=== PATIENT | male | born 1960 | race Caucasian/White ===

== ENCOUNTER 2017-08-30 14:30 | Outpatient (RCR) | payer MEDICARE, SELFPAY ==
[2017-08-10 10:41] VITALS: BP 138/70; PULSE 88; RESP 18; TEMP 37.1; BMI 31.0
--- NOTE | 2017-08-10 11:52 | HP.PCM_ITS ---
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 Code(s): L97.219 - Non-pressure chronic ulcer of right calf with unspecified severity (2) Ulcer of left lower leg Status: Chronic Current Visit: Yes Qualifiers: Non-pressure ulcer stage: with fat layer exposed Qualified Code(s): L97.922 - Non-pressure chronic ulcer of unspecified part of left lower leg with fat layer exposed Code(s): L97.929 - Non-pressure chronic ulcer of unspecified part of left lower leg with unspecified severity (3) Mental deficiency Status: Chronic Current Visit: Yes Code(s): F79 - Unspecified intellectual disabilities (4) Left leg cellulitis Status: Acute Current Visit: Yes Code(s): L03.116 - Cellulitis of left lower limb (5) HTN (hypertension) Status: Chronic Current Visit: No Qualifiers: Hypertension type: essential hypertension Code(s): I10 - Essential (primary) hypertension (6) Noncompliance Status: Chronic Current Visit: Yes Code(s): Z91.19 - Patient's noncompliance with other medical treatment and regimen (7) Leg swelling Status: Chronic Current Visit: Yes Code(s): M79.89 - Other specified soft tissue disorders (8) Edema of both legs Status: Chronic Current Visit: Yes Code(s): R60.0 - Localized edema History of Present Illness Date of Service: 08/10/17 Chief Complaint: Large ulceration of the right lateral calf and 3 ulcerations of the left distal lower extremity; bilateral lower extremity swelling and edema ; left lower extremity cellulitis History of Wound: This is a developmentally disabled 57-year-old male who presents with ulcerations of both lower extremities. These are relatively recent. The patient is a former patient at the [facility], treated for similar problems in the past. The patient sleeps in a recliner, and spends long hours each day and a sitting position. He has been advised to elevate his lower extremities to heart level, or higher. However, he is noncompliant, and resolutely refuses to do so. He lives with his father, who confirms his son's noncompliance, and indicates his inability to convince his son into applying with recommended measures. Patient has failed to elevate his lower extremities, spends long hours each day and a sitting position, and is not wearing his compression stockings, as formerly recommended. He presents now with bilateral lower extremity swelling and edema , which is worse in the right lower extremity, bilateral lower extremity ulcerations, and cellulitis of the left calf. The patient spends most of his day sitting around, watching TV. The patient is communicative, but is obviously developmentally disabled and with a diminished IQ. The patient has undergone a venous duplex examination which is completely normal. There is no evidence of superficial venous incompetence. The patient's noninvasive lower extremity arterial study is also normal, with triphasic waveforms at ankle level bilaterally, and normal ankle?brachial indices bilaterally. Past Medical History Past Medical History: Chronic Problems Ulcer of right calf (Chronic) Noncompliance (Chronic) Leg swelling (Chronic) Edema of both legs (Chronic) Ulcer of left lower leg (Chronic) Mental deficiency (Chronic) HTN (hypertension) (Chronic) Surgical History: tonsillectomy Allergies/Adverse Reactions: Allergies No Known Allergies Allergy (Verified 06/20/17 13:34) Home Medications: Ambulatory Orders Medication Instructions Recorded Lisinopril [Zestril] 10 mg PO DAILY 12/15/16 - Family History Paternal - - No heart disease. Patient's father is alive, aged 89, and healthy. Maternal Diabetes, - - History of cardiac disease Lives: With Family Smoking Status: Never smoker Tobacco Use: Non-smoker Alcohol: None Drugs: None Review of Systems Constitutional: Reports: - - Patient suffers from mental deficiency. Denies: Chills, Fever, Weight Change Eyes: Denies: Pain, Vision Change HEENT: Denies: Difficulty Hearing, Difficulty Swallowing, Sinus Congestion Cardiovascular: Denies: Chest Pain, Palpitations Respiratory: Denies: Cough, Shortness of Breath Gastrointestinal: Denies: Diarrhea, Nausea, Vomiting Genitourinary: Denies: Dysuria, Hematuria Endocrine: Denies: Heat/ Cold Intolerance, Polydipsia, Polyuria Hematologic/ Lymphatic: Denies: Easy Bruising, Easy Bleeding - Physical Exam Vital Signs Temp Pulse Resp BP 98.7 F 88 18 138/70 H 08/10/17 10:41 08/10/17 10:41 08/10/17 10:41 08/10/17 10:41 General: Alert, Cooperative, No apparent distress, Well developed, Well nourished, - - Suffers from mental deficiency HEENT: Atraumatic, PERRLA, EOMI, Normocephalic Oral: Moist Mucosa Neck: No JVD, Negative Carotid Bruits, No Nodes, No Nuchal Rigidity, Trachea Midline Lungs: Clear to auscultation, Normal air movement, No rhonchi, No wheeze, No rales Cardiovascular: Regular Rhythm, Normal S1, Normal S2, No murmurs Abdomen: Soft, Non Tender, Non-Distended Extremities: No clubbing, No cyanosis, No Calf Tenderness, - - An ulceration is noted on the right lateral calf. 3 ulcerations are noted on the left calf. Dimensions are documented elsewhere. Bilateral lower extremity swelling and edema is noted, which is worse in the right lower extremity. Cellulitis is noted of the left calf. Wound Measurements and Assessment WC - Nurse 1 - General Ulcer Measurement Start: 08/10/17 10:41 Freq: Status: Active Protocol: Activity Type Activity Date Activity User E-Sign Co-Sign Detail Recorded Client Recorded Date Recorded By Document 08/10/17 10:41 [id number] 08/10/17 11:01 08/10/17 10:41 Wound Center Nurse 1 [Ulcer Assessment] 6-left lateral leg -Combined with other wound No -Current Size (cm) - Length 1.6 -Current Size (cm) - Width 2.5 -Current Size (cm) - Depth 0.1 -Total Square Cm 4.00 -Photo Taken Yes -Epithelialization None Present -Tunneling No -Undermining/Tunneling No -Circular Undermining No -Classification - Thickness Unclassifiable (Eschar Covered ) -Exudate Amt Small (1-33%) -Exudate Type Serosanguineous -Wound Margin Flat & Intact -Granulation Amt None Present (0 %) -Slough/Fibrin Yes -Necrosis Amt Large (67-100%) -Necrotic Tissue Type Adherent Slough -Structure Exposed N/A -Texture (Kathleen-wound Skin Appearance) Assessed Localized Edema -Moisture (Kathleen-wound Skin Appearance Assessed ) Dry/Scaly -Color (Kathleen-wound Skin Appearance) Assessed Erythema Hemosiderin Staining -Temperature (Kathleen-wound Skin No Abnormality Appearance) (Pt Warm) -Tenderness on Palpation (Kathleen-wound No Skin Appearance) -Ulcer Cleansing Rinsed/ Irrigated with Saline -Foul Odor after Cleansing No -Anesthetic Used 4% Lidocaine Solution 5-Left araujo -Combined with other wound No -Current Size (cm) - Length 3 -Current Size (cm) - Width 2.8 -Current Size (cm) - Depth 0.1 -Total Square Cm 8.4 -Photo Taken Yes -Epithelialization None Present -Tunneling No -Undermining/Tunneling No -Circular Undermining No -Classification - Thickness Unclassifiable (Eschar Covered ) -Exudate Amt Small (1-33%) -Exudate Type Serosanguineous -Wound Margin Flat & Intact -Granulation Amt None Present (0 %) -Slough/Fibrin Yes -Necrosis Amt Large (67-100%) -Necrotic Tissue Type Adherent Slough -Structure Exposed N/A -Texture (Kathleen-wound Skin Appearance) Assessed Localized Edema -Moisture (Kathleen-wound Skin Appearance Assessed ) Dry/Scaly -Color (Kathleen-wound Skin Appearance) Assessed Erythema Hemosiderin Staining -Temperature (Kathleen-wound Skin No Abnormality Appearance) (Pt Warm) -Tenderness on Palpation (Kathleen-wound No Skin Appearance) -Ulcer Cleansing Rinsed/ Irrigated with Saline -Foul Odor after Cleansing No -Anesthetic Used 4% Lidocaine Solution 4-left medial leg -Combined with other wound No -Current Size (cm) - Length 0.8 -Current Size (cm) - Width 1.3 -Current Size (cm) - Depth 0.1 -Total Square Cm 1.04 -Photo Taken Yes -Epithelialization None Present -Tunneling No -Undermining/Tunneling No -Circular Undermining No -Classification - Thickness Unclassifiable (Eschar Covered ) -Exudate Amt Small (1-33%) -Exudate Type Serosanguineous -Wound Margin Flat & Intact -Granulation Amt None Present (0 %) -Slough/Fibrin Yes -Necrosis Amt Large (67-100%) -Necrotic Tissue Type Adherent Slough -Structure Exposed N/A -Texture (Kathleen-wound Skin Appearance) Assessed Localized Edema -Moisture (Kathleen-wound Skin Appearance Assessed ) Dry/Scaly -Color (Kathleen-wound Skin Appearance) Assessed Erythema Rubor -Temperature (Kathleen-wound Skin No Abnormality Appearance) (Pt Warm) -Tenderness on Palpation (Kathleen-wound No Skin Appearance) -Ulcer Cleansing Rinsed/ Irrigated with Saline -Foul Odor after Cleansing No -Anesthetic Used 4% Lidocaine Solution 3-right lateral leg -Combined with other wound No -Current Size (cm) - Length 3 -Current Size (cm) - Width 2 -Current Size (cm) - Depth 0.1 -Total Square Cm 6 -Photo Taken Yes -Epithelialization None Present -Tunneling No -Undermining/Tunneling No -Circular Undermining No -Classification - Thickness Unclassifiable (Eschar Covered ) -Exudate Amt Small (1-33%) -Exudate Type Serosanguineous -Wound Margin Flat & Intact -Granulation Amt None Present (0 %) -Slough/Fibrin Yes -Necrosis Amt Large (67-100%) -Necrotic Tissue Type Adherent Slough -Structure Exposed N/A -Texture (Kathleen-wound Skin Appearance) Assessed Localized Edema -Moisture (Kathleen-wound Skin Appearance Assessed ) Dry/Scaly -Color (Kathleen-wound Skin Appearance) Assessed -Temperature (Kathleen-wound Skin No Abnormality Appearance) (Pt Warm) -Tenderness on Palpation (Kathleen-wound No Skin Appearance) -Ulcer Cleansing Rinsed/ Irrigated with Saline -Foul Odor after Cleansing No -Anesthetic Used 4% Lidocaine Solution [Edema Assessment] -Lower Limb Edema Present Yes -Right Calf (cm) 44 -Right Ankle (cm) 26.5 -Left Calf (cm) 41.8 -Left Ankle (cm) 24.3 Musculoskeletal: No Muscle Wasting Neurological: Cranial nerves II-XII grossly intact, Neuro grossly intact Psych/Mental Status: Agitated, - - Patient suffers from mental deficiency and is somewhat agitated Debridement Note Laterality: Right - Lateral calf Type of Debridement: Excisional debridement Anesthesia Used: 4% Lidocaine Solution Depth: in the subcutaneous layer Percentage of wound debrided: 100 Instrument Used: 5mm curette Severity: Fat Layer Exposed Amount of bleeding with debridement: Mild Bleeding Controlled with: Compression and gauze Patient tolerated procedure well - Additional Wound Laterality: Left - Medial calf Type of Debridement: Excisional debridement Anesthesia Used: 4% Lidocaine Solution Depth: Down to and including healthy tissue, in the subcutaneous layer Percentage of wound debrided: 100 Instrument Used: 5mm curette Severity: Fat Layer Exposed Amount of bleeding with debridement: Mild Bleeding Controlled with: Compression and gauze Patient tolerated procedure: Patient tolerated procedure well - Additional Wound Laterality: Left - Lateral calf Type of Debridement: Excisional debridement Anesthesia Used: 4% Lidocaine Solution Depth: Down to and including healthy tissue, in the subcutaneous layer Percentage of wound debrided: 100 Instrument Used: 5mm curette Severity: Fat Layer Exposed Amount of bleeding with debridement: Mild Bleeding Controlled with: Compression and gauze Patient tolerated procedure: Patient tolerated procedure well - Additional Wound Laterality: Left - Anterior calf Type of Debridement: Excisional debridement Anesthesia Used: 4% Lidocaine Solution Depth: Down to and including healthy tissue, in the subcutaneous layer Percentage of wound debrided: 100 Instrument Used: 5mm curette Severity: Fat Layer Exposed Amount of bleeding with debridement: Mild Bleeding Controlled with: Compression and gauze Patient tolerated procedure: Patient tolerated procedure well Assessment/Plan Active Problems Ulcer of right calf (Chronic) Noncompliance (Chronic) Leg swelling (Chronic) Edema of both legs (Chronic) Ulcer of left lower leg (Chronic) Mental deficiency (Chronic) Left leg cellulitis (Acute) Assessment: This is a 57-year-old developmentally/intellectually disabled male who presents with an ulceration on the right lateral calf and 3 ulcerations on the left calf. This is associated with severe swelling in the lower extremities , particularly on the right. There is also cellulitis involving the left calf. The patient has been noncompliant with recommended measures, and returns with symptoms similar to those before which he has been previously treated. He has failed to elevate his lower extremities as recommended, sleeping in a recliner and sitting ideally throughout much of each day. He has also failed to wear his graduated compression stockings. As a result of his noncompliance, he now presents with the aforementioned symptoms and manifestations. A venous duplex examination and a noninvasive lower extremity arterial study are normal. There is no evidence of superficial venous incompetence or arterial insufficiency. Chronic dependency and patient noncompliance appears to be baker factors in the recurrence of the patient's symptoms. Plan: A culture has been obtained of the ulceration on the left anterior tibial surface. Results will be awaited. Interim, the patient is to be treated empirically with Levaquin 500 mg p.o. daily, for 10 days. We are to use Silver Gisel topically on each of the lower extremity ulcerations. A 3M 2 layer compression wrap will be applied bilaterally. The patient will return twice weekly for a change of his Silver Gisel compression wraps. We have once again reinforced the importance of leg elevation, though the patient's poor insight and lack of compliance just a poor prognostic outcome for the long-term. Activity has been encouraged. Patient has been advised to elevate his lower extremities to heart level as much as possible. He has been advised to refrain from prolonged idle sitting. Despite these recommendations, the patient is poorly compliant, and his mental disability appears to be an impediment to his compliance with recommended measures. Patient will return in 1 week. The patient is not a smoker. Influenza vaccine was not administered today. The patient stands 5 feet 9 inches tall and weighs 218 pounds. His BMI is 32.2, which places him in the obese class I category. Weight loss has been recommended. Patient has been advised to collaborate with his primary care physician as to weight loss options.
[2017-08-13 15:28] VITALS: BP 138/76; PULSE 94; RESP 18; TEMP 36.3; BMI 31.0
--- NOTE | 2017-08-13 15:52 | WC ---
Seen today for Nurse Visit. Notified that the patient has not started on the prescribed antibiotic. Rx for Levaquin that was written 08/10/[address] De Leon has not been filled. [facility] (Pharmacist) called. Verbal Rx given. Notified pharmacist that patient's father has the written order. Next Wound Center visit w/Dr. De Leon 08/17/17
[2017-08-17 11:06] VITALS: BP 131/78; PULSE 68; RESP 16; TEMP 37; BMI 31.0
--- NOTE | 2017-08-17 11:57 | HP.PCM_ITS ---
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 Code(s): L97.219 - Non-pressure chronic ulcer of right calf with unspecified severity (2) Ulcer of left lower leg Status: Chronic Current Visit: Yes Qualifiers: Non-pressure ulcer stage: with fat layer exposed Qualified Code(s): L97.922 - Non-pressure chronic ulcer of unspecified part of left lower leg with fat layer exposed Code(s): L97.929 - Non-pressure chronic ulcer of unspecified part of left lower leg with unspecified severity (3) Mental deficiency Status: Chronic Current Visit: Yes Code(s): F79 - Unspecified intellectual disabilities (4) Left leg cellulitis Status: Acute Current Visit: Yes Code(s): L03.116 - Cellulitis of left lower limb (5) HTN (hypertension) Status: Chronic Current Visit: No Qualifiers: Hypertension type: essential hypertension Code(s): I10 - Essential (primary) hypertension (6) Noncompliance Status: Chronic Current Visit: Yes Code(s): Z91.19 - Patient's noncompliance with other medical treatment and regimen (7) Leg swelling Status: Chronic Current Visit: Yes Code(s): M79.89 - Other specified soft tissue disorders (8) Edema of both legs Status: Chronic Current Visit: Yes Code(s): R60.0 - Localized edema History of Present Illness Date of Service: 08/17/17 Chief Complaint: Large ulceration of the right lateral calf and 3 ulcerations of the left distal lower extremity; bilateral lower extremity swelling and edema ; left lower extremity cellulitis History of Wound: This is a developmentally disabled 57-year-old male who presents with ulcerations of both lower extremities. These are relatively recent. The patient is a former patient at the [facility], treated for similar problems in the past. The patient sleeps in a recliner, and spends long hours each day and a sitting position. He has been advised to elevate his lower extremities to heart level, or higher. However, he is noncompliant, and resolutely refuses to do so. He lives with his father, who confirms his son's noncompliance, and indicates his inability to convince his son into applying with recommended measures. Patient has failed to elevate his lower extremities, spends long hours each day in a sitting position, and has not been wearing his compression stockings, as formerly recommended. He presented with bilateral lower extremity swelling and edema, which was worse in the right lower extremity, bilateral lower extremity ulcerations, and cellulitis of the left calf. The patient spends most of his day sitting around, watching TV. The patient is communicative, but is obviously developmentally disabled and with a diminished IQ. The patient has undergone a venous duplex examination which is completely normal. There is no evidence of superficial venous incompetence. The patient's noninvasive lower extremity arterial study is also normal, with triphasic waveforms at ankle level bilaterally, and normal ankle?brachial indices bilaterally. Since his last visit, we have implemented 3M 2 layer compression wraps to each lower extremity, changed twice weekly. Silver omayra has been used topically on the lower extremity ulcerations. Several of these ulcerations are now healed. Past Medical History Past Medical History: Chronic Problems Ulcer of right calf (Chronic) Noncompliance (Chronic) Leg swelling (Chronic) Edema of both legs (Chronic) Ulcer of left lower leg (Chronic) Mental deficiency (Chronic) HTN (hypertension) (Chronic) Surgical History: tonsillectomy Allergies/Adverse Reactions: Allergies No Known Allergies Allergy (Verified 06/20/17 13:34) Home Medications: Ambulatory Orders Medication Instructions Recorded Lisinopril [Zestril] 10 mg PO DAILY 12/15/16 - Family History Paternal - - No heart disease. Patient's father is alive, aged 89, and healthy. Maternal Diabetes, - - History of cardiac disease Lives: With Family Smoking Status: Never smoker Tobacco Use: Non-smoker Alcohol: None Drugs: None Review of Systems Constitutional: Denies: Chills, Fever, Weight Change Eyes: Denies: Pain, Vision Change HEENT: Denies: Difficulty Hearing, Difficulty Swallowing, Sinus Congestion Cardiovascular: Denies: Chest Pain, Palpitations Respiratory: Denies: Cough, Shortness of Breath Gastrointestinal: Denies: Diarrhea, Nausea, Vomiting Genitourinary: Denies: Dysuria, Hematuria Endocrine: Denies: Heat/ Cold Intolerance, Polydipsia, Polyuria Hematologic/ Lymphatic: Denies: Easy Bruising, Easy Bleeding - Physical Exam Vital Signs Temp Pulse Resp BP 98.6 F 68 16 131/78 H 08/17/17 11:06 08/17/17 11:06 08/17/17 11:06 08/17/17 11:06 General: Alert, Cooperative, No apparent distress, Well developed, Well nourished, - - Patient suffers from cognitive disability HEENT: Atraumatic, PERRLA, EOMI, Normocephalic Oral: Moist Mucosa Neck: No JVD Lungs: Normal air movement Abdomen: Non-Distended Extremities: No clubbing, No cyanosis, No edema, No Calf Tenderness, - - Swelling and edema in the lower extremities appears to be minimal, and well- controlled at this time. The ulceration on the right lateral calf and on the left medial calf are now both completely healed and epithelialized. There remain superficial ulcerations on the left anterior tibial surface and on the left lateral calf. These are very superficial, and dimensions are documented elsewhere. Base of these ulcerations is generally pink and healthy in appearance. Only a small amount of bioburden is noted. Wound Measurements and Assessment WC - Nurse 1 - General Ulcer Measurement Start: 08/10/17 10:41 Freq: Status: Active Protocol: Activity Type Activity Date Activity User E-Sign Co-Sign Detail Recorded Client Recorded Date Recorded By Document 08/17/17 11:06 DV [id number] 08/17/17 11:22 DV 08/17/17 11:06 Wound Center Nurse 1 [Ulcer Assessment] 6-left lateral leg -Current Size (cm) - Length 0.3 -Current Size (cm) - Width 1 -Current Size (cm) - Depth 0.1 -Total Square Cm 0.3 -Photo Taken No -Exudate Amt None Present (0 %) -Exudate Type Serosanguineous -Wound Margin Distinct, Outline Attached -Granulation Amt Small (1-33%) -Granulation Quality [place] -Necrosis Amt None Present (0 %) -Structure Exposed N/A -Texture (Kathleen-wound Skin Appearance) Scarring -Moisture (Kathleen-wound Skin Appearance Dry/Scaly ) -Color (Kathleen-wound Skin Appearance) Hemosiderin Staining -Temperature (Kathleen-wound Skin No Abnormality Appearance) (Pt Warm) -Ulcer Cleansing Wound Cleanser -Foul Odor after Cleansing No -Anesthetic Used 4% Lidocaine Solution 5-Left araujo -Current Size (cm) - Length 1 -Current Size (cm) - Width 0.5 -Current Size (cm) - Depth 0.1 -Total Square Cm 0.5 -Photo Taken No -Exudate Amt None Present (0 %) -Wound Margin Flat & Intact -Granulation Amt Large (67-100%) -Granulation Quality [place] -Necrosis Amt None Present (0 %) -Structure Exposed N/A -Texture (Kathleen-wound Skin Appearance) Scarring -Moisture (Kathleen-wound Skin Appearance Dry/Scaly ) -Color (Kathleen-wound Skin Appearance) Rubor -Temperature (Kathleen-wound Skin No Abnormality Appearance) (Pt Warm) -Ulcer Cleansing Wound Cleanser -Foul Odor after Cleansing No -Anesthetic Used 4% Lidocaine Solution 4-left medial leg -Current Size (cm) - Length 0 -Current Size (cm) - Width 0 -Current Size (cm) - Depth 0 -Total Square Cm 0 -Photo Taken Yes -Exudate Amt None Present (0 %) -Wound Margin Flat & Intact -Granulation Amt Large (67-100%) -Granulation Quality [place] -Necrosis Amt None Present (0 %) -Structure Exposed N/A -Texture (Kathleen-wound Skin Appearance) Scarring -Moisture (Kathleen-wound Skin Appearance Dry/Scaly ) -Color (Kathleen-wound Skin Appearance) Hemosiderin Staining -Ulcer Cleansing Rinsed/ Irrigated with Saline -Foul Odor after Cleansing No 3-right lateral leg -Current Size (cm) - Length 0 -Current Size (cm) - Width 0 -Current Size (cm) - Depth 0 -Total Square Cm 0 -Photo Taken Yes -Exudate Amt None Present (0 %) -Wound Margin Flat & Intact -Granulation Amt Large (67-100%) -Granulation Quality [place] -Necrosis Amt None Present (0 %) -Structure Exposed N/A -Texture (Kathleen-wound Skin Appearance) Scarring -Moisture (Kathleen-wound Skin Appearance Dry/Scaly ) -Color (Kathleen-wound Skin Appearance) No Abnormality -Temperature (Kathleen-wound Skin No Abnormality Appearance) (Pt Warm) -Ulcer Cleansing Wound Cleanser -Foul Odor after Cleansing No [Edema Assessment] -Lower Limb Edema Present Yes -Right Calf (cm) 39 -Right Ankle (cm) 23.5 -Left Calf (cm) 39 -Left Ankle (cm) 22.2 Neurological: Cranial nerves II-XII grossly intact, Neuro grossly intact Psych/Mental Status: - - The patient suffers from cognitive disability. He is generally calm and pleasant today. Debridement Note Post-Debridement Measurements/Treatment WC - Nurse 2 - General Ulcer CM Notes Start: 08/10/17 10:41 Freq: Status: Active Protocol: Activity Type Activity Date Activity User E-Sign Co-Sign Detail Recorded Client Recorded Date Recorded By Document 08/10/17 11:43 TYREL [id number] 08/10/17 11:52 TYREL 08/10/17 11:43 Wound Center Nurse 2 6-left lateral leg -Time 11:44 -Correct Patient Yes -Correct Side, Site, Position Yes -Correct Procedure Yes -Procedure Performed Yes -Type of Procedure Debridement -Clinical Debridement Subcutaneous -Post Debridement Size (cm) - Length 2.0 -Post Debridement Size (cm) - Width 2.0 -Post Debridement Size (cm) - Depth 0.1 -Total Square Cm 4.00 -Wound/Ulcer Outcome Not Healed 5-Left araujo -Time 11:44 -Correct Patient Yes -Correct Side, Site, Position Yes -Correct Procedure Yes -Procedure Performed Yes -Type of Procedure Debridement -Clinical Debridement Subcutaneous -Post Debridement Size (cm) - Length 2.5 -Post Debridement Size (cm) - Width 3.0 -Post Debridement Size (cm) - Depth 0.1 -Total Square Cm 7.50 -Wound/Ulcer Outcome Not Healed -Ulcer Cleansing Rinsed/ Irrigated with Saline -Foul Odor after Cleansing No -Bioengineered Tissue No -Topical Lidocaine (%) 4 -Lidocaine (ml) 5 -Bleeding Controlled with NA -Treatment Response Procedure Tolerated Well 4-left medial leg -Time 11:45 -Correct Patient Yes -Correct Side, Site, Position Yes -Correct Procedure Yes -Procedure Performed Yes -Type of Procedure Debridement -Clinical Debridement Subcutaneous -Post Debridement Size (cm) - Length 0.6 -Post Debridement Size (cm) - Width 0.3 -Post Debridement Size (cm) - Depth 0.1 -Total Square Cm 0.18 -Wound/Ulcer Outcome Not Healed -Ulcer Cleansing Rinsed/ Irrigated with Saline -Foul Odor after Cleansing No -Bioengineered Tissue No -Topical Lidocaine (%) 4 -Lidocaine (ml) 5 -Bleeding Controlled with NA -Treatment Response Procedure Tolerated Well 3-right lateral leg -Time 11:46 -Correct Patient Yes -Correct Side, Site, Position Yes -Correct Procedure Yes -Procedure Performed Yes -Type of Procedure Debridement -Clinical Debridement Subcutaneous -Post Debridement Size (cm) - Length 2.3 -Post Debridement Size (cm) - Width 1.0 -Post Debridement Size (cm) - Depth 0.1 -Total Square Cm 2.30 -Wound/Ulcer Outcome Not Healed -Ulcer Cleansing Rinsed/ Irrigated with Saline -Foul Odor after Cleansing No -Bioengineered Tissue No -Topical Lidocaine (%) 4 -Lidocaine (ml) 5 -Bleeding Controlled with NA -Treatment Response Procedure Tolerated Well Pain Scale: 0-10 Numeric Is Patient Pain Free? Yes Laterality: Left - Anterior tibial surface and left lateral calf Type of Debridement: Selective debridement Anesthesia Used: 4% Lidocaine Solution Percentage of wound debrided: 100 Instrument Used: 5mm curette Severity: Limited To Skin Breakdown Amount of bleeding with debridement: Mild Bleeding Controlled with: Compression and gauze Patient tolerated procedure well Assessment/Plan Active Problems Ulcer of right calf (Chronic) Noncompliance (Chronic) Leg swelling (Chronic) Edema of both legs (Chronic) Ulcer of left lower leg (Chronic) Mental deficiency (Chronic) Left leg cellulitis (Acute) Assessment: This is a 57-year-old developmentally/intellectually disabled male who presented with an ulceration on the right lateral calf and 3 ulcerations on the left calf. The ulceration on the right lateral calf and on the left medial calf are now completely healed and epithelialized. Patient's ulcerations were initially associated with severe swelling in the lower extremities, particularly on the right. There was also cellulitis involving the left calf. The swelling and edema is now essentially resolved. Cellulitic changes in the left lower extremity are also nearly resolved, as the patient was placed on Levaquin 500 mg daily for 10 days at his last appointment a week ago. The patient has been generally noncompliant with recommended measures in the past, and returned with symptoms similar to those for which he has been previously treated. He had failed to elevate his lower extremities as recommended, sleeping in a recliner and sitting ideally throughout much of each day. He has also failed to wear his graduated compression stockings. As a result of his noncompliance, he presented with the aforementioned symptoms and manifestations. A venous duplex examination and a noninvasive lower extremity arterial study are normal. There is no evidence of superficial venous incompetence or arterial insufficiency. Chronic dependency and patient noncompliance appears to be baker factors in the recurrence of the patient's symptoms. Plan: A culture has been obtained of the ulceration on the left anterior tibial surface. Results were positive for staph aureus, sensitive to the Levaquin, which the patient was placed on last week. We are to continue Silver Omayra topically on each of the lower extremity ulcerations. A 3M 2 layer compression wrap will be applied bilaterally. The patient will return twice weekly for a change of his Silver Omayra and compression wraps. We have once again reinforced the importance of leg elevation, though the patient's poor insight and lack of compliance suggest a poor prognostic outcome for the long-term. Activity has been encouraged. Patient has been advised to elevate his lower extremities to heart level as much as possible. He has been advised to refrain from prolonged idle sitting. Despite these recommendations, the patient is poorly compliant, and his mental disability appears to be an impediment to his compliance with recommended measures. Patient will return in 1 week. The patient is not a smoker. Influenza vaccine was not administered today. The patient stands 5 feet 9 inches tall and weighs 218 pounds. His BMI is 32.2, which places him in the obese class I category. Weight loss has been recommended. Patient has been advised to collaborate with his primary care physician as to weight loss options.
[2017-08-20 13:02] VITALS: BP 148/80; PULSE 81; RESP 18; TEMP 36.7; BMI 31.0
[2017-08-23 14:46] VITALS: BP 138/77; PULSE 76; RESP 18; TEMP 37.3; BMI 31.0
--- NOTE | 2017-08-23 15:41 | PCM.WC.HP ---
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 Code(s): L97.219 - Non-pressure chronic ulcer of right calf with unspecified severity (2) Ulcer of left lower leg Status: Chronic Current Visit: Yes Qualifiers: Non-pressure ulcer stage: with fat layer exposed Qualified Code(s): L97.922 - Non-pressure chronic ulcer of unspecified part of left lower leg with fat layer exposed Code(s): L97.929 - Non-pressure chronic ulcer of unspecified part of left lower leg with unspecified severity (3) Mental deficiency Status: Chronic Current Visit: Yes Code(s): F79 - Unspecified intellectual disabilities (4) Left leg cellulitis Status: Acute Current Visit: Yes Code(s): L03.116 - Cellulitis of left lower limb (5) HTN (hypertension) Status: Chronic Current Visit: No Qualifiers: Hypertension type: essential hypertension Code(s): I10 - Essential (primary) hypertension (6) Noncompliance Status: Chronic Current Visit: Yes Code(s): Z91.19 - Patient's noncompliance with other medical treatment and regimen (7) Leg swelling Status: Chronic Current Visit: Yes Code(s): M79.89 - Other specified soft tissue disorders (8) Edema of both legs Status: Chronic Current Visit: Yes Code(s): R60.0 - Localized edema History of Present Illness Date of Service: 08/23/17 Chief Complaint: Large ulceration of the right lateral calf and 3 ulcerations of the left distal lower extremity; bilateral lower extremity swelling and edema; left lower extremity cellulitis History of Wound: This is a developmentally disabled 57-year-old male who presents with ulcerations of both lower extremities. These are relatively recent. The patient is a former patient at the [facility], treated for similar problems in the past. The patient sleeps in a recliner, and spends long hours each day and a sitting position. He has been advised to elevate his lower extremities to heart level, or higher. However, he is noncompliant, and resolutely refuses to do so. He lives with his father, who confirms his son's noncompliance, and indicates his inability to convince his son into applying with recommended measures. Patient has failed to elevate his lower extremities, spends long hours each day in a sitting position, and has not been wearing his compression stockings, as formerly recommended. He presented with bilateral lower extremity swelling and edema, which was worse in the right lower extremity, bilateral lower extremity ulcerations, and cellulitis of the left calf. The patient spends most of his day sitting around, watching TV. The patient is communicative, but is obviously developmentally disabled and with a diminished IQ. The patient has undergone a venous duplex examination which is completely normal. There is no evidence of superficial venous incompetence. The patient's noninvasive lower extremity arterial study is also normal, with triphasic waveforms at ankle level bilaterally, and normal anklebrachial indices bilaterally. We have recently implemented 3M 2 layer compression wraps to each lower extremity, changed twice weekly. Silver omayra has been used topically on the lower extremity ulcerations. Several of these ulcerations are now healed. The ulcerations on the right lower extremity are completely healed, and those in the left lower extremity are nearly healed. Past Medical History Past Medical History: Chronic Problems Ulcer of right calf (Chronic) Noncompliance (Chronic) Leg swelling (Chronic) Edema of both legs (Chronic) Ulcer of left lower leg (Chronic) Mental deficiency (Chronic) HTN (hypertension) (Chronic) Surgical History: tonsillectomy Allergies/Adverse Reactions: Allergies No Known Allergies Allergy (Verified 06/20/17 13:34) Home Medications: Ambulatory Orders Medication Instructions Recorded Lisinopril [Zestril] 10 mg PO DAILY 12/15/16 - Family History Paternal - - No heart disease. Patient's father is alive, aged 89, and healthy. Maternal Diabetes, - - History of cardiac disease Lives: With Family Smoking Status: Never smoker Tobacco Use: Non-smoker Alcohol: None Drugs: None Review of Systems Constitutional: Denies: Chills, Fever, Weight Change Eyes: Denies: Pain, Vision Change HEENT: Denies: Difficulty Hearing, Difficulty Swallowing, Sinus Congestion Cardiovascular: Denies: Chest Pain, Palpitations Respiratory: Denies: Cough, Shortness of Breath Gastrointestinal: Denies: Diarrhea, Nausea, Vomiting Genitourinary: Denies: Dysuria, Hematuria Endocrine: Denies: Heat/ Cold Intolerance, Polydipsia, Polyuria Hematologic/ Lymphatic: Denies: Easy Bruising, Easy Bleeding - Physical Exam Vital Signs Temp Pulse Resp BP 99.1 F 76 18 138/77 H 08/23/17 14:46 08/23/17 14:46 08/23/17 14:46 08/23/17 14:46 General: Alert, Oriented x3, Cooperative, No apparent distress, Well developed, Well nourished HEENT: Atraumatic, PERRLA, EOMI, Normocephalic Oral: Moist Mucosa Neck: No JVD Lungs: Normal air movement Abdomen: Non-Distended Extremities: No clubbing, No cyanosis, No Calf Tenderness, - - No significant swelling or edema in the left lower extremity. Mild right pedal edema is noted. Slight erythema is noted in the left ureter area, though not appearing to be isela cellulitis. There are no open ulcerations in the right lower extremity. The ulcerations in the left lower extremity are essentially healed, but for only a small, superficial ulceration of the left anterior tibial surface. Dimensions are documented elsewhere. Circumference measurements are also documented elsewhere. Wound Measurements and Assessment WC - Nurse 1 - General Ulcer Measurement Start: 08/10/17 10:41 Freq: Status: Active Protocol: Activity Type Activity Date Activity User E-Sign Co-Sign Detail Recorded Client Recorded Date Recorded By Document 08/23/17 14:46 [id number] 08/23/17 15:00 08/23/17 14:46 Wound Center Nurse 1 [Ulcer Assessment] 6-left lateral leg -Combined with other wound No -Current Size (cm) - Length 0 -Current Size (cm) - Width 0 -Current Size (cm) - Depth 0 -Total Square Cm 0 -Date of Last Picture (Recall this 08/23/17 field) -Photo Taken Yes -Epithelialization Large 67-100% -Tunneling No -Undermining/Tunneling No -Circular Undermining No -Classification - Thickness Full Thickness without Exposed Support Structure -Exudate Amt None Present (0 %) -Granulation Amt Large (67-100%) -Granulation Quality Red -Slough/Fibrin No -Necrosis Amt None Present (0 %) -Structure Exposed None/Limited to Skin Breakdown -Texture (Kathleen-wound Skin Appearance) Localized Edema Scarring -Moisture (Kathleen-wound Skin Appearance Dry/Scaly ) -Color (Kathleen-wound Skin Appearance) Erythema Hemosiderin Staining -Temperature (Kathleen-wound Skin No Abnormality Appearance) (Pt Warm) -Tenderness on Palpation (Kathleen-wound No Skin Appearance) -Ulcer Cleansing hibiclens -Foul Odor after Cleansing No 5-Left araujo -Combined with other wound No -Current Size (cm) - Length 0.1 -Current Size (cm) - Width 0.1 -Current Size (cm) - Depth 0.1 -Total Square Cm 0.01 -Date of Last Picture (Recall this 08/23/17 field) -Photo Taken Yes -Epithelialization Large 67-100% -Tunneling No -Undermining/Tunneling No -Circular Undermining No -Classification - Thickness Full Thickness without Exposed Support Structure -Exudate Amt None Present (0 %) -Granulation Amt Large (67-100%) -Granulation Quality [place] -Slough/Fibrin No -Necrosis Amt None Present (0 %) -Structure Exposed None/Limited to Skin Breakdown -Texture (Kathleen-wound Skin Appearance) Localized Edema Scarring -Moisture (Kathleen-wound Skin Appearance Dry/Scaly ) -Color (Kathleen-wound Skin Appearance) Erythema Hemosiderin Staining -Temperature (Kathleen-wound Skin No Abnormality Appearance) (Pt Warm) -Tenderness on Palpation (Kathleen-wound No Skin Appearance) -Ulcer Cleansing hibiclens -Foul Odor after Cleansing No 4-left medial leg -Combined with other wound No -Current Size (cm) - Length 0 -Current Size (cm) - Width 0 -Current Size (cm) - Depth 0 -Total Square Cm 0 -Date of Last Picture (Recall this 08/23/17 field) -Photo Taken Yes -Epithelialization Large 67-100% -Tunneling No -Undermining/Tunneling No -Circular Undermining No -Classification - Thickness Full Thickness without Exposed Support Structure -Exudate Amt None Present (0 %) -Granulation Amt Large (67-100%) -Granulation Quality [place] -Slough/Fibrin No -Necrosis Amt None Present (0 %) -Structure Exposed None/Limited to Skin Breakdown -Texture (Kathleen-wound Skin Appearance) Localized Edema Scarring -Moisture (Kathleen-wound Skin Appearance Dry/Scaly ) -Color (Kathleen-wound Skin Appearance) Erythema Hemosiderin Staining -Temperature (Kathleen-wound Skin No Abnormality Appearance) (Pt Warm) -Tenderness on Palpation (Kathleen-wound No Skin Appearance) -Ulcer Cleansing hibiclens -Foul Odor after Cleansing No [Edema Assessment] -Lower Limb Edema Present Yes -Right Calf (cm) 42.7 -Right Ankle (cm) 25.2 -Left Calf (cm) 37.5 -Left Ankle (cm) 23.0 WC - Nurse 2 - General Ulcer CM Notes Start: 08/10/17 10:41 Freq: Status: Active Protocol: Activity Type Activity Date Activity User E-Sign Co-Sign Detail Recorded Client Recorded Date Recorded By Document 08/23/17 15:17 [id number] 08/23/17 15:23 JS 08/23/17 15:17 Wound Center Nurse 2 [Procedure/Treatment] 5-Left araujo -Time 15:17 -Correct Patient Yes -Correct Side, Site, Position Yes -Correct Procedure No -Post Debridement Size (cm) - Length 0.1 -Post Debridement Size (cm) - Width 0.1 -Post Debridement Size (cm) - Depth 0.1 -Total Square Cm 0.01 -Wound/Ulcer Outcome Not Healed -Ulcer Cleansing Not Cleansed -Foul Odor after Cleansing No -Bioengineered Tissue No -Bleeding Controlled with NA [See Physician Procedure note for Specifics] Pain Scale: 0-10 Numeric [Pain] -Is Patient Pain Free? Yes Neurological: Cranial nerves II-XII grossly intact, Neuro grossly intact Psych/Mental Status: Normal Affect, - - Patient suffers from cognitive impairment. Debridement Note Post-Debridement Measurements/Treatment WC - Nurse 2 - General Ulcer CM Notes Start: 08/10/17 10:41 Freq: Status: Active Protocol: Activity Type Activity Date Activity User E-Sign Co-Sign Detail Recorded Client Recorded Date Recorded By Document 08/10/17 11:43 [id number] 08/10/17 11:52 JS Document 08/17/17 11:43 JS [id number] 08/17/17 11:47 JS Document 08/23/17 15:17 [id number] 08/23/17 15:23 JS 08/10/17 08/17/17 08/23/17 11:43 11:43 15:17 Wound Center Nurse 2 6-left lateral leg -Time 11:44 11:46 -Correct Patient Yes Yes -Correct Side, Site, Position Yes Yes -Correct Procedure Yes Yes -Procedure Performed Yes Yes -Type of Procedure Debridement -Clinical Debridement Subcutaneous Subcutaneous Selective -Post Debridement Size (cm) - Length 2.0 0.3 -Post Debridement Size (cm) - Width 2.0 1.0 -Post Debridement Size (cm) - Depth 0.1 0.1 -Total Square Cm 4.00 0.30 -Wound/Ulcer Outcome Not Healed Not Healed -Ulcer Cleansing Rinsed/ Irrigated with Saline -Foul Odor after Cleansing No -Bioengineered Tissue No -Topical Lidocaine (%) 4 -Lidocaine (ml) 5 -Treatment Response Procedure Tolerated Well 5-Left araujo -Time 11:44 11:45 15:17 -Correct Patient Yes Yes Yes -Correct Side, Site, Position Yes Yes Yes -Correct Procedure Yes Yes No -Procedure Performed Yes Yes -Type of Procedure Debridement Debridement -Clinical Debridement Subcutaneous Selective -Post Debridement Size (cm) - Length 2.5 1.7 0.1 -Post Debridement Size (cm) - Width 3.0 1.5 0.1 -Post Debridement Size (cm) - Depth 0.1 0.1 0.1 -Total Square Cm 7.50 2.55 0.01 -Wound/Ulcer Outcome Not Healed Not Healed Not Healed -Ulcer Cleansing Rinsed/ Not Cleansed Not Cleansed Irrigated with Saline -Foul Odor after Cleansing No No No -Bioengineered Tissue No No No -Topical Lidocaine (%) 4 4 -Lidocaine (ml) 5 5 -Bleeding Controlled with NA NA NA -Treatment Response Procedure Procedure Tolerated Well Tolerated Well 4-left medial leg -Time 11:45 11:44 -Correct Patient Yes Yes -Correct Side, Site, Position Yes Yes -Correct Procedure Yes Yes -Procedure Performed Yes No -Type of Procedure Debridement -Clinical Debridement Subcutaneous -Post Debridement Size (cm) - Length 0.6 0 -Post Debridement Size (cm) - Width 0.3 0 -Post Debridement Size (cm) - Depth 0.1 0 -Total Square Cm 0.18 0 -Wound/Ulcer Outcome Not Healed Healed- Epithelialized -Ulcer Cleansing Rinsed/ Not Cleansed Irrigated with Saline -Foul Odor after Cleansing No -Bioengineered Tissue No -Topical Lidocaine (%) 4 -Lidocaine (ml) 5 -Bleeding Controlled with NA NA -Treatment Response Procedure Tolerated Well 3-right lateral leg -Time 11:46 11:43 -Correct Patient Yes Yes -Correct Side, Site, Position Yes Yes -Correct Procedure Yes Yes -Procedure Performed Yes No -Type of Procedure Debridement -Clinical Debridement Subcutaneous -Post Debridement Size (cm) - Length 2.3 0 -Post Debridement Size (cm) - Width 1.0 0 -Post Debridement Size (cm) - Depth 0.1 0 -Total Square Cm 2.30 0 -Wound/Ulcer Outcome Not Healed Healed- Epithelialized -Ulcer Cleansing Rinsed/ Irrigated with Saline -Foul Odor after Cleansing No No -Bioengineered Tissue No No -Topical Lidocaine (%) 4 -Lidocaine (ml) 5 -Bleeding Controlled with NA NA -Treatment Response Procedure Tolerated Well Pain Scale: 0-10 Numeric Is Patient Pain Free? Yes Yes Yes No debridement was completed today Assessment/Plan Active Problems Ulcer of right calf (Chronic) Noncompliance (Chronic) Leg swelling (Chronic) Edema of both legs (Chronic) Ulcer of left lower leg (Chronic) Mental deficiency (Chronic) Left leg cellulitis (Acute) Assessment: This is a 57-year-old developmentally/intellectually disabled male who presented with an ulceration on the right lateral calf and 3 ulcerations on the left calf. The ulceration on the right lateral calf and on the left medial calf are now completely healed and epithelialized. Patient's ulcerations were initially associated with severe swelling in the lower extremities, particularly on the right. There was also cellulitis involving the left calf. The swelling and edema is now essentially resolved, but for slight right pedal edema. Cellulitic changes in the left lower extremity are also nearly resolved, as the patient was placed on Levaquin 500 mg daily for 10 days recently. The patient has been generally noncompliant with recommended measures in the past, and returned with symptoms similar to those for which he has been previously treated. He had failed to elevate his lower extremities as recommended, sleeping in a recliner and sitting ideally throughout much of each day. He has also failed to wear his graduated compression stockings. As a result of his noncompliance, he presented with the aforementioned symptoms and manifestations. A venous duplex examination and a noninvasive lower extremity arterial study are normal. There is no evidence of superficial venous incompetence or arterial insufficiency. Chronic dependency and patient noncompliance appears to be baker factors in the recurrence of the patient's symptoms. Plan: We are to continue Silver Omayra topically on the small, remaining left lower extremity ulceration. A 3M 2 layer compression wrap will be applied bilaterally. The patient will return twice weekly for a change of his Silver Omayra and compression wraps. We have once again reinforced the importance of leg elevation, though the patient's poor insight and lack of compliance suggest a poor prognostic outcome for the long-term. Activity has been encouraged. Patient has been advised to elevate his lower extremities to heart level as much as possible. He has been advised to refrain from prolonged idle sitting. Despite these recommendations, the patient is poorly compliant, and his cognitive disability appears to be an impediment to his compliance with recommended measures. Patient will return in 1 week. The patient is not a smoker. Influenza vaccine was not administered today. The patient stands 5 feet 9 inches tall and weighs 218 pounds. His BMI is 32.2, which places him in the obese class I category. Weight loss has been recommended. Patient has been advised to collaborate with his primary care physician as to weight loss options.
[2017-08-26 13:21] VITALS: BP 114/72; PULSE 77; RESP 16; TEMP 36.6; BMI 31.0
[2017-08-30 14:46] VITALS: BP 160/75; PULSE 81; RESP 18; TEMP 36.7; BMI 31.0
--- NOTE | 2017-08-30 16:04 | HP.PCM_ITS ---
(1) Ulcer of right calf Status: Resolved Current Visit: Yes Qualifiers: Non-pressure ulcer stage: with fat layer exposed Qualified Code(s): L97.212 - Non-pressure chronic ulcer of right calf with fat layer exposed Code(s): L97.219 - Non-pressure chronic ulcer of right calf with unspecified severity (2) Ulcer of left lower leg Status: Resolved Current Visit: Yes Qualifiers: Non-pressure ulcer stage: with fat layer exposed Qualified Code(s): L97.922 - Non-pressure chronic ulcer of unspecified part of left lower leg with fat layer exposed Code(s): L97.929 - Non-pressure chronic ulcer of unspecified part of left lower leg with unspecified severity (3) Mental deficiency Status: Chronic Current Visit: Yes Code(s): F79 - Unspecified intellectual disabilities (4) Left leg cellulitis Status: Resolved Current Visit: Yes Code(s): L03.116 - Cellulitis of left lower limb (5) HTN (hypertension) Status: Chronic Current Visit: No Qualifiers: Hypertension type: essential hypertension Code(s): I10 - Essential (primary) hypertension (6) Noncompliance Status: Chronic Current Visit: Yes Code(s): Z91.19 - Patient's noncompliance with other medical treatment and regimen (7) Leg swelling Status: Chronic Current Visit: Yes Code(s): M79.89 - Other specified soft tissue disorders (8) Edema of both legs Status: Chronic Current Visit: Yes Code(s): R60.0 - Localized edema History of Present Illness Date of Service: 08/30/17 Chief Complaint: Large ulceration of the right lateral calf and 3 ulcerations of the left distal lower extremity; bilateral lower extremity swelling and edema ; left lower extremity cellulitis History of Wound: This is a developmentally disabled 57-year-old male who presented with ulcerations of both lower extremities. These were relatively recent. The patient is a former patient at the [facility], treated for similar problems in the past. The patient sleeps in a recliner, and spends long hours each day and a sitting position. He has been advised to elevate his lower extremities to heart level, or higher. However, he is noncompliant, and resolutely refuses to do so. He lives with his father, who confirms his son's noncompliance, and indicates his inability to convince his son into applying with recommended measures. Patient has failed to elevate his lower extremities, spends long hours each day in a sitting position, and has not been wearing his compression stockings, as formerly recommended. He presented with bilateral lower extremity swelling and edema, which was worse in the right lower extremity, bilateral lower extremity ulcerations, and cellulitis of the left calf. The patient spends most of his day sitting around, watching TV. The patient is communicative, but is obviously developmentally disabled and with a diminished IQ. The patient has undergone a venous duplex examination which is completely normal. There is no evidence of superficial venous incompetence. The patient's noninvasive lower extremity arterial study is also normal, with triphasic waveforms at ankle level bilaterally, and normal ankle?brachial indices bilaterally. We implemented 3M 2 layer compression wraps to each lower extremity, changed twice weekly. Silver omayra was used topically on the lower extremity ulcerations. These ulcerations are now healed. The ulcerations on both lower extremities are completely healed. Past Medical History Past Medical History: Chronic Problems Noncompliance (Chronic) Leg swelling (Chronic) Edema of both legs (Chronic) Mental deficiency (Chronic) HTN (hypertension) (Chronic) Surgical History: tonsillectomy Allergies/Adverse Reactions: Allergies No Known Allergies Allergy (Verified 06/20/17 13:34) Home Medications: Ambulatory Orders Medication Instructions Recorded Lisinopril [Zestril] 10 mg PO DAILY 12/15/16 - Family History Paternal - - No heart disease. Patient's father is alive, aged 89, and healthy. Maternal Diabetes, - - History of cardiac disease Lives: With Family Smoking Status: Never smoker Tobacco Use: Non-smoker Alcohol: None Drugs: None Review of Systems Constitutional: Denies: Chills, Fever, Weight Change Eyes: Denies: Pain, Vision Change HEENT: Denies: Difficulty Hearing, Difficulty Swallowing, Sinus Congestion Cardiovascular: Denies: Chest Pain, Palpitations Respiratory: Denies: Cough, Shortness of Breath Gastrointestinal: Denies: Diarrhea, Nausea, Vomiting Genitourinary: Denies: Dysuria, Hematuria Endocrine: Denies: Heat/ Cold Intolerance, Polydipsia, Polyuria Hematologic/ Lymphatic: Denies: Easy Bruising, Easy Bleeding - Physical Exam Vital Signs Temp Pulse Resp BP 98.0 F 81 18 160/75 H 08/30/17 14:46 08/30/17 14:46 08/30/17 14:46 08/30/17 14:46 General: Alert, Oriented x3, Cooperative, No apparent distress, Well developed, Well nourished HEENT: PERRLA, EOMI, Normocephalic Oral: Moist Mucosa Neck: No JVD Lungs: Normal air movement Abdomen: Non-Distended Extremities: No clubbing, No cyanosis, No edema, No Calf Tenderness, - - The swelling and edema in the patient's lower extremities appears to be resolved. There is no significant swelling or edema on either side. There are no open wounds or ulcerations on either side. Patient is now completely healed. Skin: No rashes, No breakdown Wound Measurements and Assessment WC - Nurse 1 - General Ulcer Measurement Start: 08/10/17 10:41 Freq: Status: Active Protocol: Activity Type Activity Date Activity User E-Sign Co-Sign Detail Recorded Client Recorded Date Recorded By Document 08/30/17 14:46 [id number] 08/30/17 14:57 08/30/17 14:46 Wound Center Nurse 1 [Ulcer Assessment] 5-Left araujo -Combined with other wound No -Current Size (cm) - Length 0.1 -Current Size (cm) - Width 0.1 -Current Size (cm) - Depth 0.1 -Total Square Cm 0.01 -Photo Taken No -Epithelialization Large 67-100% -Tunneling No -Undermining/Tunneling No -Circular Undermining No -Classification - Thickness Full Thickness without Exposed Support Structure -Exudate Amt None Present (0 %) -Wound Margin Distinct, Outline Attached -Granulation Amt Large (67-100%) -Granulation Quality [place] -Slough/Fibrin Yes -Necrosis Amt Small (1-33%) -Necrotic Tissue Type Adherent Slough -Structure Exposed None/Limited to Skin Breakdown -Texture (Kathleen-wound Skin Appearance) Localized Edema Scarring -Moisture (Kathleen-wound Skin Appearance Dry/Scaly ) -Color (Kathleen-wound Skin Appearance) Erythema -Temperature (Kathleen-wound Skin No Abnormality Appearance) (Pt Warm) -Tenderness on Palpation (Kathleen-wound No Skin Appearance) -Ulcer Cleansing Rinsed/ Irrigated with Saline -Foul Odor after Cleansing No -Anesthetic Used 4% Lidocaine Solution [Edema Assessment] -Lower Limb Edema Present Yes -Right Calf (cm) 38.8 -Right Ankle (cm) 23.5 -Left Calf (cm) 37.0 -Left Ankle (cm) 22.5 WC - Nurse 2 - General Ulcer CM Notes Start: 08/10/17 10:41 Freq: Status: Active Protocol: Activity Type Activity Date Activity User E-Sign Co-Sign Detail Recorded Client Recorded Date Recorded By Document 08/30/17 15:35 [email or web address] 08/30/17 15:36 08/30/17 15:35 Wound Center Nurse 2 [Procedure/Treatment] 5-Left araujo -Time 15:36 -Correct Patient Yes -Correct Side, Site, Position Yes -Correct Procedure Yes -Procedure Performed No -Post Debridement Size (cm) - Length 0 -Post Debridement Size (cm) - Width 0 -Post Debridement Size (cm) - Depth 0 -Total Square Cm 0 -Wound/Ulcer Outcome Healed- Epithelialized [See Physician Procedure note for Specifics] Pain Scale: 0-10 Numeric [Pain] -Is Patient Pain Free? Yes Musculoskeletal: No Muscle Wasting Neurological: Cranial nerves II-XII grossly intact, Neuro grossly intact Psych/Mental Status: Appropriate, - - The patient is communicative, but developmentally disabled. Debridement Note Post-Debridement Measurements/Treatment WC - Nurse 2 - General Ulcer CM Notes Start: 08/10/17 10:41 Freq: Status: Active Protocol: Activity Type Activity Date Activity User E-Sign Co-Sign Detail Recorded Client Recorded Date Recorded By Document 08/10/17 11:43 [id number] 08/10/17 11:52 JS Document 08/17/17 11:43 JS [id number] 08/17/17 11:47 JS Document 08/23/17 15:17 JS [id number] 08/23/17 15:23 JS Document 08/30/17 15:35 JS [id number] 08/30/17 15:36 JS 08/10/17 08/17/17 08/23/17 11:43 11:43 15:17 Wound Center Nurse 2 6-left lateral leg -Time 11:44 11:46 -Correct Patient Yes Yes -Correct Side, Site, Position Yes Yes -Correct Procedure Yes Yes -Procedure Performed Yes Yes -Type of Procedure Debridement -Clinical Debridement Subcutaneous Subcutaneous Selective -Post Debridement Size (cm) - Length 2.0 0.3 -Post Debridement Size (cm) - Width 2.0 1.0 -Post Debridement Size (cm) - Depth 0.1 0.1 -Total Square Cm 4.00 0.30 -Wound/Ulcer Outcome Not Healed Not Healed -Ulcer Cleansing Rinsed/ Irrigated with Saline -Foul Odor after Cleansing No -Bioengineered Tissue No -Topical Lidocaine (%) 4 -Lidocaine (ml) 5 -Treatment Response Procedure Tolerated Well 5-Left araujo -Time 11:44 11:45 15:17 -Correct Patient Yes Yes Yes -Correct Side, Site, Position Yes Yes Yes -Correct Procedure Yes Yes No -Procedure Performed Yes Yes -Type of Procedure Debridement Debridement -Clinical Debridement Subcutaneous Selective -Post Debridement Size (cm) - Length 2.5 1.7 0.1 -Post Debridement Size (cm) - Width 3.0 1.5 0.1 -Post Debridement Size (cm) - Depth 0.1 0.1 0.1 -Total Square Cm 7.50 2.55 0.01 -Wound/Ulcer Outcome Not Healed Not Healed Not Healed -Ulcer Cleansing Rinsed/ Not Cleansed Not Cleansed Irrigated with Saline -Foul Odor after Cleansing No No No -Bioengineered Tissue No No No -Topical Lidocaine (%) 4 4 -Lidocaine (ml) 5 5 -Bleeding Controlled with NA NA NA -Treatment Response Procedure Procedure Tolerated Well Tolerated Well 4-left medial leg -Time 11:45 11:44 -Correct Patient Yes Yes -Correct Side, Site, Position Yes Yes -Correct Procedure Yes Yes -Procedure Performed Yes No -Type of Procedure Debridement -Clinical Debridement Subcutaneous -Post Debridement Size (cm) - Length 0.6 0 -Post Debridement Size (cm) - Width 0.3 0 -Post Debridement Size (cm) - Depth 0.1 0 -Total Square Cm 0.18 0 -Wound/Ulcer Outcome Not Healed Healed- Epithelialized -Ulcer Cleansing Rinsed/ Not Cleansed Irrigated with Saline -Foul Odor after Cleansing No -Bioengineered Tissue No -Topical Lidocaine (%) 4 -Lidocaine (ml) 5 -Bleeding Controlled with NA NA -Treatment Response Procedure Tolerated Well 3-right lateral leg -Time 11:46 11:43 -Correct Patient Yes Yes -Correct Side, Site, Position Yes Yes -Correct Procedure Yes Yes -Procedure Performed Yes No -Type of Procedure Debridement -Clinical Debridement Subcutaneous -Post Debridement Size (cm) - Length 2.3 0 -Post Debridement Size (cm) - Width 1.0 0 -Post Debridement Size (cm) - Depth 0.1 0 -Total Square Cm 2.30 0 -Wound/Ulcer Outcome Not Healed Healed- Epithelialized -Ulcer Cleansing Rinsed/ Irrigated with Saline -Foul Odor after Cleansing No No -Bioengineered Tissue No No -Topical Lidocaine (%) 4 -Lidocaine (ml) 5 -Bleeding Controlled with NA NA -Treatment Response Procedure Tolerated Well Pain Scale: 0-10 Numeric Is Patient Pain Free? Yes Yes Yes 08/30/17 15:35 Wound Center Nurse 2 6-left lateral leg -Time -Correct Patient -Correct Side, Site, Position -Correct Procedure -Procedure Performed -Type of Procedure -Clinical Debridement -Post Debridement Size (cm) - Length -Post Debridement Size (cm) - Width -Post Debridement Size (cm) - Depth -Total Square Cm -Wound/Ulcer Outcome -Ulcer Cleansing -Foul Odor after Cleansing -Bioengineered Tissue -Topical Lidocaine (%) -Lidocaine (ml) -Treatment Response 5-Left araujo -Time 15:36 -Correct Patient Yes -Correct Side, Site, Position Yes -Correct Procedure Yes -Procedure Performed No -Type of Procedure -Clinical Debridement -Post Debridement Size (cm) - Length 0 -Post Debridement Size (cm) - Width 0 -Post Debridement Size (cm) - Depth 0 -Total Square Cm 0 -Wound/Ulcer Outcome Healed- Epithelialized -Ulcer Cleansing -Foul Odor after Cleansing -Bioengineered Tissue -Topical Lidocaine (%) -Lidocaine (ml) -Bleeding Controlled with -Treatment Response 4-left medial leg -Time -Correct Patient -Correct Side, Site, Position -Correct Procedure -Procedure Performed -Type of Procedure -Clinical Debridement -Post Debridement Size (cm) - Length -Post Debridement Size (cm) - Width -Post Debridement Size (cm) - Depth -Total Square Cm -Wound/Ulcer Outcome -Ulcer Cleansing -Foul Odor after Cleansing -Bioengineered Tissue -Topical Lidocaine (%) -Lidocaine (ml) -Bleeding Controlled with -Treatment Response 3-right lateral leg -Time -Correct Patient -Correct Side, Site, Position -Correct Procedure -Procedure Performed -Type of Procedure -Clinical Debridement -Post Debridement Size (cm) - Length -Post Debridement Size (cm) - Width -Post Debridement Size (cm) - Depth -Total Square Cm -Wound/Ulcer Outcome -Ulcer Cleansing -Foul Odor after Cleansing -Bioengineered Tissue -Topical Lidocaine (%) -Lidocaine (ml) -Bleeding Controlled with -Treatment Response Pain Scale: 0-10 Numeric Is Patient Pain Free? Yes No debridement was completed today Assessment/Plan Active Problems Noncompliance (Chronic) Leg swelling (Chronic) Edema of both legs (Chronic) Mental deficiency (Chronic) Assessment: This is a 57-year-old developmentally/intellectually disabled male who presented with an ulceration on the right lateral calf and 3 ulcerations on the left calf. The ulcerations are now completely healed and epithelialized bilaterally. The swelling and edema is now resolved. There is no evidence of cellulitis or infection. A venous duplex examination and a noninvasive lower extremity arterial study are normal. There is no evidence of superficial venous incompetence or arterial insufficiency. Chronic dependency and patient noncompliance appear to be baker factors in the patient's presenting symptoms. Plan: Patient has done well. He is now completely healed and epithelialized. The swelling and edema has resolved. The patient is to be discharged. He will follow-up henceforth on an as-needed basis. We are to attempt to secure home health for the patient's needs at home. He has been instructed to elevate his lower extremities as much as possible, even during daytime hours. Prescription has been provided for graduated compression stockings of 10-15 mmHg compression. It is unlikely that he would be compliant with a higher degree of compression. A lack of compliance suggests a poor prognostic outcome for the long-term. Activity has been encouraged. Patient has been advised to elevate his lower extremities to heart level as much as possible. He has been advised to refrain from prolonged idle sitting. Despite these recommendations, the patient is poorly compliant, and his cognitive disability appears to be an impediment to his compliance with recommended measures. The patient is to be discharged. The patient is not a smoker. Influenza vaccine was not administered today. The patient stands 5 feet 9 inches tall and weighs 218 pounds. His BMI is 32.2, which places him in the obese class I category. Weight loss has been recommended. Patient has been advised to collaborate with his primary care physician as to weight loss options.
== END 2017-09-04 23:59 ==
LOC: WC 14:30
PROVIDERS: Family Provider Family Medicine; PCP Family Medicine; Visit Provider Surgery
DX: L97.212 Non-pressure chronic ulcer of right calf with fat layer exposed (principal); Z91.19 Patient's noncompliance with other medical treatment and regimen; R60.0 Localized edema; M79.89 Other specified soft tissue disorders; I10 Essential (primary) hypertension; L03.116 Cellulitis of left lower limb; F79 Unspecified intellectual disabilities; L97.222 Non-pressure chronic ulcer of left calf with fat layer exposed
CPT/HCPCS: 11042; 29581; 87070; 87075; 87077; 87186; 87205; 97597; 99211; 99212; 99213; 99214; G0463

== ENCOUNTER 2017-12-27 15:42 | Inpatient (IN) | payer MEDICARE, SELFPAY ==
[2017-12-27 15:43] VITALS: BP 148/82; PULSE 84; RESP 16; TEMP 36.6; O2SAT 99; BMI 34.7
[2017-12-27 17:56] VITALS: BP 139/74; PULSE 80; RESP 16; O2SAT 96
[2017-12-27 18:28] LABS: Absolute Lymphocyte Count 6.89 X10^3/ul (0.83-4.51); Absolute Neutrophil Count 6.2 X10^3/uL (2.0-7.7); Basophil# 0.03 X10^3/uL; Basophil% 0.2 % (0-1); Eosinophil# 0.17 X10^3/uL; Eosinophils% 1.2 % (0-5); Hematocrit 41.6 % (40-54); Lymphocyte # 6.89 X10^3/ul (4.0); Lymphocyte % 48.7 % (19-41); Mean Corp Hgb Conc 33.7 g/gl (32-36); Mean Corpuscular Hgb 30.8 pg (27.0-32.0); Mean Corpuscular Volume 91.6 fL (80-94); Mean Platelet Vol. 12.2 fl (6.2-12.0); Monocyte# 0.87 X10^3/uL; Monocyte% 6.1 % (0-10); Neutrophil # 6.17 X10^3/uL (2.7-7.7); Neutrophil % 43.7 % (47-70); Platelet Count 270 K/mm3 (150-450); RBC Distribution Width CV 14.1 % (11.6-14.6); RBC Distribution Width SD 46.2 fl (35.1-43.9); Red Blood Count 4.54 M/mm3 (4.6-6.2); White Blood Count 14.2 K/mm3 (4.4-11.0)
[2017-12-27 18:31] LABS: Differential Indicated SCAN CRITERIA MET; POSITIVE COUNT NO; POSITIVE DIFFERENTIAL YES; POSITIVE MORPHOLOGY NO
[2017-12-27 19:07] VITALS: BP 134/83; PULSE 83; RESP 16; O2SAT 98
--- NOTE | 2017-12-27 19:07 | ED.DCSUM_ITS ---
- ER Visit Summary Date of Service: 12/27/17 Chief Complaint: [Redness and swelling to both lower extremities] History of Present Illness: The patient is a 57 M [presents the emergency department with complaint of redness and swelling to his lower extremities for the last 3 weeks. Patient apparently picks at his lower extremities frequently per family member. Patient was seen at an urgent care 5 days ago and started on Keflex and doxycycline however that they have not seen much improvement in the patient's legs. Patient has not been running a fever. Patient scheduled to see the wound center in 4 days.] Physical Examination: [HEENT-PERRLA, EOMI. Cranial nerves II through XII grossly intact. TMs clear. Mucous membranes moist. No adenopathy. Cardiovascular-regular rate and rhythm without murmur or ectopy Lungs-clear to auscultation, chest wall stable without crepitus or subcu emphysema Abdomen-normoactive bowel sounds, soft, nontender, no rebound or rigidity, no peritoneal signs. Extremities-intact ?4, normal range of motion, normal pulses. Patient has diffuse erythema to both lower extremities from inferior to the knee to the feet. Patient has multiple excoriated lesions noted that are weeping. Test Results: [CBC with differential obtained showed a white count of 14,000, hemoglobin 14, hematocrit 42, platelets 270. Chemistries and lactate pending] Emergency Department Course and Treatment: [Patient was started on vancomycin and Unasyn Treatment Plan: [Admit] Disposition: Admit [] Impression: [Bilateral lower extremity cellulitis-failed outpatient therapy] This note was generated with [employer] dictation software. It may contain incorrect words, spelling, and punctuation that were not noted in review of the chart prior to signing ED Disposition - Plan for ED Patient: Chief Complaint: Cellulitis Referrals: Wilfredo Knutson MD [Primary Care Provider] -
[2017-12-27 19:11] LABS: Anion Gap 4 (5-15); BUN 11 mg/dL (7-18); BUN/Creat Ratio 12.2 RATIO (10-20); Calcium,Total 8.9 mg/dL (8.5-10.1); Chloride 107 mmol/L (98-107); EST Glomerular Filtration Rate 92 mL/min (>60); Est Glom Filt Rate - Afr Amer 111 mL/min (>60); Estimated Creatinine Clearance 89.47 ml/min; Glucose 77 mg/dL (74-106); Potassium 4.6 mmol/L (3.5-5.1); Sodium Level 141 mmol/L (136-145)
[2017-12-27 19:15] LABS: Lactic Acid 1.3 mmol/L (0.4-2.0)
--- NOTE | 2017-12-27 19:18 | PCM.HP.STD ---
Problem List (1) Cellulitis of both lower extremities Status: Acute History of Present Illness Date of Admission: 12/27/17 Chief Complaint: redness and swelling of both lower extremities The patient is a 57 year old M with a history of hypertension and MRDD. He was admitted via the ED on 12/27/2017 with a complaint of redness and swelling of both lower extremities. Patient was accompanied by his [id number] will give the history as patient could not really give much of history. Symptoms started about 2 weeks ago and the attributed to patient's incessant picking of his lower extremities. The redness and swelling progressively worsened as well as pain, with associated pus discharge from areas of ulceration. He was taken to an urgent care center last week and sent home on p.o. doxycycline and Keflex. Symptoms however worsened and so they decided to bring him to the ED today. He had no associated fever or chills, no cough or chest pain, no shortness of breath, no abdominal pain, no diarrhea vomiting. Patient does have a history of recurrent cellulitis due to this incessant picking. Review of systems otherwise negative. In the ED, vitals were significant for temperature of 98 Fahrenheit, blood pressure 139/74, pulse rate of 18 respiratory rate of 16. White cell count was elevated at 14.2. Given a dose of IV vancomycin and Unasyn in the ED and is been admitted to be managed for cellulitis of both lower extremities. [] Past Medical History Past Medical History (Chronic Problems): Chronic Problems Noncompliance (Chronic) Leg swelling (Chronic) Edema of both legs (Chronic) Mental deficiency (Chronic) HTN (hypertension) (Chronic) Allergies No Known Allergies Allergy (Verified 06/20/17 13:34) Home Medications: Ambulatory Orders Medication Instructions Recorded Lisinopril [Zestril] 10 mg PO DAILY 12/15/16 Cephalexin [Cephalexin] 500 mg PO TID 12/27/17 Doxycycline Monohydrate 100 mg PO BID 12/27/17 Mupirocin [Bactroban] 1 applic TOPICAL TID 12/27/17 Surgical History: tonsillectomy Psychiatric History: - - MRDD Lives: With Family - with father Smoking Status: Never smoker Alcohol: None Drugs: None - *Family History Paternal History Items: - - No heart disease. Patient's father is alive, aged 90, and healthy. Maternal History Items: Diabetes, - - History of cardiac disease Review of Systems Constitutional: Denies: Chills, Fever, Weight Change Eyes: Denies: Blurred vision HEENT: Denies: Head Aches, Sinus Congestion, Sinus Drainage Cardiovascular: Denies: Chest Pain, Palpitations Respiratory: Denies: Cough, Shortness of breath at rest, Sputum production Gastrointestinal: Denies: Abdominal Pain, Nausea, Vomiting Genitourinary: Denies: Dysuria Musculoskeletal: Denies: Joint Pain, Joint Tenderness Skin: Reports: - - bilateral lower extremity pain, redness and swelling Neurological: Denies: Numbness, Tingling, Focal weakness Psychiatric: Denies: Anxiety, Depression, Homicidal Ideations, Suicidal Ideations Hematologic/ Lymphatic: Denies: Easy Bruising, Easy Bleeding VTE Information - Inpt Only VTE Present on Admission: No VTE Mechan Device Prophylaxis: SCD's, None VTE Pharm Prophylaxis ordered?: Yes Patient Problems: Active and Suspected Problems Cellulitis of both lower extremities (Acute) - Physical Exam General: Alert, Cooperative, No apparent distress HEENT: Atraumatic, PERRLA, EOMI, Normocephalic Oral: Moist Mucosa Neck: Supple, No JVD, Negative Carotid Bruits Lungs: Clear to auscultation, Normal air movement, No rhonchi, No wheeze Cardiovascular: Regular rate, Regular Rhythm, Normal S1, Normal S2, No murmurs Abdomen: Bowel Sounds Present, Soft, Non Tender, Non-Distended, No Hepato-splenomegaly Extremities: No edema, Capillary Refill Less than 3 Seconds Skin: - - bilateral LE redness, extending from ankle to midshin. Right lower extremity is more swollen than the left. healing superficial ulcerations and abrasions on both lower extremities. Both LEs are warm to touch. dry pus-like discharge on LEs Musculoskeletal: No Tenderness to Palpation of Joints or Extremities Lymphatic: No Cervical, Supraclavicular, or Inguinal Adenopathy Neurological: Cranial nerves II-XII grossly intact Psych/Mental Status: Normal Affect, Appropriate, Alert and oriented to time, place, person, mood and affect Vital Signs Temp Pulse Resp BP Pulse Ox 98 F 83 16 134/83 H 98 12/27/17 15:43 12/27/17 19:07 12/27/17 19:07 12/27/17 19:07 12/27/17 19:07 Oxygen Delivery Method Room Air Weight: 235 lb Body Mass Index (BMI) 34.7 Laboratory Tests Past 24 Hrs 12/27/17 12/27/17 12/27/17 17:29 17:29 17:29 WBC 14.2 H RBC 4.54 L Hgb 14.0 Hct 41.6 MCV 91.6 MCH 30.8 MCHC 33.7 RDW 14.1 RDW Differential 46.2 H Plt Count 270 MPV 12.2 H Immature Gran % (Auto) 0.100 Neut % (Auto) 43.7 L Lymph % (Auto) 48.7 H [place] % (Auto) 6.1 Eos % (Auto) 1.2 Baso % (Auto) 0.2 Absolute Neuts (auto) 6.2 Absolute Lymphs (auto) 6.89 H Total Counted Not Reportable Differential Comment Sodium Cancelled Potassium Cancelled Chloride Cancelled Carbon Dioxide Cancelled Anion Gap Cancelled BUN Cancelled Creatinine Cancelled Estim Creat Clear Calc Cancelled Est GFR (MDRD) Af Amer Cancelled Est GFR (MDRD) Non-Af Cancelled BUN/Creatinine Ratio Cancelled Glucose Cancelled Lactic Acid Cancelled Calcium Cancelled 12/27/17 12/27/17 18:26 18:26 WBC RBC Hgb Hct MCV MCH MCHC RDW RDW Differential Plt Count MPV Immature Gran % (Auto) Neut % (Auto) Lymph % (Auto) [place] % (Auto) Eos % (Auto) Baso % (Auto) Absolute Neuts (auto) Absolute Lymphs (auto) Total Counted Differential Comment Sodium 141 Potassium 4.6 Chloride 107 Carbon Dioxide 30.0 Anion Gap 4 L BUN 11 Creatinine 0.90 Estim Creat Clear Calc 89.47 Est GFR (MDRD) Af Amer 111 Est GFR (MDRD) Non-Af 92 BUN/Creatinine Ratio 12.2 Glucose 77 Lactic Acid 1.3 Calcium 8.9 Assessment/Plan All Active Problems Ulcer of right calf (Resolved) Cellulitis of both lower extremities (Acute) Ulcer of left lower leg (Resolved) Constipation (Acute) Abdominal pain (Acute) Left leg cellulitis (Resolved) Sepsis (Acute) 79-year-old male presenting with lower extremity redness, swelling and pain of 2 weeks duration. 1. Cellulitis of both lower extremities Likely due to trauma as patient is always picking at his legs No assisted fever or chills. White cell count elevated at 14.2. Will admit to MedSurg unit. Area of redness demarcated to monitor for resolution. Received 1 dose of IV vancomycin and Unasyn in the ED. Has a history of MRSA according to family will get blood cultures Will continue IV vancomycin, pharmacy to dose. To keep lower extremities elevated. Counseled to stop picking at his lower extremities. Will get duplex of lower extremities to rule out any DVT as right lower extremities is simply most swollen than left lower extremity. Will check A1c 2. hypertension fairly controlled. On lisinopril; will continue. 3.MRDD: stable 4. Code status: Patient's [id number] counseled extensively about CODE STATUS, the different types and definitions. Patient currently lives with his 90-year-old father. [id number] states that he wishes that patient remains full code. This note was generated with [employer] dictation software. It may contain incorrect words, spelling, and punctuation that were not noted in checking the note before signing. Code Visit Inpatient E&M: 45595 Init Hosp L3
[2017-12-27 19:22] VITALS: BMI 34.7
[2017-12-27 19:24] VITALS: BP 134/83; PULSE 88; RESP 16; O2SAT 98
--- NOTE | 2017-12-27 19:30 | HP.PCM_ITS ---
Problem List (1) Cellulitis of both lower extremities Status: Acute History of Present Illness Date of Admission: 12/27/17 Chief Complaint: redness and swelling of both lower extremities The patient is a 57 year old M with a history of hypertension and MRDD. He was admitted via the ED on 12/27/2017 with a complaint of redness and swelling of both lower extremities. Patient was accompanied by his [id number] will give the history as patient could not really give much of history. Symptoms started about 2 weeks ago and the attributed to patient's incessant picking of his lower extremities. The redness and swelling progressively worsened as well as pain, with associated pus discharge from areas of ulceration. He was taken to an urgent care center last week and sent home on p.o. doxycycline and Keflex. Symptoms however worsened and so they decided to bring him to the ED today. He had no associated fever or chills, no cough or chest pain, no shortness of breath, no abdominal pain, no diarrhea vomiting. Patient does have a history of recurrent cellulitis due to this incessant picking. Review of systems otherwise negative. In the ED, vitals were significant for temperature of 98 Fahrenheit, blood pressure 139/74, pulse rate of 18 respiratory rate of 16. White cell count was elevated at 14.2. Given a dose of IV vancomycin and Unasyn in the ED and is been admitted to be managed for cellulitis of both lower extremities. [] Past Medical History Past Medical History (Chronic Problems): Chronic Problems Noncompliance (Chronic) Leg swelling (Chronic) Edema of both legs (Chronic) Mental deficiency (Chronic) HTN (hypertension) (Chronic) Allergies No Known Allergies Allergy (Verified 06/20/17 13:34) Home Medications: Ambulatory Orders Medication Instructions Recorded Lisinopril [Zestril] 10 mg PO DAILY 12/15/16 Cephalexin [Cephalexin] 500 mg PO TID 12/27/17 Doxycycline Monohydrate 100 mg PO BID 12/27/17 Mupirocin [Bactroban] 1 applic TOPICAL TID 12/27/17 Surgical History: tonsillectomy Psychiatric History: - - MRDD Lives: With Family - with father Smoking Status: Never smoker Alcohol: None Drugs: None - *Family History Paternal History Items: - - No heart disease. Patient's father is alive, aged 90, and healthy. Maternal History Items: Diabetes, - - History of cardiac disease Review of Systems Constitutional: Denies: Chills, Fever, Weight Change Eyes: Denies: Blurred vision HEENT: Denies: Head Aches, Sinus Congestion, Sinus Drainage Cardiovascular: Denies: Chest Pain, Palpitations Respiratory: Denies: Cough, Shortness of breath at rest, Sputum production Gastrointestinal: Denies: Abdominal Pain, Nausea, Vomiting Genitourinary: Denies: Dysuria Musculoskeletal: Denies: Joint Pain, Joint Tenderness Skin: Reports: - - bilateral lower extremity pain, redness and swelling Neurological: Denies: Numbness, Tingling, Focal weakness Psychiatric: Denies: Anxiety, Depression, Homicidal Ideations, Suicidal Ideations Hematologic/ Lymphatic: Denies: Easy Bruising, Easy Bleeding VTE Information - Inpt Only VTE Present on Admission: No VTE Mechan Device Prophylaxis: SCD's, None VTE Pharm Prophylaxis ordered?: Yes Patient Problems: Active and Suspected Problems Cellulitis of both lower extremities (Acute) - Physical Exam General: Alert, Cooperative, No apparent distress HEENT: Atraumatic, PERRLA, EOMI, Normocephalic Oral: Moist Mucosa Neck: Supple, No JVD, Negative Carotid Bruits Lungs: Clear to auscultation, Normal air movement, No rhonchi, No wheeze Cardiovascular: Regular rate, Regular Rhythm, Normal S1, Normal S2, No murmurs Abdomen: Bowel Sounds Present, Soft, Non Tender, Non-Distended, No Hepato- splenomegaly Extremities: No edema, Capillary Refill Less than 3 Seconds Skin: - - bilateral LE redness, extending from ankle to midshin. Right lower extremity is more swollen than the left. healing superficial ulcerations and abrasions on both lower extremities. Both LEs are warm to touch. dry pus-like discharge on LEs Musculoskeletal: No Tenderness to Palpation of Joints or Extremities Lymphatic: No Cervical, Supraclavicular, or Inguinal Adenopathy Neurological: Cranial nerves II-XII grossly intact Psych/Mental Status: Normal Affect, Appropriate, Alert and oriented to time, place, person, mood and affect Vital Signs Temp Pulse Resp BP Pulse Ox 98 F 83 16 134/83 H 98 12/27/17 15:43 12/27/17 19:07 12/27/17 19:07 12/27/17 19:07 12/27/17 19:07 Oxygen Delivery Method Room Air Weight: 235 lb Body Mass Index (BMI) 34.7 Laboratory Tests Past 24 Hrs 12/27/17 12/27/17 12/27/17 17:29 17:29 17:29 WBC 14.2 H RBC 4.54 L Hgb 14.0 Hct 41.6 MCV 91.6 MCH 30.8 MCHC 33.7 RDW 14.1 RDW Differential 46.2 H Plt Count 270 MPV 12.2 H Immature Gran % (Auto) 0.100 Neut % (Auto) 43.7 L Lymph % (Auto) 48.7 H [place] % (Auto) 6.1 Eos % (Auto) 1.2 Baso % (Auto) 0.2 Absolute Neuts (auto) 6.2 Absolute Lymphs (auto) 6.89 H Total Counted Not Reportable Differential Comment Sodium Cancelled Potassium Cancelled Chloride Cancelled Carbon Dioxide Cancelled Anion Gap Cancelled BUN Cancelled Creatinine Cancelled Estim Creat Clear Calc Cancelled Est GFR (MDRD) Af Amer Cancelled Est GFR (MDRD) Non-Af Cancelled BUN/Creatinine Ratio Cancelled Glucose Cancelled Lactic Acid Cancelled Calcium Cancelled 12/27/17 12/27/17 18:26 18:26 WBC RBC Hgb Hct MCV MCH MCHC RDW RDW Differential Plt Count MPV Immature Gran % (Auto) Neut % (Auto) Lymph % (Auto) [place] % (Auto) Eos % (Auto) Baso % (Auto) Absolute Neuts (auto) Absolute Lymphs (auto) Total Counted Differential Comment Sodium 141 Potassium 4.6 Chloride 107 Carbon Dioxide 30.0 Anion Gap 4 L BUN 11 Creatinine 0.90 Estim Creat Clear Calc 89.47 Est GFR (MDRD) Af Amer 111 Est GFR (MDRD) Non-Af 92 BUN/Creatinine Ratio 12.2 Glucose 77 Lactic Acid 1.3 Calcium 8.9 Assessment/Plan All Active Problems Ulcer of right calf (Resolved) Cellulitis of both lower extremities (Acute) Ulcer of left lower leg (Resolved) Constipation (Acute) Abdominal pain (Acute) Left leg cellulitis (Resolved) Sepsis (Acute) 79-year-old male presenting with lower extremity redness, swelling and pain of 2 weeks duration. 1. Cellulitis of both lower extremities * Likely due to trauma as patient is always picking at his legs * No assisted fever or chills. White cell count elevated at 14.2. * Will admit to MedSurg unit. Area of redness demarcated to monitor for resolution. * Received 1 dose of IV vancomycin and Unasyn in the ED. Has a history of MRSA according to family * will get blood cultures * Will continue IV vancomycin, pharmacy to dose. * To keep lower extremities elevated. * Counseled to stop picking at his lower extremities. * Will get duplex of lower extremities to rule out any DVT as right lower extremities is simply most swollen than left lower extremity. * Will check A1c * 2. hypertension * fairly controlled. On lisinopril; will continue. * * 3.MRDD: stable 4. Code status: Patient's [id number] counseled extensively about CODE STATUS , the different types and definitions. Patient currently lives with his 90-year -old father. [id number] states that he wishes that patient remains full code. This note was generated with [employer] dictation software. It may contain incorrect words, spelling, and punctuation that were not noted in checking the note before signing. Code Visit Inpatient E&M: 45890 Init Hosp L3
--- NOTE | 2017-12-27 19:34 | VDLE_ITS ---
Reason For Study: LEG SWELLING RIGHT LEFT GSV is normal. GSV is normal. CFV is compressible, spontaneous, phasic, CFV is compressible, spontaneous, phasic, competent and demonstrates normal competent, and demonstrates normal augmentation. augmentation. FV is compressible, spontaneous, phasic, FV is compressible, spontaneous, phasic, competent and demonstrates normal competent and demonstrates normal augmentation. augmentation. POP V is compressible, spontaneous, phasic, POP V is compressible, spontaneous, phasic, competent and demonstrates normal competent and demonstrates normal augmentation. augmentation. T/P Trunk is compressible. T/P Trunk is compressible. PTV is compressible. PTV is compressible. RT PerV is compressible. LT PerV is compressible. Procedure Exam performed portable in patient room. A preliminary report was called and/or faxed to [facility]. Interpretation Summary Deep veins of the lower extremities are bilaterally patent and compressible segmentally. There is no evidence of deep vein thrombosis on either side. Valvular competence appears intact within the proximal deep venous systems bilaterally. The greater saphenous veins appear bilaterally patent and compressible segmentally. Ordering Physician: Shreya Jacob Referring Physician: MD [facility] Performed By: Coco Heck RVT
[2017-12-27 19:47] VITALS: BMI 35.1
[2017-12-27 19:48] VITALS: BP 151/79; PULSE 78; RESP 16; TEMP 36.7; O2SAT 100
[2017-12-27 22:09] LABS: Hemoglobin A1c 6.4 % (4.2-6.3)
[2017-12-28 02:00] VITALS: BP 133/80; PULSE 65; RESP 18; TEMP 36.4; O2SAT 100
--- NOTE | 2017-12-28 05:50 | PCM.RX.CS ---
Consult Pharmacy has been consulted to manage selected antiobiotic: Vancomycin Type of Consult: New start Suspected Infection: Skin/Soft tissue Labs: Sodium 141 mmol/L (136-145) 12/27/17 18:26 Potassium 4.6 mmol/L (3.5-5.1) 12/27/17 18:26 Chloride 107 mmol/L (98-107) 12/27/17 18:26 Carbon Dioxide 30.0 mmol/L (21.0-32.0) 12/27/17 18:26 Anion Gap 4 (5-15) L 12/27/17 18:26 BUN 11 mg/dL (7-18) 12/27/17 18: Creatinine 0.90 mg/dL (0.70-1.30) 12/27/17 18:26 Est GFR (MDRD) Af Amer 111 mL/min (>60) 12/27/17 18:26 Est GFR (MDRD) Non-Af 92 mL/min (>60) 12/27/17 18:26 BUN/Creatinine Ratio 12.2 RATIO (10-20) 12/27/17 18:26 Glucose 77 mg/dL (74-106) 12/27/17 18:26 Estimated Creatinine Clearance: 89.5 Goal Trough: 15-20 mcg/mL Pharmacy Plan for Drug Dosing: Pharmacy Service will continue to monitor and adjust dosing as required. Medications Vancomycin HCl 1,750 mg/ (Sodium Chloride) 535 mls @ 260 mls/hr IV Q12H [place] Follow-Up Labs: Trough Vancomycin Labs to be done on [date and time ordered]: 12/29 @0700
[2017-12-28 09:00] VITALS: BP 137/89; PULSE 74; RESP 18; TEMP 36.6; O2SAT 100
[2017-12-28] MEDS: Lisinopril 10 MG Tablet PO (09:02)
[2017-12-28] MEDS: Ondansetron 4 MG/2 ML Vial IV (10:36)
[2017-12-28 11:05] LABS: M R Staph aureus DNA By PCR Negative (Negative); Probe Check PASS; Specimen Processing Control PASS; Staph aureus DNA By PCR POSITIVE (Negative)
--- NOTE | 2017-12-28 13:12 | NURSING ---
wound photo: right lateral lower leg
--- NOTE | 2017-12-28 13:13 | NURSING ---
wound photo: right medial lower leg
--- NOTE | 2017-12-28 13:13 | NURSING ---
wound photo: left lower leg
[2017-12-28 14:12] VITALS: BP 123/72; PULSE 68; RESP 20; TEMP 36.7; O2SAT 100
[2017-12-28] MEDS: Cefazolin 2 GM in 0.9% Normal Saline 100 ML IV ×2 (14:12→23:25)
--- NOTE | 2017-12-28 14:41 | PN_ITS ---
<Romy Ortiz - Last Filed: 12/28/17 14:41> Patient Problems: Active and Suspected Problems Cellulitis of both lower extremities (Acute) Subjective: Patient seen and examined. Denies fever, chills. Denies pain. Denies other current complaints. - Physical Exam General: Alert, Oriented x3, Cooperative HEENT: Atraumatic, PERRLA, EOMI, Normocephalic Neck: Supple, No JVD, Negative Carotid Bruits Lungs: Clear to auscultation, Normal air movement Cardiovascular: Regular rate, Regular Rhythm, Normal S1, Normal S2, No murmurs Abdomen: Bowel Sounds Present, Soft, Non Tender, Non-Distended Extremities: No clubbing, No cyanosis, No edema, Capillary Refill Less than 3 Seconds Skin: - - Bilateral lower extremity dressings clean dry and intact. Musculoskeletal: No Tenderness to Palpation of Joints or Extremities Neurological: Cranial nerves II-XII grossly intact Psych/Mental Status: Normal Affect, Appropriate Vital Signs Temp Pulse Resp BP Pulse Ox 98.1 F 68 20 H 123/72 H 100 12/28/17 14:12 12/28/17 14:12 12/28/17 14:12 12/28/17 14:12 12/28/17 14:12 Oxygen Delivery Method Room Air Weight: 238 lb Body Mass Index (BMI) 35.1 Intake and Output for Last 24 Hours 12/26/17 12/27/17 12/28/17 23:59 23:59 23:59 Intake Total 2361 / 2361 Output Total 775 / 775 Balance 1586 / 1586 Microbiology Past 72 Hours 12/28/17 07:45 Gram Stain - Final Wound - Leg, Right Laboratory Tests Past 24 Hrs 12/27/17 12/28/17 21:15 07:45 Hemoglobin A1c 6.4 H S.aureus Protein A PCR POSITIVE H MRSA (PCR) Negative Medical Necessity - Tobacco Use Smoking Status: Never smoker Assessment/Plan All Active Problems Ulcer of right calf (Resolved) Cellulitis of both lower extremities (Acute) Ulcer of left lower leg (Resolved) Constipation (Acute) Abdominal pain (Acute) Left leg cellulitis (Resolved) Sepsis (Acute) 1. Bilateral lower extremity cellulitis-failed outpatient antibiotic therapy with cephalexin and doxycycline. Previous lower extremity wound culture is positive for staph aureus. Bilateral lower extremity duplex ultrasound pending. Continue IV cefazolin. MRSA PCR negative. IV vancomycin discontinued. S. aureus protein positive. Blood cultures pending. Wound culture shows no growth. Wound RN consult. Keep bilateral lower extremities wrapped with Bao wraps. Dressing changes per order. 2. Hypertension-stable, continue home lisinopril regimen. 3. MRDD DVT prophylaxis-Lovenox subcu. Discharge planning: Anticipate discharge home tomorrow. This patient was seen by WILVER Weeks under the supervision of Dr. Grant. <Mari Grant E - Last Filed: 12/28/17 15:04> - Physical Exam Vital Signs Temp Pulse Resp BP Pulse Ox 98.1 F 68 20 H 123/72 H 100 12/28/17 14:12 12/28/17 14:12 12/28/17 14:12 12/28/17 14:12 12/28/17 14:12 Oxygen Delivery Method Room Air Weight: 238 lb Body Mass Index (BMI) 35.1 Intake and Output for Last 24 Hours 12/26/17 12/27/17 12/28/17 23:59 23:59 23:59 Intake Total 2361 / 2361 Output Total 775 / 775 Balance 1586 / 1586 Microbiology Past 72 Hours 12/28/17 07:45 Gram Stain - Final Wound - Leg, Right Laboratory Tests Past 24 Hrs 12/27/17 12/28/17 21:15 07:45 Hemoglobin A1c 6.4 H S.aureus Protein A PCR POSITIVE H MRSA (PCR) Negative Assessment/Plan Hospitalist note: I am seeing this patient in conjunction with Romy Ortiz. I independently seen and examined the patient. Progress note above, laboratory data and imaging studies reviewed and I agree uncomfortable with treatment plan. Patient seen and examined. He denies any significant complaints. His both legs are wrapped. He denies fever or chills. Patient has been on Keflex and doxycycline around 5 days before admission without improvement. His vital signs are stable. - Physical Exam General: Alert, Oriented x3, Cooperative, No apparent distress. HEENT: Atraumatic, PERRLA, EOMI. Neck: Supple, No JVD, Negative Carotid Bruits, Trachea Midline, Thyroid Normal. Lungs: Clear to auscultation, Normal air movement, No rhonchi, No wheeze, No rales. Cardiovascular: Regular rate, Regular Rhythm, Normal S1, Normal S2, PMI Normal. Abdomen: Bowel Sounds Present, Soft, Non Tender, Non-Distended, No Hepato- splenomegaly. Extremities: No clubbing, No cyanosis, No edema Skin: No rashes, No breakdown Neurological: Neuro grossly intact Vital Signs are stable. Assessment and plan: #1 acute bilateral lower extremity cellulitis: With failure of outpatient therapy with Keflex and doxycycline. Staph aureus screen was positive for MRSA screen was negative. He is on IV cefazolin. Vital signs are stable, afebrile. He does have leukocytosis, otherwise routine blood work was unremarkable. Blood wound cultures are pending. Wound care nurse consult. Plan to continue same treatment, repeat CBC tomorrow morning. #2 other chronic medical problems: Stable, continue current medications as above. This note was generated with [employer] software. It may contain incorrect words, spelling, and punctuation that were not noted in checking the note before signing. Code Visit Inpatient E&M: 88457 Subs Hosp L2
--- NOTE | 2017-12-28 15:57 | CASEMGMT ---
GLADIS WILLSON Face to Face with patient for initial transition planning/care coordination assessment. GLADIS WILLSON introduced self and role at [facility]. Patient sitting in chair, alert and oriented, history of MRDD. Patient willing to participate in assessment and is able to answer some questions appropriately. Care providers, pharmacy, and demographics verified. See link attached. Patient wishes to discharge home where he lives with his father. Patient states he has no further needs or concerns at this time. CM to follow for discharge planning needs that may arise. Disposition Plan: Patient to discharge home with father and follow-up plans in place. Will monitor and discuss with father need for HHC.
--- NOTE | 2017-12-28 15:59 | CHAPLAIN ---
Type of Pastoral Visit _x__ Initial Visit ___ Follow-up Visit ___ On-call Visit ___ General Patient Visit ___ Spiritual Assessment ___ Family Conference ___ Bereavement ___ Rapid Response ___ Code Blue ___ Other (describe below) Pastoral Care Referral From _x__ Patient ___ Family ___ Nurse ___ Physician ___ Certified Tumor Registrar ___ Retort Forker ___ Other (describe below) Sacrament/Intervention _x__ Active listening ___ Anointing ___ Confucianist ___ Bereavement ___ Communion _x__ Breana exploration ___ ___ Life review ___ Prayer ___ Reconciliation ___ Sacrament of Sick ___ Supportive presence ___ Wedding ___ Other (describe below) Pastoral Comments patient would like to have Father Dhruv come to give him communion; notified registration that pt should be listed as [employer] so he will receive communion while he is here
[2017-12-28 20:15] VITALS: BP 124/80; PULSE 64; RESP 18; TEMP 36.5; O2SAT 98
[2017-12-28] MEDS: 0.9% NaCl Peripheral Flush Adult/Peds IV (23:32)
[2017-12-29 02:15] VITALS: BP 126/72; PULSE 75; RESP 16; TEMP 36.6; O2SAT 95
[2017-12-29] MEDS: Cefazolin 2 GM in 0.9% Normal Saline 100 ML IV (06:45)
[2017-12-29 08:15] VITALS: BP 119/68; PULSE 81; RESP 16; TEMP 36.5; O2SAT 98
[2017-12-29] MEDS: Lisinopril 10 MG Tablet PO (09:55)
--- NOTE | 2017-12-29 10:29 | PCM.DC ---
- Discharge Diagnoses Current Active Problems: Current Active and Chronic Problems Cellulitis of both lower extremities (Acute) You will use the following diet at home:: Calorie/Carbohydrate Controlled (specify 1200, 1400, etc) Discharge Activity: Return to Normal Activity Call your doctor if you observe: Fever of 101 or Higher, Shortness of breath, Dizziness, Fainting spells, Chest pain, Calf discomfort Additional Instructions: You will need to clean both lower extremities daily and apply dry dressings and Bao wraps. Follow up with wound clinic. Your hemoglobin A1c which is used to test for diabetes was mildly elevated. Recommend carb control diet and follow-up with primary care physician to further evaluate this. Allergies/Adverse Reactions: Allergies No Known Allergies Allergy (Verified 06/20/17 13:34) Medications to take at Discharge Lisinopril [Zestril] 10 mg PO DAILY 12/15/16 Mupirocin [Bactroban] 1 applic TOPICAL TID 12/27/17 Amox/Clavulanate Tablet [Augmentin Tablet] 875 mg PO Q12H #20 tab 12/29/17 The following prescriptions were given: Amox/Clavulanate Tablet [Augmentin Tablet] 875 mg PO Q12H #20 tab Primary Care Physician: Wilfredo Knutson MD [Primary Care Provider] - Please follow up with your Primary Care Physician in: 1 Week Test Results: Test results from this visit will be discussed in further detail at your follow-up appointment, if applicable. Please Follow Up With: Wound Center When: As scheduled, 12/31/2017 Proposed Discharge Date: 12/29/17
--- NOTE | 2017-12-29 10:33 | DCINST_ITS ---
- Discharge Diagnoses Current Active Problems: Current Active and Chronic Problems Cellulitis of both lower extremities (Acute) You will use the following diet at home:: Calorie/Carbohydrate Controlled ( specify 1200, 1400, etc) Discharge Activity: Return to Normal Activity Call your doctor if you observe: Fever of 101 or Higher, Shortness of breath, Dizziness, Fainting spells, Chest pain, Calf discomfort Additional Instructions: You will need to clean both lower extremities daily and apply dry dressings and Bao wraps. Follow up with wound clinic. Your hemoglobin A1c which is used to test for diabetes was mildly elevated. Recommend carb control diet and follow-up with primary care physician to further evaluate this. Allergies/Adverse Reactions: Allergies No Known Allergies Allergy (Verified 06/20/17 13:34) Medications to take at Discharge Lisinopril [Zestril] 10 mg PO DAILY 12/15/16 Mupirocin [Bactroban] 1 applic TOPICAL TID 12/27/17 Amox/Clavulanate Tablet [Augmentin Tablet] 875 mg PO Q12H #20 tab 12/29/17 The following prescriptions were given: Amox/Clavulanate Tablet [Augmentin Tablet] 875 mg PO Q12H #20 tab Primary Care Physician: Wilfredo Knutson MD [Primary Care Provider] - Please follow up with your Primary Care Physician in: 1 Week Test Results: Test results from this visit will be discussed in further detail at your follow- up appointment, if applicable. Please Follow Up With: Wound Center When: As scheduled, 12/31/2017 Proposed Discharge Date: 12/29/17
--- NOTE | 2017-12-29 10:34 | PCM.DC.SUM ---
<Romy Ortiz - Last Filed: 12/29/17 10:48> Discharge Date and Diagnosis Date of Admission: 12/27/17 Date of Discharge: 12/29/17 - Primary Discharge Diagnosis Active and Suspected Problems 1. Acute bilateral lower extremity cellulitis with associated ulcerations due to trauma from patient picking, failed outpatient antibiotic therapy-limited to breakdown of skin. 2. Elevated hemoglobin A1c - Secondary Discharge Diagnosis Chronic Problems Noncompliance (Chronic) Leg swelling (Chronic) Edema of both legs (Chronic) Mental deficiency (Chronic) HTN (hypertension) (Chronic) Hospital Course and Treatment Consultations 12/27/17 20:12 Consult: Onc/Wound/industrial sociologist Routine Comment: Operations: None Procedures: None Summary of Care Provided: 1. Acute bilateral lower extremity cellulitis with associated ulcerations due to trauma from patient picking, failed outpatient antibiotic therapy with cephalexin and doxycycline-limited to breakdown of skin. Previous lower extremity wound culture is positive for staph aureus. Bilateral lower extremity duplex ultrasound negative for DVT. MRSA PCR negative. S. aureus protein positive. Blood cultures pending. Wound culture shows no growth. Patient will continue daily dressing changes at discharge. Follow-up with wound center on 12/31/2017. Patient will be discharged on Augmentin 875 mg twice daily for 10 days. Instructed patient on the importance of keeping legs wrapped and not picking ulcerations. Patient will be discharged with home health services. 2. Hypertension-stable, continue home lisinopril regimen. 3. MRDD, appears highly functioning, unknown severity. 4. Elevated hemoglobin [id number] A1c 6.4%. Recommend carb control diet and repeat hemoglobin A1c by primary care physician. Patient may require oral agent to further reduce A1c. Continue follow-up with primary care physician. General: Alert, Oriented x3, Cooperative HEENT: Atraumatic, PERRLA, EOMI, Normocephalic Neck: Supple, No JVD, Negative Carotid Bruits Lungs: Clear to auscultation, Normal air movement Cardiovascular: Regular rate, Regular Rhythm, Normal S1, Normal S2, No murmurs Abdomen: Bowel Sounds Present, Soft, Non Tender, Non-Distended Extremities: No clubbing, No cyanosis, No edema, Capillary Refill Less than 3 Seconds Skin: - - Bilateral lower extremity dressings clean dry and intact. Musculoskeletal: No Tenderness to Palpation of Joints or Extremities Neurological: Cranial nerves II-XII grossly intact Psych/Mental Status: Normal Affect, Appropriate Patient seen exam prior to discharge. Physical assessment as noted above. Patient stable for discharge home with further oral antibiotic therapy and follow-up with wound care and primary care physician. This patient was seen by WILVER Weeks under the supervision of Dr. Grant. Discharge Diet: Carb Control Diet Discharge Activity: Return to Normal Activity Call your doctor if you observe: Fever of 101 or Higher, Shortness of breath, Dizziness, Fainting spells, Chest pain, Calf discomfort Home Medications: Medications to take at Discharge Lisinopril [Zestril] 10 mg PO DAILY 12/15/16 Mupirocin [Bactroban] 1 applic TOPICAL TID 12/27/17 Amox/Clavulanate Tablet [Augmentin Tablet] 875 mg PO Q12H #20 tab 12/29/17 Following Prescrptions Were Given to Patient: Amox/Clavulanate Tablet [Augmentin Tablet] 875 mg PO Q12H #20 tab Primary Care Physician: Wilfredo Knutson MD [Primary Care Provider] - Please follow up with your Primary Care Physician in: 1 Week Please Follow Up With: Wound Center When: As scheduled, 12/31/2017 Disposition: Home with Home Health Minutes spent on discharge:: 35 Patient Condition:: Stable Medical Necessity - Tobacco Use Smoking Status: Never smoker Meaningful Use Info Meaningful Use Diagnoses (Choose all that apply): None applicable <Mari Grant E - Last Filed: 12/29/17 13:31> Discharge Date and Diagnosis - Secondary Discharge Diagnosis Chronic Problems Noncompliance (Chronic) Leg swelling (Chronic) Edema of both legs (Chronic) Mental deficiency (Chronic) HTN (hypertension) (Chronic) Hospital Course and Treatment Consultations 12/27/17 20:12 Consult: Onc/Wound/industrial sociologist Routine Comment: Summary of Care Provided: Hospitalist note: Discharge summary above reviewed as well as physical examination and I agree with above discharge and treatment plan. He was admitted because of redness and swelling of both lower extremities and patient has been picking his skin and he failed outpatient therapy with Keflex and doxycycline. He was found to have acute bilateral lower extremity cellulitis. He was treated with IV cefazolin. His vital signs are stable throughout admission and there was no evidence of sepsis or sepsis. Blood cultures with no growth up to the time of discharge. Wound culture revealed no organism. With IV antibiotic therapy, erythema and swelling of both legs improved. Wound care nurse consulted and appropriate dressing for the both legs was performed. Today, the wound care nurse mentioned that the wounds of both legs are significantly improved. Patient discharged home home health in stable condition, discharged on Augmentin twice daily for 10 days of treatment, recommended follow-up with PCP in 1 week and follow-up with wound care center regarding his leg wounds. - Physical Exam General: Alert, Oriented x3, Cooperative, No apparent distress. HEENT: Atraumatic, PERRLA, EOMI. Neck: Supple, No JVD, Negative Carotid Bruits, Trachea Midline, Thyroid Normal. Lungs: Clear to auscultation, Normal air movement, No rhonchi, No wheeze, No rales. Cardiovascular: Regular rate, Regular Rhythm, Normal S1, Normal S2, PMI Normal. Abdomen: Bowel Sounds Present, Soft, Non Tender, Non-Distended, No Hepato-splenomegaly. Extremities: No clubbing, No cyanosis, No edema Skin: No rashes, superficial small ulcerations on both legs. Neurological: Neuro grossly intact Vital Signs are stable. This note was generated with [employer] dictation software. It may contain incorrect words, spelling, and punctuation that were not noted in checking the note before signing. Minutes spent on discharge:: 25 Patient Condition:: Stable Meaningful Use Info Meaningful Use Diagnoses (Choose all that apply): None applicable Code Visit Inpatient E&M: 89278 Disch Hosp
--- NOTE | 2017-12-29 10:36 | CASEMGMT ---
GLADIS WILLSON updated by Massimo Ortiz NP that patient will need HHC at discharge and follow-up in wound center. GLADIS WILLSON called patient's father to discuss discharge needs. Father agreeable to [facility] and would like [facility]. Referral made to [facility]. GLADIS WILLSON call wound center and patient already has appt scheduled with wound center for Sunday 12/31 at 10am. CM will continue to follow this patient and plan for a safe discharge.
[2017-12-29 14:15] VITALS: BP 121/77; PULSE 76; RESP 18; TEMP 36.5; O2SAT 99
== END 2017-12-29 14:30 | disposition home or self-care (01) | DRG 603 ==
LOC: ED 18:02 → MS3 19:23
PROVIDERS: Admitting Provider Student in an Organized Health Care Education/Training Program; Emergency Provider Emergency Medicine; Family Provider Family Medicine; PCP Family Medicine; Visit Provider Hospitalist
DX: L03.116 Cellulitis of left lower limb (principal); L97.821 Non-pressure chronic ulcer of other part of left lower leg limited to breakdown of skin; L97.811 Non-pressure chronic ulcer of other part of right lower leg limited to breakdown of skin; L03.115 Cellulitis of right lower limb; B95.61 Methicillin susceptible Staphylococcus aureus infection as the cause of diseases classified elsewhere; D72.829 Elevated white blood cell count, unspecified; R79.9 Abnormal finding of blood chemistry, unspecified; I10 Essential (primary) hypertension; F79 Unspecified intellectual disabilities; Z86.14 Personal history of Methicillin resistant Staphylococcus aureus infection; Z79.899 Other long term (current) drug therapy
CPT/HCPCS: 36415; 80048; 83036; 83605; 85025; 87040; 87070; 87205; 87640; 93970; 97802; 99284; J7030; J7040; A4216; J0295; J2405

== ENCOUNTER 2017-12-31 14:41 | Outpatient (RCR) | payer MEDICARE, SELFPAY ==
[2017-12-31 14:49] VITALS: BP 108/41; PULSE 93; RESP 20; TEMP 36.2
--- NOTE | 2017-12-31 17:23 | PCM.WC.HP ---
(1) Ulcer of right lower extremity with fat layer exposed Status: Chronic Current Visit: Yes Code(s): L97.912 - Non-pressure chronic ulcer of unspecified part of right lower leg with fat layer exposed (2) Edema of both legs Status: Chronic Current Visit: Yes Code(s): R60.0 - Localized edema (3) Cellulitis of both lower extremities Status: Chronic Current Visit: Yes Code(s): L03.115 - Cellulitis of right lower limb; L03.116 - Cellulitis of left lower limb (4) Ulcer of left lower leg Status: Resolved Current Visit: Yes Qualifiers: Non-pressure ulcer stage: with fat layer exposed Code(s): L97.929 - Non-pressure chronic ulcer of unspecified part of left lower leg with unspecified severity (5) Mental deficiency Status: Chronic Current Visit: Yes Code(s): F79 - Unspecified intellectual disabilities (6) Venous insufficiency of both lower extremities Status: Chronic Current Visit: Yes Code(s): I87.2 - Venous insufficiency (chronic) (peripheral) History of Present Illness Date of Service: 12/31/17 Chief Complaint: Ulceration of the right lateral LE and medial LE and cluster of ulcerations of the left distal lower extremity; bilateral lower extremity swelling and edema; resolving cellulitis of b/l LE History of Wound: This is a developmentally disabled 57-year-old male who presented with ulcerations of both lower extremities. These have been present for several weeks but have gotten worse in the las week. He was recently in the hospital and given IV antibiotics for treatment of his cellulitis. The patient is a former patient at the [facility], treated for similar problems in the past. The patient sleeps in a recliner, and spends long hours each day and a sitting position. He has been advised to elevate his lower extremities to heart level, or higher. However, he is noncompliant, and resolutely refuses to do so. He lives with his father, who confirms his son's noncompliance, and indicates his inability to convince his son into applying with recommended measures. He is seen here with his sister today. Patient has failed to elevate his lower extremities, spends long hours each day in a sitting position, and has not been wearing his compression stockings, as formerly recommended. He presented with bilateral lower extremity swelling and edema, bilateral lower extremity ulcerations, and cellulitis of both LE. The patient spends most of his day sitting around, watching TV. The patient is communicative, but is obviously developmentally disabled and with a diminished IQ. The patient has undergone a venous duplex examination 12/29/17 which is completely normal. There is no evidence of superficial venous incompetence or DVT. The patient's noninvasive lower extremity arterial study completed in March 2017 is also normal, with triphasic waveforms at ankle level bilaterally, and normal anklebrachial indices bilaterally. His sister reports that he has not been showering and wears his clothes for weeks without changing them. He has been using silvadene to his wounds. Home Health has been consulted to assist in dressing changes. Past Medical History Past Medical History: Chronic Problems Ulcer of right lower extremity with fat layer exposed (Chronic) Venous insufficiency of both lower extremities (Chronic) Noncompliance (Chronic) Leg swelling (Chronic) Edema of both legs (Chronic) Cellulitis of both lower extremities (Chronic) Mental deficiency (Chronic) HTN (hypertension) (Chronic) Surgical History: tonsillectomy Allergies/Adverse Reactions: Allergies No Known Allergies Allergy (Verified 12/31/17 15:21) Home Medications: Ambulatory Orders Medication Instructions Recorded Lisinopril [Zestril] 10 mg PO DAILY 12/15/16 Mupirocin [Bactroban] 1 applic TOPICAL TID 12/27/17 Amox/Clavulanate Tablet [Augmentin 875 mg PO Q12H #20 tab 12/29/17 Tablet] - Family History Paternal - - No heart disease. Patient's father is alive, aged 90, and healthy. Maternal Diabetes, - - History of cardiac disease Lives: With Family Smoking Status: Never smoker Tobacco Use: Non-smoker Alcohol: None Drugs: None Review of Systems Constitutional: Denies: Chills, Fever, Weight Change Eyes: Denies: Pain, Vision Change HEENT: Denies: Difficulty Hearing, Difficulty Swallowing, Sinus Congestion Cardiovascular: Denies: Chest Pain, Palpitations Respiratory: Denies: Cough, Shortness of Breath Gastrointestinal: Denies: Diarrhea, Nausea, Vomiting Genitourinary: Denies: Dysuria, Hematuria Musculoskeletal: Reports: Leg Pain Skin: Reports: Wounds Hematologic/ Lymphatic: Denies: Easy Bruising, Easy Bleeding - Physical Exam Vital Signs Temp Pulse Resp BP 97.1 F L 93 20 H 108/41 L 12/31/17 14:49 12/31/17 14:49 12/31/17 14:49 12/31/17 14:49 General: Alert, Oriented x3, Cooperative, No apparent distress HEENT: Atraumatic, Normocephalic Neck: Supple Lungs: Clear to auscultation Cardiovascular: Regular rate, Regular Rhythm Abdomen: Soft, Non Tender, Obese Extremities: Edema Skin: Ulcer/ Wound Wound Measurements and Assessment WC - Nurse 1 - General Ulcer Measurement Start: 12/31/17 14:49 Freq: Status: Active Protocol: Activity Type Activity Date Activity User E-Sign Co-Sign Detail Recorded Client Recorded Date Recorded By Document 12/31/17 14:49 DL [id number] 12/31/17 15:17 DL 12/31/17 14:49 Wound Center Nurse 1 [Ulcer Assessment] #9 LLE araujo cluster -Current Size (cm) - Length 10 -Current Size (cm) - Width 2 -Current Size (cm) - Depth 0.1 -Total Square Cm 20 -Photo Taken Yes -Classification - Thickness Partial Thickness -Exudate Amt None Present (0 %) -Wound Margin Flat & Intact -Granulation Amt Small (1-33%) -Granulation Quality [place] -Necrosis Amt Small (1-33%) -Necrotic Tissue Type Adherent Slough -Structure Exposed N/A -Texture (Kathleen-wound Skin Appearance) Localized Edema Scarring -Moisture (Kathleen-wound Skin Appearance Dry/Scaly ) -Color (Kathleen-wound Skin Appearance) Erythema Rubor -Tenderness on Palpation (Kathleen-wound Yes Skin Appearance) -Ulcer Cleansing Wound Cleanser -Foul Odor after Cleansing No -Anesthetic Used 4% Lidocaine Solution #8 RLE Lat Cluster -Current Size (cm) - Length 6 -Current Size (cm) - Width 3.6 -Current Size (cm) - Depth 0.1 -Total Square Cm 21.6 -Photo Taken Yes -Classification - Thickness Partial Thickness -Wound Margin Flat & Intact -Granulation Amt Large (67-100%) -Granulation Quality [place] -Necrosis Amt None Present (0 %) -Structure Exposed N/A -Texture (Kathleen-wound Skin Appearance) Localized Edema Scarring -Moisture (Kathleen-wound Skin Appearance No Abnormality ) -Color (Kathleen-wound Skin Appearance) Erythema Rubor #7 R Med LE -Current Size (cm) - Length 1.1 -Current Size (cm) - Width 0.7 -Current Size (cm) - Depth 0.1 -Total Square Cm 0.77 -Photo Taken Yes -Classification - Thickness Partial Thickness -Exudate Amt None Present (0 %) -Wound Margin Flat & Intact -Granulation Amt Large (67-100%) -Granulation Quality [place] -Necrosis Amt None Present (0 %) -Structure Exposed N/A -Texture (Kathleen-wound Skin Appearance) No Abnormality Localized Edema -Moisture (Kathleen-wound Skin Appearance Dry/Scaly ) -Color (Kathleen-wound Skin Appearance) Erythema Rubor -Temperature (Kathleen-wound Skin No Abnormality Appearance) (Pt Warm) -Tenderness on Palpation (Kathleen-wound No Skin Appearance) -Ulcer Cleansing Wound Cleanser [Edema Assessment] -Right Calf (cm) 43 -Right Ankle (cm) 23.5 -Left Calf (cm) 40.5 -Left Ankle (cm) 22.2 WC - Nurse 2 - General Ulcer CM Notes Start: 12/31/17 14:49 Freq: Status: Active Protocol: Activity Type Activity Date Activity User E-Sign Co-Sign Detail Recorded Client Recorded Date Recorded By Document 12/31/17 16:24 [id number] 12/31/17 16:31 12/31/17 16:24 Wound Center Nurse 2 [Procedure/Treatment] #9 LLE araujo cluster -Time 16:27 -Correct Patient Yes -Correct Side, Site, Position Yes -Correct Procedure Yes -Procedure Performed Yes -Type of Procedure Debridement -Clinical Debridement Subcutaneous -Post Debridement Size (cm) - Length 10.1 -Post Debridement Size (cm) - Width 2.1 -Post Debridement Size (cm) - Depth 0.1 -Total Square Cm 21.21 -Wound/Ulcer Outcome Not Healed -Ulcer Cleansing Rinsed/ Irrigated with Saline -Foul Odor after Cleansing No -Bioengineered Tissue No -Topical Lidocaine (%) 4 -Bleeding Controlled with Pressure -Treatment Response Procedure Tolerated Well #8 RLE Lat Cluster -Time 16:27 -Correct Patient Yes -Correct Side, Site, Position Yes -Correct Procedure Yes -Procedure Performed Yes -Type of Procedure Debridement -Clinical Debridement Subcutaneous -Post Debridement Size (cm) - Length 6.9 -Post Debridement Size (cm) - Width 3.8 -Post Debridement Size (cm) - Depth 0.1 -Total Square Cm 26.22 -Wound/Ulcer Outcome Not Healed -Ulcer Cleansing Rinsed/ Irrigated with Saline -Foul Odor after Cleansing No -Bioengineered Tissue No -Topical Lidocaine (%) 4 -Bleeding Controlled with Pressure -Treatment Response Procedure Tolerated Well #7 R Med LE -Time 16:28 -Correct Patient Yes -Correct Side, Site, Position Yes -Correct Procedure Yes -Procedure Performed Yes -Type of Procedure Debridement -Clinical Debridement Subcutaneous -Post Debridement Size (cm) - Length 3.0 -Post Debridement Size (cm) - Width 1.0 -Post Debridement Size (cm) - Depth 0.1 -Total Square Cm 3.00 -Wound/Ulcer Outcome Not Healed -Ulcer Cleansing Rinsed/ Irrigated with Saline -Foul Odor after Cleansing No -Bioengineered Tissue No -Topical Lidocaine (%) 4 -Bleeding Controlled with Pressure -Treatment Response Procedure Tolerated Well [See Physician Procedure note for Specifics] Pain Scale: 0-10 Numeric [Pain] -Is Patient Pain Free? Yes Psych/Mental Status: Normal Affect, Appropriate Debridement Note Post-Debridement Measurements/Treatment WC - Nurse 2 - General Ulcer CM Notes Start: 12/31/17 14:49 Freq: Status: Active Protocol: Activity Type Activity Date Activity User E-Sign Co-Sign Detail Recorded Client Recorded Date Recorded By Document 12/31/17 16:24 [id number] 12/31/17 16:31 12/31/17 16:24 Wound Center Nurse 2 #9 ZACH araujo cluster -Time 16:27 -Correct Patient Yes -Correct Side, Site, Position Yes -Correct Procedure Yes -Procedure Performed Yes -Type of Procedure Debridement -Clinical Debridement Subcutaneous -Post Debridement Size (cm) - Length 10.1 -Post Debridement Size (cm) - Width 2.1 -Post Debridement Size (cm) - Depth 0.1 -Total Square Cm 21.21 -Wound/Ulcer Outcome Not Healed -Ulcer Cleansing Rinsed/ Irrigated with Saline -Foul Odor after Cleansing No -Bioengineered Tissue No -Topical Lidocaine (%) 4 -Bleeding Controlled with Pressure -Treatment Response Procedure Tolerated Well #8 RLE Lat Cluster -Time 16:27 -Correct Patient Yes -Correct Side, Site, Position Yes -Correct Procedure Yes -Procedure Performed Yes -Type of Procedure Debridement -Clinical Debridement Subcutaneous -Post Debridement Size (cm) - Length 6.9 -Post Debridement Size (cm) - Width 3.8 -Post Debridement Size (cm) - Depth 0.1 -Total Square Cm 26.22 -Wound/Ulcer Outcome Not Healed -Ulcer Cleansing Rinsed/ Irrigated with Saline -Foul Odor after Cleansing No -Bioengineered Tissue No -Topical Lidocaine (%) 4 -Bleeding Controlled with Pressure -Treatment Response Procedure Tolerated Well #7 R Med LE -Time 16:28 -Correct Patient Yes -Correct Side, Site, Position Yes -Correct Procedure Yes -Procedure Performed Yes -Type of Procedure Debridement -Clinical Debridement Subcutaneous -Post Debridement Size (cm) - Length 3.0 -Post Debridement Size (cm) - Width 1.0 -Post Debridement Size (cm) - Depth 0.1 -Total Square Cm 3.00 -Wound/Ulcer Outcome Not Healed -Ulcer Cleansing Rinsed/ Irrigated with Saline -Foul Odor after Cleansing No -Bioengineered Tissue No -Topical Lidocaine (%) 4 -Bleeding Controlled with Pressure -Treatment Response Procedure Tolerated Well Pain Scale: 0-10 Numeric Is Patient Pain Free? Yes Wound debrided: LLE araujo cluster Laterality: Left Type of Debridement: Excisional debridement Anesthesia Used: 4% Lidocaine Solution Depth: Down to and including healthy tissue, in the subcutaneous layer Percentage of wound debrided: 100 Instrument Used: 5mm curette Tissue Removed: yellow slough, devitalized tissue Severity: Fat Layer Exposed Amount of bleeding with debridement: Mild Bleeding Controlled with: Compression and gauze Patient tolerated procedure well - Additional Wound Wound debrided: RLE lateral cluster Laterality: Right Type of Debridement: Excisional debridement Anesthesia Used: 5% Lidocaine Gel Depth: Down to and including healthy tissue, in the subcutaneous layer Percentage of wound debrided: 100 Instrument Used: 5mm curette Tissue Removed: yellow slough, devitalized tissue Severity: Fat Layer Exposed Amount of bleeding with debridement: Mild Bleeding Controlled with: Compression and gauze Patient tolerated procedure: Patient tolerated procedure well - Additional Wound Wound debrided: right medial LE cluster Laterality: Right Type of Debridement: Excisional debridement Anesthesia Used: 5% Lidocaine Gel Depth: Down to and including healthy tissue, in the subcutaneous layer Percentage of wound debrided: 100 Instrument Used: 5mm curette Tissue Removed: yellow slough, devitalized tissue Severity: Fat Layer Exposed Amount of bleeding with debridement: Mild Bleeding Controlled with: Compression and gauze Patient tolerated procedure: Patient tolerated procedure well Assessment/Plan Active Problems Ulcer of right lower extremity with fat layer exposed (Chronic) Venous insufficiency of both lower extremities (Chronic) Edema of both legs (Chronic) Cellulitis of both lower extremities (Chronic) Mental deficiency (Chronic) Assessment: This is a 57-year-old developmentally/intellectually disabled male who presents with venous ulcers of his b/l LE. Plan: Josias's wounds have been evaluated and debrided. Will dress his wounds with Aquacel Extra and have him wear double layer tubigrips. He has been instructed to elevate his lower extremities as much as possible, even during daytime hours. Advised him to shower and change his clothing on a more frequent basis. Activity has been encouraged. Patient has been advised to elevate his lower extremities to heart level as much as possible. He has been advised to refrain from prolonged idle sitting. Despite these recommendations, the patient is poorly compliant, and his cognitive disability appears to be an impediment to his compliance with recommended measures. F/U in 1 week.
--- NOTE | 2017-12-31 17:30 | HP.PCM_ITS ---
(1) Ulcer of right lower extremity with fat layer exposed Status: Chronic Current Visit: Yes Code(s): L97.912 - Non-pressure chronic ulcer of unspecified part of right lower leg with fat layer exposed (2) Edema of both legs Status: Chronic Current Visit: Yes Code(s): R60.0 - Localized edema (3) Cellulitis of both lower extremities Status: Chronic Current Visit: Yes Code(s): L03.115 - Cellulitis of right lower limb; L03.116 - Cellulitis of left lower limb (4) Ulcer of left lower leg Status: Resolved Current Visit: Yes Qualifiers: Non-pressure ulcer stage: with fat layer exposed Code(s): L97.929 - Non-pressure chronic ulcer of unspecified part of left lower leg with unspecified severity (5) Mental deficiency Status: Chronic Current Visit: Yes Code(s): F79 - Unspecified intellectual disabilities (6) Venous insufficiency of both lower extremities Status: Chronic Current Visit: Yes Code(s): I87.2 - Venous insufficiency ( chronic) (peripheral) History of Present Illness Date of Service: 12/31/17 Chief Complaint: Ulceration of the right lateral LE and medial LE and cluster of ulcerations of the left distal lower extremity; bilateral lower extremity swelling and edema; resolving cellulitis of b/l LE History of Wound: This is a developmentally disabled 57-year-old male who presented with ulcerations of both lower extremities. These have been present for several weeks but have gotten worse in the las week. He was recently in the hospital and given IV antibiotics for treatment of his cellulitis. The patient is a former patient at the [facility], treated for similar problems in the past. The patient sleeps in a recliner, and spends long hours each day and a sitting position. He has been advised to elevate his lower extremities to heart level, or higher. However, he is noncompliant, and resolutely refuses to do so. He lives with his father, who confirms his son's noncompliance, and indicates his inability to convince his son into applying with recommended measures. He is seen here with his sister today. Patient has failed to elevate his lower extremities, spends long hours each day in a sitting position, and has not been wearing his compression stockings, as formerly recommended. He presented with bilateral lower extremity swelling and edema, bilateral lower extremity ulcerations, and cellulitis of both LE. The patient spends most of his day sitting around, watching TV. The patient is communicative, but is obviously developmentally disabled and with a diminished IQ. The patient has undergone a venous duplex examination 12/29/17 which is completely normal. There is no evidence of superficial venous incompetence or DVT. The patient's noninvasive lower extremity arterial study completed in March 2017 is also normal, with triphasic waveforms at ankle level bilaterally, and normal ankle?brachial indices bilaterally. His sister reports that he has not been showering and wears his clothes for weeks without changing them. He has been using silvadene to his wounds. Home Health has been consulted to assist in dressing changes. Past Medical History Past Medical History: Chronic Problems Ulcer of right lower extremity with fat layer exposed (Chronic) Venous insufficiency of both lower extremities (Chronic) Noncompliance (Chronic) Leg swelling (Chronic) Edema of both legs (Chronic) Cellulitis of both lower extremities (Chronic) Mental deficiency (Chronic) HTN (hypertension) (Chronic) Surgical History: tonsillectomy Allergies/Adverse Reactions: Allergies No Known Allergies Allergy (Verified 12/31/17 15:21) Home Medications: Ambulatory Orders Medication Instructions Recorded Lisinopril [Zestril] 10 mg PO DAILY 12/15/16 Mupirocin [Bactroban] 1 applic TOPICAL TID 12/27/17 Amox/Clavulanate Tablet [Augmentin 875 mg PO Q12H #20 tab 12/29/17 Tablet] - Family History Paternal - - No heart disease. Patient's father is alive, aged 90, and healthy. Maternal Diabetes, - - History of cardiac disease Lives: With Family Smoking Status: Never smoker Tobacco Use: Non-smoker Alcohol: None Drugs: None Review of Systems Constitutional: Denies: Chills, Fever, Weight Change Eyes: Denies: Pain, Vision Change HEENT: Denies: Difficulty Hearing, Difficulty Swallowing, Sinus Congestion Cardiovascular: Denies: Chest Pain, Palpitations Respiratory: Denies: Cough, Shortness of Breath Gastrointestinal: Denies: Diarrhea, Nausea, Vomiting Genitourinary: Denies: Dysuria, Hematuria Musculoskeletal: Reports: Leg Pain Skin: Reports: Wounds Hematologic/ Lymphatic: Denies: Easy Bruising, Easy Bleeding - Physical Exam Vital Signs Temp Pulse Resp BP 97.1 F L 93 20 H 108/41 L 12/31/17 14:49 12/31/17 14:49 12/31/17 14:49 12/31/17 14:49 General: Alert, Oriented x3, Cooperative, No apparent distress HEENT: Atraumatic, Normocephalic Neck: Supple Lungs: Clear to auscultation Cardiovascular: Regular rate, Regular Rhythm Abdomen: Soft, Non Tender, Obese Extremities: Edema Skin: Ulcer/ Wound Wound Measurements and Assessment WC - Nurse 1 - General Ulcer Measurement Start: 12/31/17 14:49 Freq: Status: Active Protocol: Activity Type Activity Date Activity User E-Sign Co-Sign Detail Recorded Client Recorded Date Recorded By Document 12/31/17 14:49 DL [id number] 12/31/17 15:17 DL 12/31/17 14:49 Wound Center Nurse 1 [Ulcer Assessment] #9 LLE araujo cluster -Current Size (cm) - Length 10 -Current Size (cm) - Width 2 -Current Size (cm) - Depth 0.1 -Total Square Cm 20 -Photo Taken Yes -Classification - Thickness Partial Thickness -Exudate Amt None Present (0 %) -Wound Margin Flat & Intact -Granulation Amt Small (1-33%) -Granulation Quality [place] -Necrosis Amt Small (1-33%) -Necrotic Tissue Type Adherent Slough -Structure Exposed N/A -Texture (Kathleen-wound Skin Appearance) Localized Edema Scarring -Moisture (Kathleen-wound Skin Appearance Dry/Scaly ) -Color (Kathleen-wound Skin Appearance) Erythema Rubor -Tenderness on Palpation (Kathleen-wound Yes Skin Appearance) -Ulcer Cleansing Wound Cleanser -Foul Odor after Cleansing No -Anesthetic Used 4% Lidocaine Solution #8 RLE Lat Cluster -Current Size (cm) - Length 6 -Current Size (cm) - Width 3.6 -Current Size (cm) - Depth 0.1 -Total Square Cm 21.6 -Photo Taken Yes -Classification - Thickness Partial Thickness -Wound Margin Flat & Intact -Granulation Amt Large (67-100%) -Granulation Quality [place] -Necrosis Amt None Present (0 %) -Structure Exposed N/A -Texture (Kathleen-wound Skin Appearance) Localized Edema Scarring -Moisture (Kathleen-wound Skin Appearance No Abnormality ) -Color (Kathleen-wound Skin Appearance) Erythema Rubor #7 R Med LE -Current Size (cm) - Length 1.1 -Current Size (cm) - Width 0.7 -Current Size (cm) - Depth 0.1 -Total Square Cm 0.77 -Photo Taken Yes -Classification - Thickness Partial Thickness -Exudate Amt None Present (0 %) -Wound Margin Flat & Intact -Granulation Amt Large (67-100%) -Granulation Quality [place] -Necrosis Amt None Present (0 %) -Structure Exposed N/A -Texture (Kathleen-wound Skin Appearance) No Abnormality Localized Edema -Moisture (Kathleen-wound Skin Appearance Dry/Scaly ) -Color (Kathleen-wound Skin Appearance) Erythema Rubor -Temperature (Kathleen-wound Skin No Abnormality Appearance) (Pt Warm) -Tenderness on Palpation (Kathleen-wound No Skin Appearance) -Ulcer Cleansing Wound Cleanser [Edema Assessment] -Right Calf (cm) 43 -Right Ankle (cm) 23.5 -Left Calf (cm) 40.5 -Left Ankle (cm) 22.2 WC - Nurse 2 - General Ulcer CM Notes Start: 12/31/17 14:49 Freq: Status: Active Protocol: Activity Type Activity Date Activity User E-Sign Co-Sign Detail Recorded Client Recorded Date Recorded By Document 12/31/17 16:24 [id number] 12/31/17 16:31 12/31/17 16:24 Wound Center Nurse 2 [Procedure/Treatment] #9 LLE araujo cluster -Time 16:27 -Correct Patient Yes -Correct Side, Site, Position Yes -Correct Procedure Yes -Procedure Performed Yes -Type of Procedure Debridement -Clinical Debridement Subcutaneous -Post Debridement Size (cm) - Length 10.1 -Post Debridement Size (cm) - Width 2.1 -Post Debridement Size (cm) - Depth 0.1 -Total Square Cm 21.21 -Wound/Ulcer Outcome Not Healed -Ulcer Cleansing Rinsed/ Irrigated with Saline -Foul Odor after Cleansing No -Bioengineered Tissue No -Topical Lidocaine (%) 4 -Bleeding Controlled with Pressure -Treatment Response Procedure Tolerated Well #8 RLE Lat Cluster -Time 16:27 -Correct Patient Yes -Correct Side, Site, Position Yes -Correct Procedure Yes -Procedure Performed Yes -Type of Procedure Debridement -Clinical Debridement Subcutaneous -Post Debridement Size (cm) - Length 6.9 -Post Debridement Size (cm) - Width 3.8 -Post Debridement Size (cm) - Depth 0.1 -Total Square Cm 26.22 -Wound/Ulcer Outcome Not Healed -Ulcer Cleansing Rinsed/ Irrigated with Saline -Foul Odor after Cleansing No -Bioengineered Tissue No -Topical Lidocaine (%) 4 -Bleeding Controlled with Pressure -Treatment Response Procedure Tolerated Well #7 R Med LE -Time 16:28 -Correct Patient Yes -Correct Side, Site, Position Yes -Correct Procedure Yes -Procedure Performed Yes -Type of Procedure Debridement -Clinical Debridement Subcutaneous -Post Debridement Size (cm) - Length 3.0 -Post Debridement Size (cm) - Width 1.0 -Post Debridement Size (cm) - Depth 0.1 -Total Square Cm 3.00 -Wound/Ulcer Outcome Not Healed -Ulcer Cleansing Rinsed/ Irrigated with Saline -Foul Odor after Cleansing No -Bioengineered Tissue No -Topical Lidocaine (%) 4 -Bleeding Controlled with Pressure -Treatment Response Procedure Tolerated Well [See Physician Procedure note for Specifics] Pain Scale: 0-10 Numeric [Pain] -Is Patient Pain Free? Yes Psych/Mental Status: Normal Affect, Appropriate Debridement Note Post-Debridement Measurements/Treatment WC - Nurse 2 - General Ulcer CM Notes Start: 12/31/17 14:49 Freq: Status: Active Protocol: Activity Type Activity Date Activity User E-Sign Co-Sign Detail Recorded Client Recorded Date Recorded By Document 12/31/17 16:24 [id number] 12/31/17 16:31 12/31/17 16:24 Wound Center Nurse 2 #9 LLCarlos araujo cluster -Time 16:27 -Correct Patient Yes -Correct Side, Site, Position Yes -Correct Procedure Yes -Procedure Performed Yes -Type of Procedure Debridement -Clinical Debridement Subcutaneous -Post Debridement Size (cm) - Length 10.1 -Post Debridement Size (cm) - Width 2.1 -Post Debridement Size (cm) - Depth 0.1 -Total Square Cm 21.21 -Wound/Ulcer Outcome Not Healed -Ulcer Cleansing Rinsed/ Irrigated with Saline -Foul Odor after Cleansing No -Bioengineered Tissue No -Topical Lidocaine (%) 4 -Bleeding Controlled with Pressure -Treatment Response Procedure Tolerated Well #8 RLE Lat Cluster -Time 16:27 -Correct Patient Yes -Correct Side, Site, Position Yes -Correct Procedure Yes -Procedure Performed Yes -Type of Procedure Debridement -Clinical Debridement Subcutaneous -Post Debridement Size (cm) - Length 6.9 -Post Debridement Size (cm) - Width 3.8 -Post Debridement Size (cm) - Depth 0.1 -Total Square Cm 26.22 -Wound/Ulcer Outcome Not Healed -Ulcer Cleansing Rinsed/ Irrigated with Saline -Foul Odor after Cleansing No -Bioengineered Tissue No -Topical Lidocaine (%) 4 -Bleeding Controlled with Pressure -Treatment Response Procedure Tolerated Well #7 R Med LE -Time 16:28 -Correct Patient Yes -Correct Side, Site, Position Yes -Correct Procedure Yes -Procedure Performed Yes -Type of Procedure Debridement -Clinical Debridement Subcutaneous -Post Debridement Size (cm) - Length 3.0 -Post Debridement Size (cm) - Width 1.0 -Post Debridement Size (cm) - Depth 0.1 -Total Square Cm 3.00 -Wound/Ulcer Outcome Not Healed -Ulcer Cleansing Rinsed/ Irrigated with Saline -Foul Odor after Cleansing No -Bioengineered Tissue No -Topical Lidocaine (%) 4 -Bleeding Controlled with Pressure -Treatment Response Procedure Tolerated Well Pain Scale: 0-10 Numeric Is Patient Pain Free? Yes Wound debrided: LLE araujo cluster Laterality: Left Type of Debridement: Excisional debridement Anesthesia Used: 4% Lidocaine Solution Depth: Down to and including healthy tissue, in the subcutaneous layer Percentage of wound debrided: 100 Instrument Used: 5mm curette Tissue Removed: yellow slough, devitalized tissue Severity: Fat Layer Exposed Amount of bleeding with debridement: Mild Bleeding Controlled with: Compression and gauze Patient tolerated procedure well - Additional Wound Wound debrided: RLE lateral cluster Laterality: Right Type of Debridement: Excisional debridement Anesthesia Used: 5% Lidocaine Gel Depth: Down to and including healthy tissue, in the subcutaneous layer Percentage of wound debrided: 100 Instrument Used: 5mm curette Tissue Removed: yellow slough, devitalized tissue Severity: Fat Layer Exposed Amount of bleeding with debridement: Mild Bleeding Controlled with: Compression and gauze Patient tolerated procedure: Patient tolerated procedure well - Additional Wound Wound debrided: right medial LE cluster Laterality: Right Type of Debridement: Excisional debridement Anesthesia Used: 5% Lidocaine Gel Depth: Down to and including healthy tissue, in the subcutaneous layer Percentage of wound debrided: 100 Instrument Used: 5mm curette Tissue Removed: yellow slough, devitalized tissue Severity: Fat Layer Exposed Amount of bleeding with debridement: Mild Bleeding Controlled with: Compression and gauze Patient tolerated procedure: Patient tolerated procedure well Assessment/Plan Active Problems Ulcer of right lower extremity with fat layer exposed (Chronic) Venous insufficiency of both lower extremities (Chronic) Edema of both legs (Chronic) Cellulitis of both lower extremities (Chronic) Mental deficiency (Chronic) Assessment: This is a 57-year-old developmentally/intellectually disabled male who presents with venous ulcers of his b/l LE. Plan: Josias's wounds have been evaluated and debrided. Will dress his wounds with Aquacel Extra and have him wear double layer tubigrips. He has been instructed to elevate his lower extremities as much as possible, even during daytime hours. Advised him to shower and change his clothing on a more frequent basis. Activity has been encouraged. Patient has been advised to elevate his lower extremities to heart level as much as possible. He has been advised to refrain from prolonged idle sitting. Despite these recommendations, the patient is poorly compliant, and his cognitive disability appears to be an impediment to his compliance with recommended measures. F/U in 1 week.
== END 2018-01-04 23:59 ==
LOC: WC 14:41
PROVIDERS: Family Provider Family Medicine; PCP Family Medicine; Visit Provider Family Medicine
DX: I87.2 Venous insufficiency (chronic) (peripheral) (principal); R60.0 Localized edema; Z91.19 Patient's noncompliance with other medical treatment and regimen; M79.89 Other specified soft tissue disorders; L97.822 Non-pressure chronic ulcer of other part of left lower leg with fat layer exposed; L97.812 Non-pressure chronic ulcer of other part of right lower leg with fat layer exposed; F79 Unspecified intellectual disabilities
CPT/HCPCS: 11042; 11045; 99213; G0463

== ENCOUNTER 2018-02-04 15:30 | Outpatient (RCR) | payer MEDICARE, SELFPAY ==
[2018-01-05 01:30] VITALS: BP 108/41; PULSE 93; RESP 20; TEMP 36.2
[2018-01-07 16:03] VITALS: BP 134/74; PULSE 74; RESP 18; TEMP 36.3
[2018-01-14 15:06] VITALS: BP 136/80; PULSE 57; RESP 18; TEMP 36
--- NOTE | 2018-01-14 18:05 | PN.PCM_ITS ---
(1) Ulcer of right lower extremity with fat layer exposed Status: Chronic Current Visit: Yes Code(s): L97.912 - Non-pressure chronic ulcer of unspecified part of right lower leg with fat layer exposed (2) Venous insufficiency of both lower extremities Status: Chronic Current Visit: Yes Code(s): I87.2 - Venous insufficiency ( chronic) (peripheral) (3) Cellulitis of both lower extremities Status: Chronic Current Visit: Yes Code(s): L03.115 - Cellulitis of right lower limb; L03.116 - Cellulitis of left lower limb (4) Ulcer of left lower leg Status: Resolved Current Visit: No Qualifiers: Code(s): L97.929 - Non-pressure chronic ulcer of unspecified part of left lower leg with unspecified severity Type of Wound Date of Service: 01/14/18 Chief Complaint: Ulceration of the right lateral LE and medial LE and cluster of ulcerations of the left distal lower extremity; bilateral lower extremity swelling and edema; resolving cellulitis of b/l LE History of Wound: This is a developmentally disabled 57-year-old male who presented with ulcerations of both lower extremities. These have been present for several weeks but have gotten worse in the las week. He was recently in the hospital and given IV antibiotics for treatment of his cellulitis. The patient is a former patient at the [facility], treated for similar problems in the past. The patient sleeps in a recliner, and spends long hours each day and a sitting position. He has been advised to elevate his lower extremities to heart level, or higher. However, he is noncompliant, and resolutely refuses to do so. He lives with his father, who confirms his son's noncompliance, and indicates his inability to convince his son into applying with recommended measures. He is seen here with his sister today. Patient has failed to elevate his lower extremities, spends long hours each day in a sitting position, and has not been wearing his compression stockings, as formerly recommended. He presented with bilateral lower extremity swelling and edema, bilateral lower extremity ulcerations, and cellulitis of both LE. The patient spends most of his day sitting around, watching TV. The patient is communicative, but is obviously developmentally disabled and with a diminished IQ. The patient has undergone a venous duplex examination 7/25/18 which is completely normal. There is no evidence of superficial venous incompetence or DVT. The patient's noninvasive lower extremity arterial study completed in March 2017 is also normal, with triphasic waveforms at ankle level bilaterally, and normal ankle?brachial indices bilaterally. His sister reports that he has not been showering and wears his clothes for weeks without changing them. He has been using silvadene to his wounds. Home Health has been consulted to assist in dressing changes. Progress of Wound: His left leg has done well and is nearly healed but his right leg still appears edematous and has not had improvement in erythema or the size of the wound. He denies fever or chills. - Physical Exam Vital Signs Temp Pulse Resp BP 96.8 F L 57 L 18 136/80 H 01/14/18 15:06 01/14/18 15:06 01/14/18 15:06 01/14/18 15:06 General: Alert, Oriented x3, Cooperative, No apparent distress HEENT: Atraumatic, Normocephalic Oral: Moist Mucosa Abdomen: Obese Extremities: Edema Skin: Ulcer/ Wound Wound Measurements and Assessment WC - Nurse 1 - General Ulcer Measurement Start: 01/07/18 16:03 Freq: Status: Active Protocol: Activity Type Activity Date Activity User E-Sign Co-Sign Detail Recorded Client Recorded Date Recorded By Document 01/14/18 15:06 DL [id number] 01/14/18 15:17 DL 01/14/18 15:06 Wound Center Nurse 1 [Ulcer Assessment] #9 LLE araujo cluster -Current Size (cm) - Length 4.5 -Current Size (cm) - Width 3 -Current Size (cm) - Depth 0.1 -Total Square Cm 13.5 -Photo Taken No -Exudate Amt None Present (0 %) -Wound Margin Indistinct, Non -Visible -Granulation Amt Large (67-100%) -Granulation Quality [place] -Necrosis Amt Small (1-33%) -Necrotic Tissue Type Adherent Slough -Structure Exposed N/A -Texture (Kathleen-wound Skin Appearance) Scarring -Moisture (Kathleen-wound Skin Appearance Dry/Scaly ) -Color (Kathleen-wound Skin Appearance) Erythema Hemosiderin Staining -Temperature (Kathleen-wound Skin No Abnormality Appearance) (Pt Warm) -Tenderness on Palpation (Kathleen-wound No Skin Appearance) -Ulcer Cleansing Wound Cleanser -Foul Odor after Cleansing No -Anesthetic Used 4% Lidocaine Solution #8 RLE Lat Cluster -Current Size (cm) - Length 2 -Current Size (cm) - Width 2.4 -Current Size (cm) - Depth 0.1 -Total Square Cm 4.8 -Photo Taken No -Exudate Amt Small (1-33%) -Exudate Type Serosanguineous -Wound Margin Distinct, Outline Attached -Granulation Amt Large (67-100%) -Granulation Quality Red -Necrosis Amt Small (1-33%) -Necrotic Tissue Type Adherent Slough -Structure Exposed N/A -Texture (Kathleen-wound Skin Appearance) Scarring -Moisture (Kathleen-wound Skin Appearance Dry/Scaly ) -Color (Kathleen-wound Skin Appearance) Erythema Hemosiderin Staining -Tenderness on Palpation (Kathleen-wound No Skin Appearance) -Ulcer Cleansing Wound Cleanser -Foul Odor after Cleansing No -Anesthetic Used 4% Lidocaine Solution #7 R Med LE -Current Size (cm) - Length 0 -Current Size (cm) - Width 0 -Current Size (cm) - Depth 0 -Total Square Cm 0 -Photo Taken Yes -Exudate Amt None Present (0 %) -Wound Margin Indistinct, Non -Visible -Granulation Amt Large (67-100%) -Granulation Quality [place] -Necrosis Amt None Present (0 %) -Structure Exposed N/A -Texture (Kathleen-wound Skin Appearance) Localized Edema -Moisture (Kathleen-wound Skin Appearance Dry/Scaly ) -Color (Kathleen-wound Skin Appearance) Erythema Hemosiderin Staining -Temperature (Kathleen-wound Skin No Abnormality Appearance) (Pt Warm) -Ulcer Cleansing Wound Cleanser -Foul Odor after Cleansing No 5-Left araujo -Current Size (cm) - Length 0 -Current Size (cm) - Width 0 -Current Size (cm) - Depth 0 -Total Square Cm 0 -Photo Taken Yes -Exudate Amt None Present (0 %) -Wound Margin Flat & Intact -Granulation Amt Large (67-100%) -Granulation Quality [place] -Necrosis Amt None Present (0 %) -Structure Exposed N/A -Texture (Kathleen-wound Skin Appearance) Localized Edema -Moisture (Kathleen-wound Skin Appearance Dry/Scaly ) -Color (Kathleen-wound Skin Appearance) Erythema Hemosiderin Staining -Temperature (Kathleen-wound Skin No Abnormality Appearance) (Pt Warm) -Ulcer Cleansing Wound Cleanser -Foul Odor after Cleansing No [Edema Assessment] -Right Calf (cm) 42 -Right Ankle (cm) 25.5 -Left Calf (cm) 41 -Left Ankle (cm) 23 WC - Nurse 2 - General Ulcer CM Notes Start: 01/07/18 16:03 Freq: Status: Active Protocol: Activity Type Activity Date Activity User E-Sign Co-Sign Detail Recorded Client Recorded Date Recorded By Document 01/14/18 15:25 [id number] 01/14/18 15:33 01/14/18 15:25 Wound Center Nurse 2 [Procedure/Treatment] #9 LLE araujo cluster -Time 15:32 -Correct Patient Yes -Correct Side, Site, Position Yes -Correct Procedure Yes -Procedure Performed Yes -Type of Procedure Debridement -Clinical Debridement Subcutaneous -Post Debridement Size (cm) - Length 0.4 -Post Debridement Size (cm) - Width 0.2 -Post Debridement Size (cm) - Depth 0.1 -Total Square Cm 0.08 -Wound/Ulcer Outcome Not Healed -Ulcer Cleansing Rinsed/ Irrigated with Saline -Foul Odor after Cleansing No -Bioengineered Tissue No -Topical Lidocaine (%) 4 -Bleeding Controlled with Pressure -Treatment Response Procedure Tolerated Well #8 RLE Lat Cluster -Time 15:32 -Correct Patient Yes -Correct Side, Site, Position Yes -Correct Procedure Yes -Procedure Performed Yes -Type of Procedure Debridement -Clinical Debridement Subcutaneous -Post Debridement Size (cm) - Length 4.0 -Post Debridement Size (cm) - Width 2.7 -Post Debridement Size (cm) - Depth 0.1 -Total Square Cm 10.80 -Wound/Ulcer Outcome Not Healed -Ulcer Cleansing Rinsed/ Irrigated with Saline -Foul Odor after Cleansing No -Bioengineered Tissue No -Topical Lidocaine (%) 4 -Bleeding Controlled with Pressure -Treatment Response Procedure Tolerated Well #7 R Med LE -Time 15:32 -Correct Patient Yes -Correct Side, Site, Position Yes -Correct Procedure Yes -Procedure Performed Yes -Post Debridement Size (cm) - Length 0 -Post Debridement Size (cm) - Width 0 -Post Debridement Size (cm) - Depth 0 -Total Square Cm 0 -Wound/Ulcer Outcome Healed- Epithelialized -Ulcer Cleansing Rinsed/ Irrigated with Saline -Foul Odor after Cleansing No -Bioengineered Tissue No -Bleeding Controlled with NA -Treatment Response Procedure Tolerated Well 5-Left araujo -Time 15:33 -Correct Patient Yes -Correct Side, Site, Position Yes -Correct Procedure Yes -Procedure Performed Yes -Post Debridement Size (cm) - Length 0 -Post Debridement Size (cm) - Width 0 -Post Debridement Size (cm) - Depth 0 -Total Square Cm 0 -Wound/Ulcer Outcome Healed- Epithelialized -Ulcer Cleansing Rinsed/ Irrigated with Saline -Foul Odor after Cleansing No -Bioengineered Tissue No -Bleeding Controlled with NA -Treatment Response Procedure Tolerated Well [See Physician Procedure note for Specifics] Pain Scale: 0-10 Numeric [Pain] -Is Patient Pain Free? Yes Psych/Mental Status: Normal Affect, Appropriate Debridement Note Post-Debridement Measurements/Treatment WC - Nurse 2 - General Ulcer CM Notes Start: 01/07/18 16:03 Freq: Status: Active Protocol: Activity Type Activity Date Activity User E-Sign Co-Sign Detail Recorded Client Recorded Date Recorded By Document 01/14/18 15:25 [id number] 01/14/18 15:33 01/14/18 15:25 Wound Center Nurse 2 #9 LLE araujo cluster -Time 15:32 -Correct Patient Yes -Correct Side, Site, Position Yes -Correct Procedure Yes -Procedure Performed Yes -Type of Procedure Debridement -Clinical Debridement Subcutaneous -Post Debridement Size (cm) - Length 0.4 -Post Debridement Size (cm) - Width 0.2 -Post Debridement Size (cm) - Depth 0.1 -Total Square Cm 0.08 -Wound/Ulcer Outcome Not Healed -Ulcer Cleansing Rinsed/ Irrigated with Saline -Foul Odor after Cleansing No -Bioengineered Tissue No -Topical Lidocaine (%) 4 -Bleeding Controlled with Pressure -Treatment Response Procedure Tolerated Well #8 RLE Lat Cluster -Time 15:32 -Correct Patient Yes -Correct Side, Site, Position Yes -Correct Procedure Yes -Procedure Performed Yes -Type of Procedure Debridement -Clinical Debridement Subcutaneous -Post Debridement Size (cm) - Length 4.0 -Post Debridement Size (cm) - Width 2.7 -Post Debridement Size (cm) - Depth 0.1 -Total Square Cm 10.80 -Wound/Ulcer Outcome Not Healed -Ulcer Cleansing Rinsed/ Irrigated with Saline -Foul Odor after Cleansing No -Bioengineered Tissue No -Topical Lidocaine (%) 4 -Bleeding Controlled with Pressure -Treatment Response Procedure Tolerated Well #7 R Med LE -Time 15:32 -Correct Patient Yes -Correct Side, Site, Position Yes -Correct Procedure Yes -Procedure Performed Yes -Post Debridement Size (cm) - Length 0 -Post Debridement Size (cm) - Width 0 -Post Debridement Size (cm) - Depth 0 -Total Square Cm 0 -Wound/Ulcer Outcome Healed- Epithelialized -Ulcer Cleansing Rinsed/ Irrigated with Saline -Foul Odor after Cleansing No -Bioengineered Tissue No -Bleeding Controlled with NA -Treatment Response Procedure Tolerated Well 5-Left araujo -Time 15:33 -Correct Patient Yes -Correct Side, Site, Position Yes -Correct Procedure Yes -Procedure Performed Yes -Post Debridement Size (cm) - Length 0 -Post Debridement Size (cm) - Width 0 -Post Debridement Size (cm) - Depth 0 -Total Square Cm 0 -Wound/Ulcer Outcome Healed- Epithelialized -Ulcer Cleansing Rinsed/ Irrigated with Saline -Foul Odor after Cleansing No -Bioengineered Tissue No -Bleeding Controlled with NA -Treatment Response Procedure Tolerated Well Pain Scale: 0-10 Numeric Is Patient Pain Free? Yes Wound debrided: left lower extremity araujo cluster Laterality: Left Type of Debridement: Excisional debridement Anesthesia Used: 4% Lidocaine Solution Depth: Down to and including healthy tissue, in the subcutaneous layer Percentage of wound debrided: 100 Instrument Used: 5mm curette Tissue Removed: yellow slough, devitalized tissue Severity: Fat Layer Exposed Amount of bleeding with debridement: Mild Bleeding Controlled with: Compression and gauze Patient tolerated procedure well - Additional Wound Wound debrided: Right lower extremity lateral cluster Laterality: Right Type of Debridement: Excisional debridement Anesthesia Used: 4% Lidocaine Solution Depth: Down to and including healthy tissue, in the subcutaneous layer Percentage of wound debrided: 100 Instrument Used: 5mm curette Tissue Removed: yellow slough, devitalized tissue Severity: Fat Layer Exposed Amount of bleeding with debridement: Mild Bleeding Controlled with: Compression and gauze Patient tolerated procedure: Patient tolerated procedure well - Additional Wound Wound debrided: right medial LE Laterality: Right Operative Diagnosis: No debridement completed done as the wound is healed. Assessment/Plan Active Problems Ulcer of right lower extremity with fat layer exposed (Chronic) Venous insufficiency of both lower extremities (Chronic) Cellulitis of both lower extremities (Chronic) Assessment: This is a 57-year-old developmentally/intellectually disabled male who presents with venous ulcers of his b/l LE. Plan: Josias's wounds have been evaluated and debrided. Will dress his wounds with Aquacel Extra and have him wear double layer tubigrips. He has been instructed to elevate his lower extremities as much as possible, even during daytime hours. Advised him to shower and change his clothing on a more frequent basis. Activity has been encouraged. Patient has been advised to elevate his lower extremities to heart level as much as possible. He has been advised to refrain from prolonged idle sitting. Despite these recommendations, the patient is poorly compliant, and his cognitive disability appears to be an impediment to his compliance with recommended measures. A wound culture was done on his right leg as there has been lack of improvement to this wound. Will treat based on results. F/U in 1 week
[2018-01-21 16:22] VITALS: BP 132/74; PULSE 64; RESP 20; TEMP 36.8
--- NOTE | 2018-01-21 17:52 | PCM.WC.PN ---
(1) Ulcer of right lower extremity with fat layer exposed Status: Chronic Current Visit: Yes Code(s): L97.912 - Non-pressure chronic ulcer of unspecified part of right lower leg with fat layer exposed (2) Venous insufficiency of both lower extremities Status: Chronic Current Visit: Yes Code(s): I87.2 - Venous insufficiency (chronic) (peripheral) (3) Cellulitis of both lower extremities Status: Chronic Current Visit: Yes Code(s): L03.115 - Cellulitis of right lower limb; L03.116 - Cellulitis of left lower limb (4) Ulcer of left lower leg Status: Resolved Current Visit: Yes Qualifiers: Code(s): L97.929 - Non-pressure chronic ulcer of unspecified part of left lower leg with unspecified severity Type of Wound Date of Service: 01/21/18 Chief Complaint: Ulceration of the right lateral LE and medial LE and cluster of ulcerations of the left distal lower extremity; bilateral lower extremity swelling and edema; resolving cellulitis of b/l LE History of Wound: This is a developmentally disabled 57-year-old male who presented with ulcerations of both lower extremities. These have been present for several weeks but have gotten worse in the las week. He was recently in the hospital and given IV antibiotics for treatment of his cellulitis. The patient is a former patient at the [facility], treated for similar problems in the past. The patient sleeps in a recliner, and spends long hours each day and a sitting position. He has been advised to elevate his lower extremities to heart level, or higher. However, he is noncompliant, and resolutely refuses to do so. He lives with his father, who confirms his son's noncompliance, and indicates his inability to convince his son into applying with recommended measures. He is seen here with his sister today. Patient has failed to elevate his lower extremities, spends long hours each day in a sitting position, and has not been wearing his compression stockings, as formerly recommended. He presented with bilateral lower extremity swelling and edema, bilateral lower extremity ulcerations, and cellulitis of both LE. The patient spends most of his day sitting around, watching TV. The patient is communicative, but is obviously developmentally disabled and with a diminished IQ. The patient has undergone a venous duplex examination 7/25/18 which is completely normal. There is no evidence of superficial venous incompetence or DVT. The patient's noninvasive lower extremity arterial study completed in March 2017 is also normal, with triphasic waveforms at ankle level bilaterally, and normal anklebrachial indices bilaterally. His sister reports that he has not been showering and wears his clothes for weeks without changing them. He has been using silvadene to his wounds. Home Health has been consulted to assist in dressing changes. Progress of Wound: His left leg has done well and is healed but his right leg still appears edematous and has not had much improvement in erythema or the size of the wound. He is noncompliant with compression. He denies fever or chills. - Physical Exam Vital Signs Temp Pulse Resp BP 98.3 F 64 20 H 132/74 H 01/21/18 16:22 01/21/18 16:22 01/21/18 16:22 01/21/18 16:22 General: Alert, Oriented x3, Cooperative, No apparent distress HEENT: Atraumatic, Normocephalic Oral: Moist Mucosa Abdomen: Obese Skin: Ulcer/ Wound Wound Measurements and Assessment WC - Nurse 1 - General Ulcer Measurement Start: 01/07/18 16:03 Freq: Status: Active Protocol: Activity Type Activity Date Activity User E-Sign Co-Sign Detail Recorded Client Recorded Date Recorded By Document 01/21/18 16:22 [email or web address] [id number] 01/21/18 16:31 TYREL 01/21/18 16:22 Wound Center Nurse 1 [Ulcer Assessment] #9 LLE araujo cluster -Combined with other wound No -Current Size (cm) - Length 0 -Current Size (cm) - Width 0 -Current Size (cm) - Depth 0 -Total Square Cm 0 #8 RLE Lat Cluster -Combined with other wound No -Current Size (cm) - Length 3.6 -Current Size (cm) - Width 2 -Current Size (cm) - Depth 0.1 -Total Square Cm 7.2 -Photo Taken No -Epithelialization Small 1-33% -Tunneling No -Undermining/Tunneling No -Circular Undermining No -Classification - Thickness Partial Thickness -Exudate Amt None Present (0 %) -Exudate Type Serosanguineous -Wound Margin Distinct, Outline Attached -Granulation Amt Small (1-33%) -Granulation Quality Pale Red -Slough/Fibrin Yes -Necrosis Amt None Present (0 %) -Necrotic Tissue Type Adherent Slough -Structure Exposed N/A -Texture (Kathleen-wound Skin Appearance) No Abnormality -Moisture (Kathleen-wound Skin Appearance No Abnormality ) -Color (Kathleen-wound Skin Appearance) No Abnormality -Temperature (Kathleen-wound Skin No Abnormality Appearance) (Pt Warm) -Tenderness on Palpation (Kathleen-wound No Skin Appearance) -Ulcer Cleansing Rinsed/ Irrigated with Saline -Foul Odor after Cleansing No -Anesthetic Used 5% Lidocaine Gel [Edema Assessment] -Lower Limb Edema Present Yes -Right Calf (cm) 39.5 -Right Ankle (cm) 27.0 -Left Calf (cm) 39.5 -Left Ankle (cm) 23.0 WC - Nurse 2 - General Ulcer CM Notes Start: 01/07/18 16:03 Freq: Status: Active Protocol: Activity Type Activity Date Activity User E-Sign Co-Sign Detail Recorded Client Recorded Date Recorded By Document 01/21/18 17:05 [id number] 01/21/18 17:07 01/21/18 17:05 Wound Center Nurse 2 [Procedure/Treatment] #8 RLE Lat Cluster -Time 17:05 -Correct Patient Yes -Correct Side, Site, Position Yes -Correct Procedure Yes -Procedure Performed Yes -Type of Procedure Debridement -Clinical Debridement Subcutaneous -Post Debridement Size (cm) - Length 3.7 -Post Debridement Size (cm) - Width 1.2 -Post Debridement Size (cm) - Depth 0.1 -Total Square Cm 4.44 -Wound/Ulcer Outcome Not Healed -Ulcer Cleansing Rinsed/ Irrigated with Saline -Foul Odor after Cleansing No -Bioengineered Tissue No -Topical Lidocaine (%) 5 -Bleeding Controlled with Pressure -Treatment Response Procedure Tolerated Well [See Physician Procedure note for Specifics] Pain Scale: 0-10 Numeric [Pain] -Is Patient Pain Free? Yes Psych/Mental Status: Normal Affect, Appropriate Debridement Note Post-Debridement Measurements/Treatment - Nurse 2 - General Ulcer CM Notes Start: 01/07/18 16:03 Freq: Status: Active Protocol: Activity Type Activity Date Activity User E-Sign Co-Sign Detail Recorded Client Recorded Date Recorded By Document 01/14/18 15:25 TM [id number] 01/14/18 15:33 TM Document 01/21/18 17:05 [id number] 01/21/18 17:07 01/14/18 01/21/18 15:25 17:05 Wound Center Nurse 2 #9 LLE araujo cluster -Time 15:32 -Correct Patient Yes -Correct Side, Site, Position Yes -Correct Procedure Yes -Procedure Performed Yes -Type of Procedure Debridement -Clinical Debridement Subcutaneous -Post Debridement Size (cm) - Length 0.4 -Post Debridement Size (cm) - Width 0.2 -Post Debridement Size (cm) - Depth 0.1 -Total Square Cm 0.08 -Wound/Ulcer Outcome Not Healed -Ulcer Cleansing Rinsed/ Irrigated with Saline -Foul Odor after Cleansing No -Bioengineered Tissue No -Topical Lidocaine (%) 4 -Bleeding Controlled with Pressure -Treatment Response Procedure Tolerated Well #8 RLE Lat Cluster -Time 15:32 17:05 -Correct Patient Yes Yes -Correct Side, Site, Position Yes Yes -Correct Procedure Yes Yes -Procedure Performed Yes Yes -Type of Procedure Debridement Debridement -Clinical Debridement Subcutaneous Subcutaneous -Post Debridement Size (cm) - Length 4.0 3.7 -Post Debridement Size (cm) - Width 2.7 1.2 -Post Debridement Size (cm) - Depth 0.1 0.1 -Total Square Cm 10.80 4.44 -Wound/Ulcer Outcome Not Healed Not Healed -Ulcer Cleansing Rinsed/ Rinsed/ Irrigated with Irrigated with Saline Saline -Foul Odor after Cleansing No No -Bioengineered Tissue No No -Topical Lidocaine (%) 4 5 -Bleeding Controlled with Pressure Pressure -Treatment Response Procedure Procedure Tolerated Well Tolerated Well #7 R Med LE -Time 15:32 -Correct Patient Yes -Correct Side, Site, Position Yes -Correct Procedure Yes -Procedure Performed Yes -Post Debridement Size (cm) - Length 0 -Post Debridement Size (cm) - Width 0 -Post Debridement Size (cm) - Depth 0 -Total Square Cm 0 -Wound/Ulcer Outcome Healed- Epithelialized -Ulcer Cleansing Rinsed/ Irrigated with Saline -Foul Odor after Cleansing No -Bioengineered Tissue No -Bleeding Controlled with NA -Treatment Response Procedure Tolerated Well 5-Left araujo -Time 15:33 -Correct Patient Yes -Correct Side, Site, Position Yes -Correct Procedure Yes -Procedure Performed Yes -Post Debridement Size (cm) - Length 0 -Post Debridement Size (cm) - Width 0 -Post Debridement Size (cm) - Depth 0 -Total Square Cm 0 -Wound/Ulcer Outcome Healed- Epithelialized -Ulcer Cleansing Rinsed/ Irrigated with Saline -Foul Odor after Cleansing No -Bioengineered Tissue No -Bleeding Controlled with NA -Treatment Response Procedure Tolerated Well Pain Scale: 0-10 Numeric Is Patient Pain Free? Yes Yes Wound debrided: right lateral LE cluster Laterality: Right Type of Debridement: Excisional debridement Anesthesia Used: 4% Lidocaine Solution Depth: Down to and including healthy tissue, in the subcutaneous layer Percentage of wound debrided: 100 Instrument Used: 5mm curette Tissue Removed: yellow slough, devitalized tissue Severity: Fat Layer Exposed Amount of bleeding with debridement: Mild Bleeding Controlled with: Compression and gauze Patient tolerated procedure well Assessment/Plan Active Problems Ulcer of right lower extremity with fat layer exposed (Chronic) Venous insufficiency of both lower extremities (Chronic) Cellulitis of both lower extremities (Chronic) Assessment: This is a 57-year-old developmentally/intellectually disabled male who presents with venous ulcers of his b/l LE. Plan: Josias's wounds have been evaluated and debrided. Will dress his wound with Aquacel Extra and have him wear double layer tubigrips. He has been instructed to elevate his lower extremities as much as possible, even during daytime hours. Wound culture was positive for staph epidermidis. Will treat with daily topical gentamicin based on sensitivities. Advised him to shower and change his clothing on a more frequent basis. Activity has been encouraged. Patient has been advised to elevate his lower extremities to heart level as much as possible. He has been advised to refrain from prolonged idle sitting. Despite these recommendations, the patient is poorly compliant, and his cognitive disability appears to be an impediment to his compliance with recommended measures. F/U in 1 week
[2018-01-28 14:38] VITALS: BP 142/74; PULSE 73; RESP 20; TEMP 37.1
--- NOTE | 2018-01-28 20:37 | PCM.WC.PN ---
(1) Ulcer of right lower extremity with fat layer exposed Status: Chronic Current Visit: Yes Code(s): L97.912 - Non-pressure chronic ulcer of unspecified part of right lower leg with fat layer exposed (2) Venous insufficiency of both lower extremities Status: Chronic Current Visit: Yes Code(s): I87.2 - Venous insufficiency (chronic) (peripheral) (3) Cellulitis of both lower extremities Status: Chronic Current Visit: Yes Code(s): L03.115 - Cellulitis of right lower limb; L03.116 - Cellulitis of left lower limb (4) Ulcer of left lower leg Status: Acute Current Visit: Yes Qualifiers: Non-pressure ulcer stage: with fat layer exposed Code(s): L97.929 - Non-pressure chronic ulcer of unspecified part of left lower leg with unspecified severity Type of Wound Date of Service: 01/28/18 Chief Complaint: Ulceration of the right lateral LE and medial LE and cluster of ulcerations of the left distal lower extremity; bilateral lower extremity swelling and edema; resolving cellulitis of b/l LE History of Wound: This is a developmentally disabled 57-year-old male who presented with ulcerations of both lower extremities. These have been present for several weeks but have gotten worse in the las week. He was recently in the hospital and given IV antibiotics for treatment of his cellulitis. The patient is a former patient at the [facility], treated for similar problems in the past. The patient sleeps in a recliner, and spends long hours each day and a sitting position. He has been advised to elevate his lower extremities to heart level, or higher. However, he is noncompliant, and resolutely refuses to do so. He lives with his father, who confirms his son's noncompliance, and indicates his inability to convince his son into applying with recommended measures. He is seen here with his sister today. Patient has failed to elevate his lower extremities, spends long hours each day in a sitting position, and has not been wearing his compression stockings, as formerly recommended. He presented with bilateral lower extremity swelling and edema, bilateral lower extremity ulcerations, and cellulitis of both LE. The patient spends most of his day sitting around, watching TV. The patient is communicative, but is obviously developmentally disabled and with a diminished IQ. The patient has undergone a venous duplex examination 12/29/17 which is completely normal. There is no evidence of superficial venous incompetence or DVT. The patient's noninvasive lower extremity arterial study completed in March 2017 is also normal, with triphasic waveforms at ankle level bilaterally, and normal anklebrachial indices bilaterally. His sister reports that he has not been showering and wears his clothes for weeks without changing them. He has been using silvadene to his wounds. Home Health has been consulted to assist in dressing changes. Progress of Wound: His left leg developed a blister and now has an open wound on this leg again. There is no improvement in his right leg. He is noncompliant with compression. He denies fever or chills. - Physical Exam Vital Signs Temp Pulse Resp BP 98.7 F 73 20 H 142/74 H 01/28/18 14:38 01/28/18 14:38 01/28/18 14:38 01/28/18 14:38 General: Alert, Oriented x3, Cooperative, No apparent distress HEENT: Atraumatic, Normocephalic Oral: Moist Mucosa Abdomen: Obese Extremities: Edema Skin: Ulcer/ Wound Wound Measurements and Assessment WC - Nurse 1 - General Ulcer Measurement Start: 01/07/18 16:03 Freq: Status: Active Protocol: Activity Type Activity Date Activity User E-Sign Co-Sign Detail Recorded Client Recorded Date Recorded By Document 01/28/18 14:38 DL [id number] 01/28/18 14:45 DL 01/28/18 14:38 Wound Center Nurse 1 [Ulcer Assessment] #8 RLE Lat Cluster -Current Size (cm) - Length 3 -Current Size (cm) - Width 1.1 -Current Size (cm) - Depth 0.1 -Total Square Cm 3.3 -Photo Taken No -Exudate Amt Small (1-33%) -Exudate Type Serosanguineous -Wound Margin Distinct, Outline Attached -Granulation Amt Large (67-100%) -Granulation Quality Red -Necrosis Amt Small (1-33%) -Necrotic Tissue Type Adherent Slough -Structure Exposed N/A -Texture (Kathleen-wound Skin Appearance) Scarring -Moisture (Kathleen-wound Skin Appearance Dry/Scaly ) -Color (Kathleen-wound Skin Appearance) Erythema Hemosiderin Staining -Temperature (Kathleen-wound Skin No Abnormality Appearance) (Pt Warm) -Ulcer Cleansing Wound Cleanser -Foul Odor after Cleansing No -Anesthetic Used 4% Lidocaine Solution [Edema Assessment] -Right Calf (cm) 42.6 -Right Ankle (cm) 25.5 -Left Calf (cm) 41 -Left Ankle (cm) 22.8 WC - Nurse 2 - General Ulcer CM Notes Start: 01/07/18 16:03 Freq: Status: Active Protocol: Activity Type Activity Date Activity User E-Sign Co-Sign Detail Recorded Client Recorded Date Recorded By Document 01/28/18 14:55 [id number] 01/28/18 15:08 01/28/18 14:55 Wound Center Nurse 2 [Procedure/Treatment] #10 left lower araujo -Time 14:57 -Correct Patient Yes -Correct Side, Site, Position Yes -Correct Procedure Yes -Procedure Performed Yes -Post Debridement Size (cm) - Length 3.0 -Post Debridement Size (cm) - Width 12.0 -Post Debridement Size (cm) - Depth 0.1 -Total Square Cm 36.00 -Wound/Ulcer Outcome Not Healed -Ulcer Cleansing Rinsed/ Irrigated with Saline -Foul Odor after Cleansing No -Bioengineered Tissue No -Bleeding Controlled with NA -Treatment Response Procedure Tolerated Well #8 RLE Lat Cluster -Time 14:58 -Correct Patient Yes -Correct Side, Site, Position Yes -Correct Procedure Yes -Procedure Performed Yes -Type of Procedure Debridement -Clinical Debridement Subcutaneous -Post Debridement Size (cm) - Length 3.0 -Post Debridement Size (cm) - Width 1.4 -Post Debridement Size (cm) - Depth 0.1 -Total Square Cm 4.20 -Wound/Ulcer Outcome Not Healed -Ulcer Cleansing Rinsed/ Irrigated with Saline -Foul Odor after Cleansing No -Bioengineered Tissue No -Topical Lidocaine (%) 5 -Bleeding Controlled with Pressure -Treatment Response Procedure Tolerated Well [See Physician Procedure note for Specifics] Pain Scale: 0-10 Numeric [Pain] -Is Patient Pain Free? Yes Psych/Mental Status: Normal Affect, Appropriate Debridement Note Post-Debridement Measurements/Treatment WC - Nurse 2 - General Ulcer CM Notes Start: 01/07/18 16:03 Freq: Status: Active Protocol: Activity Type Activity Date Activity User E-Sign Co-Sign Detail Recorded Client Recorded Date Recorded By Document 01/14/18 15:25 [id number] 01/14/18 15:33 Document 01/21/18 17:05 [id number] 01/21/18 17:07 Document 01/28/18 14:55 [id number] 01/28/18 15:08 01/14/18 01/21/18 01/28/18 15:25 17:05 14:55 Wound Center Nurse 2 #10 left lower araujo -Time 14:57 -Correct Patient Yes -Correct Side, Site, Position Yes -Correct Procedure Yes -Procedure Performed Yes -Post Debridement Size (cm) - Length 3.0 -Post Debridement Size (cm) - Width 12.0 -Post Debridement Size (cm) - Depth 0.1 -Total Square Cm 36.00 -Wound/Ulcer Outcome Not Healed -Ulcer Cleansing Rinsed/ Irrigated with Saline -Foul Odor after Cleansing No -Bioengineered Tissue No -Bleeding Controlled with NA -Treatment Response Procedure Tolerated Well #9 LLE araujo cluster -Time 15:32 -Correct Patient Yes -Correct Side, Site, Position Yes -Correct Procedure Yes -Procedure Performed Yes -Type of Procedure Debridement -Clinical Debridement Subcutaneous -Post Debridement Size (cm) - Length 0.4 -Post Debridement Size (cm) - Width 0.2 -Post Debridement Size (cm) - Depth 0.1 -Total Square Cm 0.08 -Wound/Ulcer Outcome Not Healed -Ulcer Cleansing Rinsed/ Irrigated with Saline -Foul Odor after Cleansing No -Bioengineered Tissue No -Topical Lidocaine (%) 4 -Bleeding Controlled with Pressure -Treatment Response Procedure Tolerated Well #8 RLE Lat Cluster -Time 15:32 17:05 14:58 -Correct Patient Yes Yes Yes -Correct Side, Site, Position Yes Yes Yes -Correct Procedure Yes Yes Yes -Procedure Performed Yes Yes Yes -Type of Procedure Debridement Debridement Debridement -Clinical Debridement Subcutaneous Subcutaneous Subcutaneous -Post Debridement Size (cm) - Length 4.0 3.7 3.0 -Post Debridement Size (cm) - Width 2.7 1.2 1.4 -Post Debridement Size (cm) - Depth 0.1 0.1 0.1 -Total Square Cm 10.80 4.44 4.20 -Wound/Ulcer Outcome Not Healed Not Healed Not Healed -Ulcer Cleansing Rinsed/ Rinsed/ Rinsed/ Irrigated with Irrigated with Irrigated with Saline Saline Saline -Foul Odor after Cleansing No No No -Bioengineered Tissue No No No -Topical Lidocaine (%) 4 5 5 -Bleeding Controlled with Pressure Pressure Pressure -Treatment Response Procedure Procedure Procedure Tolerated Well Tolerated Well Tolerated Well #7 R Med LE -Time 15:32 -Correct Patient Yes -Correct Side, Site, Position Yes -Correct Procedure Yes -Procedure Performed Yes -Post Debridement Size (cm) - Length 0 -Post Debridement Size (cm) - Width 0 -Post Debridement Size (cm) - Depth 0 -Total Square Cm 0 -Wound/Ulcer Outcome Healed- Epithelialized -Ulcer Cleansing Rinsed/ Irrigated with Saline -Foul Odor after Cleansing No -Bioengineered Tissue No -Bleeding Controlled with NA -Treatment Response Procedure Tolerated Well 5-Left araujo -Time 15:33 -Correct Patient Yes -Correct Side, Site, Position Yes -Correct Procedure Yes -Procedure Performed Yes -Post Debridement Size (cm) - Length 0 -Post Debridement Size (cm) - Width 0 -Post Debridement Size (cm) - Depth 0 -Total Square Cm 0 -Wound/Ulcer Outcome Healed- Epithelialized -Ulcer Cleansing Rinsed/ Irrigated with Saline -Foul Odor after Cleansing No -Bioengineered Tissue No -Bleeding Controlled with NA -Treatment Response Procedure Tolerated Well Pain Scale: 0-10 Numeric Is Patient Pain Free? Yes Yes Yes Wound debrided: left lower araujo Laterality: Left No debridement was completed today - no slough present - blistered area with exposed subcutaneous tissue - Additional Wound Wound debrided: right lateral LE cluster Laterality: Right Type of Debridement: Excisional debridement Anesthesia Used: 5% Lidocaine Gel Depth: Down to and including healthy tissue, in the subcutaneous layer Percentage of wound debrided: 100 Instrument Used: 5mm curette Tissue Removed: devitalized tissue, slough Severity: Fat Layer Exposed Amount of bleeding with debridement: Mild Bleeding Controlled with: Compression and gauze Patient tolerated procedure: Patient tolerated procedure well Assessment/Plan Active Problems Ulcer of right lower extremity with fat layer exposed (Chronic) Venous insufficiency of both lower extremities (Chronic) Cellulitis of both lower extremities (Chronic) Ulcer of left lower leg (Acute) Assessment: This is a 57-year-old developmentally/intellectually disabled male who presents with venous ulcers of his b/l LE. Plan: Josias's wounds have been evaluated and debrided. Will dress his wounds with Aquacel Extra. Due to his noncompliance with tubigrips will treat him with 3M wraps to treat his wounds and the edema causing his wounds. He has been instructed to elevate his lower extremities as much as possible, even during daytime hours. Wound culture was positive for staph epidermidis and he was instructed to use daily topical gentamicin based on sensitivities but he did not pick this up from the pharmacy. Advised him to shower and change his clothing on a more frequent basis. Activity has been encouraged. Patient has been advised to elevate his lower extremities to heart level as much as possible. He has been advised to refrain from prolonged idle sitting. Despite these recommendations, the patient is poorly compliant, and his cognitive disability appears to be an impediment to his compliance with recommended measures. He will continue to develop wounds unless he is more compliant with compression therapy. F/U in 1 week
[2018-02-04 15:50] VITALS: BP 130/73; PULSE 75; RESP 18; TEMP 36.9
--- NOTE | 2018-02-04 18:57 | PCM.WC.PN ---
(1) Ulcer of right lower extremity with fat layer exposed Status: Chronic Current Visit: Yes Code(s): L97.912 - Non-pressure chronic ulcer of unspecified part of right lower leg with fat layer exposed (2) Venous insufficiency of both lower extremities Status: Chronic Current Visit: Yes Code(s): I87.2 - Venous insufficiency (chronic) (peripheral) (3) Cellulitis of both lower extremities Status: Chronic Current Visit: Yes Code(s): L03.115 - Cellulitis of right lower limb; L03.116 - Cellulitis of left lower limb (4) Ulcer of left lower leg Status: Acute Current Visit: Yes Qualifiers: Non-pressure ulcer stage: with fat layer exposed Code(s): L97.929 - Non-pressure chronic ulcer of unspecified part of left lower leg with unspecified severity Type of Wound Date of Service: 02/04/18 Chief Complaint: Ulceration of the right lateral LE and medial LE and cluster of ulcerations of the left distal lower extremity; bilateral lower extremity swelling and edema; resolving cellulitis of b/l LE History of Wound: This is a developmentally disabled 57-year-old male who presented with ulcerations of both lower extremities. These have been present for several weeks but have gotten worse in the las week. He was recently in the hospital and given IV antibiotics for treatment of his cellulitis. The patient is a former patient at the [facility], treated for similar problems in the past. The patient sleeps in a recliner, and spends long hours each day and a sitting position. He has been advised to elevate his lower extremities to heart level, or higher. However, he is noncompliant, and resolutely refuses to do so. He lives with his father, who confirms his son's noncompliance, and indicates his inability to convince his son into applying with recommended measures. He is seen here with his sister today. Patient has failed to elevate his lower extremities, spends long hours each day in a sitting position, and has not been wearing his compression stockings, as formerly recommended. He presented with bilateral lower extremity swelling and edema, bilateral lower extremity ulcerations, and cellulitis of both LE. The patient spends most of his day sitting around, watching TV. The patient is communicative, but is obviously developmentally disabled and with a diminished IQ. The patient has undergone a venous duplex examination 12/29/17 which is completely normal. There is no evidence of superficial venous incompetence or DVT. The patient's noninvasive lower extremity arterial study completed in March 2017 is also normal, with triphasic waveforms at ankle level bilaterally, and normal anklebrachial indices bilaterally. His sister reports that he has not been showering and wears his clothes for weeks without changing them. He has been using silvadene to his wounds. Home Health has been consulted to assist in dressing changes. Progress of Wound: He tolerated compression with 3M wraps but did not like them. His wounds did improve. He denies fever or chills. - Physical Exam Vital Signs Temp Pulse Resp BP 98.4 F 75 18 130/73 H 02/04/18 15:50 02/04/18 15:50 02/04/18 15:50 02/04/18 15:50 General: Alert, Oriented x3, Cooperative, No apparent distress HEENT: Atraumatic, Normocephalic Abdomen: Obese Extremities: Edema Skin: Ulcer/ Wound Wound Measurements and Assessment WC - Nurse 1 - General Ulcer Measurement Start: 01/07/18 16:03 Freq: Status: Active Protocol: Activity Type Activity Date Activity User E-Sign Co-Sign Detail Recorded Client Recorded Date Recorded By Document 02/04/18 15:43 [id number] 02/04/18 15:50 02/04/18 15:43 Wound Center Nurse 1 [Ulcer Assessment] #10 left lower araujo -Combined with other wound No -Current Size (cm) - Length 2.3 -Current Size (cm) - Width 12.8 -Current Size (cm) - Depth 0.1 -Total Square Cm 29.44 -Photo Taken No -Epithelialization None Present -Tunneling No -Undermining/Tunneling No -Circular Undermining No -Exudate Amt Medium (34-66%) -Exudate Type Serosanguineous -Wound Margin Distinct, Outline Attached -Granulation Amt Large (67-100%) -Granulation Quality Red -Necrosis Amt None Present (0 %) -Necrotic Tissue Type Adherent Slough -Texture (Kathleen-wound Skin Appearance) Friable Localized Edema -Moisture (Kathleen-wound Skin Appearance No Abnormality ) Assessed -Color (Kathleen-wound Skin Appearance) No Abnormality Assessed -Temperature (Kathleen-wound Skin No Abnormality Appearance) (Pt Warm) -Tenderness on Palpation (Kathleen-wound Yes Skin Appearance) -Ulcer Cleansing Rinsed/ Irrigated with Saline -Foul Odor after Cleansing No -Anesthetic Used 4% Lidocaine Solution #8 RLE Lat Cluster -Combined with other wound No -Current Size (cm) - Length 1.6 -Current Size (cm) - Width 0.8 -Current Size (cm) - Depth 0.1 -Total Square Cm 1.28 -Photo Taken No -Tunneling No -Undermining/Tunneling No -Circular Undermining No -Exudate Amt None Present (0 %) -Wound Margin Distinct, Outline Attached -Granulation Amt None Present (0 %) -Granulation Quality N/A -Texture (Kathleen-wound Skin Appearance) Scarring -Moisture (Kathleen-wound Skin Appearance No Abnormality ) Assessed -Color (Kathleen-wound Skin Appearance) No Abnormality Assessed -Temperature (Kathleen-wound Skin No Abnormality Appearance) (Pt Warm) -Tenderness on Palpation (Kathleen-wound No Skin Appearance) -Ulcer Cleansing Rinsed/ Irrigated with Saline -Foul Odor after Cleansing No -Anesthetic Used 4% Lidocaine Solution [Edema Assessment] -Lower Limb Edema Present Yes -Right Calf (cm) 42 -Right Ankle (cm) 24 -Left Calf (cm) 42 -Left Ankle (cm) 24.5 WC - Nurse 2 - General Ulcer CM Notes Start: 01/07/18 16:03 Freq: Status: Active Protocol: Activity Type Activity Date Activity User E-Sign Co-Sign Detail Recorded Client Recorded Date Recorded By Document 02/04/18 16:46 [id number] 02/04/18 16:48 02/04/18 16:46 Wound Center Nurse 2 [Procedure/Treatment] #10 left lower araujo -Time 16:47 -Correct Patient Yes -Correct Side, Site, Position Yes -Correct Procedure Yes -Procedure Performed Yes -Type of Procedure Debridement -Clinical Debridement Subcutaneous -Post Debridement Size (cm) - Length 2.5 -Post Debridement Size (cm) - Width 12.0 -Post Debridement Size (cm) - Depth 0.1 -Total Square Cm 30.00 -Wound/Ulcer Outcome Not Healed -Ulcer Cleansing Rinsed/ Irrigated with Saline -Foul Odor after Cleansing No -Bioengineered Tissue No -Topical Lidocaine (%) 4 -Bleeding Controlled with Pressure -Treatment Response Procedure Tolerated Well #8 RLE Lat Cluster -Time 16:47 -Correct Patient Yes -Correct Side, Site, Position Yes -Correct Procedure Yes -Procedure Performed Yes -Type of Procedure Debridement -Clinical Debridement Subcutaneous -Post Debridement Size (cm) - Length 1.5 -Post Debridement Size (cm) - Width 1.0 -Post Debridement Size (cm) - Depth 0.1 -Total Square Cm 1.50 -Wound/Ulcer Outcome Not Healed -Ulcer Cleansing Rinsed/ Irrigated with Saline -Foul Odor after Cleansing No -Bioengineered Tissue No -Topical Lidocaine (%) 4 -Bleeding Controlled with Pressure -Treatment Response Procedure Tolerated Well [See Physician Procedure note for Specifics] Pain Scale: 0-10 Numeric [Pain] -Is Patient Pain Free? Yes Psych/Mental Status: Normal Affect Debridement Note Post-Debridement Measurements/Treatment WC - Nurse 2 - General Ulcer CM Notes Start: 01/07/18 16:03 Freq: Status: Active Protocol: Activity Type Activity Date Activity User E-Sign Co-Sign Detail Recorded Client Recorded Date Recorded By Document 01/14/18 15:25 TM [id number] 01/14/18 15:33 TM Document 01/21/18 17:05 [email or web address] [id number] 01/21/18 17:07 TM Document 01/28/18 14:55 TM [id number] 01/28/18 15:08 TM Document 02/04/18 16:46 TM [id number] 02/04/18 16:48 TM 01/14/18 01/21/18 01/28/18 15:25 17:05 14:55 Wound Center Nurse 2 #10 left lower araujo -Time 14:57 -Correct Patient Yes -Correct Side, Site, Position Yes -Correct Procedure Yes -Procedure Performed Yes -Type of Procedure -Clinical Debridement -Post Debridement Size (cm) - Length 3.0 -Post Debridement Size (cm) - Width 12.0 -Post Debridement Size (cm) - Depth 0.1 -Total Square Cm 36.00 -Wound/Ulcer Outcome Not Healed -Ulcer Cleansing Rinsed/ Irrigated with Saline -Foul Odor after Cleansing No -Bioengineered Tissue No -Topical Lidocaine (%) -Bleeding Controlled with NA -Treatment Response Procedure Tolerated Well #9 LLE araujo cluster -Time 15:32 -Correct Patient Yes -Correct Side, Site, Position Yes -Correct Procedure Yes -Procedure Performed Yes -Type of Procedure Debridement -Clinical Debridement Subcutaneous -Post Debridement Size (cm) - Length 0.4 -Post Debridement Size (cm) - Width 0.2 -Post Debridement Size (cm) - Depth 0.1 -Total Square Cm 0.08 -Wound/Ulcer Outcome Not Healed -Ulcer Cleansing Rinsed/ Irrigated with Saline -Foul Odor after Cleansing No -Bioengineered Tissue No -Topical Lidocaine (%) 4 -Bleeding Controlled with Pressure -Treatment Response Procedure Tolerated Well #8 RLE Lat Cluster -Time 15:32 17:05 14:58 -Correct Patient Yes Yes Yes -Correct Side, Site, Position Yes Yes Yes -Correct Procedure Yes Yes Yes -Procedure Performed Yes Yes Yes -Type of Procedure Debridement Debridement Debridement -Clinical Debridement Subcutaneous Subcutaneous Subcutaneous -Post Debridement Size (cm) - Length 4.0 3.7 3.0 -Post Debridement Size (cm) - Width 2.7 1.2 1.4 -Post Debridement Size (cm) - Depth 0.1 0.1 0.1 -Total Square Cm 10.80 4.44 4.20 -Wound/Ulcer Outcome Not Healed Not Healed Not Healed -Ulcer Cleansing Rinsed/ Rinsed/ Rinsed/ Irrigated with Irrigated with Irrigated with Saline Saline Saline -Foul Odor after Cleansing No No No -Bioengineered Tissue No No No -Topical Lidocaine (%) 4 5 5 -Bleeding Controlled with Pressure Pressure Pressure -Treatment Response Procedure Procedure Procedure Tolerated Well Tolerated Well Tolerated Well #7 R Med LE -Time 15:32 -Correct Patient Yes -Correct Side, Site, Position Yes -Correct Procedure Yes -Procedure Performed Yes -Post Debridement Size (cm) - Length 0 -Post Debridement Size (cm) - Width 0 -Post Debridement Size (cm) - Depth 0 -Total Square Cm 0 -Wound/Ulcer Outcome Healed- Epithelialized -Ulcer Cleansing Rinsed/ Irrigated with Saline -Foul Odor after Cleansing No -Bioengineered Tissue No -Bleeding Controlled with NA -Treatment Response Procedure Tolerated Well 5-Left araujo -Time 15:33 -Correct Patient Yes -Correct Side, Site, Position Yes -Correct Procedure Yes -Procedure Performed Yes -Post Debridement Size (cm) - Length 0 -Post Debridement Size (cm) - Width 0 -Post Debridement Size (cm) - Depth 0 -Total Square Cm 0 -Wound/Ulcer Outcome Healed- Epithelialized -Ulcer Cleansing Rinsed/ Irrigated with Saline -Foul Odor after Cleansing No -Bioengineered Tissue No -Bleeding Controlled with NA -Treatment Response Procedure Tolerated Well Pain Scale: 0-10 Numeric Is Patient Pain Free? Yes Yes Yes 02/04/18 16:46 Wound Center Nurse 2 #10 left lower araujo -Time 16:47 -Correct Patient Yes -Correct Side, Site, Position Yes -Correct Procedure Yes -Procedure Performed Yes -Type of Procedure Debridement -Clinical Debridement Subcutaneous -Post Debridement Size (cm) - Length 2.5 -Post Debridement Size (cm) - Width 12.0 -Post Debridement Size (cm) - Depth 0.1 -Total Square Cm 30.00 -Wound/Ulcer Outcome Not Healed -Ulcer Cleansing Rinsed/ Irrigated with Saline -Foul Odor after Cleansing No -Bioengineered Tissue No -Topical Lidocaine (%) 4 -Bleeding Controlled with Pressure -Treatment Response Procedure Tolerated Well #9 LLE araujo cluster -Time -Correct Patient -Correct Side, Site, Position -Correct Procedure -Procedure Performed -Type of Procedure -Clinical Debridement -Post Debridement Size (cm) - Length -Post Debridement Size (cm) - Width -Post Debridement Size (cm) - Depth -Total Square Cm -Wound/Ulcer Outcome -Ulcer Cleansing -Foul Odor after Cleansing -Bioengineered Tissue -Topical Lidocaine (%) -Bleeding Controlled with -Treatment Response #8 RLE Lat Cluster -Time 16:47 -Correct Patient Yes -Correct Side, Site, Position Yes -Correct Procedure Yes -Procedure Performed Yes -Type of Procedure Debridement -Clinical Debridement Subcutaneous -Post Debridement Size (cm) - Length 1.5 -Post Debridement Size (cm) - Width 1.0 -Post Debridement Size (cm) - Depth 0.1 -Total Square Cm 1.50 -Wound/Ulcer Outcome Not Healed -Ulcer Cleansing Rinsed/ Irrigated with Saline -Foul Odor after Cleansing No -Bioengineered Tissue No -Topical Lidocaine (%) 4 -Bleeding Controlled with Pressure -Treatment Response Procedure Tolerated Well #7 R Med LE -Time -Correct Patient -Correct Side, Site, Position -Correct Procedure -Procedure Performed -Post Debridement Size (cm) - Length -Post Debridement Size (cm) - Width -Post Debridement Size (cm) - Depth -Total Square Cm -Wound/Ulcer Outcome -Ulcer Cleansing -Foul Odor after Cleansing -Bioengineered Tissue -Bleeding Controlled with -Treatment Response 5-Left araujo -Time -Correct Patient -Correct Side, Site, Position -Correct Procedure -Procedure Performed -Post Debridement Size (cm) - Length -Post Debridement Size (cm) - Width -Post Debridement Size (cm) - Depth -Total Square Cm -Wound/Ulcer Outcome -Ulcer Cleansing -Foul Odor after Cleansing -Bioengineered Tissue -Bleeding Controlled with -Treatment Response Pain Scale: 0-10 Numeric Is Patient Pain Free? Yes Wound debrided: left lower araujo Laterality: Left Type of Debridement: Excisional debridement Anesthesia Used: 4% Lidocaine Solution Depth: Down to and including healthy tissue, in the subcutaneous layer Percentage of wound debrided: 100 Instrument Used: 5mm curette Tissue Removed: yellow slough, devitalized tissue Severity: Fat Layer Exposed Amount of bleeding with debridement: Mild Bleeding Controlled with: Compression and gauze Patient tolerated procedure well - Additional Wound Wound debrided: right lateral LE cluster Laterality: Right Type of Debridement: Excisional debridement Anesthesia Used: 4% Lidocaine Solution Depth: Down to and including healthy tissue, in the subcutaneous layer Percentage of wound debrided: 100 Instrument Used: 5mm curette Tissue Removed: yellow slough, devitalized tissue Severity: Fat Layer Exposed Amount of bleeding with debridement: Mild Bleeding Controlled with: Compression and gauze Patient tolerated procedure: Patient tolerated procedure well Assessment/Plan Active Problems Ulcer of right lower extremity with fat layer exposed (Chronic) Venous insufficiency of both lower extremities (Chronic) Cellulitis of both lower extremities (Chronic) Ulcer of left lower leg (Acute) Assessment: This is a 57-year-old developmentally/intellectually disabled male who presents with venous ulcers of his b/l LE. Plan: Josias's wounds have been evaluated and debrided. Will dress his wounds with Aquacel Extra. Due to his noncompliance with tubigrips will continue to treat him with 3M wraps to treat his wounds and the edema causing his wounds. He has been instructed to elevate his lower extremities as much as possible, even during daytime hours. Activity has been encouraged. Patient has been advised to elevate his lower extremities to heart level as much as possible. He has been advised to refrain from prolonged idle sitting. Despite these recommendations, the patient is poorly compliant, and his cognitive disability appears to be an impediment to his compliance with recommended measures. He will continue to develop wounds unless he is more compliant with compression therapy. F/U in 1 week
== END 2018-02-04 23:59 ==
LOC: WC 15:30
PROVIDERS: Family Provider Family Medicine; PCP Family Medicine; Visit Provider Family Medicine
DX: I87.2 Venous insufficiency (chronic) (peripheral) (principal); L03.115 Cellulitis of right lower limb; L97.812 Non-pressure chronic ulcer of other part of right lower leg with fat layer exposed; R60.0 Localized edema; M79.89 Other specified soft tissue disorders; L97.822 Non-pressure chronic ulcer of other part of left lower leg with fat layer exposed; Z91.19 Patient's noncompliance with other medical treatment and regimen; F79 Unspecified intellectual disabilities
CPT/HCPCS: 11042; 11045; 29581; 87070; 87075; 87077; 87186; 87205; 99213; G0463

== ENCOUNTER 2018-02-13 05:14 | Emergency (ER) | payer MEDICARE, SELFPAY ==
[2018-02-13 05:15] VITALS: BP 137/78; PULSE 78; RESP 18; TEMP 36.9; O2SAT 98; BMI 36.9
[2018-02-13 07:45] VITALS: BP 132/87; PULSE 78; RESP 18; O2SAT 98
--- NOTE | 2018-02-13 08:04 | ED.DCSUM_ITS ---
- ER Visit Summary Date of Service: 02/13/18 Chief Complaint: Abdominal pain History of Present Illness: The patient is a 58 M presenting with left lower quadrant abdominal pain. This started this morning. He states his symptoms are now starting to improve. He has nausea with no vomiting. He denies diarrhea or constipation. Denies urinary complaints. Denies fever. He has had similar symptoms in the past. Physical Examination: Vitals are stable. Patient is afebrile. Alert no acute distress. HEENT exam is unremarkable. Neck is supple. Lungs are clear and equal bilaterally. Heart is regular rate and rhythm. Abdomen is soft nontender nondistended. No guarding or rebound Extremities are unremarkable. Skin is warm and dry. Remainder of exam is unremarkable. Emergency Department Course and Treatment: Patient refuses blood work. CT abdomen pelvis without contrast shows again noted nonobstructing tiny/punctate left renal calculi. Diffuse mild wall thickening of the stomach/gastric antrum. Fluid-filled borderline distended duodenum, jejunum and portion of the distal small intestine is seen with clumping of the small bowel, suggestive of acute gastroenteritis. Chronic mesenteric adenitis. Moderately increased colonic stool volume. Patient is feeling improved in the emergency department. He is able to tolerate p.o. He continues to decline further testing. He is given a prescription for Bentyl and Zofran. He is advised to follow-up with Dr. Vang his primary care physician. He is advised to return to the ED if he has any worsening complaints. Disposition: Discharge home Impression: Abdominal pain This note was generated with [employer] dictation software. It may contain incorrect words, spelling, and punctuation that were not noted in review of the chart prior to signing ED Disposition - Plan for ED Patient: Chief Complaint: Abd Pain Referrals: Anthony Vang MD [Primary Care Provider] -
--- NOTE | 2018-02-13 08:04 | ED.DEP ---
ED Disposition - Plan for ED Patient: Chief Complaint: Abd Pain Instructions: ED Abdominal Pain Unkn Cause Prescriptions: Ondansetron [Zofran Odt] 4 mg PO Q8H PRN PRN #10 tablet PRN Reason: Nausea Dicyclomine HCl [Bentyl] 20 mg PO TIDAC #20 capsule Referrals: Anthony Vang MD [Primary Care Provider] -
[2018-02-13 08:09] VITALS: BP 125/66; PULSE 72; RESP 15; O2SAT 98
[2018-02-13 08:16] VITALS: PULSE 84; RESP 15; O2SAT 97
== END 2018-02-13 08:16 | disposition home or self-care (01) ==
PROVIDERS: Emergency Provider Emergency Medicine; Family Provider Family Medicine; PCP Family Medicine
DX: R10.32 Left lower quadrant pain (principal); I10 Essential (primary) hypertension; Z79.899 Other long term (current) drug therapy
CPT/HCPCS: 74176; 99284

== ENCOUNTER 2018-02-18 14:30 | Outpatient (RCR) | payer MEDICARE, SELFPAY ==
[2018-02-05 01:31] VITALS: BP 130/73; PULSE 75; RESP 18; TEMP 36.9
[2018-02-18 15:05] VITALS: BP 118/7; PULSE 67; RESP 20; TEMP 36.7
--- NOTE | 2018-02-18 19:10 | PN.PCM_ITS ---
(1) Ulcer of right lower extremity with fat layer exposed Status: Chronic Current Visit: Yes Code(s): L97.912 - Non-pressure chronic ulcer of unspecified part of right lower leg with fat layer exposed (2) Venous insufficiency of both lower extremities Status: Chronic Current Visit: Yes Code(s): I87.2 - Venous insufficiency ( chronic) (peripheral) (3) Noncompliance Status: Chronic Current Visit: Yes Code(s): Z91.19 - Patient's noncompliance with other medical treatment and regimen (4) Edema of both legs Status: Chronic Current Visit: No Code(s): R60.0 - Localized edema (5) Ulcer of left lower leg Status: Acute Current Visit: Yes Qualifiers: Non-pressure ulcer stage: limited to breakdown of skin Qualified Code(s): L97.921 - Non-pressure chronic ulcer of unspecified part of left lower leg limited to breakdown of skin Code(s): L97.929 - Non-pressure chronic ulcer of unspecified part of left lower leg with unspecified severity (6) Mental deficiency Status: Chronic Current Visit: Yes Code(s): F79 - Unspecified intellectual disabilities Type of Wound Date of Service: 02/18/18 Chief Complaint: Ulceration of the right lateral LE and medial LE and cluster of ulcerations of the left distal lower extremity; bilateral lower extremity swelling and edema; resolving cellulitis of b/l LE History of Wound: This is a developmentally disabled 57-year-old male who presented with ulcerations of both lower extremities. These have been present for several weeks but have gotten worse in the las week. He was recently in the hospital and given IV antibiotics for treatment of his cellulitis. The patient is a former patient at the [facility], treated for similar problems in the past. The patient sleeps in a recliner, and spends long hours each day and a sitting position. He has been advised to elevate his lower extremities to heart level, or higher. However, he is noncompliant, and resolutely refuses to do so. He lives with his father, who confirms his son's noncompliance, and indicates his inability to convince his son into applying with recommended measures. He is seen here with his sister today. Patient has failed to elevate his lower extremities, spends long hours each day in a sitting position, and has not been wearing his compression stockings, as formerly recommended. He presented with bilateral lower extremity swelling and edema, bilateral lower extremity ulcerations, and cellulitis of both LE. The patient spends most of his day sitting around, watching TV. The patient is communicative, but is obviously developmentally disabled and with a diminished IQ. The patient has undergone a venous duplex examination 12/29/17 which is completely normal. There is no evidence of superficial venous incompetence or DVT. The patient's noninvasive lower extremity arterial study completed in March 2017 is also normal, with triphasic waveforms at ankle level bilaterally, and normal ankle?brachial indices bilaterally. His sister reports that he has not been showering and wears his clothes for weeks without changing them. He has been using silvadene to his wounds. Home Health has been consulted to assist in dressing changes. Progress of Wound: He tolerated compression with 3M wraps but did not like them. His wounds are healed but he arrived not wearing any compression today. He denies fever or chills. - Physical Exam Vital Signs Temp Pulse Resp BP 98.1 F 67 20 H 118/7 L 02/18/18 15:05 02/18/18 15:05 02/18/18 15:05 02/18/18 15:05 General: Alert, Oriented x3, Cooperative, No apparent distress HEENT: Atraumatic, Normocephalic Oral: Moist Mucosa Abdomen: Obese Extremities: Edema Skin: Ulcer/ Wound Wound Measurements and Assessment WC - Nurse 1 - General Ulcer Measurement Start: 02/18/18 15:05 Freq: Status: Active Protocol: Activity Type Activity Date Activity User E-Sign Co-Sign Detail Recorded Client Recorded Date Recorded By Document 02/18/18 15:05 [email or web address] [id number] 02/18/18 15:23 TYREL 02/18/18 15:05 Wound Center Nurse 1 [Ulcer Assessment] #10 left lower araujo -Combined with other wound No -Current Size (cm) - Length 0.1 -Current Size (cm) - Width 0.1 -Current Size (cm) - Depth 0.1 -Total Square Cm 0.01 -Date of Last Picture (Recall this 02/18/18 field) -Photo Taken Yes -Epithelialization Large 67-100% -Tunneling No -Undermining/Tunneling No -Circular Undermining No -Classification - Thickness Partial Thickness -Exudate Amt Small (1-33%) -Wound Margin Indistinct, Non -Visible -Granulation Amt None Present (0 %) -Granulation Quality N/A -Slough/Fibrin No -Necrosis Amt None Present (0 %) -Structure Exposed N/A -Texture (Kathleen-wound Skin Appearance) Assessed Friable -Moisture (Kathleen-wound Skin Appearance No Abnormality ) -Color (Kathleen-wound Skin Appearance) Assessed Erythema -Temperature (Kathleen-wound Skin No Abnormality Appearance) (Pt Warm) -Tenderness on Palpation (Kathleen-wound No Skin Appearance) -Ulcer Cleansing DYNAHEX SOAP -Foul Odor after Cleansing No #8 RLE Lat Cluster -Combined with other wound No -Current Size (cm) - Length 0.1 -Current Size (cm) - Width 0.1 -Current Size (cm) - Depth 0.1 -Total Square Cm 0.01 -Date of Last Picture (Recall this 02/18/18 field) -Photo Taken Yes -Epithelialization Large 67-100% -Tunneling No -Undermining/Tunneling No -Circular Undermining No -Classification - Thickness Partial Thickness -Exudate Amt None Present (0 %) -Wound Margin Indistinct, Non -Visible -Granulation Amt None Present (0 %) -Granulation Quality N/A -Slough/Fibrin No -Necrosis Amt None Present (0 %) -Necrotic Tissue Type Eschar -Structure Exposed None/Limited to Skin Breakdown -Texture (Kathleen-wound Skin Appearance) Assessed Friable -Moisture (Kathleen-wound Skin Appearance No Abnormality ) -Color (Kathleen-wound Skin Appearance) Assessed Erythema -Temperature (Kathleen-wound Skin No Abnormality Appearance) (Pt Warm) -Tenderness on Palpation (Kathleen-wound No Skin Appearance) -Ulcer Cleansing DYNAHEX SOAP -Foul Odor after Cleansing No [Edema Assessment] -Lower Limb Edema Present Yes -Right Calf (cm) 42.0 -Right Ankle (cm) 25.0 -Left Calf (cm) 42.5 -Left Ankle (cm) 23.8 WC - Nurse 2 - General Ulcer CM Notes Start: 02/18/18 15:05 Freq: Status: Active Protocol: Activity Type Activity Date Activity User E-Sign Co-Sign Detail Recorded Client Recorded Date Recorded By Document 02/18/18 16:03 TM [id number] 02/18/18 16:09 02/18/18 16:03 Wound Center Nurse 2 [Procedure/Treatment] #10 left lower araujo -Time 16:07 -Correct Patient Yes -Correct Side, Site, Position Yes -Correct Procedure Yes -Procedure Performed Yes -Post Debridement Size (cm) - Length 0 -Post Debridement Size (cm) - Width 0 -Post Debridement Size (cm) - Depth 0 -Total Square Cm 0 -Wound/Ulcer Outcome Healed- Epithelialized -Ulcer Cleansing Rinsed/ Irrigated with Saline -Foul Odor after Cleansing No -Bleeding Controlled with Pressure -Treatment Response Procedure Tolerated Well #8 RLE Lat Cluster -Time 16:07 -Correct Patient Yes -Correct Side, Site, Position Yes -Correct Procedure Yes -Procedure Performed Yes -Post Debridement Size (cm) - Length 0 -Post Debridement Size (cm) - Width 0 -Post Debridement Size (cm) - Depth 0 -Total Square Cm 0 -Wound/Ulcer Outcome Healed- Epithelialized -Ulcer Cleansing Rinsed/ Irrigated with Saline -Foul Odor after Cleansing No -Bioengineered Tissue No -Bleeding Controlled with NA -Treatment Response Procedure Tolerated Well [See Physician Procedure note for Specifics] Pain Scale: 0-10 Numeric [Pain] -Is Patient Pain Free? Yes Psych/Mental Status: Normal Affect, Appropriate Debridement Note Post-Debridement Measurements/Treatment WC - Nurse 2 - General Ulcer CM Notes Start: 02/18/18 15:05 Freq: Status: Active Protocol: Activity Type Activity Date Activity User E-Sign Co-Sign Detail Recorded Client Recorded Date Recorded By Document 02/18/18 16:03 [id number] 02/18/18 16:09 02/18/18 16:03 Wound Center Nurse 2 #10 left lower araujo -Time 16:07 -Correct Patient Yes -Correct Side, Site, Position Yes -Correct Procedure Yes -Procedure Performed Yes -Post Debridement Size (cm) - Length 0 -Post Debridement Size (cm) - Width 0 -Post Debridement Size (cm) - Depth 0 -Total Square Cm 0 -Wound/Ulcer Outcome Healed- Epithelialized -Ulcer Cleansing Rinsed/ Irrigated with Saline -Foul Odor after Cleansing No -Bleeding Controlled with Pressure -Treatment Response Procedure Tolerated Well #8 RLE Lat Cluster -Time 16:07 -Correct Patient Yes -Correct Side, Site, Position Yes -Correct Procedure Yes -Procedure Performed Yes -Post Debridement Size (cm) - Length 0 -Post Debridement Size (cm) - Width 0 -Post Debridement Size (cm) - Depth 0 -Total Square Cm 0 -Wound/Ulcer Outcome Healed- Epithelialized -Ulcer Cleansing Rinsed/ Irrigated with Saline -Foul Odor after Cleansing No -Bioengineered Tissue No -Bleeding Controlled with NA -Treatment Response Procedure Tolerated Well Pain Scale: 0-10 Numeric Is Patient Pain Free? Yes Wound debrided: left lower araujo Laterality: Left No debridement was completed today - wound is healed - Additional Wound Wound debrided: right LE lateral cluster Laterality: Right Operative Diagnosis: no debridement completed as it is healed Assessment/Plan Active Problems Ulcer of right lower extremity with fat layer exposed (Chronic) Venous insufficiency of both lower extremities (Chronic) Noncompliance (Chronic) Ulcer of left lower leg (Acute) Mental deficiency (Chronic) Assessment: This is a 57-year-old developmentally/intellectually disabled male who presents with venous ulcers of his b/l LE. Plan: Josias's wounds are healed. He is noncompliant with compression. Urged him to wear tubigrips for compression and elevated his legs as much as possible. Also, encouraged him to avoid scratching and picking his legs. He has been instructed to elevate his lower extremities as much as possible, even during daytime hours. Activity has been encouraged. Patient has been advised to elevate his lower extremities to heart level as much as possible. He has been advised to refrain from prolonged idle sitting. Despite these recommendations, the patient is poorly compliant, and his cognitive disability appears to be an impediment to his compliance with recommended measures. He will continue to develop wounds unless he is more compliant with compression therapy. He is discharged with follow up as needed.
== END 2018-03-06 23:59 ==
LOC: WC 14:30
PROVIDERS: Family Provider Family Medicine; PCP Family Medicine; Visit Provider Family Medicine
DX: Z09 Encounter for follow-up examination after completed treatment for conditions other than malignant neoplasm (principal); I87.2 Venous insufficiency (chronic) (peripheral); Z91.19 Patient's noncompliance with other medical treatment and regimen; R60.0 Localized edema; F79 Unspecified intellectual disabilities
CPT/HCPCS: 99213; G0463

== ENCOUNTER 2018-04-27 08:55 | Emergency (ER) | payer MEDICARE, SELFPAY ==
[2018-04-27 08:56] VITALS: BP 146/79; PULSE 89; RESP 18; TEMP 36.6; O2SAT 98; BMI 36.5
--- NOTE | 2018-04-27 09:48 | ED.DCSUM_ITS ---
- ER Visit Summary Date of Service: 04/27/18 Chief Complaint: [] Bilateral lower extremity cellulitis History of Present Illness: The patient is a 58 M [] developmental delay chronic lower extremity cellulitis leave him picking at his skin scabs, per the family for weeks he has been picking at lower extremity skin scabs he now has what appears to be cellulitis with redness of the extremities he has been seen in the past at the wound care center. His health is otherwise been good he has had no fever no cough no vomiting the family is able to manage and care for him he has no diabetes or history of MRSA he is usually treated with Bactrim Physical Examination: [] His vital signs are within normal range 146/79, General, no distress resting comfortably HEENT is generally unremarkable The neck is supple no adenopathy Cardiovascular, regular rate and rhythm Lungs, clear bilateral Abdomen, soft nontender Extremities, he has scattered scales across the anterior shins bilaterally he has surrounding redness over the anterior shins, with some clear drainage from the extremities., He has no lymphangitic streaking, there is no subcu air crepitance, he has intact pulses and sensation to his toes he has full range of motion of his ankles and his feet, he has scattered skin tears and scabs scattered skin cares and tabs to the forehead and the hand Neurologic, awake alert answering questions appropriately moving all 4 extremities Test Results: [] Emergency Department Course and Treatment: [] Discussed with the patient and his [id number] 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 At this time then at the request we will defer ED workup and labs we will provide wound care, Bactrim DS and [id number] knows how to manage the wounds and will have him follow-up with the wound care center and return for change in symptoms Treatment Plan: [] Disposition: [] Home stable declined ED workup Impression: [] Bilateral lower extremity cellulitis This note was generated with [email or web address] dictation software. It may contain incorrect words, spelling, and punctuation that were not noted in review of the chart prior to signing ED Disposition - Plan for ED Patient: Chief Complaint: Cellulitis Referrals: Anthony Vang MD [Primary Care Provider] -
--- NOTE | 2018-04-27 09:59 | ED.DEP ---
ED Disposition - Plan for ED Patient: Chief Complaint: Cellulitis Instructions: Discharge Instructions for Cellulitis Prescriptions: Smz/Tmp Ds [Bactrim Ds] 1 tab PO BID #14 tab Referrals: Anthony Vang MD [Primary Care Provider] -
[2018-04-27] MEDS: Smz/Tmp Ds Tablet 1 TABLET PO (10:47)
== END 2018-04-27 11:03 | disposition home or self-care (01) ==
LOC: ED 10:15
PROVIDERS: Emergency Provider Emergency Medicine; Family Provider Family Medicine; PCP Family Medicine
DX: L03.115 Cellulitis of right lower limb (principal); L03.116 Cellulitis of left lower limb; Z79.899 Other long term (current) drug therapy
CPT/HCPCS: 99283

== ENCOUNTER 2018-05-05 09:15 | Outpatient (RCR) | payer MEDICARE, SELFPAY ==
[2018-05-05 11:13] VITALS: BP 140/70; PULSE 81; RESP 20; TEMP 36.5; BMI 36.5
--- NOTE | 2018-05-05 13:02 | HP.PCM_ITS ---
(1) Ulcer of left lower extremity with fat layer exposed Status: Acute Current Visit: Yes Code(s): L97.922 - Non-pressure chronic ulcer of unspecified part of left lower leg with fat layer exposed (2) Ulcer of right lower extremity with fat layer exposed Status: Chronic Current Visit: Yes Code(s): L97.912 - Non-pressure chronic ulcer of unspecified part of right lower leg with fat layer exposed (3) Venous insufficiency of both lower extremities Status: Chronic Current Visit: Yes Code(s): I87.2 - Venous insufficiency (chronic) (peripheral) (4) Stasis dermatitis of both legs Status: Acute Current Visit: Yes Code(s): I87.2 - Venous insufficiency (chronic) (peripheral) History of Present Illness Date of Service: 05/05/18 Chief Complaint: Recurrent bilateral lower extremity ulcers. History of Wound: Mr. Alonso is a 58-year-old well-known to the wound center with a history of bilateral lower extremity edema and recurrent lower extremity ulcers. Patient also has some intellectual disability. He was last seen in and now returns with bilateral but predominantly left lower extremity wounds/ulcers. Patient admits to picking a lot at his legs. He was seen in the emergency room and started on antibiotics for suspected cellulitis. He was subsequently seen by his primary care physician who referred him here. He denies significant pain in his lower extremities. He also denies any significant discharge, chills, fever or otherwise feeling of unwell. Past Medical History Past Medical History: Chronic Problems Ulcer of right lower extremity with fat layer exposed (Chronic) Venous insufficiency of both lower extremities (Chronic) Noncompliance (Chronic) Leg swelling (Chronic) Edema of both legs (Chronic) Cellulitis of both lower extremities (Chronic) Mental deficiency (Chronic) HTN (hypertension) (Chronic) Surgical History: tonsillectomy Allergies/Adverse Reactions: Allergies No Known Allergies Allergy (Verified 05/05/18 11:38) Home Medications: Ambulatory Orders Medication Instructions Recorded RX: Lisinopril [Zestril] 10 mg PO DAILY 12/15/16 Smz/Tmp Ds [Bactrim Ds] 1 tab PO BID #14 tab 04/27/18 RX: Cephalexin [Keflex] TID 05/05/18 - Family History Maternal Diabetes, - - History of cardiac disease Paternal - - No heart disease. Patient's father is alive, aged 90, and healthy. Smoking Status: Never smoker Review of Systems Constitutional: Denies: Anorexia, Chills, Fever Eyes: Denies: Blurred vision, Pain, Redness HEENT: Denies: Difficulty Swallowing Cardiovascular: Denies: Chest Pain, Chest Pressure Respiratory: Denies: Cough, Hemoptysis Gastrointestinal: Denies: Abdominal Pain, Hematemesis, Vomiting Skin: Denies: Jaundice - Physical Exam Vital Signs Temp Pulse Resp BP 97.7 F L 81 20 H 140/70 H 05/05/18 11:13 05/05/18 11:13 05/05/18 11:13 05/05/18 11:13 General: Alert, Cooperative, No apparent distress HEENT: Atraumatic, Normocephalic Oral: Moist Mucosa Neck: Supple Lungs: Normal air movement Cardiovascular: Regular rate, Regular Rhythm, Normal S1, Normal S2 Abdomen: Non Tender, Obese Extremities: No cyanosis, Edema Skin: Ulcer/ Wound Wound Measurements and Assessment WC - Nurse 1 - General Ulcer Measurement Start: 05/05/18 11:12 Freq: Status: Active Protocol: Activity Type Activity Date Activity User E-Sign Co-Sign Detail Recorded Client Recorded Date Recorded By Document 05/05/18 11:13 DL [id number] 05/05/18 11:35 DL 05/05/18 11:13 Wound Center Nurse 1 [Ulcer Assessment] #12 L Med Cluster -Current Size (cm) - Length 8.8 -Current Size (cm) - Width 4 -Current Size (cm) - Depth 0.1 -Total Square Cm 35.2 -Photo Taken Yes -Exudate Amt Medium (34-66%) -Exudate Type Serosanguineous -Wound Margin Indistinct, Non -Visible -Granulation Amt Medium (34-66%) -Granulation Quality [place] Red -Necrosis Amt Medium (34-66%) -Necrotic Tissue Type Adherent Slough -Structure Exposed N/A -Texture (Kathleen-wound Skin Appearance) Excoriation Localized Edema Scarring -Moisture (Kathleen-wound Skin Appearance Dry/Scaly ) -Color (Kathleen-wound Skin Appearance) Erythema Hemosiderin Staining -Temperature (Kathleen-wound Skin No Abnormality Appearance) (Pt Warm) -Tenderness on Palpation (Kathleen-wound No Skin Appearance) -Ulcer Cleansing Wound Cleanser -Foul Odor after Cleansing No -Anesthetic Used 4% Lidocaine Solution #11 L Lat Cluster -Current Size (cm) - Length 11 -Current Size (cm) - Width 4.3 -Current Size (cm) - Depth 0.1 -Total Square Cm 47.3 -Photo Taken Yes -Exudate Amt Medium (34-66%) -Exudate Type Serosanguineous -Wound Margin Indistinct, Non -Visible -Granulation Amt Medium (34-66%) -Granulation Quality [place] Red -Necrosis Amt Medium (34-66%) -Necrotic Tissue Type Adherent Slough -Structure Exposed N/A -Texture (Kathleen-wound Skin Appearance) Excoriation Localized Edema -Moisture (Kathleen-wound Skin Appearance Dry/Scaly ) -Color (Kathleen-wound Skin Appearance) Erythema Hemosiderin Staining -Temperature (Kathleen-wound Skin No Abnormality Appearance) (Pt Warm) -Ulcer Cleansing Wound Cleanser -Foul Odor after Cleansing No -Anesthetic Used 4% Lidocaine Solution [Edema Assessment] -Right Calf (cm) 44 -Right Ankle (cm) 23.5 -Left Calf (cm) 43.2 -Left Ankle (cm) 23.5 WC - Nurse 2 - General Ulcer CM Notes Start: 05/05/18 11:12 Freq: Status: Active Protocol: Activity Type Activity Date Activity User E-Sign Co-Sign Detail Recorded Client Recorded Date Recorded By Document 05/05/18 12:03 MW [email or web address] 05/05/18 12:08 MW 05/05/18 12:03 Wound Center Nurse 2 [Procedure/Treatment] #12 L Med Cluster -Time 12:03 -Correct Patient Yes -Correct Side, Site, Position Yes -Correct Procedure Yes -Procedure Performed No -Post Debridement Size (cm) - Length 8.8 -Post Debridement Size (cm) - Width 4.0 -Post Debridement Size (cm) - Depth 0.1 -Total Square Cm 35.20 -Wound/Ulcer Outcome Not Healed -Ulcer Cleansing Not Cleansed -Foul Odor after Cleansing No -Bleeding Controlled with NA -Offloading No -Treatment Response Procedure Not Tolerated Well #11 L Lat Cluster -Time 12:04 -Correct Patient Yes -Correct Side, Site, Position Yes -Correct Procedure Yes -Procedure Performed No -Post Debridement Size (cm) - Length 11.0 -Post Debridement Size (cm) - Width 4.3 -Post Debridement Size (cm) - Depth 0.1 -Total Square Cm 47.30 -Wound/Ulcer Outcome Not Healed -Ulcer Cleansing Rinsed/ Irrigated with Saline -Foul Odor after Cleansing No -Bioengineered Tissue No -Bleeding Controlled with NA -Offloading No -Treatment Response Procedure Not Tolerated Well [See Physician Procedure note for Specifics] Pain Scale: 0-10 Numeric [Pain] -Is Patient Pain Free? Yes Musculoskeletal: No Muscle Wasting Neurological: Cranial nerves II-XII grossly intact Psych/Mental Status: Normal Affect Debridement Note Post-Debridement Measurements/Treatment WC - Nurse 2 - General Ulcer CM Notes Start: 05/05/18 11:12 Freq: Status: Active Protocol: Activity Type Activity Date Activity User E-Sign Co-Sign Detail Recorded Client Recorded Date Recorded By Document 05/05/18 12:03 MW [id number] 05/05/18 12:08 MW 05/05/18 12:03 Wound Center Nurse 2 #12 L Med Cluster -Time 12:03 -Correct Patient Yes -Correct Side, Site, Position Yes -Correct Procedure Yes -Procedure Performed No -Post Debridement Size (cm) - Length 8.8 -Post Debridement Size (cm) - Width 4.0 -Post Debridement Size (cm) - Depth 0.1 -Total Square Cm 35.20 -Wound/Ulcer Outcome Not Healed -Ulcer Cleansing Not Cleansed -Foul Odor after Cleansing No -Bleeding Controlled with NA -Offloading No -Treatment Response Procedure Not Tolerated Well #11 L Lat Cluster -Time 12:04 -Correct Patient Yes -Correct Side, Site, Position Yes -Correct Procedure Yes -Procedure Performed No -Post Debridement Size (cm) - Length 11.0 -Post Debridement Size (cm) - Width 4.3 -Post Debridement Size (cm) - Depth 0.1 -Total Square Cm 47.30 -Wound/Ulcer Outcome Not Healed -Ulcer Cleansing Rinsed/ Irrigated with Saline -Foul Odor after Cleansing No -Bioengineered Tissue No -Bleeding Controlled with NA -Offloading No -Treatment Response Procedure Not Tolerated Well Pain Scale: 0-10 Numeric Is Patient Pain Free? Yes No debridement was completed today Assessment/Plan Active Problems Ulcer of right lower extremity with fat layer exposed (Chronic) Venous insufficiency of both lower extremities (Chronic) Ulcer of left lower extremity with fat layer exposed (Acute) Stasis dermatitis of both legs (Acute) Assessment: Recurrent bilateral lower extremity ulcers/wound. Intellectual disability. Bilateral lower extremity edema. Stasis dermatitis. Plan: Patient presents again with bilateral lower extremity ulcers/wounds however predominantly of his left lower extremity. Some said to be worsened by picking and some as a result of his poorly controlled lower extremity swelling. No debridement was done today because patient declined. Fibracol with Adaptic over top to all open surfaces. Leave in place for a week. Loose 3M wraps. Patient is poorly compliant with other forms of compression. Follow-up on Wednesday or Wednesday with Dr. De Leon. Advised to elevate lower extremities when seated and in bed. Increased protein intake also recommended. Compliance was strongly encouraged. All his questions were answered and he was advised to call with any further questions or concerns. This note was generated with [email or web address] dictation software. It may contain incorrect words, spelling, and punctuation that were not noted in checking the note before signing.
--- OUTSIDE RECORDS SUMMARY | 2018-06-30 09:27 | XMS RPT_ITS ---
:1960 Author Organization OHIP Support Name Relationship Address Phone D Unavailable Unavailable Unavailable FORTE, LIU Unavailable [address] + [place] [address] D Unavailable Unavailable Unavailable FORTE, LIU Unavailable [address] + [place] [address] D Unavailable Unavailable Unavailable FORTE, LIU Unavailable [address] + [place] [address] D Unavailable Unavailable Unavailable FORTE, LIU Unavailable [address] + [place] [address] D Unavailable Unavailable Unavailable FORTE, LIU Unavailable [address] + [place] [address] D Unavailable Unavailable Unavailable FORTE, LIU Unavailable [address] + [place] [address] D Unavailable Unavailable Unavailable FORTE, LIU Unavailable [address] + [place] [address] D Unavailable Unavailable Unavailable FORTE, LIU Unavailable [address] + [place] [address] D Unavailable Unavailable Unavailable FORTE, LIU Unavailable [address] + [place] [address] D Unavailable Unavailable Unavailable FORTE, LIU Unavailable [address] + [place] [address] D Unavailable Unavailable Unavailable FORTE, LIU Unavailable [address] + [place] [address] D Unavailable Unavailable Unavailable FORTE, LIU Unavailable [address] + [place] [address] D Unavailable Unavailable Unavailable FORTE, LIU Unavailable [address] + [place] [address] D Unavailable Unavailable Unavailable FORTE, LIU Unavailable [address] + [place] [address] D Unavailable Unavailable Unavailable FORET, LIU Unavailable [address] + [place] [address] D Unavailable Unavailable Unavailable FORTE, LIU Unavailable [address] + [place] [address] D Unavailable Unavailable Unavailable FORTE, LIU Unavailable [address] + [place] [address] Care Team Providers Name Role Phone KB VANG) Attending Unavailable LINA WU (ETCHER APPRENTICE) Attending Unavailable KB VANG) Attending Unavailable LINA WU (ETCHER APPRENTICE) Referring Unavailable Fiorella Keating Attending Unavailable Allyson Keatingbe Referring Unavailable Denzel Espinosa Attending Unavailable [facility], [place]fredo Primary Care Unavailable [facility], Wilfredo Primary Care Unavailable Mario Thomas Attending Unavailable Rolando De Leon Attending Unavailable [place], Wilfredo Primary Care Unavailable Rolando De Leon Attending Unavailable [facility], Wilfredo Primary Care Unavailable [facility], Wilfredo Primary Care Unavailable Koram, Shreya Annie Admitting Unavailable [place]helfah, Ghasem Attending Unavailable Koram, Shreya Annie Admitting Unavailable Koram, Shreya Annie Attending Unavailable [facility], Wilfredo Primary Care Unavailable Koram, Shreya Annie Consulting Unavailable Koram, Shreya Annie Admitting Unavailable [place], Wilfredo Primary Care Unavailable [place], Ghasem Consulting Unavailable [place], Ghasem Attending Unavailable Koram, Shreya Annie Admitting Unavailable [place], Wilfredo Primary Care Unavailable [place]ah, Ghasem Consulting Unavailable [place], Ghasem Attending Unavailable Nydia Sr Attending Unavailable Bursley, Anthony Primary Care Unavailable Man, Yvette AV SPECIALIST-C Consulting Unavailable Nydia Sr Attending Unavailable Bursley, Anthony Primary Care Unavailable Man, Yvette AV SPECIALIST-C Consulting Unavailable Nydia Sr Attending Unavailable Bursley, Anthony Primary Care Unavailable Man, Yvette AV SPECIALIST-C Consulting Unavailable Bursley, Anthony Primary Care Unavailable Melanie Vaughn Attending Unavailable Nydia Sr Attending [facility] Unavailable Yvette Man AV SPECIALIST-C Consulting Unavailable Ciera, Anthony Primary Care Unavailable Mario Thomas Attending Unavailable Ciera, Anthony Primary Care Unavailable Rolando De Leon Attending Unavailable Rolando De Leon Attending Unavailable Anthony Vang Primary Care Unavailable PROBLEMS PROBLEMS DATE TYPE CONDITION / CODE ATTENDING STATUS SOURCE 05/17/2018 Unknown L97.922 - Fiorella Keating Active [place] [facility] chronic ulcer of Hospital unspecified part of Repository left lower leg with fat layer exposed / L97.922(ICD-10) 05/17/2018 Unknown [facility] [place] [facility] chronic ulcer of Hospital unspecified part of Repository right lower leg with fat layer exposed / L97.912(ICD-10) 05/17/2018 Unknown I87.2 - Venous [facility] [place] insufficiency Community (chronic) Hospital (peripheral) / Repository I87.2(ICD-10) 05/03/2018 Active Cellulitis of Richie VANG [place] unspecified part of [facility] Main limb / (MD) [place] L03.119(ICD-10) Repository PROCEDURES PROCEDURES No Procedure Records FoundRESULTS RESULTS WOUND CTR HISTORY Observed: 05/10/2018 Status: F Source: [place] [facility] 10:56 AM [facility] REPOSITORY [facility] W[facility]aling Center [address] [place] [id number] Wound Ctr History AND Physical 05/10/18 1039 MR#: [id number] Acct: [id number] Name: ALLEY FORTE Rep #: [id number] : 1960 58 From: Rolando De Leon MD PCP: Anthony Vang MD Status: REG RCR Y Location: WC (1) Ulcer of right lower extremity with fat layer exposed Status: Chronic Current Visit: Yes Code(s): L97.912 - Non-pressure chronic ulcer of unspecified part of right lower leg with fat layer exposed (2) Venous insufficiency of both lower extremities Status: Chronic Current Visit: Yes Code(s): I87.2 - Venous insufficiency (chronic) (peripheral) (3) Ulcer of left lower extremity with fat layer exposed Status: Acute Current Visit: Yes Code(s): L97.922 - Non- pressure chronic ulcer of unspecified part of left lower leg with fat layer exposed (4) Stasis dermatitis of both legs Status: Acute Current Visit: Yes Code(s): I87.2 - Venous insufficiency (chronic) (peripheral) (5) Ulcer of right calf Status: Resolved Current Visit: Yes Qualifiers: Non-pressure ulcer stage: with fat layer exposed Code(s): L97.219 - Non-pressure chronic ulcer of right calf with unspecified severity (6) Noncompliance Status: Chronic Current Visit: Yes Code(s): Z91.19 - Patient's noncompliance with other medical treatment and regimen (7) Leg swelling Status: Chronic Current Visit: Yes Code(s): M79.89 - Other specified soft tissue disorders (8) Edema of both legs Status: Chronic Current Visit: Yes Code(s): R60.0 - Localized edema (9) Ulcer of left lower leg Status: Acute Current Visit: Yes Qualifiers: Non-pressure ulcer stage: with fat layer exposed Qualified Code(s): L97.922 - Non-pressure chronic ulcer of unspecified part of left lower leg with fat layer exposed Code(s): L97.929 - Non-pressure chronic ulcer of unspecified part of left lower leg with unspecified severity (10) Mental deficiency Status: Chronic Current Visit: Yes Code(s): F79 - Unspecified intellectual disabilities (11) HTN (hypertension) Status: Chronic Current Visit: No Qualifiers: Code(s): I10 - Essential (primary) hypertension History of Present Illness Chief Complaint: Recurrent bilateral lower extremity ulcers. History of Wound: Mr. Forte is a 58-year-old well-known to the Wound Center with a history of bilateral lower extremity edema and recurrent lower extremity ulcers, thought to be venous in origin. The patient is also known to pick at his wounds/serrations. The patient also has some intellectual disability. He was last seen in January/February and now returns with bilateral but predominantly left lower extremity wounds/ulcers. Patient admits to picking a lot at his legs. He was seen in the Emergency Room and started on antibiotics for suspected cellulitis. He was subsequently seen by his primary care physician who referred him here. He denies significant pain in his lower extremities. He also denies any significant discharge, chills, fever or otherwise feeling of unwell. The patient has a history of noncompliance. A noninvasive lower extremity arterial study performed approximately 1 year ago revealed no evidence of arterial occlusive disease. Past Medical History Past Medical History: Chronic Problems Ulcer of right lower extremity with fat layer exposed (Chronic) Venous insufficiency of both lower extremities (Chronic) Noncompliance (Chronic) Leg swelling (Chronic) Edema of both legs (Chronic) Cellulitis of both lower extremities (Chronic) Mental deficiency (Chronic) HTN (hypertension) (Chronic) Surgical History: tonsillectomy Allergies/Adverse Reactions: Allergies No Known Allergies Allergy (Verified 05/05/18 11:38) Home Medications: Ambulatory Orders Medication Instructions Recorded Lisinopril [Zestril] 10 mg PO DAILY 12/15/16 Smz/Tmp Ds [Bactrim Ds] 1 tab PO BID #14 tab 04/27/18 Cephalexin [Keflex] TID 05/05/18 - Family History Paternal - - No heart disease. Patient's father is alive, aged 90, and healthy. Maternal Diabetes, - - History of cardiac disease Lives: With Family Smoking Status: Never smoker Tobacco Use: Non-smoker Alcohol: None Drugs: None Review of Systems Constitutional: Denies: Chills, Fever, Weight Change Eyes: Denies: Pain, Vision Change HEENT: Denies: Difficulty Hearing, Difficulty Swallowing, Sinus Congestion Cardiovascular: Denies: Chest Pain, Palpitations Respiratory: Denies: Cough, Shortness of Breath Gastrointestinal: Denies: Diarrhea, Nausea, Vomiting Genitourinary: Denies: Dysuria, Hematuria Endocrine: Denies: Heat/ Cold Intolerance, Polydipsia, Polyuria Hematologic/ Lymphatic: Denies: Easy Bruising, Easy Bleeding - Physical Exam Vital Signs Temp Pulse Resp BP 97.5 F L 83 18 133/65 H 05/10/18 10:00 05/10/18 10:00 05/10/18 10:00 05/10/18 10:00 General: Alert, Oriented x3, Cooperative, No apparent distress, Well developed, Well nourished, - - This patient suffers from moderate cognitive impairment. He is communicative, and appropriate. He is cooperative. HEENT: Atraumatic, PERRLA, EOMI, Normocephalic Oral: Moist Mucosa Neck: No JVD, Negative Carotid Bruits, No Nodes, No Nuchal Rigidity, Trachea Midline Lungs: Clear to auscultation, Normal air movement, No rhonchi, No wheeze, No rales Cardiovascular: Regular rate, Regular Rhythm, Normal S1, Normal S2, No murmurs Abdomen: Soft, Non Tender, Non-Distended Extremities: No clubbing, No cyanosis, No Calf Tenderness, - - Mild bilateral lower extremity swelling and edema is noted. Diffuse erythema is noted bilaterally, thought to be inflammatory rather than cellulitic. Multiple small, superficial ulcerations are noted bilaterally in the calves, more prominent in the left lower extremity. There is a moderate amount of bioburden, particularly involving the ulcerations on the left. Dimensions are documented elsewhere. Wound Measurements and Assessment WC - Nurse 1 - General Ulcer Measurement Start: 05/10/18 09:59 Freq: Status: Active Protocol: Activity Type Activity Date Activity User E-Sign Co-Sign Detail Recorded Client Recorded Date Recorded By Document 05/10/18 10:00 [id number] 05/10/18 10:10 Wound Center Nurse 1 [Ulcer Assessment] Neurological: Cranial nerves II-XII grossly intact, - - Cognitive impairment is apparent. Psych/Mental Status: Appropriate, Impulsive, - - The patient demonstrates a moderate cognitive impairment, but is communicative and cooperative. Debridement Note Laterality: Left - Calf Type of Debridement: Excisional debridement Anesthesia Used: 5% Lidocaine Gel Depth: Down to and including healthy tissue, in the subcutaneous layer Percentage of wound debrided: 50 Instrument Used: 3mm curette Severity: Fat Layer Exposed Amount of bleeding with debridement: Mild Bleeding Controlled with: Compression and gauze Patient tolerated procedure well - The patient tolerated the debridement, but was not cooperative with the debridement. He seemed to resist, perhaps in part due to mild discomfort, but seemingly for other reasons as well. Assessment/Plan Active Problems Ulcer of right lower extremity with fat layer exposed (Chronic) Venous insufficiency of both lower extremities (Chronic) Ulcer of left lower extremity with fat layer exposed (Acute) Stasis dermatitis of both legs (Acute) Noncompliance (Chronic) Leg swelling (Chronic) Edema of both legs (Chronic) Ulcer of left lower leg (Acute) Mental deficiency (Chronic) Assessment: Recurrent bilateral lower extremity ulcers/wound. Intellectual disability. Bilateral lower extremity edema. Stasis dermatitis. Chronic venous insufficiency. Plan: We are to implement the use of compression by means of Unna boots, which will be applied to the lower extremities bilaterally. These will be changed twice weekly. The boots appear appropriate relative to the patient's presenting manifestations, there will also serve as a barrier to picking and manual interference on the patient's part. He has been advised to elevate his lower extremities as much as possible, and to avoid prolonged idle sitting. However, given his diminished cognitive state, compliance with recommended measures is doubtful. Patient is return in 1-2 weeks for reevaluation. Increased protein intake also recommended. Compliance was strongly encouraged. All his questions were answered and he was advised to call with any further questions or concerns. Influenza vaccine was not administered today. The patient is not a smoker. He is 32.2, which places the patient in a an obese class I category. Weight loss has been recommended, and collaboration with the patient's primary care physician has been advised. This note was generated with [employer] dictation software. It may contain incorrect words, spelling, and punctuation that were not noted in checking the note before signing. 05/10/18 1056 <Electronically signed by Rolando De Leon MD> Date Rolando De Leon MD CC: Signed WOUND CTR HISTORY Observed: 05/06/2018 Status: F Source: [place] [facility] 1:32 PM [facility] REPOSITORY [facility] Wound Healing Center [address] [place] [id number] Wound Ctr History AND Physical 05/05/18 1258 MR#: [id number] Acct: [id number] Name: ALLEY FORTE Rep #: [id number] : 1960 58 From: Fiorella Keating MD PCP: Anthony Vang MD Status: REG RCR Y Location: WC (1) Ulcer of left lower extremity with fat layer exposed Status: Acute Current Visit: Yes Code(s): L97.922 - Non- pressure chronic ulcer of unspecified part of left lower leg with fat layer exposed (2) Ulcer of right lower extremity with fat layer exposed Status: Chronic Current Visit: Yes Code(s): L97.912 - Non-pressure chronic ulcer of unspecified part of right lower leg with fat layer exposed (3) Venous insufficiency of both lower extremities Status: Chronic Current Visit: Yes Code(s): I87.2 - Venous insufficiency (chronic) (peripheral) (4) Stasis dermatitis of both legs Status: Acute Current Visit: Yes Code(s): I87.2 - Venous insufficiency (chronic) (peripheral) History of Present Illness Date of Service: 05/05/18 Chief Complaint: Recurrent bilateral lower extremity ulcers. History of Wound: Mr. Forte is a 58-year-old well-known to the wound center with a history of bilateral lower extremity edema and recurrent lower extremity ulcers. Patient also has some intellectual disability. He was last seen in January/February and now returns with bilateral but predominantly left lower extremity wounds/ulcers. Patient admits to picking a lot at his legs. He was seen in the emergency room and started on antibiotics for suspected cellulitis. He was subsequently seen by his primary care physician who referred him here. He denies significant pain in his lower extremities. He also denies any significant discharge, chills, fever or otherwise feeling of unwell. Past Medical History Past Medical History: Chronic Problems Ulcer of right lower extremity with fat layer exposed (Chronic) Venous insufficiency of both lower extremities (Chronic) Noncompliance (Chronic) Leg swelling (Chronic) Edema of both legs (Chronic) Cellulitis of both lower extremities (Chronic) Mental deficiency (Chronic) HTN (hypertension) (Chronic) Surgical History: tonsillectomy Allergies/Adverse Reactions: Allergies No Known Allergies Allergy (Verified 05/05/18 11:38) Home Medications: Ambulatory Orders Medication Instructions Recorded RX: Lisinopril [Zestril] 10 mg PO DAILY 12/15/16 Smz/Tmp Ds [Bactrim Ds] 1 tab PO BID #14 tab 04/27/18 RX: Cephalexin [Keflex] TID 05/05/18 - Family History Maternal Diabetes, - - History of cardiac disease Paternal - - No heart disease. Patient's father is alive, aged 90, and healthy. Smoking Status: Never smoker Review of Systems Constitutional: Denies: Anorexia, Chills, Fever Eyes: Denies: Blurred vision, Pain, Redness HEENT: Denies: Difficulty Swallowing Cardiovascular: Denies: Chest Pain, Chest Pressure Respiratory: Denies: Cough, Hemoptysis Gastrointestinal: Denies: Abdominal Pain, Hematemesis, Vomiting Skin: Denies: Jaundice - Physical Exam Vital Signs Temp Pulse Resp BP 97.7 F L 81 20 H 140/70 H 05/05/18 11:13 05/05/18 11:13 05/05/18 11:13 05/05/18 11:13 General: Alert, Cooperative, No apparent distress HEENT: Atraumatic, Normocephalic Oral: Moist Mucosa Neck: Supple Lungs: Normal air movement Cardiovascular: Regular rate, Regular Rhythm, Normal S1, Normal S2 Abdomen: Non Tender, Obese Extremities: No cyanosis, Edema Skin: Ulcer/ Wound Wound Measurements and Assessment WC - Nurse 1 - General Ulcer Measurement Start: 05/05/18 11:12 Freq: Status: Active Protocol: Activity Type Activity Date Activity User E-Sign Co-Sign Detail Recorded Client Recorded Date Recorded By Document 05/05/18 11:13 DL [id number] 05/05/18 11:35 DL Wound Center Nurse 1 [Ulcer Assessment] #12 L Med Cluster -Current Size (cm) - Length 8.8 -Current Size (cm) - Width 4 -Current Size (cm) - Depth 0.1 WC - Nurse 2 - General Ulcer CM Notes Start: 05/05/18 11:12 Freq: Status: Active Protocol: Activity Type Activity Date Activity User E-Sign Co-Sign Detail Recorded Client Recorded Date Recorded By Document 05/05/18 12:03 MW [id number] 05/05/18 12:08 MW Wound Center Nurse 2 [Procedure/Treatment] #12 L Med Cluster -Time 12:03 Musculoskeletal: No Muscle Wasting Neurological: Cranial nerves II-XII grossly intact Psych/Mental Status: Normal Affect Debridement Note Post-Debridement Measurements/Treatment WC - Nurse 2 - General Ulcer CM Notes Start: 05/05/18 11:12 Freq: Status: Active Protocol: Activity Type Activity Date Activity User E-Sign Co-Sign Detail Recorded Client Recorded Date Recorded By Document 05/05/18 12:03 MW [id number] 05/05/18 12:08 MW Wound Center Nurse 2 #12 L Med Cluster -Time 12:03 -Correct Patient Yes -Correct Side, Site, Position Yes -Correct Procedure Yes -Procedure Performed No No debridement was completed today Assessment/Plan Active Problems Ulcer of right lower extremity with fat layer exposed (Chronic) Venous insufficiency of both lower extremities (Chronic) Ulcer of left lower extremity with fat layer exposed (Acute) Stasis dermatitis of both legs (Acute) Assessment: Recurrent bilateral lower extremity ulcers/wound. Intellectual disability. Bilateral lower extremity edema. Stasis dermatitis. Plan: Patient presents again with bilateral lower extremity ulcers/wounds however predominantly of his left lower extremity. Some said to be worsened by picking and some as a result of his poorly controlled lower extremity swelling. No debridement was done today because patient declined. Fibracol with Adaptic over top to all open surfaces. Leave in place for a week. Loose 3M wraps. Patient is poorly compliant with other forms of compression. Follow-up on Wednesday or Wednesday with Dr. De Leon. Advised to elevate lower extremities when seated and in bed. Increased protein intake also recommended. Compliance was strongly encouraged. All his questions were answered and he was advised to call with any further questions or concerns. This note was generated with [employer] dictation software. It may contain incorrect words, spelling, and punctuation that were not noted in checking the note before signing. 05/06/18 1332 <Electronically signed by Fiorella Keating MD> Date Fiorella Keating MD CC: Signed CNOV Observed: 05/03/2018 Status: COMPLETED Source: [place] 7:40 PM [facility] REPOSITORY Office Visit (FAMPWS) ALLEY FORTE ([id number]) 1960 M Date Time Provider Department 05/03/18 7:40 PM [facility], we recorded the following information about you: Temperature Pulse Respiration Blood pressure 98 degrees 76/minute 12/minute 118/78 Weight 108.4 kg Kb Vang MD 05/03/2018 7:48 PM Signed Chief Complaint Patient presents with: ED Follow-up HPI Alley Forte is a 58 year old male who presents here today for ER Follow Up. Accompanied today by brother Pb, patient's DPOA. Patient was seen at [facility] ED on 04/27 for bilateral lower extremity cellulitis caused by skin picking for weeks. Denied fever, chills, nausea, vomiting at the time. History of MRSA treated Successfully with Bactrim in the past. Exam showed surrounding erythema over anterior shins with some clear drainage. No lymphangitic streaking, no creptius, normal pulses. Started on Bactrim DS for 7 days and advised follow up with wound care where patient had been treated previously. Discussed case with sister in law who is cap sewer and she felt comfortable caring for him at home without IV fluids or further labs while in ED. Since discharge, erythema and lesions have not improved on bactrim. Taking BID as recommended without side effects. Sister in law wrapping patient's legs, but he is occasionally taking them off and picking at his legs as well as his face and fingers. Denies fever, chills, nausea, vomiting, increased pain. Has not yet followed up with wound care. Past medical history, appointments, medications, allergies reviewed. Previous Medical History PAST MEDICAL HISTORY Diagnosis Date - Developmental delay - Hypertension - Moderate anoxic ischemic brain damage in - Obesity (BMI 30-39.9) - Prediabetes Previous Surgical History PAST SURGICAL HISTORY Procedure Laterality Date - REMOVAL OF TONSILS,<11 Y/O Tonsillectomy-Dr. Vinson Family History FAMILY HISTORY Problem Relation Age of Onset - Cancer Father Skin-non melanoma - Heart Mother cardiomyopathy Patient Allergies ALLERGIES No Known Allergies Current Medications Current Outpatient Prescriptions on File Prior to Visit: lisinopril (ZESTRIL, PRINIVIL) 10 mg tablet Take 1 tablet by mouth once daily. mupirocin (BACTROBAN) 2 % ointment Apply 1 application to affected area three times daily. Location: legs (Patient not taking: Reported on 04/27/2018 ) Non-Adherent Bandage (TELFA) 2 X 3 bndg Apply over the silvadine cream. Change daily silver sulfADIAZINE (SILVADENE,THERMAZENE) 1 % cream Apply 1 application to affected area once daily. Apply to open area on the leg. Cover with a Telfa pad. (Patient not taking: Reported on 04/27/2018 ) COMPOUNDED PRESCRIPTION 4x4 gauze, 4 inch roll gauze, Bacitracin ointment large tubeChange dressing to leg ulcers (sepulveda) twice a dayEnough supplies for a month. No current facility-administered medications on file prior to visit. Social History Social History Marital status: Single Spouse name: Years of education: Number of children: Occupational History Occupation Employer Comment [employer] Social History Main Topics Smoking status: Never Smoker Smokeless tobacco: Never Used Alcohol use: No Drug use: No Sexual activity: No Social History Narrative Lives with father, mother . Watches TV mostly. Walks. Brother Huy has DPOA. Review of Symptoms REVIEW OF SYSTEMS See HPI EXAM: BP 118/78 Pulse 76 Temp 36.7 ?C (98 ?F) (Tympanic) Resp 12 Wt 108.4 kg (239 lb) BMI 37.43 kg/m? General Appearance: Well appearing, alert, in no acute distress, well-hydrated, well nourished.. Skin: circumferential erythema from knee to ankle with scattered crusting/scabbing, clear drainage, and several eraser sized open wounds from picking. Warm to touch, mild TTP, no streaking. . Lungs: lungs clear to auscultation. No wheezing, rhonchi, rales. Heart: RRR without murmur, gallop, or rubs. No ectopy. Health Maintenance List BP CONTROLLED (<130/80) due on 1977 HEPATITIS C SCREENING due on 2003 COLORECTAL CANCER SCREENING,SEE MODIFIER due on 09/17/2017 INFLUENZA(1) due on 02/05/2018 ANNUAL PCP TEAM CHRONIC DISEASE VISIT due on 02/03/2019 DIABETES SCREEN due on 09/11/2019 LIPID SCREEN due on 04/09/2020 DTAP,TDAP,TD(8 - Td) due on 02/04/2028 PROSTATE CANCER SCREENING DISCUSSION Completed ASSESSMENT/PLAN: 1. Cellulitis of lower extremity, unspecified laterality - ICD9: 682.6, ICD10: L03.119 NO improvement. Refill bactrim, add keflex, and will send wound culture from left leg. Needs to follow up with wound care this week. Advised to keep legs wrapped, apply abx ointment, change dressing at least daily. Discussed with brother that if patient is unable to stop picking he will continue to get these infections. If he is not able to be cared for at his father's house, may need to transition to a location where they can monitor him 24 hours per day. - WOUND CULTURE AND GRAM STAIN - SULFAMETHOXAZOLE 800 MG-TRIMETHOPRIM 160 MG TABLET - CEPHALEXIN 500 MG CAPSULE - CONSULT TO SKIN CARE TEAM - MUPIROCIN 2 % TOPICAL CREAM Kb Vang MD Referring Provider: SELF [200] Allergies As of Date: 05/03/2018 (No Known Allergies) Date Reviewed: 05/03/2018 Reviewed by: Calixto Garcia Ma - Fully Assessed Reason for Visit: ED Follow-up [821] Primary Visit Diagnosis:Cellulitis of lower extremity, unspecified laterality [L03.119] Order(s):WOUND CULTURE AND GRAM STAIN [SQWCUL] Order #: [id number] sulfamethoxazole-trimethoprim (BACTRIM DS) 800-160 mg per tabletTake 1 tablet by mouth twice daily for 10 days.Disp: 20 tabletRfl: 0 cephALEXin (KEFLEX) 500 mg capsuleTake 1 capsule by mouth three times daily.Disp: 30 capsuleRfl: 0 CONSULT TO SKIN CARE TEAM [[id number]] Order #: [id number]: 1 mupirocin (BACTROBAN) 2 % creamApply 1 application to affected area twice daily. Location: lower extremitiesDisp: 30 gRfl: 2 Prescriptions as of 05/03/2018 Sig: LISINOPRIL 10 MG TABLET Take 1 tablet by mouth once d* SULFAMETHOXAZOLE 800 MG-TRIME* Take 1 tablet by mouth twice * CEPHALEXIN 500 MG CAPSULE Take 1 capsule by mouth three* MUPIROCIN 2 % TOPICAL CREAM Apply 1 application to affect* MUPIROCIN 2 % TOPICAL OINTMENT Apply 1 application to affect* Patient not taking: Reported on 04/27/2018 NON-ADHERENT BANDAGE 2 X 3 Apply over the silvadine crea* SILVER SULFADIAZINE 1 % TOPIC* Apply 1 application to affect* Patient not taking: Reported on 04/27/2018 COMPOUNDED PRESCRIPTION 4x4 gauze, 4 inch roll gauze,* Problem List As Of Date 05/03/2018 Noted Resolved Developmental delay, mild [R62.50] INVALID FOR* Essential hypertension [I10] INVALID FOR* Prescriptions ordered this encounter Disp Refills Start End SULFAMETHOXAZOLE 800 MG-TRIMETHOPRIM* 20 t* 0 05/03/2018 05/13/2018 Cmt: Ok to give generic equivalent Route: ORAL Sig: Take 1 tablet by mouth twice daily for 10 days. CEPHALEXIN 500 MG CAPSULE 30 c* 0 05/03/2018 Route: ORAL Sig: Take 1 capsule by mouth three times daily. MUPIROCIN 2 % TOPICAL CREAM 30 g 2 05/03/2018 Route: TOPICAL Sig: Apply 1 application to affected area twice daily. Location: lower extremities Medications Discontinued During This Encounter sulfamethoxazole-trimethoprim (BACTR* 0 04/27/2018 05/03/2018 Class: Historical Med Route: ORAL Sig: Take 1 tablet by mouth twice daily. Disc: Reason for discontinue is not on file. Encounter Status:Closed by KB VANG MD on 05/03/18 PROGRESS Observed: 05/03/2018 Status: COMPLETED Source: [place] 7:24 PM [facility] REPOSITORY HNO ID: [id number] Author: Kb Bhagat () Ciera Service: (none) Author Type: Physician Type: Progress Notes Filed: 05/03/2018 7:48 PM Note Text: Chief Complaint Patient presents with: ED Follow-up HPI Alley Forte is a 58 year old male who presents here today for ER Follow Up. Accompanied today by brother Pb, patient's DPOA. Patient was seen at [facility] ED on 04/27 for bilateral lower extremity cellulitis caused by skin picking for weeks. Denied fever, chills, nausea, vomiting at the time. History of MRSA treated Successfully with Bactrim in the past. Exam showed surrounding erythema over anterior shins with some clear drainage. No lymphangitic streaking, no creptius, normal pulses. Started on Bactrim DS for 7 days and advised follow up with wound care where patient had been treated previously. Discussed case with sister in law who is cap sewer and she felt comfortable caring for him at home without IV fluids or further labs while in ED. Since discharge, erythema and lesions have not improved on bactrim. Taking BID as recommended without side effects. Sister in law wrapping patient's legs, but he is occasionally taking them off and picking at his legs as well as his face and fingers. Denies fever, chills, nausea, vomiting, increased pain. Has not yet followed up with wound care. Past medical history, appointments, medications, allergies reviewed. Previous Medical History PAST MEDICAL HISTORY Diagnosis Date - Developmental delay - Hypertension - Moderate anoxic ischemic brain damage in - Obesity (BMI 30-39.9) - Prediabetes Previous Surgical History PAST SURGICAL HISTORY Procedure Laterality Date - REMOVAL OF TONSILS,<12 Y/O Tonsillectomy-Dr. Vinson Family History FAMILY HISTORY Problem Relation Age of Onset - Cancer Father Skin-non melanoma - Heart Mother cardiomyopathy Patient Allergies ALLERGIES No Known Allergies Current Medications Current Outpatient Prescriptions on File Prior to Visit: lisinopril (ZESTRIL, PRINIVIL) 10 mg tablet Take 1 tablet by mouth once daily. mupirocin (BACTROBAN) 2 % ointment Apply 1 application to affected area three times daily. Location: legs (Patient not taking: Reported on 04/27/2018 ) Non-Adherent Bandage (TELFA) 2 X 3 bndg Apply over the silvadine cream. Change daily silver sulfADIAZINE (SILVADENE,THERMAZENE) 1 % cream Apply 1 application to affected area once daily. Apply to open area on the leg. Cover with a Telfa pad. (Patient not taking: Reported on 04/27/2018 ) COMPOUNDED PRESCRIPTION 4x4 gauze, 4 inch roll gauze, Bacitracin ointment large tubeChange dressing to leg ulcers (sepulveda) twice a dayEnough supplies for a month. No current facility-administered medications on file prior to visit. Social History Social History Marital status: Single Spouse name: Years of education: Number of children: Occupational History Occupation Employer Comment [employer]SI Social History Main Topics Smoking status: Never Smoker Smokeless tobacco: Never Used Alcohol use: No Drug use: No Sexual activity: No Social History Narrative Lives with father, mother . Watches TV mostly. Walks. Brother Huy has DPOA. Review of Symptoms REVIEW OF SYSTEMS See HPI EXAM: BP 118/78 Pulse 76 Temp 36.7 ?C (98 ?F) (Tympanic) Resp 12 Wt 108.4 kg (239 lb) BMI 37.43 kg/m? General Appearance: Well appearing, alert, in no acute distress, well-hydrated, well nourished.. Skin: circumferential erythema from knee to ankle with scattered crusting/scabbing, clear drainage, and several eraser sized open wounds from picking. Warm to touch, mild TTP, no streaking. . Lungs: lungs clear to auscultation. No wheezing, rhonchi, rales. Heart: RRR without murmur, gallop, or rubs. No ectopy. Health Maintenance List BP CONTROLLED (<130/80) due on 1977 HEPATITIS C SCREENING due on 2003 COLORECTAL CANCER SCREENING,SEE MODIFIER due on 09/17/2017 INFLUENZA(1) due on 02/05/2018 ANNUAL PCP TEAM CHRONIC DISEASE VISIT due on 02/03/2019 DIABETES SCREEN due on 09/11/2019 LIPID SCREEN due on 04/09/2020 DTAP,TDAP,TD(8 - Td) due on 02/04/2028 PROSTATE CANCER SCREENING DISCUSSION Completed ASSESSMENT/PLAN: 1. Cellulitis of lower extremity, unspecified laterality - ICD9: 682.6, ICD10: L03.119 NO improvement. Refill bactrim, add keflex, and will send wound culture from left leg. Needs to follow up with wound care this week. Advised to keep legs wrapped, apply abx ointment, change dressing at least daily. Discussed with brother that if patient is unable to stop picking he will continue to get these infections. If he is not able to be cared for at his father's house, may need to transition to a location where they can monitor him 24 hours per day. - WOUND CULTURE AND GRAM STAIN - SULFAMETHOXAZOLE 800 MG-TRIMETHOPRIM 160 MG TABLET - CEPHALEXIN 500 MG CAPSULE - CONSULT TO SKIN CARE TEAM - MUPIROCIN 2 % TOPICAL CREAM Kb Vang MD WOUND Observed: 05/03/2018 Status: F Source: [place] CULTURE/STAIN 5:44 PM [facility] REPOSITORY Sp. Request/Comment: - Swab Smear Result - No organisms seen No Polymorphonuclear Leukocytes Culture Result - One colony. Growth on blood agar only. --> ABNORMAL ALERT Staphylococcus aureus --> ABNORMAL ALERT Rare skin gonzalo ORGANISM: Staphylococcus aureus METHOD: Minimum inhibitory concentration(Vitek) Antibiotic Interp JUAN Status Erythromycin RESISTANT F Clindamycin RESISTANT F Inducible clindamycin resistance detected. Tetracycline SUSCEPTIBLE <=1 F Vancomycin SUSCEPTIBLE 1 F Oxacillin SUSCEPTIBLE 0.5 F Oxacillin susceptible staphylococci are susceptible to other penicillinase stable penicillins, beta lactam/beta lactamase inhibitor combinations, anti staphyloccal cephems, and carbapenems. Trimeth sulfameth SUSCEPTIBLE <=10 F Gentamicin SUSCEPTIBLE <=0.5 F Rifampin SUSCEPTIBLE <=0.5 F Rifampin should not be used alone for antimicrobial therapy. Doxycycline SUSCEPTIBLE <=0.5 F Performed By: #### WCUL #### [facility] [address] [place], [place] [address] EMERGENCY DEPARTMENT Observed: 04/27/2018 Status: F Source: [place] 3:50 PM [facility] REPOSITORY [facility] Medical Records Department [address] [place] [address] Emergency Department Summary 04/27/18 0946 MR#: [id number] Acct: [id number] Name: ALLEY FORTE Rep #: [id number] : 1960 58 From: Mario Thomas MD PCP: Anthony Vang MD Status: DEP ER - ER Visit Summary Date of Service: 04/27/18 Chief Complaint: [] Bilateral lower extremity cellulitis History of Present Illness: The patient is a 58 M [] developmental delay chronic lower extremity cellulitis leave him picking at his skin scabs, per the family for weeks he has been picking at lower extremity skin scabs he now has what appears to be cellulitis with redness of the extremities he has been seen in the past at the wound care center. His health is otherwise been good he has had no fever no cough no vomiting the family is able to manage and care for him he has no diabetes or history of MRSA he is usually treated with Bactrim Physical Examination: [] His vital signs are within normal range 146/79, General, no distress resting comfortably HEENT is generally unremarkable The neck is supple no adenopathy Cardiovascular, regular rate and rhythm Lungs, clear bilateral Abdomen, soft nontender Extremities, he has scattered scales across the anterior shins bilaterally he has surrounding redness over the anterior shins, with some clear drainage from the extremities., He has no lymphangitic streaking, there is no subcu air crepitance, he has intact pulses and sensation to his toes he has full range of motion of his ankles and his feet, he has scattered skin tears and scabs scattered skin cares and tabs to the forehead and the hand Neurologic, awake alert answering questions appropriately moving all 4 extremities Test Results: [] Emergency Department Course and Treatment: [] Discussed with the patient and his [id number] who is his cap sewer, we discussed obtaining IV fluids lab tests antibiotics etc., they declined that stating that the think he needs local wound care dressing and antibiotics usually treated with Bactrim the sister was very comfortable taking him home and managing him as an outpatient as this is a chronic relapsing condition is had and is usually managed by the wound care center. At this time then at the request we will defer ED workup and labs we will provide wound care, Bactrim DS and [id number] knows how to manage the wounds and will have him follow-up with the wound care center and return for change in symptoms Treatment Plan: [] Disposition: [] Home stable declined ED workup Impression: [] Bilateral lower extremity cellulitis This note was generated with [employer] dictation software. It may contain incorrect words, spelling, and punctuation that were not noted in review of the chart prior to signing ED Disposition - Plan for ED Patient: Chief Complaint: Cellulitis Referrals: Anthony Vang MD [Primary Care Provider] - What to do if you have Problems For any increased pain, shortness of breath, bleeding, nausea or vomiting, chest pain, or any unexpected problems, contact your Primary Care Provider. Call [facility] ([phone]) or report to the closest Emergency Room. Call 911 if necessary. 04/27/18 1550 <Electronically signed by Mario Thomas MD> Date Mario Thomas MD Cosigner Signature (If Indicated): Date CC: Anthony Vang MD DISCHARGE INSTRUCTION Observed: 04/27/2018 Status: F Source: [place] 10:00 AM [facility] REPOSITORY [facility] Medical Records Department [address] [place] [address] Discharge Instruction 04/27/18 0959 MR#: [id number] Acct: [id number] Name: REANNAALLEY Griffiths Rep #: [id number] : 1960 58 From: Mario Thomas MD PCP: Anthony Vang MD Status: PRE ER ED Disposition - Plan for ED Patient: Chief Complaint: Cellulitis Instructions: Discharge Instructions for Cellulitis Prescriptions: Smz/Tmp Ds [Bactrim Ds] 1 tab PO BID #14 tab Referrals: Anthony Vang MD [Primary Care Provider] - What to do if you have Problems For any increased pain, shortness of breath, bleeding, nausea or vomiting, chest pain, or any unexpected problems, contact your Primary Care Provider. Call [employer] [facility] ([phone]) or report to the closest Emergency Room. Call 911 if necessary. 04/27/18 1000 <Electronically signed by Mario Thomas MD> Date Mario Thomas MD Cosigner Signature (If Indicated): Date CC: Anthony Vang MD CNOV Observed: 04/27/2018 Status: COMPLETED Source: [place] 8:30 AM [facility] REPOSITORY Office Visit ([facility]) ALLEY FORTE ([id number]) 1960 M Date Time Provider Department 04/27/18 8:[address] [facility] During your visit today, we recorded the following information about you: Referring Provider: SELF [200] Allergies As of Date: 04/27/2018 (No Known Allergies) Date Reviewed: 04/27/2018 Reviewed by: Riya Good Ma - Fully Assessed Reason for Visit: Sent to ED [Other] Reason For Visit History Recorded Primary Visit Diagnosis:APPOINTMENT CANCELLED Prescriptions as of 04/27/2018 Sig: LISINOPRIL 10 MG TABLET Take 1 tablet by mouth once d* COMPOUNDED PRESCRIPTION 4x4 gauze, 4 inch roll gauze,* MUPIROCIN 2 % TOPICAL OINTMENT Apply 1 application to affect* Patient not taking: Reported on 04/27/2018 NON-ADHERENT BANDAGE 2 X 3 Apply over the silvadine crea* SILVER SULFADIAZINE 1 % TOPIC* Apply 1 application to affect* Patient not taking: Reported on 04/27/2018 Problem List As Of Date 04/27/2018 Noted Resolved Developmental delay, mild [R62.50] INVALID FOR* Essential hypertension [I10] INVALID FOR* Encounter Status:Closed by TONEY CHERY CMA on 05/04/18 EMERGENCY DEPARTMENT Observed: 02/13/2018 Status: F Source: [place] 9:42 AM [facility] REPOSITORY [facility] Medical Records Department [address] [place] [address] Emergency Department Summary 02/13/18 0800 MR#: [id number] Acct: [id number] Name: ALLEY FORTE Rep #: [id number] : 1960 58 From: Melanie Vaughn MD PCP: Anthony Vang MD Status: DEP ER - ER Visit Summary Date of Service: 02/13/18 Chief Complaint: Abdominal pain History of Present Illness: The patient is a 58 M presenting with left lower quadrant abdominal pain. This started this morning. He states his symptoms are now starting to improve. He has nausea with no vomiting. He denies diarrhea or constipation. Denies urinary complaints. Denies fever. He has had similar symptoms in the past. Physical Examination: Vitals are stable. Patient is afebrile. Alert no acute distress. HEENT exam is unremarkable. Neck is supple. Lungs are clear and equal bilaterally. Heart is regular rate and rhythm. Abdomen is soft nontender nondistended. No guarding or rebound Extremities are unremarkable. Skin is warm and dry. Remainder of exam is unremarkable. Emergency Department Course and Treatment: Patient refuses blood work. CT abdomen pelvis without contrast shows again noted nonobstructing tiny/punctate left renal calculi. Diffuse mild wall thickening of the stomach/gastric antrum. Fluid- filled borderline distended duodenum, jejunum and portion of the distal small intestine is seen with clumping of the small bowel, suggestive of acute gastroenteritis. Chronic mesenteric adenitis. Moderately increased colonic stool volume. Patient is feeling improved in the emergency department. He is able to tolerate p.o. He continues to decline further testing. He is given a prescription for Bentyl and Zofran. He is advised to follow-up with Dr. Vang his primary care physician. He is advised to return to the ED if he has any worsening complaints. Disposition: Discharge home Impression: Abdominal pain This note was generated with [employer] dictation software. It may contain incorrect words, spelling, and punctuation that were not noted in review of the chart prior to signing ED Disposition - Plan for ED Patient: Chief Complaint: Abd Pain Referrals: Anthony Vang MD [Primary Care Provider] - What to do if you have Problems For any increased pain, shortness of breath, bleeding, nausea or vomiting, chest pain, or any unexpected problems, contact your Primary Care Provider. Call [facility] ([phone]) or report to the closest Emergency Room. Call 911 if necessary. 02/13/1842 <Electronically signed by Melanie Vaughn MD> Date Melanie Vaughn MD Cosigner Signature (If Indicated): Date CC: Anthony Vang MD DISCHARGE INSTRUCTION Observed: 02/13/2018 Status: F Source: [place] 8:05 AM [facility] REPOSITORY [facility] Medical Records Department [address] [place] [address] Discharge Instruction 02/13/18 08 MR#: [id number] Acct: [id number] Name: ALLEY FORTE R Rep #: [id number] : 1960 58 From: Melanie Vaughn MD PCP: Anthony Vang MD Status: REG ER ED Disposition - Plan for ED Patient: Chief Complaint: Abd Pain Instructions: ED Abdominal Pain Unkn Cause Prescriptions: Ondansetron [Zofran Odt] 4 mg PO Q8H PRN PRN #10 tablet PRN Reason: Nausea Dicyclomine HCl [Bentyl] 20 mg PO TIDAC #20 capsule Referrals: Anthony Vang MD [Primary Care Provider] - What to do if you have Problems For any increased pain, shortness of breath, bleeding, nausea or vomiting, chest pain, or any unexpected problems, contact your Primary Care Provider. Call [facility] ([phone]) or report to the closest Emergency Room. Call 911 if necessary. 02/13/18 08 <Electronically signed by Melanie Vaughn MD> Date Melanie Vaughn MD Cosigner Signature (If Indicated): Date CC: Anthony Vang MD ABDOMEN/PELVIS WITHOUT Observed: 02/13/2018 Status: F Source: [place] 6:26 AM [facility] REPOSITORY [facility] Imaging Services [address] [place] [id number] Abdomen/Pelvis without Cont MR#: [id number] Acct: [id number] Name: ALLEY FORTE R Rep #: [id number] : 1960 M 58 From: Shira Gaytan PCP: Anthony Vang MD Status: REG ER Study: Abdomen/Pelvis without Cont Date of Exam: 02/13/18 Exam# [id number] Ordering Dr: Melanie Vaughn MD STUDY: CT ABDOMEN AND PELVIS WITHOUT CONTRAST REASON FOR EXAM: Male, 58 years old. Left-sided abdominal pain with nausea. RADIATION DOSAGE (If Supplied By Facility): CTDIvol = ( 17.42 ) mGy, DLP = ( 913.97 ) mGycm TECHNIQUE: Transaxial images were obtained from the dome of the diaphragm to the symphysis pubis without oral contrast, and without intravenous contrast. Sagittal and coronal images were reconstructed. Individualized dose optimization techniques were used for this CT. COMPARISON: CT abdomen/pelvis: 12/15/2016. FINDINGS: Image quality is hampered by motion artifact. The visualized lung bases shows posteriorly linear atelectasis with mild pleural thickening on the left side. The visualized portions of the heart are within normal limits. There is decreased attenuation of the liver consistent with mild steatosis. The gallbladder is partially contracted. Normal unenhanced spleen. There is diffuse mild atrophy of the pancreas. Normal bilateral adrenal glands. There is bilateral renal mild cortical atrophy. Again demonstrated tiny/punctate calculi in the upper pole calyx of the left kidney. Left partial duplicate renal system. Again demonstrated bilateral perinephric stranding of the fat. Evaluation of the bowel is limited in absence of oral contrast. Again noted diffuse mild wall thickening of the stomach, including the gastric antrum. There is diffuse abnormal wall thickening of the fluid-filled borderline distended duodenum, jejunum and portion of the distal small intestine noted, suggestive of acute gastroenteritis. Multiple small centimeter/subcentimeter lymph nodes are again demonstrated in the root of the small bowel mesentery and in right lower quadrant with associated mild mesenteric edema. There is moderate volume retained stool in the colon, including the rectosigmoid. There is non-visualization of the appendix. Normal abdominal aorta. Normal inferior vena cava. There is borderline retroperitoneal lymphadenopathy with enlarged nodes no greater than 10mm in the short axis diameter. Normal urinary bladder. Normal visualized prostate gland. There is a small umbilical hernia containing fat. Small bilateral inguinal lymphadenopathy. There is diffuse bony demineralization. Multilevel thoracolumbar Schmorl's nodes with superior endplate defects demonstrated. CT/Abdomen/Pelvis without Cont IMPRESSION: 1. Again noted nonobstructing tiny/punctate left renal calculi. 2. Diffuse mild wall thickening of the stomach/gastric antrum. Fluid-filled borderline distended duodenum, jejunum and portion of the distal small intestine is seen with clumping of the small bowel, suggestive of acute gastroenteritis in the appropriate clinical context. 3. Chronic mesenteric adenitis. Mild mesenteric edema. 4. Moderately increased colonic stool volume. 5. Umbilical hernia containing fat. 6. Bilateral inguinal lymphadenopathy. Electronically Signed: Jesus Gaytan MD at 7:42 EDT Tel , Service support , CC: Melanie Vaughn MD; Anthony Vang MD Pulley Mortiser Operator: Signed PROGRESS Observed: 02/03/2018 Status: COMPLETED Source: [place] 10:12 AM [facility] [place] REPOSITORY HNO ID: [id number] Author: Kb Bhagat () Ciera Service: (none) Author Type: Physician Type: Progress Notes Filed: 02/03/2018 11:27 AM Note Text: Chief Complaint Patient presents with: Establish Care HPI Alley Forte is a 58 year old male who presents here today for transfer of care visit. Previously seeing Dr. Bowen. Last OV was 08/2016. Accompanied today by sister in law Arthur who has guardianship paperwork for patient to be filled out today. Brother Huy has DPOA. History today mostly given by family. Patient recently hospitalized for bilateral lower extremity cellulitis 2/2 self picking leading to ulcers. Has been following up with wound center once a week and has home health out twice weekly for dressing changes. Using bactroban and sulvadene as recommended. Healing slowly. Not seeing counseling or on medications for this in the past. Records not available today. Complaining of pain in his LE when he lies flat at night. Has to get up and walk or sit in chair to sleep. Has tried elevating legs. Patient had colonoscopy in the last couple years by Dr. Handy. Records not in system. Reportedly normal. Due for repeat blood work and follow up of prediabetes. Past medical history, appointments, medications, allergies reviewed and updated. Previous Medical History PAST MEDICAL HISTORY Diagnosis Date - Hypertension - Moderate anoxic ischemic brain damage in - Prediabetes Previous Surgical History PAST SURGICAL HISTORY Procedure Laterality Date - REMOVAL OF TONSILS,<11 Y/O Tonsillectomy-Dr. Vinson Family History FAMILY HISTORY Problem Relation Age of Onset - Cancer Father Skin - Heart Mother cardiomyopathy Patient Allergies ALLERGIES No Known Allergies Current Medications Current Outpatient Prescriptions on File Prior to Visit: mupirocin (BACTROBAN) 2 % ointment Apply 1 application to affected area three times daily. Location: legs Non-Adherent Bandage (TELFA) 2 X 3 bndg Apply over the silvadine cream. Change daily lisinopril (ZESTRIL, PRINIVIL) 10 mg tablet Take 1 tablet by mouth once daily. silver sulfADIAZINE (SILVADENE,THERMAZENE) 1 % cream Apply 1 application to affected area once daily. Apply to open area on the leg. Cover with a Telfa pad. COMPOUNDED PRESCRIPTION 4x4 gauze, 4 inch roll gauze, Bacitracin ointment large tubeChange dressing to leg ulcers (sepulveda) twice a dayEnough supplies for a month. No current facility-administered medications on file prior to visit. Social History Social History Marital status: Single Spouse name: Years of education: Number of children: Social History Main Topics Smoking status: Never Smoker Smokeless tobacco: Never Used Alcohol use: No Drug use: No Sexual activity: No Social History Narrative Lives with father, mother . Watches TV mostly. Walks. Review of Symptoms REVIEW OF SYSTEMS GENERAL: No weight loss, malaise or fevers NECK: Negative for lumps, goiter, pain and significant neck swelling RESPIRATORY: Negative for cough, hemoptysis, wheezing, COPD, dyspnea or shortness of breath CARDIOVASCULAR: Negative for chest pain, leg swelling, hypertension, CHF or palpitations GI: No nausea, vomiting, or diarrhea SKIN: See HPI EXAM: BP 124/84 Pulse 76 Resp 12 Ht 170.2 cm (5' 7) Wt 106.1 kg (234 lb) BMI 36.65 kg/m? General Appearance: Well appearing, alert, in no acute distress, well-hydrated, well nourished.. Skin: LE wrapped from mid araujo to ankle with gauze. No erythema outside of dressing. No purulent fluid on wraps. Lungs: Lungs clear to auscultation. No wheezing, rhonchi, rales. Heart: RRR without murmur, gallop, or rubs. No ectopy. Abdomen: Normal abdominal exam, Abdomen soft, non-tender. Bowel sounds normal. No masses, organomegaly. Extremities: No deformities, edema, skin discoloration, clubbing or cyanosis. Good capillary refill. . Neurologic: AOx3, slowed gait but stead without limp. Able to recall apple table cody after 5 minutes, limited ability to make decisions. Health Maintenance List ANNUAL PCP TEAM CHRONIC DISEASE VISIT due on 1977 BLOOD PRESSURE CONTROLLED due on 1977 DTAP,TDAP,TD(7 - Tdap) due on 11/07/1987 HEPATITIS C SCREENING due on 2003 COLORECTAL CANCER SCREENING,SEE MODIFIER due on 08/21/2015 INFLUENZA(1) due on 02/05/2018 DIABETES SCREEN due on 09/11/2019 LIPID SCREEN due on 04/09/2020 PROSTATE CANCER SCREENING DISCUSSION Completed Data reviewed Component Latest Ref Rng AND Units 09/10/2016 WBC 3.70 - 11.00 k/uL 13.17 (H) RBC 4.20 - 6.00 m/uL 4.48 Hemoglobin 13.0 - 17.0 g/dL 13.9 Hematocrit 39.0 - 51.0 % 42.4 MCV 80.0 - 100.0 fL 94.6 MCH 26.0 - 34.0 pG 31.0 MCHC 30.5 - 36.0 g/dL 32.8 RDW-CV 11.5 - 15.0 % 14.6 Platelet Count 150 - 400 k/uL 193 MPV 9.0 - 12.7 fL 13.8 (H) Neut% % 41.0 Abs Neut (ANC) 1.45 - 7.50 k/uL 5.40 Lymph% % 54.0 Abs Lymph 1.00 - 4.00 k/uL 7.11 (H) [place]% % 5.0 Abs [place] 0.00 - 0.86 k/uL 0.66 Eosin% % 0.0 Abs Eosin 0.00 - 0.45 k/uL 0.00 Baso% % 0.0 Abs Baso 0.00 - 0.10 k/uL 0.00 ANC(includeSEG+BAND) k/uL 5.40 Red Cell Morph SEE COMMENT Diff Type Manual Diff Hemoglobin A1C 4.3 - 5.6 % 5.9 (H) Estimated Average Glucose mg/dL 123 Potassium 3.7 - 5.1 mmol/L 4.6 ASSESSMENT/PLAN: 1. Essential hypertension - ICD9: 401.9, ICD10: I10 (primary diagnosis) - good control - Continue current medication(s) - Encouraged dietary sodium restriction/DASH diet - Recommended regular aerobic exercise. - Reviewed risks of HTN and principles of treatment - Goal of BP <140/90 - COMP METABOLIC PANEL - CBC + DIFF 2. Developmental delay, mild - ICD9: 783.40, ICD10: R62.50 Mild to moderate. Filled out guardianship paperwork today as requested, will require prison guardian. Advised patient he is unable to drive with his condition. Discussed cessation of picking behavior. Offered counseling, but was refused. 3. Prediabetes - ICD9: 790.29, ICD10: R73.03 Repeat A1C. Work on healthy diet, exercise, and weight loss. - HGB A1C 4. Obesity, Class II, BMI 35-39.9 - ICD9: 278.00, ICD10: E66.9 Work on healthy diet, exercise, and weight loss. - LIPID PANEL BASIC 5. Picking own skin - ICD9: 312.39, ICD10: L98.1 See above. 6. Cellulitis of skin - ICD9: 682.9, ICD10: L03.90 Continue current regimen. Follow up with wound care, will obtain records. 7. Pain in both lower extremities - ICD9: 729.5, ICD10: M79.604, M79.605 Possible RLS. Will check iron studies and call with results. - IRON + TIBC - FERRITIN BLD I spent 40 minutes in the visit, with more than 50% of the total bfcq-fm-sggo time of the visit in counseling / coordination of care. Kb Vang MD CNOV Observed: 02/03/2018 Status: COMPLETED Source: [place] 10:00 AM [facility] REPOSITORY [facility] ALLEY [facility] ([id number]) 1960 M Date Time Provider Department 02/03/18 10:00 AM KB VANG) LARA During your visit today, we recorded the following information about you: Pulse Respiration Blood pressure Weight 76/minute 12/minute 124/84 106.1 kg Height 1.702 m Kb Vang MD 02/03/2018 11:27 AM Signed Chief Complaint Patient presents with: Establish Care HPI Alley Forte is a 58 year old male who presents here today for transfer of care visit. Previously seeing Dr. Bowen. Last OV was 08/2016. Accompanied today by sister in law Arthur who has guardianship paperwork for patient to be filled out today. Brother Huy has DPOA. History today mostly given by family. Patient recently hospitalized for bilateral lower extremity cellulitis 2/2 self picking leading to ulcers. Has been following up with wound center once a week and has home health out twice weekly for dressing changes. Using bactroban and sulvadene as recommended. Healing slowly. Not seeing counseling or on medications for this in the past. Records not available today. Complaining of pain in his LE when he lies flat at night. Has to get up and walk or sit in chair to sleep. Has tried elevating legs. Patient had colonoscopy in the last couple years by Dr. Handy. Records not in system. Reportedly normal. Due for repeat blood work and follow up of prediabetes. Past medical history, appointments, medications, allergies reviewed and updated. Previous Medical History PAST MEDICAL HISTORY Diagnosis Date - Hypertension - Moderate anoxic ischemic brain damage in - Prediabetes Previous Surgical History PAST SURGICAL HISTORY Procedure Laterality Date - REMOVAL OF TONSILS,<11 Y/O Tonsillectomy-Dr. Vinson Family History FAMILY HISTORY Problem Relation Age of Onset - Cancer Father Skin - Heart Mother cardiomyopathy Patient Allergies ALLERGIES No Known Allergies Current Medications Current Outpatient Prescriptions on File Prior to Visit: mupirocin (BACTROBAN) 2 % ointment Apply 1 application to affected area three times daily. Location: legs Non-Adherent Bandage (TELFA) 2 X 3 bndg Apply over the silvadine cream. Change daily lisinopril (ZESTRIL, PRINIVIL) 10 mg tablet Take 1 tablet by mouth once daily. silver sulfADIAZINE (SILVADENE,THERMAZENE) 1 % cream Apply 1 application to affected area once daily. Apply to open area on the leg. Cover with a Telfa pad. COMPOUNDED PRESCRIPTION 4x4 gauze, 4 inch roll gauze, Bacitracin ointment large tubeChange dressing to leg ulcers (sepulveda) twice a dayEnough supplies for a month. No current facility-administered medications on file prior to visit. Social History Social History Marital status: Single Spouse name: Years of education: Number of children: Social History Main Topics Smoking status: Never Smoker Smokeless tobacco: Never Used Alcohol use: No Drug use: No Sexual activity: No Social History Narrative Lives with father, mother . Watches TV mostly. Walks. Review of Symptoms REVIEW OF SYSTEMS GENERAL: No weight loss, malaise or fevers NECK: Negative for lumps, goiter, pain and significant neck swelling RESPIRATORY: Negative for cough, hemoptysis, wheezing, COPD, dyspnea or shortness of breath CARDIOVASCULAR: Negative for chest pain, leg swelling, hypertension, CHF or palpitations GI: No nausea, vomiting, or diarrhea SKIN: See HPI EXAM: BP 124/84 Pulse 76 Resp 12 Ht 170.2 cm (5' 7) Wt 106.1 kg (234 lb) BMI 36.65 kg/m? General Appearance: Well appearing, alert, in no acute distress, well-hydrated, well nourished.. Skin: LE wrapped from mid araujo to ankle with gauze. No erythema outside of dressing. No purulent fluid on wraps. Lungs: Lungs clear to auscultation. No wheezing, rhonchi, rales. Heart: RRR without murmur, gallop, or rubs. No ectopy. Abdomen: Normal abdominal exam, Abdomen soft, non-tender. Bowel sounds normal. No masses, organomegaly. Extremities: No deformities, edema, skin discoloration, clubbing or cyanosis. Good capillary refill. . Neurologic: AOx3, slowed gait but stead without limp. Able to recall apple table cody after 5 minutes, limited ability to make decisions. Health Maintenance List ANNUAL PCP TEAM CHRONIC DISEASE VISIT due on 1977 BLOOD PRESSURE CONTROLLED due on 1977 DTAP,TDAP,TD(7 - Tdap) due on 11/07/1987 HEPATITIS C SCREENING due on 2003 COLORECTAL CANCER SCREENING,SEE MODIFIER due on 08/21/2015 INFLUENZA(1) due on 02/05/2018 DIABETES SCREEN due on 09/11/2019 LIPID SCREEN due on 04/09/2020 PROSTATE CANCER SCREENING DISCUSSION Completed Data reviewed Component Latest Ref Rng AND Units 09/10/2016 WBC 3.70 - 11.00 k/uL 13.17 (H) RBC 4.20 - 6.00 m/uL 4.48 Hemoglobin 13.0 - 17.0 g/dL 13.9 Hematocrit 39.0 - 51.0 % 42.4 MCV 80.0 - 100.0 fL 94.6 MCH 26.0 - 34.0 pG 31.0 MCHC 30.5 - 36.0 g/dL 32.8 RDW-CV 11.5 - 15.0 % 14.6 Platelet Count 150 - 400 k/uL 193 MPV 9.0 - 12.7 fL 13.8 (H) Neut% % 41.0 Abs Neut (ANC) 1.45 - 7.50 k/uL 5.40 Lymph% % 54.0 Abs Lymph 1.00 - 4.00 k/uL 7.11 (H) [place]% % 5.0 Abs [place] 0.00 - 0.86 k/uL 0.66 Eosin% % 0.0 Abs Eosin 0.00 - 0.45 k/uL 0.00 Baso% % 0.0 Abs Baso 0.00 - 0.10 k/uL 0.00 ANC(includeSEG+BAND) k/uL 5.40 Red Cell Morph SEE COMMENT Diff Type Manual Diff Hemoglobin A1C 4.3 - 5.6 % 5.9 (H) Estimated Average Glucose mg/dL 123 Potassium 3.7 - 5.1 mmol/L 4.6 ASSESSMENT/PLAN: 1. Essential hypertension - ICD9: 401.9, ICD10: I10 (primary diagnosis) - good control - Continue current medication(s) - Encouraged dietary sodium restriction/DASH diet - Recommended regular aerobic exercise. - Reviewed risks of HTN and principles of treatment - Goal of BP <140/90 - COMP METABOLIC PANEL - CBC + DIFF 2. Developmental delay, mild - ICD9: 783.40, ICD10: R62.50 Mild to moderate. Filled out guardianship paperwork today as requested, will require termite helper guardian. Advised patient he is unable to drive with his condition. Discussed cessation of picking behavior. Offered counseling, but was refused. 3. Prediabetes - ICD9: 790.29, ICD10: R73.03 Repeat A1C. Work on healthy diet, exercise, and weight loss. - HGB A1C 4. Obesity, Class II, BMI 35-39.9 - ICD9: 278.00, ICD10: E66.9 Work on healthy diet, exercise, and weight loss. - LIPID PANEL BASIC 5. Picking own skin - ICD9: 312.39, ICD10: L98.1 See above. 6. Cellulitis of skin - ICD9: 682.9, ICD10: L03.90 Continue current regimen. Follow up with wound care, will obtain records. 7. Pain in both lower extremities - ICD9: 729.5, ICD10: M79.604, M79.605 Possible RLS. Will check iron studies and call with results. - IRON + TIBC - FERRITIN BLD I spent 40 minutes in the visit, with more than 50% of the total wccb-gn-injb time of the visit in counseling / coordination of care. Kb Vang MD Referring Provider: LINA WU ([facility]) [[id number]] Allergies As of Date: 02/03/2018 (No Known Allergies) Date Reviewed: 02/03/2018 Reviewed by: Kb Mahmood) Ciera - Fully Assessed Reason for Visit: Establish Care [42] Primary Visit Diagnosis:Essential hypertension [I10] Other Visit Diagnoses:Developmental delay, mild [R62.50] Prediabetes [R73.03] Obesity, Class II, BMI 35-39.9 [E66.9] Picking own skin [L98.1] Cellulitis of skin [L03.90] Pain in both lower extremities [M79.604, M79.605] Order(s):COMP METABOLIC PANEL [SQCMP] Order #: [id number] FUTURE LIPID PANEL BASIC [SQLIPB] Order #: [id number] FUTURE CBC + DIFF [SQCBCDIF] Order #: [id number] FUTURE IRON + TIBC [SQIRON] Order #: [id number] FUTURE FERRITIN BLD [SQFERR] Order #: [id number] FUTURE HGB A1C [DGIQZ4Q] Order #: [id number] FUTURE Prescriptions as of 02/03/2018 Sig: MUPIROCIN 2 % TOPICAL OINTMENT Apply 1 application to affect* NON-ADHERENT BANDAGE 2 X 3 Apply over the silvadine crea* LISINOPRIL 10 MG TABLET Take 1 tablet by mouth once d* SILVER SULFADIAZINE 1 % TOPIC* Apply 1 application to affect* COMPOUNDED PRESCRIPTION 4x4 gauze, 4 inch roll gauze,* Problem List As Of Date 02/03/2018 Noted Resolved Developmental delay, mild [R62.50] INVALID FOR* Essential hypertension [I10] INVALID FOR* Disposition: Return in about 6 months (around 08/04/2018). Follow-up and Disposition History Recorded Encounter Status:Closed by KB VANG MD on 02/03/18 SAMUEL Observed: 01/18/2018 Status: COMPLETED Source: [place] 12:00 AM [facility] REPOSITORY Patient Outreach ([facility]) ALLEY FORTE ([id number]) 1960 M Date Time Provider Department 01/18/18 SAUL BOWEN [facility] During your visit today, we recorded the following information about you: Allergies As of Date: 01/18/2018 (No Known Allergies) Date Reviewed: 12/21/2017 Reviewed by: Alix GarzonWinchendon HospitalTay Baltazar - Fully Assessed Visit Diagnosis:Medication management [Z79.899] Order(s):BASIC METABOLIC PNL [SQBMP] Order #: [id number] FUTURE HGB A1C [ENTII6B] Order #: [id number] FUTURE Prescriptions as of 01/18/2018 Sig: MUPIROCIN 2 % TOPICAL OINTMENT Apply 1 application to affect* NON-ADHERENT BANDAGE 2 X 3 Apply over the silvadine crea* LISINOPRIL 10 MG TABLET Take 1 tablet by mouth once d* SILVER SULFADIAZINE 1 % TOPIC* Apply 1 application to affect* COMPOUNDED PRESCRIPTION 4x4 gauze, 4 inch roll gauze,* Problem List As Of Date 01/18/2018 Noted Resolved Developmental delay, mild [R62.50] INVALID FOR* Essential hypertension [I10] INVALID FOR* Encounter Status:Closed by EPIC, PRODUSER on 03/18/18 Observed: 01/14/2018 Status: F Source: HOA CULTURE, DEEP WOUND 3:30 PM [facility] REPOSITORY Comments: R LATERAL LE ULCER. Gram Stain Gram Stain No White Blood Cells No organisms seen Wound Culture Clinical correlation necessary, Possible skin contamination. ORGANISM 1: Staphylococcus epidermidis Amount Growth 1+ Staphylococcus epidermidis: REACTION Benzylpenicillin NF >=0.5 R Cefoxitin *NF + Clindamycin $$ >=8 R Inducable Clindamycin [place] - Erythromycin $ >=8 R Gentamicin $ <=0.5 S Levofloxacin $ >=8 R Linezolid $$$$ 1 S Oxacillin NF >=4 R Tigecycline $$$$ 0.5 S Rifampin $$ <=0.5 S Tetracycline NF >=16 R Vancomycin $ 2 S (NF) indicates non-formulary drug at [facility]. Approval by Infectious Disease Specialist required before non-formulary drugs may be ordered and/or dispensed. * CLSI guidelines does not recommend testing of cephalosporins. This interpretation is deduced from Beta-lactam/penicillin results. Cult, Anaerobic No anaerobic bacteria isolated. Performed By: #### M100.1500 #### [facility] [address] [place], [address] WOUND CTR HISTORY Observed: 12/31/2017 Status: F Source: HAO AND PHYSICAL 5:54 PM [facility] REPOSITORY [facility] [address] [place] [address] Wound Ctr History AND Physical 12/31/17 1723 MR#: [id number] Acct: [id number] Name: ALLEY FORTE Rep #: [id number] : 1960 57 From: Nydia Sr DO PCP: Anthony Vang MD Status: REG RCR Y Location: WC (1) Ulcer of right lower extremity with fat layer exposed Status: Chronic Current Visit: Yes Code(s): L97.912 - Non-pressure chronic ulcer of unspecified part of right lower leg with fat layer exposed (2) Edema of both legs Status: Chronic Current Visit: Yes Code(s): R60.0 - Localized edema (3) Cellulitis of both lower extremities Status: Chronic Current Visit: Yes Code(s): L03.115 - Cellulitis of right lower limb; L03.116 - Cellulitis of left lower limb (4) Ulcer of left lower leg Status: Resolved Current Visit: Yes Qualifiers: Non-pressure ulcer stage: with fat layer exposed Code(s): L97.929 - Non-pressure chronic ulcer of unspecified part of left lower leg with unspecified severity (5) Mental deficiency Status: Chronic Current Visit: Yes Code(s): F79 - Unspecified intellectual disabilities (6) Venous insufficiency of both lower extremities Status: Chronic Current Visit: Yes Code(s): I87.2 - Venous insufficiency (chronic) (peripheral) History of Present Illness Date of Service: 12/31/17 Chief Complaint: Ulceration of the right lateral LE and medial LE and cluster of ulcerations of the left distal lower extremity; bilateral lower extremity swelling and edema; resolving cellulitis of b/l LE History of Wound: This is a developmentally disabled 57-year-old male who presented with ulcerations of both lower extremities. These have been present for several weeks but have gotten worse in the las week. He was recently in the hospital and given IV antibiotics for treatment of his cellulitis. The patient is a former patient at the [facility], treated for similar problems in the past. The patient sleeps in a recliner, and spends long hours each day and a sitting position. He has been advised to elevate his lower extremities to heart level, or higher. However, he is noncompliant, and resolutely refuses to do so. He lives with his father, who confirms his son's noncompliance, and indicates his inability to convince his son into applying with recommended measures. He is seen here with his sister today. Patient has failed to elevate his lower extremities, spends long hours each day in a sitting position, and has not been wearing his compression stockings, as formerly recommended. He presented with bilateral lower extremity swelling and edema, bilateral lower extremity ulcerations, and cellulitis of both LE. The patient spends most of his day sitting around, watching TV. The patient is communicative, but is obviously developmentally disabled and with a diminished IQ. The patient has undergone a venous duplex examination 12/29/17 which is completely normal. There is no evidence of superficial venous incompetence or DVT. The patient's noninvasive lower extremity arterial study completed in March 2017 is also normal, with triphasic waveforms at ankle level bilaterally, and normal ankle brachial indices bilaterally. His sister reports that he has not been showering and wears his clothes for weeks without changing them. He has been using silvadene to his wounds. Home Health has been consulted to assist in dressing changes. Past Medical History Past Medical History: Chronic Problems Ulcer of right lower extremity with fat layer exposed (Chronic) Venous insufficiency of both lower extremities (Chronic) Noncompliance (Chronic) Leg swelling (Chronic) Edema of both legs (Chronic) Cellulitis of both lower extremities (Chronic) Mental deficiency (Chronic) HTN (hypertension) (Chronic) Surgical History: tonsillectomy Allergies/Adverse Reactions: Allergies No Known Allergies Allergy (Verified 12/31/17 15:21) Home Medications: Ambulatory Orders Medication Instructions Recorded - Family History Paternal - - No heart disease. Patient's father is alive, aged 90, and healthy. Maternal Diabetes, - - History of cardiac disease Lives: With Family Smoking Status: Never smoker Tobacco Use: Non-smoker Alcohol: None Drugs: None Review of Systems Constitutional: Denies: Chills, Fever, Weight Change Eyes: Denies: Pain, Vision Change HEENT: Denies: Difficulty Hearing, Difficulty Swallowing, Sinus Congestion Cardiovascular: Denies: Chest Pain, Palpitations Respiratory: Denies: Cough, Shortness of Breath Gastrointestinal: Denies: Diarrhea, Nausea, Vomiting Genitourinary: Denies: Dysuria, Hematuria Musculoskeletal: Reports: Leg Pain Skin: Reports: Wounds Hematologic/ Lymphatic: Denies: Easy Bruising, Easy Bleeding - Physical Exam Vital Signs Temp Pulse Resp BP 97.1 F L 93 20 H 108/41 L 12/31/17 14:49 12/31/17 14:49 12/31/17 14:49 12/31/17 14:49 General: Alert, Oriented x3, Cooperative, No apparent distress HEENT: Atraumatic, Normocephalic Neck: Supple Lungs: Clear to auscultation Cardiovascular: Regular rate, Regular Rhythm Abdomen: Soft, Non Tender, Obese Extremities: Edema Skin: Ulcer/ Wound Wound Measurements and Assessment WC - Nurse 1 - General Ulcer Measurement Start: 12/31/17 14:49 Freq: Status: Active Protocol: Activity Type Activity Date Activity User E-Sign Co-Sign Detail Recorded Client Recorded Date Recorded By Document 12/31/17 14:49 DL [id number] 12/31/17 15:17 DL Wound Center Nurse 1 [Ulcer Assessment] #9 LLE araujo cluster -Current Size (cm) - Length 10 -Current Size (cm) - Width 2 -Current Size (cm) - Depth 0.1 WC - Nurse 2 - General Ulcer CM Notes Start: 12/31/17 14:49 Freq: Status: Active Protocol: Activity Type Activity Date Activity User E-Sign Co-Sign Detail Recorded Client Recorded Date Recorded By Document 12/31/17 16:24 TM [id number] 12/31/17 16:31 Wound Center Nurse 2 [Procedure/Treatment] #9 LLE araujo cluster -Time 16:27 -Correct Patient Yes -Correct Side, Site, Position Yes -Correct Procedure Yes Psych/Mental Status: Normal Affect, Appropriate Debridement Note Post-Debridement Measurements/Treatment WC - Nurse 2 - General Ulcer CM Notes Start: 12/31/17 14:49 Freq: Status: Active Protocol: Activity Type Activity Date Activity User E-Sign Co-Sign Detail Recorded Client Recorded Date Recorded By Document 12/31/17 16:24 TM [id number] 12/31/17 16:31 TM Wound Center Nurse 2 Wound debrided: LLE araujo cluster Laterality: Left Type of Debridement: Excisional debridement Anesthesia Used: 4% Lidocaine Solution Depth: Down to and including healthy tissue, in the subcutaneous layer Percentage of wound debrided: 100 Instrument Used: 5mm curette Tissue Removed: yellow slough, devitalized tissue Severity: Fat Layer Exposed Amount of bleeding with debridement: Mild Bleeding Controlled with: Compression and gauze Patient tolerated procedure well - Additional Wound Wound debrided: RLE lateral cluster Laterality: Right Type of Debridement: Excisional debridement Anesthesia Used: 5% Lidocaine Gel Depth: Down to and including healthy tissue, in the subcutaneous layer Percentage of wound debrided: 100 Instrument Used: 5mm curette Tissue Removed: yellow slough, devitalized tissue Severity: Fat Layer Exposed Amount of bleeding with debridement: Mild Bleeding Controlled with: Compression and gauze Patient tolerated procedure: Patient tolerated procedure well - Additional Wound Wound debrided: right medial LE cluster Laterality: Right Type of Debridement: Excisional debridement Anesthesia Used: 5% Lidocaine Gel Depth: Down to and including healthy tissue, in the subcutaneous layer Percentage of wound debrided: 100 Instrument Used: 5mm curette Tissue Removed: yellow slough, devitalized tissue Severity: Fat Layer Exposed Amount of bleeding with debridement: Mild Bleeding Controlled with: Compression and gauze Patient tolerated procedure: Patient tolerated procedure well Assessment/Plan Active Problems Ulcer of right lower extremity with fat layer exposed (Chronic) Venous insufficiency of both lower extremities (Chronic) Edema of both legs (Chronic) Cellulitis of both lower extremities (Chronic) Mental deficiency (Chronic) Assessment: This is a 57-year-old developmentally/intellectually disabled male who presents with venous ulcers of his b/l LE. Plan: Alley's wounds have been evaluated and debrided. Will dress his wounds with Aquacel Extra and have him wear double layer tubigrips. He has been instructed to elevate his lower extremities as much as possible, even during daytime hours. Advised him to shower and change his clothing on a more frequent basis. Activity has been encouraged. Patient has been advised to elevate his lower extremities to heart level as much as possible. He has been advised to refrain from prolonged idle sitting. Despite these recommendations, the patient is poorly compliant, and his cognitive disability appears to be an impediment to his compliance with recommended measures. F/U in 1 week. 12/31/17 1754 <Electronically signed by Nydia Sr DO> Date Nydia Sr DO CC: Signed VENOUS DUPLEX LOWER Observed: 12/29/2017 Status: F Source: [place] EXTREMITY 5:52 PM [facility] REPOSITORY [facility] [place] [address] Venous Duplex - Leonardo Extrem 12/28/17 1025 MR#: [id number] Acct: [id number] Name: ALLEY FORTE Rep #: [id number] : 1960 57 From: Rolando De Leon MD Attending Dr: Ashelfah,Ghasem Status: DIS IN Ordering Dr: Shreya Jacob MD Date: 12/27/17 Location: [facility] Sex: M C Admitted: 12/27/17 Reason For Study: LEG SWELLING RIGHT LEFT GSV is normal. GSV is normal. CFV is compressible, spontaneous, phasic, CFV is compressible, spontaneous, phasic, competent and demonstrates normal competent, and demonstrates normal augmentation. augmentation. FV is compressible, spontaneous, phasic, FV is compressible, spontaneous, phasic, competent and demonstrates normal competent and demonstrates normal augmentation. augmentation. POP V is compressible, spontaneous, phasic, POP V is compressible, spontaneous, phasic, competent and demonstrates normal competent and demonstrates normal augmentation. augmentation. T/P Trunk is compressible. T/P Trunk is compressible. PTV is compressible. PTV is compressible. RT PerV is compressible. LT PerV is compressible. Procedure Exam performed portable in patient room. A preliminary report was called and/or faxed to [facility]. Interpretation Summary Deep veins of the lower extremities are bilaterally patent and compressible segmentally. There is no evidence of deep vein thrombosis on either side. Valvular competence appears intact within the proximal deep venous systems bilaterally. The greater saphenous veins appear bilaterally patent and compressible segmentally. Ordering Physician: Shreya Jacob Referring Physician: MD Saul Bowen Performed By: Coco Heck RVT 12/29/17 7544 Date Rolando De Leon MD CC: Mari Grant; Wilfredo Bowen MD; Shreya Jacob MD Date Dictated: 12/28/17 1025 Date Transcribed: 12/29/17 1751 Pulley Mortiser Operator: Signed DISCHARGE SUMMARY Observed: 12/29/2017 Status: F Source: [facility]O 1:31 PM [facility] REPOSITORY [facility] Medical Records Department [address] [place] [address] Discharge Summary 12/29/17 1034 MR#: [id number] Acct: [id number] Name: ALLEY FORTE Rep #: [id number] : 1960 57 From: Romy Ortiz AV SPECIALIST-C PCP: Wilfredo Bowen MD Status: ADM IN Y Location: WI3 [id number] <Roym Ortiz - Last Filed: 12/29/17 10:48> Discharge Date and Diagnosis Date of Admission: 12/27/17 Date of Discharge: 12/29/17 - Primary Discharge Diagnosis Active and Suspected Problems 1. Acute bilateral lower extremity cellulitis with associated ulcerations due to trauma from patient picking, failed outpatient antibiotic therapy-limited to breakdown of skin. 2. Elevated hemoglobin A1c - Secondary Discharge Diagnosis Chronic Problems Noncompliance (Chronic) Leg swelling (Chronic) Edema of both legs (Chronic) Mental deficiency (Chronic) HTN (hypertension) (Chronic) Hospital Course and Treatment Consultations 12/27/17 20:12 Consult: Onc/Wound/setter [employer] Routine Comment: Operations: None Procedures: None Summary of Care Provided: 1. Acute bilateral lower extremity cellulitis with associated ulcerations due to trauma from patient picking, failed outpatient antibiotic therapy with cephalexin and doxycycline-limited to breakdown of skin. Previous lower extremity wound culture is positive for staph aureus. Bilateral lower extremity duplex ultrasound negative for DVT. MRSA PCR negative. S. aureus protein positive. Blood cultures pending. Wound culture shows no growth. Patient will continue daily dressing changes at discharge. Follow-up with wound center on 12/31/2017. Patient will be discharged on Augmentin 875 mg twice daily for 10 days. Instructed patient on the importance of keeping legs wrapped and not picking ulcerations. Patient will be discharged with home health services. 2. Hypertension-stable, continue home lisinopril regimen. 3. MRDD, appears highly functioning, unknown severity. 4. Elevated hemoglobin [id number] A1c 6.4%. Recommend carb control diet and repeat hemoglobin A1c by primary care physician. Patient may require oral agent to further reduce A1c. Continue follow-up with primary care physician. General: Alert, Oriented x3, Cooperative HEENT: Atraumatic, PERRLA, EOMI, Normocephalic Neck: Supple, No JVD, Negative Carotid Bruits Lungs: Clear to auscultation, Normal air movement Cardiovascular: Regular rate, Regular Rhythm, Normal S1, Normal S2, No murmurs Abdomen: Bowel Sounds Present, Soft, Non Tender, Non-Distended Extremities: No clubbing, No cyanosis, No edema, Capillary Refill Less than 3 Seconds Skin: - - Bilateral lower extremity dressings clean dry and intact. Musculoskeletal: No Tenderness to Palpation of Joints or Extremities Neurological: Cranial nerves II-XII grossly intact Psych/Mental Status: Normal Affect, Appropriate Patient seen exam prior to discharge. Physical assessment as noted above. Patient stable for discharge home with further oral antibiotic therapy and follow- up with wound care and primary care physician. This patient was seen by WILVER Weeks under the supervision of Dr. Grant. Discharge Diet: Carb Control Diet Discharge Activity: Return to Normal Activity Call your doctor if you observe: Fever of 101 or Higher, Shortness of breath, Dizziness, Fainting spells, Chest pain, Calf discomfort Home Medications: Medications to take at Discharge Lisinopril [Zestril] 10 mg PO DAILY 12/15/16 Mupirocin [Bactroban] 1 applic TOPICAL TID 12/27/17 Amox/Clavulanate Tablet [Augmentin Tablet] 875 mg PO Q12H #20 tab 12/29/17 Following Prescrptions Were Given to Patient: Amox/Clavulanate Tablet [Augmentin Tablet] 875 mg PO Q12H #20 tab Primary Care Physician: Wilfredo Bowen MD [Primary Care Provider] - Please follow up with your Primary Care Physician in: 1 Week Please Follow Up With: Wound Center When: As scheduled, 12/31/2017 Disposition: Home with Home Health Minutes spent on discharge:: 35 Patient Condition:: Stable Medical Necessity - Tobacco Use Smoking Status: Never smoker Meaningful Use Info Meaningful Use Diagnoses (Choose all that apply): None applicable <Mari Grant E - Last Filed: 12/29/17 13:31> Discharge Date and Diagnosis - Secondary Discharge Diagnosis Chronic Problems Noncompliance (Chronic) Leg swelling (Chronic) Edema of both legs (Chronic) Mental deficiency (Chronic) HTN (hypertension) (Chronic) Hospital Course and Treatment Consultations 12/27/17 20:12 Consult: Onc/Wound/setter [employer] Routine Comment: Summary of Care Provided: Hospitalist note: Discharge summary above reviewed as well as physical examination and I agree with above discharge and treatment plan. He was admitted because of redness and swelling of both lower extremities and patient has been picking his skin and he failed outpatient therapy with Keflex and doxycycline. He was found to have acute bilateral lower extremity cellulitis. He was treated with IV cefazolin. His vital signs are stable throughout admission and there was no evidence of sepsis or sepsis. Blood cultures with no growth up to the time of discharge. Wound culture revealed no organism. With IV antibiotic therapy, erythema and swelling of both legs improved. Wound care nurse consulted and appropriate dressing for the both legs was performed. Today, the wound care nurse mentioned that the wounds of both legs are significantly improved. Patient discharged home home health in stable condition, discharged on Augmentin twice daily for 10 days of treatment, recommended follow-up with PCP in 1 week and follow-up with wound care center regarding his leg wounds. - Physical Exam General: Alert, Oriented x3, Cooperative, No apparent distress. HEENT: Atraumatic, PERRLA, EOMI. Neck: Supple, No JVD, Negative Carotid Bruits, Trachea Midline, Thyroid Normal. Lungs: Clear to auscultation, Normal air movement, No rhonchi, No wheeze, No rales. Cardiovascular: Regular rate, Regular Rhythm, Normal S1, Normal S2, PMI Normal. Abdomen: Bowel Sounds Present, Soft, Non Tender, Non-Distended, No Hepato-splenomegaly. Extremities: No clubbing, No cyanosis, No edema Skin: No rashes, superficial small ulcerations on both legs. Neurological: Neuro grossly intact Vital Signs are stable. This note was generated with [employer] dictation software. It may contain incorrect words, spelling, and punctuation that were not noted in checking the note before signing. Minutes spent on discharge:: 25 Patient Condition:: Stable Meaningful Use Info Meaningful Use Diagnoses (Choose all that apply): None applicable Code Visit Inpatient E AND M: 85716 Disch Hosp 12/29/17 1049 <Electronically signed by Romy PETTIT> Date Romy WADDELLC 12/29/17 1331<Electronically signed by Mari Grant MD> Cosigner Signature (if applicable): Date Mari Grant MD CC: WILVER Ortiz; Mari Grant; Wilfredo Bowen MD Signed DISCHARGE INSTRUCTION Observed: 12/29/2017 Status: F Source: DELRAY 10:33 AM [facility] REPOSITORY [facility] Medical Records Department [address] [place] [id number] Instructions for Home/Discharge Instructions 12/29/17 1029 MR#: [id number] Acct: [id number] Name: ALLEY FORTE Rep #: [id number] : 1960 57 From: Romy PETTIT PCP: Wilfredo Bowen MD Status: ADM IN - Discharge Diagnoses Current Active Problems: Current Active and Chronic Problems Cellulitis of both lower extremities (Acute) You will use the following diet at home:: Calorie/Carbohydrate Controlled (specify 1200, 1400, etc) Discharge Activity: Return to Normal Activity Call your doctor if you observe: Fever of 101 or Higher, Shortness of breath, Dizziness, Fainting spells, Chest pain, Calf discomfort Additional Instructions: You will need to clean both lower extremities daily and apply dry dressings and Bao wraps. Follow up with wound clinic. Your hemoglobin A1c which is used to test for diabetes was mildly elevated. Recommend carb control diet and follow-up with primary care physician to further evaluate this. Allergies/Adverse Reactions: Allergies No Known Allergies Allergy (Verified 06/20/17 13:34) Medications to take at Discharge Lisinopril [Zestril] 10 mg PO DAILY 12/15/16 Mupirocin [Bactroban] 1 applic TOPICAL TID 12/27/17 Amox/Clavulanate Tablet [Augmentin Tablet] 875 mg PO Q12H #20 tab 12/29/17 The following prescriptions were given: Amox/Clavulanate Tablet [Augmentin Tablet] 875 mg PO Q12H #20 tab Primary Care Physician: Wilfredo Bowen MD [Primary Care Provider] - Please follow up with your Primary Care Physician in: 1 Week Test Results: Test results from this visit will be discussed in further detail at your follow-up appointment, if applicable. Please Follow Up With: Wound Center When: As scheduled, 12/31/2017 Proposed Discharge Date: 12/29/17 12/29/17 1033 <Electronically signed by Romy PETTIT> Date Romy PETTIT CC: Wilfredo Bowen MD MRSA WOUND DNA BY Collected: 12/28/2017 Status: F Source: [facility] PCR 7:45 AM [facility] REPOSITORY TYPE CODE TESTS RESULT OUT OF RANGE REFERENCE UNITS LAB L8200.1100 Negative Normal MRSA Negative RESULT LAB L8200.1150 Negative High SA RESULT POSITIVE Performed By: #### L8200.1075, M100.1400 #### [facility] Laboratory [address] [place], [address] Observed: 12/28/2017 Status: F Source: [facility] CULTURE, WOUND 7:45 AM [facility] REPOSITORY Comments: right leg Gram Stain Gram Stain No organisms seen Wound Culture No growth aerobically. Performed By: #### L8200.1075, M100.1400 #### [facility] Laboratory [address] [place], [address] HEMOGLOBIN A1C Collected: 12/27/2017 Status: F Source: HAO 9:15 PM [facility] REPOSITORY TYPE CODE TESTS RESULT OUT OF RANGE REFERENCE UNITS LAB L501.9985 4.2-6.3 % High HGB A1C 6.4 Performed By: #### L501.9985 #### [facility] [address] [place], [address] Observed: 12/27/2017 Status: F Source: [place]O CULTURE, BLOOD (WB) 9:15 PM [facility] REPOSITORY Has pt arrived? Y BC No growth in 5 days. Performed By: #### M200.1000 #### [facility] [address] [place], [address] HISTORY AND PHYSICAL Observed: 12/27/2017 Status: F Source: [facility] EXAM 9:08 PM [facility] REPOSITORY [facility] Medical Records Department [address] [place] [address] History and Physical 12/27/17 191 MR#: [id number] Acct: [id number] Name: ALLEY FORTE Rep #: [id number] : 1960 57 From: Shreya Jacob MD PCP: Wilfredo Bowen MD Status: ADM IN Y Location: [place] [id number] Problem List (1) Cellulitis of both lower extremities Status: Acute History of Present Illness Date of Admission: 12/27/17 Chief Complaint: redness and swelling of both lower extremities The patient is a 57 year old M with a history of hypertension and MRDD. He was admitted via the ED on 12/27/2017 with a complaint of redness and swelling of both lower extremities. Patient was accompanied by his fgkwhm-wo-ein will give the history as patient could not really give much of history. Symptoms started about 2 weeks ago and the attributed to patient's incessant picking of his lower extremities. The redness and swelling progressively worsened as well as pain, with associated pus discharge from areas of ulceration. He was taken to an urgent care center last week and sent home on p.o. doxycycline and Keflex. Symptoms however worsened and so they decided to bring him to the ED today. He had no associated fever or chills, no cough or chest pain, no shortness of breath, no abdominal pain, no diarrhea vomiting. Patient does have a history of recurrent cellulitis due to this incessant picking. Review of systems otherwise negative. In the ED, vitals were significant for temperature of 98 Fahrenheit, blood pressure 139/74, pulse rate of 18 respiratory rate of 16. White cell count was elevated at 14.2. Given a dose of IV vancomycin and Unasyn in the ED and is been admitted to be managed for cellulitis of both lower extremities. [] Past Medical History Past Medical History (Chronic Problems): Chronic Problems Noncompliance (Chronic) Leg swelling (Chronic) Edema of both legs (Chronic) Mental deficiency (Chronic) HTN (hypertension) (Chronic) Allergies No Known Allergies Allergy (Verified 06/20/17 13:34) Home Medications: Ambulatory Orders Medication Instructions Recorded Surgical History: tonsillectomy Psychiatric History: - - MRDD Lives: With Family - with father Smoking Status: Never smoker Alcohol: None Drugs: None - *Family History Paternal History Items: - - No heart disease. Patient's father is alive, aged 90, and healthy. Maternal History Items: Diabetes, - - History of cardiac disease Review of Systems Constitutional: Denies: Chills, Fever, Weight Change Eyes: Denies: Blurred vision HEENT: Denies: Head Aches, Sinus Congestion, Sinus Drainage Cardiovascular: Denies: Chest Pain, Palpitations Respiratory: Denies: Cough, Shortness of breath at rest, Sputum production Gastrointestinal: Denies: Abdominal Pain, Nausea, Vomiting Genitourinary: Denies: Dysuria Musculoskeletal: Denies: Joint Pain, Joint Tenderness Skin: Reports: - - bilateral lower extremity pain, redness and swelling Neurological: Denies: Numbness, Tingling, Focal weakness Psychiatric: Denies: Anxiety, Depression, Homicidal Ideations, Suicidal Ideations Hematologic/ Lymphatic: Denies: Easy Bruising, Easy Bleeding VTE Information - Inpt Only VTE Present on Admission: No VTE Mechan Device Prophylaxis: SCD's, None VTE Pharm Prophylaxis ordered?: Yes Patient Problems: Active and Suspected Problems Cellulitis of both lower extremities (Acute) - Physical Exam General: Alert, Cooperative, No apparent distress HEENT: Atraumatic, PERRLA, EOMI, Normocephalic Oral: Moist Mucosa Neck: Supple, No JVD, Negative Carotid Bruits Lungs: Clear to auscultation, Normal air movement, No rhonchi, No wheeze Cardiovascular: Regular rate, Regular Rhythm, Normal S1, Normal S2, No murmurs Abdomen: Bowel Sounds Present, Soft, Non Tender, Non-Distended, No Hepato-splenomegaly Extremities: No edema, Capillary Refill Less than 3 Seconds Skin: - - bilateral LE redness, extending from ankle to midshin. Right lower extremity is more swollen than the left. healing superficial ulcerations and abrasions on both lower extremities. Both LEs are warm to touch. dry pus-like discharge on LEs Musculoskeletal: No Tenderness to Palpation of Joints or Extremities Lymphatic: No Cervical, Supraclavicular, or Inguinal Adenopathy Neurological: Cranial nerves II-XII grossly intact Psych/Mental Status: Normal Affect, Appropriate, Alert and oriented to time, place, person, mood and affect Vital Signs Temp Pulse Resp BP Pulse Ox 98 F 83 16 134/83 H 98 12/27/17 15:43 12/27/17 19:07 12/27/17 19:07 12/27/17 19:07 12/27/17 19:07 Oxygen Delivery Method Room Air Weight: 235 lb Body Mass Index (BMI) 34.7 Laboratory Tests Past 24 Hrs WBC 14.2 H RBC 4.54 L Hgb 14.0 Hct 41.6 WBC RBC Hgb Assessment/Plan All Active Problems Ulcer of right calf (Resolved) Cellulitis of both lower extremities (Acute) Ulcer of left lower leg (Resolved) Constipation (Acute) Abdominal pain (Acute) Left leg cellulitis (Resolved) Sepsis (Acute) 79-year-old male presenting with lower extremity redness, swelling and pain of 2 weeks duration. 1. Cellulitis of both lower extremities * Likely due to trauma as patient is always picking at his legs * No assisted fever or chills. White cell count elevated at 14.2. * Will admit to MedSurg unit. Area of redness demarcated to monitor for resolution. * Received 1 dose of IV vancomycin and Unasyn in the ED. Has a history of MRSA according to family * will get blood cultures * Will continue IV vancomycin, pharmacy to dose. * To keep lower extremities elevated. * Counseled to stop picking at his lower extremities. * Will get duplex of lower extremities to rule out any DVT as right lower extremities is simply most swollen than left lower extremity. * Will check A1c * 2. hypertension * fairly controlled. On lisinopril; will continue. * * 3.MRDD: stable 4. Code status: Patient's jizlih-vt-kow counseled extensively about CODE STATUS, the different types and definitions. Patient currently lives with his 90-year-old father. [id number]-[id number]-dyh states that he wishes that patient remains full code. This note was generated with [employer] dictation software. It may contain incorrect words, spelling, and punctuation that were not noted in checking the note before signing. Code Visit Inpatient E AND M: 54787 Init Hosp L3 12/27/178 <Electronically signed by Shreya Jacob MD> Date Shreya Jacob MD Cosigner Signature: Date (if applicable) CC: Wilfredo Bowen MD; Shreya Jacob MD Signed EMERGENCY DEPARTMENT Observed: 12/27/2017 Status: F Source: DELRAY SUMMARY 7:07 PM [facility] REPOSITORY [facility] Medical Records Department [address] [place] [address] Emergency Department Summary 12/27/17 1903 MR#: [id number] Acct: [id number] Name: ALLEY FORTE Rep #: [id number] : 1960 57 From: Paige Persaud DO PCP: Wilfredo Bowen MD Status: REG ER - ER Visit Summary Date of Service: 12/27/17 Chief Complaint: [Redness and swelling to both lower extremities] History of Present Illness: The patient is a 57 M [presents the emergency department with complaint of redness and swelling to his lower extremities for the last 3 weeks. Patient apparently picks at his lower extremities frequently per family member. Patient was seen at an urgent care 5 days ago and started on Keflex and doxycycline however that they have not seen much improvement in the patient's legs. Patient has not been running a fever. Patient scheduled to see the wound center in 4 days.] Physical Examination: [HEENT-PERRLA, EOMI. Cranial nerves II through XII grossly intact. TMs clear. Mucous membranes moist. No adenopathy. Cardiovascular-regular rate and rhythm without murmur or ectopy Lungs-clear to auscultation, chest wall stable without crepitus or subcu emphysema Abdomen-normoactive bowel sounds, soft, nontender, no rebound or rigidity, no peritoneal signs. Extremities-intact 4, normal range of motion, normal pulses. Patient has diffuse erythema to both lower extremities from inferior to the knee to the feet. Patient has multiple excoriated lesions noted that are weeping. Test Results: [CBC with differential obtained showed a white count of 14,000, hemoglobin 14, hematocrit 42, platelets 270. Chemistries and lactate pending] Emergency Department Course and Treatment: [Patient was started on vancomycin and Unasyn Treatment Plan: [Admit] Disposition: Admit [] Impression: [Bilateral lower extremity cellulitis-failed outpatient therapy] This note was generated with [employer] dictation software. It may contain incorrect words, spelling, and punctuation that were not noted in review of the chart prior to signing ED Disposition - Plan for ED Patient: Chief Complaint: Cellulitis Referrals: Wilfredo Bowen MD [Primary Care Provider] - What to do if you have Problems For any increased pain, shortness of breath, bleeding, nausea or vomiting, chest pain, or any unexpected problems, contact your Primary Care Provider. Call [facility] ([phone]) or report to the closest Emergency Room. Call 911 if necessary. 12/27/171906 <Electronically signed by Paige Persaud DO> Date Paige Persaud DO Cosigner Signature (If Indicated): Date CC: Wilfredo Bowen MD BASIC METABOLIC Collected: 12/27/2017 Status: F Source: [facility] PROFILE (BMP) 6:26 PM [facility] REPOSITORY Order Comment: REDRAW. PREVIOUS SPECIMEN REJECTED DUE TO HEMOLYSIS. 12/27/17 8768 TYPE CODE TESTS RESULT OUT OF RANGE REFERENCE UNITS LAB L501.0100 74-106 mg/dL Normal GLU 77 Result Comment: Please note revised GLUCOSE reference range effective 2017. LAB L501.1000 7-18 mg/dL Normal BUN 11 LAB L501.1100 0.70-1.30 mg/dL Normal CREAT,SERUM 0.90 Result Comment: The validity of the calculated GFR AND GFRAA in patients over 70 years has not been determined. Clinical correlation is essential. LAB L501.1110 >60 mL/min Normal EST GFR 92 Result Comment: Non- GFR Calc LAB L501.1115 >60 mL/min Normal EST GFR - AA 111 Result Comment: GFR Calc LAB L501.1255 ml/min Normal Estimated CRCL 89.47 LAB L501.1300 10-20 RATIO Normal BUN/CRE 12.2 LAB L501.2200 8.5-10 mg/dL Normal .1 CA 8.9 LAB L501.5300 136-14 mmol/L Normal 5 NA 141 LAB L501.5600 3.5-5. mmol/L Normal 1 K 4.6 Result Comment: Moderate Hemolysis, Result may be falsely increased. LAB L501.5900 98-107 mmol/L Normal CL 107 LAB L501.6100 21.0-32.0 mmol/L Normal CO2 30.0 LAB L501.6200 5-15 Low 4 GAP Performed By: #### L500.2500 #### [facility] Laboratory [address] [place], [place], [address] LACTIC ACID Collected: 12/27/2017 Status: F Source: DELRAY 6:26 PM [facility] REPOSITORY Order Comment: Yes/No query for Sepsis Lactate Rule Y TYPE CODE TESTS RESULT OUT OF RANGE REFERENCE UNITS LAB L503.6005 0.4-2.0 mmol/L Normal LACTIC ACID 1.3 Performed By: #### L503.6005 #### [facility] [address] [place], [place], [id number] CBC W/DIFF, AUTOMATED Collected: 12/27/2017 Status: F Source: [place] 5:29 PM [facility] REPOSITORY TYPE CODE TESTS RESULT OUT OF RANGE REFERENCE UNITS LAB L100.1000 4.4-11.0 K/mm3 High WBC 14.2 LAB L100.1200 4.6-6.2 M/mm3 Low RBC 4.54 LAB L100.1300 13.0-16.5 g/dl Normal HGB 14.0 LAB L100.1400 40-54 % Normal HCT 41.6 LAB L100.1500 80-94 fL Normal MCV 91.6 LAB L100.1600 27.0-32.0 pg Normal MCH 30.8 LAB L100.1700 32-36 g/gl Normal MCHC 33.7 LAB L100.1810 11.6-14.6 % Normal RDW CV 14.1 LAB L100.1820 35.1-43.9 fl High RDW SD 46.2 LAB L100.1900 150-450 K/mm3 Normal PLT 270 LAB L100.2000 6.2-12.0 fl High MPV 12.2 LAB L100.2100 47-70 % Low NEUT% 43.7 LAB L100.2200 19-41 % High LY% 48.7 LAB L100.2300 0-10 % Normal MONO% 6.1 LAB L100.2400 0-5 % Normal EO% 1.2 LAB L100.2500 0-1 % Normal BASO% 0.2 LAB L100.2550 0.0-0.9 % Normal IM GRAN % 0.100 Result Comment: IG% - Immature Granulocytes (promyelocytes, myelocytes and metamyelocytes) > 1% indicates that a LEFT SHIFT is Present. LAB L100.2620 2.0-7.7 X10 3/uL Normal Absolute Neut 6.2 LAB L100.2720 0.83-4.51 X10 3/ul High Absolute Lymph 6.89 LAB L100.4500 SMEAR Normal COMMENT Result Comment: LYMPHOCYTOSIS NOTED Performed By: #### L100.0100 #### [facility] [address] [place], [address] PROGRESS Observed: 12/21/2017 Status: COMPLETED Source: [place] 5:12 PM [facility] REPOSITORY HNO ID: [id number] Author: Alix Baltazar Service: (none) Author Type: Nurse Practitioner Type: Progress Notes Filed: 12/21/2017 5:30 PM Note Text: Subjective HPI HPI Alley Forte is a 57 year old male who presents today for CC of leg sores. This started months ago, he has been working with the wound center at [facility] over the past year for lower leg wound sores, were getting betting in November, and released. However patient quit changing dressings, and taking medications, and sores have worsened, with increasing redness. He is also having redness, and serosanguinous drainage from wounds. Symptoms are worsened by nothing He has tried no treatment or medications Risk factors patient picks at sores. PMH not significant. BP 142/96 Pulse 68 Temp 36.9 ?C (98.4 ?F) Resp 8 Wt 106.6 kg (235 lb) BMI 34.70 kg/m? ALLERGIES No Known Allergies ACTIVE PROBLEM LIST Developmental Delay, Mild Essential Hypertension Family History Problem Relation Age of Onset - Cancer Father Skin - Heart Mother cardiomyopathy Social History Marital status: Single Spouse name: Years of education: Number of children: Social History Main Topics Smoking status: Never Smoker Smokeless tobacco: Never Used Alcohol use: No Drug use: No Sexual activity: No Social History Narrative Lives with father, mother . Watches TV mostly. Walks. Review of Systems Constitutional: Negative for chills, fever and malaise/fatigue. Genitourinary: Negative for dysuria. Musculoskeletal: Negative for joint pain and myalgias. Skin: Negative for rash. Sores and redness on lower legs Neurological: Negative for headaches. Objective Physical Exam Constitutional: He is oriented to person, place, and time and well-developed, well-nourished, and in no distress. No distress. HENT: Head: Normocephalic and atraumatic. Eyes: Conjunctivae and EOM are normal. Pupils are equal, round, and reactive to light. Neck: Normal range of motion. Neck supple. Pulmonary/Chest: Effort normal. Neurological: He is alert and oriented to person, place, and time. Skin: Skin is warm and dry. There is erythema. Psychiatric: Affect normal. Nursing note and vitals reviewed. ASSESSMENT/PLAN: 1. Sore on leg - ICD9: 709.9, ICD10: L98.9 Take antibiotics as directed Wound Care - Keep the area clean and dry -Clean with soap and water . Apply mupirocin ointment 2 - 3 times a day. -Tylenol or Ibuprofen for discomfort - DOXYCYCLINE MONOHYDRATE 100 MG CAPSULE - CEPHALEXIN 500 MG CAPSULE 2. Cellulitis of skin - ICD9: 682.9, ICD10: L03.90 - Begin treatment with keflex and doxycycline - No lymphangetic streaking, this was defined for patient to watch for and to seek medical care immediately if appears - Any worsening symptoms to ER - Area of cellulitis defined with pen, if this area continues to enlarges go to ER - DOXYCYCLINE MONOHYDRATE 100 MG CAPSULE - CEPHALEXIN 500 MG CAPSULE - MUPIROCIN 2 % TOPICAL OINTMENT Needs to be seen at wound center in next 24 - 48 hours - called and left message to have appointment soon. If not able to be seen needs recheck here at clinic scheduled for 12/23 Diagnosis and treatment plan were discussed and questions were answered to the patient's satisfaction. Pt acknowledged understanding of concepts and follow up plan. Specific signs and symptoms that would indicate the need for higher level of care were discussed in detail warranting prompt ER evaluation. Alix Baltazar APRN.CNP CNOV Observed: 12/21/2017 Status: COMPLETED Source: [place] 4:15 PM [facility] REPOSITORY Office Visit (WSTR) ALLEY FORTE ([id number]) 1960 M Date Time Provider Department 12/21/17 4:15 PM ALIX BALTAZAR (JENNYFER) WSTR During your visit today, we recorded the following information about you: Temperature Pulse Respiration Blood pressure 98.4 degrees 68/minute 8/minute 142/96 Weight 106.6 kg Alix Baltazar APRN.CNP 12/21/2017 4:49 PM Signed ASSESSMENT/PLAN: 1. Sore on leg - ICD9: 709.9, ICD10: L98.9 Take antibiotics as directed Wound Care - Keep the area clean and dry -Clean with soap and water . Apply mupirocin ointment 2 - 3 times a day. -Tylenol or Ibuprofen for discomfort - DOXYCYCLINE MONOHYDRATE 100 MG CAPSULE - CEPHALEXIN 500 MG CAPSULE 2. Cellulitis of skin - ICD9: 682.9, ICD10: L03.90 - Begin treatment with keflex and doxycycline - No lymphangetic streaking, this was defined for patient to watch for and to seek medical care immediately if appears - Any worsening symptoms to ER - Area of cellulitis defined with pen, seek further attention if this area continues to enlarge - DOXYCYCLINE MONOHYDRATE 100 MG CAPSULE - CEPHALEXIN 500 MG CAPSULE - MUPIROCIN 2 % TOPICAL OINTMENT Needs to be seen at wound center in next 24 - 48 hours If not able to be seen needs recheck here at clinic Alix Baltazar APRN.CNP 12/21/2017 5:30 PM Signed Subjective HPI HPI Alley Forte is a 57 year old male who presents today for CC of leg sores. This started months ago, he has been working with the wound center at [facility] over the past year for lower leg wound sores, were getting betting in November, and released. However patient quit changing dressings, and taking medications, and sores have worsened, with increasing redness. He is also having redness, and serosanguinous drainage from wounds. Symptoms are worsened by nothing He has tried no treatment or medications Risk factors patient picks at sores. PMH not significant. BP 142/96 Pulse 68 Temp 36.9 ?C (98.4 ?F) Resp 8 Wt 106.6 kg (235 lb) BMI 34.70 kg/m? ALLERGIES No Known Allergies ACTIVE PROBLEM LIST Developmental Delay, Mild Essential Hypertension Family History Problem Relation Age of Onset - Cancer Father Skin - Heart Mother cardiomyopathy Social History Marital status: Single Spouse name: Years of education: Number of children: Social History Main Topics Smoking status: Never Smoker Smokeless tobacco: Never Used Alcohol use: No Drug use: No Sexual activity: No Social History Narrative Lives with father, mother . Watches TV mostly. Walks. Review of Systems Constitutional: Negative for chills, fever and malaise/fatigue. Genitourinary: Negative for dysuria. Musculoskeletal: Negative for joint pain and myalgias. Skin: Negative for rash. Sores and redness on lower legs Neurological: Negative for headaches. Objective Physical Exam Constitutional: He is oriented to person, place, and time and well-developed, well-nourished, and in no distress. No distress. HENT: Head: Normocephalic and atraumatic. Eyes: Conjunctivae and EOM are normal. Pupils are equal, round, and reactive to light. Neck: Normal range of motion. Neck supple. Pulmonary/Chest: Effort normal. Neurological: He is alert and oriented to person, place, and time. Skin: Skin is warm and dry. There is erythema. Psychiatric: Affect normal. Nursing note and vitals reviewed. ASSESSMENT/PLAN: 1. Sore on leg - ICD9: 709.9, ICD10: L98.9 Take antibiotics as directed Wound Care - Keep the area clean and dry -Clean with soap and water . Apply mupirocin ointment 2 - 3 times a day. -Tylenol or Ibuprofen for discomfort - DOXYCYCLINE MONOHYDRATE 100 MG CAPSULE - CEPHALEXIN 500 MG CAPSULE 2. Cellulitis of skin - ICD9: 682.9, ICD10: L03.90 - Begin treatment with keflex and doxycycline - No lymphangetic streaking, this was defined for patient to watch for and to seek medical care immediately if appears - Any worsening symptoms to ER - Area of cellulitis defined with pen, if this area continues to enlarges go to ER - DOXYCYCLINE MONOHYDRATE 100 MG CAPSULE - CEPHALEXIN 500 MG CAPSULE - MUPIROCIN 2 % TOPICAL OINTMENT Needs to be seen at wound center in next 24 - 48 hours - called and left message to have appointment soon. If not able to be seen needs recheck here at clinic scheduled for 12/23 Diagnosis and treatment plan were discussed and questions were answered to the patient's satisfaction. Pt acknowledged understanding of concepts and follow up plan. Specific signs and symptoms that would indicate the need for higher level of care were discussed in detail warranting prompt ER evaluation. Alix Baltazar, LYLE.ETCHER APPRENTICE Referring Provider: SELF [[id number]] Allergies As of Date: 12/21/2017 (No Known Allergies) Date Reviewed: 12/21/2017 Reviewed by: Alix (Dual Rate Dealer) Delaney - Fully Assessed Reason for Visit: Wound Check [133] Cmt: bilateral leg sores Primary Visit Diagnosis:Sore on leg [L98.9] Other Visit Diagnosis:Cellulitis of skin [L03.90] Order(s):doxycycline monohydrate (MONODOX) 100 mg capsuleTake 1 capsule by mouth twice daily for 10 days.Disp: 20 capsuleRfl: 0 cephALEXin (KEFLEX) 500 mg capsuleTake 1 capsule by mouth three times daily for 10 days.Disp: 30 capsuleRfl: 0 mupirocin (BACTROBAN) 2 % ointmentApply 1 application to affected area three times daily. Location: legsDisp: 30 gRfl: 0 Prescriptions as of 12/21/2017 Sig: LISINOPRIL 10 MG TABLET Take 1 tablet by mouth once d* DOXYCYCLINE MONOHYDRATE 100 M* Take 1 capsule by mouth twice* CEPHALEXIN 500 MG CAPSULE Take 1 capsule by mouth three* MUPIROCIN 2 % TOPICAL OINTMENT Apply 1 application to affect* NON-ADHERENT BANDAGE 2 X 3 Apply over the silvadine crea* SILVER SULFADIAZINE 1 % TOPIC* Apply 1 application to affect* COMPOUNDED PRESCRIPTION 4x4 gauze, 4 inch roll gauze,* Problem List As Of Date 12/21/2017 Noted Resolved Developmental delay, mild [R62.50] INVALID FOR* Essential hypertension [I10] INVALID FOR* Other instructions from your clinician: ASSESSMENT/PLAN: 1. Sore on leg - ICD9: 709.9, ICD10: L98.9 Take antibiotics as directed Wound Care - Keep the area clean and dry -Clean with soap and water . Apply mupirocin ointment 2 - 3 times a day. -Tylenol or Ibuprofen for discomfort - DOXYCYCLINE MONOHYDRATE 100 MG CAPSULE - CEPHALEXIN 500 MG CAPSULE 2. Cellulitis of skin - ICD9: 682.9, ICD10: L03.90 - Begin treatment with keflex and doxycycline - No lymphangetic streaking, this was defined for patient to watch for and to seek medical care immediately if appears - Any worsening symptoms to ER - Area of cellulitis defined with pen, seek further attention if this area continues to enlarge - DOXYCYCLINE MONOHYDRATE 100 MG CAPSULE - CEPHALEXIN 500 MG CAPSULE - MUPIROCIN 2 % TOPICAL OINTMENT Needs to be seen at wound center in next 24 - 48 hours If not able to be seen needs recheck here at clinic Prescriptions ordered this encounter Disp Refills Start End DOXYCYCLINE MONOHYDRATE 100 MG CAPSU* 20 c* 0 12/21/2017 12/31/2017 Route: ORAL Sig: Take 1 capsule by mouth twice daily for 10 days. CEPHALEXIN 500 MG CAPSULE 30 c* 0 12/21/2017 12/31/2017 Route: ORAL Sig: Take 1 capsule by mouth three times daily for 10 days. MUPIROCIN 2 % TOPICAL OINTMENT 30 g 0 12/21/2017 Route: TOPICAL Sig: Apply 1 application to affected area three times daily. Location: legs Encounter Status:Closed by ALIX BALTAZAR CNP on 12/21/17 CNPN Observed: 11/15/2017 Status: COMPLETED Source: [place] 12:00 AM [facility] REPOSITORY Telephone ([employer]) ALLEY FORTE ([id number]) 1960 M Date Time Provider Department 11/15/17 SAUL BOWEN [employer] During your visit today, we recorded the following information about you: Justino Dunn 11/15/2017 10:51 AM Signed Received forms to be completed for court guardianship from pt. Placed in provider's inbox for signature. Route to ME to notify Huy or Arthur of completion. #[phone] Saul Bowen MD 11/15/2017 12:54 PM Signed PT has known developmental delay MD Justino Dean 11/15/2017 4:29 PM Addendum Forms completed by Dr Bowen. Placed at front desk coordinator for pick and shovel man. No fax or request to mail was received. Called pt and left VM. Copy sent to scanning and copy kept in desk for records. Adrienne Debra Accountant Manager Psr 11/17/2017 7:19 PM Signed Received waitlst request stating the following: DUNG THE PATIENTS SISTER IN LAW WAS TRYING TO RETURN THE CALL HOWEVER THERE IS NO WAY TO GET IN TOUCH WITH THE [place] OFFICE , SHE WAS ON HOLD FOR 20 MINUTES. DUNG STATED ITS OK TO MAIL THE COURT FORMS TO THE PATIENT [address] [place] [id number] Called patient and he said he wants a copy mailed to him and then saw to call Huy Gibson so called them to notify that I will be sending the original to their address. Allergies As of Date: 11/15/2017 (No Known Allergies) Date Reviewed: 10/27/2017 Reviewed by: Dimitry Barrow Ma - Fully Assessed Reason for Visit: Forms [913] Cmt: Vanessa Cristina Prescriptions as of 11/15/2017 Sig: COMPOUNDED PRESCRIPTION Apply 1 application to affect* NON-ADHERENT BANDAGE 2 X 3 Apply over the silvadine crea* LISINOPRIL 10 MG TABLET Take 1 tablet by mouth once d* SILVER SULFADIAZINE 1 % TOPIC* Apply 1 application to affect* COMPOUNDED PRESCRIPTION 4x4 gauze, 4 inch roll gauze,* Problem List As Of Date 11/15/2017 Noted Resolved Developmental delay, mild [R62.50] INVALID FOR* Essential hypertension [I10] INVALID FOR* Encounter Status:Closed by PROGRAM MANUFACTURING LEADER ADRIENNE MOON on 11/17/17 PROGRESS Observed: 10/27/2017 Status: COMPLETED Source: [place] 1:43 PM [facility] REPOSIT[facility] O ID: [id number] Author: Lina Thompson (Dual Rate Dealer) Jazmin Service: (none) Author Type: Nurse Practitioner Type: Progress Notes Filed: 10/27/2017 1:49 PM Note Text: HPI/CC: Alley Forte is a 57 year old male who presents for Refill Request and LEONARDO leg cellulitis evaluation. bilateral LE edema, erythema and open wounds. This is a chronic issue for patient. Previously cared for by wound care- was discharged. Currently not treating. ROS as above, otherwise non-contributory. Reviewed PMHx, PSHx, social Hx, medications and allergies. PHYSICAL EXAMINATION: BP 138/82 (BP Site: Left Arm, BP Position: Sitting, BP Cuff Size: Large Adult) Pulse 76 Temp 36.6 ?C (97.9 ?F) (Temporal Artery) Resp 12 Wt 106.1 kg (233 lb 12.8 oz) SpO2 96% BMI 34.53 kg/m? General appearance: Well appearing, alert, in no acute distress, well-hydrated, well nourished. Skin: bilateral LE with +2 pitting edema, erythema and multiple wounds. Right LE with draining wounds. ASSESSMENT/PLAN: 1. Essential hypertension - ICD9: 401.9, ICD10: I10 (primary diagnosis) - good control - Continue current medication(s) - Recheck in 6 months, sooner should new symptoms or problems arise. - Goal of BP <140/90 - LISINOPRIL 10 MG TABLET 2. Cellulitis of skin - ICD9: 682.9, ICD10: L03.90 - Begin treatment with Trimethoprim-sulfamethozazole (Bactrim) 2 DS PO BID - Wound center - SILVER SULFADIAZINE 1 % TOPICAL CREAM - COMPOUNDED PRESCRIPTION - SULFAMETHOXAZOLE 800 MG-TRIMETHOPRIM 160 MG TABLET - patient bringing in guardianship forms for signature. I am not able to complete guardianship paperwork. Must be completed by PCP. - recommend f/u with PCP, est care with [facility] PCP as desired. Lina Wu APRN.CNP CNOV Observed: 10/27/2017 Status: COMPLETED Source: [place] 1:20 PM [facility] RE[facility] Office Visit (FAMPWS) FORTEALLEY R ([id number]) 1960 M Date Time Provider Department 10/27/17 1:20 PM [facility] your visit today, we recorded the following information about you: Temperature Pulse Respiration Blood pressure 97.9 degrees 76/minute 12/minute 138/82 Weight 106.1 kg Lina Wu APRN.CNP 10/27/2017 1:49 PM Signed HPI/CC: Alley Fotre is a 57 year old male who presents for Refill Request and LEONARDO leg cellulitis evaluation. bilateral LE edema, erythema and open wounds. This is a chronic issue for patient. Previously cared for by wound care- was discharged. Currently not treating. ROS as above, otherwise non-contributory. Reviewed PMHx, PSHx, social Hx, medications and allergies. PHYSICAL EXAMINATION: BP 138/82 (BP Site: Left Arm, BP Position: Sitting, BP Cuff Size: Large Adult) Pulse 76 Temp 36.6 ?C (97.9 ?F) (Temporal Artery) Resp 12 Wt 106.1 kg (233 lb 12.8 oz) SpO2 96% BMI 34.53 kg/m? General appearance: Well appearing, alert, in no acute distress, well-hydrated, well nourished. Skin: bilateral LE with +2 pitting edema, erythema and multiple wounds. Right LE with draining wounds. ASSESSMENT/PLAN: 1. Essential hypertension - ICD9: 401.9, ICD10: I10 (primary diagnosis) - good control - Continue current medication(s) - Recheck in 6 months, sooner should new symptoms or problems arise. - Goal of BP <140/90 - LISINOPRIL 10 MG TABLET 2. Cellulitis of skin - ICD9: 682.9, ICD10: L03.90 - Begin treatment with Trimethoprim-sulfamethozazole (Bactrim) 2 DS PO BID - Wound center - SILVER SULFADIAZINE 1 % TOPICAL CREAM - COMPOUNDED PRESCRIPTION - SULFAMETHOXAZOLE 800 MG-TRIMETHOPRIM 160 MG TABLET - patient bringing in guardianship forms for signature. I am not able to complete guardianship paperwork. Must be completed by PCP. - recommend f/u with PCP, est care with [facility] PCP as desired. Lina Wu APRN.ETCHER APPRENTICE Referring Provider: SELF [200] Allergies As of Date: 10/27/2017 (No Known Allergies) Date Reviewed: 10/27/2017 Reviewed by: Dimitry Barrow Ma - Fully Assessed Reason for Visit: Refill Request [94] LEONARDO leg cellulitis evaluation [Other] Primary Visit Diagnosis:Essential hypertension [I10] Other Visit Diagnosis:Cellulitis of skin [L03.90] Order(s):lisinopril (ZESTRIL, PRINIVIL) 10 mg tabletTake 1 tablet by mouth once daily.Disp: 90 tabletRfl: 1 silver sulfADIAZINE (SILVADENE,THERMAZENE) 1 % creamApply 1 application to affected area once daily. Apply to open area on the leg. Cover with a Telfa pad.Disp: 60 gRfl: 1 COMPOUNDED PRESCRIPTIONApply 1 application to affected area once daily. Wound center at [facility] for evaluation and treatmentDisp: 30 EachRfl: 1 sulfamethoxazole-trimethoprim (BACTRIM DS) 800-160 mg per tabletTake 1 tablet by mouth twice daily for 10 days.Disp: 20 tabletRfl: 0 Prescriptions as of 10/27/2017 Sig: LISINOPRIL 10 MG TABLET Take 1 tablet by mouth once d* COMPOUNDED PRESCRIPTION 4x4 gauze, 4 inch roll gauze,* NON-ADHERENT BANDAGE 2 X 3 Apply over the silvadine crea* SILVER SULFADIAZINE 1 % TOPIC* Apply 1 application to affect* COMPOUNDED PRESCRIPTION Apply 1 application to affect* SULFAMETHOXAZOLE 800 MG-TRIME* Take 1 tablet by mouth twice * Medication notes this encounter MUPIROCIN 2 % TOPICAL OINTMENT >> Dimitry Haumesser Kusum 10/27/2017 1:29 PM >> HAUMESSER AJAY NOEY WedOctober 27, 2017 1:29 PM No longer using. POTASSIUM CHLORIDE ER 20 MEQ TABLET,EXTENDED RELEASE(PART/CRYST) >> Dimitry Haumesser Kusum 10/27/2017 1:30 PM >> HAUMESSER KUSUM DIMITRY WedOctober 27, 2017 1:30 PM No longer taking. AMMONIUM LACTATE 12 % LOTION >> Dimirty Haumesser Kusum 10/27/2017 1:29 PM >> HAUMESSER KUSUM DIMITRY WedOctober 27, 2017 1:29 PM No longer using. DICLOFENAC 1 % TOPICAL GEL >> Dimitry Haumesser Kusum 10/27/2017 1:29 PM >> HAUMESSER KUSUM DIMITRY WedOctober 27, 2017 1:29 PM No longer using. SILVER SULFADIAZINE 1 % TOPICAL CREAM >> Dimitry Haumesser Wa 10/27/2017 1:30 PM >> HAUMESSER KUSUM DIMITRY WedOctober 27, 2017 1:30 PM No longer using. Problem List As Of Date 10/27/2017 Noted Resolved Developmental delay, mild [R62.50] INVALID FOR* Essential hypertension [I10] INVALID FOR* Prescriptions ordered this encounter Disp Refills Start End LISINOPRIL 10 MG TABLET 90 t* 1 10/27/2017 Route: ORAL Sig: Take 1 tablet by mouth once daily. SILVER SULFADIAZINE 1 % TOPICAL CREAM 60 g 1 10/27/2017 Route: TOPICAL Sig: Apply 1 application to affected area once daily. Apply to open area on the leg. Cover with a Telfa pad. COMPOUNDED PRESCRIPTION 30 E* 1 10/27/2017 11/26/2017 Route: TOPICAL Sig: Apply 1 application to affected area once daily. Wound center at [facility] for evaluation and treatment SULFAMETHOXAZOLE 800 MG-TRIMETHOPRIM* 20 t* 0 10/27/2017 11/06/2017 Route: ORAL Sig: Take 1 tablet by mouth twice daily for 10 days. Medications Discontinued During This Encounter mupirocin (BACTROBAN) 2 % ointment 30 g 0 02/23/2017 10/27/2017 Route: TOPICAL Sig: Apply 1 application to affected area three times daily. Location: leg Disc: Course of therapy completed potassium chloride ER (K-DUR, KLOR-C* 60 t* 2 09/10/2016 10/27/2017 Route: ORAL Sig: Take 1 tablet by mouth twice daily. Disc: Course of therapy completed ammonium lactate (LAC-HYDRIN) 12 % l* 120 g 2 08/28/2016 10/27/2017 Route: TOPICAL Sig: Apply 1 application to affected area as needed (to legs.). Disc: Course of therapy completed pantoprazole DR (PROTONIX) 20 mg tab* 10/27/2017 Class: Historical Med Route: ORAL Sig: Take 20 mg by mouth once daily. Disc: Course of therapy completed diclofenac sodium (VOLTAREN) 1 % top* 10/27/2017 Class: Historical Med Route: TOPICAL Sig: Apply 2 g to affected area four times daily. Disc: Course of therapy completed silver sulfADIAZINE (SILVADENE,THERM* 60 g 1 12/24/2015 10/27/2017 Route: TOPICAL Sig: Apply 1 application to affected area once daily. Apply to open area on the leg. Cover with a Telfa pad. Disc: Course of therapy completed lisinopril (ZESTRIL, PRINIVIL) 10 mg* 90 t* 1 09/10/2017 10/27/2017 Sig: TAKE ONE TABLET BY MOUTH ONCE DAILY Disc: Reason for discontinue is not on file. sulfamethoxazole-trimethoprim (BACTR* 20 t* 0 02/23/2017 10/27/2017 Cmt: Ok to give generic equivalent Route: ORAL Sig: Take 1 tablet by mouth twice daily for 10 days. Disc: Reason for discontinue is not on file. Encounter Status:Closed by LINA WU CNP on 10/27/17 WOUND CTR HISTORY Observed: 08/30/2017 Status: F Source: [facility] 4:04 PM [facility]IT[facility] [address] [place] [address] Wound Ctr History AND Physical 08/30/17 1555 MR#: [id number] Acct: [id number] Name: ALLEY FORTE Rep #: [id number] : 1960 57 From: Rolando De Leon MD PCP: Wilfredo Bowen MD Status: REG RCR Y Location: WC (1) Ulcer of right calf Status: Resolved Current Visit: Yes Qualifiers: Non-pressure ulcer stage: with fat layer exposed Qualified Code(s): L97.212 - Non-pressure chronic ulcer of right calf with fat layer exposed Code(s): L97.219 - Non-pressure chronic ulcer of right calf with unspecified severity (2) Ulcer of left lower leg Status: Resolved Current Visit: Yes Qualifiers: Non-pressure ulcer stage: with fat layer exposed Qualified Code(s): L97.922 - Non-pressure chronic ulcer of unspecified part of left lower leg with fat layer exposed Code(s): L97.929 - Non-pressure chronic ulcer of unspecified part of left lower leg with unspecified severity (3) Mental deficiency Status: Chronic Current Visit: Yes Code(s): F79 - Unspecified intellectual disabilities (4) Left leg cellulitis Status: Resolved Current Visit: Yes Code(s): L03.116 - Cellulitis of left lower limb (5) HTN (hypertension) Status: Chronic Current Visit: No Qualifiers: Hypertension type: essential hypertension Code(s): I10 - Essential (primary) hypertension (6) Noncompliance Status: Chronic Current Visit: Yes Code(s): Z91.19 - Patient's noncompliance with other medical treatment and regimen (7) Leg swelling Status: Chronic Current Visit: Yes Code(s): M79.89 - Other specified soft tissue disorders (8) Edema of both legs Status: Chronic Current Visit: Yes Code(s): R60.0 - Localized edema History of Present Illness Date of Service: 08/30/17 Chief Complaint: Large ulceration of the right lateral calf and 3 ulcerations of the left distal lower extremity; bilateral lower extremity swelling and edema; left lower extremity cellulitis History of Wound: This is a developmentally disabled 57-year-old male who presented with ulcerations of both lower extremities. These were relatively recent. The patient is a former patient at the [facility], treated for similar problems in the past. The patient sleeps in a recliner, and spends long hours each day and a sitting position. He has been advised to elevate his lower extremities to heart level, or higher. However, he is noncompliant, and resolutely refuses to do so. He lives with his father, who confirms his son's noncompliance, and indicates his inability to convince his son into applying with recommended measures. Patient has failed to elevate his lower extremities, spends long hours each day in a sitting position, and has not been wearing his compression stockings, as formerly recommended. He presented with bilateral lower extremity swelling and edema, which was worse in the right lower extremity, bilateral lower extremity ulcerations, and cellulitis of the left calf. The patient spends most of his day sitting around, watching TV. The patient is communicative, but is obviously developmentally disabled and with a diminished IQ. The patient has undergone a venous duplex examination which is completely normal. There is no evidence of superficial venous incompetence. The patient's noninvasive lower extremity arterial study is also normal, with triphasic waveforms at ankle level bilaterally, and normal ankle brachial indices bilaterally. We implemented 3M 2 layer compression wraps to each lower extremity, changed twice weekly. Silver gisel was used topically on the lower extremity ulcerations. These ulcerations are now healed. The ulcerations on both lower extremities are completely healed. Past Medical History Past Medical History: Chronic Problems Noncompliance (Chronic) Leg swelling (Chronic) Edema of both legs (Chronic) Mental deficiency (Chronic) HTN (hypertension) (Chronic) Surgical History: tonsillectomy Allergies/Adverse Reactions: Allergies No Known Allergies Allergy (Verified 06/20/17 13:34) Home Medications: Ambulatory Orders Medication Instructions Recorded Lisinopril [Zestril] 10 mg PO DAILY 12/15/16 - Family History Paternal - - No heart disease. Patient's father is alive, aged 89, and healthy. Maternal Diabetes, - - History of cardiac disease Lives: With Family Smoking Status: Never smoker Tobacco Use: Non-smoker Alcohol: None Drugs: None Review of Systems Constitutional: Denies: Chills, Fever, Weight Change Eyes: Denies: Pain, Vision Change HEENT: Denies: Difficulty Hearing, Difficulty Swallowing, Sinus Congestion Cardiovascular: Denies: Chest Pain, Palpitations Respiratory: Denies: Cough, Shortness of Breath Gastrointestinal: Denies: Diarrhea, Nausea, Vomiting Genitourinary: Denies: Dysuria, Hematuria Endocrine: Denies: Heat/ Cold Intolerance, Polydipsia, Polyuria Hematologic/ Lymphatic: Denies: Easy Bruising, Easy Bleeding - Physical Exam Vital Signs Temp Pulse Resp BP 98.0 F 81 18 160/75 H 08/30/17 14:46 08/30/17 14:46 08/30/17 14:46 08/30/17 14:46 General: Alert, Oriented x3, Cooperative, No apparent distress, Well developed, Well nourished HEENT: PERRLA, EOMI, Normocephalic Oral: Moist Mucosa Neck: No JVD Lungs: Normal air movement Abdomen: Non-Distended Extremities: No clubbing, No cyanosis, No edema, No Calf Tenderness, - - The swelling and edema in the patient's lower extremities appears to be resolved. There is no significant swelling or edema on either side. There are no open wounds or ulcerations on either side. Patient is now completely healed. Skin: No rashes, No breakdown Wound Measurements and Assessment WC - Nurse 1 - General Ulcer Measurement Start: 08/10/17 10:41 Freq: Status: Active Protocol: Activity Type Activity Date Activity User E-Sign Co-Sign Detail Recorded Client Recorded Date Recorded By Document 08/30/17 14:46 [id number] 08/30/17 14:57 Wound Center Nurse 1 [Ulcer Assessment] 5-Left araujo -Combined with other wound No -Current Size (cm) - Length 0.1 -Current Size (cm) - Width 0.1 - Nurse 2 - General Ulcer CM Notes Start: 08/10/17 10:41 Freq: Status: Active Protocol: Activity Type Activity Date Activity User E-Sign Co-Sign Detail Recorded Client Recorded Date Recorded By Document 08/30/17 15:35 [id number] 08/30/17 15:36 Wound Center Nurse 2 [Procedure/Treatment] 5-Left araujo -Time 15:36 -Correct Patient Yes -Correct Side, Site, Position Yes Musculoskeletal: No Muscle Wasting Neurological: Cranial nerves II-XII grossly intact, Neuro grossly intact Psych/Mental Status: Appropriate, - - The patient is communicative, but developmentally disabled. Debridement Note Post-Debridement Measurements/Treatment WC - Nurse 2 - General Ulcer CM Notes Start: 08/10/17 10:41 Freq: Status: Active Protocol: Activity Type Activity Date Activity User E-Sign Co-Sign Detail Recorded Client Recorded Date Recorded By Document 08/10/17 11:43 TYREL [id number] 08/10/17 11:52 TYREL Wound Center Nurse 2 Wound Center Nurse 2 No debridement was completed today Assessment/Plan Active Problems Noncompliance (Chronic) Leg swelling (Chronic) Edema of both legs (Chronic) Mental deficiency (Chronic) Assessment: This is a 57-year-old developmentally/intellectually disabled male who presented with an ulceration on the right lateral calf and 3 ulcerations on the left calf. The ulcerations are now completely healed and epithelialized bilaterally. The swelling and edema is now resolved. There is no evidence of cellulitis or infection. A venous duplex examination and a noninvasive lower extremity arterial study are normal. There is no evidence of superficial venous incompetence or arterial insufficiency. Chronic dependency and patient noncompliance appear to be baker factors in the patient's presenting symptoms. Plan: Patient has done well. He is now completely healed and epithelialized. The swelling and edema has resolved. The patient is to be discharged. He will follow-up henceforth on an as-needed basis. We are to attempt to secure home health for the patient's needs at home. He has been instructed to elevate his lower extremities as much as possible, even during daytime hours. Prescription has been provided for graduated compression stockings of 10-15 mmHg compression. It is unlikely that he would be compliant with a higher degree of compression. A lack of compliance suggests a poor prognostic outcome for the long-term. Activity has been encouraged. Patient has been advised to elevate his lower extremities to heart level as much as possible. He has been advised to refrain from prolonged idle sitting. Despite these recommendations, the patient is poorly compliant, and his cognitive disability appears to be an impediment to his compliance with recommended measures. The patient is to be discharged. The patient is not a smoker. Influenza vaccine was not administered today. The patient stands 5 feet 9 inches tall and weighs 218 pounds. His BMI is 32.2, which places him in the obese class I category. Weight loss has been recommended. Patient has been advised to collaborate with his primary care physician as to weight loss options. 08/30/17 1604 <Electronically signed by Rolando De Leon MD> Date Rolando De Leon MD CC: Signed WOUND CTR HISTORY Observed: 08/23/2017 Status: F Source: [facility] 3:48 PM [facility] REPOSITORY [facility] [address] [place] [address] Wound Ctr History AND Physical 08/23/17 1541 MR#: [id number] Acct: [id number] Name: ALLEY FORTE Rep #: [id number] : 1960 57 From: Rolando De Leon MD PCP: Wilfredo Bowen MD Status: REG RCR Y Location: WC 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 Code(s): L97.219 - Non-pressure chronic ulcer of right calf with unspecified severity (2) Ulcer of left lower leg Status: Chronic Current Visit: Yes Qualifiers: Non-pressure ulcer stage: with fat layer exposed Qualified Code(s): L97.922 - Non-pressure chronic ulcer of unspecified part of left lower leg with fat layer exposed Code(s): L97.929 - Non-pressure chronic ulcer of unspecified part of left lower leg with unspecified severity (3) Mental deficiency Status: Chronic Current Visit: Yes Code(s): F79 - Unspecified intellectual disabilities (4) Left leg cellulitis Status: Acute Current Visit: Yes Code(s): L03.116 - Cellulitis of left lower limb (5) HTN (hypertension) Status: Chronic Current Visit: No Qualifiers: Hypertension type: essential hypertension Code(s): I10 - Essential (primary) hypertension (6) Noncompliance Status: Chronic Current Visit: Yes Code(s): Z91.19 - Patient's noncompliance with other medical treatment and regimen (7) Leg swelling Status: Chronic Current Visit: Yes Code(s): M79.89 - Other specified soft tissue disorders (8) Edema of both legs Status: Chronic Current Visit: Yes Code(s): R60.0 - Localized edema History of Present Illness Date of Service: 08/23/17 Chief Complaint: Large ulceration of the right lateral calf and 3 ulcerations of the left distal lower extremity; bilateral lower extremity swelling and edema; left lower extremity cellulitis History of Wound: This is a developmentally disabled 57-year-old male who presents with ulcerations of both lower extremities. These are relatively recent. The patient is a former patient at the [facility], treated for similar problems in the past. The patient sleeps in a recliner, and spends long hours each day and a sitting position. He has been advised to elevate his lower extremities to heart level, or higher. However, he is noncompliant, and resolutely refuses to do so. He lives with his father, who confirms his son's noncompliance, and indicates his inability to convince his son into applying with recommended measures. Patient has failed to elevate his lower extremities, spends long hours each day in a sitting position, and has not been wearing his compression stockings, as formerly recommended. He presented with bilateral lower extremity swelling and edema, which was worse in the right lower extremity, bilateral lower extremity ulcerations, and cellulitis of the left calf. The patient spends most of his day sitting around, watching TV. The patient is communicative, but is obviously developmentally disabled and with a diminished IQ. The patient has undergone a venous duplex examination which is completely normal. There is no evidence of superficial venous incompetence. The patient's noninvasive lower extremity arterial study is also normal, with triphasic waveforms at ankle level bilaterally, and normal ankle brachial indices bilaterally. We have recently implemented 3M 2 layer compression wraps to each lower extremity, changed twice weekly. Silver gisel has been used topically on the lower extremity ulcerations. Several of these ulcerations are now healed. The ulcerations on the right lower extremity are completely healed, and those in the left lower extremity are nearly healed. Past Medical History Past Medical History: Chronic Problems Ulcer of right calf (Chronic) Noncompliance (Chronic) Leg swelling (Chronic) Edema of both legs (Chronic) Ulcer of left lower leg (Chronic) Mental deficiency (Chronic) HTN (hypertension) (Chronic) Surgical History: tonsillectomy Allergies/Adverse Reactions: Allergies No Known Allergies Allergy (Verified 06/20/17 13:34) Home Medications: Ambulatory Orders Medication Instructions Recorded Lisinopril [Zestril] 10 mg PO DAILY 12/15/16 - Family History Paternal - - No heart disease. Patient's father is alive, aged 89, and healthy. Maternal Diabetes, - - History of cardiac disease Lives: With Family Smoking Status: Never smoker Tobacco Use: Non-smoker Alcohol: None Drugs: None Review of Systems Constitutional: Denies: Chills, Fever, Weight Change Eyes: Denies: Pain, Vision Change HEENT: Denies: Difficulty Hearing, Difficulty Swallowing, Sinus Congestion Cardiovascular: Denies: Chest Pain, Palpitations Respiratory: Denies: Cough, Shortness of Breath Gastrointestinal: Denies: Diarrhea, Nausea, Vomiting Genitourinary: Denies: Dysuria, Hematuria Endocrine: Denies: Heat/ Cold Intolerance, Polydipsia, Polyuria Hematologic/ Lymphatic: Denies: Easy Bruising, Easy Bleeding - Physical Exam Vital Signs Temp Pulse Resp BP 99.1 F 76 18 138/77 H 08/23/17 14:46 08/23/17 14:46 08/23/17 14:46 08/23/17 14:46 General: Alert, Oriented x3, Cooperative, No apparent distress, Well developed, Well nourished HEENT: Atraumatic, PERRLA, EOMI, Normocephalic Oral: Moist Mucosa Neck: No JVD Lungs: Normal air movement Abdomen: Non-Distended Extremities: No clubbing, No cyanosis, No Calf Tenderness, - - No significant swelling or edema in the left lower extremity. Mild right pedal edema is noted. Slight erythema is noted in the left ureter area, though not appearing to be isela cellulitis. There are no open ulcerations in the right lower extremity. The ulcerations in the left lower extremity are essentially healed, but for only a small, superficial ulceration of the left anterior tibial surface. Dimensions are documented elsewhere. Circumference measurements are also documented elsewhere. Wound Measurements and Assessment WC - Nurse 1 - General Ulcer Measurement Start: 08/10/17 10:41 Freq: Status: Active Protocol: Activity Type Activity Date Activity User E-Sign Co-Sign Detail Recorded Client Recorded Date Recorded By Document 08/23/17 14:46 TM [id number] 08/23/17 15:00 Wound Center Nurse 1 [Ulcer Assessment] WC - Nurse 2 - General Ulcer CM Notes Start: 08/10/17 10:41 Freq: Status: Active Protocol: Activity Type Activity Date Activity User E-Sign Co-Sign Detail Recorded Client Recorded Date Recorded By Document 08/23/17 15:17 JS [id number] 08/23/17 15:23 JS Wound Center Nurse 2 Neurological: Cranial nerves II-XII grossly intact, Neuro grossly intact Psych/Mental Status: Normal Affect, - - Patient suffers from cognitive impairment. Debridement Note Post-Debridement Measurements/Treatment WC - Nurse 2 - General Ulcer CM Notes Start: 08/10/17 10:41 Freq: Status: Active Protocol: Activity Type Activity Date Activity User E-Sign Co-Sign Detail Recorded Client Recorded Date Recorded By Wound Center Nurse 2 No debridement was completed today Assessment/Plan Active Problems Ulcer of right calf (Chronic) Noncompliance (Chronic) Leg swelling (Chronic) Edema of both legs (Chronic) Ulcer of left lower leg (Chronic) Mental deficiency (Chronic) Left leg cellulitis (Acute) Assessment: This is a 57-year-old developmentally/intellectually disabled male who presented with an ulceration on the right lateral calf and 3 ulcerations on the left calf. The ulceration on the right lateral calf and on the left medial calf are now completely healed and epithelialized. Patient's ulcerations were initially associated with severe swelling in the lower extremities, particularly on the right. There was also cellulitis involving the left calf. The swelling and edema is now essentially resolved, but for slight right pedal edema. Cellulitic changes in the left lower extremity are also nearly resolved, as the patient was placed on Levaquin 500 mg daily for 10 days recently. The patient has been generally noncompliant with recommended measures in the past, and returned with symptoms similar to those for which he has been previously treated. He had failed to elevate his lower extremities as recommended, sleeping in a recliner and sitting ideally throughout much of each day. He has also failed to wear his graduated compression stockings. As a result of his noncompliance, he presented with the aforementioned symptoms and manifestations. A venous duplex examination and a noninvasive lower extremity arterial study are normal. There is no evidence of superficial venous incompetence or arterial insufficiency. Chronic dependency and patient noncompliance appears to be baker factors in the recurrence of the patient's symptoms. Plan: We are to continue Silver Gisel topically on the small, remaining left lower extremity ulceration. A 3M 2 layer compression wrap will be applied bilaterally. The patient will return twice weekly for a change of his Silver Gisel and compression wraps. We have once again reinforced the importance of leg elevation, though the patient's poor insight and lack of compliance suggest a poor prognostic outcome for the long- term. Activity has been encouraged. Patient has been advised to elevate his lower extremities to heart level as much as possible. He has been advised to refrain from prolonged idle sitting. Despite these recommendations, the patient is poorly compliant, and his cognitive disability appears to be an impediment to his compliance with recommended measures. Patient will return in 1 week. The patient is not a smoker. Influenza vaccine was not administered today. The patient stands 5 feet 9 inches tall and weighs 218 pounds. His BMI is 32.2, which places him in the obese class I category. Weight loss has been recommended. Patient has been advised to collaborate with his primary care physician as to weight loss options. 08/23/17 1548 <Electronically signed by Rolando De Leon MD> Date Rolando De Leon MD CC: Signed WOUND CTR HISTORY Observed: 08/17/2017 Status: F Source: [facility] 11:57 AM [facility] REPOSITORY [facility] [address] [place] [id number] Wound Ctr History AND Physical 08/17/17 1146 MR#: [id number] Acct: [id number] Name: ALLEY FORTE Rep #: [id number] : 1960 57 From: Rolando De Leon MD PCP: Wilfredo Bowen MD Status: REG RCR Y Location: WC 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 Code(s): L97.219 - Non-pressure chronic ulcer of right calf with unspecified severity (2) Ulcer of left lower leg Status: Chronic Current Visit: Yes Qualifiers: Non-pressure ulcer stage: with fat layer exposed Qualified Code(s): L97.922 - Non-pressure chronic ulcer of unspecified part of left lower leg with fat layer exposed Code(s): L97.929 - Non-pressure chronic ulcer of unspecified part of left lower leg with unspecified severity (3) Mental deficiency Status: Chronic Current Visit: Yes Code(s): F79 - Unspecified intellectual disabilities (4) Left leg cellulitis Status: Acute Current Visit: Yes Code(s): L03.116 - Cellulitis of left lower limb (5) HTN (hypertension) Status: Chronic Current Visit: No Qualifiers: Hypertension type: essential hypertension Code(s): I10 - Essential (primary) hypertension (6) Noncompliance Status: Chronic Current Visit: Yes Code(s): Z91.19 - Patient's noncompliance with other medical treatment and regimen (7) Leg swelling Status: Chronic Current Visit: Yes Code(s): M79.89 - Other specified soft tissue disorders (8) Edema of both legs Status: Chronic Current Visit: Yes Code(s): R60.0 - Localized edema History of Present Illness Date of Service: 08/17/17 Chief Complaint: Large ulceration of the right lateral calf and 3 ulcerations of the left distal lower extremity; bilateral lower extremity swelling and edema; left lower extremity cellulitis History of Wound: This is a developmentally disabled 57-year-old male who presents with ulcerations of both lower extremities. These are relatively recent. The patient is a former patient at the [facility], treated for similar problems in the past. The patient sleeps in a recliner, and spends long hours each day and a sitting position. He has been advised to elevate his lower extremities to heart level, or higher. However, he is noncompliant, and resolutely refuses to do so. He lives with his father, who confirms his son's noncompliance, and indicates his inability to convince his son into applying with recommended measures. Patient has failed to elevate his lower extremities, spends long hours each day in a sitting position, and has not been wearing his compression stockings, as formerly recommended. He presented with bilateral lower extremity swelling and edema, which was worse in the right lower extremity, bilateral lower extremity ulcerations, and cellulitis of the left calf. The patient spends most of his day sitting around, watching TV. The patient is communicative, but is obviously developmentally disabled and with a diminished IQ. The patient has undergone a venous duplex examination which is completely normal. There is no evidence of superficial venous incompetence. The patient's noninvasive lower extremity arterial study is also normal, with triphasic waveforms at ankle level bilaterally, and normal ankle brachial indices bilaterally. Since his last visit, we have implemented 3M 2 layer compression wraps to each lower extremity, changed twice weekly. Silver gisel has been used topically on the lower extremity ulcerations. Several of these ulcerations are now healed. Past Medical History Past Medical History: Chronic Problems Ulcer of right calf (Chronic) Noncompliance (Chronic) Leg swelling (Chronic) Edema of both legs (Chronic) Ulcer of left lower leg (Chronic) Mental deficiency (Chronic) HTN (hypertension) (Chronic) Surgical History: tonsillectomy Allergies/Adverse Reactions: Allergies No Known Allergies Allergy (Verified 06/20/17 13:34) Home Medications: Ambulatory Orders Medication Instructions Recorded Lisinopril [Zestril] 10 mg PO DAILY 12/15/16 - Family History Paternal - - No heart disease. Patient's father is alive, aged 89, and healthy. Maternal Diabetes, - - History of cardiac disease Lives: With Family Smoking Status: Never smoker Tobacco Use: Non-smoker Alcohol: None Drugs: None Review of Systems Constitutional: Denies: Chills, Fever, Weight Change Eyes: Denies: Pain, Vision Change HEENT: Denies: Difficulty Hearing, Difficulty Swallowing, Sinus Congestion Cardiovascular: Denies: Chest Pain, Palpitations Respiratory: Denies: Cough, Shortness of Breath Gastrointestinal: Denies: Diarrhea, Nausea, Vomiting Genitourinary: Denies: Dysuria, Hematuria Endocrine: Denies: Heat/ Cold Intolerance, Polydipsia, Polyuria Hematologic/ Lymphatic: Denies: Easy Bruising, Easy Bleeding - Physical Exam Vital Signs Temp Pulse Resp BP 98.6 F 68 16 131/78 H 08/17/17 11:06 08/17/17 11:06 08/17/17 11:06 08/17/17 11:06 General: Alert, Cooperative, No apparent distress, Well developed, Well nourished, - - Patient suffers from cognitive disability HEENT: Atraumatic, PERRLA, EOMI, Normocephalic Oral: Moist Mucosa Neck: No JVD Lungs: Normal air movement Abdomen: Non-Distended Extremities: No clubbing, No cyanosis, No edema, No Calf Tenderness, - - Swelling and edema in the lower extremities appears to be minimal, and well-controlled at this time. The ulceration on the right lateral calf and on the left medial calf are now both completely healed and epithelialized. There remain superficial ulcerations on the left anterior tibial surface and on the left lateral calf. These are very superficial, and dimensions are documented elsewhere. Base of these ulcerations is generally pink and healthy in appearance. Only a small amount of bioburden is noted. Wound Measurements and Assessment WC - Nurse 1 - General Ulcer Measurement Start: 08/10/17 10:41 Freq: Status: Active Protocol: Activity Type Activity Date Activity User E-Sign Co-Sign Detail Recorded Client Recorded Date Recorded By Document 08/17/17 11:06 DV [id number] 08/17/17 11:22 DV Neurological: Cranial nerves II-XII grossly intact, Neuro grossly intact Psych/Mental Status: - - The patient suffers from cognitive disability. He is generally calm and pleasant today. Debridement Note Post-Debridement Measurements/Treatment WC - Nurse 2 - General Ulcer CM Notes Start: 08/10/17 10:41 Freq: Status: Active Protocol: Activity Type Activity Date Activity User E-Sign Co-Sign Detail Recorded Client Recorded Date Recorded By Document 08/10/17 11:43 [id number] 08/10/17 11:52 Wound Center Nurse 2 6-left lateral leg -Time 11:44 -Correct Patient Yes Laterality: Left - Anterior tibial surface and left lateral calf Type of Debridement: Selective debridement Anesthesia Used: 4% Lidocaine Solution Percentage of wound debrided: 100 Instrument Used: 5mm curette Severity: Limited To Skin Breakdown Amount of bleeding with debridement: Mild Bleeding Controlled with: Compression and gauze Patient tolerated procedure well Assessment/Plan Active Problems Ulcer of right calf (Chronic) Noncompliance (Chronic) Leg swelling (Chronic) Edema of both legs (Chronic) Ulcer of left lower leg (Chronic) Mental deficiency (Chronic) Left leg cellulitis (Acute) Assessment: This is a 57-year-old developmentally/intellectually disabled male who presented with an ulceration on the right lateral calf and 3 ulcerations on the left calf. The ulceration on the right lateral calf and on the left medial calf are now completely healed and epithelialized. Patient's ulcerations were initially associated with severe swelling in the lower extremities, particularly on the right. There was also cellulitis involving the left calf. The swelling and edema is now essentially resolved. Cellulitic changes in the left lower extremity are also nearly resolved, as the patient was placed on Levaquin 500 mg daily for 10 days at his last appointment a week ago. The patient has been generally noncompliant with recommended measures in the past, and returned with symptoms similar to those for which he has been previously treated. He had failed to elevate his lower extremities as recommended, sleeping in a recliner and sitting ideally throughout much of each day. He has also failed to wear his graduated compression stockings. As a result of his noncompliance, he presented with the aforementioned symptoms and manifestations. A venous duplex examination and a noninvasive lower extremity arterial study are normal. There is no evidence of superficial venous incompetence or arterial insufficiency. Chronic dependency and patient noncompliance appears to be baekr factors in the recurrence of the patient's symptoms. Plan: A culture has been obtained of the ulceration on the left anterior tibial surface. Results were positive for staph aureus, sensitive to the Levaquin, which the patient was placed on last week. We are to continue Silver Igsel topically on each of the lower extremity ulcerations. A 3M 2 layer compression wrap will be applied bilaterally. The patient will return twice weekly for a change of his Silver Gisel and compression wraps. We have once again reinforced the importance of leg elevation, though the patient's poor insight and lack of compliance suggest a poor prognostic outcome for the long- term. Activity has been encouraged. Patient has been advised to elevate his lower extremities to heart level as much as possible. He has been advised to refrain from prolonged idle sitting. Despite these recommendations, the patient is poorly compliant, and his mental disability appears to be an impediment to his compliance with recommended measures. Patient will return in 1 week. The patient is not a smoker. Influenza vaccine was not administered today. The patient stands 5 feet 9 inches tall and weighs 218 pounds. His BMI is 32.2, which places him in the obese class I category. Weight loss has been recommended. Patient has been advised to collaborate with his primary care physician as to weight loss options. 08/17/17 1157 <Electronically signed by Rolando De Leon MD> Date Rolando De Leon MD CC: Signed WOUND CTR HISTORY Observed: 08/10/2017 Status: F Source: [place] [facility] 12:05 PM [facility] REPOSITORY [facility] [address] [place] [address] Wound Ctr History AND Physical 08/10/17 1141 MR#: [id number] Acct: [id number] Name: ALLEY FORTE Rep #: [id number] : 1960 57 From: Rolando De Leon MD PCP: Wilfredo Bowen MD Status: REG RCR Y Location: WC 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 Code(s): L97.219 - Non-pressure chronic ulcer of right calf with unspecified severity (2) Ulcer of left lower leg Status: Chronic Current Visit: Yes Qualifiers: Non-pressure ulcer stage: with fat layer exposed Qualified Code(s): L97.922 - Non-pressure chronic ulcer of unspecified part of left lower leg with fat layer exposed Code(s): L97.929 - Non-pressure chronic ulcer of unspecified part of left lower leg with unspecified severity (3) Mental deficiency Status: Chronic Current Visit: Yes Code(s): F79 - Unspecified intellectual disabilities (4) Left leg cellulitis Status: Acute Current Visit: Yes Code(s): L03.116 - Cellulitis of left lower limb (5) HTN (hypertension) Status: Chronic Current Visit: No Qualifiers: Hypertension type: essential hypertension Code(s): I10 - Essential (primary) hypertension (6) Noncompliance Status: Chronic Current Visit: Yes Code(s): Z91.19 - Patient's noncompliance with other medical treatment and regimen (7) Leg swelling Status: Chronic Current Visit: Yes Code(s): M79.89 - Other specified soft tissue disorders (8) Edema of both legs Status: Chronic Current Visit: Yes Code(s): R60.0 - Localized edema History of Present Illness Date of Service: 08/10/17 Chief Complaint: Large ulceration of the right lateral calf and 3 ulcerations of the left distal lower extremity; bilateral lower extremity swelling and edema; left lower extremity cellulitis History of Wound: This is a developmentally disabled 57-year-old male who presents with ulcerations of both lower extremities. These are relatively recent. The patient is a former patient at the [facility], treated for similar problems in the past. The patient sleeps in a recliner, and spends long hours each day and a sitting position. He has been advised to elevate his lower extremities to heart level, or higher. However, he is noncompliant, and resolutely refuses to do so. He lives with his father, who confirms his son's noncompliance, and indicates his inability to convince his son into applying with recommended measures. Patient has failed to elevate his lower extremities, spends long hours each day and a sitting position, and is not wearing his compression stockings, as formerly recommended. He presents now with bilateral lower extremity swelling and edema, which is worse in the right lower extremity, bilateral lower extremity ulcerations, and cellulitis of the left calf. The patient spends most of his day sitting around, watching TV. The patient is communicative, but is obviously developmentally disabled and with a diminished IQ. The patient has undergone a venous duplex examination which is completely normal. There is no evidence of superficial venous incompetence. The patient's noninvasive lower extremity arterial study is also normal, with triphasic waveforms at ankle level bilaterally, and normal ankle brachial indices bilaterally. Past Medical History Past Medical History: Chronic Problems Ulcer of right calf (Chronic) Noncompliance (Chronic) Leg swelling (Chronic) Edema of both legs (Chronic) Ulcer of left lower leg (Chronic) Mental deficiency (Chronic) HTN (hypertension) (Chronic) Surgical History: tonsillectomy Allergies/Adverse Reactions: Allergies No Known Allergies Allergy (Verified 06/20/17 13:34) Home Medications: Ambulatory Orders Medication Instructions Recorded Lisinopril [Zestril] 10 mg PO DAILY 12/15/16 - Family History Paternal - - No heart disease. Patient's father is alive, aged 89, and healthy. Maternal Diabetes, - - History of cardiac disease Lives: With Family Smoking Status: Never smoker Tobacco Use: Non-smoker Alcohol: None Drugs: None Review of Systems Constitutional: Reports: - - Patient suffers from mental deficiency. Denies: Chills, Fever, Weight Change Eyes: Denies: Pain, Vision Change HEENT: Denies: Difficulty Hearing, Difficulty Swallowing, Sinus Congestion Cardiovascular: Denies: Chest Pain, Palpitations Respiratory: Denies: Cough, Shortness of Breath Gastrointestinal: Denies: Diarrhea, Nausea, Vomiting Genitourinary: Denies: Dysuria, Hematuria Endocrine: Denies: Heat/ Cold Intolerance, Polydipsia, Polyuria Hematologic/ Lymphatic: Denies: Easy Bruising, Easy Bleeding - Physical Exam Vital Signs Temp Pulse Resp BP 98.7 F 88 18 138/70 H 08/10/17 10:41 08/10/17 10:41 08/10/17 10:41 08/10/17 10:41 General: Alert, Cooperative, No apparent distress, Well developed, Well nourished, - - Suffers from mental deficiency HEENT: Atraumatic, PERRLA, EOMI, Normocephalic Oral: Moist Mucosa Neck: No JVD, Negative Carotid Bruits, No Nodes, No Nuchal Rigidity, Trachea Midline Lungs: Clear to auscultation, Normal air movement, No rhonchi, No wheeze, No rales Cardiovascular: Regular Rhythm, Normal S1, Normal S2, No murmurs Abdomen: Soft, Non Tender, Non-Distended Extremities: No clubbing, No cyanosis, No Calf Tenderness, - - An ulceration is noted on the right lateral calf. 3 ulcerations are noted on the left calf. Dimensions are documented elsewhere. Bilateral lower extremity swelling and edema is noted, which is worse in the right lower extremity. Cellulitis is noted of the left calf. Wound Measurements and Assessment WC - Nurse 1 - General Ulcer Measurement Start: 08/10/17 10:41 Freq: Status: Active Protocol: Activity Type Activity Date Activity User E-Sign Co-Sign Detail Recorded Client Recorded Date Recorded By Document 08/10/17 10:41 JOANN [id number] 08/10/17 11:01 JOANN Wound Center Nurse 1 [Ulcer Assessment] 6-left lateral leg -Combined with other wound No -Current Size (cm) - Length 1.6 Musculoskeletal: No Muscle Wasting Neurological: Cranial nerves II-XII grossly intact, Neuro grossly intact Psych/Mental Status: Agitated, - - Patient suffers from mental deficiency and is somewhat agitated Debridement Note Laterality: Right - Lateral calf Type of Debridement: Excisional debridement Anesthesia Used: 4% Lidocaine Solution Depth: in the subcutaneous layer Percentage of wound debrided: 100 Instrument Used: 5mm curette Severity: Fat Layer Exposed Amount of bleeding with debridement: Mild Bleeding Controlled with: Compression and gauze Patient tolerated procedure well - Additional Wound Laterality: Left - Medial calf Type of Debridement: Excisional debridement Anesthesia Used: 4% Lidocaine Solution Depth: Down to and including healthy tissue, in the subcutaneous layer Percentage of wound debrided: 100 Instrument Used: 5mm curette Severity: Fat Layer Exposed Amount of bleeding with debridement: Mild Bleeding Controlled with: Compression and gauze Patient tolerated procedure: Patient tolerated procedure well - Additional Wound Laterality: Left - Lateral calf Type of Debridement: Excisional debridement Anesthesia Used: 4% Lidocaine Solution Depth: Down to and including healthy tissue, in the subcutaneous layer Percentage of wound debrided: 100 Instrument Used: 5mm curette Severity: Fat Layer Exposed Amount of bleeding with debridement: Mild Bleeding Controlled with: Compression and gauze Patient tolerated procedure: Patient tolerated procedure well - Additional Wound Laterality: Left - Anterior calf Type of Debridement: Excisional debridement Anesthesia Used: 4% Lidocaine Solution Depth: Down to and including healthy tissue, in the subcutaneous layer Percentage of wound debrided: 100 Instrument Used: 5mm curette Severity: Fat Layer Exposed Amount of bleeding with debridement: Mild Bleeding Controlled with: Compression and gauze Patient tolerated procedure: Patient tolerated procedure well Assessment/Plan Active Problems Ulcer of right calf (Chronic) Noncompliance (Chronic) Leg swelling (Chronic) Edema of both legs (Chronic) Ulcer of left lower leg (Chronic) Mental deficiency (Chronic) Left leg cellulitis (Acute) Assessment: This is a 57-year-old developmentally/intellectually disabled male who presents with an ulceration on the right lateral calf and 3 ulcerations on the left calf. This is associated with severe swelling in the lower extremities, particularly on the right. There is also cellulitis involving the left calf. The patient has been noncompliant with recommended measures, and returns with symptoms similar to those before which he has been previously treated. He has failed to elevate his lower extremities as recommended, sleeping in a recliner and sitting ideally throughout much of each day. He has also failed to wear his graduated compression stockings. As a result of his noncompliance, he now presents with the aforementioned symptoms and manifestations. A venous duplex examination and a noninvasive lower extremity arterial study are normal. There is no evidence of superficial venous incompetence or arterial insufficiency. Chronic dependency and patient noncompliance appears to be baker factors in the recurrence of the patient's symptoms. Plan: A culture has been obtained of the ulceration on the left anterior tibial surface. Results will be awaited. Interim, the patient is to be treated empirically with Levaquin 500 mg p.o. daily, for 10 days. We are to use Silver Gisel topically on each of the lower extremity ulcerations. A 3M 2 layer compression wrap will be applied bilaterally. The patient will return twice weekly for a change of his Silver Gisel compression wraps. We have once again reinforced the importance of leg elevation, though the patient's poor insight and lack of compliance just a poor prognostic outcome for the long-term. Activity has been encouraged. Patient has been advised to elevate his lower extremities to heart level as much as possible. He has been advised to refrain from prolonged idle sitting. Despite these recommendations, the patient is poorly compliant, and his mental disability appears to be an impediment to his compliance with recommended measures. Patient will return in 1 week. The patient is not a smoker. Influenza vaccine was not administered today. The patient stands 5 feet 9 inches tall and weighs 218 pounds. His BMI is 32.2, which places him in the obese class I category. Weight loss has been recommended. Patient has been advised to collaborate with his primary care physician as to weight loss options. 08/10/17 1205 <Electronically signed by Rolando De Leon MD> Date Rolando De Leon MD CC: Signed Observed: 08/10/2017 Status: F Source: [place] CULTURE, DEEP WOUND 11:30 AM [facility] REPOSITORY Gram Stain Gram Stain 2+ Red Blood Cells Rare White Blood Cells 1+ Gram positive cocci in clusters Wound Culture ORGANISM 1: Staphylococcus aureus Amount Growth 2+ Staphylococcus aureus: REACTION Benzylpenicillin NF >=0.5 R Cefoxitin *NF - Clindamycin $$ <=0.25 R Inducable Clindamycin Res[place] + Erythromycin $ 1 R Gentamicin $ <=0.5 S Levofloxacin $ <=0.12 S Linezolid $$$$ 2 S Moxifloxicin *NF <=0.25 S Oxacillin NF <=0.25 S Tigecycline $$$$ <=0.12 S Rifampin $$ <=0.5 S Tetracycline NF <=1 S Trimethoprim/Sulfametho $ <=10 S Vancomycin $ <=0.5 S (NF) indicates non-formulary drug at [facility]. Approval by Infectious Disease Specialist required before non-formulary drugs may be ordered and/or dispensed. * CLSI guidelines does not recommend testing of cephalosporins. This interpretation is deduced from Beta-lactam/penicillin results. Cult, Anaerobic No anaerobic bacteria isolated. Performed By: #### M100.1500 #### [facility] [address] [place], [address] [facility] Observed: 06/23/2017 Status: COMPLETED Source: [place] 12:00 AM [facility] REPOSITORY Telephone ([employer]) ALLEY FORTE ([id number]) 1960 M Date Time Provider Department 06/23/17 [facility] During your visit today, we recorded the following information about you: Justino Dunn 06/23/2017 12:36 PM Signed Received reports from [facility]. Placed in pcps inbox for review. 06/20/17 ER Summary for SOB, Chest XR Route to ME for scanning. Justino Dunn 06/29/2017 10:37 AM Signed Sent to scanning. Allergies As of Date: 06/23/2017 (No Known Allergies) Date Reviewed: 09/10/2016 Reviewed by: Claire Westfall LPN - Fully Assessed Reason for Visit: ER and Radiology Report [Other] Cmt: [facility] 06/20/17 Prescriptions as of 06/23/2017 Sig: MUPIROCIN 2 % TOPICAL OINTMENT Apply 1 application to affect* LISINOPRIL 10 MG TABLET Take 1 tablet by mouth once d* POTASSIUM CHLORIDE ER 20 MEQ * Take 1 tablet by mouth twice * AMMONIUM LACTATE 12 % LOTION Apply 1 application to affect* PANTOPRAZOLE 20 MG TABLET,DEL* Take 20 mg by mouth once hans* COMPOUNDED PRESCRIPTION 4x4 gauze, 4 inch roll gauze,* DICLOFENAC 1 % TOPICAL GEL Apply 2 g to affected area fo* SILVER SULFADIAZINE 1 % TOPIC* Apply 1 application to affect* NON-ADHERENT BANDAGE 2 X 3 Apply over the silvadine crea* Problem List As Of Date 06/23/2017 Noted Resolved Developmental delay, mild [R62.50] INVALID FOR* Essential hypertension [I10] INVALID FOR* Encounter Status:Closed by JUSTINO DUNN on 06/25/17 12 LEAD ELECTROCARDIOGRAM Observed: 06/21/2017 Status: F Source: [place] 1:07 PM [facility] REPOSITORY [facility] Cardiovascular Services [address] [place] [id number] Lead EKG 06/20/17 1440 MR#: [id number] Acct: [id number] Name: ALLEY FORTE Rep #: [id number] : 1960 57 From: Mayank To MD Attending Dr: Status: DEP ER Ordering Dr: Mario Thomas MD Date: 06/20/17 Location: ED Sex: M C Admitted: Test Reason : SOB Blood Pressure : / mmHG Vent. Rate : 071 BPM Atrial Rate : 071 BPM P-R Int : 182 ms QRS Dur : 100 ms QT Int : 396 ms P-R-T Axes : 034 003 030 degrees QTc Int : 430 ms Normal sinus rhythm Normal ECG Confirmed by MAYANK TO MD ([id number]), editor map MAGNO SCHROEDER ([id number]) on 06/21/2017 1:07:06 PM Referred By: ELISABETH/SILVER Confirmed By:MAYANK TO MD 06/21/17 1307 Date Mayank To MD CC: Wilfredo Bowen MD Signed EMERGENCY DEPARTMENT Observed: 06/20/2017 Status: F Source: [place] SUMMARY 5:08 PM [facility] REPOSITORY [facility] Medical Records Department [address] [place] [address] Emergency Department Summary 06/20/17 1409 MR#: [id number] Acct: [id number] Name: ALLEY FORTE Rep #: [id number] : 1960 57 From: Mario Thomas MD PCP: Wilfredo Bowen MD Status: DEP ER - ER Visit Summary Date of Service: 06/20/17 Chief Complaint: [] Shortness of breath for weeks History of Present Illness: The patient is a 57 M [] patient reports hypertension chronic leg edema mild mental health issues, brought in by father he reports the patient's been complaining of shortness of breath for 2 weeks or more he was seen just after [place] treated with Zofran and Levaquin for the shortness of breath he seemed to improve the father states at home the patient's been acting normally no obvious shortness of breath or signs of illness but today he indicated he wanted to be brought to the hospital because he was still short of breath. The patient points to his nose which is congested he has 2+ edema to his lower legs that that report is not new or different. He has no history of CT PE DVT per the patient the father he has been going about his normal daily activities without difficulty there may be some orthopnea Physical Examination: [] On exam he has rhinorrhea his throat is clear his neck is supple his lungs are diminished heart tones are distant abdomen is obese but soft nontender he has 2-3+ edema in his lower extremities that is not new has some slight redness to the araujo that is not new neurologically he is awake alert has normal but he seems to chronically have slow mental processing and the father reports that his not different or new Test Results: [] Emergency Department Course and Treatment: [] Given his complaints comprehensive evaluations pursued His lab studies EKG generally negative the x-ray shows mild pulmonary prominence no CHF. I discussed all of this the patient his father his chief complaint physical finding here is the rhinorrhea, I explained is no signs of pneumonia or overt CHF, he will be started on Flonase Proventil inhaler to follow-up with his doctors tomorrow for further management return for change in symptoms Treatment Plan: [] Disposition: [] Home stable Impression: [] URI, rhinorrhea This note was generated with [employer] dictation software. It may contain incorrect words, spelling, and punctuation that were not noted in review of the chart prior to signing ED Disposition - Plan for ED Patient: Chief Complaint: Shortness of Breath Referrals: Wilfredo Bowen MD [Primary Care Provider] - What to do if you have Problems For any increased pain, shortness of breath, bleeding, nausea or vomiting, chest pain, or any unexpected problems, contact your Primary Care Provider. Call [facility] ([phone]) or report to the closest Emergency Room. Call 911 if necessary. 06/20/17 1708 <Electronically signed by Mario Thomas MD> Date Mario Thomas MD Cosigner Signature (If Indicated): Date CC: Wilfredo Bowen MD DISCHARGE INSTRUCTION Observed: 06/20/2017 Status: F Source: [place] 4:02 PM [facility] REPOSITORY [facility] Medical Records Department [address] [place] [address] Discharge Instruction 06/20/17 1601 MR#: [id number] Acct: [id number] Name: ALLEY FORTE Rep #: [id number] : 1960 57 From: Mario Thomas MD PCP: Wilfredo Bowen MD Status: REG ER ED Disposition - Plan for ED Patient: Chief Complaint: Shortness of Breath Instructions: ED Upper Resp Infec No Abx Tx Prescriptions: Albuterol Inhaler [Ventolin Hfa] 1 - 2 puff INHALATION Q4H PRN PRN #1 inhaler PRN Reason: Wheezing Fluticasone Propionate [Flonase Allergy Relief] 9.9 ml NS BID #1 spray.susp Referrals: Wilfredo Bowen MD [Primary Care Provider] - What to do if you have Problems For any increased pain, shortness of breath, bleeding, nausea or vomiting, chest pain, or any unexpected problems, contact your Primary Care Provider. Call [facility] ([phone]) or report to the closest Emergency Room. Call 911 if necessary. 06/20/17 1602 <Electronically signed by Mario Thomas MD> Date Mario Thomas MD Cosigner Signature (If Indicated): Date CC: Wilfredo Bowen MD CBC W/DIFF, AUTOMATED Collected: 06/20/2017 Status: F Source: [place] 2:10 PM [facility] REPOSITORY TYPE CODE TESTS RESULT OUT OF RANGE REFERENCE UNITS LAB L100.1000 4.4-11.0 K/mm3 High WBC 13.0 LAB L100.1200 4.6-6.2 M/mm3 Low RBC 4.49 LAB L100.1300 13.0-16.5 g/dl Normal HGB 14.3 LAB L100.1400 40-54 % Normal HCT 41.5 LAB L100.1500 80-94 fL Normal MCV 92.4 LAB L100.1600 27.0-32.0 pg Normal MCH 31.8 LAB L100.1700 32-36 g/gl Normal MCHC 34.5 LAB L100.1810 11.6-14.6 % Normal RDW CV 13.3 LAB L100.1820 35.1-43.9 fl High RDW SD 44.1 LAB L100.1900 150-450 K/mm3 Normal PLT 222 LAB L100.2000 6.2-12.0 fl Normal MPV 11.8 LAB L100.2100 47-70 % Normal NEUT% 54.2 LAB L100.2200 19-41 % Normal LY% 39.1 LAB L100.2300 0-10 % Normal MONO% 6.1 LAB L100.2400 0-5 % Normal EO% 0.2 LAB L100.2500 0-1 % Normal BASO% 0.2 LAB L100.2550 0.0-0.9 % Normal IM GRAN % 0.200 Result Comment: IG% - Immature Granulocytes (promyelocytes, myelocytes and metamyelocytes) > 1% indicates that a LEFT SHIFT is Present. LAB L100.2620 2.0-7.7 X10 3/uL Normal Absolute Neut 7.1 LAB L100.2720 0.83-4.51 X10 3/ul High Absolute Lymph 5.10 Performed By: #### L100.0100 #### [facility] [address] [place], [address] BASIC METABOLIC Collected: 06/20/2017 Status: F Source: DELRAY PROFILE (BMP) 2:10 PM [facility] REPOSITORY Order Comment: 'TROP' Serial specimen #1, #2, #3, or #4: 1 TYPE CODE TESTS RESULT OUT OF RANGE REFERENCE UNITS LAB L501.0100 70-110 mg/dL Normal GLU 94 LAB L501.1000 7-18 mg/dL Normal BUN 14 LAB L501.1100 0.70-1.30 mg/dL Normal 0.87 CREAT,SERUM Result Comment: The validity of the calculated GFR AND GFRAA in patients over 70 years has not been determined. Clinical correlation is essential. LAB L501.1110 >60 mL/min Normal EST GFR 95 Result Comment: Non- GFR Calc LAB L501.1115 >60 mL/min Normal EST GFR - AA 115 Result Comment: GFR Calc LAB L501.1255 ml/min Normal Estimated CRCL 92.55 LAB L501.1300 10-20 RATIO Normal BUN/CRE 16.0 LAB L501.2200 8.5-10 mg/dL Normal .1 CA 9.0 LAB L501.5300 136-14 mmol/L Normal 5 NA 138 LAB L501.5600 3.5-5. mmol/L Normal 1 K 4.6 LAB L501.5900 98-107 mmol/L Normal CL 104 LAB L501.6100 21.0-3 mmol/L Normal 2.0 CO2 27.0 LAB L501.6200 5-15 Normal GAP 7 Performed By: #### L500.2500, L501.4010 #### [facility] [address] [place], [address] TROPONIN-I Collected: 06/20/2017 Status: F Source: HAO 2:10 PM [facility] REPOSITORY Order Comment: 'TROP' Serial specimen #1, #2, #3, or #4: 1 TYPE CODE TESTS RESULT OUT OF RANGE REFERENCE UNITS LAB L501.4010 <0.06 ng/mL Normal < 0.02 TROPONIN-I Result Comment: TROPONIN-I EXPECTED VALUES <0.05 NEGATIVE 0.06 - 0.[address] > OR = 0.[address] Performed By: #### L500.2500, L501.4010 #### [facility] [address] [place], [address] BNP,B-TYPE NATRIURETIC Collected: 06/20/2017 Status: F Source: DELRAY PEPTIDE 2:10 PM [facility] REPOSITORY TYPE CODE TESTS RESULT OUT OF RANGE REFERENCE UNITS LAB L503.6620 0-100 pg/mL Normal B-TYPE 35.8 STEVE PEP Performed By: #### L503.6620 #### [facility] [address] [place], [address] CHEST 1 VIEW Observed: 06/20/2017 Status: F Source: HAO (PORTABLE) 2:02 PM [facility] REPOSITORY [facility] Imaging Services [address] [place] [address] Chest 1 View (Portable) MR#: [id number] Acct: [id number] Name: ALLEY FORTE Rep #: [id number] : 1960 M 57 From: Joshua Oconnor MD PCP: Wilfredo Bowen MD Status: REG ER Study: Chest 1 View (Portable) Date of Exam: 06/20/17 Exam# [id number] Ordering Dr: Mario Thomas MD STUDY: X-RAY CHEST REASON FOR EXAM: Male, 57 years old. Shortness of breath TECHNIQUE: Single AP portable view of the chest. COMPARISON: Chest x-ray on June 02, 2017 FINDINGS: The lungs are clear and expanded. There is no demonstrated pleural abnormality. There is mild cardiac enlargement. Normal mediastinum and shellie. Normal visualized pulmonary arteries. Normal visualized aortic arch and descending thoracic aorta. Normal visualized thoracic spine. Normal visualized ribs, clavicles, and shoulders. There is no demonstrated abnormality of the visualized soft tissue structures of the upper abdomen. RAD/Chest 1 View (Portable) IMPRESSION: Mild cardiomegaly. No signs of acute disease Electronically Signed: Joshua Oconnor MD, FACR at 14:30 EST , Service support , CC: MD Solange Thomas; Wilfredo Bowen MD Pulley Mortiser Operator: Signed EMERGENCY DEPARTMENT Observed: 06/03/2017 Status: F Source: DELRAY SUMMARY 1:27 AM [facility] Medical Records Department [address] [place] [address] Emergency Department Summary 06/02/17 2212 MR#: [id number] Acct: [id number] Name: ALLEY FORTE Rep #: [id number] : 1960 57 From: Denzel Espinosa MD PCP: Wilfredo Bowen MD Status: DEP ER - ER Visit Summary Date of Service: 06/02/17 Chief Complaint: Fever History of Present Illness: The patient is a [address] Bowen. He is a poor informant. He reports that he has a fever that began today. He also complains of left-sided abdominal pain. He describes as a cramping, sharp pain is 8 out of 10 at worst and 410 currently. Is worsened by nothing and relieved by water. She has been nauseated and vomited twice. No blood in his emesis. No diarrhea. His last bowel was today. Said no melena hematochezia. No dysuria or frequency. Physical Examination: Vitals: 101.2, 123/86, 100, 22, 96% room air which is not hypoxic.. General: Well-nourished and well-developed. Head: Normocephalic atraumatic. Neck: Supple, no lymphadenopathy. No JVD. Nontender. Cardiovascular: Regular rate and rhythm. No murmurs. Respiratory: No respiratory distress. Clear to auscultation bilaterally. Abdominal: Soft, mild tenderness palpation left upper quadrant, nondistended, normal bowel sounds. No guarding, rebound, or peritoneal signs. Back: Nontender. Extremities: Nontender, no edema. Skin: Normal color, no rash. Neurologic: Alert and oriented 3. Cranial nerves II through XII are intact. Normal strength and sensation. Psych: Normal affect. Test Results: Influenza was negative. Chest x-ray was read by radiologist as negative. In my opinion there is a right lower lobe infiltrate. CBC is marked for white count of 17.8. Chem-7 is marked for glucose 117 and calcium of 8.2. LFTs marked for an albumin 3.2. UA was negative. Emergency Department Course and Treatment: Patient refused an IV. We were unable to get a lactic acid only able to get one blood culture. He was treated with Tylenol and Zofran p.o. He has had no vomiting while here. I gave him a dose of Levaquin p.o. as well. Treatment Plan: At this time patient does not meet admission criteria. He will be discharged on Levaquin and instructed to follow-up with Dr. Bowen in 3-5 days if not improving. Return to the emergency department for any worsening symptoms. Disposition: To home in improved and stable condition. Impression: 1. Pneumonia, community-acquired. This note was generated with Meographation software. It may contain incorrect words, spelling, and punctuation that were not noted in review of the chart prior to signing ED Disposition - Plan for ED Patient: Disposition: Home or Assisted Living Chief Complaint: Nausea/Vomiting Instructions: ED Pneumonia Adult Prescriptions: Ondansetron [Zofran Odt] 4 mg PO Q8H PRN PRN #10 tablet PRN Reason: Nausea Levofloxacin [Levaquin] 750 mg PO DAILY #7 tablet Referrals: Wilfredo Bowen MD [Primary Care Provider] - 3-5 Days What to do if you have Problems For any increased pain, shortness of breath, bleeding, nausea or vomiting, chest pain, or any unexpected problems, contact your Primary Care Provider. Call [facility] ([phone]) or report to the closest Emergency Room. Call 911 if necessary. 06/03/17 0127 <Electronically signed by Denzel Espinosa MD> Date Denzel Espinosa MD Cosigner Signature (If Indicated): Date CC: Wilfredo Bowen MD URINALYSIS, COMPLETE Collected: 06/02/2017 Status: F Source: HAO 9:00 PM [facility] REPOSITORY Order Comment: Order Date: 06/02/17 Has pt arrived? Y How was Urine Obtained? CLEAN CATCH TYPE CODE TESTS RESULT OUT OF RANGE REFERENCE UNITS LAB L400.3000 Yellow COLOR Normal Yellow LAB L400.3050 Clear Normal CLARITY Clear LAB L400.3200 Normal mg/dl Normal GLUCOSE, UR Normal LAB L400.3300 Negative mg/dL Normal BILIRUBIN URINE Negative LAB L400.3400 Negative mg/dl Normal KETONE UR Negative LAB L400.3465 1.002-1.030 Normal SP.GR. DIPSTX 1.025 LAB L400.3550 5.0 - 8.0 pH UR Normal 6.0 LAB L400.3600 Negative mg/dl High PROT 30 DIPSTX LAB L400.3700 Normal mg/dl Normal UROBILI Normal LAB L400.3750 Negative Normal NITRITE UR Negative LAB L400.3780 Negative /ul High 10 OCCULT BLOOD-UR LAB L400.3800 Negative /ul LEUK Normal ESTERASE Negative LAB L400.4050 0-5 /hpf WBC Normal 0-5 SEEN LAB L400.4100 0-5 /hpf 0 Normal RBC-UA SEEN LAB L400.4150 0-5 /hpf SQUAM 0 Normal EPI SEEN LAB L400.4300 None Seen /hpf 0 Normal BACTERIA SEEN LAB L400.4350 <or=2+ /hpf 1+ Normal MUCUS, URINE Performed By: #### L400.0001 #### [facility] [address] [place], [address] Observed: 06/02/2017 Status: F Source: DELRAY INFLUENZA A+B (RAPID 9:00 PM [facility]OS) REPOSITORY FLU A/B Rapid Negative test results should be confirmed by culture. Order Rapid Viral Culture for Influenzae A+B ([id number]) if clinically indicated. Influenza Ag, Direct Presumptive NEGATIVE for Influenza A/B Antigen (See Note) Performed By: #### M101.0101 #### [facility] [address] [place] [address]. [place], [address] Observed: 06/02/2017 Status: F Source: DELRAY CULTURE, URINE 9:00 PM [facility] REPOSITORY Order Date: 06/02/17 Has pt arrived? Y Urine Culture ORGANISM 1: Mixed Gram Positive Organisms [place] Count 1000-10,000 MIX CULTURE Mixed contaminants. Submit a new specimen if indicated. Performed By: #### M100.0650 #### [facility] [address] [place] [address]. [place], [place], [address] CBC W/DIFF, AUTOMATED Collected: 06/02/2017 Status: F Source: DELRAY 8:30 PM [facility] REPOSITORY TYPE CODE TESTS RESULT OUT OF RANGE REFERENCE UNITS LAB L100.1000 4.4-11.0 K/mm3 High WBC 17.8 LAB L100.1200 4.6-6.2 M/mm3 Low RBC 4.32 LAB L100.1300 13.0-16.5 g/dl Normal HGB 13.5 LAB L100.1400 40-54 % Normal HCT 40.4 LAB L100.1500 80-94 fL Normal MCV 93.5 LAB L100.1600 27.0-32.0 pg Normal MCH 31.3 LAB L100.1700 32-36 g/gl Normal MCHC 33.4 LAB L100.1810 11.6-14.6 % Normal RDW CV 13.8 LAB L100.1820 35.1-43.9 fl High RDW SD 47.3 LAB L100.1900 150-450 K/mm3 Normal PLT 225 LAB L100.2000 6.2-12.0 fl Normal MPV 11.8 LAB L100.2100 47-70 % Normal NEUT% 70.0 LAB L100.2200 19-41 % Normal LY% 27.1 LAB L100.2300 0-10 % Normal MONO% 2.5 LAB L100.2400 0-5 % Normal EO% 0.1 LAB L100.2500 0-1 % Normal BASO% 0.1 LAB L100.2550 0.0-0.9 % Normal IM GRAN % 0.200 Result Comment: IG% - Immature Granulocytes (promyelocytes, myelocytes and metamyelocytes) > 1% indicates that a LEFT SHIFT is Present. LAB L100.2620 2.0-7.7 X10 3/uL High Absolute Neut 12.5 LAB L100.2720 0.83-4.51 X10 3/ul High Absolute Lymph 4.82 Performed By: #### L100.0100 #### [facility] [address] [place], [place], [address] COMPREHENSIVE METABOLIC Collected: 06/02/2017 Status: F Source: [facility] 8:30 PM [facility] REPOSITORY TYPE CODE TESTS RESULT OUT OF RANGE REFERENCE UNITS LAB L501.0100 70-110 mg/dL High GLU 117 Result Comment: Fasting Glucose result from 110 to <126 mg/dL suggests IMPAIRED HOMEOSTASIS per A.D.A. criteria. LAB L501.1000 7-18 mg/dL Normal BUN 15 LAB L501.1100 0.70-1.30 mg/dL Normal CREAT,SERUM 0.98 Result Comment: The validity of the calculated GFR AND GFRAA in patients over 70 years has not been determined. Clinical correlation is essential. LAB L501.1110 >60 mL/min Normal EST GFR 84 Result Comment: Non- GFR Calc LAB L501.1115 >60 mL/min Normal EST GFR - AA 101 Result Comment: GFR Calc LAB L501.1255 ml/min Normal Estimated CRCL 82.16 LAB L501.1300 10-20 RATIO Normal BUN/CRE 15.3 LAB L501.1500 6.4-8. g/dL Normal 2 T PROT 6.7 LAB L501.1800 3.4-5. g/dL Low 0 ALB 3.2 Result Comment: Please note revised Albumin AND Globulin reference range effective 2017. LAB L501.1950 2.2-4.2 g/dL Normal GLOB 3.5 LAB L501.2000 0.9-2.4 RATIO Normal A/G 0.9 LAB L501.2200 8.5-10.1 mg/dL Low CA 8.2 LAB L501.4100 15-37 U/L Normal AST 33 LAB L501.4305 45-117 U/L Normal ALK P 76 LAB L501.4405 12-78 U/L Normal ALT 31 LAB L501.4600 0.20-1.00 mg/dL Normal T BILI 0.50 LAB L501.5300 136-145 mmol/L Normal NA 137 LAB L501.5600 3.5-5.1 mmol/L Normal K 4.2 LAB L501.5900 98-107 mmol/L Normal CL 102 LAB L501.6100 21.0-32.0 mmol/L Normal CO2 29.0 LAB L501.6200 5-15 Normal GAP 6 Performed By: #### L500.4050 #### [facility] [address] [place], [address] Observed: 06/02/2017 Status: F Source: HAO CULTURE, BLOOD (WB) 8:30 PM [facility] REPOSITORY BC No growth in 5 days. Performed By: #### M200.1000 #### [facility] [address] [place], [place], [address] CHEST PA AND LATERAL Observed: 06/02/2017 Status: F Source: HAO 8:07 PM [facility] REPOSITORY [facility] Imaging Services [address] [place] [address] Chest PA and Lateral MR#: [id number] Acct: [id number] Name: REANNAALLEY Rep #: [id number] : 1960 M 57 From: Mesfin Hicks DO PCP: Wilfredo Bowen MD Status: REG ER Study: Chest PA and Lateral Date of Exam: 06/02/17 Exam# [id number] Ordering Dr: Denzel Espinosa MD STUDY: X-RAY CHEST REASON FOR EXAM: Male, 57 years old. Fever TECHNIQUE: Frontal and lateral views COMPARISON: August 01, 2016 FINDINGS: The lungs are not fully expanded. There is no demonstrated pleural abnormality. Normal size heart. Normal mediastinum and shellie. Normal visualized pulmonary arteries. Normal visualized aortic arch and descending thoracic aorta. Normal visualized thoracic spine. Normal visualized ribs, clavicles, and shoulders. There is no demonstrated abnormality of the visualized soft tissue structures of the upper abdomen. RAD/Chest PA and Lateral IMPRESSION: Normal x-ray examination of the chest. Electronically Signed: Mesfin Hicks DO at 21:20 EST Tel [phone], Service support , CC: Wilfredo Bowen MD; Denzel Espinosa MD Pulley Mortiser Operator: Signed ALLERGIES ALLERGIES DATE TYPE / CODE NAME / CODE REACTION SEVERITY SOURCE 05/05/2018 Drug No Known Unknown [facility] Allergy/416 Allergies/Q86403 Hospital 990573(SNOM 0388(RXNORM) Repository ED CT) Drug NO KNOWN [facility] Class/75081 ALLERGIES [facility] 1003(SNOMED Repository CT) ENCOUNTERS ENCOUNTERS ADMIT/DISCHARGE ACCOUNT ADMITTING ENCOUNTER LOCATION SOURCE NUMBER CLASS 05/20/2018 [id number] [facility] ing: Repository 05/05/2018 [id number] Ambulatory BMSBuilding:W [facility] Repository 05/05/2018/05/06/20 [id number] Ambulatory [address] ing: Repository 05/03/2018/05/03/20 [id number] Ambulatory [address] Repository 04/27/2018/04/27/20 [id number] Emergency [place] [facility] ing:ED Repository 04/27/2018/04/27/20 [id number] Ambulatory [address] Repository 03/17/2018 [id number] Ambulatory [facility] Hospital ing:WC Repository 02/18/2018/03/06/20 [id number] Ambulatory [place] [facility] ing:[place] Repository 02/13/2018/02/14/20 [id number] Emergency [place] [facility] ing:ED Repository 02/04/2018/02/05/20 [id number] Ambulatory [place] [facility] ing:WC Repository 02/03/2018/02/05/20 [id number] Ambulatory [address] Repository 12/31/2017/01/05/20 [id number] Ambulatory [place] [facility] ing:WC Repository 12/27/2017/12/30/19 [id number] [facility] ing:AO4Aubq: Repository NG761Sfs: 1 12/27/2017 [id number] Shreya Jacob Ambulatory BMSBuilding:B [place] [facility] Repository 12/27/2017 [id number] Shreya Jacob Ambulatory BMSBuilding:B [place] [facility] Repository 12/27/2017 [id number] Shreya Jacob Ambulatory BMSBuilding:B [place] [facility] Repository 12/21/2017/12/23/19 [id number] Ambulatory [address] Repository 10/27/2017/10/29/19 [id number] Ambulatory [address] Repository 09/15/2017 [id number] Ambulatory [facility] Hospital ing:WC Repository 08/30/2017/09/05/19 [id number] Ambulatory [place] [facility] ing:WC Repository 06/20/2017/06/20/19 [id number] [place] [facility] ing:ED Repository 06/02/2017/06/02/20 [id number] Emergency [place] [facility] ing:ED Repository PAYERS PAYERS ENCOUNTER GUARANTOR PAYER SUBSCRIBER SOURCE 05/20/2018 ALLEY R Primary NOT GIVENUNK [place] [id number] S Insurance:SELF PAY [place], [place] Number: Effective Repository [id number]: (330) Date:2018-05-07 [phone] (HP) 05/05/2018 ALLEY R Primary ALLEY R [place] [id number] S Insurance:HUMANA FINLEYDOB: [place] MED[place]olicy [id number] Number: Repository [phone]: (330 [id number] [phone] (HP) Date:9934-09-19RN [place] [id number]: 05/05/2018 Secondary NOT GIVENUNK [place] Insurance:SELF PAY [facility] Number: Effective Repository Date:2018-05-05 05/05/2018 ALLEY R Primary ALLEY R [place] [id number] S Insurance:HUMANA FINLEYDOB: [place] MEDICARE PPOPolicy [id number] Number: Repository [phone]: (330 [id number] [phone] (HP) Date:2402-75-34EJ [address] [address]GZ: 05/05/2018 Secondary NOT GIVENUNK [place] Insurance:SELF PAY [facility] Number: Effective Repository Date:2018-05-04 04/27/2018 ALLEY R Primary ALLEY R [place] [id number] S Insurance:HUMANA FINLEYDOB: [place] MEDICARE PPOPolicy [id number] [place] [place] Number: Repository [phone]: (330 [id number] [phone] (HP) Date:1066-70-51VA [address] [address]YH: 04/27/2018 Secondary NOT GIVENUNK [place] Insurance:SELF PAY [facility] Number: Effective Repository Date:2018-04-27 03/17/2018 ALLEY R Primary ALLEY R [place] [id number] S Insurance:HUMANA FINLEYDOB: [place] MEDICARE PPOPolicy [id number] Number: Repository [phone]: (330 [id number] [phone] (HP) Date:5258-55-61AK [address] [address]QP: 03/17/2018 Secondary NOT GIVENUNK [place] Insurance:SELF PAY [facility] Number: Effective Repository Date:2018-03-07 02/18/2018 ALLEY R Primary ALLEY R [place] [id number] S Insurance:HUMANA FINLEYDOB: [place] MEDICARE PPOPolicy [id number] [place] [place] Number: Repository [address]Fex: 330 [id number] [phone] (HP) Date:4968-16-25SE [address] [address]ZV: 02/18/2018 Secondary NOT GIVENUNK [place] Insurance:SELF PAY [facility] Number: Effective Repository Date:2018-02-05 02/13/2018 ALLEY R Primary ALLEY R [place] [id number] S Insurance:HUMANA FINLEYDOB: [place] MEDICARE PPOPolicy [id number] [facility] [place] [place] Number: Repository [address]Iya: 330 [id number] [phone] (HP) Date:1020-44-71YQ [address] [address]GR: 02/13/2018 Secondary NOT GIVENUNK [place] Insurance:SELF PAY [facility] Number: Effective Repository Date:2018-02-13 02/04/2018 ALLEY R Primary ALLEY R [place] [id number] S Insurance:HUMANA FINLEYDOB: [place] MEDICARE PPOPolicy [id number] Center of the [place] Number: Repository [phone]: (330 [id number] [phone] (HP) Date:0262-48-52JP [address] [place] [address]PJ: 02/04/2018 Secondary NOT GIVENUNK [place] Insurance:SELF PAY [facility] Number: Effective Repository Date:2018-01-05 12/31/2017 ALLEY R Primary ALLEY R [place] [id number] S Insurance:HUMANA FINLEYDOB: [place] MEDICARE PPOPolicy [id number] Center [facility] [place] Number: Repository [phone]: (330) [id number] [phone] (HP) Date:0100-26-65WR [address] [place] [address]AP: 12/31/2017 Secondary NOT GIVENUNK [place] Insurance:SELF PAY [facility] Number: Effective Repository Date:2017-12-24 12/27/2017 ALLEY R Primary ALLEY R [place] [id number] S Insurance:HUMANA FINLEYDOB: [place] MEDICARE PPOPolicy [id number] Center of the [place] [place] Number: Repository [address]Zst: (330 [id number] [phone] (HP) Date:6712-17-41IU [address] [address]NJ: 12/27/2017 Secondary NOT GIVENUNK [place] Insurance:SELF PAY [facility] Number: Effective Repository Date:2017-12-27 12/27/2017 ALLEY R Primary ALLEY R [place] [id number] S Insurance:HUMANA FINLEYDOB: [place] MEDICARE PPOPolicy [id number] Center of the [place] Number: Repository [phone]: (330 [id number] [phone] (HP) Date:8634-93-95VZ [address] [place] [address]ZZ: 12/27/2017 Secondary NOT GIVENUNK [place] Insurance:SELF PAY [facility] Number: Effective Repository Date:2017-12-27 12/27/2017 ALLEY R Primary ALLEY R [place] [id number] S Insurance:HUMANA FINLEYDOB: [place] MEDICARE PPOPolicy [id number] Number: Repository [address]Wgn: 330 [id number] [phone] () Date:1118-68-70XT [place] [id number]: 12/27/2017 Secondary NOT GIVENUNK [place] Insurance:SELF PAY [facility] Number: Effective Repository Date:2017-12-27 12/27/2017 ALLEY R Primary ALLEY R [place] [id number] S Insurance:HUMANA FINLEYDOB: [place] MEDICARE PPOPolicy [id number] Number: Repository [address]Ndv: 330 [id number] [phone] () Date:7121-71-24CA [address] [address]OV: 12/27/2017 Secondary NOT GIVENUNK [place] Insurance:SELF PAY [facility] Number: Effective Repository Date:2017-12-27 09/15/2017 Alley [id number] Primary Alley ForteDOB: [place] S Moi Insurance:HUMANA [id number] [place] PPOP[facility] [facility] [address]Tlb: (330) Number: Repository [phone] () [id number] Date:4800-02-17EL [address] [address]IM: 09/15/2017 Secondary NOT GIVENUNK [place] Insurance:SELF PAY [facility] Number: Effective Repository Date:2017-09-05 08/30/2017 Alley [id number] Primary Alley ReannaDOB: [place] S [place] Insurance:HUMANA [id number] [place] PPOP[facility] [address]Oed: (330) Number: Repository [phone] () [id number] Date:6976-48-27UN [address] [place] [address]ZB: 08/30/2017 Secondary NOT GIVENUNK [place] Insurance:SELF PAY [facility] Number: Effective Repository Date:2017-08-10 06/20/2017 Alley Khanna6 Primary Alley ForteDOB: [place] Insurance:HUMANA [id number] [place] PPOP[facility] [address]Tel: (330) Number: Repository [phone] () [id number] Date:1451-32-45CQ [address] [address]EM: 06/20/2017 Secondary NOT GIVENUNK [place] Insurance:SELF PAY [facility] Number: Effective Repository Date:2017-06-20 06/02/2017 Alley Khanna6 Primary Alley ForteDOB: [place] Insurance:HUMANA [id number] [place] PPOP[facility] [address]Yla: (330) Number: Repository [phone] () [id number] Date:4927-48-68JU [address] [address]JO: 06/02/2017 Secondary NOT GIVENUNK [place] Insurance:SELF PAY [facility] Number: Effective Repository Date:2017-06-02
== END 2018-05-06 23:59 ==
LOC: WC 09:15
PROVIDERS: Family Provider Family Medicine; PCP Family Medicine; Visit Provider Surgery
DX: I87.2 Venous insufficiency (chronic) (peripheral) (principal); L97.822 Non-pressure chronic ulcer of other part of left lower leg with fat layer exposed; L97.812 Non-pressure chronic ulcer of other part of right lower leg with fat layer exposed; F79 Unspecified intellectual disabilities; I10 Essential (primary) hypertension; Z91.19 Patient's noncompliance with other medical treatment and regimen; M79.89 Other specified soft tissue disorders; R60.0 Localized edema
CPT/HCPCS: 29581; 99213; G0463

== ENCOUNTER 2018-05-25 10:00 | Outpatient (RCR) | payer MEDICARE, SELFPAY ==
[2018-05-07 02:13] VITALS: BP 140/70; PULSE 81; RESP 20; TEMP 36.5
[2018-05-10 10:00] VITALS: BP 133/65; PULSE 83; RESP 18; TEMP 36.4; BMI 36.5
--- NOTE | 2018-05-10 10:43 | HP.PCM_ITS ---
(1) Ulcer of right lower extremity with fat layer exposed Status: Chronic Current Visit: Yes Code(s): L97.912 - Non-pressure chronic ulcer of unspecified part of right lower leg with fat layer exposed (2) Venous insufficiency of both lower extremities Status: Chronic Current Visit: Yes Code(s): I87.2 - Venous insufficiency (chronic) (peripheral) (3) Ulcer of left lower extremity with fat layer exposed Status: Acute Current Visit: Yes Code(s): L97.922 - Non-pressure chronic ulcer of unspecified part of left lower leg with fat layer exposed (4) Stasis dermatitis of both legs Status: Acute Current Visit: Yes Code(s): I87.2 - Venous insufficiency (chronic) (peripheral) (5) Ulcer of right calf Status: Resolved Current Visit: Yes Qualifiers: Non-pressure ulcer stage: with fat layer exposed Code(s): L97.219 - Non-pressure chronic ulcer of right calf with unspecified severity (6) Noncompliance Status: Chronic Current Visit: Yes Code(s): Z91.19 - Patient's noncompliance with other medical treatment and regimen (7) Leg swelling Status: Chronic Current Visit: Yes Code(s): M79.89 - Other specified soft tissue disorders (8) Edema of both legs Status: Chronic Current Visit: Yes Code(s): R60.0 - Localized edema (9) Ulcer of left lower leg Status: Acute Current Visit: Yes Qualifiers: Non-pressure ulcer stage: with fat layer exposed Qualified Code(s): L97.922 - Non-pressure chronic ulcer of unspecified part of left lower leg with fat layer exposed Code(s): L97.929 - Non-pressure chronic ulcer of unspecified part of left lower leg with unspecified severity (10) Mental deficiency Status: Chronic Current Visit: Yes Code(s): F79 - Unspecified intellectual disabilities (11) HTN (hypertension) Status: Chronic Current Visit: No Qualifiers: Code(s): I10 - Essential (primary) hypertension History of Present Illness Chief Complaint: Recurrent bilateral lower extremity ulcers. History of Wound: Mr. Alonso is a 58-year-old well-known to the [facility] with a history of bilateral lower extremity edema and recurrent lower extremity ulcers, thought to be venous in origin. The patient is also known to pick at his wounds/serrations. The patient also has some intellectual disability. He was last seen in and now returns with bilateral but predominantly left lower extremity wounds/ulcers. Patient admits to picking a lot at his legs. He was seen in the Emergency Room and started on antibiotics for suspected cellulitis. He was subsequently seen by his primary care physician who referred him here. He denies significant pain in his lower ext remities. He also denies any significant discharge, chills, fever or otherwise feeling of unwell. The patient has a history of noncompliance. A noninvasive lower extremity arterial study performed approximately 1 year ago revealed no evidence of arterial occlusive disease. Past Medical History Past Medical History: Chronic Problems Ulcer of right lower extremity with fat layer exposed (Chronic) Venous insufficiency of both lower extremities (Chronic) Noncompliance (Chronic) Leg swelling (Chronic) Edema of both legs (Chronic) Cellulitis of both lower extremities (Chronic) Mental deficiency (Chronic) HTN (hypertension) (Chronic) Surgical History: tonsillectomy Allergies/Adverse Reactions: Allergies No Known Allergies Allergy (Verified 05/05/18 11:38) Home Medications: Ambulatory Orders Medication Instructions Recorded Lisinopril [Zestril] 10 mg PO DAILY 12/15/16 Smz/Tmp Ds [Bactrim Ds] 1 tab PO BID #14 tab 04/27/18 Cephalexin [Keflex] TID 05/05/18 - Family History Paternal - - No heart disease. Patient's father is alive, aged 90, and healthy. Maternal Diabetes, - - History of cardiac disease Lives: With Family Smoking Status: Never smoker Tobacco Use: Non-smoker Alcohol: None Drugs: None Review of Systems Constitutional: Denies: Chills, Fever, Weight Change Eyes: Denies: Pain, Vision Change HEENT: Denies: Difficulty Hearing, Difficulty Swallowing, Sinus Congestion Cardiovascular: Denies: Chest Pain, Palpitations Respiratory: Denies: Cough, Shortness of Breath Gastrointestinal: Denies: Diarrhea, Nausea, Vomiting Genitourinary: Denies: Dysuria, Hematuria Endocrine: Denies: Heat/ Cold Intolerance, Polydipsia, Polyuria Hematologic/ Lymphatic: Denies: Easy Bruising, Easy Bleeding - Physical Exam Vital Signs Temp Pulse Resp BP 97.5 F L 83 18 133/65 H 05/10/18 10:00 05/10/18 10:00 05/10/18 10:00 05/10/18 10:00 General: Alert, Oriented x3, Cooperative, No apparent distress, Well developed, Well nourished, - - This patient suffers from moderate cognitive impairment. He is communicative, and appropriate. He is cooperative. HEENT: Atraumatic, PERRLA, EOMI, Normocephalic Oral: Moist Mucosa Neck: No JVD, Negative Carotid Bruits, No Nodes, No Nuchal Rigidity, Trachea Midline Lungs: Clear to auscultation, Normal air movement, No rhonchi, No wheeze, No rales Cardiovascular: Regular rate, Regular Rhythm, Normal S1, Normal S2, No murmurs Abdomen: Soft, Non Tender, Non-Distended Extremities: No clubbing, No cyanosis, No Calf Tenderness, - - Mild bilateral lower extremity swelling and edema is noted. Diffuse erythema is noted bilaterally, thought to be inflammatory rather than cellulitic. Multiple small, superficial ulcerations are noted bilaterally in the calves, more prominent in the left lower extremity. There is a moderate amount of bioburden, particularly involving the ulcerations on the left. Dimensions are documented elsewhere. Wound Measurements and Assessment WC - Nurse 1 - General Ulcer Measurement Start: 05/10/18 09:59 Freq: Status: Active Protocol: Activity Type Activity Date Activity User E-Sign Co-Sign Detail Recorded Client Recorded Date Recorded By Document 05/10/18 10:00 [id number] 05/10/18 10:10 05/10/18 10:00 Wound Center Nurse 1 [Ulcer Assessment] #12 L Med Cluster -Combined with other wound No -Current Size (cm) - Length 3.1 -Current Size (cm) - Width 4.5 -Current Size (cm) - Depth 0.1 -Total Square Cm 13.95 -Photo Taken No -Epithelialization None Present -Tunneling No -Undermining/Tunneling No -Circular Undermining No -Exudate Amt Large (67-100%) -Exudate Type Serosanguineous -Wound Margin Distinct, Outline Attached -Granulation Amt Medium (34-66%) -Granulation Quality Red -Slough/Fibrin Yes -Necrosis Amt None Present (0 %) -Necrotic Tissue Type Adherent Slough -Structure Exposed None/Limited to Skin Breakdown -Texture (Kathleen-wound Skin Appearance) Localized Edema -Moisture (Kathleen-wound Skin Appearance Assessed ) Dry/Scaly -Color (Kathleen-wound Skin Appearance) Hemosiderin Staining -Temperature (Kathleen-wound Skin No Abnormality Appearance) (Pt Warm) -Tenderness on Palpation (Kathleen-wound Yes Skin Appearance) -Ulcer Cleansing Rinsed/ Irrigated with Saline -Foul Odor after Cleansing No -Anesthetic Used 4% Lidocaine Solution #11 L Lat Cluster -Combined with other wound No -Current Size (cm) - Length 17.3 -Current Size (cm) - Width 5.2 -Current Size (cm) - Depth 0.2 -Total Square Cm 89.96 -Photo Taken No -Epithelialization None Present -Tunneling No -Undermining/Tunneling No -Circular Undermining No -Exudate Amt Large (67-100%) -Exudate Type Serosanguineous -Wound Margin Distinct, Outline Attached -Granulation Amt Medium (34-66%) -Granulation Quality Red -Slough/Fibrin Yes -Necrosis Amt Medium (34-66%) -Necrotic Tissue Type Adherent Slough -Structure Exposed None/Limited to Skin Breakdown -Texture (Kathleen-wound Skin Appearance) Localized Edema -Moisture (Kathleen-wound Skin Appearance Assessed ) Dry/Scaly -Color (Kathleen-wound Skin Appearance) Hemosiderin Staining -Temperature (Kathleen-wound Skin No Abnormality Appearance) (Pt Warm) -Tenderness on Palpation (Kathleen-wound Yes Skin Appearance) -Ulcer Cleansing Rinsed/ Irrigated with Saline -Foul Odor after Cleansing No -Anesthetic Used 4% Lidocaine Solution [Edema Assessment] -Lower Limb Edema Present Yes -Right Calf (cm) 42.5 -Right Ankle (cm) 24.5 -Left Calf (cm) 44 -Left Ankle (cm) 24 Neurological: Cranial nerves II-XII grossly intact, - - Cognitive impairment is apparent. Psych/Mental Status: Appropriate, Impulsive, - - The patient demonstrates a moderate cognitive impairment, but is communicative and cooperative. Debridement Note Laterality: Left - Calf Type of Debridement: Excisional debridement Anesthesia Used: 5% Lidocaine Gel Depth: Down to and including healthy tissue, in the subcutaneous layer Percentage of wound debrided: 50 Instrument Used: 3mm curette Severity: Fat Layer Exposed Amount of bleeding with debridement: Mild Bleeding Controlled with: Compression and gauze Patient tolerated procedure well - The patient tolerated the debridement, but was not cooperative with the debridement. He seemed to resist, perhaps in part due to mild discomfort, but seemingly for other reasons as well. Assessment/Plan Active Problems Ulcer of right lower extremity with fat layer exposed (Chronic) Venous insufficiency of both lower extremities (Chronic) Ulcer of left lower extremity with fat layer exposed (Acute) Stasis dermatitis of both legs (Acute) Noncompliance (Chronic) Leg swelling (Chronic) Edema of both legs (Chronic) Ulcer of left lower leg (Acute) Mental deficiency (Chronic) Assessment: Recurrent bilateral lower extremity ulcers/wound. Intellectual disability. Bilateral lower extremity edema. Stasis dermatitis. Chronic venous insufficiency. Plan: We are to implement the use of compression by means of Unna boots, which will be applied to the lower extremities bilaterally. These will be changed twice weekly. The boots appear appropriate relative to the patient's presenting manifestations, there will also serve as a barrier to picking and manual interference on the patient's part. He has been advised to elevate his lower extremities as much as possible, and to avoid prolonged idle sitting. However, given his diminished cognitive state, compliance with recommended measures is doubtful. Patient is return in 1-2 weeks for reevaluation. Increased protein intake also recommended. Compliance was strongly encouraged. All his questions were answered and he was advised to call with any further questions or concerns. Influenza vaccine was not administered today. The patient is not a smoker. He is 32.2, which places the patient in a an obese class I category. Weight loss has been recommended, and collaboration with the patient's primary care brennon jackson has been advised. This note was generated with [employer] software. It may contain incorrect words, spelling, and punctuation that were not noted in checking the note before signing.
[2018-05-13 14:59] VITALS: BP 142/86; PULSE 82; RESP 18; TEMP 36.6; BMI 36.5
[2018-05-17 14:30] VITALS: BP 133/72; PULSE 77; RESP 18; TEMP 36.9; BMI 36.5
[2018-05-20 14:57] VITALS: BP 139/72; PULSE 78; RESP 18; TEMP 36.9; BMI 36.5
[2018-05-25 10:33] VITALS: BP 139/74; PULSE 70; RESP 20; TEMP 37; BMI 36.5
--- NOTE | 2018-05-25 12:31 | PN.PCM_ITS ---
(1) Ulcer of right lower extremity, limited to breakdown of skin Status: Acute Current Visit: Yes Code(s): L97.911 - Non-pressure chronic ulcer of unspecified part of right lower leg limited to breakdown of skin (2) Stasis dermatitis of both legs Status: Acute Current Visit: Yes Code(s): I87.2 - Venous insufficiency (chronic) (peripheral) (3) Ulcer of left lower extremity with fat layer exposed Status: Acute Current Visit: Yes Code(s): L97.922 - Non-pressure chronic ulcer of unspecified part of left lower leg with fat layer exposed Type of Wound Chief Complaint: Recurrent bilateral lower extremity ulcers. History of Wound: Mr. Alonso is a 58-year-old well-known to the [facility] with a history of bilateral lower extremity edema and recurrent lower extremity ulcers, thought to be venous in origin. The patient is also known to pick at his wounds/serrations. The patient also has some intellectual disability. He was last seen in January/February and now returns with bilateral but predominantly left lower extremity wounds/ulcers. Patient admits to picking a lot at his legs. He was seen in the Emergency Room and started on antibiotics for suspected cellulitis. He was subsequently seen by his primary care physician who referred him here. He denies significant pain in his lower extremities. He also denies any significant discharge, chills, fever or otherwise feeling of unwell. The patient has a history of noncompliance. A noninvasive lower extremity arterial study performed approximately 1 year ago revealed no evidence of arterial occlusive disease. Progress of Wound: Courtesy visit for Dr. De Leon. Healed. Superficial skin ulcer right lower extremity noted. Minimal - Physical Exam Vital Signs Temp Pulse Resp BP 98.6 F 70 20 H 139/74 H 05/25/18 10:33 05/25/18 10:33 05/25/18 10:33 05/25/18 10:33 General: Alert, Cooperative, No apparent distress HEENT: Atraumatic Oral: Moist Mucosa Neck: Supple Lungs: Normal air movement Cardiovascular: Regular rate, Regular Rhythm Abdomen: Non Tender, Obese Extremities: No cyanosis, Edema Skin: Ulcer/ Wound Wound Measurements and Assessment WC - Nurse 1 - General Ulcer Measurement Start: 05/10/18 09:59 Freq: Status: Active Protocol: Activity Type Activity Date Activity User E-Sign Co-Sign Detail Recorded Client Recorded Date Recorded By Document 12/19/18 10:33 TYREL [id number] 05/25/18 10:46 TYREL 05/25/18 10:33 Wound Center Nurse 1 [Ulcer Assessment] #12 L Med Cluster -Combined with other wound No -Current Size (cm) - Length 0.1 -Current Size (cm) - Width 0.1 -Current Size (cm) - Depth 0.1 -Total Square Cm 0.01 -Date of Last Picture (Recall this 05/25/18 field) -Photo Taken Yes -Epithelialization Large 67-100% -Tunneling No -Undermining/Tunneling No -Circular Undermining No -Classification - Thickness Partial Thickness -Exudate Amt None Present (0 %) -Exudate Type Serous -Granulation Amt None Present (0 %) -Granulation Quality N/A -Slough/Fibrin No -Necrosis Amt None Present (0 %) -Structure Exposed N/A -Texture (Kathleen-wound Skin Appearance) No Abnormality Friable -Moisture (Kathleen-wound Skin Appearance No Abnormality ) -Color (Kathleen-wound Skin Appearance) No Abnormality -Temperature (Kathleen-wound Skin No Abnormality Appearance) (Pt Warm) -Tenderness on Palpation (Kathleen-wound No Skin Appearance) -Ulcer Cleansing PURELL -Foul Odor after Cleansing No #11 L Lat Cluster -Combined with other wound No -Current Size (cm) - Length 0.1 -Current Size (cm) - Width 0.1 -Current Size (cm) - Depth 0.1 -Total Square Cm 0.01 -Date of Last Picture (Recall this 05/25/18 field) -Photo Taken Yes -Epithelialization Large 67-100% -Tunneling No -Undermining/Tunneling No -Circular Undermining No -Classification - Thickness Partial Thickness -Exudate Amt None Present (0 %) -Granulation Amt None Present (0 %) -Granulation Quality N/A -Slough/Fibrin No -Necrosis Amt None Present (0 %) -Structure Exposed N/A -Texture (Kathleen-wound Skin Appearance) Friable -Moisture (Kathleen-wound Skin Appearance No Abnormality ) -Color (Kathleen-wound Skin Appearance) No Abnormality -Temperature (Kathleen-wound Skin No Abnormality Appearance) (Pt Warm) -Tenderness on Palpation (Kathleen-wound No Skin Appearance) -Ulcer Cleansing PURELL -Foul Odor after Cleansing No [Edema Assessment] -Lower Limb Edema Present No -Right Calf (cm) 40.7 -Point of measurement (cm from the 24.5 medial instep) -Left Calf (cm) 425 -Left Ankle (cm) 23.4 WC - Nurse 2 - General Ulcer CM Notes Start: 05/10/18 09:59 Freq: Status: Active Protocol: Activity Type Activity Date Activity User E-Sign Co-Sign Detail Recorded Client Recorded Date Recorded By Document 05/25/18 11:28 MW [id number] 05/25/18 11:29 MW 05/25/18 11:28 Wound Center Nurse 2 [Procedure/Treatment] #12 L Med Cluster -Time 11:15 -Correct Patient Yes -Correct Side, Site, Position Yes -Correct Procedure Yes -Procedure Performed No -Post Debridement Size (cm) - Length 0.1 -Post Debridement Size (cm) - Width 0.1 -Post Debridement Size (cm) - Depth 0.1 -Total Square Cm 0.01 -Wound/Ulcer Outcome Not Healed -Bleeding Controlled with NA -Offloading No -Treatment Response Procedure Tolerated Well #11 L Lat Cluster -Time 11:28 -Correct Patient Yes -Correct Side, Site, Position Yes -Correct Procedure Yes -Procedure Performed No -Post Debridement Size (cm) - Length 0.1 -Post Debridement Size (cm) - Width 0.1 -Post Debridement Size (cm) - Depth 0.1 -Total Square Cm 0.01 -Wound/Ulcer Outcome Not Healed -Ulcer Cleansing Rinsed/ Irrigated with Saline -Foul Odor after Cleansing No -Bioengineered Tissue No -Bleeding Controlled with NA -Offloading No -Treatment Response Procedure Tolerated Well [See Physician Procedure note for Specifics] Pain Scale: 0-10 Numeric [Pain] -Is Patient Pain Free? Yes Musculoskeletal: No Muscle Wasting Neurological: Cranial nerves II-XII grossly intact Psych/Mental Status: Normal Affect Debridement Note Post-Debridement Measurements/Treatment WC - Nurse 2 - General Ulcer CM Notes Start: 05/10/18 09:59 Freq: Status: Active Protocol: Activity Type Activity Date Activity User E-Sign Co-Sign Detail Recorded Client Recorded Date Recorded By Document 05/10/18 10:39 DV [id number] 05/10/18 10:46 DV Document 05/25/18 11:28 MW [id number] 05/25/18 11:29 MW 05/10/1818 10:39 11:28 Wound Center Nurse 2 #12 L Med Cluster -Time 10:44 11:15 -Correct Patient Yes Yes -Correct Side, Site, Position Yes Yes -Correct Procedure Yes Yes -Procedure Performed Yes No -Type of Procedure Debridement -Clinical Debridement Subcutaneous -Post Debridement Size (cm) - Length 4.0 0.1 -Post Debridement Size (cm) - Width 5.0 0.1 -Post Debridement Size (cm) - Depth 0.1 0.1 -Total Square Cm 20.00 0.01 -Wound/Ulcer Outcome Not Healed Not Healed -Ulcer Cleansing Rinsed/ Irrigated with Saline -Foul Odor after Cleansing No -Bioengineered Tissue No -Bleeding Controlled with Pressure NA -Offloading No No -Treatment Response Procedure Procedure Tolerated Well Tolerated Well #11 L Lat Cluster -Time 10:45 11:28 -Correct Patient Yes Yes -Correct Side, Site, Position Yes Yes -Correct Procedure Yes Yes -Procedure Performed Yes No -Type of Procedure Debridement -Clinical Debridement Subcutaneous -Post Debridement Size (cm) - Length 18.0 0.1 -Post Debridement Size (cm) - Width 5.5 0.1 -Post Debridement Size (cm) - Depth 0.2 0.1 -Total Square Cm 99.00 0.01 -Wound/Ulcer Outcome Not Healed Not Healed -Ulcer Cleansing Rinsed/ Rinsed/ Irrigated with Irrigated with Saline Saline -Foul Odor after Cleansing No No -Bioengineered Tissue No No -Bleeding Controlled with Pressure NA -Offloading No No -Treatment Response Procedure Procedure Tolerated Well Tolerated Well Pain Scale: 0-10 Numeric Is Patient Pain Free? No Yes No debridement was completed today Assessment/Plan Active Problems Ulcer of right lower extremity with fat layer exposed (Chronic) Venous insufficiency of both lower extremities (Chronic) Ulcer of left lower extremity with fat layer exposed (Acute) Stasis dermatitis of both legs (Acute) Ulcer of right lower extremity, limited to breakdown of skin (Acute) Noncompliance (Chronic) Leg swelling (Chronic) Edema of both legs (Chronic) Ulcer of left lower leg (Acute) Mental deficiency (Chronic) Assessment: Recurrent bilateral lower extremity ulcers/wound. Intellectual disability. Bilateral lower extremity edema. Stasis dermatitis. Chronic venous insufficiency. Plan: Old ulcers have essentially healed. Superficial right lower extremity ulcer present. Due to patient's history I am concerned that this may worsen from picking. Adaptic over top. If possible, change daily. I would also like for him to follow-up in about [address] De Leon. Double layer Tubigrip for edema management. Increased protein intake. Elevate lower extremities when seated and in bed. Exercise recommended. Avoid idle sitting or standing. He was advised to call with any questions or concerns. This note was generated with [employer] dictation software. It may contain incorrect words, spelling, and punctuation that were not noted in checking the note before signing.
== END 2018-06-06 23:59 ==
LOC: WC 10:00
PROVIDERS: Family Provider Family Medicine; PCP Family Medicine; Visit Provider Surgery
DX: I87.2 Venous insufficiency (chronic) (peripheral) (principal); L97.222 Non-pressure chronic ulcer of left calf with fat layer exposed; Z91.19 Patient's noncompliance with other medical treatment and regimen; M79.89 Other specified soft tissue disorders; R60.0 Localized edema; I10 Essential (primary) hypertension; F79 Unspecified intellectual disabilities
CPT/HCPCS: 11042; 11045; 29580; 99213; H0035; H2020; 90834; G0463

== ENCOUNTER 2018-06-21 10:00 | Outpatient (RCR) | payer MEDICARE, SELFPAY ==
[2018-06-07 01:27] VITALS: BP 139/74; PULSE 70; RESP 20; TEMP 37
[2018-06-14 09:42] VITALS: BP 148/82; PULSE 77; RESP 18; TEMP 36.3; BMI 36.5
--- NOTE | 2018-06-14 10:04 | HP.PCM_ITS ---
(1) Venous insufficiency of both lower extremities Status: Chronic Current Visit: Yes Code(s): I87.2 - Venous insufficiency (chronic) (peripheral) (2) Stasis dermatitis of both legs Status: Chronic Current Visit: Yes Code(s): I87.2 - Venous insufficiency (chronic) (peripheral) (3) Ulcer of right lower extremity, limited to breakdown of skin Status: Chronic Current Visit: Yes Code(s): L97.911 - Non-pressure chronic ulcer of unspecified part of right lower leg limited to breakdown of skin (4) Noncompliance Status: Chronic Current Visit: Yes Code(s): Z91.19 - Patient's noncompliance with other medical treatment and regimen (5) Leg swelling Status: Chronic Current Visit: Yes Code(s): M79.89 - Other specified soft tissue disorders (6) Edema of both legs Status: Chronic Current Visit: Yes Code(s): R60.0 - Localized edema (7) Ulcer of left lower leg Status: Chronic Current Visit: Yes Qualifiers: Code(s): L97.929 - Non-pressure chronic ulcer of unspecified part of left lower leg with unspecified severity (8) Mental deficiency Status: Chronic Current Visit: Yes Code(s): F79 - Unspecified intellectual disabilities (9) HTN (hypertension) Status: Chronic Current Visit: No Qualifiers: Code(s): I10 - Essential (primary) hypertension History of Present Illness Chief Complaint: Recurrent bilateral lower extremity ulcers. History of Wound: Mr. Alonso is a 58-year-old well-known to [facility] with a history of bilateral lower extremity edema and recurrent lower extremity ulcers, thought to be venous in origin. The patient is also known to pick at his wounds/ulcerations. The patient also has some intellectual disability. He was last seen in January/February and has returned with bilateral lower extremity ulcers. Patient admits to picking a lot at his legs. His primary care physician referred him here. He denies significant pain in his lower extremities. He also denies any significant discharge, chills, fever or otherwise feeling unwell. The patient has a history of noncompliance. A noninvasive lower extremity arterial study performed approximately 1 year ago revealed no evidence of arterial occlusive disease. Past Medical History Past Medical History: Chronic Problems Ulcer of right lower extremity with fat layer exposed (Chronic) Venous insufficiency of both lower extremities (Chronic) Stasis dermatitis of both legs (Chronic) Ulcer of right lower extremity, limited to breakdown of skin (Chronic) Noncompliance (Chronic) Leg swelling (Chronic) Edema of both legs (Chronic) Cellulitis of both lower extremities (Chronic) Ulcer of left lower leg (Chronic) Mental deficiency (Chronic) HTN (hypertension) (Chronic) Surgical History: tonsillectomy Allergies/Adverse Reactions: Allergies No Known Allergies Allergy (Verified 05/05/18 11:38) Home Medications: Ambulatory Orders Medication Instructions Recorded Lisinopril [Zestril] 10 mg PO DAILY 12/15/16 Smz/Tmp Ds [Bactrim Ds] 1 tab PO BID #14 tab 04/27/18 Cephalexin [Keflex] TID 05/05/18 - Family History Paternal - - No heart disease. Patient's father is alive, aged 90, and healthy. Maternal Diabetes, - - History of cardiac disease Smoking Status: Never smoker Tobacco Use: Non-smoker Review of Systems Constitutional: Denies: Chills, Fever, Weight Change Eyes: Denies: Pain, Vision Change HEENT: Denies: Difficulty Hearing, Difficulty Swallowing, Sinus Congestion Cardiovascular: Denies: Chest Pain, Palpitations Respiratory: Denies: Cough, Shortness of Breath Gastrointestinal: Denies: Diarrhea, Nausea, Vomiting Genitourinary: Denies: Dysuria, Hematuria Endocrine: Denies: Heat/ Cold Intolerance, Polydipsia, Polyuria Hematologic/ Lymphatic: Denies: Easy Bruising, Easy Bleeding - Physical Exam Vital Signs Temp Pulse Resp BP 97.3 F L 77 18 148/82 H 06/14/18 09:42 06/14/18 09:42 06/14/18 09:42 06/14/18 09:42 General: Alert, Cooperative, No apparent distress, Well developed, Well nourished, - - Patient demonstrates some degree of intellectual deficiency HEENT: Atraumatic, PERRLA, EOMI, Normocephalic Oral: Moist Mucosa Neck: No JVD Lungs: Normal air movement Abdomen: Non-Distended Extremities: No clubbing, No cyanosis, No Calf Tenderness, - - Mild bilateral lower extremity swelling and edema is present. There are several superficial ulcerations/excoriations in his lower extremities bilaterally. Dimensions are documented elsewhere. There is no sign of significant infection or cellulitis. Wound Measurements and Assessment WC - Nurse 1 - General Ulcer Measurement Start: 06/14/18 08:24 Freq: Status: Active Protocol: Activity Type Activity Date Activity User E-Sign Co-Sign Detail Recorded Client Recorded Date Recorded By Document 06/14/18 09:42 [id number] 06/14/18 09:48 06/14/18 09:42 [facility] Nurse 1 [Ulcer Assessment] #13 RIGHT LAT. LE -Combined with other wound No -Current Size (cm) - Length 0.7 -Current Size (cm) - Width 0.9 -Current Size (cm) - Depth 0.1 -Total Square Cm 0.63 -Date of Last Picture (Recall this 06/14/18 field) -Photo Taken Yes -Epithelialization None Present -Tunneling No -Undermining/Tunneling No -Circular Undermining No -Exudate Amt None Present (0 %) -Wound Margin Distinct, Outline Attached -Granulation Quality N/A -Moisture (Kathleen-wound Skin Appearance Dry/Scaly ) -Color (Kathleen-wound Skin Appearance) Assessed Erythema Hemosiderin Staining -Temperature (Kathleen-wound Skin No Abnormality Appearance) (Pt Warm) -Tenderness on Palpation (Kathleen-wound No Skin Appearance) -Ulcer Cleansing Rinsed/ Irrigated with Saline -Foul Odor after Cleansing No -Anesthetic Used 5% Lidocaine Gel #12 L Med Cluster -Combined with other wound No -Current Size (cm) - Length 5.5 -Current Size (cm) - Width 0.4 -Current Size (cm) - Depth 0.1 -Total Square Cm 2.20 -Date of Last Picture (Recall this 06/14/18 field) -Photo Taken Yes -Epithelialization None Present -Tunneling No -Undermining/Tunneling No -Circular Undermining No -Exudate Amt None Present (0 %) -Wound Margin Distinct, Outline Attached -Moisture (Kathleen-wound Skin Appearance Dry/Scaly ) -Temperature (Kathleen-wound Skin No Abnormality Appearance) (Pt Warm) -Tenderness on Palpation (Kathleen-wound No Skin Appearance) -Ulcer Cleansing Rinsed/ Irrigated with Saline -Foul Odor after Cleansing No -Anesthetic Used 5% Lidocaine Gel #11 L Lat Cluster -Combined with other wound No -Current Size (cm) - Length 0.1 -Current Size (cm) - Width 0.1 -Current Size (cm) - Depth 0.1 -Total Square Cm 0.01 -Date of Last Picture (Recall this 06/14/18 field) -Photo Taken Yes -Epithelialization Large 67-100% [Edema Assessment] -Lower Limb Edema Present Yes -Right Calf (cm) 43 -Right Ankle (cm) 24.8 -Left Calf (cm) 44 -Left Ankle (cm) 23.5 Musculoskeletal: No Muscle Wasting Neurological: Cranial nerves II-XII grossly intact Psych/Mental Status: Normal Affect, - - Patient demonstrates some degree of intellectual deficiency. Debridement Note Laterality: Right - Calf Type of Debridement: Selective debridement Anesthesia Used: 5% Lidocaine Gel Depth: Down to and including healthy tissue Percentage of wound debrided: 100 Instrument Used: 3mm curette Severity: Limited To Skin Breakdown Amount of bleeding with debridement: Mild Bleeding Controlled with: Compression and gauze Patient tolerated procedure well - Additional Wound Laterality: Left - Half Type of Debridement: Selective debridement Anesthesia Used: 5% Lidocaine Gel Depth: Down to and including healthy tissue Percentage of wound debrided: 100 Instrument Used: 3mm curette Severity: Limited To Skin Breakdown Amount of bleeding with debridement: Mild Bleeding Controlled with: Compression and gauze Patient tolerated procedure: Patient tolerated procedure well Assessment/Plan Active Problems Venous insufficiency of both lower extremities (Chronic) Stasis dermatitis of both legs (Chronic) Ulcer of right lower extremity, limited to breakdown of skin (Chronic) Noncompliance (Chronic) Leg swelling (Chronic) Edema of both legs (Chronic) Ulcer of left lower leg (Chronic) Mental deficiency (Chronic) Assessment: Recurrent bilateral lower extremity ulcers/wound. Intellectual disability. Bilateral lower extremity edema. Stasis dermatitis. Chronic venous insufficiency. Plan: Superficial lower extremity ulcerations present bilaterally. We are to implement the use of Unna boots, which will be applied today bilaterally, will be changed twice weekly. Patient is known to be noncompliant, and has an aptitude to picking and scratching at his ulcerations. It is hoped that the Unna boots will insulate his ulcerations from his tendency to pick and scratch. Patient will return in 1 week for reassessment. The patient is to assure adequate nutritional intake. He has been advised to elevate his lower extremities as much as possible. He has been advised to sleep in a recumbent position, with his legs at heart level. He has a tendency to sleep in a chair, unfortunately. Avoidance of prolonged, idle sitting has been recommended. Compression, as mentioned above, is to be implemented by means of Unna boots, which will be applied bilaterally. Influenza vaccine was not administered today. The patient is not a smoker. His BMI is 32.2, which places him in an obese class I category. Weight loss has been recommended, in collaboration with his primary care physician has been advised. This note was generated with [employer] dictation software. It may contain incorrect words, spelling, and punctuation that were not noted in checking the note before signing.
[2018-06-17 10:06] VITALS: BP 167/87; PULSE 71; RESP 18; TEMP 37; BMI 36.5
[2018-06-21 10:03] VITALS: BP 149/82; PULSE 77; RESP 16; TEMP 36.7; BMI 36.5
--- NOTE | 2018-06-21 10:57 | HP.PCM_ITS ---
(1) Venous insufficiency of both lower extremities Status: Chronic Current Visit: Yes Code(s): I87.2 - Venous insufficiency (chronic) (peripheral) (2) Stasis dermatitis of both legs Status: Chronic Current Visit: Yes Code(s): I87.2 - Venous insufficiency (chronic) (peripheral) (3) Ulcer of right lower extremity, limited to breakdown of skin Status: Chronic Current Visit: Yes Code(s): L97.911 - Non-pressure chronic ulcer of unspecified part of right lower leg limited to breakdown of skin (4) Noncompliance Status: Chronic Current Visit: Yes Code(s): Z91.19 - Patient's noncompliance with other medical treatment and regimen (5) Leg swelling Status: Chronic Current Visit: Yes Code(s): M79.89 - Other specified soft tissue disorders (6) Edema of both legs Status: Chronic Current Visit: Yes Code(s): R60.0 - Localized edema (7) Ulcer of left lower leg Status: Chronic Current Visit: Yes Qualifiers: Code(s): L97.929 - Non-pressure chronic ulcer of unspecified part of left lower leg with unspecified severity (8) Mental deficiency Status: Chronic Current Visit: Yes Code(s): F79 - Unspecified intellectual disabilities (9) HTN (hypertension) Status: Chronic Current Visit: No Qualifiers: Code(s): I10 - Essential (primary) hypertension History of Present Illness Chief Complaint: Recurrent bilateral lower extremity ulcers. History of Wound: Mr. Alonso is a 58-year-old well-known to the [facility] with a history of bilateral lower extremity edema and recurrent lower extremity ulcers, thought to be venous in origin. The patient is also known to pick at his wounds/ulcerations. The patient also has some intellectual disability. He was last seen in January/February and has returned with bilateral lower extremity ulcers. Patient admits to picking a lot at his legs. His primary care physician referred him here. He denies significant pain in his lower extremities. He also denies any significant discharge, chills, fever or otherwise feeling unwell. The patient has a history of noncompliance. A noninvasive lower extremity arterial study performed approximately 1 year ago revealed no evidence of arterial occlusive disease. Past Medical History Past Medical History: Chronic Problems Ulcer of right lower extremity with fat layer exposed (Chronic) Venous insufficiency of both lower extremities (Chronic) Stasis dermatitis of both legs (Chronic) Ulcer of right lower extremity, limited to breakdown of skin (Chronic) Noncompliance (Chronic) Leg swelling (Chronic) Edema of both legs (Chronic) Cellulitis of both lower extremities (Chronic) Ulcer of left lower leg (Chronic) Mental deficiency (Chronic) HTN (hypertension) (Chronic) Surgical History: tonsillectomy Allergies/Adverse Reactions: Allergies No Known Allergies Allergy (Verified 05/05/18 11:38) Home Medications: Ambulatory Orders Medication Instructions Recorded Lisinopril [Zestril] 10 mg PO DAILY 12/15/16 Smz/Tmp Ds [Bactrim Ds] 1 tab PO BID #14 tab 04/27/18 Cephalexin [Keflex] TID 05/05/18 - Family History Paternal - - No heart disease. Patient's father is alive, aged 90, and healthy. Maternal Diabetes, - - History of cardiac disease Smoking Status: Never smoker Tobacco Use: Non-smoker Review of Systems Constitutional: Denies: Chills, Fever, Weight Change Eyes: Denies: Pain, Vision Change HEENT: Denies: Difficulty Hearing, Difficulty Swallowing, Sinus Congestion Cardiovascular: Denies: Chest Pain, Palpitations Respiratory: Denies: Cough, Shortness of Breath Gastrointestinal: Denies: Diarrhea, Nausea, Vomiting Genitourinary: Denies: Dysuria, Hematuria Endocrine: Denies: Heat/ Cold Intolerance, Polydipsia, Polyuria Hematologic/ Lymphatic: Denies: Easy Bruising, Easy Bleeding - Physical Exam Vital Signs Temp Pulse Resp BP 98.0 F 77 16 149/82 H 06/21/18 10:03 06/21/18 10:03 06/21/18 10:03 06/21/18 10:03 General: Alert, Cooperative, No apparent distress, Well developed, Well nourished, - - Patient suffers from apparent mental deficiencies. HEENT: Atraumatic, PERRLA, EOMI, Normocephalic Oral: Moist Mucosa Neck: No JVD Lungs: Normal air movement Abdomen: Non-Distended Extremities: No clubbing, No cyanosis, No edema, - - There is no significant s welling or edema in the lower extremities bilaterally. There are no open wounds or ulcerations. Those for which he presented recently are now completely healed. Skin: No rashes Wound Measurements and Assessment WC - Nurse 1 - General Ulcer Measurement Start: 06/14/18 08:24 Freq: Status: Active Protocol: Activity Type Activity Date Activity User E-Sign Co-Sign Detail Recorded Client Recorded Date Recorded By Document 06/21/18 10:03 JOANN [id number] 06/21/18 10:06 JOANN 06/21/18 10:03 W[facility] Center Nurse 1 [Ulcer Assessment] #13 RIGHT LAT. LE -Combined with other wound No -Current Size (cm) - Length 0 -Current Size (cm) - Width 0 -Current Size (cm) - Depth 0 -Total Square Cm 0 -Photo Taken Yes -Epithelialization Large 67-100% #12 L Med Cluster -Combined with other wound No -Current Size (cm) - Length 0 -Current Size (cm) - Width 0 -Current Size (cm) - Depth 0 -Total Square Cm 0 -Photo Taken Yes -Epithelialization Large 67-100% [Edema Assessment] -Lower Limb Edema Present Yes -Right Calf (cm) 42.3 -Right Ankle (cm) 24.0 -Left Calf (cm) 41.7 -Left Ankle (cm) 22.3 WC - Nurse 2 - General Ulcer CM Notes Start: 06/14/18 08:24 Freq: Status: Active Protocol: Activity Type Activity Date Activity User E-Sign Co-Sign Detail Recorded Client Recorded Date Recorded By Document 06/21/18 10:49 [email or web address] [id number] 06/21/18 10:51 [email or web address] 06/21/18 10:49 Wound Center Nurse 2 [Procedure/Treatment] #13 RIGHT LAT. LE -Time 10:50 -Correct Patient Yes -Correct Side, Site, Position Yes -Procedure Performed No -Wound/Ulcer Outcome Healed- Epithelialized #12 L Med Cluster -Time 10:50 -Correct Patient Yes -Correct Side, Site, Position Yes -Procedure Performed No -Wound/Ulcer Outcome Healed- Epithelialized [See Physician Procedure note for Specifics] Pain Scale: 0-10 Numeric [Pain] -Is Patient Pain Free? Yes Musculoskeletal: No Muscle Wasting Neurological: Cranial nerves II-XII grossly intact, Neuro grossly intact Psych/Mental Status: Normal Affect, - - The patient demonstrates manifestations of mental/intellectual deficiency. Debridement Note Post-Debridement Measurements/Treatment WC - Nurse 2 - General Ulcer CM Notes Start: 06/14/18 08:24 Freq: Status: Active Protocol: Activity Type Activity Date Activity User E-Sign Co-Sign Detail Recorded Client Recorded Date Recorded By Document 06/14/18 09:59 DV [id number] 06/14/18 10:02 DV Document 06/21/18 10:49 DV [id number] 06/21/18 10:51 DV 06/14/18 06/21/18 09:59 10:49 Wound Center Nurse 2 #13 RIGHT LAT. LE -Time 10:00 10:50 -Correct Patient Yes Yes -Correct Side, Site, Position Yes Yes -Correct Procedure Yes -Procedure Performed Yes No -Type of Procedure Debridement -Clinical Debridement Selective -Post Debridement Size (cm) - Length 1.0 -Post Debridement Size (cm) - Width 0.9 -Post Debridement Size (cm) - Depth 0.1 -Total Square Cm 0.90 -Wound/Ulcer Outcome Not Healed Healed- Epithelialized -Ulcer Cleansing Rinsed/ Irrigated with Saline -Foul Odor after Cleansing No -Bioengineered Tissue No -Bleeding Controlled with Pressure -Offloading No -Treatment Response Procedure Tolerated Well #12 L Med Cluster -Time 10:01 10:50 -Correct Patient Yes Yes -Correct Side, Site, Position Yes Yes -Correct Procedure Yes -Procedure Performed Yes No -Type of Procedure Debridement -Clinical Debridement Selective -Post Debridement Size (cm) - Length 6.0 -Post Debridement Size (cm) - Width 0.5 -Post Debridement Size (cm) - Depth 0.1 -Total Square Cm 3.00 -Wound/Ulcer Outcome Not Healed Healed- Epithelialized -Ulcer Cleansing Rinsed/ Irrigated with Saline -Foul Odor after Cleansing No -Bioengineered Tissue No -Bleeding Controlled with Pressure -Offloading No -Treatment Response Procedure Tolerated Well Pain Scale: 0-10 Numeric Is Patient Pain Free? Yes Yes No debridement was completed today Assessment/Plan Active Problems Venous insufficiency of both lower extremities (Chronic) Stasis dermatitis of both legs (Chronic) Ulcer of right lower extremity, limited to breakdown of skin (Chronic) Noncompliance (Chronic) Leg swelling (Chronic) Edema of both legs (Chronic) Ulcer of left lower leg (Chronic) Mental deficiency (Chronic) Assessment: The patient is now completely healed. There are no open wounds or ulcerations in the lower extremities. There is no swelling or edema. Plan: The patient is now healed. Swelling and edema are well controlled in the lower extremities bilaterally. The patient is to be discharged. He will follow-up henceforth on an as-needed basis. He has been encouraged to sleep in a flat position at night. He has been encouraged to elevate his lower extremities as much as possible during daytime hours. Activity has been encouraged. Prolonged, idle sitting has been discouraged. The patient is to maintain optimal weight. The patient is known to possess graduated compression stockings of 20-30 mmHg compression, and he has been encouraged to wear these daily. The patient will follow-up henceforth as needed. Influenza vaccine was not administered today. The patient is not a smoker. His BMI is 32.2, which places him in an obese class I category. Weight loss has been recommended, in collaboration with his primary care physician has been advised.
== END 2018-07-07 23:59 ==
LOC: WC 10:00
PROVIDERS: Family Provider Family Medicine; PCP Family Medicine; Visit Provider Surgery
DX: I87.2 Venous insufficiency (chronic) (peripheral) (principal); Z91.19 Patient's noncompliance with other medical treatment and regimen; M79.89 Other specified soft tissue disorders; F79 Unspecified intellectual disabilities; R60.0 Localized edema; L97.211 Non-pressure chronic ulcer of right calf limited to breakdown of skin; L97.221 Non-pressure chronic ulcer of left calf limited to breakdown of skin
CPT/HCPCS: 29580; 97597; 99212; 99213; G0463

== ENCOUNTER 2019-07-28 15:23 | Emergency (ER) | payer MEDICARE, SELFPAY ==
[2019-07-28 15:24] VITALS: BP 171/97; PULSE 71; RESP 16; TEMP 36.6; O2SAT 96; BMI 34.9
--- NOTE | 2019-07-28 16:28 | ED.DCSUM_ITS ---
- ER Visit Summary Date of Service: 07/28/19 Chief Complaint: Bilateral lower extremity redness History of Present Illness: The patient is a 59 M history of mental retardation. Patient's had a history of cellulitis in the past and hypertension. Brought in by family. The last 1 to 2 weeks he has had redness his lower extremities above the ankles. Not spreading. Has had no fever or chills. Family states that he picks at his skin a lot. He also has wounds to his left forehead and scalp which have been there for quite some time also. He is not been ill. They also state he has had some swelling of his left hand but denies any fall or trauma. He denies any pain to his hand. Physical Examination: Older male no acute distress vital signs are stable afebrile. H EENT exam he has a wound to his left forehead that is oozing mildly but there is no infection. Also a larger wound to his left upper scalp but again neither one is acutely infected. Neck nontender no lymphadenopathy. Lungs clear to auscultation bilaterally. Heart regular rhythm no murmur. Abdomen soft nontender normal bowel sounds no peritoneal signs. Extremities moves all 4. Neurovascular intact. Left hand is mildly swollen. He is a strong radial pulse. Normal cap refill intact sensation. He is unable to completely flex his hand to make a fist due to swelling. There are no lacerations. There is no bony deformity. Normal touch sensation. Forearm and upper arm are unremarkable. He has areas where he is picked his lower legs and broken the skin. And there is areas of cellulitis but no lymphangitic streaking. No purulence. Feet are neurovascular intact. Neurologically is awake and alert. Following commands. Answering questions. Test Results: Hand x-ray 3 views read by myself shows no acute abnormality. No fracture. No dislocation. Emergency Department Course and Treatment: Patient has early mild cellulitis to both lower extremities. The wounds on his forehead and scalp need to be evaluated smash piecer which I discussed with his family. But they do not need anything acutely and they are not acutely infected. Treatment Plan: German exam patient is doing well at 1700. Treated with Keflex 4 times a day for 10 days. Follow-up with a primary care physician. Follow-up with dermatology for the left forehead and left scalp wounds. Disposition: Discharge Impression: Acute bilateral lower extremity cellulitis Forehead and scalp wound secondary to picking of the skin Left hand soft tissue swelling of uncertain etiology This note was generated with [employer] dictation software. It may contain incorrect words, spelling, and punctuation that were not noted in review of the chart prior to signing ED Disposition - Plan for ED Patient: Referrals: Anthony Vang MD [Primary Care Provider] -
[2019-07-28] MEDS: Cephalexin 250 MG Capsule 500 MG PO (16:49)
--- NOTE | 2019-07-28 16:50 | RAD_ITS ---
STUDY: X-RAY - LEFT HAND REASON FOR EXAM: Male, 59 years old. patient has left hand swelling/edema TECHNIQUE: 3 view(s) of the hand. COMPARISON: None. FINDINGS: There is no acute fracture or dislocation. There is diffuse periarticular osteopenia in the metacarpophalangeal and interphalangeal joints without established erosions. Soft tissues are unremarkable without foreign bodies or defects. RAD/Hand Min 3 Views IMPRESSION: Periarticular osteopenia, this can be seen with rheumatoid arthritis. Rheumatology referral is advised. No acute osseous trauma. Electronically Signed: Aubree Howard, at 17:03 EST Tel , Service support ,
--- NOTE | 2019-07-28 17:04 | ED.DEP ---
ED Disposition - Plan for ED Patient: Disposition: Home or Assisted Living Instructions: Cellulitis Prescriptions: Cephalexin [Keflex] 500 mg PO Q6 #40 cap Prescription Printed Referrals: Anthony Vang MD [Primary Care Provider] - 1 Week Additional Instructions: 10 x-ray was normal. Ice and elevate the left hand swelling should improve. Keflex the antibiotic 1 pill 4 times a day for 10 days. Follow-up with your doctor to ensure the cellulitis is resolving. Follow-up with a wireline supervisor for a left forehead and left scalp wound.
== END 2019-07-28 17:24 | disposition home or self-care (01) ==
PROVIDERS: Emergency Provider Emergency Medicine; PCP Family Medicine
DX: L03.115 Cellulitis of right lower limb (principal); L03.116 Cellulitis of left lower limb; M79.89 Other specified soft tissue disorders; S01.00XA Unspecified open wound of scalp, initial encounter; S01.80XA Unspecified open wound of other part of head, initial encounter; I10 Essential (primary) hypertension; X58.XXXA Exposure to other specified factors, initial encounter; Y93.89 Activity, other specified; Y92.89 Other specified places as the place of occurrence of the external cause; Y99.8 Other external cause status
CPT/HCPCS: 73130; 99282

== ENCOUNTER 2019-12-12 17:28 | Emergency (ER) | payer MEDICARE, SELFPAY ==
[2019-12-12 17:29] VITALS: BP 139/74; PULSE 73; RESP 16; TEMP 36.5; O2SAT 99; BMI 35.5
[2019-12-12] MEDS: Smz/Tmp Ds Tablet 1 TABLET PO (18:17)
[2019-12-12] MEDS: Cephalexin 250 MG Capsule 500 MG PO (18:17)
[2019-12-12 18:26] LABS: Absolute Lymphocyte Count 14.18 X10^3/uL (0.83-4.51); Absolute Neutrophil Count 5.7 X10^3/uL (2.0-7.7); Basophil# 0.06 X10^3/uL; Basophil% 0.3 % (0-1); Eosinophil# 0.34 X10^3/uL; Eosinophils% 1.6 % (0-5); Hematocrit 41.9 % (40-54); Hemoglobin 13.6 g/dL (13.0-16.5); Lymphocyte # 14.18 X10^3/ul (4.0); Mean Corp Hgb Conc 32.5 g/dL (32-36); Mean Corpuscular Hgb 30.8 pg (27.0-32.0); Mean Platelet Vol. 12.4 fl (6.2-12.0); Monocyte% 3.8 % (0-10); NRBC Flagged by Analyzer 0 % (0-5); Neutrophil # 5.73 X10^3/uL (2.7-7.7); Neutrophil % 27.1 % (47-70); POSITIVE DIFFERENTIAL YES; POSITIVE MORPHOLOGY YES; Platelet Count 227 K/mm3 (150-450); RBC Distribution Width CV 14.6 % (11.6-14.6); RBC Distribution Width SD 50.2 fl (35.1-43.9); Red Blood Count 4.41 M/mm3 (4.6-6.2); White Blood Count 21.2 K/mm3 (4.4-11.0)
[2019-12-12 18:32] LABS: Differential Indicated SCAN CRITERIA MET
[2019-12-12 18:40] LABS: Anion Gap 4 (5-15); BUN 13 mg/dL (7-18); Calcium,Total 8.9 mg/dL (8.5-10.1); Chloride 106 mmol/L (98-107); Creatinine, Serum 0.87 mg/dL (0.70-1.30); EST Glomerular Filtration Rate 95 mL/min (>60); Est Glom Filt Rate - Afr Amer 115 mL/min (>60); Estimated Creatinine Clearance 87.36 ml/min; Glucose 89 mg/dL (74-106); Potassium 4.3 mmol/L (3.5-5.1); Sodium Level 140 mmol/L (136-145)
--- NOTE | 2019-12-12 18:53 | ED.VISSUMM ---
- ER Visit Summary Date of Service: 12/12/19 Chief Complaint: Sent in by [facility] for elevated white count and suspected lower extremity cellulitis History of Present Illness: The patient is a 59 M known history of scalp melanoma, hypertension and recurrent cellulitis. He states he is feeling fine he denies any complaints. Today went to the [facility] had preop labs done which showed an elevated white count today the family is unsure exactly what the number was. Reported up on his my chart for the [facility] and the CBC was not on that so I do not know the actual number. There are other labs that run there. He denies having any fever chills says he feels fine. He has chronic cellulitis in his lower extremities he said it looks actually better than what it normally does. Physical Examination: Well-appearing older male accompanied by his brother vital signs stable afebrile. H EENT exam unremarkable. Moist weeks membranes. Neck nontender no lymphadenopathy. Lungs clear to auscultation bilaterally. Heart regular rhythm no murmur. Abdomen soft nontender. Normal bowel sounds no peritoneal signs. Extremities moves all 4. Neurovascular intact. He has cellulitis of both lower extremities between the ankle and knees. Not involving either the ankle or knees. Slightly worse on the left it is red and warm to the touch. Feet are neurovascular intact. Neurologically is awake and alert. Test Results: Screening labs obtained. CBC shows a white count of 21,000. Hemoglobin 13. No bands. Chemistries unremarkable normal creatinine and gap. Glucose of 89. Emergency Department Course and Treatment: Patient has cellulitis on his legs with no other symptoms. He is afebrile he does not look septic or toxic. He was given both Bactrim and Keflex p.o. here. On repeat exam at 1851 he feels fine without complaints. I discussed with both he and his brother admission versus outpatient treatment they prefer to be treated at home. He will be started on Bactrim and Keflex for 10 days. And follow-up with his [facility] doctors. Treatment Plan: Both Keflex and Bactrim antibiotic. He has done outpatient oral antibiotic therapy before. Return if worse. Follow-up with his doctors. Disposition: Discharge Impression: Acute on chronic lower extremity cellulitis Leukocytosis History of scalp melanoma pending surgical removal This note was generated with [employer] software. It may contain incorrect words, spelling, and punctuation that were not noted in review of the chart prior to signing ED Disposition - Plan for ED Patient: Referrals: Anthony Vang MD [Primary Care Provider] -
--- NOTE | 2019-12-12 18:56 | ED.DEP ---
ED Disposition - Plan for ED Patient: Disposition: Home or Assisted Living Instructions: Cellulitis Prescriptions: Smz/Tmp Ds [Bactrim Ds] 1 tab PO BID #20 tab Prescription Printed Cephalexin [Keflex] 500 mg PO Q6 #40 cap Prescription Printed Referrals: Anthony Vang MD [Primary Care Provider] - 3-5 Days Additional Instructions: Return if fever, feeling worse or redness to your legs is looking a lot worse and spreading. Elevate your legs to decrease the swelling. Take both the Bactrim and Keflex as prescribed. The Bactrim will be twice a day and the Keflex 4 times a day. For 10 days each. Follow-up with your doctor to ensure this is improving.
[2019-12-12 19:31] LABS: Differential Comment SCANNED; Smudge Cells RARE
== END 2019-12-12 19:06 | disposition home or self-care (01) ==
PROVIDERS: Emergency Provider Emergency Medicine; PCP Family Medicine
DX: L03.115 Cellulitis of right lower limb (principal); L03.116 Cellulitis of left lower limb; C43.4 Malignant melanoma of scalp and neck
CPT/HCPCS: 80048; 85025; 99285; A4216

== ENCOUNTER 2020-02-10 20:02 | Inpatient (IN) | payer MEDICARE, SELFPAY ==
[2020-02-10 20:03] VITALS: BP 137/70; PULSE 105; RESP 18; TEMP 36.6; O2SAT 100; BMI 32.8
[2020-02-10 20:05] VITALS: BP 137/70; PULSE 102; PULSE 103; RESP 16; TEMP 36.6; O2SAT 99
--- NOTE | 2020-02-10 20:19 | ED.VIS.GEN ---
History of Present Illness Chief Complaint: Wound Informant: Family Limited by: - - Cognitive impairment Onset: Days Context: Sudden Onset Timing: Continuous Quality: Red skin right lower extremity greater than left lower extremity Location: Previously documented Current Severity: Moderate Maximum Severity: Moderate Worsened by: Patient picking at his skin Relieved by: Nothing Associated Symptoms: Serous drainage Narrative: Patient is a 60-year-old male who is cognitively impaired with multiple medical problems who presents because [id number] is concerned he has a skin infection due to him picking at his skin. He has history of lymphedema with venous stasis dermatitis and ulcers. History is limited because of cognitive impairment. There is been no complaint of fever. She has not noticed any chills. He denies everything. He lives with his 94-year-old father. Prior similar symptoms: Yes Recent Illness/Hospitalization: Yes - Resection stage III melanoma scalp [facility] - Past Medical History (1) Edema of both legs Status: Chronic (2) HTN (hypertension) Status: Chronic (3) Mental deficiency Status: Chronic (4) Stasis dermatitis of both legs Status: Chronic Past Medical History - Allergies and Home Meds Allergies/Adverse Reactions: Allergies No Known Allergies Allergy (Verified 02/10/20 20:03) Primary Care Physician: Anthony Vang MD [Primary Care Provider] - Prior records reviewed: Yes Surgical History: tonsillectomy Lives: With Family Smoking Status: Never smoker Alcohol: None Drugs: None - Family History Paternal Family History: Reports: - - No heart disease. Patient's father is alive, aged 90, and healthy. Maternal Family History: Reports: Diabetes, - - History of cardiac disease Review of Systems ROS: Unable to Obtain - Limited due to cognitive impairment. Person with him, [id number], states he lives with his father and not his brother, her . General: Denies: Chills, Fever ENT: Denies: Bilateral ear pain, Rhinorrhea, Sore throat Cardiovascular: Denies: Chest pain Respiratory: Denies: Dyspnea, Cough, Orthopnea Gastrointestinal: Denies: Nausea, Vomiting, Diarrhea Genitourinary: Denies: Dysuria, Hematuria, Frequency Musculoskeletal: Reports: Swelling. Denies: Extremity Pain Skin: Reports: Rash, Wounds Neurological: Denies: Weakness, Parasthesia Hematologic: Denies: Easy bruising, Easy bleeding Physical Exam Vital Signs/Narrative: Vital Signs Temp Pulse Resp BP Pulse Ox 02/10/20 20:05 97.8 F 102 H 16 137/70 H 99 02/10/20 20:03 97.8 F 105 H 18 137/70 H 100 Inital Vital Signs reviewed: Yes General: Well nourished, Well developed, Obese, Unkempt, No Acute Distress Head: Normocephalic, Atraumatic, - - Patient has healing wound due to resection of melanoma scalp. Eyes: Perrl, EOMI. Negative for: Pale conjunctiva, Scleral icterus ENT: Moist mucous membranes, No rhinorrhea Neck: Supple, Nontender, No lymphadenopathy, No JVD Cardiovascular: Regular rate, Regular rhythm, No murmurs, Normal S1, Normal S2 Respiratory: No distress, CTA bilaterally, Chest nontender Abdomen: Soft, Nontender, Nondistended, Normal bowel sounds Rectal: Deferred Back: Nontender, Normal Inspection Extremities: Nontender, Edema - Pitting edema with breakdown of skin from patient picking and venous stasis ulcers. The anterior right leg is warm with erythema slight induration. There is no popliteal or inguinal lymphadenopathy. There is no lymphangitis. There is slight redness/discoloration of the the skin left leg. Skin: Normal color, Rash, - - As described in the extremity section. Neurological: Alert, Cranial nerves II-XII grossly intact, Normal Strength, Normal Sensation. Negative for: Oriented x3 Psychological: Normal affect Diagnostic/Tx/Re-eval Laboratory Results 02/10/20 02/10/20 02/10/20 20:37 20:37 20:37 WBC 22.4 H RBC 3.87 L Hgb 12.2 L Hct 36.1 L MCV 93.3 MCH 31.5 MCHC 33.8 RDW Std Deviation 46.0 H RDW Coeff of Heath 13.5 Plt Count 300 MPV 12.0 Immature Gran % (Auto) 0.400 Neut % (Auto) 30.9 L Lymph % (Auto) 64.0 H Assumption % (Auto) 4.0 Eos % (Auto) 0.5 Baso % (Auto) 0.2 Absolute Neuts (auto) 6.9 Absolute Lymphs (auto) 14.35 H Nucleated RBC % 0 Sodium 139 Potassium 4.0 Chloride 106 Carbon Dioxide 28.0 Anion Gap 5 BUN 13 Creatinine 0.85 Estim Creat Clear Calc 91.26 Est GFR (MDRD) Af Amer 118 Est GFR (MDRD) Non-Af 97 BUN/Creatinine Ratio 15.3 Glucose 147 H Lactic Acid 1.7 Calcium 8.3 L Total Bilirubin 0.30 AST 26 ALT 25 Alkaline Phosphatase 89 Total Protein 7.0 Albumin 2.9 L Globulin 4.1 Albumin/Globulin Ratio 0.7 L Review of prior records indicate patient had an elevated white count December 2019. His elevated white count was due to cellulitis of his lower extremity. Since there is a predominance of lymphocytes spoke with [id number] regarding prior history of leukemia. She states there is no history of leukemia. Patient does have 2 sirs criteria and source. Sepsis due to cellulitis. - Medical Decision Making Sent with cellulitis due to picking of his skin and venous stasis ulcers right leg. There is venous stasis ulcers that not infected on the left side. Work-up was undertaken determined patient should has cellulitis, sepsis, severe sepsis etc. Patient's white count is 22.4 thousand. Blood cultures were added and he was treated with 3.0 g of Unasyn and 2 g of vancomycin. ED Disposition - Plan for ED Patient: Disposition: Home or Assisted Living Diagnosis: Cellulitis of lower extremity, Sepsis Referrals: Anthony Vang MD [Primary Care Provider] -
[2020-02-10 20:50] LABS: Absolute Lymphocyte Count 14.35 X10^3/uL (0.83-4.51); Absolute Neutrophil Count 6.9 X10^3/uL (2.0-7.7); Basophil# 0.05 X10^3/uL; Basophil% 0.2 % (0-1); Eosinophil# 0.11 X10^3/uL; Eosinophils% 0.5 % (0-5); Hematocrit 36.1 % (40-54); Hemoglobin 12.2 g/dL (13.0-16.5); Lymphocyte # 14.35 X10^3/ul (4.0); Mean Corp Hgb Conc 33.8 g/dL (32-36); Mean Corpuscular Hgb 31.5 pg (27.0-32.0); Mean Corpuscular Volume 93.3 fL (80-94); Monocyte# 0.89 X10^3/uL; NRBC Flagged by Analyzer 0 % (0-5); Neutrophil # 6.93 X10^3/uL (2.7-7.7); Neutrophil % 30.9 % (47-70); POSITIVE DIFFERENTIAL YES; POSITIVE MORPHOLOGY YES; Platelet Count 300 K/mm3 (150-450); RBC Distribution Width CV 13.5 % (11.6-14.6); Red Blood Count 3.87 M/mm3 (4.6-6.2); White Blood Count 22.4 K/mm3 (4.4-11.0)
[2020-02-10 20:51] LABS: Differential Indicated SCAN CRITERIA MET
[2020-02-10 21:11] LABS: ALB/GLOB Ratio 0.7 RATIO (0.9-2.4); AST(SGOT) 26 U/L (15-37); Alanine Aminotransfer ALT/SGPT 25 U/L (16-61); Albumin, Serum 2.9 g/dL (3.2-5.0); Alkaline Phosphatase 89 U/L (45-117); Anion Gap 5 (5-15); BUN 13 mg/dL (7-18); BUN/Creat Ratio 15.3 RATIO (10-20); Calcium,Total 8.3 mg/dL (8.5-10.1); Chloride 106 mmol/L (98-107); Creatinine, Serum 0.85 mg/dL (0.70-1.30); EST Glomerular Filtration Rate 97 mL/min (>60); Est Glom Filt Rate - Afr Amer 118 mL/min (>60); Estimated Creatinine Clearance 91.26 ml/min; Globulin 4.1 g/dL (2.2-4.2); Glucose 147 mg/dL (74-106); Lactic Acid 1.7 mmol/L (0.4-1.9); Sodium Level 139 mmol/L (136-145)
[2020-02-10 21:13] VITALS: BP 116/69; PULSE 99; RESP 16; TEMP 37.1; O2SAT 99
--- NOTE | 2020-02-10 21:28 | PCM.HP.STD ---
Problem List (1) Ulcer of right lower extremity with fat layer exposed Status: Chronic (2) Venous insufficiency of both lower extremities Status: Chronic (3) Ulcer of left lower extremity with fat layer exposed Status: Chronic (4) Stasis dermatitis of both legs Status: Chronic (5) Ulcer of right lower extremity, limited to breakdown of skin Status: Chronic (6) Cellulitis of lower extremity Status: Acute (7) Noncompliance Status: Chronic (8) Leg swelling Status: Chronic (9) Edema of both legs Status: Chronic (10) Cellulitis of both lower extremities Status: Chronic (11) Ulcer of left lower leg Status: Chronic Qualifiers: (12) Mental deficiency Status: Chronic (13) Constipation Status: Inactive (14) Abdominal pain Status: Inactive (15) Sepsis Status: Acute Qualifiers: Sepsis type: sepsis due to unspecified organism Qualified Code(s): A41.9 - Sepsis, unspecified organism (16) HTN (hypertension) Status: Chronic Qualifiers: (17) Cellulitis Status: Acute History of Present Illness Date of Admission: 02/10/20 Chief Complaint: bilateral leg redness The patient is a 60 year old M with a significant history of mental retardation; and bilateral venous stasis presenting with erythema of bilateral legs. Patient's has mental retardation and when his legs are not wrapped he picks at it. So his family keeps it wrapped. His family removed his leg dressing to wash and patient reportedly picked his legs and developed wounds and erythema of bilateral legs. Further he has increased swelling of bilateral leg and feet as well pain in his bilateral legs. White count and heart rate was elevated at the ED. Recently, patient had melanoma resection of his head and there is a dressing on his forehead that is changed daily. Past Medical History Past Medical History (Chronic Problems): Chronic Problems Ulcer of right lower extremity with fat layer exposed (Chronic) Venous insufficiency of both lower extremities (Chronic) Ulcer of left lower extremity with fat layer exposed (Chronic) Stasis dermatitis of both legs (Chronic) Ulcer of right lower extremity, limited to breakdown of skin (Chronic) Noncompliance (Chronic) Leg swelling (Chronic) Edema of both legs (Chronic) Cellulitis of both lower extremities (Chronic) Ulcer of left lower leg (Chronic) Mental deficiency (Chronic) HTN (hypertension) (Chronic) Allergies No Known Allergies Allergy (Verified 02/10/20 20:03) Home Medications: Ambulatory Orders Medication Instructions Recorded Lisinopril [Zestril] 10 mg PO DAILY 12/15/16 Surgical History: tonsillectomy Psychiatric History: - - MRDD Lives: With Family Smoking Status: Never smoker Alcohol: None Drugs: None - *Family History Paternal History Items: Cancer, - - No heart disease. Patient's father is alive, aged 90, and healthy. Maternal History Items: Heart Disease, Stroke, - - History of cardiac disease Review of Systems Constitutional: Denies: Chills, Fever, Weight Change HEENT: Denies: Head Aches, Sinus Congestion, Sinus Drainage Cardiovascular: Denies: Chest Pain, Palpitations Respiratory: Denies: Cough, Shortness of breath at rest, Sputum production Gastrointestinal: Denies: Abdominal Pain, Nausea, Vomiting Genitourinary: Denies: Dysuria Musculoskeletal: Denies: Joint Pain, Joint Tenderness Skin: Reports: Skin Changes, Wounds. Denies: Rash Neurological: Denies: Numbness, Tingling, Focal weakness Psychiatric: Denies: Anxiety, Depression, Homicidal Ideations, Suicidal Ideations Hematologic/ Lymphatic: Denies: Easy Bruising, Easy Bleeding VTE Information - Inpt Only VTE Present on Admission: No VTE Mechan Device Prophylaxis: None VTE Pharm Prophylaxis ordered?: Yes Patient Problems: Active and Suspected Problems Cellulitis of lower extremity (Acute) Cellulitis (Acute) Sepsis (Acute) - Physical Exam Vitals/I&O's: Vital Signs Temp Pulse Resp BP Pulse Ox 98.7 F 99 16 116/69 99 02/10/20 21:13 02/10/20 21:13 02/10/20 21:13 02/10/20 21:13 02/10/20 21:13 Oxygen Delivery Method Room Air Weight: 101 kg Body Mass Index (BMI) 32.8 General: Alert, Oriented x3, Cooperative HEENT: PERRLA, EOMI, Normocephalic, - - surgical wound on forehead; soft tissue mass of parietal occipital area Neck: Supple, No JVD, Negative Carotid Bruits, Trachea Midline Lungs: Clear to auscultation, Normal air movement, No rhonchi, No wheeze, No rales Cardiovascular: Regular rate, Regular Rhythm, Normal S1, Normal S2, No murmurs Abdomen: Bowel Sounds Present, Soft, Non Tender Extremities: Capillary Refill Less than 3 Seconds, Edema - bilateral legs Skin: - - Leonardo leg ulcers; erythema of leonardo legs; wound across forehead Musculoskeletal: No Tenderness to Palpation of Joints or Extremities Neurological: Cranial nerves II-XII grossly intact, - - Stuttering Psych/Mental Status: Normal Affect, Appropriate Laboratory Results 02/10/20 20:37: WBC 22.4 H, RBC 3.87 L, Hgb 12.2 L, Hct 36.1 L, MCV 93.3, MCH 31.5, MCHC 33.8, RDW Std Deviation 46.0 H, RDW Coeff of Heath 13.5, Plt Count 300, MPV 12.0, Immature Gran % (Auto) 0.400, Neut % (Auto) 30.9 L, Lymph % (Auto) 64.0 H, Wilkinson % (Auto) 4.0, Eos % (Auto) 0.5, Baso % (Auto) 0.2, Absolute Neuts (auto) 6.9, Absolute Lymphs (auto) 14.35 H, Nucleated RBC % 0 02/10/20 20:37: Sodium 139, Potassium 4.0, Chloride 106, Carbon Dioxide 28.0, Anion Gap 5, BUN 13, Creatinine 0.85, Estim Creat Clear Calc 91.26, Est GFR (MDRD) Af Amer 118, Est GFR (MDRD) Non-Af 97, BUN/Creatinine Ratio 15.3, Glucose 147 H, Calcium 8.3 L, Total Bilirubin 0.30, AST 26, ALT 25, Alkaline Phosphatase 89, Total Protein 7.0, Albumin 2.9 L, Globulin 4.1, Albumin/Globulin Ratio 0.7 L 02/10/20 20:37: Lactic Acid 1.7 Current Medications Ampicillin Sodium/Sulbactam (Sodium 3 gm/ Sodium Chloride) 112 mls @ 150 mls/hr IV X1 ONE Stop: 02/10/20 21:40 Last Admin: 02/10/20 21:15 Dose: 150 mls/hr Documented by: Vancomycin HCl 2,000 mg/ (Sodium Chloride) 540 mls @ 250 mls/hr IV X1 ONE Stop: 02/10/20 23:14 Sodium Chloride () 250 mls @ 15 mls/hr IV .[id number] PRN PRN Reason: Saline Flush Sodium Chloride () 250 mls @ 15 mls/hr IV .[id number] PRN PRN Reason: Additional IVPB Infusion Assessment/Plan All Active Problems Cellulitis of lower extremity (Acute) Cellulitis (Acute) Ulcer of right calf (Resolved) Left leg cellulitis (Resolved) Sepsis (Acute) The patient is a 60 year old M with a significant history of mental retardation; and bilateral venous stasis presenting with erythema of bilateral legs; and who meets SIRS criteria. Sepsis secondary to bilateral legs cellulitis White count of 22,400 with lymphocytic predominance. Review of old records also shows periods of lymphocytosis. Patient with tachycardia with heart rate in 100s Received vancomycin and Unasyn at the ED; and continued Lactic is normal Trend CBC Blood culture x 2 was ordered at the ED; trend. Venous stasis dermatitis Kerlix roll to bilateral legs HTN With elevated blood pressure Lisinopril continued Trend BP Melanoma s/p resection Wound dressing Wound care consult DVT prophylaxis Subcu lovenox ordered Inpatient E&M: 99257 Init Hosp L3
[2020-02-10 21:59] LABS: Differential Comment SCANNED; Platelet Estimate ADEQUATE (ADEQ); Red Cell Morphology NORM C+C NORMAL (NORM C&C); Smudge Cells 1+
[2020-02-10 22:18] VITALS: BP 123/86; PULSE 103; PULSE 108; RESP 18; TEMP 36.7; O2SAT 98; O2SAT 99
--- NOTE | 2020-02-10 22:25 | ED.RN ---
Per family patients dressing on his head is to be changed daily. cleansed, dried, ointment and covered
[2020-02-10 22:40] VITALS: BMI 32.5
[2020-02-10 22:45] VITALS: BP 103/85; PULSE 103; RESP 18; TEMP 36.7; O2SAT 99
--- NOTE | 2020-02-10 22:48 | PCM.RX.CS ---
Consult Pharmacy has been consulted to manage selected antiobiotic: Vancomycin Type of Consult: New start Suspected Infection: Skin/Soft tissue Prior Doses of Antibiotics Received/Current Regimen: Medications Vancomycin HCl 1,500 mg/ (Sodium Chloride) 530 mls @ 250 mls/hr IV Q12H [place] Vancomycin HCl 2,000 mg/ (Sodium Chloride) 540 mls @ 250 mls/hr IV X1 ONE Stop: 02/10/20 23:14 Last Admin: 02/10/20 22:14 Dose: 250 mls/hr Labs: Sodium 139 mmol/L (136-145) 02/10/20 20:37 Potassium 4.0 mmol/L (3.5-5.1) 02/10/20 20:37 Chloride 106 mmol/L (98-107) 02/10/20 20:37 Carbon Dioxide 28.0 mmol/L (21.0-32.0) 02/10/20 20:37 Anion Gap 5 (5-15) 02/10/20 20:37 BUN 13 mg/dL (7-18) 02/10/20 20:37 Creatinine 0.85 mg/dL (0.70-1.30) 02/10/20 20:37 Est GFR (MDRD) Af Amer 118 mL/min (>60) 02/10/20 20:37 Est GFR (MDRD) Non-Af 97 mL/min (>60) 02/10/20 20:37 BUN/Creatinine Ratio 15.3 RATIO (10-20) 02/10/20 20:37 Glucose 147 mg/dL (74-106) H 02/10/20 20:37 Weight used for dosin.2 kg Estimated Creatinine Clearance: 91 Goal Trough: 10-15 mcg/mL Pharmacy Plan for Drug Dosing: Pharmacy Service will continue to monitor and adjust dosing as required. Follow-Up Labs: Trough Vancomycin Labs to be done on [date and time ordered]: 02/12/20 @3418
[2020-02-10 22:58] VITALS: BMI 32.6
[2020-02-10 23:00] VITALS: PULSE 118
[2020-02-11] VITALS (9 sets, daily range): BP systolic 100–118; BP diastolic 51–66; PULSE 82–97; RESP 16–18; TEMP 36.6–38; O2SAT 96–98
[2020-02-11] MEDS: Lisinopril 10 MG Tablet PO (08:53)
--- NOTE | 2020-02-11 09:36 | NURSING ---
Pt refused lovenox and morning labs. Dr. Grant verbally made aware face to face.
--- NOTE | 2020-02-11 09:38 | RAD_ITS ---
STUDY: X-RAY CHEST REASON FOR EXAM: Male, 60 years old. Low grade fever, sepsis. TECHNIQUE: Single AP portable view of the chest. COMPARISON: 06/20/2017 FINDINGS: The lungs are clear and expanded. There is no demonstrated pleural abnormality. Normal size heart. Normal mediastinum and shellie. Normal visualized pulmonary arteries. Normal visualized aortic arch and descending thoracic aorta. Normal visualized thoracic spine. Normal visualized ribs, clavicles, and shoulders. There is no demonstrated abnormality of the visualized soft tissue structures of the upper abdomen. RAD/Chest 1 View (Portable) IMPRESSION: Normal x-ray examination of the chest. Electronically Signed: Florentin Morales MD at 10:36 EDT Tel , Service support ,
--- NOTE | 2020-02-11 11:37 | PCM.PN.HOSP ---
<Antoine Morgan - Last Filed: 02/11/20 11:37> Patient Problems: Active and Suspected Problems Cellulitis of lower extremity (Acute) Reason for Visit: BL LE cellulitis Subjective: Pt denies LE pain, fevers, chills, SOB, cough, nausea, vomiting. His only complaint is that he wants to get up and ambulate more. He is MRDD and his hx is unreliable, however he is sitting upright in the chair at bedside in no acute distress. Vitals/I&O's: Vital Signs Temp Pulse Resp BP Pulse Ox 97.8 F 88 16 118/59 L 98 02/11/20 09:15 02/11/20 09:15 02/11/20 09:15 02/11/20 09:15 02/11/20 09:15 Oxygen Delivery Method Room Air Weight: 220 lb 14.451 oz Body Mass Index (BMI) 32.5 Intake and Output for Last 24 Hours 02/09/20 02/10/20 02/11/20 23:59 23:59 23:59 Intake Total 112 / 112 652 / 652 Balance 112 / 112 652 / 652 General: Alert, Oriented x3, Cooperative HEENT: Atraumatic, PERRLA, EOMI, Normocephalic Neck: Supple, No JVD, Negative Carotid Bruits Lungs: Clear to auscultation, Normal air movement Cardiovascular: Regular rate, No murmurs Abdomen: Bowel Sounds Present, Soft, Non Tender Extremities: No edema, Capillary Refill Less than 3 Seconds Skin: - - BL LE erythema, warmth, open wounds, sloughing. Musculoskeletal: No Tenderness to Palpation of Joints or Extremities Neurological: Cranial nerves II-XII grossly intact Psych/Mental Status: Normal Affect, Appropriate, Alert and oriented to time, place, person, mood and affect Laboratory Results 02/10/20 20:37: WBC 22.4 H, RBC 3.87 L, Hgb 12.2 L, Hct 36.1 L, MCV 93.3, MCH 31.5, MCHC 33.8, RDW Std Deviation 46.0 H, RDW Coeff of Heath 13.5, Plt Count 300, MPV 12.0, Immature Gran % (Auto) 0.400, Neut % (Auto) 30.9 L, Lymph % (Auto) 64.0 H, [place] % (Auto) 4.0, Eos % (Auto) 0.5, Baso % (Auto) 0.2, Absolute Neuts (auto) 6.9, Absolute Lymphs (auto) 14.35 H, Nucleated RBC % 0, Differential Comment SCANNED, Diff Path Review May foll, Smudge Cells 1+ H, Platelet Estimate ADEQUATE, RBC Morphology NORM C+C 02/10/20 20:37: Sodium 139, Potassium 4.0, Chloride 106, Carbon Dioxide 28.0, Anion Gap 5, BUN 13, Creatinine 0.85, Estim Creat Clear Calc 91.26, Est GFR (MDRD) Af Amer 118, Est GFR (MDRD) Non-Af 97, BUN/Creatinine Ratio 15.3, Glucose 147 H, Calcium 8.3 L, Total Bilirubin 0.30, AST 26, ALT 25, Alkaline Phosphatase 89, Total Protein 7.0, Albumin 2.9 L, Globulin 4.1, Albumin/Globulin Ratio 0.7 L 02/10/20 20:37: Lactic Acid 1.7 02/11/20 11:00: S.aureus Protein A PCR Pending, MRSA (PCR) Pending Current Medications Acetaminophen (Tylenol) 650 mg PO Q6H PRN PRN PRN Reason: Pain Score 1-10/Temp > 100.7 F Enoxaparin Sodium (Lovenox) 40 mg SC DAILY [facility] Last Admin: 02/11/20 09:36 Dose: Not Given Documented by: Ampicillin Sodium/Sulbactam (Sodium 3 gm/ Sodium Chloride) 112 mls @ 150 mls/hr IV Q6 [facility] Last Infusion: 02/11/20 05:53 Dose: Infused Documented by: Vancomycin IV Pharmacy to Dose (1 ea/ Sodium Chloride) 500 mls @ 250 mls/hr IV PRN PRN; Protocol PRN Reason: Rx to Dose Sodium Chloride () 250 mls @ 15 mls/hr IV .[id number] PRN PRN Reason: Saline Flush Sodium Chloride () 250 mls @ 15 mls/hr IV .[id number] PRN PRN Reason: Additional IVPB Infusion Vancomycin HCl 1,500 mg/ (Sodium Chloride) 530 mls @ 250 mls/hr IV Q12H [facility] Last Admin: 02/11/20 11:25 Dose: 250 mls/hr Documented by: Lisinopril (Zestril) 10 mg PO DAILY [facility] Last Admin: 02/11/20 08:53 Dose: 10 mg Documented by: Melatonin (Melatonin) 3 mg PO QHS PRN PRN PRN Reason: INSOMNIA Nutritional Formula (Lactose Free) (Ensure Enlive) 120 ml PO 4X/DAY [facility] Last Admin: 02/11/20 09:02 Dose: 120 ml Documented by: Ondansetron HCl (Zofran) 4 mg IV Q8H PRN PRN PRN Reason: NAUSEA/VOMITING Senna/Docusate Sodium (Senokot-S, Kathleen-Colace) 2 tablet PO BID PRN PRN PRN Reason: Constipation Sodium Chloride () 10 - 40 ml IV UD PRN PRN Reason: SALINE FLUSH STROKE Vital Signs/Narrative: Vital Signs Temp Pulse Resp BP Pulse Ox 02/11/20 09:15 97.8 F 88 16 118/59 L 98 02/11/20 07:50 96 Medical Necessity - Tobacco Use Smoking Status: Never smoker Assessment/Plan All Active Problems Cellulitis of lower extremity (Acute) 1. 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 Continue vanc and amp. Check blood and wound cx. UA pending. Prior wound cultures with multi drug resistant Staph epi and Staph aureus. C/s wallpaper cleaner tomorrow. [place] 2. MRDD - complicating compliance a worsening progosis for #1. 3. HTN - stable 4. Hyperglycemia - check a1c. DVT ppx: lovenox This patient was seen by Antoine Morgan PA-C under the supervision of Dr. Grant <Mari Grant E - Last Filed: 02/11/20 13:37> Vitals/I&O's: Vital Signs Temp Pulse Resp BP Pulse Ox 97.8 F 88 16 118/59 L 98 02/11/20 09:15 02/11/20 09:15 02/11/20 09:15 02/11/20 09:15 02/11/20 09:15 Oxygen Delivery Method Room Air Weight: 220 lb 14.451 oz Body Mass Index (BMI) 32.5 Intake and Output for Last 24 Hours 09/09/2402/10/20 02/11/20 23:59 23:59 23:59 Intake Total 112 / 112 652 / 652 Balance 112 / 112 652 / 652 Laboratory Results 02/10/20 20:37: WBC 22.4 H, RBC 3.87 L, Hgb 12.2 L, Hct 36.1 L, MCV 93.3, MCH 31.5, MCHC 33.8, RDW Std Deviation 46.0 H, RDW Coeff of Heath 13.5, Plt Count 300, MPV 12.0, Immature Gran % (Auto) 0.400, Neut % (Auto) 30.9 L, Lymph % (Auto) 64.0 H, [place] % (Auto) 4.0, Eos % (Auto) 0.5, Baso % (Auto) 0.2, Absolute Neuts (auto) 6.9, Absolute Lymphs (auto) 14.35 H, Nucleated RBC % 0, Differential Comment SCANNED, Diff Path Review May foll, Smudge Cells 1+ H, Platelet Estimate ADEQUATE, RBC Morphology NORM C+C 02/10/20 20:37: Sodium 139, Potassium 4.0, Chloride 106, Carbon Dioxide 28.0, Anion Gap 5, BUN 13, Creatinine 0.85, Estim Creat Clear Calc 91.26, Est GFR (MDRD) Af Amer 118, Est GFR (MDRD) Non-Af 97, BUN/Creatinine Ratio 15.3, Glucose 147 H, Calcium 8.3 L, Total Bilirubin 0.30, AST 26, ALT 25, Alkaline Phosphatase 89, Total Protein 7.0, Albumin 2.9 L, Globulin 4.1, Albumin/Globulin Ratio 0.7 L 02/10/20 20:37: Lactic Acid 1.7 02/11/20 11:00: S.aureus Protein A PCR POSITIVE H, MRSA (PCR) Negative Current Medications Acetaminophen (Tylenol) 650 mg PO Q6H PRN PRN PRN Reason: Pain Score 1-10/Temp > 100.7 F Enoxaparin Sodium (Lovenox) 40 mg SC DAILY [facility] Last Admin: 02/11/20 09:36 Dose: Not Given Documented by: Ampicillin Sodium/Sulbactam (Sodium 3 gm/ Sodium Chloride) 112 mls @ 150 mls/hr IV Q6 [facility] Last Infusion: 09/06/20 05:53 Dose: Infused Documented by: Vancomycin IV Pharmacy to Dose (1 ea/ Sodium Chloride) 500 mls @ 250 mls/hr IV PRN PRN; Protocol PRN Reason: Rx to Dose Sodium Chloride () 250 mls @ 15 mls/hr IV .[id number] PRN PRN Reason: Saline Flush Sodium Chloride () 250 mls @ 15 mls/hr IV .[id number] PRN PRN Reason: Additional IVPB Infusion Vancomycin HCl 1,500 mg/ (Sodium Chloride) 530 mls @ 250 mls/hr IV Q12H [facility] Last Admin: 02/11/20 11:25 Dose: 250 mls/hr Documented by: Lisinopril (Zestril) 10 mg PO DAILY [facility] Last Admin: 02/11/20 08:53 Dose: 10 mg Documented by: Melatonin (Melatonin) 3 mg PO QHS PRN PRN PRN Reason: INSOMNIA Nutritional Formula (Lactose Free) (Ensure Enlive) 120 ml PO 4X/DAY [facility] Last Admin: 02/11/20 09:02 Dose: 120 ml Documented by: Ondansetron HCl (Zofran) 4 mg IV Q8H PRN PRN PRN Reason: NAUSEA/VOMITING Senna/Docusate Sodium (Senokot-S, Kathleen-Colace) 2 tablet PO BID PRN PRN PRN Reason: Constipation Sodium Chloride () 10 - 40 ml IV UD PRN PRN Reason: SALINE FLUSH Assessment/Plan Hospitalist note: I am seeing this patient in conjunction with Antoine Morgan. I independently seen and examined the patient. Progress note above and laboratory data reviewed and I concur with above treatment plan. This morning, he denied leg pain. Denied fever chills. He refused blood work this morning because he is afraid of big needles. He had a spike of low-grade fever this morning, other vital signs are stable. - Physical Exam General: Alert, Oriented x3, Cooperative, No apparent distress. HEENT: Atraumatic, PERRLA, EOMI. Neck: Supple, No JVD, Negative Carotid Bruits, Trachea Midline, Thyroid Normal. Lungs: Diminished breath sounds bilateral, otherwise clear no rhonchi, No wheeze, No rales. Cardiovascular: Regular rate, Regular Rhythm, Normal S1, Normal S2, PMI Normal. Abdomen: Bowel Sounds Present, Soft, Non Tender, Non-Distended, No Hepato-splenomegaly. Extremities: No clubbing, No cyanosis. Bilateral lower extremity swelling, erythema extending from just below both knees down to the both feet, hot to palpation, warmth multiple small nonhealing wounds, sloughing with granulation tissue, minimal serous drainage. Skin: No rashes, No breakdown Neurological: Cranial nerves are intact, neuro grossly intact Vital Signs are stable. Assessment and plan: #1 acute bilateral lower extremity cellulitis/sepsis: In the setting of chronic bilateral leg edema and recurrent infections and cellulitis. Patient is on IV Unasyn and vancomycin. He had a spike of low-grade fever this morning, other vital signs are stable, no more tachycardia. He does have significant leukocytosis. Lactic acid was normal. Patient refused repeat blood work this morning. Blood cultures pending. Wound care nurse consulted. Plan: Stat wound culture, MRSA wound screen by PCR, chest x-ray, urinalysis, continue same treatment. #2 hyperglycemia: Without history of diabetes. Blood sugar was 147. Will check hemoglobin A1c. #3 other chronic medical problems: Stable, continue home medications as above. This note was generated with [employer] dictation software. It may contain incorrect words, spelling, and punctuation that were not noted in checking the note before signing. Inpatient E&M: 13311 Subs Hosp L2
[2020-02-11 13:07] LABS: M R Staph aureus DNA By PCR Negative (Negative); Probe Check PASS; Specimen Processing Control PASS; Staph aureus DNA By PCR POSITIVE (Negative)
[2020-02-11 14:47] LABS: Hemoglobin A1c 5.6 % (3.8-5.6)
[2020-02-11 20:24] LABS: Mucous, Urine 0 SEEN /hpf (<or=2+); Red Blood Cells-Urine 0 SEEN /hpf (0-5); Squamous Epithelial Cells - UA 0 SEEN /hpf (0-5)
[2020-02-11 20:32] LABS: Color, Urine Straw (Yellow); Glucose, Dipstick Normal (Normal); Ketone-Dipstick 5 mg/dl (Negative); Leukocyte Esterase-Dipstick 25 /ul (Negative); Nitrite-Dipstick Negative (Negative); Occult Blood-Urine 10 /ul (Negative); Protein-Dipstick 15 mg/dl (Negative); Specific Gravity, Urine 1.025 (1.002-1.030); Urine Bilirubin Dipstick Negative (Negative); Urine Clarity Clear (Clear); Urine Urobilinogen Normal (Normal)
[2020-02-11 20:41] LABS: White Blood Cells 0-5 SEEN /hpf (0-5)
[2020-02-11 20:42] LABS: Bacteria 1+ /hpf (None Seen); Coarse Granular Cast 0-5 SEEN /lpf (0-5 /lpf); Renal Epithelial Cells 0-5 SEEN /hpf (0-5)
[2020-02-12] VITALS (10 sets, daily range): BP systolic 102–136; BP diastolic 58–69; PULSE 78–90; RESP 18; TEMP 36.3–37.2; O2SAT 95–98
[2020-02-12] MEDS: MELATONIN 3 MG TABLET PO ×2 (00:35→22:20)
--- NOTE | 2020-02-12 07:14 | NURSING ---
Collar Stitcher notified this RN that pt refused AM lab draw. This RN and charge poster attempted to talk patient into get AM lab work and a new IV. Pt continues to refuse any injection or poke. Pt educated on the importance of lab work and concerns about current IV. PT continued to refused.
[2020-02-12] MEDS: Lisinopril 10 MG Tablet PO (07:37)
[2020-02-12] MEDS: 0.9% Saline Lock 10 ML Syringe IV (10:30)
[2020-02-12 10:34] LABS: Absolute Lymphocyte Count 12.43 X10^3/uL (0.83-4.51); Absolute Neutrophil Count 6.9 X10^3/uL (2.0-7.7); Basophil# 0.05 X10^3/uL; Basophil% 0.2 % (0-1); Eosinophil# 0.12 X10^3/uL; Eosinophils% 0.6 % (0-5); Hematocrit 34.1 % (40-54); Hemoglobin 11.5 g/dL (13.0-16.5); Lymphocyte # 12.43 X10^3/ul (4.0); Lymphocyte % 60.5 % (19-41); Mean Corp Hgb Conc 33.7 g/dL (32-36); Mean Corpuscular Hgb 31.3 pg (27.0-32.0); Mean Corpuscular Volume 92.9 fL (80-94); Mean Platelet Vol. 12.1 fl (6.2-12.0); Monocyte# 0.95 X10^3/uL; Monocyte% 4.6 % (0-10); NRBC Flagged by Analyzer 0.2 % (0-5); Neutrophil # 6.94 X10^3/uL (2.7-7.7); Neutrophil % 33.8 % (47-70); POSITIVE DIFFERENTIAL YES; Platelet Count 292 K/mm3 (150-450); RBC Distribution Width CV 13.7 % (11.6-14.6); RBC Distribution Width SD 46.8 fl (35.1-43.9); Red Blood Count 3.67 M/mm3 (4.6-6.2); White Blood Count 20.6 K/mm3 (4.4-11.0)
[2020-02-12 10:36] LABS: Differential Indicated SCAN CRITERIA MET
[2020-02-12 10:49] LABS: Anion Gap 5 (5-15); BUN 13 mg/dL (7-18); BUN/Creat Ratio 15.1 RATIO (10-20); Calcium,Total 8.2 mg/dL (8.5-10.1); Chloride 108 mmol/L (98-107); Creatinine, Serum 0.86 mg/dL (0.70-1.30); EST Glomerular Filtration Rate 96 mL/min (>60); Est Glom Filt Rate - Afr Amer 116 mL/min (>60); Glucose 119 mg/dL (74-106); Sodium Level 139 mmol/L (136-145)
[2020-02-12 11:02] LABS: Smudge Cells 1+
--- NOTE | 2020-02-12 12:28 | PCM.RX.CS ---
Consult Pharmacy has been consulted to manage selected antiobiotic: Vancomycin Type of Consult: Follow-up Suspected Infection: Skin/Soft tissue Prior Doses of Antibiotics Received/Current Regimen: [id number] iv q12h. Labs: Sodium 139 mmol/L (136-145) 02/12/20 10:20 Potassium 4.0 mmol/L (3.5-5.1) 02/12/20 10:20 Chloride 108 mmol/L (98-107) H 02/12/20 10:20 Carbon Dioxide 26.0 mmol/L (21.0-32.0) 02/12/20 10:20 Anion Gap 5 (5-15) 02/12/20 10:20 BUN 13 mg/dL (7-18) 02/12/20 10:20 Creatinine 0.86 mg/dL (0.70-1.30) 02/12/20 10:20 Est GFR (MDRD) Af Amer 116 mL/min (>60) 02/12/20 10:20 Est GFR (MDRD) Non-Af 96 mL/min (>60) 02/12/20 10:20 BUN/Creatinine Ratio 15.1 RATIO (10-20) 02/12/20 10:20 Glucose 119 mg/dL (74-106) H 02/12/20 10:20 Vancomycin Trough 14.0 ug/mL (5.0-15.0) 02/12/20 10:20 Microbiology: Microbiology 02/11/20 11:00 Wound - Leg Gram Stain - Final 02/11/20 11:00 Wound - Leg Wound Culture - Preliminary Staphylococcus aureus Weight used for dosin.2 kg Estimated Creatinine Clearance: 90 ml/min Goal Trough: 10-15 mcg/mL Pharmacy Plan for Drug Dosing: Today's trough 14.0. Renal ~same. Will continue same dose/freq. and get another trough level before PM dose of 9.8.20. Pharmacy Service will continue to monitor and adjust dosing as required. Follow-Up Labs: Trough Vancomycin - trough 9.8.20 @2130 before 2200 dose
--- NOTE | 2020-02-12 13:09 | PN_ITS ---
<Antoine Morgan - Last Filed: 02/12/20 13:09> Patient Problems: Active and Suspected Problems Cellulitis of lower extremity (Acute) Reason for Visit: LE cellulitis Subjective: Some improvement in swelling. Ongoing erythema with drainage. Pt denies fever/chills. no cough/sob. Pt reluctant to have blood drawn. Vitals/I&O's: Vital Signs Temp Pulse Resp BP Pulse Ox 97.3 F L 86 18 136/69 H 95 02/12/20 07:32 02/12/20 07:32 02/12/20 07:32 02/12/20 07:32 02/12/20 07:32 Oxygen Delivery Method Room Air Weight: 220 lb 14.451 oz Body Mass Index (BMI) 32.5 Intake and Output for Last 24 Hours 02/10/20 02/11/20 02/12/20 23:59 23:59 23:59 Intake Total 112 / 112 2768.00 / 2768.00 1269.25 / 1269.25 Balance 112 / 112 2768.00 / 2768.00 1269.25 / 1269.25 General: Alert, Oriented x3, Cooperative HEENT: Atraumatic, PERRLA, EOMI, Normocephalic Neck: Supple, No JVD, Negative Carotid Bruits Lungs: Clear to auscultation, Normal air movement Cardiovascular: Regular rate, No murmurs Abdomen: Bowel Sounds Present, Soft, Non Tender Extremities: No edema, Capillary Refill Less than 3 Seconds Skin: No rashes, No breakdown Musculoskeletal: No Tenderness to Palpation of Joints or Extremities Neurological: Cranial nerves II-XII grossly intact Psych/Mental Status: Normal Affect, Appropriate, Alert and oriented to time, place, person, mood and affect Microbiology Past 72 Hours 02/11/20 11:00 Wound - Leg Gram Stain - Final 02/11/20 11:00 Wound - Leg Wound Culture - Preliminary Staphylococcus aureus Laboratory Results 02/10/20 20:33: Hemoglobin A1c 5.6 02/11/20 20:14: Urine Color Straw, Urine Clarity Clear, Urine pH 5.0, Ur Specific Etters 1.025, Urine Protein 15 H, Urine Glucose (UA) Normal, Urine Ketones 5 H, Urine Occult Blood 10 H, Urine Nitrite Negative, Urine Bilirubin Negative, Urine Urobilinogen Normal, Ur Leukocyte Esterase 25 H, Urine RBC 0 SEEN, Urine WBC 0-5 SEEN, Ur Squamous Epith Cells 0 SEEN, Ur Renal Epithelial Cell 0-5 SEEN, Urine Bacteria 1+, Coarse Granular Casts 0-5 SEEN, Urine Mucus 0 SEEN 02/12/20 10:20: Vancomycin Trough 14.0 02/12/20 10:20: WBC 20.6 H, RBC 3.67 L, Hgb 11.5 L, Hct 34.1 L, MCV 92.9, MCH 31.3, MCHC 33.7, RDW Std Deviation 46.8 H, RDW Coeff of Heath 13.7, Plt Count 292, MPV 12.1 H, Immature Gran % (Auto) 0.300, Neut % (Auto) 33.8 L, Lymph % (Auto) 60.5 H, [place] % (Auto) 4.6, Eos % (Auto) 0.6, Baso % (Auto) 0.2, Absolute Neuts (auto) 6.9, Absolute Lymphs (auto) 12.43 H, Nucleated RBC % 0.2, Diff Path Review May foll, Smudge Cells 1+ H 02/12/20 10:20: Sodium 139, Potassium 4.0, Chloride 108 H, Carbon Dioxide 26.0, Anion Gap 5, BUN 13, Creatinine 0.86, Estim Creat Clear Calc 90.20, Est GFR (MDRD) Af Amer 116, Est GFR (MDRD) Non-Af 96, BUN/Creatinine Ratio 15.1, Glucose 119 H, Calcium 8.2 L Current Medications Acetaminophen (Tylenol) 650 mg PO Q6H PRN PRN PRN Reason: Pain Score 1-10/Temp > 100.7 F Enoxaparin Sodium (Lovenox) 40 mg SC DAILY [facility] Last Admin: 02/12/20 07:37 Dose: Not Given Documented by: Ampicillin Sodium/Sulbactam (Sodium 3 gm/ Sodium Chloride) 112 mls @ 150 mls/hr IV Q6 [facility] Last Infusion: 02/12/20 06:25 Dose: Infused Documented by: Vancomycin IV Pharmacy to Dose (1 ea/ Sodium Chloride) 500 mls @ 250 mls/hr IV PRN PRN; Protocol PRN Reason: Rx to Dose Sodium Chloride () 250 mls @ 15 mls/hr IV .[id number] PRN PRN Reason: Saline Flush Last Infusion: 02/12/20 10:55 Dose: Infused Documented by: Sodium Chloride () 250 mls @ 15 mls/hr IV .[id number] PRN PRN Reason: Additional IVPB Infusion Vancomycin HCl 1,500 mg/ (Sodium Chloride) 530 mls @ 250 mls/hr IV Q12H [facility] Last Admin: 02/12/20 10:29 Dose: 250 mls/hr Documented by: Lisinopril (Zestril) 10 mg PO DAILY [facility] Last Admin: 02/12/20 07:37 Dose: 10 mg Documented by: Melatonin (Melatonin) 3 mg PO QHS PRN PRN PRN Reason: INSOMNIA Last Admin: 02/12/20 00:35 Dose: 3 mg Documented by: Nutritional Formula (Lactose Free) (Ensure Enlive) 120 ml PO 4X/DAY [facility] Last Admin: 02/12/20 07:37 Dose: 120 ml Documented by: Ondansetron HCl (Zofran) 4 mg IV Q8H PRN PRN PRN Reason: NAUSEA/VOMITING Senna/Docusate Sodium (Senokot-S, Kathleen-Colace) 2 tablet PO BID PRN PRN PRN Reason: Constipation Sodium Chloride () 10 - 40 ml IV UD PRN PRN Reason: SALINE FLUSH Last Admin: 02/12/20 10:30 Dose: 10 ml Documented by: Medical Necessity - Tobacco Use Smoking Status: Never smoker Assessment/Plan All Active Problems Cellulitis of lower extremity (Acute) 1. 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 Continue vanc and amp. Check blood and wound cx. Prior wound cultures with multi drug resistant Staph epi and Staph aureus. C/s special warfare operator tomorrow. Refer to wound center at [place]. -prelim wound cx with Staph aureus, mrsa pcr neg. Blood cx pending. -CXR neg -UA neg 2. MRDD - complicating compliance a worsening progosis for #1. 3. HTN - stable 4. Hyperglycemia - a1c 5.6, likely stres response. glucose trending down. 5. Scalp melanoma s/p surgical resumption- pt picking at op site. wound care to see tomorrow. DVT ppx: lovenox This patient was seen by Antoine Morgan PA-C under the supervision of Dr. Grant <Mari Grant E - Last Filed: 02/12/20 13:27> Vitals/I&O's: Vital Signs Temp Pulse Resp BP Pulse Ox 97.3 F L 86 18 136/69 H 95 02/12/20 07:32 02/12/20 07:32 02/12/20 07:32 02/12/20 07:32 02/12/20 07:32 Oxygen Delivery Method Room Air Weight: 220 lb 14.451 oz Body Mass Index (BMI) 32.5 Intake and Output for Last 24 Hours 02/10/20 02/11/20 02/12/20 23:59 23:59 23:59 Intake Total 112 / 112 2768.00 / 2768.00 1799.25 / 1799.25 Balance 112 / 112 2768.00 / 2768.00 1799.25 / 1799.25 Microbiology Past 72 Hours 02/11/20 11:00 Wound - Leg Gram Stain - Final 02/11/20 11:00 Wound - Leg Wound Culture - Preliminary Staphylococcus aureus Laboratory Results 02/10/20 20:33: Hemoglobin A1c 5.6 02/11/20 20:14: Urine Color Straw, Urine Clarity Clear, Urine pH 5.0, Ur Specific Etters 1.025, Urine Protein 15 H, Urine Glucose (UA) Normal, Urine Ketones 5 H, Urine Occult Blood 10 H, Urine Nitrite Negative, Urine Bilirubin Negative, Urine Urobilinogen Normal, Ur Leukocyte Esterase 25 H, Urine RBC 0 SEEN, Urine WBC 0-5 SEEN, Ur Squamous Epith Cells 0 SEEN, Ur Renal Epithelial Cell 0-5 SEEN, Urine Bacteria 1+, Coarse Granular Casts 0-5 SEEN, Urine Mucus 0 SEEN 02/12/20 10:20: Vancomycin Trough 14.0 02/12/20 10:20: WBC 20.6 H, RBC 3.67 L, Hgb 11.5 L, Hct 34.1 L, MCV 92.9, MCH 31.3, MCHC 33.7, RDW Std Deviation 46.8 H, RDW Coeff of Heath 13.7, Plt Count 292, MPV 12.1 H, Immature Gran % (Auto) 0.300, Neut % (Auto) 33.8 L, Lymph % (Auto) 60.5 H, [place] % (Auto) 4.6, Eos % (Auto) 0.6, Baso % (Auto) 0.2, Absolute Neuts (auto) 6.9, Absolute Lymphs (auto) 12.43 H, Nucleated RBC % 0.2, Diff Path Review May foll, Smudge Cells 1+ H 02/12/20 10:20: Sodium 139, Potassium 4.0, Chloride 108 H, Carbon Dioxide 26.0, Anion Gap 5, BUN 13, Creatinine 0.86, Estim Creat Clear Calc 90.20, Est GFR (MDRD) Af Amer 116, Est GFR (MDRD) Non-Af 96, BUN/Creatinine Ratio 15.1, Glucose 119 H, Calcium 8.2 L Current Medications Acetaminophen (Tylenol) 650 mg PO Q6H PRN PRN PRN Reason: Pain Score 1-10/Temp > 100.7 F Enoxaparin Sodium (Lovenox) 40 mg SC DAILY [facility] Last Admin: 02/12/20 07:37 Dose: Not Given Documented by: Ampicillin Sodium/Sulbactam (Sodium 3 gm/ Sodium Chloride) 112 mls @ 150 mls/hr IV Q6 [facility] Last Admin: 02/12/20 13:10 Dose: 150 mls/hr Documented by: Vancomycin IV Pharmacy to Dose (1 ea/ Sodium Chloride) 500 mls @ 250 mls/hr IV PRN PRN; Protocol PRN Reason: Rx to Dose Sodium Chloride () 250 mls @ 15 mls/hr IV .[id number] PRN PRN Reason: Saline Flush Last Infusion: 02/12/20 10:55 Dose: Infused Documented by: Sodium Chloride () 250 mls @ 15 mls/hr IV .[id number] PRN PRN Reason: Additional IVPB Infusion Vancomycin HCl 1,500 mg/ (Sodium Chloride) 530 mls @ 250 mls/hr IV Q12H [facility] Last Infusion: 02/12/20 13:10 Dose: Infused Documented by: Lisinopril (Zestril) 10 mg PO DAILY [facility] Last Admin: 02/12/20 07:37 Dose: 10 mg Documented by: Melatonin (Melatonin) 3 mg PO QHS PRN PRN PRN Reason: INSOMNIA Last Admin: 02/12/20 00:35 Dose: 3 mg Documented by: Nutritional Formula (Lactose Free) (Ensure Enlive) 120 ml PO 4X/DAY [facility] Last Admin: 02/12/20 13:09 Dose: 120 ml Documented by: Ondansetron HCl (Zofran) 4 mg IV Q8H PRN PRN PRN Reason: NAUSEA/VOMITING Senna/Docusate Sodium (Senokot-S, Kathleen-Colace) 2 tablet PO BID PRN PRN PRN Reason: Constipation Sodium Chloride () 10 - 40 ml IV UD PRN PRN Reason: SALINE FLUSH Last Admin: 02/12/20 10:30 Dose: 10 ml Documented by: Assessment/Plan Hospitalist note: I am seeing this patient in conjunction with Antoine Morgan. I independently seen and examined the patient. Progress note above and laboratory data reviewed and I concur with above treatment plan. Swelling, erythema and drainage of the left leg with no significant improvement. Swelling of the right leg is improving as well as the erythema. His vital signs are stable. - Physical Exam General: Alert, Oriented x3, Cooperative, No apparent distress. HEENT: Atraumatic, PERRLA, EOMI. Neck: Supple, No JVD, Negative Carotid Bruits, Trachea Midline, Thyroid Normal. Lungs: Diminished breath sounds bilateral, otherwise clear no rhonchi, No wheeze, No rales. Cardiovascular: Regular rate, Regular Rhythm, Normal S1, Normal S2, PMI Normal. Abdomen: Bowel Sounds Present, Soft, Non Tender, Non-Distended, No Hepato- splenomegaly. Extremities: No clubbing, No cyanosis. Bilateral lower extremity swelling, erythema extending from just below both knees down to the both feet, hot to palpation, warmth multiple small nonhealing wounds, sloughing with granulation tissue, minimal serous drainage. Skin: No rashes, No breakdown Neurological: Cranial nerves are intact, neuro grossly intact Vital Signs are stable. Assessment and plan: #1 acute bilateral lower extremity cellulitis/sepsis: In the setting of chronic bilateral leg edema and recurrent infections and cellulitis. Remains on IV Unasyn and vancomycin. He has been afebrile, vital signs are stable, WBC is trending down. Urine culture revealed staph aureus, final is pending. Urine and blood cultures are pending. Chest x-ray showed no acute findings. Urinalysis showed no evidence of acute cystitis. Staph aureus PCR was positive but MRSA is negative. Wound care nurse consulted. Plan to continue same treatment. #2 hyperglycemia: Without history of diabetes. Blood sugar has been anywhere around 100-150. Hemoglobin A1c was 5.6%. #3 other chronic medical problems: Stable, continue home medications as above. This note was generated with [employer] dictation software. It may contain incorrect words, spelling, and punctuation that were not noted in checking the note before signing. Inpatient E&M: 22717 Subs Hosp L2
[2020-02-12] MEDS: Acetaminophen 325 MG Tablet 650 MG PO (14:45)
--- NOTE | 2020-02-12 15:46 | NURSING ---
Sister in law Arthur, called in for update. States she is caring for patient's wounds at home and would like SNF placement if possible. Her number is [phone]
[2020-02-13 02:00] VITALS: BP 111/63; PULSE 103; PULSE 76; RESP 18; TEMP 36.7; O2SAT 100
[2020-02-13 05:55] LABS: Basophil# 0.04 X10^3/uL; Basophil% 0.2 % (0-1); Eosinophil# 0.38 X10^3/uL; Hemoglobin 11.2 g/dL (13.0-16.5); Lymphocyte % 61.8 % (19-41); Mean Corp Hgb Conc 32.9 g/dL (32-36); Mean Corpuscular Volume 94.2 fL (80-94); Mean Platelet Vol. 11.7 fl (6.2-12.0); Monocyte# 0.75 X10^3/uL; NRBC Flagged by Analyzer 0 % (0-5); Neutrophil # 6.01 X10^3/uL (2.7-7.7); Neutrophil % 31.8 % (47-70); POSITIVE DIFFERENTIAL YES; POSITIVE MORPHOLOGY YES; Platelet Count 285 K/mm3 (150-450); RBC Distribution Width CV 13.7 % (11.6-14.6); RBC Distribution Width SD 47.4 fl (35.1-43.9); Red Blood Count 3.61 M/mm3 (4.6-6.2); White Blood Count 18.9 K/mm3 (4.4-11.0)
[2020-02-13 05:58] LABS: Differential Indicated SCAN CRITERIA MET
[2020-02-13 06:00] VITALS: PULSE 73
[2020-02-13 06:17] LABS: Anion Gap 3 (5-15); BUN 10 mg/dL (7-18); BUN/Creat Ratio 13.2 RATIO (10-20); Calcium,Total 8.1 mg/dL (8.5-10.1); Chloride 107 mmol/L (98-107); Creatinine, Serum 0.76 mg/dL (0.70-1.30); EST Glomerular Filtration Rate 111 mL/min (>60); Est Glom Filt Rate - Afr Amer 135 mL/min (>60); Estimated Creatinine Clearance 102.07 ml/min; Glucose 100 mg/dL (74-106); Potassium 3.9 mmol/L (3.5-5.1); Sodium Level 138 mmol/L (136-145)
[2020-02-13 06:28] LABS: Differential Comment SCANNED
[2020-02-13 08:05] VITALS: PULSE 92
[2020-02-13 08:20] VITALS: BP 120/78; PULSE 79; RESP 16; TEMP 36.7; O2SAT 99
[2020-02-13] MEDS: Lisinopril 10 MG Tablet PO (10:13)
--- NOTE | 2020-02-13 10:45 | CASEMGMT ---
GLADIS WILLSON Face to Face with patient for initial transition planning/care coordination assessment. GLADIS WILLSON introduced self and role at [facility]. Patient sitting in chair, alert and oriented. Patient willing to participate in assessment and is able to answer all questions appropriately. Care providers, pharmacy, and demographics verified. Patient requesting SNF at discharge for wound care. GLADIS WILLSON explained to patient that he would need a precert from insurance to go to SNF. RN CM explained patient would need to work with therapy to determine if he is appropriate for SNF. RN ANAMIKA provided list of in-network SNFs. Patient states he has no further needs or concerns at this time. CM to follow for discharge planning needs that may arise. GLADIS WILLSON updated ELSA Infante regarding request for placement. PCP: [facility] Specialists: none Preferred Pharmacy: [facility] Insurance: [id number] Prescription Benefit: yes Living Will/HPOA: none LNOK: father, brother, DIL Living Arrangements: Patient lives with father in house with bed and bath on main level. Patient states he is independent at home. Transportation: Brother DME/HHC: Patient denies DME or previous HHC. Disposition Plan: TBD. SNF vs HHC. Birdie BARTON, RN, CM
--- NOTE | 2020-02-13 11:19 | NURSING ---
attempted to return family's call, but received no answer
--- NOTE | 2020-02-13 12:09 | PCM.PN.HOSP ---
<Antoine Morgan - Last Filed: 02/13/20 12:09> Patient Problems: Active and Suspected Problems Cellulitis of lower extremity (Acute) Reason for Visit: BL LE cellulitis Subjective: Resting comfortably in chair at bedside NAD. Per nursing pt ambulating in [place] with no issues. No fever/chills. No cough/sob. No vomiting/diarrhea. Pt worried about going home and thinks he needs placement. Vitals/I&O's: Vital Signs Temp Pulse Resp BP Pulse Ox 98.1 F 79 16 120/78 99 02/13/20 08:20 02/13/20 08:20 02/13/20 08:20 02/13/20 08:20 02/13/20 08:20 Oxygen Delivery Method Room Air Weight: 220 lb 14.451 oz Body Mass Index (BMI) 32.5 Intake and Output for Last 24 Hours 02/11/20 02/12/20 02/13/20 23:59 23:59 23:59 Intake Total 2768.00 / 2768.00 3023.25 / 3823.25 1554 / 1554 Balance 2768.00 / 2768.00 3023.25 / 3823.25 1554 / 1554 General: Alert, Oriented x3, Cooperative HEENT: Atraumatic, PERRLA, EOMI, Normocephalic Neck: Supple, No JVD, Negative Carotid Bruits Lungs: Clear to auscultation, Normal air movement Cardiovascular: Regular rate, No murmurs Abdomen: Bowel Sounds Present, Soft, Non Tender Extremities: No edema, Capillary Refill Less than 3 Seconds Skin: - - no active drainage. erythema and swelling improved. nontender. Musculoskeletal: No Tenderness to Palpation of Joints or Extremities Neurological: Cranial nerves II-XII grossly intact Psych/Mental Status: Normal Affect, Appropriate, Alert and oriented to time, place, person, mood and affect Microbiology Past 72 Hours 02/10/20 20:37 Blood Culture (Wb) - Anticubital Left Blood Culture - Preliminary No growth in 48 hours. 02/10/20 20:28 Blood Culture (Wb) - Left Hand Blood Culture - Preliminary No growth in 48 hours. 02/11/20 20:14 Urine, Clean Catch Urine Culture - Final Coag Negative Staph 02/11/20 11:00 Wound - Leg Gram Stain - Final 02/11/20 11:00 Wound - Leg Wound Culture - Preliminary Staphylococcus aureus Laboratory Results 02/13/20 05:46: WBC 18.9 H, RBC 3.61 L, Hgb 11.2 L, Hct 34.0 L, MCV 94.2 H, MCH 31.0, MCHC 32.9, RDW Std Deviation 47.4 H, RDW Coeff of Heath 13.7, Plt Count 285, MPV 11.7, Immature Gran % (Auto) 0.200, Neut % (Auto) 31.8 L, Lymph % (Auto) 61.8 H, Alpine % (Auto) 4.0, Eos % (Auto) 2.0, Baso % (Auto) 0.2, Absolute Neuts (auto) 6.0, Absolute Lymphs (auto) 11.70 H, Nucleated RBC % 0, Differential Comment SCANNED 02/13/20 05:46: Sodium 138, Potassium 3.9, Chloride 107, Carbon Dioxide 28.0, Anion Gap 3 L, BUN 10, Creatinine 0.76, Estim Creat Clear Calc 102.07, Est GFR (MDRD) Af Amer 135, Est GFR (MDRD) Non-Af 111, BUN/Creatinine Ratio 13.2, Glucose 100, Calcium 8.1 L Current Medications Acetaminophen (Tylenol) 650 mg PO Q6H PRN PRN PRN Reason: Pain Score 1-10/Temp > 100.7 F Last Admin: 02/12/20 14:45 Dose: 650 mg Documented by: Enoxaparin Sodium (Lovenox) 40 mg SC DAILY [facility] Last Admin: 02/13/20 10:13 Dose: Not Given Documented by: Ampicillin Sodium/Sulbactam (Sodium 3 gm/ Sodium Chloride) 112 mls @ 150 mls/hr IV Q6 [facility] Last Infusion: 02/13/20 07:00 Dose: Infused Documented by: Vancomycin IV Pharmacy to Dose (1 ea/ Sodium Chloride) 500 mls @ 250 mls/hr IV PRN PRN; Protocol PRN Reason: Rx to Dose Sodium Chloride () 250 mls @ 15 mls/hr IV .[id number] PRN PRN Reason: Saline Flush Last Infusion: 02/12/20 10:55 Dose: Infused Documented by: Sodium Chloride () 250 mls @ 15 mls/hr IV .[id number] PRN PRN Reason: Additional IVPB Infusion Vancomycin HCl 1,500 mg/ (Sodium Chloride) 530 mls @ 250 mls/hr IV Q12H [facility] Last Admin: 02/13/20 10:14 Dose: 250 mls/hr Documented by: Lisinopril (Zestril) 10 mg PO DAILY [facility] Last Admin: 02/13/20 10:13 Dose: 10 mg Documented by: Melatonin (Melatonin) 3 mg PO QHS PRN PRN PRN Reason: INSOMNIA Last Admin: 02/12/20 22:20 Dose: 3 mg Documented by: Nutritional Formula (Lactose Free) (Ensure Enlive) 120 ml PO 4X/DAY [facility] Last Admin: 02/13/20 10:15 Dose: 120 ml Documented by: Ondansetron HCl (Zofran) 4 mg IV Q8H PRN PRN PRN Reason: NAUSEA/VOMITING Senna/Docusate Sodium (Senokot-S, Kathleen-Colace) 2 tablet PO BID PRN PRN PRN Reason: Constipation Sodium Chloride () 10 - 40 ml IV UD PRN PRN Reason: SALINE FLUSH Last Admin: 02/12/20 10:30 Dose: 10 ml Documented by: STROKE Vital Signs/Narrative: Vital Signs Temp Pulse Resp BP Pulse Ox 02/13/20 08:20 98.1 F 79 16 120/78 99 Medical Necessity - Tobacco Use Smoking Status: Never smoker Assessment/Plan All Active Problems Cellulitis of lower extremity (Acute) 1. 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 Continue vanc and amp. Check blood and wound cx. Prior wound cultures with multi drug resistant Staph epi and Staph aureus. C/s household worker tomorrow. Refer to wound center at ct. -prelim wound cx with Staph aureus, mrsa pcr neg. Blood cx pending. -CXR neg -UA neg 2. MRDD - complicating compliance a worsening prognosis for #1. 3. HTN - stable 4. Hyperglycemia - a1c 5.6, likely stress response. glucose trending down. 5. Scalp melanoma s/p surgical resumption- pt picking at op site. wound care to see tomorrow. DVT ppx: lovenox [place] planning: Pt and family want him placed, however he is ambulatory. There is concern his family will not do all of his dressing changes at home. This patient was seen by Antoine Morgan PA-C under the supervision of Dr. Grant <Mari Grant E - Last Filed: 02/13/20 13:09> Vitals/I&O's: Vital Signs Temp Pulse Resp BP Pulse Ox 98.1 F 79 16 120/78 99 02/13/20 08:20 02/13/20 08:20 02/13/20 08:20 02/13/20 08:20 02/13/20 08:20 Oxygen Delivery Method Room Air Weight: 220 lb 14.451 oz Body Mass Index (BMI) 32.5 Intake and Output for Last 24 Hours 02/11/20 02/12/20 02/13/20 23:59 23:59 23:59 Intake Total 2768.00 / 2768.00 3023.25 / 3823.25 208 / 4 Balance 2768.00 / 2768.00 3023.25 / 3823.25 2083 Microbiology Past 72 Hours 02/10/20 20:37 Blood Culture (Wb) - Anticubital Left Blood Culture - Preliminary No growth in 48 hours. 02/10/20 20:28 Blood Culture (Wb) - Left Hand Blood Culture - Preliminary No growth in 48 hours. 02/11/20 20:14 Urine, Clean Catch Urine Culture - Final Coag Negative Staph 02/11/20 11:00 Wound - Leg Gram Stain - Final 02/11/20 11:00 Wound - Leg Wound Culture - Preliminary Staphylococcus aureus Laboratory Results 02/13/20 05:46: WBC 18.9 H, RBC 3.61 L, Hgb 11.2 L, Hct 34.0 L, MCV 94.2 H, MCH 31.0, MCHC 32.9, RDW Std Deviation 47.4 H, RDW Coeff of Heath 13.7, Plt Count 285, MPV 11.7, Immature Gran % (Auto) 0.200, Neut % (Auto) 31.8 L, Lymph % (Auto) 61.8 H, Alpine % (Auto) 4.0, Eos % (Auto) 2.0, Baso % (Auto) 0.2, Absolute Neuts (auto) 6.0, Absolute Lymphs (auto) 11.70 H, Nucleated RBC % 0, Differential Comment SCANNED 02/13/20 05:46: Sodium 138, Potassium 3.9, Chloride 107, Carbon Dioxide 28.0, Anion Gap 3 L, BUN 10, Creatinine 0.76, Estim Creat Clear Calc 102.07, Est GFR (MDRD) Af Amer 135, Est GFR (MDRD) Non-Af 111, BUN/Creatinine Ratio 13.2, Glucose 100, Calcium 8.1 L Current Medications Acetaminophen (Tylenol) 650 mg PO Q6H PRN PRN PRN Reason: Pain Score 1-10/Temp > 100.7 F Last Admin: 02/12/20 14:45 Dose: 650 mg Documented by: Enoxaparin Sodium (Lovenox) 40 mg SC DAILY [facility] Last Admin: 02/13/20 10:13 Dose: Not Given Documented by: Ampicillin Sodium/Sulbactam (Sodium 3 gm/ Sodium Chloride) 112 mls @ 150 mls/hr IV Q6 [facility] Last Admin: 02/13/20 12:25 Dose: 150 mls/hr Documented by: Vancomycin IV Pharmacy to Dose (1 ea/ Sodium Chloride) 500 mls @ 250 mls/hr IV PRN PRN; Protocol PRN Reason: Rx to Dose Sodium Chloride () 250 mls @ 15 mls/hr IV .[id number] PRN PRN Reason: Saline Flush Last Infusion: 02/12/20 10:55 Dose: Infused Documented by: Sodium Chloride () 250 mls @ 15 mls/hr IV .[id number] PRN PRN Reason: Additional IVPB Infusion Vancomycin HCl 1,500 mg/ (Sodium Chloride) 530 mls @ 250 mls/hr IV Q12H [facility] Last Infusion: 02/13/20 12:24 Dose: Infused Documented by: Lisinopril (Zestril) 10 mg PO DAILY [facility] Last Admin: 02/13/20 10:13 Dose: 10 mg Documented by: Melatonin (Melatonin) 3 mg PO QHS PRN PRN PRN Reason: INSOMNIA Last Admin: 02/12/20 22:20 Dose: 3 mg Documented by: Nutritional Formula (Lactose Free) (Ensure Enlive) 120 ml PO 4X/DAY [facility] Last Admin: 02/13/20 10:15 Dose: 120 ml Documented by: Ondansetron HCl (Zofran) 4 mg IV Q8H PRN PRN PRN Reason: NAUSEA/VOMITING Senna/Docusate Sodium (Senokot-S, Kathleen-Colace) 2 tablet PO BID PRN PRN PRN Reason: Constipation Sodium Chloride () 10 - 40 ml IV UD PRN PRN Reason: SALINE FLUSH Last Admin: 02/12/20 10:30 Dose: 10 ml Documented by: Assessment/Plan Hospitalist note: I am seeing this patient in conjunction with Antoine Morgan. I independently seen and examined the patient. Progress note above and laboratory data reviewed and I concur with above treatment plan. Patient denied any significant complaints. Denied fever chills. His vital signs are stable. - Physical Exam General: Alert, Oriented x3, Cooperative, No apparent distress. HEENT: Atraumatic, PERRLA, EOMI. Neck: Supple, No JVD, Negative Carotid Bruits, Trachea Midline, Thyroid Normal. Lungs: Diminished breath sounds bilateral, otherwise clear no rhonchi, No wheeze, No rales. Cardiovascular: Regular rate, Regular Rhythm, Normal S1, Normal S2, PMI Normal. Abdomen: Bowel Sounds Present, Soft, Non Tender, Non-Distended, No Hepato-splenomegaly. Extremities: No clubbing, No cyanosis. Bilateral lower extremity swelling, erythema extending from just below both knees down to the both feet, more on the left leg, hot to palpation, warmth multiple small nonhealing wounds, sloughing with granulation tissue, minimal serous drainage. Erythema is improving. Skin: No rashes, No breakdown Neurological: Cranial nerves are intact, neuro grossly intact Vital Signs are stable. Assessment and plan: #1 acute bilateral lower extremity cellulitis/sepsis: In the setting of chronic bilateral leg edema and recurrent infections and cellulitis. Remains on IV Unasyn and vancomycin. He has been afebrile, vital signs are stable, WBC continues to trend down. Blood culture showed no growth in 48 hours. Wound culture revealed MSSA, final is pending. urine staph aureus PCR was positive but MRSA is negative. Wound care nurse consulted. Plan to continue same treatment, follow wound culture, PT OT evaluation and treatment. Patient's family requested that patient should be placed in skilled facility but he is ambulatory. Plan to have PT OT evaluate him. #2 hyperglycemia: Without history of diabetes. Blood sugar has been anywhere around 100-150. Hemoglobin A1c was 5.6%. #3 other chronic medical problems: Stable, continue home medications as above. This note was generated with Key[employer] dictation software. It may contain incorrect words, spelling, and punctuation that were not noted in checking the note before signing. Inpatient E&M: 61717 Subs Hosp L2
[2020-02-13 13:47] LABS: Pathologist Review Reviewed
[2020-02-13 13:49] LABS: Pathologist Review Reviewed
[2020-02-13 13:52] VITALS: BP 124/75; PULSE 76; RESP 16; TEMP 37.1; O2SAT 99
--- NOTE | 2020-02-13 14:36 | CASEMGMT ---
GLADIS WILLSON in to discuss discharge planning with patient and MARCELL. GLADIS WILLSON discussed how well patient participated with therapy and potential to get denied for SNF from insurance. Patient and MARCELL agreeable for patient to discharge home with [facility]. GLADIS WILLSON provided list of in-network [facility] agencies. Patient would like [facility] and gave permission for [facility] call MARCELL regarding start of care. GLADIS WILLSON sent referral to [facility]. Awaiting call back for acceptance. CM will continue to follow this patient and plan for a safe discharge.
[2020-02-13 19:55] VITALS: BP 130/71; PULSE 82; RESP 16; TEMP 36.9; O2SAT 98
[2020-02-13] MEDS: MELATONIN 3 MG TABLET PO (21:32)
[2020-02-13 22:16] LABS: Vancomycin, Trough Level 16.6 ug/mL (5.0-15.0)
--- NOTE | 2020-02-13 22:42 | NURSING ---
2240-spoke with eTvin from pharmacy to clarify if ok to restart vanco after vanco trough was 16.6. Tevin states ok to run vanco now.
--- NOTE | 2020-02-13 22:42 | PCM.RX.CS ---
Consult Pharmacy has been consulted to manage selected antiobiotic: Vancomycin Type of Consult: Follow-up Suspected Infection: Skin/Soft tissue Prior Doses of Antibiotics Received/Current Regimen: Medications Vancomycin HCl 1,500 mg/ (Sodium Chloride) 530 mls @ 250 mls/hr IV Q12H [facility] Last Admin: 02/13/20 22:39 Dose: 250 mls/hr Labs: Sodium 138 mmol/L (136-145) 02/13/20 05:46 Potassium 3.9 mmol/L (3.5-5.1) 02/13/20 05:46 Chloride 107 mmol/L (98-107) 02/13/20 05:46 Carbon Dioxide 28.0 mmol/L (21.0-32.0) 02/13/20 05:46 Anion Gap 3 (5-15) L 02/13/20 05:46 BUN 10 mg/dL (7-18) 02/13/20 05:46 Creatinine 0.76 mg/dL (0.70-1.30) 02/13/20 05:46 Est GFR (MDRD) Af Amer 135 mL/min (>60) 02/13/20 05:46 Est GFR (MDRD) Non-Af 111 mL/min (>60) 02/13/20 05:46 BUN/Creatinine Ratio 13.2 RATIO (10-20) 02/13/20 05:46 Glucose 100 mg/dL (74-106) 02/13/20 05:46 Vancomycin Trough 16.6 ug/mL (5.0-15.0) H 02/13/20 21:44 Microbiology: Microbiology 02/10/20 20:37 Blood Culture (Wb) - Anticubital Left Blood Culture - Preliminary No growth in 48 hours. 02/10/20 20:28 Blood Culture (Wb) - Left Hand Blood Culture - Preliminary No growth in 48 hours. 02/11/20 20:14 Urine, Clean Catch Urine Culture - Final Coag Negative Staph 02/11/20 11:00 Wound - Leg Gram Stain - Final 02/11/20 11:00 Wound - Leg Wound Culture - Preliminary Staphylococcus aureus Weight used for dosin.2 kg Estimated Creatinine Clearance: 102 Goal Trough: 10-15 mcg/mL Pharmacy Plan for Drug Dosing: Trough level of 16.6 was slightly above target range of 10-15. Will continue same dosing (SCr decreasing), and re-draw trough in 2 days. Pharmacy Service will continue to monitor and adjust dosing as required. Follow-Up Labs: Trough Vancomycin Labs to be done on [date and time ordered]: 02/15/20 @9030
[2020-02-14 01:55] VITALS: BP 127/69; PULSE 76; RESP 18; TEMP 37.1; O2SAT 99
[2020-02-14 07:48] VITALS: O2SAT 96
[2020-02-14 08:24] VITALS: BP 124/65; PULSE 81; RESP 16; TEMP 36.8; O2SAT 98
[2020-02-14] MEDS: Lisinopril 10 MG Tablet PO (09:22)
--- NOTE | 2020-02-14 10:32 | CASEMGMT ---
Addendum entered by Hasmukh Becerra 02/14/20 14:31: GLADIS Govea, inquiring about HHC and daily dressing changes. Per GLADIS Wall CM, Sis-in-law has been doing daily dressing changes and agreeable to doing them on , and plan for HHC start of care is for Wednesday. Addendum entered by Hasmukh Becerra 02/14/20 14:25: Discharge summary faxed to [facility] at this time Addendum entered by Hasmukh Becerra 02/14/20 13:15: Discharge instructions faxed to [facility] Original Note: GLADIS WILLSON NOTE: Call placed to Cydney @ [facility]. She states they are able to accept pt. She was made aware pt is being discharged today. GLADIS WILLSON to fax discharge instructions and summary to [facility] when they are available. Ellen BARTON RN, CM
--- NOTE | 2020-02-14 11:23 | DCINST_ITS ---
- Discharge Diagnoses Current Active Problems: Current Active and Chronic Problems Cellulitis of lower extremity (Acute) You will use the following diet at home:: Cardiac Your food should be the consistency of: Regular Your liquids should be the consistency of: Regular/Thin Discharge Activity: Return to Normal Activity, - - Wound dressings should be changed daily. Allergies/Adverse Reactions: Allergies No Known Allergies Allergy (Verified 02/10/20 20:03) Medications to take at Discharge Lisinopril [Zestril] 10 mg PO DAILY 12/15/16 Acetaminophen [Tylenol Tablet] 650 mg PO Q6H PRN PRN tab 02/14/20 Amoxicillin/Potassium Clav [Augmentin 875-125 Tablet] 1 ea PO BID #10 tab 02/14/20 The following prescriptions were given: Amoxicillin/Potassium Clav [Augmentin 875-125 Tablet] 1 ea PO BID #10 tab Transmission Status: Sent to [id number] Primary Care Physician: Anthony aVng MD [Primary Care Provider] - Please follow up with your Primary Care Physician in: 1-2 weeks Test Results: Test results from this visit will be discussed in further detail at your follow- up appointment, if applicable. Please Follow Up With: Wound care center When: 1 week Proposed Discharge Date: 02/14/20
--- NOTE | 2020-02-14 11:37 | NURSING ---
wound photo: right lower leg
--- NOTE | 2020-02-14 11:38 | NURSING ---
wound photo: left lower leg (medial view)
--- NOTE | 2020-02-14 11:39 | NURSING ---
left lower leg: lateral view
--- NOTE | 2020-02-14 11:40 | NURSING ---
wound photo: head
[2020-02-14 12:29] VITALS: BP 116/68; PULSE 77; RESP 16; TEMP 36.8; O2SAT 98
--- NOTE | 2020-02-14 14:20 | PCM.DC.SUM ---
<Antoine Morgan - Last Filed: 02/14/20 14:20> Discharge Date and Diagnosis Date of Admission: 02/10/20 Date of Discharge: 02/14/20 - Primary Discharge Diagnosis Acute Problems: Active Problems Acute sepsis 2/2 Cellulitis of lower extremity (Acute) 2/2 MSSA and Strep Self picking complicating above - Secondary Discharge Diagnosis Chronic Problems: Chronic Problems Ulcer of right lower extremity with fat layer exposed (Chronic) Venous insufficiency of both lower extremities (Chronic) Ulcer of left lower extremity with fat layer exposed (Chronic) Stasis dermatitis of both legs (Chronic) Ulcer of right lower extremity, limited to breakdown of skin (Chronic) Noncompliance (Chronic) Edema of both legs (Chronic) Cellulitis of both lower extremities (Chronic) Ulcer of left lower leg (Chronic) Mental deficiency (Chronic) HTN (hypertension) (Chronic) Hospital Course and Treatment Imaging Results: RAD/Chest 1 View (Portable) IMPRESSION: Normal x-ray examination of the chest. Consultations 02/10/20 22:30 Consult: Onc/Wound/train master Routine Comment: Operations: None Procedures: None Summary of Care Provided: Hospital course: The patient is a 60 year old M past medical history of MRDD, self picking, prior cellulitis with prior history of MRSE, MSSA, also with history of melanoma recently removed from the scalp, who presented to the emergency room with worsening of wounds on his lower extremities. In the ER the patient appeared septic with cellulitis of the bilateral lower extremities with increased white count, tachycardia, and fever with T-max of 100.4. He was admitted to the medical surgical floor and placed on vancomycin and Unasyn. Wound cultures were obtained. Patient responded well to IV antibiotics. Wound cultures demonstrated MSSA and group B strep. Blood cultures were negative. Patient was transitioned to Augmentin and will complete 10 days total of therapy. He was referred to the wound center at discharge. Home health care was arranged for him to assist with facilitating dressing changes at home. He was discharged home in stable condition. He will need follow-up with his PCP in 1 to 2 weeks, follow-up the wound center in 1 week. This patient was seen by Antoine Morgan PA-C under the supervision of Doctor Marco. [] - Physical Exam Vitals/I&O's: Vital Signs Temp Pulse Resp BP Pulse Ox 98.3 F 77 16 116/68 98 02/14/20 12:29 02/14/20 12:29 02/14/20 12:29 02/14/20 12:29 02/14/20 12:29 Oxygen Delivery Method Room Air Weight: 220 lb 14.451 oz Body Mass Index (BMI) 32.5 Intake and Output for Last 24 Hours 02/12/20 02/13/20 02/14/20 23:59 23:59 23:59 Intake Total 3023.25 / 3823.25 2370.5 / 2570.5 Balance 3023.25 / 3823.25 2370.5 / 2570.5 General: Alert, Oriented x3, Cooperative HEENT: Atraumatic, PERRLA, EOMI, Normocephalic Neck: Supple, No JVD, Negative Carotid Bruits Lungs: Clear to auscultation, Normal air movement Cardiovascular: Regular rate, No murmurs Abdomen: Bowel Sounds Present, Soft, Non Tender Extremities: No edema, Capillary Refill Less than 3 Seconds Skin: Ulcer/ Wound - no purulent drainage. erythema and warmth improved. Musculoskeletal: No Tenderness to Palpation of Joints or Extremities Neurological: Cranial nerves II-XII grossly intact Psych/Mental Status: Normal Affect, Appropriate, Alert and oriented to time, place, person, mood and affect Microbiology Past 72 Hours 02/11/20 11:00 Wound - Leg Gram Stain - Final 02/11/20 11:00 Wound - Leg Wound Culture - Preliminary Staphylococcus aureus Streptococcus group B Gram positive charo 02/10/20 20:37 Blood Culture (Wb) - Anticubital Left Blood Culture - Preliminary No growth in 48 hours. 02/10/20 20:28 Blood Culture (Wb) - Left Hand Blood Culture - Preliminary No growth in 48 hours. 02/11/20 20:14 Urine, Clean Catch Urine Culture - Final Coag Negative Staph Laboratory Results 02/13/20 21:44: Vancomycin Trough 16.6 H Current Medications Acetaminophen (Tylenol) 650 mg PO Q6H PRN PRN PRN Reason: Pain Score 1-10/Temp > 100.7 F Last Admin: 02/12/20 14:45 Dose: 650 mg Documented by: Enoxaparin Sodium (Lovenox) 40 mg SC DAILY [facility] Last Admin: 02/14/20 09:20 Dose: Not Given Documented by: Ampicillin Sodium/Sulbactam (Sodium 3 gm/ Sodium Chloride) 112 mls @ 150 mls/hr IV Q6 [facility] Last Admin: 02/14/20 14:11 Dose: 150 mls/hr Documented by: Vancomycin IV Pharmacy to Dose (1 ea/ Sodium Chloride) 500 mls @ 250 mls/hr IV PRN PRN; Protocol PRN Reason: Rx to Dose Sodium Chloride () 250 mls @ 15 mls/hr IV .[id number] PRN PRN Reason: Saline Flush Last Infusion: 02/14/20 14:16 Dose: 0 mls/hr Documented by: Sodium Chloride () 250 mls @ 15 mls/hr IV .[id number] PRN PRN Reason: Additional IVPB Infusion Vancomycin HCl 1,500 mg/ (Sodium Chloride) 530 mls @ 250 mls/hr IV Q12H [facility] Last Infusion: 02/14/20 12:34 Dose: Infused Documented by: Lisinopril (Zestril) 10 mg PO DAILY [facility] Last Admin: 02/14/20 09:22 Dose: 10 mg Documented by: Melatonin (Melatonin) 3 mg PO QHS PRN PRN PRN Reason: INSOMNIA Last Admin: 02/13/20 21:32 Dose: 3 mg Documented by: Nutritional Formula (Lactose Free) (Ensure Enlive) 120 ml PO 4X/DAY [facility] Last Admin: 02/14/20 14:12 Dose: 120 ml Documented by: Ondansetron HCl (Zofran) 4 mg IV Q8H PRN PRN PRN Reason: NAUSEA/VOMITING Senna/Docusate Sodium (Senokot-S, Kathleen-Colace) 2 tablet PO BID PRN PRN PRN Reason: Constipation Sodium Chloride () 10 - 40 ml IV UD PRN PRN Reason: SALINE FLUSH Last Admin: 02/12/20 10:30 Dose: 10 ml Documented by: Discharge Diet: Low fat/ Low Cholesterol, 2000 mg Sodium Diet Discharge Activity: Return to Normal Activity, - - Wound dressings should be changed daily. Home Medications: Medications to take at Discharge Lisinopril [Zestril] 10 mg PO DAILY 12/15/16 Acetaminophen [Tylenol Tablet] 650 mg PO Q6H PRN PRN tab 02/14/20 Amoxicillin/Potassium Clav [Augmentin 875-125 Tablet] 1 ea PO BID #10 tab 02/14/20 Following Prescriptions Were Given to Patient: Amoxicillin/Potassium Clav [Augmentin 875-125 Tablet] 1 ea PO BID #10 tab Transmission Status: Received by [id number] Primary Care Physician: Anthony Vang MD [Primary Care Provider] - Please follow up with your Primary Care Physician in: 1-2 weeks Please Follow Up With: Wound care center When: 1 week Disposition: Home with Home Health Minutes spent on discharge:: 35 Patient Condition:: Stable Medical Necessity - Tobacco Use Smoking Status: Never smoker Meaningful Use Info Meaningful Use Diagnoses (Choose all that apply): None applicable <MarcoOz - Last Filed: 02/14/20 16:50> Discharge Date and Diagnosis - Secondary Discharge Diagnosis Chronic Problems: Chronic Problems Ulcer of right lower extremity with fat layer exposed (Chronic) Venous insufficiency of both lower extremities (Chronic) Ulcer of left lower extremity with fat layer exposed (Chronic) Stasis dermatitis of both legs (Chronic) Ulcer of right lower extremity, limited to breakdown of skin (Chronic) Noncompliance (Chronic) Edema of both legs (Chronic) Cellulitis of both lower extremities (Chronic) Ulcer of left lower leg (Chronic) Mental deficiency (Chronic) HTN (hypertension) (Chronic) Hospital Course and Treatment Consultations 02/10/20 22:30 Consult: Onc/Wound/train master Routine Comment: Summary of Care Provided: This patient was seen in conjunction with Antoine ZUNIGA. I have independently interviewed and examined the patient and reviewed pertinent history, examination findings, laboratory and plan of management. I have reviewed the note and agree with the documented findings with the few additional points. In brief, patient is 60-year-old gentleman, mild developmental delay/MRDD, itching/picking habit, prior history of MSSA is admitted with bilateral lower leg cellulitis. In ER patient appeared septic with leukocytosis, tachycardia and fever and was started on vancomycin and Unasyn. Later on antibiotic narrowed down to IV Unasyn. Wound culture shows MSSA and gram-positive charo. Patient is discharged on Augmentin to complete a total of 10 days. Discharge medication reconciliation done. Discharge follow-up instructions completed. Discharge process discussed with the patient and all questions were answered to patient's satisfaction. Total time spent, exact 35 minutes on discharge meds reconciliation, examination, coordination of care with nurses and ancillary staff, review of imaging and blood test and discussion with the patient on follow-up instructions I have discussed my assessment with Antoine ZUNIGA and orders have been reviewed. [] Objective: Seen and examined. Patient admitted with bilateral lower leg cellulitis. He also had recent excision of head melanoma. Patient has developmental delay, MRDD Physical exam General: Awake, cooperative. Answers simple questions appropriately HEENT: Atraumatic, PERRLA, EOMI, Normocephalic. Recent surgical scar over her scalp Oral: No Gingival or Mucosal Lesions/ Ulcerations Neck: Supple, No JVD, Negative Carotid Bruits Lungs: Air entry diminished in bilateral lung bases. No crepitation/rhonchi Cardiovascular: Regular rate, Regular Rhythm, Normal S1, Normal S2, No murmurs Abdomen: Bowel Sounds Present, Soft, Non Tender, Non-Distended : No renal angle tenderness. No suprapubic tenderness. Extremities: Mild pedal edema, Capillary Refill Less than 3 Seconds. Bilateral chronic venous insufficiency Skin: Cellulitis of bilateral lower legs, much improved. Superficial scabs on both lower legs. Recent melanoma excision on the scalp. Musculoskeletal: No Tenderness to Palpation of Joints or Extremities Neurological: Cranial nerves II-XII grossly intact, Deep Tendon Reflexes 2+/4 and Symmetrical, Neuro grossly intact Psych/Mental Status: Normal Affect, Appropriate. - Physical Exam Vitals/I&O's: Vital Signs Temp Pulse Resp BP Pulse Ox 98.3 F 77 16 116/68 98 02/14/20 12:29 02/14/20 12:29 02/14/20 12:29 02/14/20 12:29 02/14/20 12:29 Oxygen Delivery Method Room Air Weight: 220 lb 14.451 oz Body Mass Index (BMI) 32.5 Intake and Output for Last 24 Hours 02/12/20 02/13/20 02/14/20 23:59 23:59 23:59 Intake Total 3023.25 / 3823.25 2370.5 / 2570.5 2109.5 / 2109.5 Balance 3023.25 / 3823.25 2370.5 / 2570.5 2109.5 / 2109.5 Microbiology Past 72 Hours 02/11/20 11:00 Wound - Leg Gram Stain - Final 02/11/20 11:00 Wound - Leg Wound Culture - Preliminary Staphylococcus aureus Streptococcus group B Gram positive charo 02/10/20 20:37 Blood Culture (Wb) - Anticubital Left Blood Culture - Preliminary No growth in 48 hours. 02/10/20 20:28 Blood Culture (Wb) - Left Hand Blood Culture - Preliminary No growth in 48 hours. 02/11/20 20:14 Urine, Clean Catch Urine Culture - Final Coag Negative Staph Laboratory Results 02/13/20 21:44: Vancomycin Trough 16.6 H Inpatient E&M: 73084 Disch Hosp
--- NOTE | 2020-02-14 14:23 | NURSING ---
emily olson notified that pt will be discharged today.
--- NOTE | 2020-02-14 14:55 | PHA.DC.MR ---
Pharmacy Service has performed discharge medication reconciliation for this patient. The patient's discharge medication list was reviewed for discrepancies and discrepancies were resolved. Home Medications Lisinopril [Zestril] 10 mg PO DAILY 12/15/16 Acetaminophen [Tylenol Tablet] 650 mg PO Q6H PRN PRN tab 02/14/20 Amoxicillin/Potassium Clav [Augmentin 875-125 Tablet] 1 ea PO BID #10 tab 02/14/20
--- NOTE | 2020-02-15 14:32 | CASEMGMT ---
GLADIS CM DC PHONE CALL DC DATE: 02/14/2020 DC DISPOSITION: Home DC DIAGNOSIS: Sepsis, cellulitis LACE/STRATA: 04/09 F/U APPTS MADE PRIOR TO DC: no Attempted call to patient's phone. No answer and no name identifier on messaging. Call to [facility]- lubna Hanks, they will do start of care on 02/16/2020 and they have spoken with patient and family to confirm this. Demario SPENCERN RN ACM
== END 2020-02-14 15:40 | disposition home health service (06) | DRG 603 ==
LOC: ED 21:26 → MS3 21:52
PROVIDERS: Hospitalist; Physician Assistant; Admitting Provider Hospitalist; Emergency Provider Emergency Medicine; PCP Family Medicine; Visit Provider Internal Medicine
DX: L03.115 Cellulitis of right lower limb (principal); L03.116 Cellulitis of left lower limb; I87.2 Venous insufficiency (chronic) (peripheral); I89.0 Lymphedema, not elsewhere classified; R60.0 Localized edema; I10 Essential (primary) hypertension; R62.50 Unspecified lack of expected normal physiological development in childhood; E66.9 Obesity, unspecified; C43.4 Malignant melanoma of scalp and neck; Z79.899 Other long term (current) drug therapy; Z68.32 Body mass index [BMI] 32.0-32.9, adult; R73.9 Hyperglycemia, unspecified; A49.01 Methicillin susceptible Staphylococcus aureus infection, unspecified site; B95.1 Streptococcus, group B, as the cause of diseases classified elsewhere; Z91.5 Personal history of self-harm
CPT/HCPCS: 36415; 71045; 80048; 80053; 80202; 81001; 83036; 83605; 85025; 87040; 87070; 87077; 87086; 87088; 87186; 87205; 87640; 97110; 97162; 97166; 97530; 97802; 99285; J7040; J7050; A4216; J0295

== ENCOUNTER 2020-03-28 18:34 | Inpatient (IN) | payer MEDICARE, SELFPAY ==
[2020-03-28 18:35] VITALS: BP 127/74; PULSE 94; RESP 16; TEMP 36.7; O2SAT 98; BMI 32.9
--- NOTE | 2020-03-28 19:39 | ED.VISSUMM ---
- ER Visit Summary Date of Service: 03/28/20 Chief Complaint: [Concern for cellulitis to both lower extremities] History of Present Illness: The patient is a 60 M [presents to the emergency department with his [id number]. Patient has history of cellulitis to both lower extremities. He was last admitted about a month ago for the same. Patient apparently gets sores on his legs and then he picks at them and they become infected. He is not had fever, chills, or sweats. Patient himself somewhat of a poor historian. Visiting nurse came by today and noted that the legs were getting increasingly red so they contacted the primary care physician who advised him to come to the emergency department for evaluation. Patient has history of hypertension.] Physical Examination: [HEENT-PERRLA, EOMI. Cranial nerves II through XII grossly intact. TMs clear. Mucous membranes moist. No adenopathy. Cardiovascular-regular rate and rhythm without murmur or ectopy Lungs-clear to auscultation, chest wall stable without crepitus or subcu emphysema Abdomen-normoactive bowel sounds, soft, nontender, no rebound or rigidity, no peritoneal signs. Extremities-intact ?4, normal range of motion, normal pulses. Patient has erythema to both lower extremities from just below the knee to about the ankles. Patient has open wounds on both legs. There are cellulitic changes. They are warm to the touch. Several of the wounds are weeping.] Test Results: [CBC with differential obtained showed a white count of 18.4 hemoglobin 12, hematocrit 38, placed 245. Chemistries unremarkable. Lactate was 0.9.] Emergency Department Course and Treatment: [IV line established on arrival. Patient was medicated with vancomycin 1.5 g IV as well as Unasyn 3 g IV.] Treatment Plan: [Admit for IV antibiotics] Disposition: [Admit] Impression: [Cellulitis bilateral lower extremities] This note was generated with [employer] dictation software. It may contain incorrect words, spelling, and punctuation that were not noted in review of the chart prior to signing ED Disposition - Plan for ED Patient: Referrals: Anthony Vang MD [Primary Care Provider] -
[2020-03-28 20:35] LABS: Absolute Lymphocyte Count 12.94 X10^3/uL (0.83-4.51); Absolute Neutrophil Count 4.4 X10^3/uL (2.0-7.7); Basophil# 0.06 X10^3/uL; Basophil% 0.3 % (0-1); Eosinophils% 1.1 % (0-5); Hematocrit 38.6 % (40-54); Hemoglobin 12.4 g/dL (13.0-16.5); Lymphocyte # 12.94 X10^3/ul (4.0); Lymphocyte % 70.3 % (19-41); Mean Corp Hgb Conc 32.1 g/dL (32-36); Mean Corpuscular Hgb 30.2 pg (27.0-32.0); Mean Corpuscular Volume 94.1 fL (80-94); Mean Platelet Vol. 12.4 fl (6.2-12.0); Monocyte# 0.81 X10^3/uL; Monocyte% 4.4 % (0-10); NRBC Flagged by Analyzer 0 % (0-5); Neutrophil # 4.37 X10^3/uL (2.7-7.7); Neutrophil % 23.8 % (47-70); POSITIVE DIFFERENTIAL YES; Platelet Count 245 K/mm3 (150-450); RBC Distribution Width SD 48.3 fl (35.1-43.9); White Blood Count 18.4 K/mm3 (4.4-11.0)
[2020-03-28 20:38] LABS: Differential Indicated SCAN CRITERIA MET
[2020-03-28 20:47] LABS: Anion Gap 4 (5-15); BUN 14 mg/dL (7-18); BUN/Creat Ratio 17.3 RATIO (10-20); Calcium,Total 8.9 mg/dL (8.5-10.1); Chloride 110 mmol/L (98-107); Creatinine, Serum 0.81 mg/dL (0.70-1.30); EST Glomerular Filtration Rate 103 mL/min (>60); Est Glom Filt Rate - Afr Amer 124 mL/min (>60); Estimated Creatinine Clearance 95.77 ml/min; Glucose 86 mg/dL (74-106); Potassium 4.6 mmol/L (3.5-5.1); Sodium Level 141 mmol/L (136-145)
[2020-03-28 20:51] LABS: Lactic Acid 0.9 mmol/L (0.4-1.9)
[2020-03-28 21:24] VITALS: BP 145/87; PULSE 77; RESP 16; TEMP 36.6; O2SAT 96
--- NOTE | 2020-03-28 21:40 | PCM.HP.STD ---
Problem List (1) Venous insufficiency of both lower extremities Status: Chronic (2) Stasis dermatitis of both legs Status: Chronic (3) Noncompliance Status: Chronic (4) HTN (hypertension) Status: Chronic Qualifiers: History of Present Illness Date of Admission: 03/28/20 Chief Complaint: Worsening redness and swelling of both legs. The patient is a 60 year old M with past medical history as mentioned above including history of recurrent chronic bilateral lower extremity cellulitis secondary to chronic bilateral venous sufficiency was sent to the emergency department by his PCP because of concern of recurrent bilateral lower extremity cellulitis. Patient's visiting nurse came in today and noted that both legs were getting increasingly red and swollen more prominent on the left leg and she contacted the patient's PCP who requested them to come to the emergency department for evaluation. Patient denies any fever or chills. He denied leg pain. The patient himself thinks that his legs are not more swollen or red than usual. His kqerae-gg-hij who was at the bedside thinks that his legs are more swollen and red than usual. Apparently, patient has been picking on both legs. He had a history of MRDD with intellectual disabilities. He had a history of hypertension and he has been on lisinopril and his brother has been under control. He had a history of bilateral extremity venous insufficiency and lymphedema with recurrent cellulitis and frequent admissions for the same problem. In the emergency department, his vital signs were stable. His routine blood work was remarkable for leukocytosis but his WBC has been elevated over the last several months. Patient was admitted back on February, for the same problem and wound culture revealed MSSA, Streptococcus agalactiae and corynebacterium. He is being admitted for recurrent bilateral lower extremity cellulitis more prominent on the left lower extremity. Past Medical History Past Medical History (Chronic Problems): Chronic Problems Ulcer of right lower extremity with fat layer exposed (Chronic) Venous insufficiency of both lower extremities (Chronic) Ulcer of left lower extremity with fat layer exposed (Chronic) Stasis dermatitis of both legs (Chronic) Ulcer of right lower extremity, limited to breakdown of skin (Chronic) Noncompliance (Chronic) Edema of both legs (Chronic) Cellulitis of both lower extremities (Chronic) Ulcer of left lower leg (Chronic) Mental deficiency (Chronic) HTN (hypertension) (Chronic) Allergies No Known Allergies Allergy (Verified 03/28/20 18:37) Home Medications: Ambulatory Orders Medication Instructions Recorded Lisinopril [Zestril] 10 mg PO DAILY 12/15/16 Surgical History: tonsillectomy Psychiatric History: - - MRDD Lives: With Family Smoking Status: Never smoker Alcohol: None Drugs: None - *Family History Paternal History Items: Cancer, - - No heart disease. Patient's father is alive, aged 90, and healthy. Maternal History Items: Heart Disease, Stroke, - - History of cardiac disease Review of Systems Constitutional: Denies: Anorexia, Chills, Fever, Weakness Eyes: Denies: Blurred vision, Double vision, Drainage, Redness HEENT: Denies: Difficulty Hearing, Ear Pain, Eye Pain, Nasal Congestion, Sore Throat Cardiovascular: Denies: Chest Pain, Chest Pressure, Edema, Heaviness, Light Headedness, Palpitations, Syncope Respiratory: Denies: Cough, Hemoptysis, Pleuritic Pain, Shortness of Breath, Sputum production, Wheezing Gastrointestinal: Denies: Abdominal Pain, Constipation, Diarrhea, Nausea, Vomiting Genitourinary: Denies: Dysuria, Frequency, Hematuria Musculoskeletal: Denies: Arm Pain, Back Pain, Foot Pain Skin: Denies: Dryness, Rash Neurological: Denies: Balance problems, Blurred vision, Double vision, Slurred speech, Confusion, Headaches, Numbness Psychiatric: Denies: Anxiety, Depression Endocrine: Denies: Change in Body Habitus, Polydipsia, Polyuria VTE Information - Inpt Only VTE Present on Admission: No VTE Mechan Device Prophylaxis: None VTE Pharm Prophylaxis ordered?: Yes - Physical Exam Vitals/I&O's: Vital Signs Temp Pulse Resp BP Pulse Ox 97.8 F 77 16 145/87 H 96 03/28/20 21:24 03/28/20 21:24 03/28/20 21:24 03/28/20 21:24 03/28/20 21:24 Oxygen Delivery Method Room Air Weight: 223 lb Body Mass Index (BMI) 32.9 Intake and Output for Last 24 Hours 03/26/20 03/27/20 03/28/20 23:59 23:59 23:59 Intake Total 112 / 112 Balance 112 / 112 General: Alert, Oriented x3, Cooperative, No apparent distress HEENT: Atraumatic, PERRLA, EOMI, Normocephalic Oral: Moist Mucosa, No Gingival or Mucosal Lesions/ Ulcerations Neck: Supple, No JVD, Negative Carotid Bruits, Trachea Midline, Thyroid Normal Size and Texture Lungs: Clear to auscultation, Normal air movement, No rhonchi, No wheeze, No rales Cardiovascular: Regular rate, Regular Rhythm, Normal S1, Normal S2, PMI Normal Abdomen: Bowel Sounds Present, Soft, Non Tender, Non-Distended, No Hepato-splenomegaly Extremities: No clubbing, No cyanosis, Edema, - - Left leg: Significant erythema extending from just below her left knee down to the left ankle with swelling, 2 small superficial ulcers on the lateral aspect of the left leg, minimal oozing. Right leg: Mild erythema and swelling on the middle of the right leg, no open wounds. Skin: No rashes, Ulcer/ Wound Lymphatic: No Cervical, Supraclavicular, or Inguinal Adenopathy Neurological: Cranial nerves II-XII grossly intact, Motor Exam 5/5 strength throughout Psych/Mental Status: Normal Affect, Appropriate Laboratory Results 03/28/20 19:55: WBC 18.4 H, RBC 4.10 L, Hgb 12.4 L, Hct 38.6 L, MCV 94.1 H, MCH 30.2, MCHC 32.1, RDW Std Deviation 48.3 H, RDW Coeff of Heath 14.0, Plt Count 245, MPV 12.4 H, Immature Gran % (Auto) 0.100, Neut % (Auto) 23.8 L, Lymph % (Auto) 70.3 H, [place] % (Auto) 4.4, Eos % (Auto) 1.1, Baso % (Auto) 0.3, Absolute Neuts (auto) 4.4, Absolute Lymphs (auto) 12.94 H, Nucleated RBC % 0, Differential Comment 03/28/20 19:55: Sodium 141, Potassium 4.6, Chloride 110 H, Carbon Dioxide 27.0, Anion Gap 4 L, BUN 14, Creatinine 0.81, Estim Creat Clear Calc 95.77, Est GFR (MDRD) Af Amer 124, Est GFR (MDRD) Non-Af 103, BUN/Creatinine Ratio 17.3, Glucose 86, Calcium 8.9 03/28/20 19:55: Lactic Acid 0.9 Current Medications Vancomycin HCl 1,500 mg/ (Sodium Chloride) 530 mls @ 250 mls/hr IV X1 ONE Stop: 03/28/20 22:07 Last Admin: 03/28/20 21:18 Dose: 250 mls/hr Documented by: Assessment/Plan All Active Problems Cellulitis of lower extremity (Acute) This is a 60 years old male patient presented to the emergency room because of worsening bilateral leg erythema and swelling in the setting of chronic bilateral lower extremity venous sufficiency and chronic cellulitis, found to have recurrent bilateral lower extremity cellulitis more prominent on the left leg and is being admitted for treatment. #1 recurrent bilateral lower extremity cellulitis: More prominent on the left leg, in the context of history of chronic venous sufficiency and recurrent cellulitis. He does have leukocytosis but has been chronic. Lactic acid was normal. No evidence of sepsis or severe sepsis. Last wound culture from February, reviewed, revealed MSSA, Streptococcus agalactiae and corynebacterium. [facility], wound culture, blood culture, wound MRSA screen, start IV Unasyn and vancomycin, Tylenol as needed, Zofran as needed, repeat CBC and BMP tomorrow morning, wound care nurse consult. #2 hypertension: Blood pressure stable, continue lisinopril. #3 MRDD: Stable, supportive care. #4 DVT prophylaxis: Subcu Lovenox. This note was generated with [employer] dictation software. It may contain incorrect words, spelling, and punctuation that were not noted in checking the note before signing. Inpatient E&M: 22372 Init Hosp L2
[2020-03-28 22:11] VITALS: BMI 32.4
[2020-03-28 22:15] VITALS: BMI 32.4
[2020-03-28 22:19] VITALS: BP 125/70; PULSE 64; RESP 18; TEMP 36.8; O2SAT 97
[2020-03-28 22:50] VITALS: O2SAT 97
[2020-03-29] VITALS (7 sets, daily range): BP systolic 111–129; BP diastolic 65–79; PULSE 58–72; RESP 12–18; TEMP 36.4–36.6; O2SAT 98–100
--- NOTE | 2020-03-29 00:04 | PCM.RX.CS ---
Consult Pharmacy has been consulted to manage selected antiobiotic: Vancomycin Type of Consult: New start Suspected Infection: Skin/Soft tissue Labs: Sodium 141 mmol/L (136-145) 03/28/20 19:55 Potassium 4.6 mmol/L (3.5-5.1) 03/28/20 19:55 Chloride 110 mmol/L (98-107) H 03/28/20 19:55 Carbon Dioxide 27.0 mmol/L (21.0-32.0) 03/28/20 19:55 Anion Gap 4 (5-15) L 03/28/20 19:55 BUN 14 mg/dL (7-18) 03/28/20 19:55 Creatinine 0.81 mg/dL (0.70-1.30) 03/28/20 19:55 Est GFR (MDRD) Af Amer 124 mL/min (>60) 03/28/20 19:55 Est GFR (MDRD) Non-Af 103 mL/min (>60) 03/28/20 19:55 BUN/Creatinine Ratio 17.3 RATIO (-) 03/28/20 19:55 Glucose 86 mg/dL (74-106) 03/28/20 19:55 Weight used for dosin.6 kg Estimated Creatinine Clearance: 111.4 Goal Trough: 15-20 mcg/mL Pharmacy Plan for Drug Dosing: Pharmacy Service will continue to monitor and adjust dosing as required. Medications Vancomycin HCl 1,250 mg/ (Sodium Chloride) 275 mls @ 167 mls/hr IV Q8H [facility] Discontinued Medications Vancomycin HCl 1,500 mg/ (Sodium Chloride) 530 mls @ 250 mls/hr IV X1 ONE Stop: 03/28/20 22:07 Last Admin: 03/28/20 23:42 Dose: Infused Documented by: Follow-Up Labs: Trough Vancomycin Labs to be done on [date and time ordered]: 03/29 @2030
[2020-03-29 00:54] LABS: M R Staph aureus DNA By PCR Negative (Negative)
[2020-03-29 00:55] LABS: Probe Check PASS; Specimen Processing Control PASS
[2020-03-29 00:57] LABS: Staph aureus DNA By PCR POSITIVE (Negative)
[2020-03-29] MEDS: Lisinopril 10 MG Tablet PO (09:34)
--- NOTE | 2020-03-29 11:00 | NURSING ---
wound photo: left lower leg
--- NOTE | 2020-03-29 11:01 | NURSING ---
wound photo: right lower leg
--- NOTE | 2020-03-29 11:02 | NURSING ---
wound photo: forehead
--- NOTE | 2020-03-29 11:16 | PN_ITS ---
Subjective: Patient seen and examined. He has been managed for bilateral lower extremity cellulitis. He has no complaints this morning and felt well. Review of symptoms otherwise negative. Labs and vitals reviewed. He has remained hemodynamically stable. Vitals/I&O's: Vital Signs Temp Pulse Resp BP Pulse Ox 97.6 F L 72 16 115/69 100 03/29/20 09:30 03/29/20 09:30 03/29/20 09:30 03/29/20 09:30 03/29/20 09:30 Oxygen Delivery Method Room Air Weight: 219 lb 9.286 oz Body Mass Index (BMI) 32.4 Intake and Output for Last 24 Hours 03/27/20 03/28/20 03/29/20 23:59 23:59 23:59 Intake Total 642 / 642 587 / 587 Output Total 350 / 350 Balance 642 / 642 237 / 237 General: Alert, Oriented x3, Cooperative, No apparent distress HEENT: Atraumatic, PERRLA, EOMI, Normocephalic, - - dressing on forehead, from skin graft for melanoma, according to patient Oral: Dry Mucosa Neck: Supple, No JVD, Negative Carotid Bruits, Negative Hepatojugular Reflux, No Nodes Lungs: Clear to auscultation, Normal air movement, No rhonchi, No wheeze Cardiovascular: Regular rate, Regular Rhythm, Normal S1, Normal S2, No murmurs Abdomen: Bowel Sounds Present, Soft, Non Tender, Non-Distended, No Hepato- splenomegaly Extremities: No clubbing, No cyanosis, No edema, Capillary Refill Less than 3 Seconds Skin: - - bilateral LE erythema up to shins, with superficial ulceration on shins. Legs wrapped in bandage. Musculoskeletal: No Tenderness to Palpation of Joints or Extremities Lymphatic: No Cervical, Supraclavicular, or Inguinal Adenopathy Neurological: Cranial nerves II-XII grossly intact, Neuro grossly intact, Motor Exam 5/5 strength throughout Psych/Mental Status: Normal Affect Microbiology Past 72 Hours 03/28/20 22:45 Wound - Leg Gram Stain - Final Laboratory Results 03/28/20 19:55: WBC 18.4 H, RBC 4.10 L, Hgb 12.4 L, Hct 38.6 L, MCV 94.1 H, MCH 30.2, MCHC 32.1, RDW Std Deviation 48.3 H, RDW Coeff of Heath 14.0, Plt Count 245, MPV 12.4 H, Immature Gran % (Auto) 0.100, Neut % (Auto) 23.8 L, Lymph % (Auto) 70.3 H, Mcnairy % (Auto) 4.4, Eos % (Auto) 1.1, Baso % (Auto) 0.3, Absolute Neuts (auto) 4.4, Absolute Lymphs (auto) 12.94 H, Nucleated RBC % 0, Differential Comment 03/28/20 19:55: Sodium 141, Potassium 4.6, Chloride 110 H, Carbon Dioxide 27.0, Anion Gap 4 L, BUN 14, Creatinine 0.81, Estim Creat Clear Calc 95.77, Est GFR (MDRD) Af Amer 124, Est GFR (MDRD) Non-Af 103, BUN/Creatinine Ratio 17.3, Glucose 86, Calcium 8.9 03/28/20 19:55: Lactic Acid 0.9 03/28/20 22:45: S.aureus Protein A PCR POSITIVE H, MRSA (PCR) Negative Current Medications Acetaminophen (Acetaminophen 325 Mg Tablet) 650 mg PO Q6H PRN PRN PRN Reason: Pain Score 1-10/Temp > 100.7 F Enoxaparin Sodium (Enoxaparin 40 Mg/0.4 Ml Syringe) 40 mg SC DAILY [facility] Last Admin: 03/29/20 09:36 Dose: Not Given Documented by: Ampicillin Sodium/Sulbactam (Sodium 3 gm/ Sodium Chloride) 112 mls @ 150 mls/hr IV Q8 [facility] Last Infusion: 03/29/20 07:43 Dose: Infused Documented by: Vancomycin HCl 750 mg/ Sodium (Chloride) 265 mls @ 250 mls/hr IV PRN PRN PRN Reason: RX TO DOSE Sodium Chloride () 250 mls @ 15 mls/hr IV .[id number] PRN PRN Reason: Saline Flush Sodium Chloride () 250 mls @ 15 mls/hr IV .[id number] PRN PRN Reason: Additional IVPB Infusion Vancomycin HCl 1,250 mg/ (Sodium Chloride) 275 mls @ 167 mls/hr IV Q8H [facility] Last Infusion: 03/29/20 06:59 Dose: Infused Documented by: Lisinopril (Lisinopril 10 Mg Tablet) 10 mg PO DAILY [facility] Last Admin: 03/29/20 09:34 Dose: 10 mg Documented by: Ondansetron HCl (Ondansetron 4 Mg/2 Ml Vial) 4 mg IV Q8H PRN PRN PRN Reason: NAUSEA/VOMITING Senna/Docusate Sodium (Senna/Docusate Sodium 1 Tablet) 2 tablet PO BID PRN PRN PRN Reason: Constipation Sodium Chloride (0.9% Saline Lock 10 Ml Syringe) 10 - 40 ml IV UD PRN PRN Reason: SALINE FLUSH Zolpidem Tartrate (Zolpidem Tartrate 5 Mg Tablet) 5 mg PO QHS PRN PRN PRN Reason: INSOMNIA STROKE Vital Signs/Narrative: Vital Signs Temp Pulse Resp BP Pulse Ox 03/29/20 09:30 97.6 F L 72 16 115/69 100 03/29/20 08:48 97.8 F 62 12 129/77 H 100 03/29/20 07:34 98 Medical Necessity - Tobacco Use Smoking Status: Never smoker Assessment/Plan All Active Problems Cellulitis of lower extremity (Acute) # Bilateral recurernt LE cellulitis * still has redness of the LEs * on IV vancomycin and unasyn * wound care on baord * blood cultures pending * wound gram stain showed no wbcs or organisms seen * wbc was elevated at 18.4 on admission, results pending today * Staph aureus PCR positive, but MRSA screen engative * will switch antibiotics to IV cefazolin. Start hypertension: Lisinopril #History of melanoma status post skin graft: Has dressing on his forehead. Stable. #MRDD: Stable [facility]: 34887 Subs Hosp L2
--- NOTE | 2020-03-29 11:54 | NURSING ---
Dr. Jacob is aware that pt refused am labs. No further orders.
--- NOTE | 2020-03-29 13:39 | CASEMGMT ---
GLADIS WILLSON Face to Face with patient for initial transition planning/care coordination assessment. GLADIS WILLSON introduced self and role at [facility]. Patient sitting in chair, alert and oriented. Patient willing to participate in assessment and is able to answer all questions appropriately. Care providers, pharmacy, and demographics verified. Patient to discharge home with resumption of HHC with [facility]. Patient states he has no further needs or concerns at this time. CM to follow for discharge planning needs that may arise. GLADIS WILLSON updated ELSA Infante regarding request for placement. PCP: Ciera Specialists: none [facility]erred Pharm[facility] Pres[facility] Benefit: yes Living Will/HPOA: none LNOK: father, brother, DIL Living Arrangements: Patient lives with father in house with bed and bath on main level. Patient states he is independent at home. Transportation: Brother DME/HHC: Patient denies DME . Patient is active with [facility] for custodial. Sister in law Arthur assists with dressing changes daily. GLADIS WILLSON call [facility] and sent updated clinicals and resumption of care order. Disposition Plan: Patient to discharge home with resumption of HHC, family support, and follow-up plans in place.
[2020-03-29] MEDS: Cefazolin 1 GM/50 ML BAG IV ×2 (15:18→21:21)
[2020-03-30 01:43] VITALS: BP 132/81; PULSE 63; RESP 18; TEMP 36.9; O2SAT 100
[2020-03-30] MEDS: Cefazolin 1 GM/50 ML BAG IV ×2 (05:26→13:02)
[2020-03-30 07:17] VITALS: O2SAT 96
[2020-03-30 08:25] VITALS: BP 143/80; PULSE 68; RESP 20; TEMP 36.8; O2SAT 100
[2020-03-30] MEDS: Lisinopril 10 MG Tablet PO (08:27)
--- NOTE | 2020-03-30 12:00 | NURSING ---
Spoke to Arthur, sister in law, on the phone. Notified her that patient not agreeable to lab draws. She states she will call and have discussion with patient.
--- NOTE | 2020-03-30 12:30 | PCM.DC ---
- Discharge Diagnoses Current Active Problems: Current Active and Chronic Problems Venous insufficiency of both lower extremities (Chronic) Stasis dermatitis of both legs (Chronic) Noncompliance (Chronic) HTN (hypertension) (Chronic) You will use the following diet at home:: Cardiac Your food should be the consistency of: Regular Your liquids should be the consistency of: Regular/Thin Discharge Activity: Return to Normal Activity Weight Bearing Status: Weight bearing as tolerated Call your doctor if your incision/area has: Continuous Slow Oozing, Increased Pain/ Swelling, Increased Redness, Foul Smelling Discharge Call your doctor if you observe: Fever of 101 or Higher, Shortness of breath, Dizziness, Fainting spells Instructions: ED Cellulitis Allergies/Adverse Reactions: Allergies No Known Allergies Allergy (Verified 03/28/20 18:37) Medications to take at Discharge Lisinopril [Zestril] 10 mg PO DAILY 12/15/16 Doxycycline 100 mg PO BID #20 cap 03/30/20 The following prescriptions were given: Doxycycline 100 mg PO BID #20 cap Transmission Status: Pending to [id number] Primary Care Physician: Anthony Vang MD [Primary Care Provider] - Please follow up with your Primary Care Physician in: 1-2 weeks Test Results: Test results from this visit will be discussed in further detail at your follow-up appointment, if applicable. Please Follow Up With: wound clinic When: 1-2 weeks Proposed Discharge Date: 03/30/20
--- NOTE | 2020-03-30 12:35 | PCM.DC.SUM ---
Discharge Date and Diagnosis Date of Admission: 02/10/20 Date of Discharge: 03/30/20 - Primary Discharge Diagnosis Acute Problems: cellulitis of lower extremities - Secondary Discharge Diagnosis Chronic Problems: Chronic Problems Ulcer of right lower extremity with fat layer exposed (Chronic) Venous insufficiency of both lower extremities (Chronic) Ulcer of left lower extremity with fat layer exposed (Chronic) Stasis dermatitis of both legs (Chronic) Ulcer of right lower extremity, limited to breakdown of skin (Chronic) Noncompliance (Chronic) Edema of both legs (Chronic) Cellulitis of both lower extremities (Chronic) Ulcer of left lower leg (Chronic) Mental deficiency (Chronic) HTN (hypertension) (Chronic) Hospital Course and Treatment Consultations 03/28/20 22:08 Consult: Onc/Wound/photographic double Routine Comment: Operations: None Procedures: None Summary of Care Provided: The patient is a 60 year old M with a past medical history as outlined including recurrent bilateral lower extremity cellulitis due to bilateral lower extremity venous insufficiency. He was admitted through the ED on 03/28/2020 by his PCP on account of concerns for lower extremity cellulitis. He rested nurse went see him and noted that both legs were increasingly red and swollen and so she contacted the patient's PCP who asked him to come into the ED. He denied any fever or chills or leg pain) think that his legs were more swollen or red. Patient also has been picking at both legs. He had a history of MRDD with intellectual disabilities as well as a history of hypertension and lower extremity lymphedema. CBC showed elevated white cell count but his white cell count has been elevated since 2017. Was admitted and managed for recurrent bilateral lower extremity cellulitis. He was started on IV vancomycin and Zosyn. Wound cultures grew staph aureus and MRSA PCR was negative. Antibiotics were therefore narrowed down to IV cefazolin. Patient remained stable and redness and swelling improved. He was discharged home on 03/30/2020 with a 10-day course of p.o. doxycycline 100 mg twice daily. He is to follow-up with his primary care doctor and is also to follow-up with the wound care center. Patient seen and examined prior to discharge. He expressed desire to go home and had no complaints. Review of symptoms otherwise negative. Labs and vitals reviewed. Home medication reviewed and reconciled. O/E: Vital Signs Temp Pulse Resp BP Pulse Ox 98.3 F 68 20 H 143/80 H 100 03/30/20 08:25 03/30/20 08:25 03/30/20 08:25 03/30/20 08:25 03/30/20 08:25 General: Alert, Oriented x3, Cooperative, No apparent distress HEENT: Atraumatic, PERRLA, EOMI, Normocephalic, - - dressing on forehead, from surgery for melanoma, Oral: Dry Mucosa Neck: Supple, No JVD, Negative Carotid Bruits, Negative Hepatojugular Reflux, No Nodes Lungs: Clear to auscultation, Normal air movement, No rhonchi, No wheeze Cardiovascular: Regular rate, Regular Rhythm, Normal S1, Normal S2, No murmurs Abdomen: Bowel Sounds Present, Soft, Non Tender, Non-Distended, No Hepato-splenomegaly Extremities: No clubbing, No cyanosis, No edema, Capillary Refill Less than 3 Seconds Skin: - - bilateral LE erythema up to shins, with superficial ulceration on shins. Legs wrapped in bandage. Musculoskeletal: No Tenderness to Palpation of Joints or Extremities Lymphatic: No Cervical, Supraclavicular, or Inguinal Adenopathy Neurological: Cranial nerves II-XII grossly intact, Neuro grossly intact, Motor Exam 5/5 strength throughout Psych/Mental Status: Normal Affect Plan is for discharge home today. - Physical Exam Vitals/I&O's: Vital Signs Temp Pulse Resp BP Pulse Ox 98.3 F 68 20 H 143/80 H 100 03/30/20 08:25 03/30/20 08:25 03/30/20 08:25 03/30/20 08:25 03/30/20 08:25 Oxygen Delivery Method Room Air Weight: 219 lb 9.286 oz Body Mass Index (BMI) 32.4 Intake and Output for Last 24 Hours 03/28/20 03/29/20 03/30/20 23:59 23:59 23:59 Intake Total 642 / 642 1607 / 1967 860 / 860 Output Total 600 / 900 600 / 600 Balance 642 / 642 1007 / 1067 260 / 260 Microbiology Past 72 Hours 03/28/20 22:45 Wound - Leg Gram Stain - Final 03/28/20 22:45 Wound - Leg Wound Culture - Final Staphylococcus aureus Current Medications Acetaminophen (Acetaminophen 325 Mg Tablet) 650 mg PO Q6H PRN PRN PRN Reason: Pain Score 1-10/Temp > 100.7 F Enoxaparin Sodium (Enoxaparin 40 Mg/0.4 Ml Syringe) 40 mg SC DAILY [facility] Last Admin: 03/30/20 08:27 Dose: Not Given Documented by: Sodium Chloride () 250 mls @ 15 mls/hr IV .[id number] PRN PRN Reason: Saline Flush Sodium Chloride () 250 mls @ 15 mls/hr IV .[id number] PRN PRN Reason: Additional IVPB Infusion Cefazolin Sodium () 1 gm in 50 mls @ 100 mls/hr IV Q8 [facility] Last Infusion: 03/30/20 05:56 Dose: Infused Documented by: Lisinopril (Lisinopril 10 Mg Tablet) 10 mg PO DAILY [facility] Last Admin: 03/30/20 08:27 Dose: 10 mg Documented by: Ondansetron HCl (Ondansetron 4 Mg/2 Ml Vial) 4 mg IV Q8H PRN PRN PRN Reason: NAUSEA/VOMITING Senna/Docusate Sodium (Senna/Docusate Sodium 1 Tablet) 2 tablet PO BID PRN PRN PRN Reason: Constipation Sodium Chloride (0.9% Saline Lock 10 Ml Syringe) 10 - 40 ml IV UD PRN PRN Reason: SALINE FLUSH Zolpidem Tartrate (Zolpidem Tartrate 5 Mg Tablet) 5 mg PO QHS PRN PRN PRN Reason: INSOMNIA Discharge Diet: Low fat/ Low Cholesterol Discharge Activity: Return to Normal Activity Weight Bearing Status: Weight bearing as tolerated Call your doctor if your incision/area has: Continuous Slow Oozing, Increased Pain/ Swelling, Increased Redness, Foul Smelling Discharge Call your doctor if you observe: Fever of 101 or Higher, Shortness of breath, Dizziness, Fainting spells Home Medications: Medications to take at Discharge Lisinopril [Zestril] 10 mg PO DAILY 12/15/16 Doxycycline 100 mg PO BID #20 cap 03/30/20 Following Prescriptions Were Given to Patient: Doxycycline 100 mg PO BID #20 cap Transmission Status: Received by [id number] Primary Care Physician: Anthony Vang MD [Primary Care Provider] - Please follow up with your Primary Care Physician in: 1-2 weeks Please Follow Up With: wound clinic When: 1-2 weeks Patient Instructions: ED Cellulitis Disposition: Home Minutes spent on discharge:: 40 Medical Necessity - Tobacco Use Smoking Status: Never smoker Meaningful Use Info Meaningful Use Diagnoses (Choose all that apply): None applicable Inpatient E&M: 03999 Disch Hosp
[2020-03-30 12:58] LABS: Hematocrit 42.6 % (40-54); Hemoglobin 13.9 g/dL (13.0-16.5); Mean Corp Hgb Conc 32.6 g/dL (32-36); Mean Corpuscular Hgb 30.8 pg (27.0-32.0); Mean Corpuscular Volume 94.2 fL (80-94); Mean Platelet Vol. 12.5 fl (6.2-12.0); Platelet Count 232 K/mm3 (150-450); RBC Distribution Width CV 13.7 % (11.6-14.6); RBC Distribution Width SD 47.5 fl (35.1-43.9); Red Blood Count 4.52 M/mm3 (4.6-6.2); White Blood Count 18.9 K/mm3 (4.4-11.0)
[2020-03-30 13:11] LABS: Anion Gap 6 (5-15); BUN 13 mg/dL (7-18); BUN/Creat Ratio 13.7 RATIO (10-20); Calcium,Total 8.7 mg/dL (8.5-10.1); Chloride 107 mmol/L (98-107); Creatinine, Serum 0.95 mg/dL (0.70-1.30); EST Glomerular Filtration Rate 86 mL/min (>60); Est Glom Filt Rate - Afr Amer 104 mL/min (>60); Estimated Creatinine Clearance 81.66 ml/min; Glucose 108 mg/dL (74-106); Potassium 4.3 mmol/L (3.5-5.1); Sodium Level 140 mmol/L (136-145)
[2020-03-30 14:34] VITALS: BP 144/57; PULSE 70; RESP 20; TEMP 36.8; O2SAT 100
--- NOTE | 2020-04-01 16:04 | CASEMGMT ---
GLADIS WILLSON Discharge Follow-up Phone Call: CARLOS: Rosenda Strata: 3 Call Date: 04/01/20 Discharge Date: 03/30/20 Time of Call: 1605 Duration: 2 min Admitting Diagnosis: Recurrent bilateral lower ext cellulitis RN ANAMIKA completed follow-up phone call after recent hospitalization. Brother listed as contact center professional and states patient is doing well. Brother Huy had no questions regarding discharge instructions and was able to fill prescriptions without any issues. Patient resumed services with [facility] with long-term. Brother had no further questions or concerns at this time.
== END 2020-03-30 16:36 | disposition home or self-care (01) | DRG 603 ==
LOC: ED 20:12 → MS3 22:11
PROVIDERS: Admitting Provider Hospitalist; Emergency Provider Emergency Medicine; PCP Family Medicine; Visit Provider Student in an Organized Health Care Education/Training Program
DX: L03.115 Cellulitis of right lower limb (principal); L97.922 Non-pressure chronic ulcer of unspecified part of left lower leg with fat layer exposed; L97.912 Non-pressure chronic ulcer of unspecified part of right lower leg with fat layer exposed; L03.116 Cellulitis of left lower limb; I10 Essential (primary) hypertension; I87.2 Venous insufficiency (chronic) (peripheral); Z91.19 Patient's noncompliance with other medical treatment and regimen; F79 Unspecified intellectual disabilities; Z79.899 Other long term (current) drug therapy; Z85.820 Personal history of malignant melanoma of skin; B95.61 Methicillin susceptible Staphylococcus aureus infection as the cause of diseases classified elsewhere
CPT/HCPCS: 36415; 80048; 83605; 85025; 85027; 87040; 87070; 87077; 87186; 87205; 87640; 97162; 97166; 99251; 99281; J7040; J7050; A4216; G0463; J0295

== ENCOUNTER 2021-10-08 15:27 | Inpatient (IN) | payer MEDICARE, SELFPAY ==
[2021-10-08] VITALS (7 sets, daily range): BP systolic 130–164; BP diastolic 66–94; PULSE 78–98; RESP 14–20; TEMP 35.6–36.9; O2SAT 98–100; BMI 38.9; BMI 35.9
--- NOTE | 2021-10-08 15:46 | EDS_ITS ---
HPI History of Present Illness Chief Complaint: Cellulitis Informant: patient Onset/Context/Timing Onset: Days (4-5) Context: Gradual Onset Timing: Continuous Quality: worse wounds, redness, and edema Location: BLE Current Severity: Moderate Maximum Severity: Moderate Worsened by: palpation Relieved by: leaving alone Associated Symptoms Associated Symptoms: edema both legs, which is new Narrative Narrative: Chronic wounds of both lower legs for the past 7-8 years. Wounds have looked more significant in the past 4 or 5 days along with seeping of water out onto his pants and socks, and edema of both legs simultaneously. The edema is new, he is not usually swollen. He does not have a history of heart failure that they know of. He is accompanied by family member who is a [id number] and helps care for him. She provides most of the history, the patient has a history of a learning disability of some sort, and he is very hard of hearing. No fevers or chills, no dyspnea, orthopnea, chest discomfort, palpitations, syncope, or other systemic symptoms. He states his legs are sore but not extremely painful. [facility] Medical History (Updated 10/08/21 @ 15:[address] Yusef Riley MD) Edema of both legs HTN (hypertension) Melanoma Mental deficiency Noncompliance Stasis dermatitis of both legs Ulcer of left lower leg Ulcer of right lower extremity with fat layer exposed Home Medications lisinopril 10 mg PO DAILY 12/15/16 [History Last Taken 03/28/20] doxycycline monohydrate 100 mg PO BID #20 cap 03/30/20 [Rx Last Taken Unknown] Allergy/AdvReac Type Severity Reaction Status Date / Time No Known Allergies Allergy Verified 10/08/21 15:28 Surgical History (Updated 10/08/21 @ 15:[address] Yusef Riley MD) H/O melanoma excision History of skin graft Social History Smoking Status: Never smoker ROS ROS ED Constitutional Constitutional ED: Denies chills or fever(s) Eyes Eyes: Denies change in vision or diplopia ENT ENT ED: Denies rhinorrhea or sore throat Cardiovascular Cardiovascular: Reports as per HPI and pedal edema; Denies chest pain, orthopnea or palpitations Respiratory/Chest Respiratory/Chest: Denies cough, dyspnea, orthopnea or portable oxygen @ home Gastrointestinal Gastrointestinal: Denies abdominal pain, diarrhea, nausea or vomiting Genitourinary Genitourinary ED: Denies dysuria or hematuria Musculoskeletal Musculoskeletal: Reports extremity pain; Denies neck pain Integumentary Reports as per HPI, rash and wounds; Denies Abrasions Neurologic Neurologic: Denies paresthesias or weakness Psychiatric Psychiatric: Denies anxiety or suicidal thoughts EXAM Physical Exam Const Vital Signs: 10/08/21 15:28 10/08/21 15:32 10/08/21 15:41 Temperature 96.1 F L 98.4 F Temperature Source Temporal Temporal Pulse Rate 95 97 Respiratory Rate 14 18 Respiratory Effort Normal Respiratory Pattern Normal Blood Pressure 151/92 H 164/94 H Blood Pressure Mean 111 117 Pulse Ox 100 100 Oxygen Delivery Method Room Air Room Air 10/08/21 16:29 10/08/21 17:27 Temperature 98.4 F 98.4 F Temperature Source Temporal Temporal Pulse Rate 88 78 Respiratory Rate 14 14 Respiratory Effort Respiratory Pattern Blood Pressure 138/66 H 140/69 H Blood Pressure Mean 90 92 Pulse Ox 98 98 Oxygen Delivery Method Room Air Room Air Positive well nourished and well developed General Appearance ED: well developed and NAD HEENT Reports moist mucous membranes normocephalic and atraumatic Eyes PERRL and EOMs intact bilaterally Neck full ROM and supple Resp normal respiratory effort and clear to auscultation bilaterally Cardio regular rate, regular rhythm and no murmurs GI non-tender and non-distended Auscultation: normoactive bowel sounds Palpation: soft Back/Spine normal ROM and normal to inspection General Back: other FROM Extremity Extremity Narrative: Chronic appearing ulceration to the lateral aspect of the right lower leg, fat layer appears to be exposed, it appears to be chronic and not necessarily acutely infected, there is no discharge expressible from it. General Extremety ED: Negative for pulses abnormal General Extremity: edema bilateral lower extremity (Mild-moderate right lower leg to the proximal araujo, worse on the left with pitting in the foot and erythema into the base of the toes. Nontender there. Prescribe refill.); Negative for pulses abnormal Neuro no focal motor deficits and no sensory deficits noted Neuro Narrative: Keenly alert and in no distress, cooperative, at baseline mental status according to family Sensorium / Orientation: alert Motor Exam: strength 5/5 throughout Psych mental status grossly normal and thought process normal Skin Skin Narrative: Erythematous both lower legs, which also is encompassing multiple wounds, seems worse on the left, diffuse mild tenderness throughout these areas which are worse anteriorly than in the calf. Fairly unremarkable from the knees to the groins. No lymphangitis. No abscesses. MDM MDM MDM Narrative Medical decision making narrative: Patient has a significant leukocytosis of 23.6. It is noted that he always has had abnormally elevated white blood counts in the past but he has never had one this high. interestingly, there is a predilection for lymphocytes. Etiology and significance of this is unknown. However the wounds on his legs appear significant as does the cellulitis. There is no subcutaneous emphysema or rapid worsening to suggest necrotizing fasciitis; I reevaluated the patient after his work-up returned and there was no difference in the appearance of erythema and swelling compared with before. I did do a D-dimer to rule out DVT, which is unlikely with both lower extremity involvement but it is asymmetric, it was abnormal so an ultrasound of both lower extremities was obtained, showing no evidence of DVT but he did have lymphadenopathy suggestive of cellulitis. I convince him to stay in the hospital although he did not initially want to, I think he needs IV antibiotics to at least make sure he is improving prior to going home on orals and he is amenable to that. Lab Data Attestation: I reviewed the patient's lab results. Labs: Laboratory Results - last 24 hr 10/08/21 10/08/21 10/08/21 15:50 15:50 15:50 WBC 23.6 H RBC 4.46 L Hgb 13.8 Hct 40.9 MCV 91.7 MCH 30.9 MCHC 33.7 RDW Std Deviation 48.4 H RDW Coeff of Heath 14.5 Plt Count 246 MPV 12.3 H Immature Gran % (Auto) 0.300 Neut % (Auto) 32.4 L Lymph % (Auto) 57.4 H Ul[place] % (Auto) 9.0 Eos % (Auto) 0.6 Baso % (Auto) 0.3 Absolute Neuts (auto) 7.7 Absolute Lymphs (auto) 13.54 H Nucleated RBC % 0 Differential Comment Diff Path Review May foll Smudge Cells 2+ Platelet Estimate ADEQUATE RBC Morphology NORM C+C D-Dimer Quant (PE/DVT) 1.36 H* Sodium Potassium Chloride Carbon Dioxide Anion Gap BUN Creatinine Estim Creat Clear Calc Est GFR (MDRD) Af Amer Est GFR (MDRD) Non-Af BUN/Creatinine Ratio Glucose Calcium B-Natriuretic Peptide 92.4 10/08/21 15:50 WBC RBC Hgb Hct MCV MCH MCHC RDW Std Deviation RDW Coeff of Heath Plt Count MPV Immature Gran % (Auto) Neut % (Auto) Lymph % (Auto) [place] % (Auto) Eos % (Auto) Baso % (Auto) Absolute Neuts (auto) Absolute Lymphs (auto) Nucleated RBC % Differential Comment Diff Path Review Smudge Cells Platelet Estimate RBC Morphology D-Dimer Quant (PE/DVT) Sodium 140 Potassium 4.2 Chloride 106 Carbon Dioxide 29.0 Anion Gap 5 BUN 12 Creatinine 0.94 Estim Creat Clear Calc 81.48 Est GFR (MDRD) Af Amer 105 Est GFR (MDRD) Non-Af 87 BUN/Creatinine Ratio 12.8 Glucose 85 Calcium 9.3 B-Natriuretic Peptide Radiography Diagnostic Testing: Clinical Impression(s) from Imaging Studies Venous Duplex 10/08/21 16:36 IMPRESSION: 1. No evidence of deep vein thrombosis of either lower extremity. 2. No evidence of Collier''s cyst bilaterally. 3. Moderate lymphadenopathy in both groin regions. 4. Mildly enlarged lymph node posterior to the right knee. Electronically Signed: Mikhail Irving MD at 17:55 EDT , Discharge Plan Dx/Rx/DC Orders Clinical Impression: Bilateral lower leg cellulitis, Leukocytosis, Chronic ulcer of right leg with fat layer exposed Disposition Disposition: Acute Care [facility]
[2021-10-08 15:59] LABS: Absolute Lymphocyte Count 13.54 X10^3/uL (0.83-4.51); Absolute Neutrophil Count 7.7 X10^3/uL (2.0-7.7); Basophil# 0.06 X10^3/uL; Basophil% 0.3 % (0-1); Eosinophil# 0.14 X10^3/uL; Eosinophils% 0.6 % (0-5); Hematocrit 40.9 % (40-54); Hemoglobin 13.8 g/dL (13.0-16.5); Lymphocyte # 13.54 X10^3/ul (0.83-4.51); Lymphocyte % 57.4 % (19-41); Mean Corp Hgb Conc 33.7 g/dL (32-36); Mean Corpuscular Hgb 30.9 pg (27.0-32.0); Mean Corpuscular Volume 91.7 fL (80-94); Mean Platelet Vol. 12.3 fl (6.2-12.0); Monocyte# 2.13 X10^3/uL; NRBC Flagged by Analyzer 0 % (0-5); Neutrophil # 7.66 X10^3/uL (2.7-7.7); Neutrophil % 32.4 % (47-70); POSITIVE DIFFERENTIAL YES; POSITIVE MORPHOLOGY YES; Platelet Count 246 K/mm3 (150-450); RBC Distribution Width CV 14.5 % (11.6-14.6); RBC Distribution Width SD 48.4 fl (35.1-43.9); Red Blood Count 4.46 M/mm3 (4.6-6.2); White Blood Count 23.6 K/mm3 (4.4-11.0)
[2021-10-08] MEDS: Cefazolin 1 GM/50 ML BAG IV (16:04)
[2021-10-08 16:05] LABS: Differential Indicated SCAN CRITERIA MET
[2021-10-08 16:17] LABS: Anion Gap 5 (5-15); BUN 12 mg/dL (7-18); BUN/Creat Ratio 12.8 RATIO (10-20); Calcium,Total 9.3 mg/dL (8.5-10.1); Chloride 106 mmol/L (98-107); Creatinine, Serum 0.94 mg/dL (0.70-1.30); EST Glomerular Filtration Rate 87 mL/min (>60); Est Glom Filt Rate - Afr Amer 105 mL/min (>60); Estimated Creatinine Clearance 81.48 ml/min; Glucose 85 mg/dL (74-106); Potassium 4.2 mmol/L (3.5-5.1); Sodium Level 140 mmol/L (136-145)
[2021-10-08 16:18] LABS: BNP,B-Type NATRIURETIC PEPTIDE 92.4 pg/mL (0-100)
[2021-10-08 16:31] LABS: D-Dimer Quantitative (DVT/PE) 1.36 FEU/ug/m (0.27-0.49)
--- NOTE | 2021-10-08 16:36 | US_ITS ---
STUDY: BILATERAL LOWER EXTREMITY DUPLEX VENOUS ULTRASOUND EXAMINATION OF 1652 HOURS ON 10/08/2021 REASON FOR EXAM: 61-year-old male with bilateral lower extremity pain and shortness of breath. TECHNIQUE: Ultrasound evaluation of the deep vein system to include carl-scale imaging and compression was performed. Carl-scale imaging and Doppler sonographic evaluation, including duplex spectral analysis and qualitative color flow sonography, was performed. COMPARISON: None. FINDINGS: RIGHT LEG Common Femoral Vein: Normal compression, spontaneity and augmentation. Normal color Doppler. Common Femoral Vein/Greater Saphenous Junction: Normal compression, spontaneity and augmentation. Normal color Doppler. Deep Femoral Vein: Normal compression, spontaneity and augmentation. Normal color Doppler. Femoral Proximal: Normal compression, spontaneity and augmentation. Normal color Doppler. Femoral Middle: Normal compression, spontaneity and augmentation. Normal color Doppler. Femoral Distal: Normal compression, spontaneity and augmentation. Normal color Doppler. Popliteal Vein: Normal compression, spontaneity and augmentation. Normal color Doppler. Posterior Tibial Vein: Normal compression, spontaneity and augmentation. Normal color Doppler. Peroneal Vein: Normal compression, spontaneity and augmentation. Normal color Doppler. LEFT LEG Common Femoral Vein: Normal compression, spontaneity and augmentation. Normal color Doppler. Common Femoral Vein/Greater Saphenous Junction: Normal compression, spontaneity and augmentation. Normal color Doppler. Deep Femoral Vein: Normal compression, spontaneity and augmentation. Normal color Doppler. Femoral Proximal: Normal compression, spontaneity and augmentation. Normal color Doppler. Femoral Middle: Normal compression, spontaneity and augmentation. Normal color Doppler. Femoral Distal: Normal compression, spontaneity and augmentation. Normal color Doppler. Popliteal Vein: Normal compression, spontaneity and augmentation. Normal color Doppler. Posterior Tibial Vein: Normal compression, spontaneity and augmentation. Normal color Doppler. Peroneal Vein: Normal compression, spontaneity and augmentation. Normal color Doppler. There is no evidence of phlebothrombosis of the deep venous system of either lower extremity. There is no evidence of Collier''s cyst. There are moderately enlarged lymph nodes in both groin regions. There is also an enlarged lymph node posterior to the right knee. US/Venous Duplex Imag/Leonardo Extrem IMPRESSION: 1. No evidence of deep vein thrombosis of either lower extremity. 2. No evidence of Collier''s cyst bilaterally. 3. Moderate lymphadenopathy in both groin regions. 4. Mildly enlarged lymph node posterior to the right knee. Electronically Signed: Mikhail Irving MD at 17:55 EDT ,
[2021-10-08 17:46] LABS: Platelet Estimate ADEQUATE (ADEQ); Red Cell Morphology NORM C+C NORMAL (NORM C&C); Smudge Cells 2+
--- NOTE | 2021-10-08 18:07 | PCM.HP.STD ---
HPI - General HPI Narrative ALLEY FORTE, is a 61 M with a PMH as outlined who presents via the ED on 10/08/2021 with a complaint of swelling in both LEs. HE has a history of MRDD and is not [facility] best historian. He has chronic wounds on his lower extremities, and his lower extremities are noted to be more swollen and erythematous. They are also oozing more fluid due to the edema, which according to his family is new. He denies any fever, chills, nausea, vomiting or diarrhea. He admits to soreness in his LEs. Review of systems is otherwise negative. Vitals were BP of 140/69, ME of 78, RR of 14 and he was saturating at 98% on room air. Temp was 98.4F. CBC showed wbc of 23.6, Hb of 13.8 and platelets of 246. Chemistry was unremarkable. D dimer was 1.36, and duplex of hte LEs was negative for DVT but showed moderate lymphadenopathy in both groin regions and mildly enlarged lymph node posterior to the right knee. He is being admitted to be managed for cellulitis of both Lower extremities. [facility] Medical History (Updated 10/08/21 @ 15:[address] Yusef Riley MD) Edema of both legs HTN (hypertension) Melanoma Mental deficiency Noncompliance Stasis dermatitis of both legs Ulcer of left lower leg Ulcer of right lower extremity with fat layer exposed Home Medications lisinopril 10 mg PO DAILY 12/15/16 [History Last Taken 03/28/20] doxycycline monohydrate 100 mg PO BID #20 cap 03/30/20 [Rx Last Taken Unknown] Allergy/AdvReac Type Severity Reaction Status Date / Time No Known Allergies Allergy Verified 10/08/21 15:28 Surgical History (Updated 10/08/21 @ 15:[address] Yusef Riley MD) H/O melanoma excision History of skin graft Social History Smoking Status: Never smoker ROS Constitutional Constitutional: Denies anorexia, chills, fatigue, fever(s), malaise or weakness Eyes Eyes: Denies change in vision ENT HEENT: Denies dysphagia, headache(s) or nasal congestion Cardiovascular Cardiovascular: Denies chest pain, dyspnea on exertion, edema, lightheadedness, orthopnea, palpitations, rapid heart rate or syncope Respiratory/Chest Respiratory/Chest: Denies cough, dyspnea, shortness of breath at rest or shortness of breath with exertion Gastrointestinal Gastrointestinal: Denies abdominal pain, constipation or diarrhea Genitourinary Genitourinary: Denies burning urination Neurologic Neurologic: Denies confusion Psychiatric Psychiatric: Denies anxiety Vital Signs Vital Signs Vital Signs: 10/08/21 15:28 10/08/21 15:32 10/08/21 15:41 Temperature 96.1 F L 98.4 F Temperature Source Temporal Temporal Pulse Rate 95 97 Respiratory Rate 14 18 Respiratory Effort Normal Respiratory Pattern Normal Blood Pressure 151/92 H 164/94 H Blood Pressure Mean 111 117 Pulse Ox 100 100 Oxygen Delivery Method Room Air Room Air 10/08/21 16:29 10/08/21 17:27 Temperature 98.4 F 98.4 F Temperature Source Temporal Temporal Pulse Rate 88 78 Respiratory Rate 14 14 Respiratory Effort Respiratory Pattern Blood Pressure 138/66 H 140/69 H Blood Pressure Mean 90 92 Pulse Ox 98 98 Oxygen Delivery Method Room Air Room Air Weight Weight: 263 lb 10.766 oz Body Mass Index (BMI) 38.9 Physical Exam Const alert, no apparent distress and healthy appearing General Appearance: cooperative HEENT normocephalic, head/scalp atraumatic, hearing grossly normal bilaterally and moist oral mucous membranes Eyes PERRL, EOMs intact bilaterally and conjunctivae normal Neck no lymphadenopathy, supple and no JVD Resp normal respiratory effort, no retractions, no use of accessory muscles and clear to auscultation bilaterally Cardio regular rate, regular rhythm, S1 normal heart sound, S2 normal heart sound and no murmurs GI normal to inspection, nondistended, normoactive bowel sounds, soft to palpation, non-tender and non-distended Extremity Extremity Narrative: bilateral lower extremity pitting edema, with erythema of both legs, worsening chronic wounds which are erythematous and oozing flud Peripheral Pulses: Yes pulses 2+ throughout Skin Skin Narrative: as under extremities Neuro oriented x3, CN's II-XII intact bilaterally and moves all extremities Sensorium / Orientation: awake and alert Psych affect normal Results Lab / Micro Data Result Diagrams: 10/08/21 15:50 10/08/21 15:50 Labs: Laboratory Results - last 24 hr 10/08/21 15:50: B-Natriuretic Peptide 92.4 10/08/21 15:50: WBC 23.6 H, RBC 4.46 L, Hgb 13.8, Hct 40.9, MCV 91.7, MCH 30.9, MCHC 33.7, RDW Std Deviation 48.4 H, RDW Coeff of Heath 14.5, Plt Count 246, MPV 12.3 H, Immature Gran % (Auto) 0.300, Neut % (Auto) 32.4 L, Lymph % (Auto) 57.4 H, [place] % (Auto) 9.0, Eos % (Auto) 0.6, Baso % (Auto) 0.3, Absolute Neuts (auto) 7.7, Absolute Lymphs (auto) 13.54 H, Nucleated RBC % 0, Differential Comment , Diff Path Review May foll, Smudge Cells 2+, Platelet Estimate ADEQUATE, RBC Morphology NORM C+C 10/08/21 15:50: D-Dimer Quant (PE/DVT) 1.36 H* 10/08/21 15:50: Sodium 140, Potassium 4.2, Chloride 106, Carbon Dioxide 29.0, Anion Gap 5, BUN 12, Creatinine 0.94, Estim Creat Clear Calc 81.48, Est GFR (MDRD) Af Amer 105, Est GFR (MDRD) Non-Af 87, BUN/Creatinine Ratio 12.8, Glucose 85, Calcium 9.3 Radiology Impression Venous Duplex 10/08/21 16:36 IMPRESSION: 1. No evidence of deep vein thrombosis of either lower extremity. 2. No evidence of Collier''s cyst bilaterally. 3. Moderate lymphadenopathy in both groin regions. 4. Mildly enlarged lymph node posterior to the right knee. Electronically Signed: Mikhail Irving MD at 17:55 EDT , Assessment & Plan Assessment/Plan (1) Cellulitis of both lower extremities: PLAN: #BIlateral lower extremity cellulitis admit to med surg given a dose of IV cefazolin in the ED wbc elevated at 22.5; he does have chronically elevated wbc, but this is much higher thath usual previous wound cultures grew Staph aureus, methicillin sensitive will therefore continue him on cefazolin get wound cultures consult wound care #Hypertension: on lisinopril. will continue #History of MRDD: stable DVT prophylaxis: lovenox COde status: full code Patient and his sister in law counseled extensively about different types of CODE STATUS including full code, DNR CCA and DNR CCA. Due to his MRDD, he didnt understand much about the code status; his sister in law who was with him and helps to take care of him said he would be a full code. total face to face time: 17 mins Charges/Coding Visit Charges Inpatient E&M: 48346 Init Hosp L3 Procedures Hospitalists Procedures: 75703 Advncd Care Plan 30 Min
--- NOTE | 2021-10-08 18:07 | NURSING ---
DR LEDESMA FOR DR ROCKWELL
--- NOTE | 2021-10-08 18:18 | NURSING ---
MED SURG KORAM CELLULLITIS BLE WITH EDEMA, LEUKOCYTOSIS
[2021-10-08] MEDS: 0.9% Saline Lock 10 ML Syringe IV (20:45)
[2021-10-08] MEDS: 0.9% Normal Saline 1,000 ML 125 ML IV (20:45)
[2021-10-08] MEDS: Cefazolin 2 GM in 0.9% Normal Saline 100 ML IV (22:27)
--- NOTE | 2021-10-09 04:52 | NURSING ---
Pt is refusing morning labs.
[2021-10-09] MEDS: 0.9% Saline Lock 10 ML Syringe IV ×2 (05:07→21:14)
[2021-10-09] MEDS: Cefazolin 2 GM in 0.9% Normal Saline 100 ML IV ×3 (05:07→21:14)
[2021-10-09 05:13] VITALS: BP 109/62; PULSE 77; RESP 16; TEMP 36.4; O2SAT 97
[2021-10-09] MEDS: 0.9% Normal Saline 1,000 ML 125 ML IV (06:37)
[2021-10-09] MEDS: Lisinopril 10 MG Tablet PO (08:34)
[2021-10-09] MEDS: Enoxaparin 40 MG/0.4 ML Syringe SC (08:34)
--- NOTE | 2021-10-09 09:15 | WOUNDNOTE ---
wound photo: bilateral lower legs
--- NOTE | 2021-10-09 09:20 | PN.HOSP_ITS ---
Subjective Subjective Patient seen and examined. He had no complaints and had an uneventful night. His LEs were dressed by wound nurse today. Review of systems is otherwise negative. WBC is up to 23.6; he does have chronically elevated wbc. Objective Data Objective Data Vital Signs: Vital Signs Temp Pulse Resp BP Pulse Ox 97.6 F L 77 16 109/62 97 10/09/21 05:13 10/09/21 05:13 10/09/21 05:13 10/09/21 05:13 10/09/21 05:13 Oxygen Delivery Method Room Air Weight: 242 lb 15.19 oz Body Mass Index (BMI) 35.9 Intake & Output: Intake and Output for Last 24 Hours 10/07/21 10/08/21 10/09/21 23:59 23:59 23:59 Intake Total 672.5 / 672.5 1097.50 / 1097.50 Output Total 350 / 350 475 / 475 Balance 322.5 / 322.5 622.50 / 622.50 Lab / Micro Data Result Diagrams: 10/08/21 15:50 10/08/21 15:50 Labs: Laboratory Results - last 24 hr 10/08/21 15:50: B-Natriuretic Peptide 92.4 10/08/21 15:50: WBC 23.6 H, RBC 4.46 L, Hgb 13.8, Hct 40.9, MCV 91.7, MCH 30.9, MCHC 33.7, RDW Std Deviation 48.4 H, RDW Coeff of Heath 14.5, Plt Count 246, MPV 12.3 H, Immature Gran % (Auto) 0.300, Neut % (Auto) 32.4 L, Lymph % (Auto) 57.4 H, [place]ie % (Auto) 9.0, Eos % (Auto) 0.6, Baso % (Auto) 0.3, Absolute Neuts (auto) 7.7, Absolute Lymphs (auto) 13.54 H, Nucleated RBC % 0, Differential Comment , Diff Path Review May foll, Smudge Cells 2+, Platelet Estimate ADEQUATE, RBC Morphology NORM C+C 10/08/21 15:50: D-Dimer Quant (PE/DVT) 1.36 H* 10/08/21 15:50: Sodium 140, Potassium 4.2, Chloride 106, Carbon Dioxide 29.0, Anion Gap 5, BUN 12, Creatinine 0.94, Estim Creat Clear Calc 81.48, Est GFR (MDRD) Af Amer 105, Est GFR (MDRD) Non-Af 87, BUN/Creatinine Ratio 12.8, Glucose 85, Calcium 9.3 Radiography Diagnostic Testing: Radiology Impression Venous Duplex 10/08/21 16:36 IMPRESSION: 1. No evidence of deep vein thrombosis of either lower extremity. 2. No evidence of Collier''s cyst bilaterally. 3. Moderate lymphadenopathy in both groin regions. 4. Mildly enlarged lymph node posterior to the right knee. Electronically Signed: Mikhail Irving MD at 17:55 EDT , Physical Exam Const alert, no apparent distress and healthy appearing General Appearance: cooperative HEENT normocephalic, head/scalp atraumatic, hearing grossly normal bilaterally and moist oral mucous membranes Head and Scalp: normocephalic Eyes PERRL, EOMs intact bilaterally and conjunctivae normal Neck no lymphadenopathy, supple and no JVD Resp normal respiratory effort, no retractions, no use of accessory muscles and clear to auscultation bilaterally Cardio regular rate, regular rhythm, S1 normal heart sound, S2 normal heart sound and no murmurs GI normal to inspection, nondistended, normoactive bowel sounds, soft to palpation, non-tender and non-distended Extremity Extremity Narrative: both LEs wrapped in bandage Peripheral Pulses: Yes pulses 2+ throughout Skin Skin Narrative: as under extremities Neuro CN's II-XII intact bilaterally and moves all extremities Sensorium / Orientation: awake and alert Psych affect normal Assessment & Plan Assessment/Plan (1) Cellulitis of both lower extremities: PLAN: #BIlateral lower extremity cellulitis * on IV cefazolin, based on previous culture results. * given a dose of IV cefazolin in the ED * wbc elevated at 22.5; he does have chronically elevated wbc, but this is much higher thath usual * previous wound cultures grew Staph aureus, methicillin sensitive * will therefore continue him on cefazolin * get wound cultures * consult wound care * #Hypertension: on lisinopril. will continue #History of MRDD: stable DVT prophylaxis: lovenox COde status: full code * Patient and his sister in law counseled extensively about different types of CODE STATUS including full code, DNR CCA and DNR CCA. * Due to his MRDD, he didnt understand much about the code status; his sister in law who was with him and helps to take care of him said he would be a full code. * total face to face time: 17 mins
[2021-10-09 10:15] LABS: M R Staph aureus DNA By PCR Negative (Negative); Probe Check PASS; Specimen Processing Control PASS; Staph aureus DNA By PCR POSITIVE (Negative)
[2021-10-09 11:00] VITALS: BP 125/68; PULSE 84; RESP 16; TEMP 36.6; O2SAT 99
--- NOTE | 2021-10-09 11:04 | CASEMGMT ---
GLADIS WILLSON Assessment: Face to Face with pt for initial transition planning/care coordination assessment. RN ANAMIKA introduced self and role at [facility], pt voices understanding and consents to assessment. Pt is A/O x4 and answers all questions appropriately at this time, yet slow to answer. Care providers, pharmacy, and demographics verified/updated. Admitting Dx: cellulitis of both legs PCP:[facility] Specialists:Pt denies. [facility]erred [facility] Benef[facility]: yes LW/HPOA: Pt denies having a LW/DPOA and denies need for info regarding AD. Pt shakila Gibson states she believes Huy Alonso is pt DPOA. She is aware it is not on file at [facility] and it may be brought in to be scanned into the chart. LNOK: Cesar Alonso, father; Huy Alonso, brother; Arthur Alonso, shakila Living Arrangements: Pt lives with father in a three story house with 4 steps to enter with a rail. Pt reports he is I in ADL's and denies concerns at home. Transportation: Pt brother and shakila provide transportation for pt. Pt nor his father drive. DME/HHC/SNF: Pt does not use AD at home but has access to a FWW and cane. Pt has had [facility]HC in the past and denies SNF stays. Pt states no concerns with going home at time of dc. He designates his shakila to be his supervisor contact lens for dc planning. TC to Arthur, she confirms the above assessment. She denies needs for pt in the home. She states he goes to [facility] during the day and the nurse there used to work at the wound healing center. States the nurse monitors pt legs. Denies need for HHC. Pt states no further concerns/needs. CM to follow. Advised pt to ask CM if any further question/concerns/needs arise, voices understanding. Pt Goal: Home Plan: Home
[2021-10-09 12:42] LABS: Pathologist Review Reviewed
[2021-10-09] MEDS: Juven (unflavored) Packet 1 PACKET PO (16:10)
[2021-10-09 17:00] VITALS: BP 113/66; PULSE 75; RESP 16; TEMP 36.5; O2SAT 98
[2021-10-09 20:35] VITALS: BP 106/62; PULSE 80; RESP 16; TEMP 36.7; O2SAT 97
[2021-10-10 02:20] VITALS: BP 131/74; PULSE 78; RESP 16; TEMP 36.6; O2SAT 98
[2021-10-10] MEDS: Cefazolin 2 GM in 0.9% Normal Saline 100 ML IV (05:41)
--- NOTE | 2021-10-10 06:35 | NURSING ---
pt refused labs this am, eduacted pt why his labs needs drawn. pt still refused. made Dr. Charles aware. no new orders.
[2021-10-10 09:41] VITALS: BP 127/68; PULSE 73; RESP 20; TEMP 35.9; O2SAT 97
[2021-10-10] MEDS: Enoxaparin 40 MG/0.4 ML Syringe SC (09:42)
[2021-10-10] MEDS: Juven (unflavored) Packet 1 PACKET PO (09:42)
[2021-10-10] MEDS: Lisinopril 10 MG Tablet PO (09:43)
--- NOTE | 2021-10-10 11:12 | PCM.DC.SUM ---
Providers Date of Admission: 10/08/21 Primary Care Physician: Dr. Anthony Vang MD Consultations 10/08/21 19:15 Consult: Onc/Wound/property maintenance technician Routine Comment: Reason For Visit: CELLULITIS OF BOTH LES Diagnosis Discharge Diagnosis (1) Cellulitis of both lower extremities: Status: Chronic Code(s): L03.115 - Cellulitis of right lower limb; L03.116 - Cellulitis of left lower limb Medications at Discharge Home Medications lisinopril 10 mg PO DAILY 12/15/16 sulfamethoxazole-trimethoprim [Bactrim DS] 1 tab PO BID #20 tab 10/10/21 Hospital Course Operations None Procedures None Summary of Care Provided Minutes Spent on Discharge: 45 Hospital Course: ALLEY FORTE, is a 61 M with a PMH as outlined who presents via the ED on 10/08/2021 with a complaint of swelling in both LEs. HE has a history of MRDD and is not [facility] best historian. He has chronic wounds on his lower extremities, and his lower extremities are noted to be more swollen and erythematous. They are also oozing more fluid due to the edema, which according to his family is new. He denies any fever, chills, nausea, vomiting or diarrhea. He admits to soreness in his LEs. Review of systems is otherwise negative. Vitals were BP of 140/69, HI of 78, RR of 14 and he was saturating at 98% on room air. Temp was 98.4F. CBC showed wbc of 23.6, Hb of 13.8 and platelets of 246. Chemistry was unremarkable. D dimer was 1.36, and duplex of hte LEs was negative for DVT but showed moderate lymphadenopathy in both groin regions and mildly enlarged lymph node posterior to the right knee. He was admitted to be managed for cellulitis of both Lower extremities. Was started on IV cefazolin based on previous wound cultures that were positive for MSSA. Wound culture this time also positive for MSSA. Wound care was consulted. Patient did improve with medication. He was discharged home on PO bactrim double strength 1 tablet bid for 10 days. He is to follow up with his PCP and with wound care. Patient seen and examined prior to discharge. He felt well and had no active complaints. He had an uneventful night and review of systems otherwise negative. Labs and vitals reviewed. Home medication reviewed and reconciled. Physical Exam Const alert, no apparent distress and healthy appearing General Appearance: cooperative, comfortable and well kempt Orientation / Consciousness: awake HEENT normocephalic, head/scalp atraumatic, hearing grossly normal bilaterally and moist oral mucous membranes Eyes PERRL, EOMs intact bilaterally and conjunctivae normal Neck no lymphadenopathy, supple and no JVD Resp normal respiratory effort, no retractions, no use of accessory muscles and clear to auscultation bilaterally Cardio regular rate, regular rhythm, S1 normal heart sound, S2 normal heart sound and no murmurs GI normal to inspection, nondistended, normoactive bowel sounds, soft to palpation, non-tender and non-distended Extremity Extremity Narrative: both LEs wrapped in bandage Skin Skin Narrative: as under extremities Neuro CN's II-XII intact bilaterally and moves all extremities Sensorium / Orientation: awake and alert Psych affect normal Weight / BMI Weight Weight: 242 lb 15.19 oz Body Mass Index (BMI) 35.9 ABG / Lab / Microbiology Data Result Diagrams: 10/08/21 15:50 10/08/21 15:50 Laboratory: Laboratory Results - last 24 hr 10/08/21 15:50: Diff Path Review Reviewed Microbiology: Microbiology 10/09/21 08:15 Wound - Leg, Left Gram Stain - Final 10/09/21 08:15 Wound - Leg, Left Wound Culture - Preliminary Staphylococcus aureus D/C Instructions Discharge Diet: Low fat / Low cholesterol Discharge Activity: Return to Normal Activity Weight Bearing Status: Weight bearing as tolerated Call your doctor if you observe: Fever of 101 or Higher, Shortness of breath, Dizziness, Swelling in the ankles, Chest pain and Increased palpitations (irregular heartbeat) Meaningful Use Info Meaningful Use Diagnoses (Choose all that apply): None applicable Discharge Plan Admission Admit Date/Time: 10/08/21 18:17 Primary Reason for Your Visit: cellulitis of both LEs Attending Provider: Shreya Jacob Primary Care Provider: Anthony Vang Instructions Patient Instructions: Cellulitis Discharge Orders/Prescriptions Prescriptions: New sulfamethoxazole-trimethoprim [Bactrim DS] 800-160 mg tablet 1 tab PO BID Qty: 20 RF: 0 Continued lisinopril 10 MG tablet 10 mg PO DAILY RF: 0 Referrals / Follow Up: Anthony Vang MD [Primary Care Provider] - Disposition Disposition (needs filled in before D/C Order can be placed): Home, Self Care Charges/Coding Visit Charges Inpatient E&M: 66601 Disch Hosp
--- NOTE | 2021-10-10 15:54 | PHA.DC.MR ---
Pharmacy Service has performed discharge medication reconciliation for this patient. The patient's discharge medication list was reviewed for discrepancies and discrepancies were resolved. Home Medications lisinopril 10 mg PO DAILY 12/15/16 sulfamethoxazole-trimethoprim [Bactrim DS] 1 tab PO BID #20 tab 10/10/21
--- NOTE | 2021-10-10 16:07 | NURSING ---
This nurse phoned Pt's father and was unable to get an answer or call back. This nurse just phoned pts brother and left a message to call this nurse back.
--- NOTE | 2021-10-10 17:46 | PN.HOSP_ITS ---
Subjective Subjective Patient seen and examined. He had no complaints and had an uneventful night. Review of systems is otherwise negative. Objective Data Objective Data Vital Signs: Vital Signs Temp Pulse Resp BP Pulse Ox 96.7 F L 73 20 H 127/68 H 97 10/10/21 09:41 10/10/21 09:41 10/10/21 09:41 10/10/21 09:41 10/10/21 09:41 Oxygen Delivery Method Room Air Weight: 242 lb 15.19 oz Body Mass Index (BMI) 35.9 Intake & Output: Intake and Output for Last 24 Hours 10/08/21 10/09/21 10/10/21 23:59 23:59 23:59 Intake Total 672.5 / 672.5 3017.50 / 3017.50 530 / 530 Output Total 350 / 350 475 / 475 Balance 322.5 / 322.5 2542.50 / 2542.50 530 / 530 Lab / Micro Data Result Diagrams: 10/08/21 15:50 10/08/21 15:50 Micro: Microbiology 10/09/21 08:15 Wound - Leg, Left Gram Stain - Final 10/09/21 08:15 Wound - Leg, Left Wound Culture - Preliminary Staphylococcus aureus Physical Exam Const alert, oriented x3, no apparent distress, average body habitus and healthy appearing General Appearance: cooperative, comfortable and well kempt Orientation / Consciousness: awake HEENT normocephalic, head/scalp atraumatic, hearing grossly normal bilaterally and moist oral mucous membranes Head and Scalp: normocephalic Eyes PERRL, EOMs intact bilaterally and conjunctivae normal Neck no lymphadenopathy, supple and no JVD Resp normal respiratory effort, no retractions, no use of accessory muscles and clear to auscultation bilaterally Cardio regular rate, regular rhythm, S1 normal heart sound, S2 normal heart sound and no murmurs GI normal to inspection, nondistended, normoactive bowel sounds, soft to palpation, non-tender and non-distended Extremity Extremity Narrative: both LEs wrapped in bandage Peripheral Pulses: Yes pulses 2+ throughout Skin Skin Narrative: as under extremities Neuro oriented x3, CN's II-XII intact bilaterally and moves all extremities Sensorium / Orientation: awake and alert Psych affect normal Assessment & Plan Assessment/Plan (1) Cellulitis of both lower extremities: PLAN: #BIlateral lower extremity cellulitis * on IV cefazolin, based on previous culture results. * given a dose of IV cefazolin in the ED * has been refusing blood draws. * wound culture positive for MSSA. * continue IV cefazolin * wound care on board.y * discharge home today on PO bactrim for a 10 day course * #Hypertension: on lisinopril. #History of MRDD: stable DVT prophylaxis: lovenox COde status: full code * Charges/Coding Visit Charges Inpatient E&M: 28411 Subs Hosp L2
--- NOTE | 2021-10-10 18:16 | NURSING ---
Arthur, Pt's sister in law called back and said she was out of town, in [place] and had informed staff yesterday that she and her would be going out of town this weekend and that they told me that he would probably be here until Wednesday due to his extensive wounds. Family not planning on coming back until Wednesday. Arthur was made aware that this nurse did not know anything about family going out of town despite her telling everyone. Dr. Jacob called and made aware of the situation. Dr. Jacob stated that family was asking that if he was to be discharged on Wednesday that the earlier the better so they could take him to [place] to see his nieces graduation. Dr. Jacob stated that he has been medically cleared and no medical reason to be here. Arthur aware and made arrangements for her sister in law to come pick him up.
[2021-10-10 18:46] VITALS: BP 136/77; PULSE 72; RESP 20; TEMP 36.3; O2SAT 97
== END 2021-10-10 18:49 | disposition home or self-care (01) | DRG 603 ==
LOC: ED 18:15 → MS3 18:47
PROVIDERS: Admitting Provider Student in an Organized Health Care Education/Training Program; Emergency Provider Emergency Medicine; PCP Family Medicine; Visit Provider Student in an Organized Health Care Education/Training Program
DX: L03.115 Cellulitis of right lower limb (principal); L97.912 Non-pressure chronic ulcer of unspecified part of right lower leg with fat layer exposed; I10 Essential (primary) hypertension; I87.2 Venous insufficiency (chronic) (peripheral); B95.61 Methicillin susceptible Staphylococcus aureus infection as the cause of diseases classified elsewhere; L03.116 Cellulitis of left lower limb; Z79.899 Other long term (current) drug therapy; F79 Unspecified intellectual disabilities
CPT/HCPCS: 80048; 83880; 85025; 85379; 87070; 87077; 87186; 87205; 87640; 93970; 97162; 97166; 97802; 99284; J7030; A4216

== ENCOUNTER 2022-03-07 08:40 | Emergency (ER) | payer MEDICARE, SELFPAY ==
[2022-03-07 08:42] VITALS: BP 156/92; PULSE 88; RESP 20; TEMP 36.6; O2SAT 100; BMI 36.5
[2022-03-07 08:45] VITALS: BP 156/92; PULSE 88; RESP 20; TEMP 36.6; O2SAT 100
--- NOTE | 2022-03-07 09:12 | ED.VIS.LOWEX ---
HPI History of Present Illness Chief Complaint: Lower Extremity Injury Narrative Narrative: 62 year old male with history of MRDD and chronic ulceration on lower extremities presenting with his caregiver for evaluation of his right leg ulceration. She states he has been picking at this and there has been some drainage. She states that his leg is always quite red. It does not appear to be more painful. He is not had any fevers or chills. She states that she does do her own wound care and he has a document preparation specialist that manages normally. She states that he previously had worsening of this and was admitted and discharged home on Bactrim and he did well. He has not had any systemic signs or symptoms. [facility] Medical History Cellulitis of both lower extremities Edema of both legs HTN (hypertension) Melanoma Mental deficiency Noncompliance Stasis dermatitis of both legs Ulcer of left lower leg Ulcer of right lower extremity with fat layer exposed Home Medications lisinopril 10 mg tablet 10 mg PO DAILY BP 12/15/16 [History Last Taken 10/08/21] sulfamethoxazole 800 mg-trimethoprim 160 mg tablet (Bactrim DS) 1 tab PO BID #20 tabs 10/10/21 [Rx Last Taken Unknown] sulfamethoxazole 400 mg-trimethoprim 80 mg tablet (Bactrim) 1 tab PO DAILY #20 tabs 03/07/22 [Rx Last Taken Unknown] Allergy/AdvReac Type Severity Reaction Status Date / Time No Known Allergies Allergy Verified 03/07/22 08:45 Surgical History H/O melanoma excision History of skin graft Social History Smoking Status: Never smoker ROS ROS ED Constitutional Constitutional ED: Denies chills or subjective Eyes Eyes: Denies change in vision ENT ENT ED: Denies rhinorrhea or sore throat Cardiovascular Cardiovascular: Denies chest pain or palpitations Respiratory/Chest Respiratory/Chest: Denies cough or dyspnea Gastrointestinal Gastrointestinal: Denies abdominal pain Genitourinary Genitourinary ED: Denies hematuria Musculoskeletal Musculoskeletal: Denies arthralgias or back pain Integumentary Reports rash; Denies abscess Neurologic Neurologic: Denies headache(s) Psychiatric Psychiatric: Denies anxiety or depression Endocrine Endocrinology: Denies polydipsia or polyphagia EXAM Physical Exam Const Vital Signs: 03/07/22 08:42 03/07/22 08:45 Temperature 97.9 F 97.9 F Temperature Source Temporal Temporal Pulse Rate 88 88 Respiratory Rate 20 H 20 H Blood Pressure 156/92 H 156/92 H Blood Pressure Mean 113 113 Pulse Ox 100 100 Oxygen Delivery Method Room Air Room Air Positive well nourished General Appearance ED: NAD HEENT Reports moist mucous membranes normocephalic Resp normal respiratory effort Cardio regular rate and regular rhythm Extremity Extremity Narrative: Larger of erythema on the right tibial region extending somewhat medial and laterally but is not quite circumferential. There is a large area of ulceration about 5 cm on the lateral aspect of the right side of the calf. There is some skin breakdown surrounding this consistent with chronic stasis changes as well. No obvious drainage from the wound. MDM MDM MDM Narrative Medical decision making narrative: Patient seen and evaluated on arrival. Vital signs are stable and he is afebrile. His caregiver has concern that he has been picking at the wound on the right leg and she is concerned that it is infected. It does look erythematous. She does state that he always has pretty red areas on his right leg however because has been picking at it she wanted to catch anything before it could get worse. Since he did well on Bactrim previously I think it is reasonable to start this now. She has wound care follow-up. If any signs or symptoms of worsening she should return to the ER with him. Patient stable for discharge. Impression: 1. Chronic stasis dermatitis of thigh 2. Chronic ulcer right lower extremity 3. Cellulitis Discharge Plan Triage Chief Complaint: Lower Extremity Injury ED Provider: Wu Calvert Dx/Rx/DC Orders Instructions: ED Cellulitis Prescriptions: New sulfamethoxazole-trimethoprim [Bactrim] 400-80 mg tablet 1 tab PO DAILY Qty: 20 0RF No Action lisinopril 10 MG tablet 10 mg PO DAILY Label Comments: Blood pressure sulfamethoxazole-trimethoprim [Bactrim DS] 800-160 mg tablet 1 tab PO BID Qty: 20 0RF Primary Care Provider: Anthony Vang Referrals: Anthony Vang MD [Primary Care Provider] - Disposition Disposition: Home, Self Care
[2022-03-07] MEDS: Smz/Tmp Ds Tablet 1 TABLET PO (09:21)
== END 2022-03-07 09:34 | disposition home or self-care (01) ==
LOC: ED 09:17
PROVIDERS: Emergency Provider Student in an Organized Health Care Education/Training Program; PCP Family Medicine; Visit Provider Student in an Organized Health Care Education/Training Program
DX: L03.90 Cellulitis, unspecified (principal); L97.919 Non-pressure chronic ulcer of unspecified part of right lower leg with unspecified severity; I87.2 Venous insufficiency (chronic) (peripheral); I10 Essential (primary) hypertension; Z79.899 Other long term (current) drug therapy
CPT/HCPCS: 99283

== ENCOUNTER 2022-05-18 12:49 | Emergency (ER) | payer MEDICARE, SELFPAY ==
[2022-05-18 12:50] VITALS: BP 175/111; PULSE 99; RESP 18; TEMP 36.4; O2SAT 97; BMI 31.9
--- NOTE | 2022-05-18 16:24 | EDS_ITS ---
HPI History of Present Illness Chief Complaint: Cellulitis Informant: family Narrative Narrative: Patient is a 62-year-old male with history of MRDD, hypertension and chronic wounds as well as lower extremity cellulitis presenting with worsening redness and drainage of his lower legs. His sister in law is at the bed side who usually helps care for his wounds. Patient also goes to some type of adult daycare which usually helps with his wound care. Patient apparently has a history of picking and so is always picking at his legs which will make it worse. His family not seen him recently and had not been at daycare because he not been bathing. His wdtgar-uh-ocs was able to clean him up but was worried about the state of his leg so she brought him in. Patient is not on any type of formal wound care. He does have appointment to see his primary care doctor next week. Sister did not want infection and sudden again so she brought him in for further evaluation. No report of any systemic symptoms including fever, chills or activity/appetite changes. Apparently patient is also been out of his lisinopril not been taking it. Is not clear how long its been going on. Patient was seen in our ER in March (2 months ago) for a similar presentation at discharge on Bactrim. [facility] Medical History Cellulitis of both lower extremities Edema of both legs HTN (hypertension) Melanoma Mental deficiency Noncompliance Stasis dermatitis of both legs Ulcer of left lower leg Ulcer of right lower extremity with fat layer exposed Home Medications lisinopril 10 mg tablet 10 mg PO DAILY BP 12/15/16 [History Last Taken 10/08/21] sulfamethoxazole 800 mg-trimethoprim 160 mg tablet (Bactrim DS) 1 tab PO BID #20 tabs 10/10/21 [Rx Last Taken Unknown] sulfamethoxazole 400 mg-trimethoprim 80 mg tablet (Bactrim) 1 tab PO DAILY #20 tabs 03/07/22 [Rx Last Taken Unknown] lisinopril 10 mg tablet 10 mg PO DAILY #14 tabs 05/18/22 [Rx Last Taken Unknown] sulfamethoxazole 800 mg-trimethoprim 160 mg tablet (Bactrim DS) 1 tab PO Q12H #20 tabs 05/18/22 [Rx Last Taken Unknown] Allergy/AdvReac Type Severity Reaction Status Date / Time No Known Allergies Allergy Verified 05/18/22 12:50 Surgical History H/O melanoma excision History of skin graft Social History Smoking Status: Never smoker ROS ROS ED Review of Systems ROS Unobtainable: due to mental status EXAM Physical Exam Const Vital Signs: 05/18/22 12:50 05/18/22 16:49 05/18/22 16:49 Temperature 97.6 F L 97.6 F L Temperature Source Temporal Temporal Pulse Rate 99 99 Respiratory Rate 18 18 Respiratory Effort Normal Non-Labored Respiratory Pattern Normal Blood Pressure 175/111 H 175/111 H Blood Pressure Mean 132 132 Pulse Ox 97 97 Oxygen Delivery Method Room Air Room Air 05/18/22 19:23 05/18/22 19:23 Temperature Temperature Source Pulse Rate 99 100 Respiratory Rate 20 H 20 H Respiratory Effort Respiratory Pattern Blood Pressure 164/94 H 167/94 H Blood Pressure Mean 117 Pulse Ox 99 96 Oxygen Delivery Method Room Air Positive well nourished and well developed General Appearance ED: well developed and NAD HEENT Reports moist mucous membranes Eyes PERRL and EOMs intact bilaterally Neck supple Chest Wall palpation of chest normal Resp normal respiratory effort and clear to auscultation bilaterally Cardio regular rate, regular rhythm and no murmurs GI normal to inspection, nondistended, normoactive bowel sounds and non-tender Back/Spine no CVA tenderness Extremity Extremity Narrative: bilateral pitting edema to the knees 1+ , plethora of the feet present. 2+ bilateral DP pulses. Neuro Neuro Narrative: Patient at his cognitive baseline. No focal deficits appreciated. Sensorium / Orientation: alert Motor Exam: Negative for general weakness Psych mental status grossly normal Skin Skin Narrative: Chronic ulcerated wounds diffusely of the lower extremities that wrap circumferentially. No associate lipogenic streaking. There is some mild warmth bilaterally. There is scattered small bleeding areas, serous draining as well as scaling of the skin and some areas. No purulence or odor appreciated. No asymmetry appreciated. MDM MDM MDM Narrative Medical decision making narrative: Patient is evaluated for concern of worsening lower extremity chronic wounds. Patient is a poor historian because of his developmental delay and does have very extensive chronic wounds. No findings consistent with acute infection on exam. Vital signs are normal. Patient does have a leukocytosis of 22.8 but this does appear to be chronic. CRP and ESR are elevated. No crepitus I do not suspect necrotizing fasciitis. Patient has no systemic symptoms. Will start on Bactrim and refer to wound care. Patient is given a dose of lisinopril and a 2- week refill until he can have a refill from his primary care doctor. Patient is given referral for wound care. Discussed with his dyreot-sp-aet need for higher level of care than what his gait at home with his elderly father. She will continue to work with the board of for this. Localized wound care and wrapping of his legs was performed in the ER. Lab Data Attestation: I reviewed the patient's lab results. Labs: Laboratory Results - last 24 hr 05/18/22 05/18/22 16:55 16:55 WBC 22.8 H RBC 4.09 L Hgb 12.8 L Hct 37.8 L MCV 92.4 MCH 31.3 MCHC 33.9 RDW Std Deviation 49.1 H RDW Coeff of Heath 14.6 Plt Count 262 MPV 12.2 H Immature Gran % (Auto) 0.300 Neut % (Auto) 34.5 L Lymph % (Auto) 59.6 H [place] % (Auto) 5.0 Eos % (Auto) 0.3 Baso % (Auto) 0.3 Absolute Neuts (auto) 7.9 H Absolute Lymphs (auto) 13.56 H Nucleated RBC % 0 Differential Comment SCANNED Diff Path Review May foll Smudge Cells 1+ H ESR 34 H Sodium 139 Potassium 4.4 Chloride 106 Carbon Dioxide 29.0 Anion Gap 4 L BUN 13 Creatinine 0.84 Estim Creat Clear Calc 87.08 Est GFR (MDRD) Af Amer 118 Est GFR (MDRD) Non-Af 98 BUN/Creatinine Ratio 15.4 Glucose 91 Calcium 8.6 C-React Prot Ext Range 62.10 H Discharge Plan Triage Chief Complaint: Cellulitis ED Provider: Kiersten Aguilar Dx/Rx/DC Orders Clinical Impression: Venous insufficiency of both lower extremities, Hypertension, Bilateral leg u lcer, Noncompliance Instructions: ED Hypertension, Established, ED Venous Leg Ulcer, ED Wound Care Prescriptions: New lisinopril 10 mg tablet 10 mg PO DAILY Qty: 14 0RF sulfamethoxazole-trimethoprim [Bactrim DS] 800-160 mg tablet 1 tab PO Q12H Qty: 20 0RF No Action lisinopril 10 MG tablet 10 mg PO DAILY Label Comments: Blood pressure sulfamethoxazole-trimethoprim [Bactrim DS] 800-160 mg tablet 1 tab PO BID Qty: 20 0RF sulfamethoxazole-trimethoprim [Bactrim] 400-80 mg tablet 1 tab PO DAILY Qty: 20 0RF Other Ambulatory Orders: Wound Care Referral (Routine) Timeframe: 3 Days Facility: [facility] Ordered By: Dr. Kiersten Aguilar Primary Care Provider: Anthony Vang Referrals: Anthony Vang MD [Primary Care Provider] - Tan Nogueira MD [Med Staff - Active Staff] - As soon as possible Disposition Disposition: Home, Self Care Discharge Date/Time: 05/18/22 19:33
[2022-05-18 16:49] VITALS: BP 175/111; PULSE 99; RESP 18; TEMP 36.4; O2SAT 97
[2022-05-18 17:07] LABS: Absolute Lymphocyte Count 13.56 X10^3/uL (0.83-4.51); Absolute Neutrophil Count 7.9 X10^3/uL (2.0-7.7); Basophil# 0.07 X10^3/uL; Basophil% 0.3 % (0-1); Eosinophil# 0.06 X10^3/uL; Eosinophils% 0.3 % (0-5); Hematocrit 37.8 % (40-54); Hemoglobin 12.8 g/dL (13.0-16.5); Lymphocyte # 13.56 X10^3/ul (0.83-4.51); Lymphocyte % 59.6 % (19-41); Mean Corp Hgb Conc 33.9 g/dL (32-36); Mean Corpuscular Hgb 31.3 pg (27.0-32.0); Mean Corpuscular Volume 92.4 fL (80-94); Mean Platelet Vol. 12.2 fl (6.2-12.0); Monocyte# 1.14 X10^3/uL; NRBC Flagged by Analyzer 0 % (0-5); Neutrophil # 7.88 X10^3/uL (2.7-7.7); Neutrophil % 34.5 % (47-70); POSITIVE DIFFERENTIAL YES; Platelet Count 262 K/mm3 (150-450); RBC Distribution Width CV 14.6 % (11.6-14.6); RBC Distribution Width SD 49.1 fl (35.1-43.9); Red Blood Count 4.09 M/mm3 (4.6-6.2); White Blood Count 22.8 K/mm3 (4.4-11.0)
[2022-05-18 17:09] LABS: Differential Indicated SCAN CRITERIA MET
[2022-05-18 17:19] LABS: Erythrocyte Sedimentation Rate 34 mm/hr (0-20)
[2022-05-18 17:21] LABS: Anion Gap 4 (5-15); BUN 13 mg/dL (7-18); BUN/Creat Ratio 15.4 RATIO (10-20); Calcium,Total 8.6 mg/dL (8.5-10.1); Chloride 106 mmol/L (98-107); Creatinine, Serum 0.84 mg/dL (0.70-1.30); EST Glomerular Filtration Rate 98 mL/min (>60); Est Glom Filt Rate - Afr Amer 118 mL/min (>60); Estimated Creatinine Clearance 87.08 ml/min; Glucose 91 mg/dL (74-106); Potassium 4.4 mmol/L (3.5-5.1); Sodium Level 139 mmol/L (136-145)
[2022-05-18 17:55] LABS: Differential Comment SCANNED
[2022-05-18 17:59] LABS: Smudge Cells 1+
[2022-05-18] MEDS: Lisinopril 10 MG Tablet PO (19:20)
[2022-05-18] MEDS: Smz/Tmp Ds Tablet 1 TABLET PO (19:20)
[2022-05-18 19:23] VITALS: BP 164/94; BP 167/94; PULSE 100; PULSE 99; RESP 20; O2SAT 96; O2SAT 99
[2022-05-19 12:59] LABS: Pathologist Review Reviewed
== END 2022-05-18 19:33 | disposition home or self-care (01) ==
PROVIDERS: Emergency Provider Emergency Medicine; PCP Family Medicine; Visit Provider Emergency Medicine
DX: I87.2 Venous insufficiency (chronic) (peripheral) (principal); L97.929 Non-pressure chronic ulcer of unspecified part of left lower leg with unspecified severity; L97.919 Non-pressure chronic ulcer of unspecified part of right lower leg with unspecified severity; I10 Essential (primary) hypertension; Z91.199 Patient's noncompliance with other medical treatment and regimen due to unspecified reason
CPT/HCPCS: 80048; 85025; 85652; 86140; 99285; A4216

== ENCOUNTER 2022-12-21 13:49 | Emergency (ER) | payer MEDICARE, SELFPAY ==
[2022-12-21 13:50] VITALS: BP 147/87; PULSE 83; RESP 20; TEMP 37.7; O2SAT 96; BMI 35.4
[2022-12-21 14:18] VITALS: BP 145/82; PULSE 85; RESP 20; TEMP 36.8; O2SAT 98
--- NOTE | 2022-12-21 14:23 | CT_ITS ---
EXAM: CT MAXILLOFACIAL WITH INTRAVENOUS CONTRAST CLINICAL INDICATION: abscess? ORAL SURGERY 2 MONTHS AGO, HISTORY OF MELANOMA TECHNIQUE: Helically acquired images were obtained of the face with intravenous contrast. This CT exam was performed using one or more of the following dose reduction techniques: automated exposure control, adjustment of the mA and/or kV according to patient size, and/or use of iterative reconstruction technique. CONTRAST: IV 100mL Isovue-370 RADIATION DOSE: CTDIvol = 25.01 mGy, DLP = 573.67 mGy-cm COMPARISON: No relevant prior studies available. FINDINGS: BONES/JOINTS: Unremarkable. No displaced fracture. No discrete lytic or blastic abnormalities. SOFT TISSUES: Unremarkable. No focal subcutaneous swelling. No discrete fluid collections. LYMPH NODES: Prominent submandibular lymph nodes. Enlarged lymph nodes around the parotid gland. ORBITS: Unremarkable. Both globes are unremarkable. Extraocular muscles are normal. Retrobulbar fat appears unremarkable. SUBMANDIBULAR/PAROTID GLANDS: Complex fluid collection in the left parotid gland measuring 19 x 13 mm. The differential includes necrotic neoplasm or left parotid abscess. The later is favored given the history. SINUSES: Unremarkable as visualized. Clear. MASTOID AIR CELLS: Unremarkable as visualized. Clear. DENTAL: No acute findings. No periodontal osseous erosion. CT/Sinus/Facial Bone WITH Contras IMPRESSION: Complex fluid collection in the left parotid gland measuring 19 x 13 mm. The differential includes necrotic neoplasm or left parotid abscess. The later is favored given the history. Electronically Signed: Jim Lemons MD at 16:06 EDT ,
--- NOTE | 2022-12-21 14:25 | EX.ED.DYSGE1 ---
HPI History of Present Illness Chief Complaint: Cellulitis Detail of Chief Complaint: Facial swelling Informant: patient and family Onset/Context/Timing Onset: Weeks Narrative Narrative: Patient presents with 6-week history of left-sided facial swelling. Patient reportedly went to ENT about 2 months ago and had a very small lump just anterior to the left ear. 2 weeks later he was taken to the urgent care when the lump had doubled in size. For member at bedside states they gave him an antibiotic and asked him to follow-up with a dentist. Dentist did x-rays and reported that there were no obvious abnormalities with his teeth, but did recommend he follow-up with an oral surgeon which is scheduled for later this month. Over the last several days the lump has significantly enlarged in size and become painful. For member believes he has had fever the past day or 2 but does not know what his temperature was. PFSH PFS Medical History Cellulitis of both lower extremities Edema of both legs HTN (hypertension) Melanoma Mental deficiency Noncompliance Stasis dermatitis of both legs Ulcer of left lower leg Ulcer of right lower extremity with fat layer exposed Home Medications lisinopril 10 mg tablet 10 mg PO DAILY BP 12/15/16 [History Last Taken 10/08/21] amoxicillin 875 mg-potassium clavulanate 125 mg tablet 1 tab PO BID #20 tabs 12/21/22 [Rx Last Taken Unknown] prednisone 10 mg tablet 10 mg PO DAILY #48 TABLETS 12/21/22 [Rx Last Taken Unknown] Allergy/AdvReac Type Severity Reaction Status Date / Time No Known Allergies Allergy Verified 12/21/22 13:50 Surgical History H/O melanoma excision History of skin graft Social History Smoking Status: Never smoker ROS ROS ED Review of Systems ROS Unobtainable: due to mental condition EXAM Physical Exam Const Vital Signs: 12/21/22 13:50 12/21/22 14:18 12/21/22 14:22 Temperature 99.8 F H 98.3 F Temperature Source Temporal Oral Pulse Rate 83 85 Respiratory Rate 20 H 20 H Respiratory Effort Normal Non-Labored Respiratory Pattern Irregular Blood Pressure 147/87 H 145/82 H Blood Pressure Mean 107 103 Pulse Ox 96 98 Oxygen Delivery Method Room Air Room Air 12/21/22 16:14 12/21/22 16:29 Temperature Temperature Source Pulse Rate Respiratory Rate 20 H Respiratory Effort Respiratory Pattern Blood Pressure 148/84 H Blood Pressure Mean 105 Pulse Ox Oxygen Delivery Method Room Air Positive well nourished and well developed General Appearance ED: well developed HEENT Reports moist mucous membranes HEENT Narrative: Large firm swollen area just anterior to the left ear. No open wounds or drainage. Eyes EOMs intact bilaterally Chest Wall inspection of chest normal and palpation of chest normal Resp normal respiratory effort and clear to auscultation bilaterally Cardio regular rate and regular rhythm GI non-tender Palpation: soft Extremity normal to inspection Neuro Neuro Narrative: Alert and follows commands appropriately. MDM MDM MDM Narrative Medical decision making narrative: Labwork obtained to evaluate for leukocytosis, anemia, and electrolyte derangement. CT scan of the facial bones obtained with IV contrast to evaluate for abscess. Lab Data Attestation: I reviewed the patient's lab results. Labs: Laboratory Results - last 24 hr 12/21/22 14:45 WBC 27.1 H RBC 4.32 L Hgb 13.4 Hct 39.7 L MCV 91.9 MCH 31.0 MCHC 33.8 RDW Std Deviation 49.3 H RDW Coeff of Heath 14.6 Plt Count 244 MPV 11.4 Immature Gran % (Auto) 0.400 Neut % (Auto) 40.9 L Lymph % (Auto) 52.5 H [place] % (Auto) 5.6 Eos % (Auto) 0.3 Baso % (Auto) 0.3 Absolute Neuts (auto) 11.1 H Absolute Lymphs (auto) 14.20 H Nucleated RBC % 0 Differential Comment Diff Path Review May foll ESR 13 Sodium 138 Potassium 4.8 Chloride 106 Carbon Dioxide 30.0 Anion Gap 2 L BUN 15 Creatinine 0.90 Estim Creat Clear Calc 81.28 Est GFR (MDRD) Af Amer 109 Est GFR (MDRD) Non-Af 90 BUN/Creatinine Ratio 16.6 Glucose 105 Calcium 9.2 C-React Prot Ext Range 29.00 H Radiography Diagnostic Testing: Clinical Impression(s) from Imaging Studies Facial/Sinus 12/21/22 14:23 IMPRESSION: Complex fluid collection in the left parotid gland measuring 19 x 13 mm. The differential includes necrotic neoplasm or left parotid abscess. The later is favored given the history. Electronically Signed: Jim Lemons MD at 16:06 EDT , Treatment and Re-Evaluation :: White count is 27.1 with normal differential. On review of records patient's white count has elevated from 18-1/2 up to 24 over the past 3 years. Chemistry studies are unremarkable with normal renal function. His CRP is 29. His sed rate is normal at 13. CT scan of the facial bones with contrast reveals a complex fluid collection in the left parotid gland measuring 19 x 13 mm. Differential includes necrotic neoplasm or left parotid abscess. I spoke with Dr. Cast, on-call for ENT as patient is known to this group. He reviewed the images. He would like patient placed on Augmentin and steroids. He wants to see the patient in the office on for repeat evaluation. This is been discussed with caregiver at bedside and they are in agreement with the plan. Initial dose of medication we given here with prescription sent to [facility] pharmacy. Addendum: Just prior to the patient leaving Dr. Cast did call back in. After further review of the imaging he asked that the patient be given an IV dose of Unasyn and Decadron prior to discharge. He will see the patient in the office on Wednesday. Discharge Plan Triage Chief Complaint: Cellulitis ED Provider: Georgiana Hidalgo Dx/Rx/DC Orders Clinical Impression: Abscess of parotid gland Instructions: ED Salivary Gland Infection Prescriptions: New amoxicillin-pot clavulanate 875-125 mg tablet 1 tab PO BID Qty: 20 0RF prednisone 10 mg tablet 10 mg PO DAILY Qty: 48 0RF Rx Instructions: 6 po qd x 3 days, 4 po qd x 3 days, 2 po qd x 3 days, 1 po qd x 3 days No Action lisinopril 10 MG tablet 10 mg PO DAILY Patient Comments: Blood pressure Primary Care Provider: Anthony Vang Referrals: Anthony Vang MD [Primary Care Provider] - Berhane Cast MD [Med Staff - Active Staff] - 12/24/22 Activity Restrictions/Additional Instructions: As discussed, Dr. Cast would like to see you in the office on . Please call his office tomorrow and advise that you were seen in the emergency room and we spoke with Dr. Cast. Please take the antibiotics and steroids as prescribed. Return for worsening symptoms or concerns. Disposition Disposition: Home, Self Care Discharge Date/Time: 12/21/22 16:35
[2022-12-21 14:53] LABS: Absolute Neutrophil Count 11.1 X10^3/uL (2.0-7.7); Basophil# 0.07 X10^3/uL; Basophil% 0.3 % (0-1); Eosinophil# 0.09 X10^3/uL; Eosinophils% 0.3 % (0-5); Hematocrit 39.7 % (40-54); Hemoglobin 13.4 g/dL (13.0-16.5); Lymphocyte % 52.5 % (19-41); Mean Corp Hgb Conc 33.8 g/dL (32-36); Mean Corpuscular Volume 91.9 fL (80-94); Mean Platelet Vol. 11.4 fl (6.2-12.0); Monocyte# 1.51 X10^3/uL; Monocyte% 5.6 % (0-10); NRBC Flagged by Analyzer 0 % (0-5); Neutrophil # 11.09 X10^3/uL (2.7-7.7); Neutrophil % 40.9 % (47-70); POSITIVE DIFFERENTIAL YES; Platelet Count 244 K/mm3 (150-450); RBC Distribution Width CV 14.6 % (11.6-14.6); RBC Distribution Width SD 49.3 fl (35.1-43.9); Red Blood Count 4.32 M/mm3 (4.6-6.2); White Blood Count 27.1 K/mm3 (4.4-11.0)
[2022-12-21 14:55] LABS: Differential Indicated SCAN CRITERIA MET
[2022-12-21 15:05] LABS: Erythrocyte Sedimentation Rate 13 mm/hr (0-20)
[2022-12-21 15:08] LABS: Anion Gap 2 (5-15); BUN 15 mg/dL (7-18); BUN/Creat Ratio 16.6 RATIO (10-20); Calcium,Total 9.2 mg/dL (8.5-10.1); Chloride 106 mmol/L (98-107); EST Glomerular Filtration Rate 90 mL/min (>60); Est Glom Filt Rate - Afr Amer 109 mL/min (>60); Estimated Creatinine Clearance 81.28 ml/min; Glucose 105 mg/dL (74-106); Potassium 4.8 mmol/L (3.5-5.1); Sodium Level 138 mmol/L (136-145)
[2022-12-21 16:14] VITALS: RESP 20
[2022-12-21] MEDS: predniSONE 20 MG Tablet 60 MG PO (16:27)
[2022-12-21] MEDS: Amox/Clavulanate 875 MG Tablet PO (16:27)
[2022-12-21 16:29] VITALS: BP 148/84
[2022-12-21] MEDS: dexAMETHasone 10 MG/ML Vial IV (17:22)
[2022-12-23 09:42] LABS: Pathologist Review Reviewed
== END 2022-12-21 18:03 | disposition home or self-care (01) ==
PROVIDERS: Emergency Provider Emergency Medicine; PCP Family Medicine; Visit Provider Emergency Medicine
DX: K11.3 Abscess of salivary gland (principal); I10 Essential (primary) hypertension; Z79.52 Long term (current) use of systemic steroids
CPT/HCPCS: 70487; 80048; 85025; 85652; 86140; 96365; 96375; 99282; Q9967; J0295

== ENCOUNTER → 2023-01-25 | Outpatient (CLI) | payer MEDICARE, SELFPAY ==
--- NOTE | 2023-01-25 | ASPOS_PTH ---
PATIENT: ALLEY FORTE LOC: [facility] U#:[id number] AGE/SX: 63/M ROOM: RE01/25/[address]: Dr. Berhane Cast MD : 1960 BED: DIS: 01/25/2023 SPEC #: [id number] RECD: 01/25/23 10:34 STATUS: [place] RANGEL #: [id number] DANIEL: 01/25/23 00:[address]: Berhane aCst DEPT: CYTOLOGY RECD BY: Crow Easley ENTERED: 01/25/23 10:35 SP TYPE: ASP HERE OTHR DR: Dr. Anthony Vang MD Tissues: Parotid gland, NOS Procedures: Surgery Specimen Level IV Cytology Other Fine Needle Asp on Site HEADER OPERATION: Fine needle aspiration left parotid gland PRE-OP DIAGNOSIS: Left parotid mass TISSUE SUBMITTED: Left parotid gland DIAGNOSIS CYTOLOGY Fine needle aspiration, left parotid gland (smears and cell block): Polymorphous lymphocytes present. See comment. AM:laura 01/26/2023 COMMENT A fine needle aspiration was performed and the specimen is evaluated at the time of FNA by Dr. Ward. Immediate Evaluation = Polymorphous lymphocytes present. Immunohistochemistry ([id number]) supports the above diagnosis and reveals a polytypic profile in a limited sample CYTOLOGY STUDY Slides are reviewed. CYTOLOGY GROSS Received is 0.2 ml of reddish fluid labeled with the patient's name, and designated left parotid gland. Four imprints and two paps are made from the submitted fluid and the rest is added to CytoLyt for cell block preparation. Submitted for cytology study. / AM:laura 01/25/2023 TC:5 CPT: 28034, 85854, 68216, 20452
--- NOTE | 2023-01-25 | IMM_PTH ---
PATIENT: ALLEY FORTE LOC: [facility] U#:[id number] AGE/SX: 63/M ROOM: RE01/25/[address]: Dr. Berhane Cast MD : 1960 BED: DIS: 01/25/2023 SPEC #: [id number] RECD: 01/26/23 14:10 STATUS: [place] REQ #: [id number] DANIEL: 01/25/23 00:[address]: Berhane Cast DEPT: IMMUNOHISTOCHEMISTRY RECD BY: Mary Gill ENTERED: 01/26/23 14:11 SP TYPE: IMMUNO OTHR DR: Dr. Anthony Vang MD Tissues: Parotid gland, NOS Procedures: CD20 (add) CD5 (add) CD79A (add) CD3 (initial) PHYSICIAN & INSTITUTION [place] [id number] SPECIMEN INFORMATION: Tissue Source: Left parotid gland Clinical Info: Left parotid mass Specimen Number: [id number] CPT code: 74251, 64089 x3 METHODOLOGY: Deparaffinized sections of prefer/formalin-fixed tissue or PAP/DQ stained slides are incubated with monoclonal/polyclonal antibodies/oligonucleotide probes. Localization is made via biotin free immunoperoxidase method. Appropriate controls are performed and reacted as expected. Results on target cell population are indicated in the following table: RESULTS: ANTIBODY / CLONE RESULT CD3 (PS1) positive CD5 (SP10) positive CD20 (L26) positive CD79a (11E3) positive These tests were developed and their performance characteristics determined by [facility]. They may not have been cleared or approved by the U.S. Food and Drug Administration. The FDA has determined that such clearance or approval is not necessary. The above immunohistochemical/dualISH markers are ordered and reviewed by the Pathologist. INTERPRETATION: Left parotid gland (cell block): - Consistent with polytypic lymphoid cells Note: The specimen is markedly hypocellular. A diff quick stained smear was reprocessed for CD20 and is negative AM:moiz 01/27/23
== END | disposition home or self-care (01) ==
LOC: LAB 08:46
PROVIDERS: PCP Family Medicine; Referring Provider Otolaryngology; Visit Provider Otolaryngology
DX: K11.8 Other diseases of salivary glands (principal)
CPT/HCPCS: 10021; 88161; 88305; 88341; 88342

== ENCOUNTER 2023-09-01 23:28 | Inpatient (IN) | payer MEDICARE, SELFPAY ==
[2023-09-01 23:28] VITALS: BP 169/98; PULSE 97; RESP 18; TEMP 36.6; O2SAT 96; BMI 40.1
--- NOTE | 2023-09-01 23:45 | CT_ITS ---
INDICATION: Mental status change EXAMINATION: CT BRAIN - CT Head or Brain W/O Contrast Injection TECHNIQUE: Multiple axial images were obtained of the head without intravenous contrast. A radiation dose optimization technique was used for this scan. IV Contrast dosage and agent: None. RADIATION DOSAGE (If Supplied By Facility): CTDIvol = ( 44.99 ) mGy, DLP = ( 914.22 ) mGycm COMPARISON: None. FINDINGS: BRAIN: No acute bleed. No edema. Carl-white matter differentiation is maintained. VENTRICLES AND SULCI: Not dilated. EXTRA-AXIAL: No acute extra-axial hematoma or mass. Retrocerebellar CSF attenuation collection likely arachnoid cyst. CALVARIUM / SKULL BASE: Unremarkable. FACE/SINUSES: Mucosal thickening in the maxillary sinuses. SOFT TISSUES: Unremarkable. CT/Brain/Head without Contrast IMPRESSION: No acute abnormality. CT angiogram and/or MRI may be helpful to evaluate for acute infarct as clinically indicated. Electronically Signed: Saloni Ram MD at 1:13 EDT ,
--- NOTE | 2023-09-01 23:46 | CT_ITS ---
EXAM: CT Abdomen And Pelvis W/ Contrast Injection HISTORY: Abdominal Pain TECHNIQUE: Routine protocol CT abdomen pelvis. IV Contrast: IV 100mL Isovue-370 . Oral Contrast: without. Sagittal and coronal images were reconstructed. RADIATION DOSAGE (If Supplied By Facility): CTDIvol = ( 17.07 ) mGy, DLP = ( 1435.00 ) mGycm Individualized dose optimization techniques were used for this CT. COMPARISON: Report of CT abdomen and pelvis 02/13/2018, images not available. LIMITATIONS: None. FINDINGS: LOWER CHEST: Bilateral hilar adenopathy most pronounced on the right. Cardiomegaly. Lung bases are clear. LIVER: Unremarkable. GALLBLADDER/BILE DUCTS: Unremarkable. PANCREAS: Mild relative fullness of the pancreatic head with indistinct margins. Mild adjacent stranding. SPLEEN: Unremarkable. ADRENAL GLANDS: Unremarkable. KIDNEYS / URETERS: Unremarkable. BOWEL / MESENTERY: Wall thickening of the duodenum 1st-2nd portion. No bowel obstruction. Mild stranding of the mesentery. Multiple enlarged lymph nodes throughout the mesentery. APPENDIX: Not identified. PERITONEUM: No free air. Small amount of free fluid in the lower abdomen. VESSELS: Abdominal aorta is normal caliber. RETROPERITONEUM: Multiple enlarged lymph nodes periaortic, retrocaval, retrocrural, celiac axis, iliac chains and pelvic sidewall bilaterally. Largest aortocaval node is 1.4 cm in short axis. REPRODUCTIVE ORGANS: Unremarkable. BLADDER: Unremarkable. ABDOMINAL WALL: Enlarged inguinal lymph nodes bilaterally. BONES: No acute abnormality. OTHER: Tub Puller view shows widening of the superior mediastinum with rightward displacement of the trachea possible mass or adenopathy. The comparison report CT abdomen and pelvis 02/23/2018 described mesenteric and retroperitoneal lymph nodes of not greater than 1 cm short axis. The above described current findings appear greater than previously described findings. CT/Abdomen/Pelvis W IV Cont ONLY IMPRESSION: Extensive adenopathy including retroperitoneal, retrocrural, mesenteric, inguinal, and lower chest bilateral hilar adenopathy. Tub Puller view included the chest, with widening of the superior mediastinum, presumed adenopathy given the other findings, versus other mass. Duodenal wall thickening with indistinct adjacent pancreatic head. Findings may be inflammatory pancreatitis, duodenitis, or other process or malignancy. Mild nonspecific mesenteric stranding. Electronically Signed: Saloni Ram MD at 1:25 EDT ,
--- NOTE | 2023-09-01 23:47 | EX.ED.DYSGE1 ---
HPI History of Present Illness Chief Complaint: General Illness Narrative Narrative: 63-year-old male presents via EMS with abdominal pain, nausea, and vomiting. His history and physical is mildly limited secondary to him being a poor historian. Reported that he has multiple myeloma. Additionally, his father recently , and he states to the RN that he lives on his own. He states that he started to not feel well today and has had 2 episodes of nausea and vomiting. He also complains of diffuse abdominal pain. No exacerbating or alleviating factors. He has an abrasion on his skull, but states that he has not fallen. He may have scratched the area inadvertently. [facility] Medical History Cellulitis of both lower extremities Edema of both legs HTN (hypertension) Melanoma Mental deficiency Noncompliance Stasis dermatitis of both legs Ulcer of left lower leg Ulcer of right lower extremity with fat layer exposed Home Medications lisinopril 10 mg tablet 10 mg PO DAILY BP 12/15/16 [History Last Taken 10/08/21] amoxicillin 875 mg-potassium clavulanate 125 mg tablet 1 tab PO BID #20 tabs 12/21/22 [Rx Last Taken Unknown] prednisone 10 mg tablet 10 mg PO DAILY #48 TABLETS 12/21/22 [Rx Last Taken Unknown] Allergy/AdvReac Type Severity Reaction Status Date / Time No Known Allergies Allergy Verified 12/21/22 13:50 Surgical History H/O melanoma excision History of skin graft Social History Smoking Status: Never smoker ROS ROS ED ROS Narrative Limited secondary to patient mental status. Constitutional: No fever, no chills. HEENT: No sore throat. No neck pain. No loss of vision. No rhinorrhea. Cardiovascular: No chest pain. No palpitations. No pedal edema. Respiratory: No cough, no shortness of breath. Abdominal: Positive diffuse abdominal pain. 2 episodes of nausea and vomiting. Genitourinary: No dysuria. No hematuria. Musculoskeletal: No myalgias. No arthralgias. Neurologic: No headaches. No dizziness. No lightheadedness. Skin: No rash. No change in color. Psychiatric: No depression. No anxiety. Review of Systems ROS Unobtainable: due to mental condition and other Details: Patient is a poor historian. In review of his problem list, it is listed as mental deficiency. EXAM Physical Exam Narrative Exam Narrative: Afebrile. Vital signs noted. HEENT: Normocephalic. Positive abrasion on anterior scalp. Noted skull deformities consistent with multiple myeloma. PERRL, EOMI. Neck soft and supple. No point tenderness or step off. Cardiovascular: Regular rate and rhythm. No murmurs, rubs, or gallops appreciated. Respiratory: No tachypnea. Lungs clear to auscultation bilaterally. Gastrointestinal: Abdomen soft, nontender, with normoactive bowel sounds. No rebound or guarding. Questionable mild distention. Neurological: Awake. Alert. Distracted. Asks for TV instead of answering any questions. Nonfocal, nonlateralizing. Skin: No rash. Normal color. No pallor. Musculoskeletal: Positive bilateral pedal edema. Full range of motion extremities. Const Vital Signs: 09/01/23 23:28 09/01/23 23:28 09/02/23 01:29 Temperature 98 F Temperature Source Temporal Pulse Rate 97 82 Respiratory Rate 18 18 Respiratory Effort Normal Non-Labored Blood Pressure 169/98 H 176/100 H Blood Pressure Mean 121 125 Pulse Ox 96 96 Oxygen Delivery Method Room Air Room Air MDM MDM MDM Narrative Medical decision making narrative: In the differential diagnosis is bowel obstruction versus pancreatitis versus nonspecific abdominal pain. I am unsure if the abrasion on his anterior scalp would be from a fall. Hence I feel CT imaging is indicated. Comprehensive workup will be pursued to look for the cause of his nausea and vomiting as he may have a gastritis as well. He is afebrile here. Comprehensive workup was pursued. I reviewed his laboratory work and he has a leukocytosis of 36.5. While he has chronic leukocytosis in the 20s, this is higher than normal/his baseline. Hemoglobin 12.5, hematocrit 38.4, platelet count normal at 288. Review of his electrolyte panel shows normal sodium of 140 with potassium normal at 4.4, BUN of 17 and creatinine 1.20. Lipase is normal at 22 so I have low suspicion for acute pancreatitis. Urinalysis shows WBCs 10-25 with 50-100 RBCs. There is 1+ bacteria. I will send this for culture and start him on Zosyn. CT of the brain was obtained and I reviewed the radiology report which shows no acute process. Of concern is a CT of the abdomen pelvis with IV contrast. There shows extensive adenopathy, and duodenitis and portions 1-2. There is concern on the lead cytogenetic technologist view that he has hilar lymph adenopathy versus other mass. I reviewed his problem list and he has been noncompliant in the past, and currently states that he does not follow-up with a acid dipper oncologist. I discussed patient with Dr. Mo. Given his extensive lymphadenopathy, there is concern of his reported multiple myeloma being active. He has a leukocytosis, although could be chronic, he would like a lactic acid ordered. I will also obtain blood cultures. He was started on Zosyn for his UTI intravenously and urine culture pending. He would also like him to have IV Protonix for his duodenitis. At this point in time, I do feel that as he needs to be admitted, most likely social work will need to be involved. The hospitalist did request that the patient be admitted to the ICU overnight. History & Record Review Discussion w/independent historian: EMS personnel and Patient Additional record(s) reviewed:: Prior outpatient record Lab Data Attestation: I reviewed the patient's lab results. Labs: Laboratory Results - last 24 hr 09/01/23 09/02/23 23:52 00:43 WBC 36.5 H* RBC 4.09 L Hgb 12.5 L Hct 38.4 L MCV 93.9 MCH 30.6 MCHC 32.6 RDW Std Deviation 49.5 H RDW Coeff of Heath 14.5 Plt Count 288 MPV 12.5 H Immature Gran % (Auto) 1.100 H Neut % (Auto) 37.6 L Lymph % (Auto) 56.2 H Power % (Auto) 4.8 Eos % (Auto) 0.0 Baso % (Auto) 0.3 Absolute Neuts (auto) 13.7 H Absolute Lymphs (auto) 20.51 H Nucleated RBC % 0.2 [address] Review May foll Anisocytosis 1+ Macrocytosis 1+ Sodium 140 Potassium 4.4 Chloride 107 Carbon Dioxide 29.0 Anion Gap 4 L BUN 17 Creatinine 1.20 Estim Creat Clear Calc 78.25 Est GFR (MDRD) Af Amer 78 Est GFR (MDRD) Non-Af 65 BUN/Creatinine Ratio 14.2 Glucose 184 H Calcium 8.8 Total Bilirubin 0.70 AST 27 ALT 21 Alkaline Phosphatase 71 Total Protein 7.1 Albumin 3.3 Globulin 3.8 Albumin/Globulin Ratio 0.9 Lipase 22 Urine Color Yellow Urine Clarity Cloudy Urine pH 5.0 Ur Specific [place] 1.025 Urine Protein 100 H Urine Glucose (UA) Normal Urine Ketones Negative Urine Occult Blood 250 H Urine Nitrite Negative Urine Bilirubin Negative Urine Urobilinogen 1 H Ur Leukocyte Esterase 25 H Urine RBC 50-100 SEEN Urine WBC 10-25 SEEN Ur Squamous Epith Cells 0-5 SEEN Uric Acid Crystals 1+ Urine Bacteria 1+ Urine Mucus 0 SEEN Radiography Diagnostic Testing: Clinical Impression(s) from Imaging Studies Brain CT 09/01/23 23:45 IMPRESSION: No acute abnormality. CT angiogram and/or MRI may be helpful to evaluate for acute infarct as clinically indicated. Electronically Signed: Saloni Ram MD at 1:13 EDT Reading Location ID and State: [facility] / [place] Tel , Service support , Abdomen/Pelvis CT 09/01/23 23:46 IMPRESSION: Extensive adenopathy including retroperitoneal, retrocrural, mesenteric, inguinal, and lower chest bilateral hilar adenopathy. Wood Tile Installation Helper view included the chest, with widening of the superior mediastinum, presumed adenopathy given the other findings, versus other mass. Duodenal wall thickening with indistinct adjacent pancreatic head. Findings may be inflammatory pancreatitis, duodenitis, or other process or malignancy. Mild nonspecific mesenteric stranding. Electronically Signed: Saloni Ram MD at 1:25 EDT , Discharge Plan Dx/Rx/DC Orders Clinical Impression: Leukocytosis, Nausea & vomiting, Duodenitis, UTI (urinary tract infection), Lymphadenopathy Disposition Disposition: Acute Care [facility]
[2023-09-01] MEDS: 0.9% Normal Saline (1000mL) 1,000 ML 1000 ML IV (23:54)
[2023-09-01] MEDS: Ondansetron 4 MG/2 ML Vial IV (23:56)
[2023-09-02] VITALS (28 sets, daily range): BP systolic 113–176; BP diastolic 57–103; PULSE 73–99; RESP 10–27; TEMP 36.6–37.2; O2SAT 85–100; BMI 37.1
[2023-09-02 00:20] LABS: ALB/GLOB Ratio 0.9 RATIO (0.9-2.4); AST(SGOT) 27 U/L (15-37); Alanine Aminotransfer ALT/SGPT 21 U/L (16-61); Albumin, Serum 3.3 g/dL (3.2-5.0); Alkaline Phosphatase 71 U/L (45-117); Anion Gap 4 (5-15); BUN 17 mg/dL (7-18); BUN/Creat Ratio 14.2 RATIO (10-20); Calcium,Total 8.8 mg/dL (8.5-10.1); Chloride 107 mmol/L (98-107); EST Glomerular Filtration Rate 65 mL/min (>60); Est Glom Filt Rate - Afr Amer 78 mL/min (>60); Estimated Creatinine Clearance 78.25 ml/min; Globulin 3.8 g/dL (2.2-4.2); Glucose 184 mg/dL (74-106); Lipase 22 U/L (13-75); Potassium 4.4 mmol/L (3.5-5.1); Protein, Total 7.1 g/dL (6.4-8.2); Sodium Level 140 mmol/L (136-145)
[2023-09-02 00:30] LABS: Absolute Lymphocyte Count 20.51 X10^3/uL (0.83-4.51); Absolute Neutrophil Count 13.7 X10^3/uL (2.0-7.7); Basophil% 0.3 % (0-1); Eosinophil# 0.01 X10^3/uL; Hematocrit 38.4 % (40-54); Hemoglobin 12.5 g/dL (13.0-16.5); Lymphocyte # 20.51 X10^3/ul (0.83-4.51); Lymphocyte % 56.2 % (19-41); Mean Corp Hgb Conc 32.6 g/dL (32-36); Mean Corpuscular Hgb 30.6 pg (27.0-32.0); Mean Corpuscular Volume 93.9 fL (80-94); Mean Platelet Vol. 12.5 fl (6.2-12.0); Monocyte# 1.74 X10^3/uL; Monocyte% 4.8 % (0-10); NRBC Flagged by Analyzer 0.2 % (0-5); Neutrophil # 13.73 X10^3/uL (2.7-7.7); Neutrophil % 37.6 % (47-70); POSITIVE COUNT YES; POSITIVE DIFFERENTIAL YES; POSITIVE MORPHOLOGY YES; Platelet Count 288 K/mm3 (150-450); RBC Distribution Width CV 14.5 % (11.6-14.6); RBC Distribution Width SD 49.5 fl (35.1-43.9); Red Blood Count 4.09 M/mm3 (4.6-6.2)
[2023-09-02 00:37] LABS: Differential Indicated SCAN CRITERIA MET
[2023-09-02 00:38] LABS: White Blood Count 36.5 K/mm3 (4.4-11.0)
[2023-09-02 00:47] LABS: Mucous, Urine 0 SEEN /hpf (<or=2+)
[2023-09-02 00:49] LABS: Glucose, Dipstick Normal (Normal); Ketone-Dipstick Negative (Negative); Leukocyte Esterase-Dipstick 25 /ul (Negative); Nitrite-Dipstick Negative (Negative); Occult Blood-Urine 250 /ul (Negative); Protein-Dipstick 100 mg/dl (Negative); Specific Gravity, Urine 1.025 (1.002-1.030); Urine Bilirubin Dipstick Negative (Negative); Urine Urobilinogen 1 mg/dl (Normal)
[2023-09-02 01:17] LABS: Color, Urine Yellow (Yellow)
[2023-09-02 01:18] LABS: Bacteria 1+ /hpf (None Seen); Red Blood Cells-Urine 50-100 SEEN /hpf (0-5); Squamous Epithelial Cells - UA 0-5 SEEN /hpf (0-5); Uric Acid Crystals Ur 1+ /hpf (<or=1+); Urine Clarity Cloudy (Clear); White Blood Cells 10-25 SEEN /hpf (0-5)
[2023-09-02 01:24] LABS: Anisocytosis 1+; Macrocytosis 1+
--- NOTE | 2023-09-02 01:47 | PCM.HP.STD ---
[facility] - General General Date of Admission: 09/02/23 Date of Service: 09/02/23 Chief Complaint: Abdominal pain, Nausea and Vomiting. [facility] Narrative ALLEY FORTE, is a 63 M with a past medical history of essential hypertension, morbid obesity; with BMI of 43.2 present on admission, mild mental retardation; with patient living with his father until he recently recently , medical noncompliance, chronic bilateral lower extremity swelling; with stasis dermatitis of both legs, history of cellulitis of both lower extremities, history of melanoma; status post excision with skin graft and history of active multiple myeloma; with a baseline leukocytosis of approximately 20 K who presents to [facility] ER complaining of abdominal pain, nausea and vomiting. Mr. Forte is not a fully reliable historian due to his intellectual delay and his next-of-kin who is his brother has indicated in the records that he does not want to be called about questions related to the patient's health in spite of the fact that their father has just . Apparently, the patient has been living on his own and he complained he was not feeling well earlier today with severe nausea and 2 episodes of bilious emesis. He also admits to diffuse cramping abdominal pain that is [id number] with nothing making the pain better or worse. He also was noted to have an abrasion across the superior aspect of his entire forehead and extending onto his scalp but he denied falling with the ER provider suspecting he may have scratched the area inadvertently. He denies fever, chills, shortness of breath, cough, chest pain or worsening lower extremity edema but he does admit to ongoing severe abdominal pain and nausea though he cannot fully articulate his symptoms. In the ER he underwent a CT scan of the abdomen and pelvis revealing duodenal wall thickening with indistinct pancreatic head consistent with suspected duodenitis (versus pancreatitis or malignancy) complicated by extensive adenopathy including retroperitoneal, retrocrural, mesenteric, inguinal and bilateral lower chest hilar adenopathy with a widening of the superior mediastinum due to presumed adenopathy in addition to multiple skull deformities consistent with severe multiple myeloma compounded by a urinalysis positive for acute cystitis; with microscopic hematuria plus leukocytosis of 36.5 present on admission concerning for possible sepsis with clinical evidence of acute metabolic encephalopathy in the setting of chronic baseline mental retardation with intellectual delay and medical noncompliance as this patient seems to have tragically been left without another responsible adult to help care for him and he was then admitted to the ICU for ongoing care for stay that is expected to be greater than 48 hours. [facility] Medical History Cellulitis of both lower extremities Edema of both legs HTN (hypertension) Melanoma Mental deficiency Noncompliance Stasis dermatitis of both legs Ulcer of left lower leg Ulcer of right lower extremity with fat layer exposed Home Medications lisinopril 10 mg tablet 10 mg PO DAILY BP 12/15/16 [History Last Taken 10/08/21] amoxicillin 875 mg-potassium clavulanate 125 mg tablet 1 tab PO BID #20 tabs 12/21/22 [Rx Last Taken Unknown] prednisone 10 mg tablet 10 mg PO DAILY #48 TABLETS 12/21/22 [Rx Last Taken Unknown] Allergy/AdvReac Type Severity Reaction Status Date / Time No Known Allergies Allergy Verified 09/02/23 02:22 Surgical History H/O melanoma excision History of skin graft Social History Smoking Status: Never smoker ROS ROS Narrative As noted above this patient has mild mental retardation with intellectual delay in addition to acute illness which is preventing him from being able to complete a full review of systems. Review of Systems ROS Unobtainable: due to encephalopathy and due to mental condition Vital Signs Vital Signs Vital Signs: 09/01/23 23:28 09/01/23 23:28 09/02/23 01:29 Temperature 98 F Temperature Source Temporal Pulse Rate 97 82 Respiratory Rate 18 18 Respiratory Effort Normal Non-Labored Blood Pressure 169/98 H 176/100 H Blood Pressure Mean 121 125 Pulse Ox 96 96 Oxygen Delivery Method Room Air Room Air Weight Weight: 264 lb 1.82 oz Body Mass Index (BMI) 40.1 Physical Exam Const alert Constitutional Narrative: This patient appears to be severely neglected with a large abrasion over his superior forehead extending into his scalp with severely injected sclerae and evidence of chronic venous stasis with poor care. General Appearance: cooperative Orientation / Consciousness: confused and disoriented HEENT HEENT Narrative: Patient has lumpy disfiguration of his calvarium consistent with widespread multiple myeloma with superimposed erythema and edema. Mucous membranes appear dry. Eyes EOMs intact bilaterally Eyes Narrative: Patient has severely injected sclera with excessive tear formation with pus forming over eyelashes consistent with suspected severe conjunctivitis. Neck Neck Narrative: LAD noted. Resp Resp Narrative: Diminished breath sounds throughout. Cardio regular rate and regular rhythm GI soft to palpation GI Narrative: Mild distention without significant TTP with normal bowel sounds. Extremity Extremity Narrative: Patient has evidence of chronic venous stasis that is poorly cared for. Skin Skin Narrative: Patient has evidence of chronic venous stasis dermatitis in both lower extremities. Neuro CN's II-XII intact bilaterally, moves all extremities and no focal motor deficits Sensorium / Orientation: awake, alert, oriented to person and oriented to place Speech: speech normal Psych Mood & Affect: depressed Results Medical Records Data Attestation: I reviewed the patient's medical records Lab / Micro Data Attestation: I reviewed the patient's lab results. 09/01/23 23:52 09/01/23 23:52 Labs: Laboratory Results - last 24 hr 09/01/23 23:52: WBC 36.5 H*, RBC 4.09 L, Hgb 12.5 L, Hct 38.4 L, MCV 93.9, MCH 30.6, MCHC 32.6, RDW Std Deviation 49.5 H, RDW Coeff of Heath 14.5, Plt Count 288, MPV 12.5 H, Immature Gran % (Auto) 1.100 H, Neut % (Auto) 37.6 L, Lymph % (Auto) 56.2 H, Boundary % (Auto) 4.8, Eos % (Auto) 0.0, Baso % (Auto) 0.3, Absolute Neuts (auto) 13.7 H, Absolute Lymphs (auto) 20.51 H, Nucleated RBC % 0.2, Diff Path Review May foll, Anisocytosis 1+, Macrocytosis 1+, Sodium 140, Potassium 4.4, Chloride 107, Carbon Dioxide 29.0, Anion Gap 4 L, BUN 17, Creatinine 1.20, Estim Creat Clear Calc 78.25, Est GFR (MDRD) Af Amer 78, Est GFR (MDRD) Non-Af 65, BUN/Creatinine Ratio 14.2, Glucose 184 H, Calcium 8.8, Total Bilirubin 0.70, AST 27, ALT 21, Alkaline Phosphatase 71, Total Protein 7.1, Albumin 3.3, Globulin 3.8, Albumin/Globulin Ratio 0.9, Lipase 22 09/02/23 00:43: Urine Color Yellow, Urine Clarity Cloudy, Urine pH 5.0, Ur Specific [place] 1.025, Urine Protein 100 H, Urine Glucose (UA) Normal, Urine Ketones Negative, Urine Occult Blood 250 H, Urine Nitrite Negative, Urine Bilirubin Negative, Urine Urobilinogen 1 H, Ur Leukocyte Esterase 25 H, Urine RBC 50-100 SEEN, Urine WBC 10-25 SEEN, Ur Squamous Epith Cells 0-5 SEEN, Uric Acid Crystals 1+, Urine Bacteria 1+, Urine Mucus 0 SEEN Imaging Radiology Impression Brain CT 09/01/23 23:45 IMPRESSION: No acute abnormality. CT angiogram and/or MRI may be helpful to evaluate for acute infarct as clinically indicated. Electronically Signed: Saloni Ram MD at 1:13 EDT , Abdomen/Pelvis CT 09/01/23 23:46 IMPRESSION: Extensive adenopathy including retroperitoneal, retrocrural, mesenteric, inguinal, and lower chest bilateral hilar adenopathy. Stationary Engineer Apprentice view included the chest, with widening of the superior mediastinum, presumed adenopathy given the other findings, versus other mass. Duodenal wall thickening with indistinct adjacent pancreatic head. Findings may be inflammatory pancreatitis, duodenitis, or other process or malignancy. Mild nonspecific mesenteric stranding. Electronically Signed: Saloni Ram MD at 1:25 EDT , Assessment & Plan Assessment/Plan (1) Sepsis: QUALIFIERS: Sepsis type: sepsis due to unspecified organism Sepsis acute organ dysfunction status: unspecified Qualified Code(s): A41.9 - Sepsis, unspecified organism (2) Duodenitis: (3) UTI (urinary tract infection): QUALIFIERS: Urinary tract infection type: acute cystitis Hematuria presence: with hematuria Qualified Code(s): N30.01 - Acute cystitis with hematuria (4) Leukocytosis: QUALIFIERS: Leukocytosis type: unspecified Qualified Code(s): D72.829 - Elevated white blood cell count, unspecified (5) Nausea & vomiting: QUALIFIERS: Vomiting type: bilious vomiting Qualified Code(s): R11.14 - Bilious vomiting (6) Metabolic encephalopathy: PLAN: Plan 1. CT evidence of acute duodenitis with severe duodenal wall thickening and indistinct pancreatic head with leukocytosis of 36.5 present on admission concerning for possible sepsis - Admit to ICU for treatment under the sepsis protocol. Continue IV Zosyn began in the ER along with IV Protonix and keep patient strict NPO. Serialize lactates. Give Zofran 4 mg IV every 6 hours as needed for nausea. Give morphine IV as needed for severe level 6-10 out of 10 pain. Finally, we will consult Dr. Oliver of the gastroenterology service to see this patient on rounds in the a.m. for further recommendations regarding possible EGD this admission with help appreciated in advance. 2. Acute cystitis; with microscopic hematuria and severe bilateral acute conjunctivitis complicating #1 - Resume broad-spectrum IV antibiotics begun in the ER and await culture and sensitivity data. We will place on contact precautions and also start Cipro eyedrops and then monitor for improvement. 3. Severe and widespread lymphadenopathy evident on CT in the setting of known multiple myeloma with baseline white blood cell count approximately 20 compounding #1 & #2 - Continue supportive care. Due to patient's difficult social circumstances and limited intellectual capacity we will consult oncology to see this patient on rounds in the a.m. for further recommendations with help appreciated in advance. 4. Acute metabolic encephalopathy in the setting of chronic baseline mental retardation with intellectual delay and medical noncompliance as this patient has tragically been left without another responsible adult to help care for him since the recent of his father culminating in patient living at home alone and apparently unable to care for himself adding to the pathology of #1 - #3 - We we will consult case management to find next of kin to help this patient with his medical decision making or to initiate the process of having a guardian appointed by the court. 5. Essential hypertension - Hold scheduled oral antihypertensives. Give IV hydralazine as needed for systolic blood pressure greater than 160 mmHg. 6. Morbid obesity; with BMI of 43.2 present on admission - Weight loss will be recommended but is unlikely in this patient. Check TSH. 7. Chronic bilateral lower extremity swelling; with stasis dermatitis of both legs and history of cellulitis of both lower extremities - Noted with no evidence of recurrence of acute infection in his lower extremities at this time. 8. History of melanoma; status post excision with skin graft - Noted. 9. DVT prophylaxis - Lovenox 40 mg subcu daily plus SCDs. Total time: Approximately 95 minutes. Sepsis Attestation Sepsis Attestation: Sepsis Ruled Out Date exam was performed: 09/02/23 Time exam was performed: 02:20 Possible Source of Sepsis: GI tract/intra-abdominal and Genitourinary Sepsis Organ Dysfunction Criteria Present: New/Unexplained change in mental status Fluid Resuscitation Fluid resuscitation indicated?: Yes Fluid Resuscitation ordered: 30 ml/kg fluid bolus ordered Amount of fluid ordered: 3 Sepsis Note Date exam was performed: 09/02/23 Time exam was performed: 06:20 Sepsis Attestation: Sepsis re-evaluation was performed Response to fluids: Fluid responsive hypotension Charges/Coding Visit Charges Inpatient E&M: 40372 Init Hosp L3
[2023-09-02] MEDS: Pantoprazole Sodium 40 MG in 0.9% Normal Saline (100mL MB+) 100 ML 330 MG IV ×3 (02:16→21:00)
[2023-09-02 02:28] LABS: Lactic Acid 1.5 mmol/L (0.4-1.9)
[2023-09-02] MEDS: Ondansetron 4 MG/2 ML Vial IV (02:35)
[2023-09-02] MEDS: Morphine 2 MG/ML Syringe IV (02:37)
[2023-09-02] MEDS: 0.9% Normal Saline (1000mL) 1,000 ML 999 ML IV ×4 (02:50→08:23)
[2023-09-02] MEDS: Piperacil/Tazobactam 3.375 GM in 0.9% Normal Saline (50mL MB+) 50 ML IV ×3 (02:50→21:26)
--- NOTE | 2023-09-02 02:55 | ED.RN ---
Attempted to call pts brother but no answer.
[2023-09-02 03:15] LABS: Allen Test Positive; Base Excess -2 mmol/L (-2 to +2); Bicarbonate 24.4 mmol/L (22-26); Blood Gas Specimen Type ART; Mode Not entered; O2 Delivery Device Room Air; PO2 64 mmHG (75-100); SITE L Radial; SO2 90 % (95-99); Total Carbon Dioxide 26 mmol/L; pCO2 47.5 mmHg (35-45); pH 7.32 (7.35-7.45)
[2023-09-02] MEDS: Vancomycin HCl 2,000 MG in 0.9% Normal Saline (500mL Bag) 500 ML 250 MG IV (05:24)
[2023-09-02] MEDS: Ciprofloxacin 0.3% 2.5ml Bottle 2 DRP EACH EYE ×2 (05:24→11:11)
--- NOTE | 2023-09-02 05:31 | PCM.RX.CS ---
Consult Antibiotic Management Pharmacy has been consulted to manage selected antibiotic: Vancomycin Type of Intervention Type of Consult: New start Suspected Infection Suspected Infection: Sepsis Labs Labs: Sodium 140 mmol/L (136-145) 09/01/23 23:52 Potassium 4.4 mmol/L (3.5-5.1) 09/01/23 23:52 Chloride 107 mmol/L (98-107) 09/01/23 23:52 Carbon Dioxide 29.0 mmol/L (21.0-32.0) 09/01/23 23:52 Anion Gap 4 (5-15) L 09/01/23 23:52 BUN 17 mg/dL (7-18) 09/01/23 23:52 Creatinine 1.20 mg/dL (0.70-1.30) 09/01/23 23:52 Est GFR (MDRD) Af Amer 78 mL/min (>60) 09/01/23 23:52 Est GFR (MDRD) Non-Af 65 mL/min (>60) 09/01/23 23:52 BUN/Creatinine Ratio 14.2 RATIO (10-20) 09/01/23 23:52 Glucose 184 mg/dL (74-106) H 09/01/23 23:52 Microbiology Microbiology: Microbiology 09/02/23 02:28 Mucosa - Nose SARS-CoV-2, Influenza & RSV (PCR) - Final Dosing Weight Weight used for dosin.5 kg Estimated Creatinine Clearance Estimated Creatinine Clearance: 78 Goal Trough Goal Trough: 15-20 mcg/mL Pharmacy Plan for Drug Dosing Pharmacy Plan for Drug Dosing: Pharmacy Service will continue to monitor and adjust dosing as required. Follow-Up Labs Follow-Up Labs: Trough: Vancomycin Date/Time Labs Ordered Labs to be done on [date and time ordered]: 09/03/23 @1703
[2023-09-02 07:03] LABS: Lactic Acid 1.6 mmol/L (0.4-1.9)
--- NOTE | 2023-09-02 09:53 | CON.PCM.CC_ITS ---
Assessment & Plan Assessment/Plan (1) Sepsis: QUALIFIERS: Sepsis acute organ dysfunction status: unspecified Sepsis type: sepsis due to unspecified organism Qualified Code(s): A41.9 - Sepsis, unspecified organism (2) Metabolic encephalopathy: (3) Duodenitis: PLAN: Plan RECOMMENDATIONS: 1. Continue empiric antibiotics pending cultures 2. Aggressive control of blood sugars 3. Attempt to obtain further information with social situation and history 4. Wean oxygen as tolerated 5. Allow permissive hypertension for first 24 hours IMPRESSIONS: 1. Sepsis of unclear origin Patient has multiple areas suggestive of infection including a positive urinalysis, duodenitis and potential scalp cellulitis. Patient potentially could have hematologic spread leading to findings in the abdomen. Patient does not appear to be well cared for at this time and history is very vague. Patient does have a history of staph in the past, so broad-spectrum antibiotics would be indicated. 2. Metabolic encephalopathy Unclear baseline at this time. Patient not able to provide much addit ional information, but reportedly was living independently. Patient does appear to have acute infection at this time. Will attempt to treat patient accordingly and monitor mental status. Unable to verify CODE STATUS without finding next of kin at this time. 3. Probable diabetes mellitus Patient does have an elevated glucose on presentation. It is unclear if patient has been taking baseline medications. Cover with sliding scale for now. Could consider obtaining a hemoglobin A1c, but defer to hospitalist 4. Acute hypoxic respiratory insufficiency Patient requiring 4 L nasal cannula oxygen to maintain saturations at this time. Patient did receive sepsis fluids and may have an element of pulmonary edema. Will continue to monitor closely. Cannot exclude the need for diuretics given patient still has a good blood pressure. Doubt patient would be a good candidate for BiPAP given facial erythema and current mental status. 5. Hypertension/social concerns/unclear history Complicates care, management, recovery and prognosis. Patient has both a history of melanoma and multiple myeloma scattered throughout discharge. Unclear if both or either are present. Patient does have a finding suggestive of a scalp flap with infection. Multiple myeloma may be leading to higher white blood cell counts. Addendum 1:23 PM: Spoke with patient's brother at the bedside. He reportedly went out to breakfast with the patient yesterday and thought that he was of his usual self. Patient's brother reports he does not have any recollection of the severe facial swelling, tooth or eye problems. Per the brother, they have been attempting to get him into a intermediate since June. There was some issues with a life insurance policy negating his ability to get Medicaid to join the intermediate. Patient's brother would like to help address this at discharge if possible. Patient's brother reports that the patient would not want to receive CPR, but is okay with intubation if necessary. CODE STATUS was changed accordingly. HPI Consult Data Date of Consult: 09/02/23 HPI Narrative Reason for Consultation: Sepsis HPI Narrative: ALLEY FORTE is a 63 M, with past medical history listed below, who presents to [facility] on 09[facility]2023 secondary to abdominal pain, nausea and vomiting. EMS was reportedly called to evaluate the patient and transported him to the ER. Patient reportedly lives with his father who recently and has been living on his own. Patient had complained of diffuse abdominal pain. Patient is a very poor historian, so history is significantly limited. In the ER, patient was afebrile and hypertensive at 169/98 saturating well on room air. Laboratory data showed a white blood cell count of 36.5, hemoglobin of 12.5 and platelets of 288. Chemistries did show an elevated bicarbonate of 29, creatinine of 1.2 and glucose of 184. Liver enzymes were within normal limits. UA was suggestive of infection. A CT of the head showed no acute abnormality, but a CT of the abdomen and pelvis did show extensive adenopathy with duodenal wall thickening. Patient was admitted to the floor for further evaluation following sepsis fluids and antibiotics. Since admission, patient has had increased oxygen demands and is currently on 4 L. Patient denies any current pain, but additional information is difficult to obtain. Patient does state that he had melanoma surgery. Patient is not able to collaborate much more information at this time. Did attempt to call both oncology groups in town. Patient has not been seen by [place] [facility] and [facility] reports only a referral request by phone in 2019 for a plastic surgeon for melanoma. Attempts to call patient's brother have been unsuccessful. [facility] Medical History Cellulitis of both lower extremities Edema of both legs HTN (hypertension) Melanoma Mental deficiency Noncompliance Stasis dermatitis of both legs Ulcer of left lower leg Ulcer of right lower extremity with fat layer exposed Home Medications lisinopril 10 mg tablet 10 mg PO DAILY BP 12/15/16 [History Last Taken 10/08/21] amoxicillin 875 mg-potassium clavulanate 125 mg tablet 1 tab PO BID #20 tabs 12/21/22 [Rx Last Taken Unknown] prednisone 10 mg tablet 10 mg PO DAILY #48 TABLETS 12/21/22 [Rx Last Taken Unknown] Allergy/AdvReac Type Severity Reaction Status Date / Time No Known Allergies Allergy Verified 09/02/23 02:22 Surgical History H/O melanoma excision History of skin graft Social History Smoking Status: Never smoker ROS Review of Systems ROS Unobtainable: due to mental status Physical Exam Const alert General Appearance: cooperative Orientation / Consciousness: confused and disoriented HEENT HEENT Narrative: Lumpy disfiguration noted on the apex of his calvarium. Patient also has an abrasion and erythema throughout his face with swollen lips and scleral injection. Eyes EOMs intact bilaterally Eyes Narrative: Significant scleral edema and injection Neck Neck Narrative: Significant lymphadenopathy Chest inspection of chest normal Resp Effort and Inspection: actively coughing Auscultation: diminished lung sounds; Negative for rales, rhonchi or wheezes Cardio regular rate, regular rhythm, S1 normal heart sound, S2 normal heart sound, no murmurs, no rub and no gallops GI normal to inspection, nondistended, normoactive bowel sounds and soft to palpation Extremity Extremity Narrative: Chronic stasis of lower extremities Skin Skin Narrative: See above Neuro CN's II-XII intact bilaterally, moves all extremities and no focal motor deficits Sensorium / Orientation: oriented to person Psych Mood & Affect: flat affect Medical Records Data Attestation: I reviewed the patient's medical records Medical records narrative: Attempting to use social work to find further information/verification Lab / Micro Data Attestation: I reviewed the patient's lab results. Lab results narrative: Patient does have multiple previous cultures of distal wound showing Staph aureus 09/01/23 23:52 09/01/23 23:52 Labs: Laboratory Results - last 24 hr 09/01/23 23:52: WBC 36.5 H*, RBC 4.09 L, Hgb 12.5 L, Hct 38.4 L, MCV 93.9, MCH 30.6, MCHC 32.6, RDW Std Deviation 49.5 H, RDW Coeff of Heath 14.5, Plt Count 288, MPV 12.5 H, Immature Gran % (Auto) 1.100 H, Neut % (Auto) 37.6 L, Lymph % (Auto) 56.2 H, [place] % (Auto) 4.8, Eos % (Auto) 0.0, Baso % (Auto) 0.3, Absolute Neuts (auto) 13.7 H, Absolute Lymphs (auto) 20.51 H, Nucleated RBC % 0.2, Diff Path Review October, Anisocytosis 1+, Macrocytosis 1+, Sodium 140, Potassium 4.4, C hloride 107, Carbon Dioxide 29.0, Anion Gap 4 L, BUN 17, Creatinine 1.20, Estim Creat Clear Calc 78.25, Est GFR (MDRD) Af Amer 78, Est GFR (MDRD) Non-Af 65, BUN/Creatinine Ratio 14.2, Glucose 184 H, Calcium 8.8, Total Bilirubin 0.70, AST 27, ALT 21, Alkaline Phosphatase 71, Total Protein 7.1, Albumin 3.3, Globulin 3.8, Albumin/Globulin Ratio 0.9, Lipase 22 09/02/23 00:43: Urine Color Yellow, Urine Clarity Cloudy, Urine pH 5.0, Ur Specific [place] 1.025, Urine Protein 100 H, Urine Glucose (UA) Normal, Urine Ketones Negative, Urine Occult Blood 250 H, Urine Nitrite Negative, Urine Bilirubin Negative, Urine Urobilinogen 1 H, Ur Leukocyte Esterase 25 H, Urine RBC 50-100 SEEN, Urine WBC 10-25 SEEN, Ur Squamous Epith Cells 0-5 SEEN, Uric Acid Crystals 1+, Urine Bacteria 1+, Urine Mucus 0 SEEN 09/02/23 01:58: Lactic Acid 1.5 09/02/23 06:10: Lactic Acid 1.6 Micro: Microbiology 09/02/23 02:28 Mucosa - Nose SARS-CoV-2, Influenza & RSV (PCR) - Final ABG Data ABG results: ABG 09/02/23 03:12 Specimen Type ART Sample Site L Radial pH 7.32 L Bicarbonate Actual 24.4 Total CO2 26 Base Excess -2 O2 Saturation 90 L ABG pCO2 47.5 H ABG pO2 64 L Raúl Test Positive O2 Delivery Device Room Air Vent Mode Not entered Attestation: I personally reviewed and interpreted this ABG as follows: (Primary respiratory acidosis with secondary chronic metabolic alkalosis and increased AA gradient) Imaging Radiology Impression Brain CT 09/01/23 23:45 IMPRESSION: No acute abnormality. CT angiogram and/or MRI may be helpful to evaluate for acute infarct as clinically indicated. Electronically Signed: Saloni Ram MD at 1:13 EDT , Abdomen/Pelvis CT 09/01/23 23:46 IMPRESSION: Extensive adenopathy including retroperitoneal, retrocrural, mesenteric, inguinal, and lower chest bilateral hilar adenopathy. Financial Associate view included the chest, with widening of the superior mediastinum, presumed adenopathy given the other findings, versus other mass. Duodenal wall thickening with indistinct adjacent pancreatic head. Findings may be inflammatory pancreatitis, duodenitis, or other process or malignancy. Mild nonspecific mesenteric stranding. Electronically Signed: Saloni Ram MD at 1:25 EDT , Charges/Coding Visit Charges Inpatient E&M: 95511 Init Hosp L3
[2023-09-02] MEDS: Enoxaparin 40 MG/0.4 ML Syringe SC (11:10)
--- NOTE | 2023-09-02 11:44 | CASEMGMT ---
RN CM Assessment Face to Face with patient for initial transition planning/care coordination assessment. Pt is currently disoriented and is unable to answer this RN CM questions accordingly. TC to the pt NOKHuy (pt Brother) at this time. Pt brother states that he is willing to answer this RN CM questions for initial assessment. Care providers, pharmacy, and demographics verified. Admitting dx: Sepsis, Duodenitis, Acute Cystitis LACE Strata: 2 PCP: Ciera Specialists: Graciela Johnson Pharmacy: [facility] Insurance: [facility] Prescription Benefit: Yes LNOK: Huy Alonso (Brother) Living Arrangements: Pt was living with his father who 2 weeks ago. Pt is currently living alone in a 2 story home with a BM with HR throughout. Per the pt brother, the pt has a FFSU and does not need to go up or downstairs. Pt brother states there are 3 steps to enter the home with HR. ADLs/IADLs: Pt requires assistance. Per the pt brother, the pt goes to [facility]. See below. Transportation: Pt brother, pt brother's , [facility] DME: Walker and cane at home. Pt brother is unaware of any other DME the pt has. HHC/SNF: [facility] HHC history. Per Huy, the pt is provided with transportation and goes to [facility] everyday from 0900 to 1700 where they provide 2 meals and activities for the pt. The pt brother states that [facility] told the pt brother that the pt is requiring more assistance than what they can provide the pt with. Pt?s goal: Pt brother states that he and the pt have been trying to get the pt into a correction since June. The pt brother states that this is through [place] and the [facility] is located in [place]. Huy states that the pt is needing [facility] to be accepted into the correction. SW updated on this matter. Plan: TBD. Home with HH vs SNF depending on pt progression in the hospital. PT, OT, ST evaluations are pending. CM/ SW to follow in regard to safe DC from [facility]. Leola Gallegos RN, CM
--- NOTE | 2023-09-02 12:30 | CON.PCM.GI_ITS ---
HPI Consult Data Date of Consult: 09/02/23 HPI Narrative Reason for Consultation: abdominal pain HPI Narrative: ALLEY ALONSO, is a 63 M with a past medical history of essential hypertension, morbid obesity, mild mental retardation; history of active multiple myeloma; with a baseline leukocytosis of approximately 20 K who presents to [facility] ER complaining of abdominal pain, nausea and vomiting. Mr. Alonso is not a fully reliable historian due to his intellectual delay and his next-of-kin who is his brother has indicated in the records that he does not want to be called about questions related to the patient's health in spite of the fact that their father has just . Apparently, the patient has been living on his own and he complained he was not feeling well earlier today with severe nausea and 2 episodes of bilious emesis. He also admits to diffuse cramping abdominal pain that is [id number] with nothing making the pain better or worse. He also was noted to have an abrasion across the superior aspect of his entire forehead and extending onto his scalp but he denied falling with the ER provider suspecting he may have scratched the area inadvertently. He denies fever, chills, shortness of breath, cough, chest pain or worsening lower extremity edema but he does admit to ongoing severe abdominal pain and nausea though he cannot fully articulate his symptoms. In the ER he underwent a CT scan of the abdomen and pelvis revealing duodenal wall thickening with indistinct pancreatic head consistent with suspected duodenitis (versus pancreatitis or malignancy) complicated by extensive adenopathy including retroperitoneal, retrocrural, mesenteric, inguinal and bilateral lower chest hilar adenopathy with a widening of the superior mediastinum due to presumed adenopathy in addition to multiple skull deformities consistent with severe multiple myeloma. Urinalysis positive for acute cystitis; with microscopic hematuria plus leukocytosis of 36.5 present on admission concerning for possible sepsis with clinical evidence of acute metabolic encephalopathy in the setting of chronic baseline mental retardation with intellectual delay and medical noncompliance as this patient seems to have tragically been left without another responsible adult to help care for him and he was then admitted to the ICU. [facility] Medical History Cellulitis of both lower extremities Edema of both legs HTN (hypertension) Melanoma Mental deficiency Noncompliance Stasis dermatitis of both legs Ulcer of left lower leg Ulcer of right lower extremity with fat layer exposed Home Medications lisinopril 10 mg tablet 10 mg PO DAILY BP 12/15/16 [History Last Taken 10/08/21] amoxicillin 875 mg-potassium clavulanate 125 mg tablet 1 tab PO BID #20 tabs 12/21/22 [Rx Last Taken Unknown] prednisone 10 mg tablet 10 mg PO DAILY #48 TABLETS 12/21/22 [Rx Last Taken Unknown] Allergy/AdvReac Type Severity Reaction Status Date / Time No Known Allergies Allergy Verified 09/02/23 02:22 Surgical History H/O melanoma excision History of skin graft Social History Smoking Status: Never smoker ROS ROS Narrative As noted above this patient has mild mental retardation with intellectual delay in addition to acute illness which is preventing him from being able to complete a full review of systems. Review of Systems ROS Unobtainable: due to mental status Physical Exam Const alert Constitutional Narrative: This patient appears to be severely neglected with a large abrasion over his sup erior forehead extending into his scalp with severely injected sclerae and evidence of chronic venous stasis with poor care. General Appearance: cooperative Orientation / Consciousness: confused and disoriented HEENT HEENT Narrative: Patient has lumpy disfiguration of his calvarium consistent with widespread multiple myeloma with superimposed erythema and edema. Mucous membranes appear dry. Eyes EOMs intact bilaterally Eyes Narrative: Patient has severely injected sclera with excessive tear formation with pus forming over eyelashes consistent with suspected severe conjunctivitis. Neck Neck Narrative: LAD noted. Resp Resp Narrative: Diminished breath sounds throughout. Cardio regular rate and regular rhythm GI soft to palpation GI Narrative: Mild distention without significant TTP with normal bowel sounds. Extremity Extremity Narrative: Patient has evidence of chronic venous stasis that is poorly cared for. Skin Skin Narrative: Patient has evidence of chronic venous stasis dermatitis in both lower extremities. Neuro CN's II-XII intact bilaterally, moves all extremities and no focal motor deficits Sensorium / Orientation: awake, alert, oriented to person and oriented to place Speech: speech normal Psych Mood & Affect: depressed Lab / Micro Data 09/03/23 05:45 09/03/23 05:45 Labs: Laboratory Results - last 24 hr 09/01/23 23:52: Diff Path Review Reviewed 09/03/23 05:45: WBC 30.6 H*, RBC 3.60 L, Hgb 10.8 L, Hct 33.5 L, MCV 93.1, MCH 30.0, MCHC 32.2, RDW Std Deviation 49.9 H, RDW Coeff of Heath 14.6, Plt Count 270, MPV 12.2 H, Immature Gran % (Auto) 0.400, Neut % (Auto) 36.9 L, Lymph % (Auto) 58.0 H, [place] % (Auto) 4.5, Eos % (Auto) 0.0, Baso % (Auto) 0.2, Absolute Neuts (auto) 11.3 H, Absolute Lymphs (auto) 17.73 H, Nucleated RBC % 0, Diff Path Review Reviewed, Sodium 140, Potassium 4.3, Chloride 113 H, Carbon Dioxide 23.0, Anion Gap 4 L, BUN 13, Creatinine 1.14, Estim Creat Clear Calc 85.93, Est GFR (MDRD) Af Amer 83, Est GFR (MDRD) Non-Af 69, BUN/Creatinine Ratio 11.4, Glucose 122 H, Calcium 8.2 L Micro: Microbiology 09/02/23 00:02 Urine, Clean Catch Urine Culture - Final Mixed Gram Positive Organisms Imaging Radiology Impression Chest X-Ray 09/03/23 05:45 IMPRESSION: 1. Increased mediastinal and hilar prominence and new mild patchy hazy opacities in the lung bases with nonvisualization of the left hemidiaphragm. 2. Likely due to increased mediastinal and hilar adenopathy. And presumed atelectasis versus infiltrate in the lung bases. Electronically Signed: Justina Marcus MD at 7:34 EDT , Assessment & Plan Assessment/Plan (1) Sepsis: QUALIFIERS: Sepsis type: sepsis due to unspecified organism Sepsis acute organ dysfunction status: unspecified Qualified Code(s): A41.9 - Sepsis, unspecified organism (2) Duodenitis: (3) UTI (urinary tract infection): QUALIFIERS: Urinary tract infection type: acute cystitis Hematuria presence: with hematuria Qualified Code(s): N30.01 - Acute cystitis with hematuria (4) Leukocytosis: QUALIFIERS: Leukocytosis type: unspecified Qualified Code(s): D72.829 - Elevated white blood cell count, unspecified (5) Nausea & vomiting: QUALIFIERS: Vomiting type: bilious vomiting Qualified Code(s): R11.14 - Bilious vomiting (6) Metabolic encephalopathy: PLAN: Plan CT evidence of acute duodenitis with severe duodenal wall thickening and indistinct pancreatic head with leukocytosis of 36.5 present on admission concerning for possible sepsis -. He would need to undergo an EGD to look for signs of plasmacytoma in the small bowel secondary to multiple myeloma. Continue IV Zosyn began in the ER along with IV Protonix and keep patient strict NPO. Patient family was explained alternatives, risk, benefits including not withstanding bleeding, infection, sepsis, perforation, need for emergent surgery and . He will have an ASA of 3. Charges/Coding Visit Charges Inpatient E&M: 00570 Init Hosp L3
[2023-09-02 14:33] LABS: Pathologist Review Reviewed
--- NOTE | 2023-09-02 15:08 | WOUNDNOTE ---
wound photo: forehead
--- NOTE | 2023-09-02 15:09 | WOUNDNOTE ---
wound photo: left lower leg
--- NOTE | 2023-09-02 15:10 | WOUNDNOTE ---
skin photo: right lower leg
[2023-09-02] MEDS: Vancomycin HCl 1,750 MG in 0.9% Normal Saline (500mL Bag) 500 ML 250 MG IV (18:09)
--- NOTE | 2023-09-02 18:19 | CASEMGMT ---
Social Work Handoff received from [facility] Hilaria Bosch, that RN ANAMIKA assessed patient today who learned patient's brother has been working on getting patient into a fci. Noted in chart that patient as Developmental Disability and has lived with family, most recently with patient's father until the father's 2 weeks ago. Called patient's emergency contact Huy Alonso at [phone]. Introduced to self and social work role. From this conversation, learned from Pb: -Patient has lived with patient's parents entire life. Patient's mother 7-8 years ago. The father about 2 weeks ago, in sleep, at the age of 96. -Since the father's , patient has been living in the family home. Huy or Huy checking on the patient 2 times a day. -Family has been ensuring patient has food. Patient is able to prepare food in the microwave and is usually watching tv when family checks on patient. Patient was offered to go to [facility] home after the father , but patient wanted to stay at familial home until goes to the fci. -Patient takes one blood pressure pill a day and has been able to do this on own, each morning at breakfast. -Huy reports to be patient's legal guardian, and has been so, since the patient's mother 7-8 year ago.? ?Huy agrees to bring in letter of guardianship, so this can be added to patient's medical record.?This keno writer confirmed emergency contact demographics and updated in EMR.? -Patient has a food service coordinator at [facility], and Huy balderas has been working with Precious (phone did cut out a bit during this part of conversation, so uncertain if Precious accurate name).?? -alf goal: There is a a bed waiting for patient at a [facility] in [place], once patient is approved for Medicaid. The patient's father left patient a life insurance policy to be used for patient's burial, which is holding up the Medicaid process. Huy balderas has signed this over to the home about 2 weeks ago, but was told it can take up to 30 days for the transfer to properly show and to allow for patient to qualify for Medicaid. -Short term goal: Brother is agreeable for patient to return home, short term with [facility], or if needed short term to a SNF; whatever care needs the patient would benefit from. Plan: CM and SW both following for discharge needs. HHC versus SNF Monitor PT/OT recommendations Monitor for receipt of letter of guardianship. -NIKHIL Abdullahi
[2023-09-02] MEDS: 0.9% Normal Saline (250mL Bag) 250 ML 15 ML IV (20:55)
[2023-09-03] VITALS (26 sets, daily range): BP systolic 125–182; BP diastolic 65–110; PULSE 79–109; RESP 15–28; TEMP 36.9–38.3; O2SAT 80–100; BMI 38.7
--- NOTE | 2023-09-03 05:45 | RAD_ITS ---
EXAM: XR CHEST, 1 VIEW CLINICAL INDICATION: hypoxia TECHNIQUE: Frontal view of the chest. COMPARISON: February 11, 2020 and June 20, 2017 FINDINGS: LUNGS AND PLEURAL SPACES: There is stable upper limits of normal heart size. There are mild opacities in the bilateral lower lung foster with nonvisualized left hemidiaphragm, increased from ballistics tester exam for CT abdomen and pelvis yesterday. No pneumothorax. No effusion. HEART: Unremarkable. Cardiac silhouette not enlarged. MEDIASTINUM: Increased prominent mediastinal contour. Nonvisualization of the descending thoracic aorta margin. There was moderate retroperitoneal adenopathy on abdomen and pelvis CT yesterday, there is presumed mediastinal and hilar adenopathy. BONES/JOINTS: Unremarkable. No acute fracture. SOFT TISSUES: Unremarkable. LYMPH NODES: Suggestion of bilateral hilar adenopathy. RAD/Chest 1 View (Portable) IMPRESSION: 1. Increased mediastinal and hilar prominence and new mild patchy hazy opacities in the lung bases with nonvisualization of the left hemidiaphragm. 2. Likely due to increased mediastinal and hilar adenopathy. And presumed atelectasis versus infiltrate in the lung bases. Electronically Signed: Justina Marcus MD at 7:34 EDT ,
[2023-09-03] MEDS: 0.9% Saline Lock 10 ML Syringe IV ×2 (05:47→13:51)
[2023-09-03] MEDS: Vancomycin HCl 1,750 MG in 0.9% Normal Saline (500mL Bag) 500 ML 250 MG IV ×2 (05:47→18:05)
[2023-09-03] MEDS: Piperacil/Tazobactam 3.375 GM in 0.9% Normal Saline (50mL MB+) 50 ML IV ×3 (05:48→22:04)
[2023-09-03 06:01] LABS: Absolute Lymphocyte Count 17.73 X10^3/uL (0.83-4.51); Absolute Neutrophil Count 11.3 X10^3/uL (2.0-7.7); Basophil# 0.06 X10^3/uL; Basophil% 0.2 % (0-1); Eosinophil# 0.01 X10^3/uL; Hematocrit 33.5 % (40-54); Hemoglobin 10.8 g/dL (13.0-16.5); Lymphocyte # 17.73 X10^3/ul (0.83-4.51); Mean Corp Hgb Conc 32.2 g/dL (32-36); Mean Corpuscular Volume 93.1 fL (80-94); Mean Platelet Vol. 12.2 fl (6.2-12.0); Monocyte# 1.38 X10^3/uL; Monocyte% 4.5 % (0-10); NRBC Flagged by Analyzer 0 % (0-5); Neutrophil # 11.28 X10^3/uL (2.7-7.7); Neutrophil % 36.9 % (47-70); POSITIVE COUNT YES; POSITIVE DIFFERENTIAL YES; Platelet Count 270 K/mm3 (150-450); RBC Distribution Width CV 14.6 % (11.6-14.6); RBC Distribution Width SD 49.9 fl (35.1-43.9)
[2023-09-03 06:25] LABS: Differential Indicated SCAN CRITERIA MET
[2023-09-03 06:26] LABS: White Blood Count 30.6 K/mm3 (4.4-11.0)
[2023-09-03 06:37] LABS: Anion Gap 4 (5-15); BUN 13 mg/dL (7-18); BUN/Creat Ratio 11.4 RATIO (10-20); Calcium,Total 8.2 mg/dL (8.5-10.1); Chloride 113 mmol/L (98-107); Creatinine, Serum 1.14 mg/dL (0.70-1.30); EST Glomerular Filtration Rate 69 mL/min (>60); Est Glom Filt Rate - Afr Amer 83 mL/min (>60); Estimated Creatinine Clearance 85.93 ml/min; Glucose 122 mg/dL (74-106); Potassium 4.3 mmol/L (3.5-5.1); Sodium Level 140 mmol/L (136-145)
--- NOTE | 2023-09-03 08:11 | PCM.PN.INT ---
Assessment & Plan Assessment/Plan (1) Sepsis: QUALIFIERS: Sepsis type: sepsis due to unspecified organism Sepsis acute organ dysfunction status: unspecified Qualified Code(s): A41.9 - Sepsis, unspecified organism (2) Metabolic encephalopathy: (3) Duodenitis: PLAN: Plan RECOMMENDATIONS: 1. Continue empiric antibiotics pending cultures 2. Aggressive control of blood sugars 3. Social work to help with disposition planning 4. Wean oxygen as tolerated 5. Attempt diuretics IMPRESSIONS: 1. Sepsis of unclear origin Patient has multiple areas suggestive of infection including a positive urinalysis, duodenitis and potential scalp cellulitis. Patient potentially could have hematologic spread leading to findings in the abdomen. Patient does not appear to be well cared for at this time and history is very vague. Patient does have a history of staph in the past, so broad-spectrum antibiotics would be indicated. White blood cell count appears to be improving. 2. Metabolic encephalopathy Appears to be close to baseline at this time. Patient's brother did show up yesterday and was able to confirm that this is his brother's baseline. 3. Probable diabetes mellitus Patient does have an elevated glucose on presentation. It is unclear if patient has been taking baseline medications. Cover with sliding scale for now. Could consider obtaining a hemoglobin A1c, but defer to hospitalist 4. Acute hypoxic respiratory insufficiency Patient requiring 8 L nasal cannula oxygen to maintain saturations at this time. Patient did receive sepsis fluids and may have an element of pulmonary edema. Chest x-ray is now showing bilateral lower lobe infiltrates. Unclear if this is an infectious etiology versus fluid overload. Patient will be given Lasix. Doubt patient would be a good candidate for BiPAP given facial erythema and current mental status. 5. Hypertension/social concerns/unclear history Complicates care, management, recovery and prognosis. Patient has both a history of melanoma and multiple myeloma scattered throughout discharge. Unclear if both or either are present. Patient does have a finding suggestive of a scalp flap with infection. It appears as though the multiple myeloma in the patient's chart is inaccurate. Patient has had MULTIPLE MELANOMAS, per the brother Subjective Subjective Patient did okay overnight. Patient has been n.p.o. since midnight and is upset because he is hungry. Patient has had increased oxygen requirements overnight. Patient continues to refuse/deny any problems at this time. Chest x-ray was ordered this morning secondary to increased oxygen requirements Objective Data Objective Data Vital Signs: Vital Signs Temp Pulse Resp BP Pulse Ox O2 Del Method O2 Flow Rate 37.2 C 84 20 H 143/65 H 96 High Flow 8 09/03/23 05:00 09/03/23 07:00 09/03/23 07:00 09/03/23 07:00 09/03/23 07:00 09/03/23 07:00 09/03/23 07:00 Oxygen Flow Rate (L/min) 8 Oxygen Delivery Method High Flow Weight: 122.5 kg Body Mass Index (BMI) 38.7 Intake & Output: Intake and Output for Last 24 Hours 09/01/23 09/02/23 09/03/23 23:59 23:59 23:59 Intake Total 7359.95 / 7359.95 116 / 116 Output Total 650 / 650 175 / 175 Balance 6709.95 / 6709.95 -59 / -59 Lab / Micro Data Attestation: I reviewed the patient's lab results. 09/03/23 05:45 09/03/23 05:45 Labs: Laboratory Results - last 24 hr 09/01/23 23:52: Diff Path Review Reviewed 09/03/23 05:45: WBC 30.6 H*, RBC 3.60 L, Hgb 10.8 L, Hct 33.5 L, MCV 93.1, MCH 30.0, MCHC 32.2, RDW Std Deviation 49.9 H, RDW Coeff of Heath 14.6, Plt Count 270, MPV 12.2 H, Immature Gran % (Auto) 0.400, Neut % (Auto) 36.9 L, Lymph % (Auto) 58.0 H, [place] % (Auto) 4.5, Eos % (Auto) 0.0, Baso % (Auto) 0.2, Absolute Neuts (auto) 11.3 H, Absolute Lymphs (auto) 17.73 H, Nucleated RBC % 0, Sodium 140, Potassium 4.3, Chloride 113 H, Carbon Dioxide 23.0, Anion Gap 4 L, BUN 13, Creatinine 1.14, Estim Creat Clear Calc 85.93, Est GFR (MDRD) Af Amer 83, Est GFR (MDRD) Non-Af 69, BUN/Creatinine Ratio 11.4, Glucose 122 H, Calcium 8.2 L Micro: Microbiology 09/02/23 02:28 Mucosa - Nose SARS-CoV-2, Influenza & RSV (PCR) - Final Radiography Diagnostic Testing: Radiology Impression Chest X-Ray 09/03/23 05:45 IMPRESSION: 1. Increased mediastinal and hilar prominence and new mild patchy hazy opacities in the lung bases with nonvisualization of the left hemidiaphragm. 2. Likely due to increased mediastinal and hilar adenopathy. And presumed atelectasis versus infiltrate in the lung bases. Electronically Signed: Justina Marcus MD at 7:34 EDT , Physical Exam Const alert General Appearance: cooperative Orientation / Consciousness: confused and disoriented Eyes EOMs intact bilaterally Eyes Narrative: Significant scleral edema and injection. Patient does appear to be tracking better today. Improved perioral and periorbital swelling Neck Neck Narrative: Significant lymphadenopathy Chest inspection of chest normal Resp Effort and Inspection: actively coughing Auscultation: rhonchi lower bilaterally and diminished lung sounds; Negative for rales or wheezes Cardio regular rate, regular rhythm, S1 normal heart sound, S2 normal heart sound, no murmurs, no rub and no gallops GI normal to inspection, nondistended, normoactive bowel sounds and soft to palpation Extremity Extremity Narrative: Chronic stasis of lower extremities General Extremity: edema Skin Skin Narrative: See above Neuro CN's II-XII intact bilaterally, moves all extremities and no focal motor deficits Sensorium / Orientation: oriented to person Psych Mood & Affect: flat affect Charges/Coding Visit Charges Inpatient E&M: 88446 Subs Hosp L3
--- NOTE | 2023-09-03 09:39 | CASEMGMT ---
Addendum entered by Cornelio Gallegos 09/03/23 14:54: It appears that the pt PT eval is still pending at this time. PT was unable to see so far today d/t the pt being off of the floor. Original Note: Dr. Barnes states during rounds that if the pt does well today (with therapy, etc), the pt may be able to be downgraded to PCU status.
[2023-09-03] MEDS: Pantoprazole Sodium 40 MG in 0.9% Normal Saline (100mL MB+) 100 ML 330 MG IV ×2 (09:57→22:02)
[2023-09-03] MEDS: Furosemide 20 MG/2 ML VIAL IV (09:57)
[2023-09-03 11:07] LABS: Pathologist Review Reviewed
[2023-09-03] MEDS: Ipratropium/Albuterol Sulfate 3 ML AMPUL.NEB INHALATION ×2 (12:24→20:50)
[2023-09-03] MEDS: 0.9% Normal Saline (1000mL) 1,000 ML 15 ML IV (12:27)
--- NOTE | 2023-09-03 12:30 | EGD_PTH ---
PATIENT: ALLEY FORTE LOC: [facility] U#:[id number] AGE/SX: 63/M ROOM: [facility] RE09/02/[address]: Dr. Remy Grimaldo MD : 1960 BED: 1 DIS: 09/09/2023 SPEC #: [id number] RECD: 09/03/23 13:24 STATUS: [place] REQ #: [id number] DANIEL: 09/03/23 12:[address]: Johny Oliver DEPT: SURGICAL PATHOLOGY RECD BY: Toña Hudson ENTERED: 09/06/23 08:04 SP TYPE: EGD BIOPSY OTHR DR: MD Dr. Sedrick Romero MD Dr. Christophe Bursley, MD Dr. Derek Brown, DO Dr. David de Lorenzo, DO Dr. David Kantorowitz, MD Dr. David Kittoe, MD Dr. Gautam Baskaran, MD Dr. Yordanos Habtegebriel, MD Dr. Hemant Dand, MD Dr. Joseph Prah, MD Dr. Kimber Foust, MD Dr. Lamia Aljundi, MD Dr. Mansour Isckarus, MD Dr. Nicholas F Kotsonis, MD Dr. Pavan Irukulla, MD Dr. Robert Field, MD Dr. Ryan Jin, MD Dr. Roger Macklis, MD Dr. Saad Farooqi, MD Dr. Steve Walston, DO Dr. Vikram Anand, MD Dr. William Haden, MD Tyra Schlabach, HOSPITAL PHARMACY TECHNICIAN-C Tissues: Duodenum, NOS Procedures: Surgery Specimen Level IV Comments: @ Ordering doctor for SUIV edited from to @ supriya GALLEGOS at 09/06/23 1229 @ Submitting doctor edited from to @ supriya GALLEGOS at 09/06/237 HEADER OPERATION: EGD with biopsy PRE-OP DIAGNOSIS: Abnormal CT TISSUE SUBMITTED: Duodenum MICROSCOPIC DIAGNOSIS Duodenum, biopsy: Minimal non-specific chronic inflammation. AM/mr 09/07/2023 COMMENT Clinical correlation is suggested. MICROSCOPIC DESCRIPTION Slides are reviewed. GROSS DESCRIPTION Received in fixative is one container labeled with the patient's name and designated Duodenum. The specimen consists of multiple irregular fragments of light joaquin soft tissue that in aggregate measure 0.9 x 0.5 x 0.1 cm. The specimen is totally submitted in one cassette. Donta 09/06/23 TC:3 CPT: 30869
--- NOTE | 2023-09-03 15:12 | OP.CCLET_ITS ---
09/03/2023 Anthony Vang Re : Upper GI endoscopy procedure for Josias Christianson Ciera This procedure was performed on Sunday, September 03, 2023. My impressions and recommendations are as follows: Impressions : - LA Grade B esophagitis with no bleeding. - Grade I esophageal varices. - No gross lesions in the entire stomach. - Acute duodenitis. Biopsied. Recommendations : - Return patient to [facility] for ongoing care. - Full liquid diet. - Continue present medications. - Await pathology results. My findings are described in the full procedure note, which is enclosed. If I can be of further assistance, please feel free to contact me at . Sincerely, Johny Oliver, 09/03/2023 3:11:46 PM This report has been signed electronically.
--- NOTE | 2023-09-03 15:12 | OP.EGD_ITS ---
Patient Name: Josias Alonso Procedure Date: 09/03/2023 12:26 PM Date of : 1960 Age: 63 Procedure: Upper GI endoscopy Indications: Epigastric abdominal pain Providers: Johny Oliver DO Medicines: Monitored Anesthesia Care Patient Profile: This is a 63 year old male. Refer to note in patient chart for documentation of history and physical. Patient has symptoms of acute epigastric abdominal pain. Complications: No immediate complications. Procedure: Pre-Anesthesia Assessment: - Prior to the procedure, a History and Physical was performed, and patient medications and allergies were reviewed. The risks and benefits of the procedure and the sedation options and risks were discussed with the patient. All questions were answered and informed consent was obtained. Patient identification and proposed procedure were verified by the physician in the pre-procedure area. Mental Status Examination: alert and oriented. Airway Examination: normal oropharyngeal airway and neck mobility. Respiratory Examination: clear to auscultation. CV Examination: normal. Prophylactic Antibiotics: The patient does not require prophylactic antibiotics. Prior Anticoagulants: The patient has taken no anticoagulant or antiplatelet agents. After reviewing the risks and benefits, the patient was deemed in satisfactory condition to undergo the procedure. The anesthesia plan was to use monitored anesthesia care (MAC). Immediately prior to administration of medications, the patient was re-assessed for adequacy to receive sedatives. The heart rate, respiratory rate, oxygen saturations, blood pressure, adequacy of pulmonary ventilation, and response to care were monitored throughout the procedure. The physical status of the patient was re-assessed after the procedure. After obtaining informed consent, the endoscope was passed under direct vision. Throughout the procedure, the patient's blood pressure, pulse, and oxygen saturations were monitored continuously. The Endoscope was introduced through the mouth, and advanced to the second part of duodenum. The upper GI endoscopy was accomplished without difficulty. The patient tolerated the procedure well. Scope In: 12:47:04 PM Scope Out: 12:52:02 PM Total Procedure Duration Time 0 hours 4 minutes 58 seconds Findings: LA Grade B (one or more mucosal breaks greater than 5 mm, not extending between the tops of two mucosal folds) esophagitis with no bleeding was found 38 to 40 cm from the incisors. Grade I varices were found in the upper third of the esophagus. They were 5 mm in largest diameter. No gross lesions were noted in the entire examined stomach. Diffuse moderate inflammation characterized by erosions, erythema, friability and granularity was found in the duodenal bulb, in the first portion of the duodenum, in the second portion of the duodenum and in the third portion of the duodenum. Biopsies were taken with a cold forceps for histology. Verification of patient identification for the specimen was done. Estimated blood loss was minimal. Impression: - LA Grade B esophagitis with no bleeding. - Grade I esophageal varices. - No gross lesions in the entire stomach. - Acute duodenitis. Biopsied. Recommendation: - Return patient to [facility] for ongoing care. - Full liquid diet. - Continue present medications. - Await pathology results. Procedure Code(s): --- Professional --- 94909, Esophagogastroduodenoscopy, flexible, transoral; with biopsy, single or multiple CPT copyright 2021 [employer]. All rights reserved. The codes documented in this report are preliminary and upon medical billing coder review may be revised to meet current compliance requirements. Johny Oliver DO 09/03/2023 3:11:46 PM This report has been signed electronically. Number of Addenda: 0 Note Initiated On: 09/03/2023 12:26 PM
[2023-09-03 17:37] LABS: Vancomycin, Trough Level 19.3 ug/mL (5.0-15.0)
--- NOTE | 2023-09-03 17:53 | PHA.PHARE_ITS ---
Consult Antibiotic Management Pharmacy has been consulted to manage selected antibiotic: Vancomycin Type of Intervention Type of Consult: Follow-up Labs Labs: Sodium 140 mmol/L (136-145) 09/03/23 05:45 Potassium 4.3 mmol/L (3.5-5.1) 09/03/23 05:45 Chloride 113 mmol/L (98-107) H 09/03/23 05:45 Carbon Dioxide 23.0 mmol/L (21.0-32.0) 09/03/23 05:45 Anion Gap 4 (5-15) L 09/03/23 05:45 BUN 13 mg/dL (7-18) 09/03/23 05:45 Creatinine 1.14 mg/dL (0.70-1.30) 09/03/23 05:45 Est GFR (MDRD) Af Amer 83 mL/min (>60) 09/03/23 05:45 Est GFR (MDRD) Non-Af 69 mL/min (>60) 09/03/23 05:45 BUN/Creatinine Ratio 11.4 RATIO (10-20) 09/03/23 05:45 Glucose 122 mg/dL (74-106) H 09/03/23 05:45 Vancomycin Trough 19.3 ug/mL (5.0-15.0) H 09/03/23 17:00 Microbiology Microbiology: Microbiology 09/02/23 00:02 Urine, Clean Catch Urine Culture - Final Mixed Gram Positive Organisms 09/02/23 02:28 Mucosa - Nose SARS-CoV-2, Influenza & RSV (PCR) - Final Pharmacy Plan for Drug Dosing Pharmacy Plan for Drug Dosing: VANCOMYCIN LEVEL RECEIVED Current Vancomycin Dose: 1750MG Q12 Number of Doses Received:3 Vancomycin Level: 19.3 MG/DL Hours Since Last Dose: 11 Renal Function: SCr 1.14 mg/dL, CrCl 85 mL/min Renal Function Trend: slightly improved Lab/Micro: blood cx pending, urine cx mixed GPC Vancomycin Plan/Comments: 11 hour trough is therapeutic at 19.3 mg/dL, goal 15- 20. Will continue current dosing and get a trough in 2 days. Pending Level: 09/05/23 @ 1700 Pharmacy Service will continue to monitor and adjust dosing as required.
--- NOTE | 2023-09-03 18:05 | PCM.PN.HOSP ---
Subjective Subjective Opening his eyes and communicating today where is the day before his eyes were shut Objective Data Objective Data Vital Signs: Vital Signs Temp Pulse Resp BP Pulse Ox O2 Del Method O2 Flow Rate 100.9 F H 79 15 152/88 H 100 High Flow 6 09/03/23 13:31 09/03/23 16:00 09/03/23 16:00 09/03/23 16:00 09/03/23 16:00 09/03/23 16:00 09/03/23 16:00 Oxygen Flow Rate (L/min) 6 Oxygen Delivery Method High Flow Weight: 270 lb 1.06 oz Body Mass Index (BMI) 38.7 Intake & Output: Intake and Output for Last 24 Hours 09/02/23 09/03/23 09/04/23 03:59 03:59 03:59 Intake Total 1110 / 1110 6299.95 / 6299.95 761 / 761 Output Total 650 / 650 175 / 175 Balance 1110 / 1110 5649.95 / 5649.95 586 / 586 Lab / Micro Data 09/03/23 05:45 09/03/23 05:45 Labs: Laboratory Results - last 24 hr 09/03/23 05:45: WBC 30.6 H*, RBC 3.60 L, Hgb 10.8 L, Hct 33.5 L, MCV 93.1, MCH 30.0, MCHC 32.2, RDW Std Deviation 49.9 H, RDW Coeff of Heath 14.6, Plt Count 270, MPV 12.2 H, Immature Gran % (Auto) 0.400, Neut % (Auto) 36.9 L, Lymph % (Auto) 58.0 H, [place] % (Auto) 4.5, Eos % (Auto) 0.0, Baso % (Auto) 0.2, Absolute Neuts (auto) 11.3 H, Absolute Lymphs (auto) 17.73 H, Nucleated RBC % 0, Diff Path Review Reviewed, Sodium 140, Potassium 4.3, Chloride 113 H, Carbon Dioxide 23.0, Anion Gap 4 L, BUN 13, Creatinine 1.14, Estim Creat Clear Calc 85.93, Est GFR (MDRD) Af Amer 83, Est GFR (MDRD) Non-Af 69, BUN/Creatinine Ratio 11.4, Glucose 122 H, Calcium 8.2 L 09/03/23 17:00: Vancomycin Trough 19.3 H Micro: Microbiology 09/02/23 00:02 Urine, Clean Catch Urine Culture - Final Mixed Gram Positive Organisms 09/02/23 02:28 Mucosa - Nose SARS-CoV-2, Influenza & RSV (PCR) - Final Radiography Diagnostic Testing: Radiology Impression Chest X-Ray 09/03/23 05:45 IMPRESSION: 1. Increased mediastinal and hilar prominence and new mild patchy hazy opacities in the lung bases with nonvisualization of the left hemidiaphragm. 2. Likely due to increased mediastinal and hilar adenopathy. And presumed atelectasis versus infiltrate in the lung bases. Electronically Signed: Justina Marcus MD at 7:34 EDT , Physical Exam Narrative General: Alert, confused, Cooperative, No apparent distress HEENT: Swollen, scleral injection and edema but he is able to move his eyes today Oral: Moist Mucosa Neck: Supple, No JVD Lungs: Diminished, Normal air movement, rhonchi, No wheeze, No rales Cardiovascular: Regular rate, Regular Rhythm, Normal S1, Normal S2, No murmurs Abdomen: Soft, Non Tender, Non-Distended, No Hepato-splenomegaly Extremities: Edema, Capillary Refill Less than 3 Seconds Skin: No rashes, No breakdown Musculoskeletal: No Tenderness to Palpation of Joints or Extremities Neurological: No focal neurological deficits, exam appears to be at baseline Psych/Mental Status: Flat Assessment & Plan Assessment/Plan (1) Sepsis: QUALIFIERS: Sepsis acute organ dysfunction status: unspecified Sepsis type: sepsis due to unspecified organism Qualified Code(s): A41.9 - Sepsis, unspecified organism (2) Duodenitis: (3) UTI (urinary tract infection): QUALIFIERS: Hematuria presence: with hematuria Urinary tract infection type: acute cystitis Qualified Code(s): N30.01 - Acute cystitis with hematuria (4) Leukocytosis: QUALIFIERS: Leukocytosis type: unspecified Qualified Code(s): D72.829 - Elevated white blood cell count, unspecified (5) Nausea & vomiting: QUALIFIERS: Vomiting type: bilious vomiting Qualified Code(s): R11.14 - Bilious vomiting (6) Metabolic encephalopathy: PLAN: Plan 1. Acute metabolic encephalopathy due to acute duodenitis with severe duodenal wall thickening and acute cystitis and possible scalp cellulitis ? Status post EGD found to have esophagitis as well as esophageal varices and acute duodenitis which was biopsied ? Appreciate gastroenterology's assistance ? Continue with broad-spectrum antibiotics ? Appreciate ophthalmology for evaluating scleral injections, they do not think that he has an infection in his eyes ? 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 Essential HTN ? Hold his home lisinopril ? We will monitor make adjustments as necessary 3. Extensive lymphadenopathy ? Unlikely to be reactive to multiple infections ? There is no history that can be found that indicates multiple myeloma, we did call [facility] oncology and they have no record of him having multiple myeloma, he did have a melanoma treated ? Likely has a lymphoproliferative disorder, will continue to monitor DVT: Lovenox Charges/Coding Visit Charges Inpatient E&M: 07713 Subs Hosp L2
[2023-09-04] VITALS (29 sets, daily range): BP systolic 99–186; BP diastolic 57–98; PULSE 72–105; RESP 18–30; TEMP 36.6–37.4; O2SAT 90–100; BMI 38.9
[2023-09-04] MEDS: Vancomycin HCl 1,750 MG in 0.9% Normal Saline (500mL Bag) 500 ML 250 MG IV ×2 (05:24→17:26)
[2023-09-04] MEDS: Piperacil/Tazobactam 3.375 GM in 0.9% Normal Saline (50mL MB+) 50 ML IV ×3 (05:25→20:56)
[2023-09-04] MEDS: Ipratropium/Albuterol Sulfate 3 ML AMPUL.NEB INHALATION ×3 (07:20→19:38)
--- NOTE | 2023-09-04 08:32 | RAD_ITS ---
STUDY: X-RAY CHEST REASON FOR EXAM: Male, 63 years old. Dyspnea TECHNIQUE: Frontal view of the chest COMPARISON: 09/03/2023 FINDINGS: There are bilateral airspace and interstitial opacities which are worse when compared with the prior exam. There are stable small pleural effusions. There is no pneumothorax. The heart is stable in size. The visualized osseous structures are within normal limits. RAD/Chest 1 View (Portable) IMPRESSION: Bilateral airspace and interstitial opacities which are worse when compared with the prior exam. This may be due to infection or edema. Electronically Signed: Clifford Umana MD at 10:11 EDT ,
[2023-09-04] MEDS: Lisinopril 10 MG Tablet PO (10:24)
[2023-09-04] MEDS: Enoxaparin 40 MG/0.4 ML Syringe SC (10:24)
[2023-09-04] MEDS: Pantoprazole Sodium 40 MG in 0.9% Normal Saline (100mL MB+) 100 ML 330 MG IV ×2 (10:25→20:56)
--- NOTE | 2023-09-04 11:10 | PCM.PN.TICU ---
Objective Data Objective Data Vital Signs: Vital Signs Last response Temperature 37.4 C H 09/04/23 08:00 Temperature Source Temporal 09/04/23 08:00 Pulse Rate 97 09/04/23 09:00 Pulse Strength Normal (2+) 09/03/23 10:00 Respiratory Rate 29 H 09/04/23 09:00 Respiratory Effort Short of Breath, Labored, Accessory Muscle Use 09/04/23 08:00 Respiratory Depth Normal 09/04/23 08:00 Respiratory Pattern Tachypnea 09/04/23 08:00 Blood Pressure 155/89 H 09/04/23 09:00 Blood Pressure Mean 111 09/04/23 09:00 Blood Pressure Source Monitor 09/04/23 09:00 Blood Pressure Position Semi-Fowlers 09/04/23 09:00 Blood Pressure Location Right Arm 09/04/23 09:00 Baseline BP 139/72 09/03/23 13:31 Pulse Ox 97 09/04/23 09:00 Oxygen Delivery Method Airvo 09/04/23 09:00 Oxygen Flow Rate (L/min) 50 09/04/23 09:00 Fraction of Inspired Oxygen (FIO2) 70 09/04/23 11:02 I&O: I&O Last 24 Hours 09/03/23 09/03/23 09/04/23 11:59 23:59 11:59 Intake Total 811 / 1985 1175 / 1986 1415 / 1415 Output Total 175 / 325 150 / 325 300 / 300 Balance 636 / 1661 1025 / 1661 1115 / 1115 I&O: Total Stay 09/01/23 23:28 thru 09/04/23 10:45 Intake Total 12642.95 Output Total 1275 Balance 9485.95 Current Meds Ordered / Administered: Current meds ordered / Administered Generic Name Dose Route Start Last Admin Trade Name Freq PRN Reason Stop Dose Admin Albuterol Sulfate 2.5 mg 09/03/23 20:32 Albuterol 2.5 Mg/3 Ml Vial.Neb. INHALATION Q2H PRN PRN DYSPNEA/WHEEZING/SOB Albuterol/Ipratropium 3 ml 09/03/23 20:45 09/04/23 07:20 Ipratropium/Albuterol Sulfate 3 Ml Ampul.Neb INHALATION 3 ml Q6HWA.RT [place] Administration Enoxaparin Sodium 40 mg 09/02/23 10:00 09/04/23 10:24 Enoxaparin 40 Mg/0.4 Ml Syringe SC 40 mg DAILY [place] Administration Pantoprazole Sodium 40 mg/ 110 mls @ 330 mls/hr 09/02/23 10:00 09/04/23 10:45 Sodium Chloride IV Infused Q12 [facility] Infusion Piperacillin Sod/Tazobactam 50 mls @ 12.5 mls/hr 09/02/23 14:00 09/04/23 09:25 Sod 3.375 gm/ Sodium Chloride IV Infused Q8 [place] Infusion Vancomycin IV-PHARMACY TO DOSE 500 mls @ 250 mls/hr 09/02/23 02:22 1 each/ Sodium Chloride IV PRN PRN Rx to Dose Protocol Sodium Chloride 250 mls @ 15 mls/hr 09/02/23 05:20 09/03/23 06:03 IV 0 mls/hr .[id number] PRN Infusion Additional IVPB Infusion Sodium Chloride 250 mls @ 15 mls/hr 09/02/23 05:20 IV .[id number] PRN Saline Flush Vancomycin HCl 1,750 mg/ 535 mls @ 250 mls/hr 09/02/23 17:30 09/04/23 07:33 Sodium Chloride IV Infused Q12H [place] Infusion Sodium Chloride 1,000 mls @ 15 mls/hr 09/03/23 12:30 09/03/23 12:27 IV 15 mls/hr .Q48H [place] Administration Lisinopril 10 mg 09/03/23 10:00 09/04/23 10:24 Lisinopril 10 Mg Tablet PO 10 mg DAILY [place] Administration Morphine Sulfate 2 mg 09/02/23 02:22 09/02/23 02:37 Morphine 2 Mg/Ml Syringe IV 2 mg Q4H PRN PRN Administration Pain Score 6-10 Ondansetron HCl 4 mg 09/02/23 02:22 09/02/23 02:35 Ondansetron 4 Mg/2 Ml Vial IV 4 mg Q6H PRN PRN Administration NAUSEA/VOMITING Sodium Chloride 10 - 40 ml 09/02/23 05:20 09/03/23 13:51 0.9% Saline Lock 10 Ml Syringe IV 10 ml UD PRN Administration SALINE FLUSH Vancomycin Protocol 1 lab 09/05/23 15:00 Vancomycin Trough/Random Due [facility] 09/05/23 19:00 DAILY [facility] Lab / Micro Data 09/03/23 05:45 09/03/23 05:45 Labs: Laboratory Results - last 24 hr 09/03/23 17:00: Vancomycin Trough 19.3 H Micro: Microbiology 09/02/23 00:02 Urine, Clean Catch Urine Culture - Final Mixed Gram Positive Organisms Imaging Radiology Impression Chest X-Ray 09/04/23 08:32 IMPRESSION: Bilateral airspace and interstitial opacities which are worse when compared with the prior exam. This may be due to infection or edema. Electronically Signed: Clifford Umana MD at 10:11 EDT , Assessment and Plan . Assessment and plan: Patient seen and examined Chart and data reviewed Increased WOB and O2 requirement today Now breathing O2 via HHFNC I/O markedly (+) pCXR reviewed - looks like edema EXAM GEN modest distress VS as above HEENT HHFNC NECK obese COR RRR CHEST crackles ABD soft EXT modest edema SKIN w/d JULIEN NF ASSESSMENT 1. Acute respiratory failure requiring high-flow supplemental O2 2. Pulmonary edema 3. Leukocytosis / presumed sepsis syndrome 4. Obesity 5. DM 6. Cognitive delay TREATMENT PLAN -supplemental O2 -loop diuretics -receiving empiric ABX -chem in am -sq insulin -VTE ppx Critical Care Time: 50 min The entirety of this encounter was done via Telemedicine
[2023-09-04] MEDS: Furosemide 100 MG/10 ML Vial 60 MG IV ×2 (13:25→18:43)
--- NOTE | 2023-09-04 16:18 | PCM.PN.HOSP ---
Subjective Subjective Able to open his eyes today better a little bit more interactive Objective Data Objective Data Vital Signs: Vital Signs Temp Pulse Resp BP Pulse Ox O2 Del Method O2 Flow Rate 99.2 F H 86 24 H 141/75 H 96 Airvo 40 09/04/23 12:00 09/04/23 15:00 09/04/23 15:00 09/04/23 15:00 09/04/23 15:45 09/04/23 15:00 09/04/23 15:45 FiO2 50 09/04/23 15:53 Oxygen Flow Rate (L/min) 40 Oxygen Delivery Method Airvo Weight: 272 lb 4.334 oz Body Mass Index (BMI) 38.9 Intake & Output: Intake and Output for Last 24 Hours 09/03/23 09/04/23 09/05/23 03:59 03:59 03:59 Intake Total 6299.95 / 6299.95 1985 / 1985 1365 / 1365 Output Total 650 / 650 325 / 325 1400 / 1400 Balance 5649.95 / 5649.95 1661 / 1661 -35 / -35 Lab / Micro Data 09/03/23 05:45 09/03/23 05:45 Labs: Laboratory Results - last 24 hr 09/03/23 17:00: Vancomycin Trough 19.3 H Micro: Microbiology 09/02/23 02:45 Blood Culture (Wb) - Anticubital Left Blood Culture - Preliminary No growth in 48 hours. 09/02/23 02:05 Blood Culture (Wb) - Anticubital Left Blood Culture - Preliminary No growth in 48 hours. 09/02/23 00:02 Urine, Clean Catch Urine Culture - Final Mixed Gram Positive Organisms 09/02/23 02:28 Mucosa - Nose SARS-CoV-2, Influenza & RSV (PCR) - Final Radiography Diagnostic Testing: Radiology Impression Chest X-Ray 09/04/23 08:32 IMPRESSION: Bilateral airspace and interstitial opacities which are worse when compared with the prior exam. This may be due to infection or edema. Electronically Signed: Clifford Umana MD at 10:11 EDT , Physical Exam Narrative General: Alert, confused, Cooperative, No apparent distress HEENT: Swollen, scleral injection and edema Oral: Moist Mucosa Neck: Supple, No JVD Lungs: Diminished, Normal air movement, rhonchi, No wheeze, No rales Cardiovascular: Regular rate, Regular Rhythm, Normal S1, Normal S2, No murmurs Abdomen: Soft, Non Tender, Non-Distended, No Hepato-splenomegaly Extremities: Edema, Capillary Refill Less than 3 Seconds Skin: No rashes, No breakdown Musculoskeletal: No Tenderness to Palpation of Joints or Extremities Neurological: No focal neurological deficits, exam appears to be at baseline Psych/Mental Status: Flat Assessment & Plan Assessment/Plan (1) Sepsis: QUALIFIERS: Sepsis type: sepsis due to unspecified organism Sepsis acute organ dysfunction status: unspecified Qualified Code(s): A41.9 - Sepsis, unspecified organism (2) Duodenitis: (3) UTI (urinary tract infection): QUALIFIERS: Urinary tract infection type: acute cystitis Hematuria presence: with hematuria Qualified Code(s): N30.01 - Acute cystitis with hematuria (4) Leukocytosis: QUALIFIERS: Leukocytosis type: unspecified Qualified Code(s): D72.829 - Elevated white blood cell count, unspecified (5) Nausea & vomiting: QUALIFIERS: Vomiting type: bilious vomiting Qualified Code(s): R11.14 - Bilious vomiting (6) Metabolic encephalopathy: PLAN: Plan 1. Acute metabolic encephalopathy due to acute duodenitis with severe duodenal wall thickening and acute cystitis and possible scalp cellulitis ? Status post EGD found to have esophagitis as well as esophageal varices and acute duodenitis which was biopsied ? Appreciate gastroenterology's assistance ? Continue with broad-spectrum antibiotics ? Appreciate ophthalmology for evaluating scleral injections, they do not think that he has an infection in his eyes ? 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 Essential HTN ? Hold his home lisinopril ? We will monitor make adjustments as necessary ? Will trial him on Lasix today for the rhonchi 3. Extensive lymphadenopathy ? Unlikely to be reactive to multiple infections ? There is no history that can be found that indicates multiple myeloma, we did call [facility] oncology and they have no record of him having multiple myeloma, he did have a melanoma treated ? Likely has a lymphoproliferative disorder, will continue to monitor DVT: Marnox Charges/Coding Visit Charges Inpatient E&M: [id number] Subs Hosp L2
[2023-09-04] MEDS: 0.9% Saline Lock 10 ML Syringe IV (20:56)
[2023-09-05] VITALS (23 sets, daily range): BP systolic 97–153; BP diastolic 56–77; PULSE 66–83; RESP 16–27; TEMP 36.8–37.2; O2SAT 94–98
[2023-09-05 00:02] LABS: Bedside Glucose 109 mg/dL (74-106)
[2023-09-05] MEDS: Furosemide 100 MG/10 ML Vial 60 MG IV ×3 (01:21→18:56)
[2023-09-05] MEDS: Vancomycin HCl 1,750 MG in 0.9% Normal Saline (500mL Bag) 500 ML 250 MG IV (05:34)
[2023-09-05 05:43] LABS: Absolute Lymphocyte Count 16.26 X10^3/uL (0.83-4.51); Absolute Neutrophil Count 8.3 X10^3/uL (2.0-7.7); Basophil# 0.06 X10^3/uL; Basophil% 0.2 % (0-1); Eosinophil# 0.05 X10^3/uL; Eosinophils% 0.2 % (0-5); Hematocrit 32.3 % (40-54); Hemoglobin 10.7 g/dL (13.0-16.5); Lymphocyte # 16.26 X10^3/ul (0.83-4.51); Lymphocyte % 61.7 % (19-41); Mean Corp Hgb Conc 33.1 g/dL (32-36); Mean Corpuscular Hgb 30.3 pg (27.0-32.0); Mean Corpuscular Volume 91.5 fL (80-94); Monocyte# 1.63 X10^3/uL; Monocyte% 6.2 % (0-10); NRBC Flagged by Analyzer 0 % (0-5); Neutrophil # 8.28 X10^3/uL (2.7-7.7); Neutrophil % 31.4 % (47-70); POSITIVE DIFFERENTIAL YES; Platelet Count 208 K/mm3 (150-450); RBC Distribution Width CV 14.5 % (11.6-14.6); RBC Distribution Width SD 48.7 fl (35.1-43.9); Red Blood Count 3.53 M/mm3 (4.6-6.2); White Blood Count 26.4 K/mm3 (4.4-11.0)
[2023-09-05 06:32] LABS: Differential Indicated SCAN CRITERIA MET
[2023-09-05 06:37] LABS: ALB/GLOB Ratio 0.7 RATIO (0.9-2.4); AST(SGOT) 19 U/L (15-37); Alanine Aminotransfer ALT/SGPT 16 U/L (16-61); Albumin, Serum 2.4 g/dL (3.2-5.0); Alkaline Phosphatase 47 U/L (45-117); Anion Gap 4 (5-15); BUN 18 mg/dL (7-18); BUN/Creat Ratio 11.3 RATIO (10-20); Calcium,Total 7.9 mg/dL (8.5-10.1); Chloride 104 mmol/L (98-107); Creatinine, Serum 1.59 mg/dL (0.70-1.30); EST Glomerular Filtration Rate 47 mL/min (>60); Est Glom Filt Rate - Afr Amer 57 mL/min (>60); Estimated Creatinine Clearance 61.87 ml/min; Globulin 3.4 g/dL (2.2-4.2); Glucose 129 mg/dL (74-106); Magnesium 1.8 mg/dL (1.6-2.6); Potassium 3.5 mmol/L (3.5-5.1); Protein, Total 5.8 g/dL (6.4-8.2); Sodium Level 135 mmol/L (136-145)
[2023-09-05] MEDS: Piperacil/Tazobactam 3.375 GM in 0.9% Normal Saline (50mL MB+) 50 ML IV ×3 (06:44→20:52)
[2023-09-05] MEDS: Ipratropium/Albuterol Sulfate 3 ML AMPUL.NEB INHALATION ×3 (07:44→20:20)
--- NOTE | 2023-09-05 07:50 | CPS ---
Weaned HHF to 40L/40% HR-71, SPO2-96%, RR-18- will continue to monitor. Nursing notified.
[2023-09-05 08:50] LABS: Platelet Estimate ADEQUATE (ADEQ); Red Cell Morphology NORM C+C NORMAL (NORM C&C)
--- NOTE | 2023-09-05 09:10 | PN.HOSP_ITS ---
Subjective Subjective Doing well overnight, white count is improving Objective Data Objective Data Vital Signs: Vital Signs Temp Pulse Resp BP Pulse Ox O2 Del Method O2 Flow Rate 98.9 F 71 17 104/60 97 Room Air 40 09/05/23 05:00 09/05/23 07:44 09/05/23 07:44 09/05/23 07:00 09/05/23 07:44 09/05/23 07:00 09/05/23 07:00 FiO2 40 09/05/23 07:44 Oxygen Flow Rate (L/min) 40 Oxygen Delivery Method Room Air Weight: 272 lb 4.334 oz Body Mass Index (BMI) 38.9 Intake & Output: Intake and Output for Last 24 Hours 09/04/23 09/05/23 09/06/23 03:59 03:59 03:59 Intake Total 1985 / 1985 3110 / 3110 850 / 850 Output Total 325 / 325 4150 / 4150 1150 / 1150 Balance 1661 / 1661 -1040 / -1040 -300 / -300 Lab / Micro Data 09/05/23 05:25 09/05/23 05:25 Labs: Laboratory Results - last 24 hr 09/04/23 23:43: POC Glucose 109 H 09/05/23 05:25: WBC 26.4 H, RBC 3.53 L, Hgb 10.7 L, Hct 32.3 L, MCV 91.5, MCH 30.3, MCHC 33.1, RDW Std Deviation 48.7 H, RDW Coeff of Heath 14.5, Plt Count 208, MPV 12.0, Immature Gran % (Auto) 0.300, Neut % (Auto) 31.4 L, Lymph % (Auto) 61.7 H, [place] % (Auto) 6.2, Eos % (Auto) 0.2, Baso % (Auto) 0.2, Absolute Neuts (auto) 8.3 H, Absolute Lymphs (auto) 16.26 H, Nucleated RBC % 0, Platelet Estimate ADEQUATE, RBC Morphology NORM C+C, Sodium 135 L, Potassium 3.5, Chloride 104, Carbon Dioxide 27.0, Anion Gap 4 L, BUN 18, Creatinine 1.59 H, Estim Creat Clear Calc 61.87, Est GFR (MDRD) Af Amer 57 L, Est GFR (MDRD) Non-Af 47 L, BUN/Creatinine Ratio 11.3, Glucose 129 H, Calcium 7.9 L, Magnesium 1.8, Total Bilirubin 1.10 H, AST 19, ALT 16, Alkaline Phosphatase 47, Total Protein 5.8 L, Albumin 2.4 L, Globulin 3.4, Albumin/Globulin Ratio 0.7 L Micro: Microbiology 09/02/23 02:45 Blood Culture (Wb) - Anticubital Left Blood Culture - Preliminary No growth in 48 hours. 09/02/23 02:05 Blood Culture (Wb) - Anticubital Left Blood Culture - Preliminary No growth in 48 hours. 09/02/23 00:02 Urine, Clean Catch Urine Culture - Final Mixed Gram Positive Organisms 09/02/23 02:28 Mucosa - Nose SARS-CoV-2, Influenza & RSV (PCR) - Final Radiography Diagnostic Testing: Radiology Impression Chest X-Ray 09/04/23 08:32 IMPRESSION: Bilateral airspace and interstitial opacities which are worse when compared with the prior exam. This may be due to infection or edema. Electronically Signed: Clifford Umana MD at 10:11 EDT , Physical Exam Narrative General: Alert, confused, Cooperative, No apparent distress HEENT: Swollen, scleral injection and edema Oral: Moist Mucosa Neck: Supple, No JVD Lungs: Diminished, Normal air movement, improved rhonchi, No wheeze, No rales Cardiovascular: Regular rate, Regular Rhythm, Normal S1, Normal S2, No murmurs Abdomen: Soft, Non Tender, Non-Distended, No Hepato-splenomegaly Extremities: Edema, Capillary Refill Less than 3 Seconds Skin: No rashes, No breakdown Musculoskeletal: No Tenderness to Palpation of Joints or Extremities Neurological: No focal neurological deficits, exam appears to be at baseline Psych/Mental Status: Flat Assessment & Plan Assessment/Plan (1) Sepsis: QUALIFIERS: Sepsis type: sepsis due to unspecified organism Sepsis acute organ dysfunction status: unspecified Qualified Code(s): A41.9 - Sepsis, unspecified organism (2) Duodenitis: (3) UTI (urinary tract infection): QUALIFIERS: Urinary tract infection type: acute cystitis Hematuria presence: with hematuria Qualified Code(s): N30.01 - Acute cystitis with hematuria (4) Leukocytosis: QUALIFIERS: Leukocytosis type: unspecified Qualified Code(s): D72.829 - Elevated white blood cell count, unspecified (5) Nausea & vomiting: QUALIFIERS: Vomiting type: bilious vomiting Qualified Code(s): R11.14 - Bilious vomiting (6) Metabolic encephalopathy: PLAN: Plan 1. Acute metabolic encephalopathy due to acute duodenitis with severe duodenal wall thickening and acute cystitis and possible scalp cellulitis ? Status post EGD found to have esophagitis as well as esophageal varices and acute duodenitis which was biopsied ? Appreciate gastroenterology's assistance ? Continue with broad-spectrum antibiotics ? Appreciate ophthalmology for evaluating scleral injections, they do not think that he has an infection in his eyes ? Urine cultures with mixed positive organisms and blood cultures are negative, his legs are MRSA positive, he does have a history of lower extremity cellulitis ? He did receive a dose of Lasix yesterday to help with his rhonchi and swelling however his renal function is 1.59, will hold 2. Essential HTN ? Hold his home lisinopril ? We will monitor make adjustments as necessary ? Will trial him on Lasix today for the rhonchi 3. Extensive lymphadenopathy ? Unlikely to be reactive to multiple infections ? There is no history that can be found that indicates multiple myeloma, we did call [facility] oncology and they have no record of him having multiple myeloma, he did have a melanoma treated ? Likely has a lymphoproliferative disorder, will continue to monitor and recommend outpatient follow-up with oncology DVT: Jemma Charges/Coding Visit Charges Inpatient E&M: [id number] Subs Hosp L2
--- NOTE | 2023-09-05 10:14 | CPS ---
Patient taken off HHF and placed on 5L high flow nasal cannula
[2023-09-05] MEDS: Lisinopril 10 MG Tablet PO (10:21)
[2023-09-05] MEDS: Enoxaparin 40 MG/0.4 ML Syringe SC (10:21)
[2023-09-05] MEDS: Pantoprazole Sodium 40 MG Tablet PO ×2 (10:21→20:52)
--- NOTE | 2023-09-05 11:43 | PCM.PN.TICU ---
Objective Data Objective Data Vital Signs: Vital Signs Last response Temperature 37.1 C 09/05/23 08:00 Temperature Source Temporal 09/05/23 08:00 Pulse Rate 72 09/05/23 09:32 Pulse Strength Normal (2+) 09/04/23 22:00 Respiratory Rate 18 09/05/23 09:32 Respiratory Effort Short of Breath, Labored, Accessory Muscle Use 09/05/23 08:00 Respiratory Depth Normal 09/05/23 08:00 Respiratory Pattern Normal 09/05/23 09:32 Blood Pressure 122/71 H 09/05/23 09:00 Blood Pressure Mean 88 09/05/23 09:00 Blood Pressure Source Monitor 09/05/23 09:00 Blood Pressure Position Semi-Fowlers 09/05/23 09:00 Blood Pressure Location Right Arm 09/05/23 09:00 Baseline BP 139/72 09/03/23 13:31 Pulse Ox 97 09/05/23 09:32 Oxygen Delivery Method Airvo 09/05/23 09:00 Oxygen Flow Rate (L/min) 40 09/05/23 09:00 Fraction of Inspired Oxygen (FIO2) 48 09/05/23 09:00 I&O: I&O Last 24 Hours 09/04/23 09/04/23 09/05/23 11:59 23:59 11:59 Intake Total 1415 / 3110 695 / 3110 2435 / 2435 Output Total 300 / 4150 2600 / 4150 3400 / 3400 Balance 1115 / -1040 -1905 / -1040 -965 / -965 I&O: Total Stay 09/01/23 23:28 thru 09/05/23 08:00 Intake Total 68288.95 Output Total 7275 Balance 6615.95 Current Meds Ordered / Administered: Current meds ordered / Administered Generic Name Dose Route Start Last Admin Trade Name Freq PRN Reason Stop Dose Admin Albuterol Sulfate 2.5 mg 09/03/23 20:32 Albuterol 2.5 Mg/3 Ml Vial.Neb. INHALATION Q2H PRN PRN DYSPNEA/WHEEZING/SOB Albuterol/Ipratropium 3 ml 09/03/23 20:45 09/05/23 07:44 Ipratropium/Albuterol Sulfate 3 Ml Ampul.Neb INHALATION 3 ml Q6HWA.RT [place] Administration Enoxaparin Sodium 40 mg 09/02/23 10:00 09/05/23 10:21 Enoxaparin 40 Mg/0.4 Ml Syringe SC 40 mg DAILY [facility] Administration Piperacillin Sod/Tazobactam 50 mls @ 12.5 mls/hr 09/02/23 14:00 09/05/23 06:44 Sod 3.375 gm/ Sodium Chloride IV 12.5 mls/hr Q8 [place] Administration Vancomycin IV-PHARMACY TO DOSE 500 mls @ 250 mls/hr 09/02/23 02:22 1 each/ Sodium Chloride IV PRN PRN Rx to Dose Protocol Sodium Chloride 250 mls @ 15 mls/hr 09/02/23 05:20 09/03/23 06:03 IV 0 mls/hr .[id number] PRN Infusion Additional IVPB Infusion Sodium Chloride 250 mls @ 15 mls/hr 09/02/23 05:20 IV .[id number] PRN Saline Flush Vancomycin HCl 1,750 mg/ 535 mls @ 250 mls/hr 09/02/23 17:30 09/05/23 07:43 Sodium Chloride IV Infused Q12H [facility] Infusion Sodium Chloride 1,000 mls @ 15 mls/hr 09/03/23 12:30 09/03/23 12:27 IV 15 mls/hr .Q48H [place] Administration Lisinopril 10 mg 09/03/23 10:00 09/05/23 10:21 Lisinopril 10 Mg Tablet PO 10 mg DAILY [facility] Administration Morphine Sulfate 2 mg 09/02/23 02:22 09/02/23 02:37 Morphine 2 Mg/Ml Syringe IV 2 mg Q4H PRN PRN Administration Pain Score 6-10 Ondansetron HCl 4 mg 09/02/23 02:22 09/02/23 02:35 Ondansetron 4 Mg/2 Ml Vial IV 4 mg Q6H PRN PRN Administration NAUSEA/VOMITING Pantoprazole Sodium 40 mg 09/05/23 10:00 09/05/23 10:21 Pantoprazole Sodium 40 Mg Tablet PO 40 mg BID [facility] Administration Sodium Chloride 10 - 40 ml 09/02/23 05:20 09/04/23 20:56 0.9% Saline Lock 10 Ml Syringe IV 30 ml UD PRN Administration SALINE FLUSH Vancomycin Protocol 1 lab 09/05/23 15:00 Vancomycin Trough/Random Due 09/05/23 19:00 DAILY [facility] Lab / Micro Data 09/05/23 05:25 09/05/23 05:25 Labs: Laboratory Results - last 24 hr 09/04/23 23:43: POC Glucose 109 H 09/05/23 05:25: WBC 26.4 H, RBC 3.53 L, Hgb 10.7 L, Hct 32.3 L, MCV 91.5, MCH 30.3, MCHC 33.1, RDW Std Deviation 48.7 H, RDW Coeff of Heath 14.5, Plt Count 208, MPV 12.0, Immature Gran % (Auto) 0.300, Neut % (Auto) 31.4 L, Lymph % (Auto) 61.7 H, [place] % (Auto) 6.2, Eos % (Auto) 0.2, Baso % (Auto) 0.2, Absolute Neuts (auto) 8.3 H, Absolute Lymphs (auto) 16.26 H, Nucleated RBC % 0, Platelet Estimate ADEQUATE, RBC Morphology NORM C+C, Sodium 135 L, Potassium 3.5, Chloride 104, Carbon Dioxide 27.0, Anion Gap 4 L, BUN 18, Creatinine 1.59 H, Estim Creat Clear Calc 61.87, Est GFR (MDRD) Af Amer 57 L, Est GFR (MDRD) Non-Af 47 L, BUN/Creatinine Ratio 11.3, Glucose 129 H, Calcium 7.9 L, Magnesium 1.8, Total Bilirubin 1.10 H, AST 19, ALT 16, Alkaline Phosphatase 47, Total Protein 5.8 L, Albumin 2.4 L, Globulin 3.4, Albumin/Globulin Ratio 0.7 L Micro: Microbiology 09/02/23 02:45 Blood Culture (Wb) - Anticubital Left Blood Culture - Preliminary No growth in 48 hours. 09/02/23 02:05 Blood Culture (Wb) - Anticubital Left Blood Culture - Preliminary No growth in 48 hours. Assessment and Plan . Assessment and plan: Objective Data Objective Data Vital Signs: Vital Signs Last response Temperature 37.4 C H 09/04/23 08:00 Temperature Source Temporal 09/04/23 08:00 Pulse Rate 97 09/04/23 09:00 Pulse Strength Normal (2+) 09/03/23 10:00 Respiratory Rate 29 H 09/04/23 09:00 Respiratory Effort Short of Breath, Labored, Accessory Muscle Use 09/04/23 08:00 Respiratory Depth Normal 09/04/23 08:00 Respiratory Pattern Tachypnea 09/04/23 08:00 Blood Pressure 155/89 H 09/04/23 09:00 Blood Pressure Mean 111 09/04/23 09:00 Blood Pressure Source Monitor 09/04/23 09:00 Blood Pressure Position Semi-Fowlers 09/04/23 09:00 Blood Pressure Location Right Arm 09/04/23 09:00 Baseline BP 139/72 09/03/23 13:31 Pulse Ox 97 09/04/23 09:00 Oxygen Delivery Method Airvo 09/04/23 09:00 Oxygen Flow Rate (L/min) 50 09/04/23 09:00 Fraction of Inspired Oxygen (FIO2) 70 09/04/23 11:02 I&O: I&O Last 24 Hours 09/03/23 09/03/23 09/04/23 11:59 23:59 11:59 Intake Total 81 / 1985 1175 / 1985 1415 / 1415 Output Total 175 / 325 150 / 325 300 / 300 Balance 636 / 1661 1025 / 1661 1115 / 1115 I&O: Total Stay 09/01/23 23:28 thru 09/04/23 10:45 Intake Total 66976.95 Output Total 1275 Balance 9485.95 Current Meds Ordered / Administered: Current meds ordered / Administered Generic Name Dose Route Start Last Admin Trade Name Freq PRN Reason Stop Dose Admin Albuterol Sulfate 2.5 mg 09/03/23 20:32 Albuterol 2.5 Mg/3 Ml Vial.Neb. INHALATION Q2H PRN PRN DYSPNEA/WHEEZING/SOB Albuterol/Ipratropium 3 ml 09/03/23 20:45 09/04/23 07:20 Ipratropium/Albuterol Sulfate 3 Ml Ampul.Neb INHALATION 3 ml Q6HWA.RT [place] Administration Enoxaparin Sodium 40 mg 09/02/23 10:00 09/04/23 10:24 Enoxaparin 40 Mg/0.4 Ml Syringe SC 40 mg DAILY [facility] Administration Pantoprazole Sodium 40 mg/ 110 mls @ 330 mls/hr 09/02/23 10:00 09/04/23 10:45 Sodium Chloride IV Infused Q12 [facility] Infusion Piperacillin Sod/Tazobactam 50 mls @ 12.5 mls/hr 09/02/23 14:00 09/04/23 09:25 Sod 3.375 gm/ Sodium Chloride IV Infused Q8 [facility] Infusion Vancomycin IV-PHARMACY TO DOSE 500 mls @ 250 mls/hr 09/02/23 02:22 1 each/ Sodium Chloride IV PRN PRN Rx to Dose Protocol Sodium Chloride 250 mls @ 15 mls/hr 09/02/23 05:20 09/03/23 06:03 IV 0 mls/hr .[id number] PRN Infusion Additional IVPB Infusion Sodium Chloride 250 mls @ 15 mls/hr 09/02/23 05:20 IV .[id number] PRN Saline Flush Vancomycin HCl 1,750 mg/ 535 mls @ 250 mls/hr 09/02/23 17:30 09/04/23 07:33 Sodium Chloride IV Infused Q12H [facility] Infusion Sodium Chloride 1,000 mls @ 15 mls/hr 09/03/23 12:30 09/03/23 12:27 IV 15 mls/hr .Q48H [place] Administration Lisinopril 10 mg 09/03/23 10:00 09/04/23 10:24 Lisinopril 10 Mg Tablet PO 10 mg DAILY [facility] Administration Morphine Sulfate 2 mg 09/02/23 02:22 09/02/23 02:37 Morphine 2 Mg/Ml Syringe IV 2 mg Q4H PRN PRN Administration Pain Score 6-10 Ondansetron HCl 4 mg 09/02/23 02:22 09/02/23 02:35 Ondansetron 4 Mg/2 Ml Vial IV 4 mg Q6H PRN PRN Administration NAUSEA/VOMITING Sodium Chloride 10 - 40 ml 09/02/23 05:20 09/03/23 13:51 0.9% Saline Lock 10 Ml Syringe IV 10 ml UD PRN Administration SALINE FLUSH Vancomycin Protocol 1 lab 09/05/23 15:00 Vancomycin Trough/Random Due MC 09/05/23 19:00 DAILY [facility] Lab / Micro Data 09/03/23 05:45 09/03/23 05:45 Labs: Laboratory Results - last 24 hr 09/03/23 17:00: Vancomycin Trough 19.3 H Micro: Microbiology 09/02/23 00:02 Urine, Clean Catch Urine Culture - Final Mixed Gram Positive Organisms Imaging Radiology Impression Chest X-Ray 09/04/23 08:32 IMPRESSION: Bilateral airspace and interstitial opacities which are worse when compared with the prior exam. This may be due to infection or edema. Electronically Signed: Clifford Umana MD at 10:11 EDT , Patient seen and examined Chart and data reviewed He is resting comfortably Breathing O2 4 LPM at rest Brisk UOP w/ furosemide Lab reviewed Continue diuresis today Plans to downgrade noted EXAM GEN NAD VS as above HEENT O2 N/C NECK obese COR RRR CHEST CTA ABD soft EXT modest edema SKIN w/d JULIEN NF ASSESSMENT 1. Acute respiratory failure requiring high-flow supplemental O2 2. Pulmonary edema 3. Leukocytosis / presumed sepsis syndrome 4. Obesity 5. DM 6. Cognitive delay TREATMENT PLAN -supplemental O2 as needed -loop diuretics -receiving empiric ABX -sq insulin -VTE ppx -working on disposition Critical Care Time: 50 min The entirety of this encounter was done via Telemedicine
[2023-09-05] MEDS: Potassium Chloride Oral Soln 20 MEQ/15 ML UDC 40 MEQ PO (13:56)
[2023-09-05] MEDS: Magnesium Sulfate 2 GM in Dextrose 5%-Water (100mL Bag) 100 ML IV (14:47)
[2023-09-05 17:46] LABS: Vancomycin, Trough Level 28.6 ug/mL (5.0-15.0)
--- NOTE | 2023-09-05 18:19 | PCM.RX.CS ---
Consult Antibiotic Management Pharmacy has been consulted to manage selected antibiotic: Vancomycin Type of Intervention Type of Consult: Follow-up Suspected Infection Suspected Infection: Sepsis Labs Labs: Sodium 135 mmol/L (136-145) L 09/05/23 05:25 Potassium 3.5 mmol/L (3.5-5.1) 09/05/23 05:25 Chloride 104 mmol/L (98-107) 09/05/23 05:25 Carbon Dioxide 27.0 mmol/L (21.0-32.0) 09/05/23 05:25 Anion Gap 4 (5-15) L 09/05/23 05:25 BUN 18 mg/dL (7-18) 09/05/23 05:25 Creatinine 1.59 mg/dL (0.70-1.30) H 09/05/23 05:25 Est GFR (MDRD) Af Amer 57 mL/min (>60) L 09/05/23 05:25 Est GFR (MDRD) Non-Af 47 mL/min (>60) L 09/05/23 05:25 BUN/Creatinine Ratio 11.3 RATIO (10-20) 09/05/23 05:25 Glucose 129 mg/dL (74-106) H 09/05/23 05:25 Vancomycin Trough 28.6 ug/mL (5.0-15.0) H 09/05/23 16:54 Microbiology Microbiology: Microbiology 09/02/23 02:45 Blood Culture (Wb) - Anticubital Left Blood Culture - Preliminary No growth in 48 hours. 09/02/23 02:05 Blood Culture (Wb) - Anticubital Left Blood Culture - Preliminary No growth in 48 hours. 09/02/23 00:02 Urine, Clean Catch Urine Culture - Final Mixed Gram Positive Organisms 09/02/23 02:28 Mucosa - Nose SARS-CoV-2, Influenza & RSV (PCR) - Final Dosing Weight Weight used for dosin.5 kg Estimated Creatinine Clearance Estimated Creatinine Clearance: 62 Goal Trough Goal Trough: 15-20 mcg/mL Pharmacy Plan for Drug Dosing Pharmacy Plan for Drug Dosing: Vancomycin trough level of 28.6, drawn 11.5hrs post-dose, was high. Will hold current dosing and will draw a random level in 12 hours to determine further dosing. Pharmacy Service will continue to monitor and adjust dosing as required. Follow-Up Labs Follow-Up Labs: Trough: Vancomycin (random) Date/Time Labs Ordered Labs to be done on [date and time ordered]: 09/06/23 @0500
[2023-09-05] MEDS: 0.9% Saline Lock 10 ML Syringe IV (20:55)
[2023-09-06] VITALS (8 sets, daily range): BP systolic 119–150; BP diastolic 64–86; PULSE 69–82; RESP 18–20; TEMP 36.6–37.1; O2SAT 94–98
[2023-09-06] MEDS: 0.9% Saline Lock 10 ML Syringe IV (05:37)
[2023-09-06] MEDS: Piperacil/Tazobactam 3.375 GM in 0.9% Normal Saline (50mL MB+) 50 ML IV ×3 (05:37→22:24)
[2023-09-06 05:42] LABS: Absolute Lymphocyte Count 18.49 X10^3/uL (0.83-4.51); Absolute Neutrophil Count 9.5 X10^3/uL (2.0-7.7); Basophil# 0.07 X10^3/uL; Basophil% 0.2 % (0-1); Eosinophil# 0.25 X10^3/uL; Eosinophils% 0.8 % (0-5); Hematocrit 33.3 % (40-54); Hemoglobin 11.2 g/dL (13.0-16.5); Lymphocyte # 18.49 X10^3/ul (0.83-4.51); Lymphocyte % 61.3 % (19-41); Mean Corp Hgb Conc 33.6 g/dL (32-36); Mean Corpuscular Hgb 30.3 pg (27.0-32.0); Mean Platelet Vol. 11.9 fl (6.2-12.0); Monocyte# 1.67 X10^3/uL; Monocyte% 5.5 % (0-10); NRBC Flagged by Analyzer 0 % (0-5); Neutrophil # 9.52 X10^3/uL (2.7-7.7); Neutrophil % 31.7 % (47-70); POSITIVE COUNT YES; POSITIVE DIFFERENTIAL YES; Platelet Count 223 K/mm3 (150-450); RBC Distribution Width CV 14.4 % (11.6-14.6); RBC Distribution Width SD 47.2 fl (35.1-43.9)
[2023-09-06 06:16] LABS: Anion Gap 6 (5-15); BUN 20 mg/dL (7-18); BUN/Creat Ratio 11.2 RATIO (10-20); Calcium,Total 7.9 mg/dL (8.5-10.1); Chloride 100 mmol/L (98-107); Creatinine, Serum 1.79 mg/dL (0.70-1.30); EST Glomerular Filtration Rate 41 mL/min (>60); Est Glom Filt Rate - Afr Amer 49 mL/min (>60); Estimated Creatinine Clearance 54.96 ml/min; Glucose 122 mg/dL (74-106); Potassium 3.7 mmol/L (3.5-5.1); Sodium Level 135 mmol/L (136-145)
--- NOTE | 2023-09-06 06:23 | PCM.RX.CS ---
Consult Antibiotic Management Pharmacy has been consulted to manage selected antibiotic: Vancomycin Type of Intervention Type of Consult: Follow-up Suspected Infection Suspected Infection: Sepsis Labs Labs: Sodium 135 mmol/L (136-145) L 09/06/23 05:30 Potassium 3.7 mmol/L (3.5-5.1) 09/06/23 05:30 Chloride 100 mmol/L (98-107) 09/06/23 05:30 Carbon Dioxide 29.0 mmol/L (21.0-32.0) 09/06/23 05:30 Anion Gap 6 (5-15) 09/06/23 05:30 BUN 20 mg/dL (7-18) H 09/06/23 05:30 Creatinine 1.79 mg/dL (0.70-1.30) H 09/06/23 05:30 Est GFR (MDRD) Af Amer 49 mL/min (>60) L 09/06/23 05:30 Est GFR (MDRD) Non-Af 41 mL/min (>60) L 09/06/23 05:30 BUN/Creatinine Ratio 11.2 RATIO (10-20) 09/06/23 05:30 Glucose 122 mg/dL (74-106) H 09/06/23 05:30 Vancomycin Trough 28.6 ug/mL (5.0-15.0) H 09/05/23 16:54 Random Vancomycin 23.0 ug/mL (0.0-15.0) H 09/06/23 05:30 Microbiology Microbiology: Microbiology 09/02/23 02:45 Blood Culture (Wb) - Anticubital Left Blood Culture - Preliminary No growth in 48 hours. 09/02/23 02:05 Blood Culture (Wb) - Anticubital Left Blood Culture - Preliminary No growth in 48 hours. 09/02/23 00:02 Urine, Clean Catch Urine Culture - Final Mixed Gram Positive Organisms 09/02/23 02:28 Mucosa - Nose SARS-CoV-2, Influenza & RSV (PCR) - Final Dosing Weight Weight used for dosin.5 kg Estimated Creatinine Clearance Estimated Creatinine Clearance: 55 Goal Trough Goal Trough: 15-20 mcg/mL Pharmacy Plan for Drug Dosing Pharmacy Plan for Drug Dosing: Random vancomycin level was still high at 23.0. This was drawn 24hrs post-dose. Will continue to hold dosing, and will get another level in 24 hours. Pharmacy Service will continue to monitor and adjust dosing as required. Follow-Up Labs Follow-Up Labs: Trough: Vancomycin (random) Date/Time Labs Ordered Labs to be done on [date and time ordered]: 09/07/23 @0600
[2023-09-06 07:11] LABS: Differential Indicated SCAN CRITERIA MET; White Blood Count 30.1 K/mm3 (4.4-11.0)
[2023-09-06] MEDS: Ipratropium/Albuterol Sulfate 3 ML AMPUL.NEB INHALATION ×3 (07:42→19:49)
[2023-09-06] MEDS: Pantoprazole Sodium 40 MG Tablet PO ×2 (09:24→22:24)
[2023-09-06] MEDS: Lisinopril 10 MG Tablet PO (09:24)
[2023-09-06] MEDS: Enoxaparin 40 MG/0.4 ML Syringe SC (09:24)
--- NOTE | 2023-09-06 12:10 | PCM.PN.HOSP ---
Reason for Visit Reason for Visit: Diagnoses Sepsis, unspecified organism (09/02/23) Elevated white blood cell count, unspecified (09/02/23) Metabolic encephalopathy (09/02/23) Duodenitis without bleeding (09/02/23) Acute cystitis with hematuria (09/02/23) Bilious vomiting (09/02/23) Subjective Subjective Patient is a 63-year-old gentleman with history of learning disability, multiple myeloma who presented to the emergency department with abdominal pain nausea and vomiting. History was limited given patient's underlying learning disability. Initial imaging studies obtained with CT of the abdomen demonstrated severe duodenal wall thickening and indistinct pancreatic head. Patient was also found to have elevated WBC count. Admitted for subsequent management Objective Data Objective Data Vital Signs: Vital Signs Temp Pulse Resp BP Pulse Ox O2 Del Method O2 Flow Rate 98.5 F 69 18 141/86 H 95 Nasal Cannula 2 09/06/23 10:09/06/23 10:09/06/23 10:09/06/23 10:09/06/23 10:09/06/23 10:09/06/23 10:05 FiO2 48 09/05/23 10:00 Oxygen Flow Rate (L/min) 2 Oxygen Delivery Method Nasal Cannula Weight: 123.5 kg Body Mass Index (BMI) 38.9 Intake & Output: Intake and Output for Last 24 Hours 09/04/23 09/05/23 09/06/23 23:59 23:59 23:59 Intake Total 2110 / 3110 3901 / 3901 300 / 300 Output Total 2900 / 4150 6700 / 6700 1200 / 1200 Balance -790 / -1040 -2799 / -2799 -900 / -900 Lab / Micro Data 09/06/23 05:30 09/06/23 05:30 Labs: Laboratory Results - last 24 hr 09/05/23 16:54: Vancomycin Trough 28.6 H 09/06/23 05:30: WBC 30.1 H*, RBC 3.70 L, Hgb 11.2 L, Hct 33.3 L, MCV 90.0, MCH 30.3, MCHC 33.6, RDW Std Deviation 47.2 H, RDW Coeff of Heath 14.4, Plt Count 223, MPV 11.9, Immature Gran % (Auto) 0.500, Neut % (Auto) 31.7 L, Lymph % (Auto) 61.3 H, [place] % (Auto) 5.5, Eos % (Auto) 0.8, Baso % (Auto) 0.2, Absolute Neuts (auto) 9.5 H, Absolute Lymphs (auto) 18.49 H, Nucleated RBC % 0, Diff Path Review May foll, Sodium 135 L, Potassium 3.7, Chloride 100, Carbon Dioxide 29.0, Anion Gap 6, BUN 20 H, Creatinine 1.79 H, Estim Creat Clear Calc 54.96, Est GFR (MDRD) Af Amer 49 L, Est GFR (MDRD) Non-Af 41 L, BUN/Creatinine Ratio 11.2, Glucose 122 H, Calcium 7.9 L, Random Vancomycin 23.0 H Micro: Microbiology 09/02/23 02:45 Blood Culture (Wb) - Anticubital Left Blood Culture - Preliminary No growth in 48 hours. 09/02/23 02:05 Blood Culture (Wb) - Anticubital Left Blood Culture - Preliminary No growth in 48 hours. 09/02/23 00:02 Urine, Clean Catch Urine Culture - Final Mixed Gram Positive Organisms 09/02/23 02:28 Mucosa - Nose SARS-CoV-2, Influenza & RSV (PCR) - Final Physical Exam Narrative GENERAL: cooperative HEENT: Scalp cellulitis with dressing in place EYES; Anicteric, Normal Conjunctiva NECK; supple, normal thyroid, RESPIRATORY: Diminished to auscultation CARDIOVASCULAR: Regular S1 S2, GI: soft, normoactive bowel sounds, : No Renal angle tenderness; EXTREMITIES: edema, no clubbing, MUSCULOSKELETAL: no muscle wasting NEURO: Awake; no lateralizing signs. SKIN: No Rash PSYCH; Flat affect Assessment & Plan Assessment/Plan (1) Sepsis: QUALIFIERS: Sepsis acute organ dysfunction status: unspecified Sepsis type: sepsis due to unspecified organism Qualified Code(s): A41.9 - Sepsis, unspecified organism (2) Duodenitis: (3) UTI (urinary tract infection): QUALIFIERS: Hematuria presence: with hematuria Urinary tract infection type: acute cystitis Qualified Code(s): N30.01 - Acute cystitis with hematuria (4) Leukocytosis: QUALIFIERS: Leukocytosis type: unspecified Qualified Code(s): D72.829 - Elevated white blood cell count, unspecified (5) Nausea & vomiting: QUALIFIERS: Vomiting type: bilious vomiting Qualified Code(s): R11.14 - Bilious vomiting (6) Metabolic encephalopathy: PLAN: Plan Patient is a 63-year-old gentleman with history of learning disability, multiple myeloma who presented to the emergency department with abdominal pain nausea and vomiting. History was limited given patient's underlying learning disability. Initial imaging studies obtained with CT of the abdomen demonstrated severe duodenal wall thickening and indistinct pancreatic head. Patient was also found to have elevated WBC count. Admitted for subsequent management 1. Abdominal pain ? Secondary to acute duodenitis; patient managed with PPI consult placed to Dr. Oliver with gastroenterology who did perform EGD on 09/03/2023 which demonstrated - LA Grade B esophagitis with no bleeding. Grade I esophageal varices. No gross lesions in the entire stomach. Acute duodenitis. 1. Leukocytosis ? Secondary to combination of acute cystitis as well as Cellulitis 2. Acute cystitis ? Managed with Zosyn, urine culture mixed positive organisms. 4. Scalp cellulitis ? Managed with broad-spectrum antibiotic therapy 5. Hypertension - Blood pressure controlled, home medications continued with dose adjustment as needed 6. Acute congestive heart failure ? Patient managed with Lasix echo ordered for EF assessment 7. Extensive lymphadenopathy ?Patient apparently has underlying history of multiple myeloma consult placed to oncology on admission 8. Learning disability ? Patient was apparently living with the father who passed recently. Has a brother who is her legal guardian. Plan is for patient to be discharged to [facility] facility pending placement in a [facility] 9.Class II obesity with BMI of 39 ? Complicating care 10. DVT prophylaxis ? SC Lovenox Time spent in the patient's overall evaluation,decision-making process, review of diagnostic data, adjustment of management, discussion with other providers, nursing nursing and ancillary staff involved in patient's care documentation, 53 minutes Charges/Coding Visit Charges Inpatient E&M: 58299 [facility] L3
--- NOTE | 2023-09-06 12:29 | ECHOD_ITS ---
Reason For Study: CHF Procedure This was a 2D Doppler, Color Flow transthoracic echocardiogram. Technically difficult study due to body habtus and patient unable to cooperate. Definity deferred due to patient agiation. Exam performed portable in patient room. Left Ventricle Normal size and thickness. The left ventricular ejection fraction is 65 %. Normal diastology for age. Right Ventricle Normal right ventricle. Atria Normal left atrium. The right atrium is not well visualized. Mitral Valve Trivial mitral valve insufficiency. Tricuspid Valve The tricuspid valve is not well visualized. Aortic Valve Trivial aortic valve insufficiency. Pulmonic Valve The pulmonic valve is not well visualized. Great Vessels Normal sized aortic root. Pericardium/Pleural No pericardial effusion. MMode/2D Measurements & Calculations LVIDd: 5.2 cm IVSd: 0.89 cm Ao root diam: 3.0 cm LVIDs: 3.2 cm LVPWd: 0.93 cm FS: 37.8 % LAV(MOD-bp): 65.4 ml LA A4 area: 25.2 cm2 LA dimension(2D): 3.6 cm LAV(MOD-bp) Indexed: 27.5 ml/m2 LAV(MOD-sp2): 49.3 ml LAV(MOD-sp4): 72.4 ml Time Measurements MV dec time: 0.25 sec Doppler Measurements & Calculations MV E max emanuel: 90.0 cm/sec Lat Peak E' Emanuel: 12.1 cm/sec Med Peak E' Emanuel: 10.6 cm/sec MV A max emanuel: 64.0 cm/sec E/E' lat: 7.4 E/E' med: 8.5 MV E/A: 1.4 MV V2 max: 99.6 cm/sec MV dec slope: 352.5 cm/sec2 Ao V2 max: 137.9 cm/sec MV max P.0 mmHg Ao max P.6 mmHg MV V2 mean: 53.7 cm/sec Ao V2 mean: 99.3 cm/sec MV mean P.4 mmHg Ao mean P.4 mmHg MV V2 VTI: 27.1 cm Ao V2 VTI: 29.8 cm AV (velocity ratio): 0.84 LV V1 max: 115.7 cm/sec PA V2 max: 104.2 cm/sec LV V1 max P.4 mmHg PA V2 mean: 74.4 cm/sec LV V1 mean P.3 mmHg LV V1 mean: 86.6 cm/sec LV V1 VTI: 24.9 cm ECHO/Echo Complete Interpretation Summary Technically difficult study. The left ventricular ejection fraction is 65 %. Normal diastology for age Ordering Physician: Remy Grimaldo Referring Physician: KB CARROLL Performed By: Yisel Lowe RCS
--- NOTE | 2023-09-06 13:18 | CASEMGMT ---
Social Work Spoke with patient's brother/Legal Guardian today, who confirms desire to look at short term SNF for patient, to help with endurance and strengthening. Noted with therapy, that patient walked 20 feet contact guard, so short term SNF may be of benefit from a functional standpoint. The Medicaid has still not come through yet for patient to go to the [facility] in [place]. Cross referenced SNF choices from [employer] PPO website to [employer] Guide. Create SN[facility] list for patient's geographical region, or [facility], which includes Medicare quality data and star ratings. Sent list to the brother's cell phone at [phone]. Asked the brother to let this field underwriter know 3 choices. Will work on referrals once choices are determined. Plan: Anticipate short term SNF. Social Work following. -NIKHIL Abdullahi
[2023-09-06 13:32] LABS: Pathologist Review Reviewed
[2023-09-07] VITALS (10 sets, daily range): BP systolic 128–149; BP diastolic 70–79; PULSE 69–88; RESP 16–20; TEMP 36.2–36.7; O2SAT 95–97; BMI 39.0
[2023-09-07] MEDS: Piperacil/Tazobactam 3.375 GM in 0.9% Normal Saline (50mL MB+) 50 ML IV ×3 (05:30→22:00)
[2023-09-07 06:32] LABS: Absolute Lymphocyte Count 17.57 X10^3/uL (0.83-4.51); Absolute Neutrophil Count 7.8 X10^3/uL (2.0-7.7); Basophil# 0.07 X10^3/uL; Basophil% 0.3 % (0-1); Eosinophil# 0.54 X10^3/uL; Hematocrit 31.1 % (40-54); Hemoglobin 10.4 g/dL (13.0-16.5); Lymphocyte # 17.57 X10^3/ul (0.83-4.51); Lymphocyte % 63.9 % (19-41); Mean Corp Hgb Conc 33.4 g/dL (32-36); Mean Corpuscular Volume 89.6 fL (80-94); Mean Platelet Vol. 12.2 fl (6.2-12.0); Monocyte# 1.37 X10^3/uL; NRBC Flagged by Analyzer 0 % (0-5); Neutrophil # 7.84 X10^3/uL (2.7-7.7); Neutrophil % 28.4 % (47-70); POSITIVE DIFFERENTIAL YES; POSITIVE MORPHOLOGY YES; Platelet Count 230 K/mm3 (150-450); RBC Distribution Width CV 14.3 % (11.6-14.6); RBC Distribution Width SD 46.3 fl (35.1-43.9); Red Blood Count 3.47 M/mm3 (4.6-6.2); White Blood Count 27.5 K/mm3 (4.4-11.0)
[2023-09-07 06:48] LABS: Differential Indicated SCAN CRITERIA MET
[2023-09-07 06:58] LABS: Anion Gap 6 (5-15); BUN 22 mg/dL (7-18); BUN/Creat Ratio 13.2 RATIO (10-20); Calcium,Total 7.8 mg/dL (8.5-10.1); Chloride 100 mmol/L (98-107); Creatinine, Serum 1.67 mg/dL (0.70-1.30); EST Glomerular Filtration Rate 44 mL/min (>60); Est Glom Filt Rate - Afr Amer 53 mL/min (>60); Estimated Creatinine Clearance 58.98 ml/min; Glucose 116 mg/dL (74-106); Magnesium 2.1 mg/dL (1.6-2.6); Phosphorus 3.4 mg/dL (2.5-4.9); Potassium 3.3 mmol/L (3.5-5.1); Sodium Level 134 mmol/L (136-145)
[2023-09-07 07:00] LABS: Vancomycin, Random Level 13.2 ug/mL (0.0-15.0)
[2023-09-07] MEDS: Ipratropium/Albuterol Sulfate 3 ML AMPUL.NEB INHALATION ×3 (07:45→20:40)
--- NOTE | 2023-09-07 08:43 | CASEMGMT ---
Addendum entered by Emerita Maxwell 09/07/23 12:45: Social Work SW called pt's guardian/brother Huy, let him know that [facility] cannot take pt but [facility] can and they started precert. SW explained as per physician pt may be ready tomorrow, so once we have precert we will plan for discharge to [facility], hopefully tomorrow. Huy states understanding. MARC Pradhan Original Note: Social Work SW received email back with SNF choices. They are [facility]. [facility], [facility]. [facility], [facility]. Referral made to [facility] yesterday, they cannot accommodate pt. Referral will be sent to [facility] today. MARC Pradhan
--- NOTE | 2023-09-07 08:45 | PN.HOSP_ITS ---
Reason for Visit Reason for Visit: Diagnoses Sepsis, unspecified organism (09/02/23) Elevated white blood cell count, unspecified (09/02/23) Metabolic encephalopathy (09/02/23) Duodenitis without bleeding (09/02/23) Acute cystitis with hematuria (09/02/23) Bilious vomiting (09/02/23) Subjective Subjective Patient seen no change in clinical condition WBC count trending down diagnostic data syndrome potassium of 3.3 additional potassium given Objective Data Objective Data Vital Signs: Vital Signs Temp Pulse Resp BP Pulse Ox O2 Del Method O2 Flow Rate 97.4 F L 74 18 134/74 H 96 Nasal Cannula 2 09/07/23 04:35 09/07/23 04:35 09/07/23 04:35 09/07/23 04:35 09/07/23 04:35 09/07/23 04:35 09/07/23 04:35 FiO2 48 09/05/23 10:00 Oxygen Flow Rate (L/min) 2 Oxygen Delivery Method Nasal Cannula Weight: 123.8 kg Body Mass Index (BMI) 39.0 Intake & Output: Intake and Output for Last 24 Hours 09/05/23 09/06/23 09/07/23 23:59 23:59 23:59 Intake Total 3901 / 3901 1290 / 2090 1150 / 1150 Output Total 6700 / 6700 1900 / 2250 750 / 750 Balance -2799 / -2799 -610 / -160 400 / 400 Lab / Micro Data 09/07/23 06:18 09/07/23 06:18 Labs: Laboratory Results - last 24 hr 09/06/23 05:30: Diff Path Review Reviewed 09/07/23 06:18: WBC 27.5 H, RBC 3.47 L, Hgb 10.4 L, Hct 31.1 L, MCV 89.6, MCH 30.0, MCHC 33.4, RDW Std Deviation 46.3 H, RDW Coeff of Heath 14.3, Plt Count 230, MPV 12.2 H, Immature Gran % (Auto) 0.400, Neut % (Auto) 28.4 L, Lymph % (Auto) 63.9 H, Yell % (Auto) 5.0, Eos % (Auto) 2.0, Baso % (Auto) 0.3, Absolute Neuts (auto) 7.8 H, Absolute Lymphs (auto) 17.57 H, Nucleated RBC % 0, Sodium 134 L, Potassium 3.3 L, Chloride 100, Carbon Dioxide 28.0, Anion Gap 6, BUN 22 H, Creatinine 1.67 H, Estim Creat Clear Calc 58.98, Est GFR (MDRD) Af Amer 53 L, Est GFR (MDRD) Non-Af 44 L, BUN/Creatinine Ratio 13.2, Glucose 116 H, Calcium 7.8 L, Phosphorus 3.4, Magnesium 2.1, Random Vancomycin 13.2 Micro: Microbiology 09/02/23 02:45 Blood Culture (Wb) - Anticubital Left Blood Culture - Preliminary No growth in 48 hours. 09/02/23 02:05 Blood Culture (Wb) - Anticubital Left Blood Culture - Preliminary No growth in 48 hours. 09/02/23 00:02 Urine, Clean Catch Urine Culture - Final Mixed Gram Positive Organisms 09/02/23 02:28 Mucosa - Nose SARS-CoV-2, Influenza & RSV (PCR) - Final Radiography Diagnostic Testing: Radiology Impression Echocardiogram 09/06/23 12:29 Interpretation Summary Technically difficult study. The left ventricular ejection fraction is 65 %. Normal diastology for age Ordering Physician: Remy Grimaldo Referring Physician: KB CARROLL Performed By: Yisel Lowe RCS Physical Exam Narrative GENERAL: cooperative HEENT: Scalp cellulitis with dressing in place EYES; Anicteric, Normal Conjunctiva NECK; supple, normal thyroid, RESPIRATORY: Diminished to auscultation CARDIOVASCULAR: Regular S1 S2, GI: soft, normoactive bowel sounds, : No Renal angle tenderness; EXTREMITIES: edema, no clubbing, MUSCULOSKELETAL: no muscle wasting NEURO: Awake; no lateralizing signs. SKIN: No Rash PSYCH; Flat affect Assessment & Plan Assessment/Plan (1) Duodenitis: (2) Metabolic encephalopathy: PLAN: Plan Patient is a 63-year-old gentleman with history of learning disability, multiple myeloma who presented to the emergency department with abdominal pain nausea and vomiting. History was limited given patient's underlying learning disability. Initial imaging studies obtained with CT of the abdomen demonstrated severe duodenal wall thickening and indistinct pancreatic head. Patient was also found to have elevated WBC count. Admitted for subsequent management 1. Abdominal pain ? Secondary to acute duodenitis; patient managed with PPI consult placed to Dr. Oliver with gastroenterology who did perform EGD on 09/03/2023 which demonstrated - LA Grade B esophagitis with no bleeding. Grade I esophageal varices. No gross lesions in the entire stomach. Acute duodenitis. ? 09/07/2023 patient remains on PPI 2. Leukocytosis ? Secondary to combination of acute cystitis as well as Cellulitis ? 09/07/2023 WBC count remains elevated 3. Acute cystitis ? Managed with Zosyn, urine culture mixed positive organisms. 4. Scalp cellulitis ? Managed with broad-spectrum antibiotic therapy 5. Hypertension - Blood pressure controlled, home medications continued with dose adjustment as needed 6. Acute congestive heart failure ? Patient managed with Lasix echo ordered for EF assessment 7. Extensive lymphadenopathy ?Patient apparently has underlying history of multiple myeloma consult placed to oncology on admission 8. Learning disability ? Patient was apparently living with the father who passed recently. Has a brother who is her legal guardian. Plan is for patient to be discharged to shelter facility pending placement in a skilled nursing 9.Class II obesity with BMI of 39 ? Complicating care 10. DVT prophylaxis ? SC Lovenox 11. Acute kidney injury ? Potential nephrotoxic medications including lisinopril discontinued. Also discontinue vancomycin patient started on saline with subsequent monitoring of electrolytes ordered 12. Hypokalemia ? Corrected per protocol repeat labs ordered in a.m. for follow-up Time spent in the patient's overall evaluation,decision-making process, review of diagnostic data, adjustment of management, discussion with other providers, nursing nursing and ancillary staff involved in patient's care documentation, 50 minutes Charges/Coding Visit Charges Inpatient E&M: [id number] [facility] Hosp L3
[2023-09-07 08:47] LABS: Differential Comment SCANNED; Reactive Lymphocyte 1+; Smudge Cells 2+
--- NOTE | 2023-09-07 09:11 | CASEMGMT ---
Addendum entered by Serenity Montenegro 09/07/23 12:13: [facility] accepted and will start precert. SW updated. Serenity Montenegro, Discharge Planning Asst. Original Note: Discharge Planning Referral sent via [facility] to [facility]. Serenity Montenegro, Discharge Planning Asst.
[2023-09-07] MEDS: Potassium Chloride Oral Tablet 20 MEQ 40 MEQ PO (09:19)
[2023-09-07] MEDS: Pantoprazole Sodium 40 MG Tablet PO ×2 (09:19→23:14)
[2023-09-07] MEDS: KCL 40mEq in 0.9% NS 40 MEQ/1,000 ML IV.SOLN 125 MEQ IV ×2 (11:20→19:44)
[2023-09-07] MEDS: 0.9% Normal Saline (250mL Bag) 250 ML 15 ML IV (15:18)
--- NOTE | 2023-09-07 16:47 | CASEMGMT ---
Social Work Letter of guardianship showing pt's brother Huy Alonso is guardian is on the front of the paper chart. MARC Pradhan
[2023-09-08] VITALS (8 sets, daily range): BP systolic 133–151; BP diastolic 72–111; PULSE 72–78; RESP 16–18; TEMP 36.5–37.1; O2SAT 95–98; BMI 39.0
[2023-09-08] MEDS: KCL 40mEq in 0.9% NS 40 MEQ/1,000 ML IV.SOLN 125 MEQ IV ×3 (04:18→23:36)
[2023-09-08] MEDS: Piperacil/Tazobactam 3.375 GM in 0.9% Normal Saline (50mL MB+) 50 ML IV ×3 (05:30→23:32)
--- NOTE | 2023-09-08 07:06 | NURSING ---
assisted electrical laboratory technician to attempt to obtain blood draw. Patient refused multiple times, even when explained the need for the blood work. Pt. refused blood draw when approached by other staff members as well.
[2023-09-08] MEDS: Ipratropium/Albuterol Sulfate 3 ML AMPUL.NEB INHALATION ×3 (07:25→19:24)
--- NOTE | 2023-09-08 08:34 | PN.HOSP_ITS ---
Reason for Visit Reason for Visit: Diagnoses Sepsis, unspecified organism (09/02/23) Elevated white blood cell count, unspecified (09/02/23) Metabolic encephalopathy (09/02/23) Duodenitis without bleeding (09/02/23) Acute cystitis with hematuria (09/02/23) Bilious vomiting (09/02/23) Subjective Subjective Patient seen clinical condition continues to improve. Patient apparently refusing blood draws is a Objective Data Objective Data Vital Signs: Vital Signs Temp Pulse Resp BP Pulse Ox O2 Del Method O2 Flow Rate 98.1 F 75 18 150/111 H 98 Nasal Cannula 2 09/08/23 04:15 09/08/23 04:15 09/08/23 04:15 09/08/23 04:15 09/08/23 04:15 09/08/23 08:22 09/08/23 08:22 FiO2 48 09/05/23 10:00 Oxygen Flow Rate (L/min) 2 Oxygen Delivery Method Nasal Cannula Weight: 123.8 kg Body Mass Index (BMI) 39.0 Intake & Output: Intake and Output for Last 24 Hours 09/06/23 09/07/23 09/08/23 23:59 23:59 23:59 Intake Total 1290 / 2090 3210 / 3860 1942 / 1942 Output Total 1900 / 2250 1600 / 2150 550 / 550 Balance -610 / -160 1610 / 1710 1392 / 1392 Lab / Micro Data 09/07/23 06:18 09/07/23 06:18 Labs: Laboratory Results - last 24 hr 09/07/23 06:18: Differential Comment SCANNED, Reactive Lymphocytes 1+, Smudge Cells 2+ Micro: Microbiology 09/02/23 02:45 Blood Culture (Wb) - Anticubital Left Blood Culture - Final No growth in 5 days. 09/02/23 02:05 Blood Culture (Wb) - Anticubital Left Blood Culture - Final No growth in 5 days. 09/02/23 00:02 Urine, Clean Catch Urine Culture - Final Mixed Gram Positive Organisms 09/02/23 02:28 Mucosa - Nose SARS-CoV-2, Influenza & RSV (PCR) - Final Physical Exam Narrative GENERAL: cooperative HEENT: Scalp cellulitis with dressing in place EYES; Anicteric, Normal Conjunctiva NECK; supple, normal thyroid, RESPIRATORY: Diminished to auscultation CARDIOVASCULAR: Regular S1 S2, GI: soft, normoactive bowel sounds, : No Renal angle tenderness; EXTREMITIES: edema, no clubbing, MUSCULOSKELETAL: no muscle wasting NEURO: Awake; no lateralizing signs. SKIN: No Rash PSYCH; Flat affect Assessment & Plan Assessment/Plan (1) Duodenitis: (2) Metabolic encephalopathy: PLAN: Plan Patient is a 63-year-old gentleman with history of learning disability, multiple myeloma who presented to the emergency department with abdominal pain nausea and vomiting. History was limited given patient's underlying learning disability. Initial imaging studies obtained with CT of the abdomen demonstrated severe duodenal wall thickening and indistinct pancreatic head. Patient was also found to have elevated WBC count. Admitted for subsequent management 1. Abdominal pain ? Secondary to acute duodenitis; patient managed with PPI consult placed to Dr. Oliver with gastroenterology who did perform EGD on 09/03/2023 which demonstrated - LA Grade B esophagitis with no bleeding. Grade I esophageal varices. No gross lesions in the entire stomach. Acute duodenitis. ? 09/07/2023 patient remains on PPI ? 09/08/2023 no complaints of abdominal pain this morning 2. Leukocytosis ? Secondary to combination of acute cystitis as well as Cellulitis ? 09/07/2023 WBC count remains elevated 3. Acute cystitis ? Managed with Zosyn, urine culture mixed positive organisms. 4. Scalp cellulitis ? Managed with broad-spectrum antibiotic therapy 5. Hypertension - Blood pressure controlled, home medications continued with dose adjustment as needed 6. Acute congestive heart failure ? Patient managed with Lasix echo ordered for EF assessment 7. Extensive lymphadenopathy ?Patient apparently has underlying history of multiple myeloma consult placed to oncology on admission 8. Learning disability ? Patient was apparently living with the father who passed recently. Has a brother who is her legal guardian. Plan is for patient to be discharged to retirement facility pending placement in a correction 9.Class II obesity with BMI of 39 ? Complicating care 10. DVT prophylaxis ? SC Lovenox 11. Acute kidney injury ? Potential nephrotoxic medications including lisinopril discontinued. Also discontinue vancomycin patient started on saline with subsequent monitoring of electrolytes ordered 12. Hypokalemia ? Corrected per protocol repeat labs ordered in a.m. for follow-up Time spent in the patient's overall evaluation,decision-making process, review of diagnostic data, adjustment of management, discussion with other providers, nursing nursing and ancillary staff involved in patient's care documentation, 35 minutes Charges/Coding Visit Charges Inpatient E&M: 02268 [facility] L2
--- NOTE | 2023-09-08 08:35 | NURSING ---
This RN at bedside with pt and explained the importance of drawing am labs. Pt continues to refused. MD notified and came to bedside. Pt still refusing am labs. See physician communication.
[2023-09-08] MEDS: Pantoprazole Sodium 40 MG Tablet PO ×2 (08:56→23:28)
[2023-09-09 04:50] VITALS: BMI 39.2
[2023-09-09 05:09] VITALS: BP 151/80; PULSE 78; RESP 18; TEMP 36.5; O2SAT 97
[2023-09-09] MEDS: Piperacil/Tazobactam 3.375 GM in 0.9% Normal Saline (50mL MB+) 50 ML IV ×2 (05:15→14:25)
[2023-09-09] MEDS: Ipratropium/Albuterol Sulfate 3 ML AMPUL.NEB INHALATION ×2 (07:11→12:56)
[2023-09-09 07:45] VITALS: PULSE 76; RESP 18
[2023-09-09] MEDS: Pantoprazole Sodium 40 MG Tablet PO (08:34)
[2023-09-09] MEDS: KCL 40mEq in 0.9% NS 40 MEQ/1,000 ML IV.SOLN 125 MEQ IV (08:35)
[2023-09-09 08:39] VITALS: BP 153/79; PULSE 78; RESP 16; TEMP 36.8; O2SAT 96
--- NOTE | 2023-09-09 11:18 | PN.HOSP_ITS ---
Reason for Visit Reason for Visit: Diagnoses Sepsis, unspecified organism (09/02/23) Elevated white blood cell count, unspecified (09/02/23) Metabolic encephalopathy (09/02/23) Duodenitis without bleeding (09/02/23) Acute cystitis with hematuria (09/02/23) Bilious vomiting (09/02/23) Subjective Subjective Patient seen again declined blood draws. Patient was approved for transfer to senior living [facility] Objective Data Objective Data Vital Signs: Vital Signs Temp Pulse Resp BP Pulse Ox O2 Del Method O2 Flow Rate 98.3 F 78 16 153/79 H 96 Room Air 2 09/09/23 08:39 09/09/23 08:39 09/09/23 08:39 09/09/23 08:39 09/09/23 08:39 09/09/23 08:39 09/08/23 08:34 FiO2 48 09/05/23 10:00 Oxygen Flow Rate (L/min) 2 Oxygen Delivery Method Room Air Weight: 123.8 kg Body Mass Index (BMI) 39.2 Intake & Output: Intake and Output for Last 24 Hours 09/07/23 09/08/23 09/09/23 23:59 23:59 23:59 Intake Total 3210 / 3860 5242 / 5242 1290 / 1290 Output Total 1600 / 2150 1900 / 2550 1125 / 1125 Balance 1610 / 1710 3342 / 2692 165 / 165 Lab / Micro Data 09/07/23 06:18 09/07/23 06:18 Micro: Microbiology 09/02/23 02:45 Blood Culture (Wb) - Anticubital Left Blood Culture - Final No growth in 5 days. 09/02/23 02:05 Blood Culture (Wb) - Anticubital Left Blood Culture - Final No growth in 5 days. 09/02/23 00:02 Urine, Clean Catch Urine Culture - Final Mixed Gram Positive Organisms 09/02/23 02:28 Mucosa - Nose SARS-CoV-2, Influenza & RSV (PCR) - Final Physical Exam Narrative GENERAL: cooperative HEENT: Scalp cellulitis with dressing in place EYES; Anicteric, Normal Conjunctiva NECK; supple, normal thyroid, RESPIRATORY: Diminished to auscultation CARDIOVASCULAR: Regular S1 S2, GI: soft, normoactive bowel sounds, : No Renal angle tenderness; EXTREMITIES: edema, no clubbing, MUSCULOSKELETAL: no muscle wasting NEURO: Awake; no lateralizing signs. SKIN: No Rash PSYCH; Flat affect Assessment & Plan Assessment/Plan (1) Duodenitis: (2) Metabolic encephalopathy: PLAN: Plan Patient is a 63-year-old gentleman with history of learning disability, multiple myeloma who presented to the emergency department with abdominal pain nausea and vomiting. History was limited given patient's underlying learning disability. Initial imaging studies obtained with CT of the abdomen demonstrated severe duodenal wall thickening and indistinct pancreatic head. Patient was also found to have elevated WBC count. Admitted for subsequent management 1. Abdominal pain ? Secondary to acute duodenitis; patient managed with PPI consult placed to Dr. Oliver with gastroenterology who did perform EGD on 09/03/2023 which demonstrated - LA Grade B esophagitis with no bleeding. Grade I esophageal varices. No gross lesions in the entire stomach. Acute duodenitis. ? 09/07/2023 patient remains on PPI ? 09/08/2023 no complaints of abdominal pain this morning 2. Leukocytosis ? Secondary to combination of acute cystitis as well as Cellulitis ? 09/07/2023 WBC count remains elevated 3. Acute cystitis ? Managed with Zosyn, urine culture mixed positive organisms. 4. Scalp cellulitis ? Managed with broad-spectrum antibiotic therapy 5. Hypertension - Blood pressure controlled, home medications continued with dose adjustment as needed 6. Acute on chronic congestive heart failure with preserved ejection fraction ? Patient managed with Lasix echo ordered for EF assessment ? Patient responded to that radiotherapy 2D echo obtained demonstrated EF of 65% 7. Extensive lymphadenopathy ?Patient apparently has underlying history of multiple myeloma consult placed to oncology on admission 8. Learning disability ? Patient was apparently living with the father who passed recently. Has a brother who is her legal guardian. Plan is for patient to be discharged to senior living facility pending placement in a snf 9.Class II obesity with BMI of 39 ? Complicating care 10. DVT prophylaxis ? SC Lovenox 11. Acute kidney injury ? Potential nephrotoxic medications including lisinopril discontinued. Also discontinue vancomycin patient started on saline with subsequent monitoring of electrolytes ordered 12. Hypokalemia ? Corrected per protocol repeat labs ordered in a.m. for follow-up 13. Physical deconditioning - Requested for PT OT eval and social group worker to assist with discharge planning. Patient was approved for transfer to senior living facility by his insurance [employer] Time spent in the patient's overall evaluation,decision-making process, review of diagnostic data, adjustment of management, discussion with other providers, nursing nursing and ancillary staff involved in patient's care documentation, 35 minutes Charges/Coding Visit Charges Inpatient E&M: 98500 Subs Hosp L2
--- NOTE | 2023-09-09 11:30 | PCM.DC.SUM ---
Providers Date of Admission: 09/02/23 Date of Discharge: 09/09/23 Primary Care Physician: Dr. Anthony Vang MD Consultations 09/02/23 02:22 Consult: Gastroenterology Routine Consulting Provider: [facility] Reason for Consult: Severe duodenitis evident on CT EMERGENT Consult: No Notified: Yes Date Notified: 09/02/23 Time Notified: 08:13 Method of Notification: Text Consult: [employer] Winder / Pulmonary Medicine Routine Consulting Provider: [facility]/Pulmonary Med Reason for Consult: Severe duodenitis on CT with acute cystitis in the setting of severe MM EMERGENT Consult: No Notified: Yes Date Notified: 09/02/23 Time Notified: 02:23 Method of Notification: Text 09/02/23 02:43 Consult: Oncology/Hematology Routine Consulting Provider: [facility] Reason for Consult: Severe multiple myeloma with diffuse lymphadenopathy EMERGENT Consult: No Notified: Yes Date Notified: 09/06/23 Time Notified: 14:33 Method of Notification: Text Comments:: Notified of consult from 09/0109/02/23 13:13 Consult: Onc/Wound/new vehicle sales consultant Routine Comment: Reason for Consult:: wounds to lle and forehead Reason For Visit: SEPSIS, DUODENITIS, ACUTE CYSTITIS, METABOLIC Diagnosis Discharge Diagnosis (1) Duodenitis: Status: Acute Code(s): K29.80 - Duodenitis without bleeding (2) Metabolic encephalopathy: Status: Acute Code(s): G93.41 - Metabolic encephalopathy Plan Patient is a 63-year-old gentleman with history of learning disability, multiple myeloma who presented to the emergency department with abdominal pain nausea and vomiting. History was limited given patient's underlying learning disability. Initial imaging studies obtained with CT of the abdomen demonstrated severe duodenal wall thickening and indistinct pancreatic head. Patient was also found to have elevated WBC count. Admitted for subsequent management 1. Abdominal pain ? Secondary to acute duodenitis; patient managed with PPI consult placed to Dr. Oliver with gastroenterology who did perform EGD on 09/03/2023 which demonstrated - LA Grade B esophagitis with no bleeding. Grade I esophageal varices. No gross lesions in the entire stomach. Acute duodenitis. ? 09/07/2023 patient remains on PPI ? 09/08/2023 no complaints of abdominal pain this morning 2. Leukocytosis ? Secondary to combination of acute cystitis as well as Cellulitis ? 09/07/2023 WBC count remains elevated 3. Acute cystitis ? Managed with Zosyn, urine culture mixed positive organisms. 4. Scalp cellulitis ? Managed with broad-spectrum antibiotic therapy 5. Hypertension - Blood pressure controlled, home medications continued with dose adjustment as needed 6. Acute on chronic congestive heart failure with preserved ejection fraction ? Patient managed with Lasix echo ordered for EF assessment ? Patient responded to that radiotherapy 2D echo obtained demonstrated EF of 65% 7. Extensive lymphadenopathy ?Patient apparently has underlying history of multiple myeloma consult placed to oncology on admission 8. Learning disability ? Patient was apparently living with the father who passed recently. Has a brother who is her legal guardian. Plan is for patient to be discharged to [facility] facility pending placement in a long term 9.Class II obesity with BMI of 39 ? Complicating care 10. DVT prophylaxis ? SC Lovenox 11. Acute kidney injury ? Potential nephrotoxic medications including lisinopril discontinued. Also discontinue vancomycin patient started on saline with subsequent monitoring of electrolytes ordered 12. Hypokalemia ? Corrected per protocol repeat labs ordered in a.m. for follow-up 13. Physical deconditioning - Requested for PT OT eval and social services analyst to assist with discharge planning. Patient was approved for transfer to [facility] facility by his insurance company Time spent in the patient's overall evaluation,decision-making process, review of diagnostic data, adjustment of management, discussion with other providers, nursing nursing and ancillary staff involved in patient's care documentation, 35 minutes Medications at Discharge Home Medications lisinopril 10 mg tablet 10 mg PO DAILY BP 12/15/16 amlodipine 5 mg tablet 5 mg PO DAILY #30 tabs 09/09/23 amoxicillin 875 mg-potassium clavulanate 125 mg tablet 1 tab PO BID #14 tabs 09/09/23 ipratropium 0.5 mg-albuterol 3 mg (2.5 mg base)/3 mL nebulization soln 3 ml inhalation Q6HWA.RT #0 mL 09/09/23 pantoprazole 40 mg tablet,delayed release 40 mg PO BID #0 tabs 09/09/23 potassium chloride 20 mEq tablet,extended release 20 meq PO BID #30 tabs 09/09/23 Hospital Course Procedures 2-D Echocardiogram Physical Exam Narrative GENERAL: cooperative HEENT: Scalp cellulitis with dressing in place EYES; Anicteric, Normal Conjunctiva NECK; supple, normal thyroid, RESPIRATORY: Diminished to auscultation CARDIOVASCULAR: Regular S1 S2, GI: soft, normoactive bowel sounds, : No Renal angle tenderness; EXTREMITIES: edema, no clubbing, MUSCULOSKELETAL: no muscle wasting NEURO: Awake; no lateralizing signs. SKIN: No Rash PSYCH; Flat affect Weight / BMI Weight Weight: 123.8 kg Body Mass Index (BMI) 39.2 ABG / Lab / Microbiology Data 09/07/23 06:18 09/07/23 06:18 Microbiology: Microbiology 09/02/23 02:45 Blood Culture (Wb) - Anticubital Left Blood Culture - Final No growth in 5 days. 09/02/23 02:05 Blood Culture (Wb) - Anticubital Left Blood Culture - Final No growth in 5 days. 09/02/23 00:02 Urine, Clean Catch Urine Culture - Final Mixed Gram Positive Organisms 09/02/23 02:28 Mucosa - Nose SARS-CoV-2, Influenza & RSV (PCR) - Final D/C Instructions Discharge Diet: 8 Cup Fluid Restriction and 2000 mg Sodium Diet Discharge Activity: Return to Normal Activity Call your doctor if you observe: Fever of 101 or Higher, Shortness of breath, Fainting spells and Chest pain Meaningful Use Info Meaningful Use Diagnoses (Choose all that apply): CHF CHF SUNSHINE/ARB ordered at discharge?: Yes Documented LVEF (%): 65 Discharge Plan Admission Admit Date/Time: 09/02/23 03:46 Attending Provider: Remy Grimaldo Primary Care Provider: Anthony Vang Consulting Providers: Remy Linares; Gurwinder Sotomayor; Sedrick Barnes; Mahin Garcia; Juan Still; Vero Posey; Kilo Mena; Bonny Ellis; Gracie Betancourt; Jose Hobbs; Edgardo Vences; Titi Murray; Kavin Fulton; Ritesh Cartwright David; Jerry Devlin; Silvano Luis; Zack Evans; Alfredo Luque; Carlos Esparza; Dhruv Marquez; Sindy Yeh RECREATION PROGRAM SPECIALIST Discharge Orders/Prescriptions Prescriptions: New ipratropium-albuterol 0.5 mg-3 mg(2.5 mg base)/3 mL Solution For Nebulization 3 ml inhalation Q6HWA.RT Qty: 0 0RF pantoprazole 40 mg Tablet,Delayed Release (Dr/Ec) 40 mg PO BID Qty: 0 0RF amoxicillin-pot clavulanate 875-125 mg tablet 1 tab PO BID Qty: 14 0RF potassium chloride 20 mEq tablet extended release 20 meq PO BID Qty: 30 0RF amlodipine 5 mg tablet 5 mg PO DAILY Qty: 30 0RF Continued lisinopril 10 MG tablet 10 mg PO DAILY Patient Comments: Blood pressure Referrals / Follow Up: Anthony Vang MD [Primary Care Provider] - Within 1 Week (To be referred to outpatient oncology for his evaluation of his lymphadenopathy) Disposition Disposition (needs filled in before D/C Order can be placed): [facility] Facility Charges/Coding Visit Charges Inpatient E&M: 54240 Disch Hosp >30min
--- NOTE | 2023-09-09 11:32 | PCM.TXEXTCAR ---
Diet Diet Order/Speech Therapy: 09/02/23 14:17 Diet: Regular - General Food consistency:: Regular Liquid Consistency:: Regular/Thin Is pt able to select menu?: Yes Routine Orders/Code Status Code Status: DNRCC-A Wound(s) left lower leg: Wound Type: cluster of stasis ulcers Dressing Change: Adaptic forehead: Wound Type: healing wound (old skin graft, pt picks) Dressing Change: Adaptic Problem/Diagnosis (1) Duodenitis: Status: Acute Code(s): K29.80 - Duodenitis without bleeding (2) Metabolic encephalopathy: Status: Acute Code(s): G93.41 - Metabolic encephalopathy Plan Patient is a 63-year-old gentleman with history of learning disability, multiple myeloma who presented to the emergency department with abdominal pain nausea and vomiting. History was limited given patient's underlying learning disability. Initial imaging studies obtained with CT of the abdomen demonstrated severe duodenal wall thickening and indistinct pancreatic head. Patient was also found to have elevated WBC count. Admitted for subsequent management 1. Abdominal pain ? Secondary to acute duodenitis; patient managed with PPI consult placed to Dr. Oliver with gastroenterology who did perform EGD on 09/03/2023 which demonstrated - LA Grade B esophagitis with no bleeding. Grade I esophageal varices. No gross lesions in the entire stomach. Acute duodenitis. ? 09/07/2023 patient remains on PPI ? 09/08/2023 no complaints of abdominal pain this morning 2. Leukocytosis ? Secondary to combination of acute cystitis as well as Cellulitis ? 09/07/2023 WBC count remains elevated 3. Acute cystitis ? Managed with Zosyn, urine culture mixed positive organisms. 4. Scalp cellulitis ? Managed with broad-spectrum antibiotic therapy 5. Hypertension - Blood pressure controlled, home medications continued with dose adjustment as needed 6. Acute on chronic congestive heart failure with preserved ejection fraction ? Patient managed with Lasix echo ordered for EF assessment ? Patient responded to that radiotherapy 2D echo obtained demonstrated EF of 65% 7. Extensive lymphadenopathy ?Patient apparently has underlying history of multiple myeloma consult placed to oncology on admission 8. Learning disability ? Patient was apparently living with the father who passed recently. Has a brother who is her legal guardian. Plan is for patient to be discharged to nursing home facility pending placement in a [facility] 9.Class II obesity with BMI of 39 ? Complicating care 10. DVT prophylaxis ? SC Lovenox 11. Acute kidney injury ? Potential nephrotoxic medications including lisinopril discontinued. Also discontinue vancomycin patient started on saline with subsequent monitoring of electrolytes ordered 12. Hypokalemia ? Corrected per protocol repeat labs ordered in a.m. for follow-up 13. Physical deconditioning - Requested for PT OT eval and social worker delinquency prevention to assist with discharge planning. Patient was approved for transfer to nursing home facility by his insurance company Time spent in the patient's overall evaluation,decision-making process, review of diagnostic data, adjustment of management, discussion with other providers, nursing nursing and ancillary staff involved in patient's care documentation, 35 minutes Allergies/Procedures Done in Hospital Allergies No Known Allergies Allergy (Verified 09/02/23 02:22) Type of Care/Length of Stay Estimated LOS: Convalescent Care Less Than 30 days Type of Care Needed: Skilled Rehab Potential: Fair Prognosis: Fair Additional Orders/Day of Discharge Day of Discharge: 09/09/23 Dietary and Speech Recommendations Dietitian Recommendations/Changes: continue regular diet as tolerated Discharge Plan Admission Admit Date/Time: 09/02/23 03:46 Attending Provider: Remy Grimaldo Primary Care Provider: Anthony Vang Consulting Providers: Remy Linares; Gurwinder Sotomayor; Sedrick Barnes; Mahin Garcia; Juan Still; Vero Posey; Kilo Mena; Bonny Ellis; Gracie Betancourt; Jose Hobbs; Edgardo Vences; Titi Murray; Kavin Fulton; Ritesh Cartwright; Remy Mota; Jerry Devlin; Silvano Luis; Zack Evans; Alfredo Luque; Carlos Esparza; Dhruv Marquez; Sindy Yeh SHEET FED PRINTER Discharge Orders/Prescriptions Prescriptions: New ipratropium-albuterol 0.5 mg-3 mg(2.5 mg base)/3 mL Solution For Nebulization 3 ml inhalation Q6HWA.RT Qty: 0 0RF pantoprazole 40 mg Tablet,Delayed Release (Dr/Ec) 40 mg PO BID Qty: 0 0RF amoxicillin-pot clavulanate 875-125 mg tablet 1 tab PO BID Qty: 14 0RF potassium chloride 20 mEq tablet extended release 20 meq PO BID Qty: 30 0RF amlodipine 5 mg tablet 5 mg PO DAILY Qty: 30 0RF Continued lisinopril 10 MG tablet 10 mg PO DAILY Patient Comments: Blood pressure Referrals / Follow Up: Anthony Vang MD [Primary Care Provider] - Within 1 Week (To be referred to outpatient oncology for his evaluation of his lymphadenopathy) Disposition Disposition (needs filled in before D/C Order can be placed): Senior Care Facility
[2023-09-09 12:50] VITALS: PULSE 76; RESP 20; O2SAT 96
[2023-09-09 14:29] VITALS: BP 151/81; PULSE 84; RESP 16; TEMP 36.9; O2SAT 98
[2023-09-09 17:00] VITALS: BP 171/88; PULSE 80; RESP 16; TEMP 36.9; O2SAT 97
--- NOTE | 2023-09-09 17:33 | NURSING ---
Report called to brittany at [facility]
== END 2023-09-09 18:00 | disposition skilled nursing facility (03) | DRG 391 ==
LOC: ED 09-02 02:10 → ICU 09-02 02:45 → PCU 09-05 14:31
PROVIDERS: Family Medicine; Internal Medicine; Internal Medicine Critical Care Medicine; Internal Medicine Gastroenterology; Admitting Provider Internal Medicine; Emergency Provider Emergency Medicine; PCP Family Medicine; Visit Provider Internal Medicine
PROC: 0DJ08ZZ Inspection of Upper Intestinal Tract, Via Natural or Artificial Opening Endoscopic (ICD-10-PCS; CPT 43235; principal; 2023-09-03 12:25)
DX: K29.80 Duodenitis without bleeding (principal); I50.33 Acute on chronic diastolic (congestive) heart failure; G93.41 Metabolic encephalopathy; I85.00 Esophageal varices without bleeding; D47.9 Neoplasm of uncertain behavior of lymphoid, hematopoietic and related tissue, unspecified; N17.9 Acute kidney failure, unspecified; L03.811 Cellulitis of head [any part, except face]; Z68.41 Body mass index [BMI] 40.0-44.9, adult; N30.01 Acute cystitis with hematuria; E11.65 Type 2 diabetes mellitus with hyperglycemia; I11.0 Hypertensive heart disease with heart failure; K29.70 Gastritis, unspecified, without bleeding; I87.2 Venous insufficiency (chronic) (peripheral); K20.90 Esophagitis, unspecified without bleeding; E87.6 Hypokalemia; R59.1 Generalized enlarged lymph nodes; R09.02 Hypoxemia; E66.9 Obesity, unspecified; Z66 Do not resuscitate; F70 Mild intellectual disabilities; Z91.199 Patient's noncompliance with other medical treatment and regimen due to unspecified reason; Z68.39 Body mass index [BMI] 39.0-39.9, adult; Z79.899 Other long term (current) drug therapy
CPT/HCPCS: 36415; 36600; 70450; 71045; 74177; 80048; 80053; 80202; 81001; 82803; 82962; 83605; 83690; 83735; 84100; 85025; 87040; 87086; 87088; 87631; 88305; 92526; 92610; 93306; 94640; 94660; 97110; 97116; 97162; 97166; 97530; 97535; 97803; 99283; J7030; J7040; J7050; A4216; J1940; J2405

== ENCOUNTER 2023-11-25 09:30 | Outpatient (RCR) | payer MEDICARE, MEDICAID, SELFPAY ==
[2023-11-18 10:40] VITALS: BP 119/51; PULSE 76; RESP 18; TEMP 36.6; BMI 32.5
--- NOTE | 2023-11-18 11:30 | HP.PCM_ITS ---
History of Present Illness Date of Service: 11/18/23 Chief Complaint: Right Lower Extremity Ulcer History of Wound: Mr. Alonso is a 63 yo last seen here in 2019 who presents due to non healing right lower extremity ulcer. History of intellectual disability and currently resides in a senior living. Per his direct care provider, prior to the senior living, had been at a nursing facility. History of recurrent bilateral lower extremity ulceration and venous insufficiency. Caregiver states that he has resided at this senior living for a month and has had ulcer for that period. Exact etiology/onset is unknown. Was seen by his PCP Dr. Vang at the [facility] who prescribed an antibiotic and Kenolog cream which have not helped. Sleeps in a chair/recliner and refuses to sleep in bed. No tobacco abuse or history of diabetes mellitus. Per recent hospital documentation, history of multiple myeloma. Feels well otherwise at this time. His caregiver states that his appetite is very good. No chills, fever or change in bowel movement reported. [facility] Medical History (Updated 11/18/23 @ 12:[address] Fiorella Keating MD) Stasis dermatitis of both legs Ulcer of right lower extremity with fat layer exposed Intellectual disability Melanoma HTN (hypertension) Cellulitis of both lower extremities Edema of both legs Noncompliance Ulcer of left lower leg Home Medications ?Medication ?Instructions ?Recorded ?Last Taken ?Type lisinopril 10 mg tablet 10 mg PO DAILY BP 12/15/16 10/08/21 History amlodipine 5 mg tablet 5 mg PO DAILY #30 tabs 09/09/23 Unknown Rx pantoprazole 40 mg tablet,delayed 40 mg PO BID #0 tabs 09/09/23 Unknown Rx release potassium chloride 20 mEq 20 meq PO BID #30 tabs 09/09/23 Unknown Rx tablet,extended release furosemide 40 mg tablet (Lasix) 40 mg PO DAILY 11/18/23 Unknown History multivitamin 1 tab PO DAILY 11/18/23 Unknown History triamcinolone acetonide 0.1 % applic topical 11/18/23 Unknown History topical cream Allergy/AdvReac Type Severity Reaction Status Date / Time No Known Allergies Allergy Verified 09/02/23 02:22 Surgical History History of skin graft H/O melanoma excision Social History Smoking Status: Never smoker ROS Constitutional Constitutional: Denies anorexia, chills, difficulty sleeping, excessive sweating, fatigue, fever(s), malaise, night sweats or weakness Eyes Eyes: Denies burning, change in vision, decreased night vision, discharge from eye(s) or double vision ENT HEENT: Denies bleeding gums, change in voice, dizziness, dysphagia, headache(s), mouth pain or nasal congestion Cardiovascular Cardiovascular: Denies chest pain, cold extremities, cyanosis, diaphoresis, dizziness, lightheadedness, orthopnea, palpitations or syncope Respiratory/Chest Respiratory/Chest: Denies chest congestion, cough, difficulty clearing secretions, dyspnea, hemoptysis, hoarseness or shortness of breath at rest Gastrointestinal Gastrointestinal: Denies abdominal pain, anorexia, constipation, diarrhea, excessive flatus or hematemesis Genitourinary Genitourinary: Denies abdominal discomfort, burning urination, difficulty urinating or flank pain Musculoskeletal Musculoskeletal: Denies extremity pain, loss of height, muscle cramps, tingling or tremors Integumentary Integumentary: Denies bleeding lesions, change in pigmentation, hirsutism, jaundice, pruritus or skin swelling Neurologic Neurologic: Denies abnormal hearing, behavior changes, burning sensations, confusion, loss of vision or tremor(s) Psychiatric Psychiatric: Denies anxiety, behavioral changes, change in appetite, irritability, tactile hallucinations or visual hallucinations Endocrine Endocrinology: Denies cold intolerance, deepening of the voice, excessive sweating, flushing, heat intolerance or increase in ring/shoe/hat size Hematologic/Lymphatic Hematologic/Lymphatic: Denies easy bleeding Allergic/Immunologic Allergic/Immunologic: Denies itchy eyes, lip swelling, rhinitis, throat swelling, tongue swelling or wheezing Vital Signs Vital Signs Vital Signs: 11/18/23 10:40 Temperature 98 F Temperature Source Temporal Pulse Rate 76 Respiratory Rate 18 Blood Pressure 119/51 L Blood Pressure Mean 73 Blood Pressure Source Monitor Blood Pressure Position Semi-Fowlers Blood Pressure Location Left Arm Weight Weight: 233 lb Body Mass Index (BMI) 32.5 Physical Exam Const alert and no apparent distress General Appearance: cooperative and comfortable HEENT normocephalic, head/scalp atraumatic and hearing grossly normal bilaterally Eyes EOMs intact bilaterally Neck full ROM and supple General: normal visual inspection Resp normal respiratory effort and normal air movement Effort and Inspection: able to speak in complete sentences Cardio regular rate, regular rhythm, S1 normal heart sound and S2 normal heart sound GI soft to palpation and non-tender Extremity General Extremity: edema Skin Wounds: wounds noted bed pink, no odor, open and surrounding erythema Neuro moves all extremities and no focal motor deficits Sensorium / Orientation: awake and alert Psych cooperative and affect normal Appearance: grossly normal Attitude: calm Activity / Motor Behavior: appropriate eye contact Debridement Note Debridement Note Wound debrided: Right lower extremity Type of Debridement: Excisional debridement Anesthesia Used: 4% Lidocaine Solution Depth: Down to and including healthy tissue and in the subcutaneous layer Percentage of wound debrided: 100 Instrument Used: 5mm curette Tissue Removed: Slough and devitalized tissue Severity: Fat Layer Exposed Amount of bleeding with debridement: Mild Bleeding Controlled with: Pressure Patient tolerated procedure: Patient tolerated procedure well Post-Debridement Measurements and Additional Note: Post-Debridement Measurements/Treatment JESUS - Nurse 1 - General Ulcer Assessment Start: 11/18/23 10:40 Freq: Status: Active Protocol: TAVO Activity Type Activity Date Activity User E-sign Co-sign Detail Recorded Client Recorded Date Recorded By Document 11/18/23 10:40 JOSESITO [email or web address] 11/18/23 10:49 JOSESITO 11/18/23 10:40 - Today's Visit Information Type of service Initial Visit Arrival Mode Ambulatory Transfer Assistance None Patient Identification Verified (Name & Yes ) Patient Requires Transmission-Based No Precautions Height and Weight Height 5 ft 11 in Weight 233 lb Weight in Pounds 233.0 lbs Body Mass Index (BMI) 32.5 BMI Classification Obese BSA - Jude 2.25 Vital Signs Temperature (97.8 F-99.1 F) 98 F Temperature Source Temporal Pulse Rate (60-100) 76 Pulse Location Monitor Respiratory Rate (12-18) 18 Respiratory rate source Observation Blood Pressure (90/60-120/80) 119/51 L Blood Pressure Mean 73 Source Monitor Position Semi-Fowlers Blood Pressure Location Left Arm History Since Last Visit- (Skip if this is Patient's initial visit) Have you changed medications since your No last visit? Any new allergies or adverse reactions No Had a fall/change in ADL's that may No increase risk of falls Signs or symptoms of abuse and/or No neglect since last visit Have you been in the hospital since your No last visit? Has dressing in place as prescribed Yes Has compression in place as prescribed Yes Has offloadiing in place as prescribed No Experienced any changes in pain level or No management Pain Scale: 0-10 Numeric Is Patient Pain Free? Yes Lower Extremity Assessment/ Foot Assessment/ Toe Nail Assessment Right -Posterior Tibial Palpable Yes -Posterior Tibial Doppler Multiphasic -Dorsalis Pedis Palpable Yes -Dorsalis Pedis Doppler Multiphasic -Extremity Color Normal -Hair Growth on Legs Yes -Hair Growth on Toes No -Temperature of Extremity Cool -Capillary Refill Less than 3 Seconds -Dependent Rubor No -Blanched when Elevated No -Lipodermatosclerosis No -Other Deformity No -Prior Foot Ulcer No -Charcot Joint No -Prior Amputation No -Thick Yes -Discolored Yes -Deformed Yes -Improper Length & Hygeine Yes Left -Posterior Tibial Palpable Yes -Posterior Tibial Doppler Multiphasic -Dorsalis Pedis Palpable Yes -Dorsalis Pedis Doppler Multiphasic -Extremity Color Normal -Hair Growth on Legs Yes -Hair Growth on Toes No -Temperature of Extremity Cool -Capillary Refill Less than 3 Seconds -Dependent Rubor No -Blanched when Elevated No -Lipodermatosclerosis No -Other Deformity No -Prior Foot Ulcer No -Charcot Joint No -Prior Amputation No -Thick Yes -Discolored Yes -Deformed Yes -Improper Length & Hygeine Yes Neuropathy Assessment Feet - Top Side and Bottom <Entered> (a) Communication Assessment Preferred language Martiniquais [employer] Required No Able to Read No Able to Write No Communication Tools None Caregiver Communication Skills Unable To Read, Impairment Unable To Write Right Hearing Abillity Normal Left Hearing Abillity Normal Visual Assistive Devices Glasses Teaching Assessment Preferences Verbal, Demonstration Barriers to Learning None Readiness To Learn Fair Willingness to Engage in Self Management Low Activies Readiness to Engage in Self Management Low Activities Anxiety Level Calm Cooperation Cooperative Perception Coherent Interest in Health Problem Uninterested Education Importance Denies Need Does Patient Smoke tobacco or other No substances Smoking Status Never smoker Is Patient Diabetic No Functional Assessment Recent Decline in Ability to Perform Bathing Assistive Device With Patient No Culture/Cheondoism/Label Stitcher Cultural/Cheondoism Needs that may affect No Treatment Plan Would you allow our hospital assistant director of admissions to No meet you for the purpose of spiritual/ emotional support? Label Stitcher to contact place of oriental orthodox No Teaching: Wound Center *Welcome to the Wound Center -Person Taught Patient -Teaching Method Demonstration -Response to teaching Return demonstration (a) 1 - + throughout - Nurse 1 - General Ulcer Measurement Start: 11/18/23 10:40 Freq: Status: Active Protocol: Activity Type Activity Date Activity User E-sign Co-sign Detail Recorded Client Recorded Date Recorded By Document 11/18/23 10:40 RB [email or web address] 11/18/23 10:49 RB 11/18/23 10:40 Wound Center Nurse 1 14. RLE -Combined with other wound No -Current Size (cm) - Length 2 -Current Size (cm) - Width 0.7 -Current Size (cm) - Depth 0.1 -Total Square Cm 1.4 -Photo Taken Yes -Tunneling No -Undermining/Tunneling No -Circular Undermining No -Exudate Amt Medium -Exudate Type Serosanguineous -Wound Margin Distinct, Outline Attached -Granulation Amt Medium (34-66%) -Granulation Quality [place] -Slough/Fibrin Yes -Necrosis Amt Medium (34-66%) -Necrotic Tissue Type Adherent Slough -Structure Exposed N/A -Texture (Kathleen-wound Skin Appearance) Assessed -Moisture (Kathleen-wound Skin Appearance) Assessed -Color (Kathleen-wound Skin Appearance) Assessed -Temperature (Kathleen-wound Skin No Abnormality Appearance) (Pt Warm) -Tenderness on Palpation (Kathleen-wound No Skin Appearance) -Ulcer Cleansing Wound Cleanser -Foul Odor after Cleansing No -Anesthetic Used 5% Lidocaine Gel Lower Limb Edema Present Yes Right Calf (cm) 39 Right Ankle (cm) 24 Left Calf (cm) 41 Left Ankle (cm) 23.2 - Nurse 2 - General Ulcer CM Notes Start: 11/18/23 10:40 Freq: Status: Active Protocol: Activity Type Activity Date Activity User E-sign Co-sign Detail Recorded Client Recorded Date Recorded By Document 11/18/23 11:04 [facility] 11/18/23 11:07 11/18/23 11:04 Wound Center Nurse 2 14. RLE -Time 11:05 -Correct Patient Yes -Correct Side, Site, Position Yes -Correct Procedure Yes -Procedure Performed Yes -Type of Procedure Debridement -Clinical Debridement Subcutaneous -Tissue Removed Subcutaneous -Post Debridement (cm) - Length 2.7 -Post Debridement (cm) - Width 0.8 -Post Debridement (cm) - Depth 0.1 -Total Square (Post) (cm) 2.16 -Area of Debridement (cm) - Length 2.7 -Area of Debridement (cm) - Width 0.8 -Total Square (Area) (cm) 2.16 -Tunneling No -Undermining/Tunneling No -Circular Undermining No -Wound/Ulcer Outcome Not Healed -Ulcer Cleansing Rinsed/ Irrigated with Saline -Foul Odor after Cleansing No -Bioengineered Tissue No -Bleeding Controlled with Pressure -Treatment Response Procedure Tolerated Well -Debridement - Subq, 1st 20sq cm Yes Pain Scale: 0-10 Numeric Is Patient Pain Free? Yes - Nurse 3 - General Ulcer D/C NN Start: 11/18/23 10:40 Freq: Status: Active Protocol: Activity Type Activity Date Activity User E-sign Co-sign Detail Recorded Client Recorded Date Recorded By Document 11/18/23 11:17 KW g 11/18/23 11:17 KW 11/18/23 11:17 Wound Care Center Nurse 3 14. RLE -Primary Dressing Applied NonAdherent Contact Layer, Promogran -Primary Dressing Covered/Secured with Dry Gauze & Roll Gauze, Secured with Tape -Promogran 1 Right -Tubular Bandage Double Layer -Size of Tubigrip Used Size E -Size E ($) 2 Left -Tubular Bandage Double Layer -Size of Tubigrip Used Size E -Size E ($) 2 Pain Scale: 0-10 Numeric Is Patient Pain Free? Yes - Visit Discharge Discharge Condition Stable Ambulatory Status Ambulatory Transportation Private Auto Medication Reconcilliation completed & No provided to patient/care provider Clinical Summary of Care Provided Yes Charges/Coding Visit Charges Office Visits / Consults: 62712 OV L3 Est 20min Procedures Integumentary [id number]: [id number] Rosy subq tissue 20 sq cm/< Assessment/Plan Assessment/Plan (1) Ulcer of right lower extremity with fat layer exposed: CODE(S): L97.912 - Non-pressure chronic ulcer of unspecified part of right lower leg with fat layer exposed (2) Venous insufficiency of both lower extremities: CODE(S): I87.2 - Venous insufficiency (chronic) (peripheral) (3) Stasis dermatitis of both legs: CODE(S): I87.2 - Venous insufficiency (chronic) (peripheral) (4) Intellectual disability: CODE(S): F79 - Unspecified intellectual disabilities PLAN: Plan Debridement done as documented above, procedure was well-tolerated. No clinical concern for infection at this time. Also recently had labs done at the [facility]. Will hold off culture. Promogran daily, cover with Adaptic and gauze. Double layer Tubigrip for edema management for now. Prescription given for compression stockings at 20 to 30 mmHg. Consistent use of compression recommended, as above, patient sleeps in a recliner/chair and refuses to sleep in the bed. Discussed with caregiver, as much as feasible, ensure leg elevation, compliance with compression and exercise as tolerated. Continue optimal nutrition,focusing as well on increased protein intake. Caregiver and patient were advised to let us know if they have any further questions or concerns. Follow-up in a week or sooner if needed. This note was generated with [employer] dictation software. It may contain incorrect words, spelling, and punctuation that were not noted in checking the note before signing.
[2023-11-25 09:47] VITALS: BP 100/67; PULSE 79; RESP 18; TEMP 36.6; BMI 32.5
--- NOTE | 2023-11-25 10:19 | PN.PCM_ITS ---
History of Present Illness Date of Service: 11/25/23 Chief Complaint: Right Lower Extremity Ulcer History of Wound: Mr. Alonso is a 63 yo last seen here in 2019 who presents due to non healing right lower extremity ulcer. History of intellectual disability and currently resides in a senior care. Per his point of care specialist, prior to the senior care, had been at a nursing facility. History of recurrent bilateral lower extremity ulceration and venous insufficiency. Caregiver states that he has resided at this senior care for a month and has had ulcer for that period. Exact etiology/onset is unknown. Was seen by his PCP Dr. Vang at the [facility] who prescribed an antibiotic and Kenolog cream which have not helped. Sleeps in a chair/recliner and refuses to sleep in bed. No tobacco abuse or history of diabetes mellitus. Per recent hospital documentation, history of multiple myeloma. Feels well otherwise at this time. His caregiver states that his appetite is very good. No chills, fever or change in bowel movement reported. Progress of Wound: No acute concerns reported at this time. Here with his caregiver. She states that they have been doing dressing changes as recommended. Yet to get the compression stockings, has been using Tubigrip's for compression. Objective Data Objective Data Vital Signs: Vital Signs Temp Pulse Resp BP O2 Del Method 98 F 79 18 100/67 Room Air 11/25/23 09:47 11/25/23 09:47 11/25/23 09:47 11/25/23 09:47 11/25/23 09:47 Oxygen Delivery Method Room Air Weight: 233 lb Body Mass Index (BMI) 32.5 Charges/Coding Procedures Integumentary 111xxx-113xx: [id number] Rosy subq tissue 20 sq cm/< Physical Exam Const alert and no apparent distress General Appearance: cooperative and comfortable HEENT normocephalic, head/scalp atraumatic and hearing grossly normal bilaterally Eyes EOMs intact bilaterally Neck full ROM and supple General: normal visual inspection Resp normal respiratory effort Effort and Inspection: able to speak in complete sentences Extremity General Extremity: edema Skin Wounds: wounds noted bed granulating well, no odor, open and surrounding erythema Neuro moves all extremities and no focal motor deficits Sensorium / Orientation: awake and alert Psych cooperative and affect normal Appearance: grossly normal Attitude: calm Activity / Motor Behavior: appropriate eye contact Debridement Note Debridement Note Wound debrided: Right lower extremity Type of Debridement: Excisional debridement Anesthesia Used: 4% Lidocaine Solution Depth: Down to and including healthy tissue and in the subcutaneous layer Percentage of wound debrided: 100 Instrument Used: 5mm curette Tissue Removed: Slough and devitalized tissue Severity: Fat Layer Exposed Amount of bleeding with debridement: Mild Bleeding Controlled with: Pressure Patient tolerated procedure: Patient tolerated procedure well Post-Debridement Measurements and Additional Note: Post-Debridement Measurements/Treatment WC - Nurse 1 - General Ulcer Assessment Start: 11/18/23 10:40 Freq: Status: Active Protocol: TAVO Activity Type Activity Date Activity User E-sign Co-sign Detail Recorded Client Recorded Date Recorded By Document 11/18/23 10:40 RB [email or web address] 11/18/23 10:49 RB Document 11/25/23 09:47 MT [id number] 11/25/23 09:54 MT 11/18/23 11/25/23 10:40 09:47 - Today's Visit Information Type of service Initial Visit Follow-up Visit (Physician/GRINDER SET UP OPERATOR THREAD ) Arrival Mode Ambulatory Ambulatory Transfer Assistance None Accompanied by VENTURA Patient Identification Verified (Name & Yes Yes ) Patient Requires Transmission-Based No Precautions Safety Precautions Fall Prevention Height and Weight Height 5 ft 11 in Weight 233 lb Weight in Pounds 233.0 lbs Body Mass Index (BMI) 32.5 32.5 BMI Classification Obese Obese BSA - Jude 2.25 Vital Signs Temperature (97.8 F-99.1 F) 98 F 98 F Temperature Source Temporal Temporal Pulse Rate (60-100) 76 79 Pulse Location Monitor Monitor Respiratory Rate (12-18) 18 18 Respiratory rate source Observation Observation Oxygen Delivery Method Room Air Blood Pressure (90/60-120/80) 119/51 L 100/67 Blood Pressure Mean (mm Hg) 73 78 Source Monitor Monitor Position Semi-Fowlers Sitting Blood Pressure Location Left Arm Left Arm History Since Last Visit- (Skip if this is Patient's initial visit) Have you changed medications since your No last visit? Any new allergies or adverse reactions No Had a fall/change in ADL's that may No increase risk of falls Signs or symptoms of abuse and/or No neglect since last visit Have you been in the hospital since your No last visit? Has dressing in place as prescribed Yes No Has compression in place as prescribed Yes N/A Has offloadiing in place as prescribed No N/A Experienced any changes in pain level or No No management Left Footwear Regular Shoe Right Footwear Regular Shoe Pain Scale: 0-10 Numeric Is Patient Pain Free? Yes No Lower Extremity Assessment/ Foot Assessment/ Toe Nail Assessment Right -Posterior Tibial Palpable Yes -Posterior Tibial Doppler Multiphasic -Dorsalis Pedis Palpable Yes -Dorsalis Pedis Doppler Multiphasic -Extremity Color Normal -Hair Growth on Legs Yes -Hair Growth on Toes No -Temperature of Extremity Cool -Capillary Refill Less than 3 Seconds -Dependent Rubor No -Blanched when Elevated No -Lipodermatosclerosis No -Other Deformity No -Prior Foot Ulcer No -Charcot Joint No -Prior Amputation No -Thick Yes -Discolored Yes -Deformed Yes -Improper Length & Hygeine Yes Left -Posterior Tibial Palpable Yes -Posterior Tibial Doppler Multiphasic -Dorsalis Pedis Palpable Yes -Dorsalis Pedis Doppler Multiphasic -Extremity Color Normal -Hair Growth on Legs Yes -Hair Growth on Toes No -Temperature of Extremity Cool -Capillary Refill Less than 3 Seconds -Dependent Rubor No -Blanched when Elevated No -Lipodermatosclerosis No -Other Deformity No -Prior Foot Ulcer No -Charcot Joint No -Prior Amputation No -Thick Yes -Discolored Yes -Deformed Yes -Improper Length & Hygeine Yes Neuropathy Assessment Feet - Top Side and Bottom <Entered> (a) Communication Assessment Preferred language Urdu Mail Room Required No Able to Read No Able to Write No Communication Tools None Caregiver Communication Skills Unable To Read, Impairment Unable To Write Right Hearing Abillity Normal Left Hearing Abillity Normal Visual Assistive Devices Glasses Teaching Assessment Preferences Verbal, Demonstration Barriers to Learning None Readiness To Learn Fair Willingness to Engage in Self Management Low Activies Readiness to Engage in Self Management Low Activities Anxiety Level Calm Cooperation Cooperative Perception Coherent Interest in Health Problem Uninterested Education Importance Denies Need Does Patient Smoke tobacco or other No substances Smoking Status Never smoker Is Patient Diabetic No Functional Assessment Recent Decline in Ability to Perform Bathing Assistive Device With Patient No Culture/Adventist/[facility] Cultural/Adventist Needs that may affect No Treatment Plan Would you allow our hospital infant nanny to No meet you for the purpose of spiritual/ emotional support? [facility] to contact place of holiness No Teaching: Wound Center *Welcome to the Wound Center -Person Taught Patient -Teaching Method Demonstration -Response to teaching Return demonstration (a) 1 - + throughout - Nurse 1 - General Ulcer Measurement Start: 11/18/23 10:40 Freq: Status: Active Protocol: Activity Type Activity Date Activity User E-sign Co-sign Detail Recorded Client Recorded Date Recorded By Document 11/18/23 10:40 RB [email or web address] 11/18/23 10:49 RB Document 11/25/23 09:47 MT [id number] 11/25/23 09:54 CT 11/18/23 11/25/23 10:40 09:47 Wound Center Nurse 1 14. RLE -Combined with other wound No -Current Size (cm) - Length 2 2.0 -Current Size (cm) - Width 0.7 0.5 -Current Size (cm) - Depth 0.1 0.1 -Total Square Cm 1.4 1.00 -Photo Taken Yes -Tunneling No No -Undermining/Tunneling No No -Circular Undermining No No -Exudate Amt Medium Small -Exudate Type Serosanguineous Serosanguineous -Wound Margin Distinct, Flat & Intact Outline Attached -Granulation Amt Medium (34-66%) Large (67-100%) -Granulation Quality Hytop Pale,Hytop -Slough/Fibrin Yes No -Necrosis Amt Medium (34-66%) -Necrotic Tissue Type Adherent Slough -Structure Exposed N/A -Texture (Kathleen-wound Skin Appearance) Assessed Assessed -Moisture (Kathleen-wound Skin Appearance) Assessed Assessed -Color (Kathleen-wound Skin Appearance) Assessed Assessed -Temperature (Kathleen-wound Skin No Abnormality No Abnormality Appearance) (Pt Warm) (Pt Warm) -Tenderness on Palpation (Kathleen-wound No No Skin Appearance) -Ulcer Cleansing Wound Cleanser Soap and Water -Foul Odor after Cleansing No No -Anesthetic Used 5% Lidocaine 5% Lidocaine Gel Gel Lower Limb Edema Present Yes Right Calf (cm) 39 38 Right Ankle (cm) 24 23.5 Left Calf (cm) 41 Left Ankle (cm) 23.2 - Nurse 2 - General Ulcer CM Notes Start: 11/18/23 10:40 Freq: Status: Active Protocol: Activity Type Activity Date Activity User E-sign Co-sign Detail Recorded Client Recorded Date Recorded By Document 11/18/23 11:04 GM 11/18/23 11:07 Document 11/25/23 10:04 [facility] 11/25/23 10:08 11/18/23 11/25/23 11:04 10:04 Wound Center Nurse 2 14. RLE -Time 11:05 10:04 -Correct Patient Yes Yes -Correct Side, Site, Position Yes Yes -Correct Procedure Yes Yes -Procedure Performed Yes Yes -Type of Procedure Debridement Debridement -Clinical Debridement Subcutaneous Subcutaneous -Tissue Removed Subcutaneous Subcutaneous -Post Debridement (cm) - Length 2.7 1.5 -Post Debridement (cm) - Width 0.8 0.7 -Post Debridement (cm) - Depth 0.1 0.1 -Total Square (Post) (cm) 2.16 1.05 -Area of Debridement (cm) - Length 2.7 1.5 -Area of Debridement (cm) - Width 0.8 0.7 -Total Square (Area) (cm) 2.16 1.05 -Tunneling No No -Undermining/Tunneling No No -Circular Undermining No No -Wound/Ulcer Outcome Not Healed Not Healed -Ulcer Cleansing Rinsed/ Rinsed/ Irrigated with Irrigated with Saline Saline -Foul Odor after Cleansing No No -Bioengineered Tissue No No -Bleeding Controlled with Pressure Pressure -Treatment Response Procedure Procedure Tolerated Well Tolerated Well -Debridement - Subq, 1st 20sq cm Yes Yes Pain Scale: 0-10 Numeric Is Patient Pain Free? Yes Yes - Nurse 3 - General Ulcer D/C NN Start: 11/18/23 10:40 Freq: Status: Active Protocol: Activity Type Activity Date Activity User E-sign Co-sign Detail Recorded Client Recorded Date Recorded By Document 11/18/23 11:17 KW 11/18/23 11:17 11/18/23 11:17 Wound Care Center Nurse 3 14. RLE -Primary Dressing Applied NonAdherent Contact Layer, Promogran -Primary Dressing Covered/Secured with Dry Gauze & Roll Gauze, Secured with Tape -Promogran 1 Right -Tubular Bandage Double Layer -Size of Tubigrip Used Size E -Size E ($) 2 Left -Tubular Bandage Double Layer -Size of Tubigrip Used Size E -Size E ($) 2 Pain Scale: 0-10 Numeric Is Patient Pain Free? Yes - Visit Discharge Discharge Condition Stable Ambulatory Status Ambulatory Transportation Private Auto Medication Reconcilliation completed & No provided to patient/care provider Clinical Summary of Care Provided Yes Assessment/Plan Assessment/Plan (1) Ulcer of right lower extremity with fat layer exposed: CODE(S): L97.912 - Non-pressure chronic ulcer of unspecified part of right lower leg with fat layer exposed (2) Venous insufficiency of both lower extremities: CODE(S): I87.2 - Venous insufficiency (chronic) (peripheral) (3) Stasis dermatitis of both legs: CODE(S): I87.2 - Venous insufficiency (chronic) (peripheral) (4) Intellectual disability: CODE(S): F79 - Unspecified intellectual disabilities PLAN: Plan Debridement done as documented above, procedure was well-tolerated. Improving. Continue Promogran daily, cover with Adaptic and gauze. Double layer Tubigrip for edema management for now. Discussed with his caregivers to get the compression stockings ordered at last visit, she states that she will start the process today. Consistent use of compression recommended. Continue to ensure leg elevation, compliance with compression and exercise as tolerated. Continue optimal nutrition,focusing as well on increased protein intake. Follow-up in 3 weeks or sooner if needed. This note was generated with [employer] dictation software. It may contain incorrect words, spelling, and punctuation that were not noted in checking the note before signing.
== END 2023-12-05 23:59 | disposition home or self-care (01) ==
LOC: WC 09:30
PROVIDERS: PCP Family Medicine; Referring Provider Nurse Practitioner Primary Care; Visit Provider Internal Medicine
DX: I87.2 Venous insufficiency (chronic) (peripheral) (principal); L97.912 Non-pressure chronic ulcer of unspecified part of right lower leg with fat layer exposed; F79 Unspecified intellectual disabilities; R60.0 Localized edema; I10 Essential (primary) hypertension
CPT/HCPCS: 11042; 99213; G0463

== ENCOUNTER 2023-12-16 09:17 | Outpatient (RCR) | payer MEDICARE, MEDICAID, SELFPAY ==
[2023-12-06 00:29] VITALS: BP 100/67; PULSE 79; RESP 18; TEMP 36.6; BMI 32.5
[2023-12-16 09:39] VITALS: BP 119/70; PULSE 64; RESP 18; TEMP 36.3; BMI 32.5
--- NOTE | 2023-12-16 10:44 | PN.PCM_ITS ---
History of Present Illness Date of Service: 12/16/23 Chief Complaint: Right Lower Extremity Ulcer History of Wound: Mr. Alonso is a 63 yo last seen here in 2019 who presents due to non healing right lower extremity ulcer. History of intellectual disability and currently resides in a residential. Per his child care attendant school, prior to the residential, had been at a nursing facility. History of recurrent bilateral lower extremity ulceration and venous insufficiency. Caregiver states that he has resided at this residential for a month and has had ulcer for that period. Exact etiology/onset is unknown. Was seen by his PCP Dr. Vang at the [facility] who prescribed an antibiotic and Kenolog cream which have not helped. Sleeps in a chair/recliner and refuses to sleep in bed. No tobacco abuse or history of diabetes mellitus. Per recent hospital documentation, history of multiple myeloma. Feels well otherwise at this time. His caregiver states that his appetite is very good. No chills, fever or change in bowel movement reported. Progress of Wound: Right lower extremity ulcer is healed. Skin tear on the left from picking. Objective Data Objective Data Vital Signs: Vital Signs Temp Pulse Resp BP O2 Del Method 97.3 F L 64 18 119/70 Room Air 12/16/23 09:39 12/16/23 09:39 12/16/23 09:39 12/16/23 09:39 12/16/23 09:39 Oxygen Delivery Method Room Air Weight: 233 lb Body Mass Index (BMI) 32.5 Charges/Coding Visit Charges Office Visits / Consults: 05429 OV L3 Est 20min Physical Exam Const alert and no apparent distress General Appearance: cooperative and comfortable HEENT normocephalic, head/scalp atraumatic and hearing grossly normal bilaterally Eyes EOMs intact bilaterally Neck full ROM and supple General: normal visual inspection Resp normal respiratory effort Effort and Inspection: able to speak in complete sentences Extremity General Extremity: edema Neuro moves all extremities and no focal motor deficits Sensorium / Orientation: awake and alert Psych cooperative and affect normal Appearance: grossly normal Attitude: calm Activity / Motor Behavior: appropriate eye contact Debridement Note Debridement Note Post-Debridement Measurements and Additional Note: Post-Debridement Measurements/Treatment JESUS - Nurse 1 - General Ulcer Assessment Start: 12/16/23 09:39 Freq: Status: Active Protocol: TAVO Activity Type Activity Date Activity User E-sign Co-sign Detail Recorded Client Recorded Date Recorded By Document 12/16/23 09:39 KW ; 12/16/23 09:56 KW 12/16/23 09:39 WC - Today's Visit Information Type of service Follow-up Visit (Physician/HOUSE SITTER ) Arrival Mode Ambulatory Accompanied by SHIPBOARD INTELLIGENCE ANALYST Patient Identification Verified (Name & Yes ) Height and Weight Body Mass Index (BMI) 32.5 BMI Classification Obese Vital Signs Temperature (97.8 F-99.1 F) 97.3 F L Temperature Source Temporal Pulse Rate (60-100) 64 Pulse Location Monitor Respiratory Rate (12-18) 18 Respiratory rate source Observation Oxygen Delivery Method Room Air Blood Pressure (90/60-120/80) 119/70 Blood Pressure Mean (mm Hg) 86 Source Monitor Position Semi-Fowlers Blood Pressure Location Left Arm History Since Last Visit- (Skip if this is Patient's initial visit) Have you changed medications since your No last visit? Any new allergies or adverse reactions No Had a fall/change in ADL's that may No increase risk of falls Signs or symptoms of abuse and/or No neglect since last visit Have you been in the hospital since your No last visit? Has dressing in place as prescribed Yes Has compression in place as prescribed Yes Has offloadiing in place as prescribed N/A Experienced any changes in pain level or No management Left Footwear Regular Shoe Right Footwear Regular Shoe Pain Scale: 0-10 Numeric Is Patient Pain Free? Yes - Nurse 1 - General Ulcer Measurement Start: 12/16/23 09:39 Freq: Status: Active Protocol: Activity Type Activity Date Activity User E-sign Co-sign Detail Recorded Client Recorded Date Recorded By Document 12/16/23 09:39 KW ; 12/16/23 09:56 KW 12/16/23 09:39 Wound Center Nurse 1 #15 LT MED LE -Current Size (cm) - Length 0.1 -Current Size (cm) - Width 0.1 -Current Size (cm) - Depth 0.1 -Total Square Cm 0.01 -Date of Last Picture (Recall this 12/16/23 field) -Exudate Amt None Present -Granulation Amt Small (1-33%) -Granulation Quality Red -Necrosis Amt Large (67-100%) -Necrotic Tissue Type Eschar -Texture (Kathleen-wound Skin Appearance) Assessed -Moisture (Kathleen-wound Skin Appearance) Assessed -Color (Kathleen-wound Skin Appearance) Assessed, Erythema -Temperature (Kathleen-wound Skin No Abnormality Appearance) (Pt Warm) -Tenderness on Palpation (Kathleen-wound No Skin Appearance) -Ulcer Cleansing Rinsed/ Irrigated with Saline -Foul Odor after Cleansing No -Anesthetic Used 5% Lidocaine Gel -Wound Comment(s) SCABBED #14 LT UPPER AGGARWAL -Current Size (cm) - Length 0.1 -Current Size (cm) - Width 0.1 -Current Size (cm) - Depth 0.1 -Total Square Cm 0.01 -Date of Last Picture (Recall this 12/16/23 field) -Exudate Amt None Present -Wound Margin Distinct, Outline Attached -Necrosis Amt Large (67-100%) -Necrotic Tissue Type Eschar -Texture (Kathleen-wound Skin Appearance) Assessed -Moisture (Kathleen-wound Skin Appearance) Assessed -Color (Kathleen-wound Skin Appearance) Assessed, Erythema -Temperature (Kathleen-wound Skin No Abnormality Appearance) (Pt Warm) -Tenderness on Palpation (Kathleen-wound No Skin Appearance) -Ulcer Cleansing Rinsed/ Irrigated with Saline -Foul Odor after Cleansing No -Anesthetic Used 5% Lidocaine Gel -Wound Comment(s) SCABBED 14. RLE -Current Size (cm) - Length 0 -Current Size (cm) - Width 0 -Current Size (cm) - Depth 0 -Total Square Cm 0 -Date of Last Picture (Recall this 12/16/23 field) -Exudate Amt None Present -Wound Comment(s) HEALED Right Calf (cm) 38 Right Ankle (cm) 22.5 Point of Measurement (cm from the distal 39 point) Point of measurement (cm from the medial 22.5 instep) - Nurse 2 - General Ulcer CM Notes Start: 12/16/23 09:39 Freq: Status: Active Protocol: Activity Type Activity Date Activity User E-sign Co-sign Detail Recorded Client Recorded Date Recorded By Document 12/16/23 10:13 [facility] 12/16/23 10:17 12/16/23 10:13 Wound Center Nurse 2 #15 LT MED LE -Time 10:13 -Correct Patient Yes -Correct Side, Site, Position Yes -Wound Comment(s) apply vaseline and gauze #14 LT UPPER AGGARWAL -Time 10:14 -Correct Patient Yes -Correct Side, Site, Position Yes -Wound Comment(s) apply vaseline and gauze 14. RLE -Time 10:14 -Correct Patient Yes -Correct Side, Site, Position Yes -Wound/Ulcer Outcome Healed- Epithelialized Pain Scale: 0-10 Numeric Is Patient Pain Free? Yes WC - Nurse 3 - General Ulcer D/C NN Start: 12/16/23 09:39 Freq: Status: Active Protocol: Activity Type Activity Date Activity User E-sign Co-sign Detail Recorded Client Recorded Date Recorded By Document 12/16/23 10:30 [place] [id number] 12/16/23 10:32 TN 12/16/23 10:30 Wound Care Center Nurse 3 #14 LT UPPER AGGARWAL -Other Dressing VASELINE THAN GUAZE -Primary Dressing Covered/Secured with Dry Gauze & Roll Gauze, Secured with Tape Right -Tubular Bandage Double Layer -Size of Tubigrip Used Size E -Size E ($) 2 Left -Tubular Bandage Double Layer -Size of Tubigrip Used Size E -Size E ($) 2 Pain Scale: 0-10 Numeric Is Patient Pain Free? Yes Assessment/Plan Assessment/Plan (1) Ulcer of right lower extremity with fat layer exposed: CODE(S): L97.912 - Non-pressure chronic ulcer of unspecified part of right lower leg with fat layer exposed (2) Venous insufficiency of both lower extremities: CODE(S): I87.2 - Venous insufficiency (chronic) (peripheral) (3) Stasis dermatitis of both legs: CODE(S): I87.2 - Venous insufficiency (chronic) (peripheral) (4) Intellectual disability: CODE(S): F79 - Unspecified intellectual disabilities PLAN: Plan No debridement completed today. Healed. No new concerns at this time regarding the right lower extremity. Moisturize adequately and consistent use of compression discussed. To the left lower extremity skin tear, apply Vaseline, cover with gauze until totally healed. Consistent use of compression also recommended. Continue optimal nutrition,focusing as well on increased protein intake. Discharge from the wound clinic. This note was generated with [employer] software. It may contain incorrect words, spelling, and punctuation that were not noted in checking the note before signing.
--- NOTE | 2023-12-22 09:23 | WC ---
PHOTO 12/16/23 AMADOU
--- NOTE | 2023-12-22 09:26 | WC ---
PHOTO 12/16/23 LEFT MED LE/LEFT UPPER AGGARWAL
== END 2023-12-23 08:55 | disposition home or self-care (01) ==
LOC: WC 09:17
PROVIDERS: PCP Family Medicine; Referring Provider Nurse Practitioner Primary Care; Visit Provider Internal Medicine
DX: L97.912 Non-pressure chronic ulcer of unspecified part of right lower leg with fat layer exposed (principal); I87.2 Venous insufficiency (chronic) (peripheral); F79 Unspecified intellectual disabilities
CPT/HCPCS: 99213; G0463

== ENCOUNTER 2024-01-28 11:44 | Inpatient (IN) | payer MEDICARE, MEDICAID, SELFPAY ==
[2024-01-28] VITALS (14 sets, daily range): BP systolic 95–140; BP diastolic 58–74; PULSE 78–106; RESP 14–22; TEMP 36.2–37.4; O2SAT 90–98; BMI 30.9
--- NOTE | 2024-01-28 12:24 | EX.ED.DYSGE1 ---
HPI History of Present Illness Chief Complaint: Alt LOC Informant: patient and other (skilled nursing staff member) Onset/Context/Timing Onset: Days Context: Gradual Onset Timing: Continuous Current Severity: Moderate Maximum Severity: Moderate Narrative Narrative: 64-year-old male lives in a [facility] and has a history of hypertension, CHF and chronic lymphocytic leukemia. Was at [facility] on Wednesday was diagnosed with pneumonia discharged to home without admission on Zithromax Z-LISETH. Reportedly patient had a decreased mental status over the last 2 days. No vomiting or diarrhea. He did have a fever on Wednesday. There is been no falls or head trauma. This is not his baseline mental status. He is on no blood thinners. He has had decreased oral intake. Prior similar symptoms: No Recent Illness/Hospitalization: No [facility] Medical History Stasis dermatitis of both legs Ulcer of right lower extremity with fat layer exposed Intellectual disability Melanoma HTN (hypertension) Cellulitis of both lower extremities Edema of both legs Noncompliance Ulcer of left lower leg Home Medications ?Medication ?Instructions ?Recorded ?Last Taken ?Type lisinopril 10 mg tablet 10 mg PO DAILY BP 12/15/16 10/08/21 History amlodipine 5 mg tablet 5 mg PO DAILY #30 tabs 09/09/23 Unknown Rx pantoprazole 40 mg tablet,delayed 40 mg PO BID #0 tabs 09/09/23 Unknown Rx release potassium chloride 20 mEq 20 meq PO BID #30 tabs 09/09/23 Unknown Rx tablet,extended release furosemide 40 mg tablet (Lasix) 40 mg PO DAILY 11/18/23 Unknown History multivitamin 1 tab PO DAILY 11/18/23 Unknown History docusate sodium 100 mg capsule 100 mg PO BID 01/28/24 Unknown History ferrous sulfate 325 mg (65 mg 325 mg PO BID 01/28/24 Unknown History iron) tablet (FeroSul) fluticasone propionate 50 1 spray intranasal DAILY 01/28/24 Unknown History mcg/actuation nasal spray,suspension loratadine 10 mg tablet 10 mg PO DAILY 01/28/24 Unknown History nystatin 100,000 unit/gram topical 1 applic topical BID 01/28/24 Unknown History cream Allergy/AdvReac Type Severity Reaction Status Date / Time No Known Allergies Allergy Verified 01/28/24 11:45 Surgical History History of skin graft H/O melanoma excision Social History Smoking Status: Never smoker ROS ROS ED ROS Narrative Fever. Decreased oral intake. Decreased mental status. Review of systems per [facility] staff. Constitutional Constitutional ED: Reports fever(s) Eyes Eyes: Denies blurry vision ENT ENT ED: Denies ear pain Cardiovascular Cardiovascular: Denies chest pain Respiratory/Chest Respiratory/Chest: Reports cough Gastrointestinal Gastrointestinal: Denies abdominal pain Genitourinary Genitourinary ED: Denies dysuria or hematuria Musculoskeletal Musculoskeletal: Denies arthralgias Integumentary Denies abscess Neurologic Neurologic: Denies headache(s) Psychiatric Psychiatric: Denies anxiety Endocrine Endocrinology: Denies cold intolerance Hematologic/Lymphatic Hematologic/Lymphatic: Reports none Allergic/Immunologic Allergic/Immunologic ED: Denies mouth swelling, tongue swelling or urticaria EXAM Physical Exam Narrative Exam Narrative: 64-year-old male sitting upright in bed. Vital signs stable afebrile. H EENT exam pupils round reactive light. Extra motions are intact. No facial droop. No trauma. Very dry mucous membranes. Neck nontender no JVD. Lungs clear to auscultation bilaterally. Heart regular rhythm no murmur. Abdomen soft nontender. No peritoneal signs. Moving all 4 extremities. Nontender. No deformity. Neurologically his eyes are open he really follows limited commands. He is not given any history. skilled nursing staff said this is not his baseline. Const Vital Signs: 01/28/24 11:45 01/28/24 11:45 01/28/24 12:50 Temperature 97.8 F 97.8 F 97.1 F L Temperature Source Temporal Temporal Temporal Pulse Rate 78 78 92 Respiratory Rate 16 16 20 H Blood Pressure 115/60 115/60 95/66 Blood Pressure Mean 78 78 75 Pulse Ox 98 98 93 Oxygen Delivery Method Room Air Room Air Room Air 01/28/24 13:45 01/28/24 14:00 01/28/24 15:00 Temperature 99.3 F H 99.3 F H Temperature Source Temporal Oral Pulse Rate 94 103 H 100 Respiratory Rate 14 20 H 22 H Blood Pressure 111/63 138/61 H 135/67 H Blood Pressure Mean 79 86 89 Pulse Ox 93 90 90 Oxygen Delivery Method Room Air Room Air Room Air 01/28/24 15:24 Temperature Temperature Source Pulse Rate 106 H Respiratory Rate Blood Pressure Blood Pressure Mean Pulse Ox 93 Oxygen Delivery Method Room Air Positive well nourished and well developed; Negative for cachectic, contractures or unkempt General Appearance ED: well developed and NAD; Negative for unkempt, cachectic, contractures, cyanotic, diaphoretic or pallor Nutritional Appearance: Negative for cachectic HEENT Reports dry mucous membranes Negative for trauma or tenderness Mouth ED: Yes dry mucous membranes Mouth: dry mucous membranes Eyes EOMs intact bilaterally General Eye ED: Negative for pale conjunctiva Neck no lymphadenopathy, supple and no JVD General: Negative for tenderness Lymph Lymphatic: Negative for other Chest Wall inspection of chest normal and palpation of chest normal Chest: Negative for other Resp normal respiratory effort and clear to auscultation bilaterally Effort and Inspection: Negative for retractions Auscultation: Negative for rales, rhonchi, wheezes or diminished lung sounds Cardio regular rate, regular rhythm, S1 normal heart sound, S2 normal heart sound and no murmurs Palpation: Negative for palpable S3 or palpable S4 Rate: Negative for bradycardia or tachycardic Rhythm: Negative for abnormal rhythm GI normal to inspection, nondistended, normoactive bowel sounds, non-tender, non-distended and no masses Inspection: Negative for abdominal distention Auscultation: normoactive bowel sounds Palpation: soft; Negative for tender, guarding or rebound tenderness present Back/Spine no CVA tenderness General Back: Negative for CVA tenderness Cervical Spine: Negative for cervical spine tenderness Thoracic Spine / Upper Back: Negative for thoracic spinal tenderness or paraspinal muscle tenderness Lumbar Spine / Lower Back: Negative for lumbar spinal tenderness Extremity normal to inspection General Extremety ED: Negative for edema or tenderness General Extremity: Negative for edema Neuro No oriented x3 Neuro Narrative: No opens eyes. Follows very limited commands. Not speaking or give me any history. Sensorium / Orientation: alert, orientation impaired and lethargic Motor Exam: general weakness; Negative for strength 5/5 throughout Psych Negative for mental status grossly normal Appearance: Negative for unkempt Mood & Affect: depressed Skin no rashes or lesions noted and no wounds General Skin Exam: Negative for jaundice or pallor Lesions: No lesion noted Rashes: No rashes noted Trauma: Negative for abrasion Wounds: Negative for wounds noted MDM MDM MDM Narrative Medical decision making narrative: 64-year-old male from a [facility] reportedly diagnosed with pneumonia on Wednesday treated with outpatient antibiotics he is progressively done worse with decreased oral intake. Clinically looks dehydrated. Suspect underlying metabolic encephalopathy. We treated with IV fluids. Screening labs will be obtained. Repeat exam at 2:22 PM patient seems more awake. More alert. But he keeps trying to get out of bed. The [facility] staff state that this is not his baseline. I will speak to the hospitalist about admission. Hospitalist admission note patient does have some left parotid swelling that we need initially identified in the siegel. Patient does not have a specific tenderness to his left parotid. We are obtaining a CAT scan. I will discuss with ENT. CAT scan showed a left parotid mass. I can be followed up as an outpatient. History & Record Review Discussion w/independent historian: Patient and Other Additional record(s) reviewed:: Prior inpatient record, Prior outpatient record, Prior ED visit and Prior labs Lab Data Attestation: I reviewed the patient's lab results. Lab results narrative: CBC shows a white count of 40.9 consistent with his history of CLL. And prior white counts. H&H 11.7 and 34.9. Platelets 219. Electrolytes show a sodium 134. Potassium of 5.6. Gap of 8. BUN and creatinine of 27 and 1.42 consistent with dehydration Liver enzymes normal. Labs are consistent with prior labs when compared. UA negative. No white or red cells no nitrites or bacteria. COVID and flu negative. Chest x-ray chronic changes with vascular congestion. ABG shows a pH 7.4 pCO2 of 37 and a pO2 of 57 with a sat of about 90%. Labs: Laboratory Results - last 24 hr 01/28/24 01/28/24 12:40 13:51 WBC 48.9 H* RBC 3.87 L Hgb 11.7 L Hct 34.9 L MCV 90.2 MCH 30.2 MCHC 33.5 RDW Std Deviation 49.5 H RDW Coeff of Heath 15.0 H Plt Count 219 MPV 11.6 Immature Gran % (Auto) 0.700 Neut % (Auto) 10.1 L Lymph % (Auto) 79.8 H [place] % (Auto) 9.2 Eos % (Auto) 0.0 Baso % (Auto) 0.2 Absolute Neuts (auto) 4.9 Absolute Lymphs (auto) 39.06 H Nucleated RBC % 0 Diff Path Review May foll Atypical Lymphocytes 2+ Reactive Lymphocytes 1+ Plt Morphology Comment LARGE Polychromasia RARE Anisocytosis 1+ Sodium 134 L Potassium 5.6 H Chloride 101 Carbon Dioxide 25.0 Anion Gap 8 BUN 27 H Creatinine 1.42 H Est GFR (MDRD) Af Amer 64 Est GFR (MDRD) Non-Af 53 L BUN/Creatinine Ratio 19.0 Glucose 87 Calcium 9.0 Total Bilirubin 0.60 AST 57 H ALT 40 Alkaline Phosphatase 82 Total Protein 7.7 Albumin 3.1 L Globulin 4.6 H Albumin/Globulin Ratio 0.7 L Urine Color Yellow Urine Clarity Clear Urine pH 6.0 Ur Specific [place] 1.010 Urine Protein 15 H Urine Glucose (UA) Normal Urine Ketones 5 H Urine Occult Blood Negative Urine Nitrite Negative Urine Bilirubin Negative Urine Urobilinogen Normal Ur Leukocyte Esterase Negative Urine RBC 0 SEEN Urine WBC 0 SEEN Ur Squamous Epith Cells 0 SEEN Urine Bacteria 0 SEEN Urine Mucus 0 SEEN ABG Data ABG results: ABG 01/28/24 14:36 Specimen Type ART Sample Site L Radial pH 7.41 Bicarbonate Actual 23.4 Total CO2 25 Base Excess -1 O2 Saturation 90 L ABG pCO2 37.0 ABG pO2 57 L Raúl Test Positive O2 Delivery Device Room Air Vent Mode Not entered Radiography Chest X-Ray - ED: 2 View, Read by ED Physician, Heart, Mediastinum, Bony Structures, Chronic Changes and CHF Diagnostic Testing: Clinical Impression(s) from Imaging Studies Chest X-Ray 01/28/24 13:00 IMPRESSION: Mild pulmonary vascular congestion. Electronically Signed: Clifford Umana MD at 13:31 EDT , Chest x-ray, portable, single view shows cardiomegaly. Seen on prior x-rays. Possible mediastinal adenopathy. Vascular congestion. Interpreted both by myself and radiologist. Compared to prior films. Rhythm Strip Rhythm Strip: Sinus Rhythm Rate: 91 Ectopy: None EKG Initial EKG: Attestation: I personally reviewed and interpreted this EKG as follows: Interpretation: Sinus Rhythm and No Acute Injury Pattern Comments: Normal sinus rhythm rate of 91 no acute signs of NH or ischemia. No dysrhythmia. Discharge Plan Dx/Rx/DC Orders Clinical Impression: Hypoxia, Acute dehydration, History of chronic lymphocytic leukemia, CHF (congestive heart failure) Disposition Disposition: Acute Care Hospital [facility]
[2024-01-28] MEDS: 0.9% Normal Saline (1000mL) 1,000 ML 1000 ML IV (12:39)
[2024-01-28 12:58] LABS: Absolute Lymphocyte Count 39.06 X10^3/uL (0.83-4.51); Absolute Neutrophil Count 4.9 X10^3/uL (2.0-7.7); Basophil# 0.11 X10^3/uL; Basophil% 0.2 % (0-1); Eosinophil# 0.01 X10^3/uL; Hematocrit 34.9 % (40-54); Hemoglobin 11.7 g/dL (13.0-16.5); Lymphocyte # 39.06 X10^3/ul (0.83-4.51); Lymphocyte % 79.8 % (19-41); Mean Corp Hgb Conc 33.5 g/dL (32-36); Mean Corpuscular Hgb 30.2 pg (27.0-32.0); Mean Corpuscular Volume 90.2 fL (80-94); Mean Platelet Vol. 11.6 fl (6.2-12.0); Monocyte# 4.49 X10^3/uL; Monocyte% 9.2 % (0-10); NRBC Flagged by Analyzer 0 % (0-5); Neutrophil # 4.92 X10^3/uL (2.7-7.7); Neutrophil % 10.1 % (47-70); POSITIVE COUNT YES; POSITIVE DIFFERENTIAL YES; POSITIVE MORPHOLOGY YES; Platelet Count 219 K/mm3 (150-450); RBC Distribution Width SD 49.5 fl (35.1-43.9); Red Blood Count 3.87 M/mm3 (4.6-6.2); White Blood Count 48.9 K/mm3 (4.4-11.0)
--- NOTE | 2024-01-28 13:00 | RAD_ITS ---
STUDY: X-RAY CHEST REASON FOR EXAM: Male, 64 years old. Altered mental status. TECHNIQUE: Frontal and lateral views of the chest COMPARISON: 09/04/2023 FINDINGS: There are mild congestive changes noted. The lungs are otherwise clear. There are no pleural effusions. There is no pneumothorax. The heart is stable in size. The visualized osseous structures are within normal limits. RAD/Chest PA and Lateral IMPRESSION: Mild pulmonary vascular congestion. Electronically Signed: Clifford Umana MD at 13:31 EDT ,
[2024-01-28 13:10] LABS: Differential Indicated SCAN CRITERIA MET
[2024-01-28 13:20] LABS: ALB/GLOB Ratio 0.7 RATIO (0.9-2.4); AST(SGOT) 57 U/L (15-37); Alanine Aminotransfer ALT/SGPT 40 U/L (16-61); Albumin, Serum 3.1 g/dL (3.2-5.0); Alkaline Phosphatase 82 U/L (45-117); Anion Gap 8 (5-15); BUN 27 mg/dL (7-18); Chloride 101 mmol/L (98-107); Creatinine, Serum 1.42 mg/dL (0.70-1.30); EST Glomerular Filtration Rate 53 mL/min (>60); Est Glom Filt Rate - Afr Amer 64 mL/min (>60); Globulin 4.6 g/dL (2.2-4.2); Glucose 87 mg/dL (74-106); Potassium 5.6 mmol/L (3.5-5.1); Protein, Total 7.7 g/dL (6.4-8.2); Sodium Level 134 mmol/L (136-145)
[2024-01-28 13:46] LABS: Atypical Lymphocyte 2+ %; Reactive Lymphocyte 1+
[2024-01-28 13:47] LABS: Anisocytosis 1+; Platelet Morphology LARGE; Polychromasia RARE
[2024-01-28 13:54] LABS: Bacteria 0 SEEN /hpf (None Seen); Mucous, Urine 0 SEEN /hpf (<or=2+); Red Blood Cells-Urine 0 SEEN /hpf (0-5); Squamous Epithelial Cells - UA 0 SEEN /hpf (0-5); White Blood Cells 0 SEEN /hpf (0-5)
[2024-01-28 13:56] LABS: Color, Urine Yellow (Yellow); Glucose, Dipstick Normal (Normal); Ketone-Dipstick 5 mg/dl (Negative); Leukocyte Esterase-Dipstick Negative /ul (Negative); Nitrite-Dipstick Negative (Negative); Occult Blood-Urine Negative /ul (Negative); Protein-Dipstick 15 mg/dl (Negative); Urine Bilirubin Dipstick Negative (Negative); Urine Clarity Clear (Clear); Urine Urobilinogen Normal (Normal)
[2024-01-28 14:39] LABS: Allen Test Positive; Base Excess -1 mmol/L (-2 to +2); Bicarbonate 23.4 mmol/L (22-26); Blood Gas Specimen Type ART; Mode Not entered; O2 Delivery Device Room Air; PO2 57 mmHG (75-100); SITE L Radial; SO2 90 % (95-99); Total Carbon Dioxide 25 mmol/L; pH 7.41 (7.35-7.45)
--- NOTE | 2024-01-28 15:53 | PCM.HP.STD ---
HPI - General General Date of Admission: 01/28/24 Date of Service: 01/28/24 HPI Narrative LALEY FORTE, is a 64 M who presents [facility] Medical History Stasis dermatitis of both legs Ulcer of right lower extremity with fat layer exposed Intellectual disability Melanoma HTN (hypertension) Cellulitis of both lower extremities Edema of both legs Noncompliance Ulcer of left lower leg Home Medications ?Medication ?Instructions ?Recorded ?Last Taken ?Type lisinopril 10 mg tablet 10 mg PO DAILY BP 12/15/16 10/08/21 History amlodipine 5 mg tablet 5 mg PO DAILY #30 tabs 09/09/23 Unknown Rx pantoprazole 40 mg tablet,delayed 40 mg PO BID #0 tabs 09/09/23 Unknown Rx release potassium chloride 20 mEq 20 meq PO BID #30 tabs 09/09/23 Unknown Rx tablet,extended release furosemide 40 mg tablet (Lasix) 40 mg PO DAILY 11/18/23 Unknown History multivitamin 1 tab PO DAILY 11/18/23 Unknown History docusate sodium 100 mg capsule 100 mg PO BID 01/28/24 Unknown History ferrous sulfate 325 mg (65 mg 325 mg PO BID 01/28/24 Unknown History iron) tablet (FeroSul) fluticasone propionate 50 1 spray intranasal DAILY 01/28/24 Unknown History mcg/actuation nasal spray,suspension loratadine 10 mg tablet 10 mg PO DAILY 01/28/24 Unknown History nystatin 100,000 unit/gram topical 1 applic topical BID 01/28/24 Unknown History cream Allergy/AdvReac Type Severity Reaction Status Date / Time No Known Allergies Allergy Verified 01/28/24 11:45 Surgical History History of skin graft H/O melanoma excision Social History Smoking Status: Never smoker Vital Signs Vital Signs Vital Signs: 01/28/24 11:45 01/28/24 11:45 01/28/24 12:50 Temperature 97.8 F 97.8 F 97.1 F L Temperature Source Temporal Temporal Temporal Pulse Rate 78 78 92 Respiratory Rate 16 16 20 H Blood Pressure 115/60 115/60 95/66 Blood Pressure Mean 78 78 75 Pulse Ox 98 98 93 Oxygen Delivery Method Room Air Room Air Room Air 01/28/24 13:45 01/28/24 14:00 01/28/24 15:00 Temperature 99.3 F H 99.3 F H Temperature Source Temporal Oral Pulse Rate 94 103 H 100 Respiratory Rate 14 20 H 22 H Blood Pressure 111/63 138/61 H 135/67 H Blood Pressure Mean 79 86 89 Pulse Ox 93 90 90 Oxygen Delivery Method Room Air Room Air Room Air 01/28/24 15:24 Temperature Temperature Source Pulse Rate 106 H Respiratory Rate Blood Pressure Blood Pressure Mean Pulse Ox 93 Oxygen Delivery Method Room Air Results Lab / Micro Data 01/28/24 12:40 01/28/24 12:40 Labs: Laboratory Results - last 24 hr 01/28/24 12:40: WBC 48.9 H*, RBC 3.87 L, Hgb 11.7 L, Hct 34.9 L, MCV 90.2, MCH 30.2, MCHC 33.5, RDW Std Deviation 49.5 H, RDW Coeff of Heath 15.0 H, Plt Count 219, MPV 11.6, Immature Gran % (Auto) 0.700, Neut % (Auto) 10.1 L, Lymph % (Auto) 79.8 H, [place] % (Auto) 9.2, Eos % (Auto) 0.0, Baso % (Auto) 0.2, Absolute Neuts (auto) 4.9, Absolute Lymphs (auto) 39.06 H, Nucleated RBC % 0, Diff Path Review May foll, Atypical Lymphocytes 2+, Reactive Lymphocytes 1+, Plt Morphology Comment LARGE, Polychromasia RARE, Anisocytosis 1+, Sodium 134 L, Potassium 5.6 H, Chloride 101, Carbon Dioxide 25.0, Anion Gap 8, BUN 27 H, Creatinine 1.42 H, Est GFR (MDRD) Af Amer 64, Est GFR (MDRD) Non-Af 53 L, BUN/Creatinine Ratio 19.0, Glucose 87, Calcium 9.0, Total Bilirubin 0.60, AST 57 H, ALT 40, Alkaline Phosphatase 82, Total Protein 7.7, Albumin 3.1 L, Globulin 4.6 H, Albumin/Globulin Ratio 0.7 L 01/28/24 13:51: Urine Color Yellow, Urine Clarity Clear, Urine pH 6.0, Ur Specific [place] 1.010, Urine Protein 15 H, Urine Glucose (UA) Normal, Urine Ketones 5 H, Urine Occult Blood Negative, Urine Nitrite Negative, Urine Bilirubin Negative, Urine Urobilinogen Normal, Ur Leukocyte Esterase Negative, Urine RBC 0 SEEN, Urine WBC 0 SEEN, Ur Squamous Epith Cells 0 SEEN, Urine Bacteria 0 SEEN, Urine Mucus 0 SEEN Micro: Microbiology 01/28/24 12:40 Mucosa - Nose SARS-CoV-2, Influenza & RSV (PCR) - Final ABG Data ABG results: ABG 01/28/24 14:36 Specimen Type ART Sample Site L Radial pH 7.41 Bicarbonate Actual 23.4 Total CO2 25 Base Excess -1 O2 Saturation 90 L ABG pCO2 37.0 ABG pO2 57 L Raúl Test Positive O2 Delivery Device Room Air Vent Mode Not entered Rhythm Strip Rhythm Strip: Sinus Rhythm Rate: 91 Ectopy: None Imaging Radiology Impression Chest X-Ray 01/28/24 13:00 IMPRESSION: Mild pulmonary vascular congestion. Electronically Signed: Clifford Umana MD at 13:31 EDT , Assessment & Plan Assessment/Plan PLAN: Plan 5. Hypertension - Blood pressure controlled, home medications continued with dose adjustment as needed 6. Acute on chronic congestive heart failure with preserved ejection fraction ? Patient managed with Lasix echo ordered for EF assessment ? Patient responded to that radiotherapy 2D echo obtained demonstrated EF of 65% 7. Extensive lymphadenopathy ?Patient apparently has underlying history of multiple myeloma consult placed to oncology on admission 8. Learning disability ? Patient was apparently living with the father who passed recently. Has a brother who is her legal guardian. Plan is for [facility] to [facility] pending placement in a [facility] 9.Class II obesity with BMI of 39 ? Complicating care 10. DVT prophylaxis ? SC Lovenox 11. Acute kidney injury ? Potential nephrotoxic medications including lisinopril discontinued. Also discontinue vancomycin patient started on saline with subsequent monitoring of electrolytes ordered 12. Hypokalemia ? Corrected per protocol repeat labs ordered in a.m. for follow-up 13. Physical deconditioning
--- NOTE | 2024-01-28 16:30 | CT_ITS ---
STUDY: CT SOFT TISSUE NECK WITH CONTRAST REASON FOR EXAM: Male, 64 years old. Left parotid swelling RADIATION DOSAGE (If Supplied By Facility): CTDIvol = ( 16.81 ) mGy, DLP = ( 533.54 ) mGycm TECHNIQUE: The patient was scanned in a multi-detector CT scanner. High resolution transaxial imaging was performed following intravenous administration of IV 100mL [id number]-370. Sagittal and coronal images were reconstructed. Individualized dose optimization techniques were used for this CT. The protocol utilizes one or more of the following dose reduction techniques: automated exposure control, adjustment of mA and/or kV according to patient size,and/or use of iterative reconstruction technique. COMPARISON: None. FINDINGS: Left carotid appears enlarged and lobulated and somewhat heterogeneous. Right parotid normal. Normal bilateral cigarette stamper spaces. Normal bilateral parapharyngeal spaces. Normal bilateral carotid spaces. Normal bilateral sublingual and submandibular glands and spaces. Normal visualized nasopharynx. Normal retropharyngeal space. Normal perivertebral space. Normal visualized bilateral faucial tonsils. The visualized tongue, tongue base and oropharynx are normal. Dominant lymph nodes noted at all levels. The largest are jugulodigastric nodes measuring up to 2.4 x 1.7 cm on the left. There are also small supraclavicular and infraclavicular nodes and prominent nodes in the superior mediastinum partially imaged at the edge of the [id number] measuring up to 2.5 x 1.8 cm. There is no abnormal contrast enhancement. Normal epiglottis, bilateral vallecula and hypopharynx. The pre-epiglottic and paraglottic adipose spaces are normal. Normal visualized bilateral piriform sinuses, aryepiglottic folds, vocal cords, and arytenoid-cricoid articulations. Normal subglottic trachea. Normal bilateral lobes of the thyroid gland. Normal visualized pulmonary apices. Polyp left maxillary sinus. Normal visualized cervical spine. CT/Soft Tissue Neck WITH Contrast IMPRESSION: Probable left parotid mass. MRI with and without IV contrast may be helpful for further characterization. Pathologic nonspecific diffuse bilateral cervical and mediastinal lymphadenopathy. Recommend CT of the chest with IV contrast for further characterization. Differential considerations include metastatic disease and lymphoma. Electronically Signed: Tyler Parikh MD at 17:05 EDT ,
--- NOTE | 2024-01-28 16:43 | PCM.HP.STD ---
HPI - General General Date of Admission: 01/28/24 Date of Service: 01/28/24 Chief Complaint: Decreased mentation for last 3 to 4 days. Not acting himself. Concern for left-sided facial swelling. Recent diagnosis of pneumonia HPI Narrative ALLEY FORTE, is a 64 M [facility] resident was brought to ED by EMS from [facility] for altered mental status. Patient has developmental delay/intellectual disability and lives in [facility]. I talked to the healthcare personnel from the [facility] presented near the bedside. She said that he is not eating or drinking for last 3 days along with not talking or communicating. Usually his baseline he talks. He is also incontinent. He is not responding like he usually does. Patient also has left-sided facial swelling. Therefore he was sent to ED. As per the EMS report, patient was able to say yes or no questions appropriately but to me he did not even utter single word. He is awake. History mainly taken from the health aide from [facility], nursing staff and ED physician and EMS documentation. EMS vitals show BP 111/60, pulse 90, RR 16 to 18/min. Pulse ox 97% on room air. In ED, patient had basic lab work. Patient is CLL and has high lymphocyte count mainly lymphocytosis but is more than his baseline. ABG 7.[address] neck was done at my request to evaluate left facial swelling and discussed further in assessment plan. [facility] Medical History Stasis dermatitis of both legs Ulcer of right lower extremity with fat layer exposed Intellectual disability Melanoma HTN (hypertension) Cellulitis of both lower extremities Edema of both legs Noncompliance Ulcer of left lower leg Home Medications ?Medication ?Instructions ?Recorded ?Last Taken ?Type lisinopril 10 mg tablet 10 mg PO DAILY BP 12/15/16 10/08/21 History amlodipine 5 mg tablet 5 mg PO DAILY #30 tabs 09/09/23 Unknown Rx pantoprazole 40 mg tablet,delayed 40 mg PO BID #0 tabs 09/09/23 Unknown Rx release potassium chloride 20 mEq 20 meq PO BID #30 tabs 09/09/23 Unknown Rx tablet,extended release furosemide 40 mg tablet (Lasix) 40 mg PO DAILY 11/18/23 Unknown History multivitamin 1 tab PO DAILY 11/18/23 Unknown History docusate sodium 100 mg capsule 100 mg PO BID 01/28/24 Unknown History ferrous sulfate 325 mg (65 mg 325 mg PO BID 01/28/24 Unknown History iron) tablet (FeroSul) fluticasone propionate 50 1 spray intranasal DAILY 01/28/24 Unknown History mcg/actuation nasal spray,suspension loratadine 10 mg tablet 10 mg PO DAILY 01/28/24 Unknown History nystatin 100,000 unit/gram topical 1 applic topical BID 01/28/24 Unknown History cream Allergy/AdvReac Type Severity Reaction Status Date / Time No Known Allergies Allergy Verified 01/28/24 11:45 Surgical History History of skin graft H/O melanoma excision Social History Smoking Status: Never smoker ROS ROS Narrative 14 system ROS unobtainable as patient has altered mental status and has baseline intellectual disability/developmental delay Review of Systems ROS Unobtainable: due to encephalopathy and due to mental condition Vital Signs Vital Signs Vital Signs: 01/28/24 11:45 01/28/24 11:45 01/28/24 12:50 Temperature 97.8 F 97.8 F 97.1 F L Temperature Source Temporal Temporal Temporal Pulse Rate 78 78 92 Respiratory Rate 16 16 20 H Blood Pressure 115/60 115/60 95/66 Blood Pressure Mean 78 78 75 Pulse Ox 98 98 93 Oxygen Delivery Method Room Air Room Air Room Air 01/28/24 13:45 01/28/24 14:00 01/28/24 15:00 Temperature 99.3 F H 99.3 F H Temperature Source Temporal Oral Pulse Rate 94 103 H 100 Respiratory Rate 14 20 H 22 H Blood Pressure 111/63 138/61 H 135/67 H Blood Pressure Mean 79 86 89 Pulse Ox 93 90 90 Oxygen Delivery Method Room Air Room Air Room Air 01/28/24 15:24 01/28/24 16:00 Temperature 98.1 F Temperature Source Temporal Pulse Rate 106 H 99 Respiratory Rate 15 Blood Pressure 119/74 Blood Pressure Mean 89 Pulse Ox 93 90 Oxygen Delivery Method Room Air Room Air Physical Exam Narrative General: Awake, nonverbal, noncommunicative. Cannot evaluate orientation. HEENT: Left side facial swelling around parotid region, very firm to hard in consistency, indurated, none mobile. Seems nontender. Right side also mild. Swelling but much less than the left side. Atraumatic, PERRLA, EOMI, Normocephalic Oral: Oral mucosa dry. No Gingival or Mucosal Lesions/ Ulcerations Neck: Supple, No JVD, Negative Carotid Bruits Chest wall/Lungs: Air entry diminished in bilateral lung bases. Mild basal crepitations. Cardiovascular: Sinus rhythm, Normal S1, Normal S2, No M/G/R Abdomen: Bowel Sounds Present, Soft, Non Tender, Non-Distended : No dysuria. No renal angle tenderness. No suprapubic tenderness. Extremities: No edema, Capillary Refill Less than 3 Seconds Skin: Bilateral lower legs chronic leg swelling covered with bandage. Mild superficial oozing/fluid seepage Musculoskeletal: No Tenderness to Palpation of Joints or Extremities Neurological: Agitated, mildly restless. Trying to get out of the bed. Encephalopathic. Nonfocal exam. Detailed neuroexam unobtainable. GCS E4 V1, M4, total 9 point Psych/Mental Status: Mildly agitated Results Lab / Micro Data 01/28/24 12:40 01/28/24 12:40 Labs: Laboratory Results - last 24 hr 01/28/24 12:40: WBC 48.9 H*, RBC 3.87 L, Hgb 11.7 L, Hct 34.9 L, MCV 90.2, MCH 30.2, MCHC 33.5, RDW Std Deviation 49.5 H, RDW Coeff of Heath 15.0 H, Plt Count 219, MPV 11.6, Immature Gran % (Auto) 0.700, Neut % (Auto) 10.1 L, Lymph % (Auto) 79.8 H, Randall % (Auto) 9.2, Eos % (Auto) 0.0, Baso % (Auto) 0.2, Absolute Neuts (auto) 4.9, Absolute Lymphs (auto) 39.06 H, Nucleated RBC % 0, Diff Path Review May foll, Atypical Lymphocytes 2+, Reactive Lymphocytes 1+, Plt Morphology Comment LARGE, Polychromasia RARE, Anisocytosis 1+, Sodium 134 L, Potassium 5.6 H, Chloride 101, Carbon Dioxide 25.0, Anion Gap 8, BUN 27 H, Creatinine 1.42 H, Est GFR (MDRD) Af Amer 64, Est GFR (MDRD) Non-Af 53 L, BUN/Creatinine Ratio 19.0, Glucose 87, Calcium 9.0, Total Bilirubin 0.60, AST 57 H, ALT 40, Alkaline Phosphatase 82, Total Protein 7.7, Albumin 3.1 L, Globulin 4.6 H, Albumin/Globulin Ratio 0.7 L 01/28/24 13:51: Urine Color Yellow, Urine Clarity Clear, Urine pH 6.0, Ur Specific Montesano 1.010, Urine Protein 15 H, Urine Glucose (UA) Normal, Urine Ketones 5 H, Urine Occult Blood Negative, Urine Nitrite Negative, Urine Bilirubin Negative, Urine Urobilinogen Normal, Ur Leukocyte Esterase Negative, Urine RBC 0 SEEN, Urine WBC 0 SEEN, Ur Squamous Epith Cells 0 SEEN, Urine Bacteria 0 SEEN, Urine Mucus 0 SEEN Micro: Microbiology 01/28/24 12:40 Mucosa - Nose SARS-CoV-2, Influenza & RSV (PCR) - Final ABG Data ABG results: ABG 01/28/24 14:36 Specimen Type ART Sample Site L Radial pH 7.41 Bicarbonate Actual 23.4 Total CO2 25 Base Excess -1 O2 Saturation 90 L ABG pCO2 37.0 ABG pO2 57 L Raúl Test Positive O2 Delivery Device Room Air Vent Mode Not entered Rhythm Strip Rhythm Strip: Sinus Rhythm Rate: 91 Ectopy: None Imaging Radiology Impression Chest X-Ray 01/28/24 13:00 IMPRESSION: Mild pulmonary vascular congestion. Electronically Signed: Clifford Umana MD at 13:31 EDT , Assessment & Plan Assessment/Plan (1) Acute encephalopathy: (2) Left facial swelling: PLAN: Plan This is a 64-year-old gentleman was brought to ED by EMS from [facility] for altered mental status and left-sided facial swelling. 1. Altered mental status most likely acute encephalopathy from multiple etiologies including infection/metabolic on baseline developmental delay/intellectual disability: Patient is being admitted in PCU. Concern for sepsis therefore sepsis labs ordered. For now blood pressure is in normal range and did not show major drop in systolic pressure. Mild tachycardia. ABG 7.4 1/37/57 on room air suggestive of mild hypoxia. Oxygen support and respiratory therapist monitoring. Keep pulse ox more than 90%. 2. Left parotid swelling/mass most likely infectious possible neoplastic: Patient is being admitted to PCU. CBC shows leukocytosis more than baseline mainly lymphocytosis 79.8%. Soft tissue neck CT with IV contrast done shows probably left parotid mass, reported enlarged lobulated and somewhat heterogeneous. Right parotid normal. Typographical mistake in the reporting of CT stating left carotid but seems left parotid. Normal bilateral parapharyngeal space, bilateral building equipment inspector spaces and normal bilateral carotid spaces. Normal bilateral sublingual submandibular glands Restasis. Normal retropharyngeal space, nasopharynx. Previous BX. Normal bilateral fossil tonsils. Lymph nodes especially largest jugulodigastric 2.4 x 1.7 cm on the left, small supraclavicular and infraclavicular nodes and prominent nodes in superior mediastinum measuring up to 2.5 x 1.8 cm. Normal epiglottis bilateral vallecula and hypopharynx. Overall enlarged lymph nodes especially superior mediastinal probably from history of CLL Patient is started on empirically IV vancomycin and Zosyn. ENT Dr. Tyler Owens consulted from ED physician and I think he mainly needs IV antibiotics but will follow him. Keep the patient n.p.o. for now. 3. CLL with extensive lymphadenopathy including mediastinal lymphadenopathy: Patient has a history of CLL with baseline leukocytosis about 30,000 mainly lymphocytosis. Did not find note of oncologist in the chart. Need to follow-up outpatient oncology. 4. Recent diagnosis of pneumonia: As per triage note patient was recently evaluated in [facility] ER for pneumonia and pulmonary edema about 2 days ago. He was discharged on Z-Salbador. Triple SARS-CoV-2, influenza and RSV PCR are negative. Pneumonia workup ordered. Patient on IV antibiotic as mentioned above. 5. CKD stage IIIa: Patient baseline creatinine is around 1.65 varying from 1.59-1.79. Admitting BUNs/creatinine 27/1.42. Mild hyponatremia, sodium 134. Mild hyperkalemia, potassium 5.6. Monitor kidney function electrolytes. EKG did not show signs of hyperkalemia. 6. Chronic HFpEF: Twelve-lead EKG individually reviewed shows normal sinus rhythm 91/min, QTc 457 ms. Low voltage QRS. Nonspecific ST-T abnormality. Chest x-ray individually reviewed and shows pulmonary venous congestion. Clinically patient looks dry and has not much oral intake for last 2 to 3 days as per [facility] aide. Therefore only 1 L IV fluid ordered. Monitor intake and output. BNP ordered. The patient shows clinical signs and symptoms of pulmonary edema, will need IV diuresis. Last echo in September 2023 shows EF 65% with normal diastology for age. Normal RV. Normal left atrium. Trivial MR. Trivial AI. Pulmonology and tricuspid valve not visualized. 7. Electrolyte abnormality: Mild hyponatremia and hyperkalemia. Monitor electrolytes. IV fluid ordered. 8. Learning/intellectual disability with developmental delay: Patient lives in [facility] As per last discharge summary, patient was apparently living with the father who passed recently. Has a brother who is her legal guardian. 9. Class II obesity with BMI of 39 ? Complicating care 10. DVT prophylaxis ? SC Lovenox 11. Physical deconditioning: PT and OT ordered. Living will/advanced directive/end of life care: Patient's legal guardian is Mr. Huy Forte, phone #[phone]. I think he is the patient's brother. I called this number and left a voice message to call back. I also checked with the [facility] health aide with the patient and she did not find any documentation regarding living will or CODE STATUS. For now full code unverified Microbiology Past 72 Hours 01/28/24 12:40 Mucosa - Nose SARS-CoV-2, Influenza & RSV (PCR) - Final Laboratory Results 01/28/24 12:40: WBC 48.9 H*, RBC 3.87 L, Hgb 11.7 L, Hct 34.9 L, MCV 90.2, MCH 30.2, MCHC 33.5, RDW Std Deviation 49.5 H, RDW Coeff of Heath 15.0 H, Plt Count 219, MPV 11.6, Immature Gran % (Auto) 0.700, Neut % (Auto) 10.1 L, Lymph % (Auto) 79.8 H, Randall % (Auto) 9.2, Eos % (Auto) 0.0, Baso % (Auto) 0.2, Absolute Neuts (auto) 4.9, Absolute Lymphs (auto) 39.06 H, Nucleated RBC % 0, Diff Path Review May foll, Atypical Lymphocytes 2+, Reactive Lymphocytes 1+, Plt Morphology Comment LARGE, Polychromasia RARE, Anisocytosis 1+, Sodium 134 L, Potassium 5.6 H, Chloride 101, Carbon Dioxide 25.0, Anion Gap 8, BUN 27 H, Creatinine 1.42 H, Est GFR (MDRD) Af Amer 64, Est GFR (MDRD) Non-Af 53 L, BUN/Creatinine Ratio 19.0, Glucose 87, Calcium 9.0, Total Bilirubin 0.60, AST 57 H, ALT 40, Alkaline Phosphatase 82, Total Protein 7.7, Albumin 3.1 L, Globulin 4.6 H, Albumin/Globulin Ratio 0.7 L 01/28/24 13:51: Urine Color Yellow, Urine Clarity Clear, Urine pH 6.0, Ur Specific Montesano 1.010, Urine Protein 15 H, Urine Glucose (UA) Normal, Urine Ketones 5 H, Urine Occult Blood Negative, Urine Nitrite Negative, Urine Bilirubin Negative, Urine Urobilinogen Normal, Ur Leukocyte Esterase Negative, Urine RBC 0 SEEN, Urine WBC 0 SEEN, Ur Squamous Epith Cells 0 SEEN, Urine Bacteria 0 SEEN, Urine Mucus 0 SEEN 01/28/24 14:36: Specimen Type ART, Sample Site L Radial, pH 7.41, Bicarbonate Actual 23.4, Total CO2 25, Base Excess -1, O2 Saturation 90 L, ABG pCO2 37.0, ABG pO2 57 L, Raúl Test Positive, O2 Delivery Device Room Air, Vent Mode Not entered 2D echo Interpretation Summary Technically difficult study. The left ventricular ejection fraction is 65 %. Normal diastology for age Clinical Impression(s) from Imaging Studies Chest X-Ray 01/28/24 13:00 IMPRESSION: Mild pulmonary vascular congestion. Electronically Signed: Clifford Umana MD at 13:31 EDT , Soft Tissue Neck CT 01/28/24 16:30 IMPRESSION: Probable left parotid mass. MRI with and without IV contrast may be helpful for further characterization. Pathologic nonspecific diffuse bilateral cervical and mediastinal lymphadenopathy. Recommend CT of the chest with IV contrast for further characterization. Differential considerations include metastatic disease and lymphoma. Charges/Coding Visit Charges Inpatient E&M: 27401 Init Hosp L3 Procedures Hospitalists Procedures: 59284 Advncd Care Plan 30 Min
[2024-01-28] MEDS: Ipratropium/Albuterol Sulfate 3 ML AMPUL.NEB INHALATION (17:02)
[2024-01-28 18:07] LABS: BNP,B-Type NATRIURETIC PEPTIDE 42.7 pg/mL (0-100)
[2024-01-28 18:10] LABS: CPK Total, Creatine Kinase 42 U/L (39-308); Magnesium 2.3 mg/dL (1.6-2.6)
[2024-01-28 18:30] LABS: International Normalized Ratio 1.2; Prothrombin Time (Protime)PT. 15.1 SECONDS (11.7-14.9)
[2024-01-28 18:31] LABS: Partial Thromboplast Time 28.5 Seconds (24.1-36.2)
[2024-01-28 18:56] LABS: Lactic Acid 1.6 mmol/L (0.4-1.9)
[2024-01-28] MEDS: 0.9% Saline Lock 10 ML Syringe IV (19:12)
[2024-01-28] MEDS: Vancomycin HCl 2,000 MG in 0.9% Normal Saline (500mL Bag) 500 ML 250 MG IV (19:12)
--- NOTE | 2024-01-28 20:19 | PCM.RX.CS ---
Consult Antibiotic Management Pharmacy has been consulted to manage selected antibiotic: Vancomycin Type of Intervention Type of Consult: New start Suspected Infection Suspected Infection: Pneumonia Prior Doses of Antibiotics Prior Doses of Antibiotics Received/Current Regimen: Received 2000mg iv x 1 as initial dose on 01.28.24 @1912. Labs Labs: Sodium 134 mmol/L (136-145) L 01/28/24 12:40 Potassium 5.6 mmol/L (3.5-5.1) H 01/28/24 12:40 Chloride 101 mmol/L (98-107) 01/28/24 12:40 Carbon Dioxide 25.0 mmol/L (21.0-32.0) 01/28/24 12:40 Anion Gap 8 (5-15) 01/28/24 12:40 BUN 27 mg/dL (7-18) H 01/28/24 12:40 Creatinine 1.42 mg/dL (0.70-1.30) H 01/28/24 12:40 Est GFR (MDRD) Af Amer 64 mL/min (>60) 01/28/24 12:40 Est GFR (MDRD) Non-Af 53 mL/min (>60) L 01/28/24 12:40 BUN/Creatinine Ratio 19.0 RATIO (10-20) 01/28/24 12:40 Glucose 87 mg/dL (74-106) 01/28/24 12:40 Microbiology Microbiology: Microbiology 01/28/24 13:51 Urine Catheter - Catheter Legionella Antigen - Final 01/28/24 13:51 Urine Catheter - Catheter Streptococcus pneumoniae Antigen (M - Final 01/28/24 12:40 Mucosa - Nose SARS-CoV-2, Influenza & RSV (PCR) - Final Dosing Weight Weight used for dosin.5 kg Estimated Creatinine Clearance Estimated Creatinine Clearance: 56 ml/min Goal Trough Goal Trough: 15-20 mcg/mL Pharmacy Plan for Drug Dosing Pharmacy Plan for Drug Dosing: Recommend a starting dose of 1000mg iv q12h using an adjusted body weight of 76.9kg. Trough level ordered for before 4th total dose on 01.30.24. Pharmacy Service will continue to monitor and adjust dosing as required. Follow-Up Labs Follow-Up Labs: Trough: Vancomycin (01.30.24 @0630)
[2024-01-28] MEDS: 0.9% Normal Saline (1000mL) 1,000 ML 500 ML IV (22:09)
[2024-01-29] VITALS (8 sets, daily range): BP systolic 102–140; BP diastolic 58–72; PULSE 78–96; RESP 18–22; TEMP 36.3–36.6; O2SAT 93–98; BMI 31.0
[2024-01-29] MEDS: Piperacil/Tazobactam 3.375 GM in 0.9% Normal Saline (50mL MB+) 50 ML IV ×4 (00:18→21:25)
[2024-01-29] MEDS: Vancomycin IV 1,000 MG/200 ML BAG 200 MG IV ×2 (06:05→19:10)
--- NOTE | 2024-01-29 06:34 | MRI_ITS ---
EXAM: MR NECK WITHOUT AND WITH INTRAVENOUS CONTRAST CLINICAL INDICATION: Parotid mass evaluation, ABNORMAL CT TECHNIQUE: Multiplanar and multisequence MR images of the neck without and with intravenous contrast. Magnetic field strength 3 T. High field CONTRAST: 19 cc of Clariscan IV. COMPARISON: CT scan of the neck with contrast 01/28/2024. FINDINGS: LIMITATIONS: Motion artifact somewhat limits the exam. NASOPHARYNX: Unremarkable. OROPHARYNX: Unremarkable. No significant tonsillar enlargement. No peritonsillar abscess. HYPOPHARYNX: Unremarkable. LARYNX: Unremarkable. Normal epiglottis. RETROPHARYNGEAL SPACE: Unremarkable. SUBMANDIBULAR/PAROTID GLANDS: Somewhat lobulated enhancing ill-defined mass measuring approximately 3.5 x 2.8 x 3.2 cm involving the left parotid gland. THYROID: Unremarkable. No enlarged or calcified nodules. BONES/JOINTS: Unremarkable. No acute fracture. VASCULATURE: Unremarkable. LYMPH NODES: Extensive bilateral level I, II, III, IV, , and VII cervical adenopathy. MRI/Orbit Face Neck W/WO Contrast IMPRESSION: 1. Lobulated enhancing ill-defined mass measuring approximately 3.5 x 2.8 x 3.2 cm involving the left parotid gland visualization of which is somewhat limited due to motion artifacts. In view of the associated extensive cervical adenopathy most likely etiology is non-Hodgkin lymphoma. Other considerations for the parotid mass include pleomorphic adenoma, Warthin''s tumor, adenoid cystic carcinoma and mucoepidermoid carcinoma. 2. Extensive bilateral level I, II, III, IV, , and VII cervical adenopathy. Electronically Signed: Viral Cruz MD at 16:28 EDT ,
--- NOTE | 2024-01-29 06:39 | PCM.PN.HOSP ---
Reason for Visit Reason for Visit: Diagnoses Encephalopathy, unspecified (01/28/24) Localized swelling, mass and lump, head (01/28/24) Subjective Subjective Patient with stable vital signs overnight per discussion with nursing staff. Patient remains minimally interactive and decreased verbal interaction but during evaluation did request whether or not it was painful to palpation of the left side of his face and he was able to say no. He is very fatigued and lethargic. He is unable to answer any orientation questions or any ROS questions secondary to underlying acute presentation but also underlying chronic mental debility. Patient without current evidence of fevers, chills, nausea, emesis, abdominal pain, chest pain or dyspnea. Objective Data Objective Data Vital Signs: Vital Signs Temp Pulse Resp BP Pulse Ox O2 Del Method 97.5 F L 78 18 121/60 H 93 Room Air 01/29/24 04:00 01/29/24 04:00 01/29/24 04:00 01/29/24 04:00 01/29/24 04:00 01/29/24 04:00 Oxygen Delivery Method Room Air Weight: 222 lb 7.143 oz Body Mass Index (BMI) 31.0 Intake & Output: Intake and Output for Last 24 Hours 01/27/24 01/28/24 01/29/24 23:59 23:59 23:59 Intake Total 1540 / 1540 1300 / 1300 Balance 1540 / 1540 1300 / 1300 Lab / Micro Data 01/28/24 12:40 01/28/24 12:40 Labs: Laboratory Results - last 24 hr 01/28/24 12:40: WBC 48.9 H*, RBC 3.87 L, Hgb 11.7 L, Hct 34.9 L, MCV 90.2, MCH 30.2, MCHC 33.5, RDW Std Deviation 49.5 H, RDW Coeff of [place] 15.0 H, Plt Count 219, MPV 11.6, Immature Gran % (Auto) 0.700, Neut % (Auto) 10.1 L, Lymph % (Auto) 79.8 H, [place] % (Auto) 9.2, Eos % (Auto) 0.0, Baso % (Auto) 0.2, Absolute Neuts (auto) 4.9, Absolute Lymphs (auto) 39.06 H, Nucleated RBC % 0, Diff Path Review May foll, Atypical Lymphocytes 2+, Reactive Lymphocytes 1+, Plt Morphology Comment LARGE, Polychromasia RARE, Anisocytosis 1+, Sodium 134 L, Potassium 5.6 H, Chloride 101, Carbon Dioxide 25.0, Anion Gap 8, BUN 27 H, Creatinine 1.42 H, Est GFR (MDRD) Af Amer 64, Est GFR (MDRD) Non-Af 53 L, BUN/Creatinine Ratio 19.0, Glucose 87, Calcium 9.0, Magnesium 2.3, Total Bilirubin 0.60, AST 57 H, ALT 40, Alkaline Phosphatase 82, Total Creatine Kinase 42, B-Natriuretic Peptide 42.7, Total Protein 7.7, Albumin 3.1 L, Globulin 4.6 H, Albumin/Globulin Ratio 0.7 L 01/28/24 13:51: Urine Color Yellow, Urine Clarity Clear, Urine pH 6.0, Ur Specific [place] 1.010, Urine Protein 15 H, Urine Glucose (UA) Normal, Urine Ketones 5 H, Urine Occult Blood Negative, Urine Nitrite Negative, Urine Bilirubin Negative, Urine Urobilinogen Normal, Ur Leukocyte Esterase Negative, Urine RBC 0 SEEN, Urine WBC 0 SEEN, Ur Squamous Epith Cells 0 SEEN, Urine Bacteria 0 SEEN, Urine Mucus 0 SEEN 01/28/24 18:07: PT 15.1 H, INR 1.2, APTT 28.5, Lactic Acid 1.6 Micro: Microbiology 01/28/24 13:51 Urine Catheter - Catheter Legionella Antigen - Final 01/28/24 13:51 Urine Catheter - Catheter Streptococcus pneumoniae Antigen (M - Final 01/28/24 12:40 Mucosa - Nose SARS-CoV-2, Influenza & RSV (PCR) - Final ABG Data ABG results: ABG 01/28/24 14:36 Specimen Type ART Sample Site L Radial pH 7.41 Bicarbonate Actual 23.4 Total CO2 25 Base Excess -1 O2 Saturation 90 L ABG pCO2 37.0 ABG pO2 57 L Raúl Test Positive O2 Delivery Device Room Air Vent Mode Not entered Radiography Diagnostic Testing: Radiology Impression Chest X-Ray 01/28/24 13:00 IMPRESSION: Mild pulmonary vascular congestion. Electronically Signed: Clifford Umana MD at 13:31 EDT , Soft Tissue Neck CT 01/28/24 16:30 IMPRESSION: Probable left parotid mass. MRI with and without IV contrast may be helpful for further characterization. Pathologic nonspecific diffuse bilateral cervical and mediastinal lymphadenopathy. Recommend CT of the chest with IV contrast for further characterization. Differential considerations include metastatic disease and lymphoma. Electronically Signed: Tyler Parikh MD at 17:05 EDT Reading Location ID and State: [address] [place] [address] Tel , Service support , ADDENDUM: 01/28/24 1748 IMPRESSION: undefined ADDENDUM: 01/28/24 1852 IMPRESSION: undefined Rhythm Strip Rhythm Strip: Sinus Rhythm Rate: 91 Ectopy: None Physical Exam Narrative Physical Examination: General: Awakens to stimuli, not markedly alert, not answering orientation questions but primarily nonverbal, except to say that he does not have pain to the left side of his face with palpation, fatigued and ill-appearing, seated upright in the PCU bed. Skin: Normal color, normal turgor, no icterus, no cyanosis except for very stage ecchymoses, occasional abrasion, mild perioral irritation and BL LE chronic lymphedema/venous stasis ulcers with occasional stasis blister with serosanguineous seepage.. HEENT: AT/NC, EOMI, PERRLA, dry MM, no carotid bruits or JVD noted. Lungs: Diminished, greater bases, poor effort, no rales, ronchi or wheezing. Heart: Mildly tachycardic with regular rhythm; no gallop, rub audible. Abdomen: Soft, obese, no grimacing or discomfort apparent with palpation, distant bowel sounds, no obvious distention. Extremities: No cyanosis, no clubbing, bilateral lower extremity chronic lymphedema/venous stasis ulcers with occasional stasis blister with serosanguineous seepage. Neurological: Awakens to stimuli, not markedly alert, not answering orientation questions but primarily nonverbal, except to say that he does not have pain to the left side of his face with palpation, fatigued and ill-appearing, cognitive function significantly impaired baseline but decreased from previous baseline secondary to acute presentation; pupils equally reactive to light and accommodation, cranial nerves difficult to assess but appear grossly normal, moving extremities spontaneously, no obvious focal deficits, strength severely globally decreased. Psychiatric: Affect appears currently calm, had previously been reported as agitated, no acute evidence of depressive or anxiety feelings. Assessment & Plan Assessment/Plan (1) CHF (congestive heart failure): PLAN: Plan The patient is a 64 y/o M w/ PMHx: CLL, HFpEF, HTN, Obesity, CKD stage IIIa, Chronic anemia/iron deficiency anemia, Chronic developmental delay/intellectual disability presents to the [facility] ED on 01/28/24 with history of decreased mentation, increased lethargy over the last 3 to 4 days with onset of left-sided facial swelling with recent diagnosis of pneumonia residing in a residential with decreased intake and communication unusual to his baseline in addition to incontinence prompting ED evaluation to be cautious. #1. Acute Decompensated HFpEF: Workup in the ED included T97.8, heart rate 78, BP 115/60, respiratory rate 16, 98% on room air with Tmax 99.3, most recent vitals T97.5, heart rate 78, BP 121/60, respiratory rate 18, 93% on room air, CBC with WBC 48.9, hemoglobin 11.7, MCV 90.2, platelet 219 with significant left shift, unremarkable coags, ABG with O2 saturation 90%, PaO2 57, pCO2 37 on room air, CMP with sodium 134, potassium 5.6, BUN/creatinine 27/1.42, GFR 53, magnesium 2.3, lactic acid 1.6, hepatic profile with AST 57 otherwise not marked appearing, total creatinine kinase 42, BNP 42.7, urinalysis unremarkable, chest x-ray with mild pulmonary vascular congestion, CT neck soft tissue with left parotid enlarged and lobulated, possible left parotid mass with diffuse bilateral cervical and mediastinal lymphadenopathy, SARS COVID/influenza/RSV PCR negative, blood culture pending per ED, urine culture pending per ED. In the ED patient ministered 1 L normal saline and DuoNeb therapy. Admitted to PCU, maintained on cardiac telemetry, intially maintained on lasix 40 mg IV daily to be cautious as concern dry upon presentation despite findings on film but BNP not elevated at 43.7 thus will d/c and transition back to oral lasix daily regimen, monitor I/Os, maintain on intake restriction, continue medical therapy with aspirin, lisinopril, not on beta-chayo therapy but unclear certain etiology, adding statin, magnesium 2.3, obtain TSH and magnesium level. Most recent ECHO noted with LVEF 65% with normal diastology for age. #2. Recent outpatient pneumonia diagnosis, possibly community-acquired: Recent evaluation at outside facility ED for pneumonia and pulmonary edema 2 days prior, discharged on Z-Salbador at that time, SARS COVID/influenza/RSV negative, Legionella and strep urine antigens negative, will obtain full respiratory viral panel as well as sputum culture, maintained on broad-spectrum antibiotic therapy with IV vancomycin and IV Zosyn given also parotid mass with unclear etiology, MRSA screen requested, continue ATC duonebs, PRN albuterol, HOB, IS parameters w/ pending sputum cultures and procalcitonin #3. 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 #4. Hyperkalemia, mild, admission potassium 5.6, judiciously hydrated initially prior to diuresis initiation as noted, de-escalating, repeat 01/29/2024 potassium []. #5. Hyponatremia, mild: Admission CMP with sodium 134, possibly secondary to recent poor intake, hypovolemia, initially as noted in the ED very judiciously hydrated given concerns also for concurrent overload, transition from IV Lasix to oral regimen as noted above, repeat CMP in AM. #6. Hypertension: Continue home regimen including lisinopril, Lasix, amlodipine, PRN hydralazine. #7. CLL: Patient with extensive lymphadenopathy including metastatic new lymphadenopathy: Patient with baseline leukocytosis of 30,000, mainly lymphocytosis, encourage continued outpatient follow-up with hematology/oncology as previously arranged. #8. Chronic Kidney Disease Stage IIIa: Admission BUN/Cr 27/1.40, GFR 53, baseline renal function 1.5-1.7 more recently however previous to this his renal function was 0.7-1.1 but changed 08/2023, last noted 09/07/2023 creatinine 1.67, repeat BMP in AM. #9. Chronic normocytic anemia/iron deficiency anemia: Admission hemoglobin 0.7, MCV 90.2, baseline appears primarily 10-12, continue iron supplementation, continue CBC trending. #10. Allergic rhinitis: We will continue patient on fluticasone and loratadine regimen. #11. Chronic developmental delay/intellectual debility: Residing in a residential, complicates presentation, previously apparently had potentially been living with her father who is recently , brother is his legal guardian, case management/social work consulted. #12. Obesity: Weight loss and lifestyle changes encouraged. #13. GERD: We will continue patient on PPI. #14. DVT prophylaxis: Lovenox. #15. CODE STATUS: Per review of facility CODE status transfers prior, will add DNR-CCA, no intubation status. Charges/Coding Visit Charges Inpatient E&M: 58916 Subs Hosp L3
--- NOTE | 2024-01-29 07:09 | NURSING ---
Pt refusing to let lab draw his blood.
--- NOTE | 2024-01-29 08:59 | NURSING ---
Pt. refused lovenox shot on multiple occasions by multiple staff members. Pt. would look @ nurse without speaking when explained the medication and its use, but then twist body away and state No or i don't want it and appearing to become anxious when attempting to give the injection. Pt. also refused lab work to be drawn by multiple staff members, appearing to do similar body movements and saying similar things when lab work was attempted. Pt. does not seem to understand the importance of these things needing done.
--- NOTE | 2024-01-29 09:30 | CPS ---
patient unable to perform incentive and pep therapy at time of visit.
[2024-01-29] MEDS: amLODIPine 5 MG Tablet PO (09:37)
[2024-01-29] MEDS: Lisinopril 10 MG Tablet PO (09:37)
[2024-01-29] MEDS: Pantoprazole Sodium 40 MG Tablet PO ×2 (09:37→21:25)
[2024-01-29] MEDS: Furosemide 40 MG/4 ML Vial IV (09:38)
[2024-01-29] MEDS: Loratadine 10 MG Tablet PO (09:38)
[2024-01-29] MEDS: Aspirin 81 MG TAB.CHEW PO (09:38)
[2024-01-29] MEDS: Ferrous Sulfate 325 MG Tablet PO ×2 (09:38→16:29)
[2024-01-29] MEDS: Nystatin Ointment 1 APPLIC TOPICAL ×2 (09:39→21:25)
[2024-01-29] MEDS: Fluticasone 0.05% 1 SPRAY NASAL.SRY NASAL (09:40)
[2024-01-29] MEDS: 0.9% Saline Lock 10 ML Syringe IV (09:41)
--- NOTE | 2024-01-29 10:46 | CASEMGMT ---
Social Work Pt has a guardian of person, Huy Alonso, document is scanned into [email or web address]. MARC Pradhan
--- NOTE | 2024-01-29 15:11 | CASEMGMT ---
Social Work- SW called pt brother and legal guardian to discuss preferences at d/c. Huy reports plan to return to care home. BOYD Egan
[2024-01-29] MEDS: Ipratropium/Albuterol Sulfate 3 ML AMPUL.NEB INHALATION (20:12)
[2024-01-29] MEDS: Atorvastatin Calcium 40 MG Tablet PO (21:25)
--- NOTE | 2024-01-29 21:56 | PCM.HOSP.N ---
Hospitalist Note LDH, uric acid, HIV, Hep C, and Hep B and stat BMP as pt was hyperkalemia on 01/27. If Uric acid is elevated, will start allopurinol and IVF.
[2024-01-29 23:36] LABS: Anion Gap 6 (5-15); BUN 20 mg/dL (7-18); BUN/Creat Ratio 13.7 RATIO (10-20); Calcium,Total 8.4 mg/dL (8.5-10.1); Chloride 101 mmol/L (98-107); Creatinine, Serum 1.46 mg/dL (0.70-1.30); EST Glomerular Filtration Rate 52 mL/min (>60); Est Glom Filt Rate - Afr Amer 62 mL/min (>60); Estimated Creatinine Clearance 61.03 ml/min; Glucose 144 mg/dL (74-106); LDH 390 U/L (87-241); Potassium 4.5 mmol/L (3.5-5.1); Sodium Level 134 mmol/L (136-145); Uric Acid 10.7 mg/dL (3.5-7.2)
[2024-01-30] VITALS (11 sets, daily range): BP systolic 107–117; BP diastolic 60–74; PULSE 77–89; RESP 18–20; TEMP 36.1–36.7; O2SAT 94–99; BMI 30.9
[2024-01-30 00:33] LABS: HIV - WCH Non-Reactive (Nonreactive); Hepatitis B Surface Antibody Non-Reactive; Hepatitis B Surface Antigen Non-Reactive (Nonreactive); Hepatitis C Antibody Non-Reactive (Nonreactive)
[2024-01-30 01:44] LABS: Hematocrit 33.9 % (40-54); Hemoglobin 11.1 g/dL (13.0-16.5); Mean Corp Hgb Conc 32.7 g/dL (32-36); Mean Corpuscular Hgb 29.7 pg (27.0-32.0); Mean Corpuscular Volume 90.6 fL (80-94); Mean Platelet Vol. 12.6 fl (6.2-12.0); POSITIVE COUNT YES; POSITIVE DIFFERENTIAL YES; POSITIVE MORPHOLOGY YES; Platelet Count 182 K/mm3 (150-450); RBC Distribution Width CV 14.8 % (11.6-14.6); RBC Distribution Width SD 49.2 fl (35.1-43.9); Red Blood Count 3.74 M/mm3 (4.6-6.2)
[2024-01-30 01:58] LABS: ALB/GLOB Ratio 0.6 RATIO (0.9-2.4); AST(SGOT) 41 U/L (15-37); Alanine Aminotransfer ALT/SGPT 32 U/L (16-61); Albumin, Serum 2.7 g/dL (3.2-5.0); Alkaline Phosphatase 82 U/L (45-117); Anion Gap 9 (5-15); BUN 21 mg/dL (7-18); BUN/Creat Ratio 15.1 RATIO (10-20); Calcium,Total 8.3 mg/dL (8.5-10.1); Chloride 101 mmol/L (98-107); Creatinine, Serum 1.39 mg/dL (0.70-1.30); EST Glomerular Filtration Rate 55 mL/min (>60); Est Glom Filt Rate - Afr Amer 66 mL/min (>60); Globulin 4.4 g/dL (2.2-4.2); Glucose 143 mg/dL (74-106); Potassium 4.5 mmol/L (3.5-5.1); Protein, Total 7.1 g/dL (6.4-8.2); Sodium Level 135 mmol/L (136-145)
[2024-01-30 02:00] LABS: White Blood Count 49.7 K/mm3 (4.4-11.0)
[2024-01-30 02:01] LABS: Differential Indicated MANUAL DIFF
[2024-01-30 02:03] LABS: Procalcitonin 0.19 ng/mL (0.00-0.09)
[2024-01-30 02:52] LABS: Anisocytosis 1+; Lymphocyte 75 % (19-41); Monocyte 11 % (0-10); Neutrophil-Band 2 % (0-5); Neutrophil-Segmented 10 % (47-70); Nucleated Red Bld Cells,Manual 3 % (0-5); Other WBC Type 2 %; Platelet Estimate ADEQUATE (ADEQ); Reactive Lymphocyte 2+; Total Cells Counted 100 (MANUAL DIFF)
[2024-01-30 02:53] LABS: Stomatocyte 1+
[2024-01-30] MEDS: 0.9% Normal Saline (1000mL) 1,000 ML 200 ML IV ×4 (03:58→18:40)
[2024-01-30] MEDS: Piperacil/Tazobactam 3.375 GM in 0.9% Normal Saline (50mL MB+) 50 ML IV ×3 (05:14→21:13)
--- NOTE | 2024-01-30 06:33 | PN.HOSP_ITS ---
Reason for Visit Reason for Visit: Diagnoses Encephalopathy, unspecified (01/28/24) Heart failure, unspecified (01/28/24) Localized swelling, mass and lump, head (01/28/24) Subjective Subjective Patient's with no acute overnight events per nursing staff, nonverbal this morning with discussions. Staff does report that anytime labs are needed they do need to either sedate or contain him to be able to obtain these which permission was given per his healthcare power of collections attorney which is his brother. Did relay to patient discussions the evening prior with his oncologist Dr. Harkins and plan of care but patient does have reduced mental capacity. Patient without evidence of fevers, chills, nausea, emesis, abdominal pain, chest pain or dyspnea. Objective Data Objective Data Vital Signs: Vital Signs Temp Pulse Resp BP Pulse Ox O2 Del Method 96.9 F L 79 18 109/72 94 Room Air 01/30/24 03:35 01/30/24 03:35 01/30/24 03:35 01/30/24 03:35 01/30/24 03:35 01/30/24 03:35 Oxygen Delivery Method Room Air Weight: 222 lb 7.143 oz Body Mass Index (BMI) 31.0 Intake & Output: Intake and Output for Last 24 Hours 01/28/24 01/29/24 01/30/24 23:59 23:59 23:59 Intake Total 1540 / 1540 2400 / 2630 280 / 280 Balance 1540 / 1540 2400 / 2630 280 / 280 Lab / Micro Data 01/30/24 08:48 01/30/24 06:26 Labs: Laboratory Results - last 24 hr 01/29/24 23:10: WBC 49.7 H*, RBC 3.74 L, Hgb 11.1 L, Hct 33.9 L, MCV 90.6, MCH 29.7, MCHC 32.7, RDW Std Deviation 49.2 H, RDW Coeff of Heath 14.8 H, Plt Count 182, MPV 12.6 H, Neut % (Auto) Not Reportable, Absolute Neuts (auto) 6.0, A bsolute Lymphs (auto) 37.30 H, Total Counted 100, Neutrophils % (Manual) 10 L, Band Neutrophils % 2, Lymphocytes % (Manual) 75 H*, Monocytes % (Manual) 11 H, Other Cells % 2, Nucleated RBCs/100 WBC 3, Diff Path Review May foll, Reactive Lymphocytes 2+, Platelet Estimate ADEQUATE, Anisocytosis 1+, Stomatocytes 1+, S odium 135 L 01/29/24 23:10: Sodium 134 L, Potassium 4.5 01/29/24 23:10: Potassium 4.5, Chloride 101 01/29/24 23:10: Chloride 101, Carbon Dioxide 25.0 01/29/24 23:10: Carbon Dioxide 27.0, Anion Gap 9 01/29/24 23:10: Anion Gap 6, BUN 21 H 01/29/24 23:10: BUN 20 H, Creatinine 1.39 H 01/29/24 23:10: Creatinine 1.46 H, Estim Creat Clear Calc 64.10 01/29/24 23:10: Estim Creat Clear Calc 61.03, Est GFR (MDRD) Af Amer 66 01/29/24 23:10: Est GFR (MDRD) Af Amer 62, Est GFR (MDRD) Non-Af 55 L 01/29/24 23:10: Est GFR (MDRD) Non-Af 52 L, BUN/Creatinine Ratio 15.1 01/29/24 23:10: BUN/Creatinine Ratio 13.7, Glucose 143 H 01/29/24 23:10: Glucose 144 H, Uric Acid 10.7 H, Calcium 8.3 L 01/29/24 23:10: Calcium 8.4 L, Total Bilirubin 0.50, AST 41 H, ALT 32, Alkaline Phosphatase 82, Lactate Dehydrogenase 390 H, Total Protein 7.1, Albumin 2.7 L, G lobulin 4.4 H, Albumin/Globulin Ratio 0.6 L, Procalcitonin 0.19 H, TSH 2.740, Hep Bs Antigen Non-Reactive, Hep Bs Antibody Non-Reactive, Hepatitis C Antibody Non-Reactive, HIV 1&2 Antibody Non-Reactive Micro: Microbiology 01/29/24 07:45 Mucosa - Nasopharyngeal Respiratory Panel (PCR) - Final 01/29/24 06:05 Mucosa - Throat Streptococcus pyogenes (PCR) - Final 01/28/24 13:51 Urine Catheter - Catheter Legionella Antigen - Final 01/28/24 13:51 Urine Catheter - Catheter Streptococcus pneumoniae Antigen (M - Final 01/28/24 12:40 Mucosa - Nose SARS-CoV-2, Influenza & RSV (PCR) - Final Radiography Diagnostic Testing: Radiology Impression Face/Head/Neck MRI 01/29/24 06:34 IMPRESSION: 1. Lobulated enhancing ill-defined mass measuring approximately 3.5 x 2.8 x 3.2 cm involving the left parotid gland visualization of which is somewhat limited due to motion artifacts. In view of the associated extensive cervical adenopathy most likely etiology is non-Hodgkin lymphoma. Other considerations for the parotid mass include pleomorphic adenoma, Warthin''s tumor, adenoid cystic carcinoma and mucoepidermoid carcinoma. 2. Extensive bilateral level I, II, III, IV, , and VII cervical adenopathy. Electronically Signed: Viral Cruz MD at 16:28 EDT , Rhythm Strip Rhythm Strip: Sinus Rhythm Rate: 91 Ectopy: None Physical Exam Narrative Physical Examination: General: Awakens to stimuli, not markedly alert, not answering orientation questions but primarily nonverbal, seated upright in the PCU bed, appears less disheveled. Skin: Normal color, normal turgor, no icterus, no cyanosis except for very stage ecchymoses, occasional abrasion, mild perioral irritation and BL LE chronic lymphedema/venous stasis ulcers with occasional stasis blister with serosanguineous seepage. HEENT: AT/NC, EOMI, PERRLA, lips more moist, still mildly dry MM as keeping mouth chronically open, enlarged left facial parotid region nontender to palpation. Lungs: Diminished, greater bases, poor effort, no rales, ronchi or wheezing. Heart: Currently regular rate with regular rhythm; no gallop, rub audible. Abdomen: Soft, obese, no obvious tenderness to palpation, mildly hyperactive BS, no obvious distention. Extremities: No cyanosis, no clubbing, bilateral lower extremity chronic lymphedema/venous stasis ulcers with occasional stasis blister with serosanguineous seepage. Neurological: Awakens to stimuli, not markedly alert, not answering orientation questions but primarily nonverbal, except to say that he does not have pain to the left side of his face with palpation, fatigued and ill-appearing, cognitive function significantly impaired baseline but decreased from previous baseline secondary to acute presentation; pupils equally reactive to light and accommodation, cranial nerves difficult to assess but appear grossly normal, moving extremities spontaneously, no obvious focal deficits, strength moderately to severely globally decreased. Psychiatric: Affect appears currently calm, becomes very agitated with lab attempts, no acute evidence of depressive or anxiety feelings. Assessment & Plan Assessment/Plan (1) CHF (congestive heart failure): PLAN: Plan The patient is a 64 y/o M w/ PMHx: CLL, HFpEF, HTN, Obesity, CKD stage IIIa, Chronic anemia/iron deficiency anemia, Chronic developmental delay/intellectual disability presents to the [facility] ED on 01/28/24 with history of decreased mentation, increased lethargy over the last 3 to 4 days with onset of left-sided facial swelling with recent diagnosis of pneumonia residing in a shelter with decreased intake and communication unusual to his baseline in addition to incontinence prompting ED evaluation to be cautious. #1. Acute Decompensated HFpEF: Workup in the ED included T97.8, heart rate 78, BP 115/60, respiratory rate 16, 98% on room air with Tmax 99.3, most recent vitals T97.5, heart rate 78, BP 121/60, respiratory rate 18, 93% on room air, CBC with WBC 48.9, hemoglobin 11.7, MCV 90.2, platelet 219 with significant left shift, unremarkable coags, ABG with O2 saturation 90%, PaO2 57, pCO2 37 on room air, CMP with sodium 134, potassium 5.6, BUN/creatinine 27/1.42, GFR 53, magnesium 2.3, lactic acid 1.6, hepatic profile with AST 57 otherwise not marked appearing, total creatinine kinase 42, BNP 42.7, urinalysis unremarkable, chest x-ray with mild pulmonary vascular congestion, CT neck soft tissue with left parotid enlarged and lobulated, possible left parotid mass with diffuse bilateral cervical and mediastinal lymphadenopathy, SARS COVID/influenza/RSV PCR negative, blood culture pending per ED, urine culture pending per ED. In the ED patient ministered 1 L normal saline and DuoNeb therapy. Admitted to PCU, maintained on cardiac telemetry, intially maintained on lasix 40 mg IV daily to be cautious as concern dry upon presentation despite findings on film but BNP not elevated at 43.7 thus 01/29/24 d/c and transitioned back to oral home lasix but d/c overnight 01/30/24 secondary to low normal BPs and need to hydrate for CT C/A/P in the setting of #3., monitor I/Os, maintain on intake restriction, continue medical therapy with aspirin, lisinopril, not on beta-chayo therapy but unclear certain etiology, added statin, magnesium 2.3, TSH 2.740, Mag 2.3. Most recent ECHO noted 09/06/23 with LVEF 65% with normal diastology for age. #2. Recent outpatient pneumonia diagnosis, possibly community-acquired: Recent evaluation at outside facility ED for pneumonia and pulmonary edema 2 days prior, discharged on Z-Salbador at that time, SARS COVID/influenza/RSV negative, Legionella and strep urine antigens negative, full respiratory viral panel negative, requested sputum culture, maintained on broad-spectrum antibiotic therapy with IV vancomycin and IV Zosyn given also parotid mass as noted #3 but appears noninfectious in etiology, MRSA screen requested, continue ATC duonebs, PRN albuterol, HOB, IS parameters w/ pending sputum cultures and procalcitonin #3. 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 Harkins and obtained additional labs including LDH 390, uric acid 10.7, HIV nonreactive, Hep C nonreactive, Hep B nonreactive. Given uric acid elevation patient initiated on allopurinol and IV fluids. Per discussion with oncology in the next 1 to 2 days following allopurinol and IV fluids with renal function monitoring if appropriate will need to obtain CT chest/abdomen/pelvis with IV contrast. Plan currently for bone marrow biopsy under sedation in February secondary to patient's behavioral disturbances and phobia of needles. ENT was consulted upon admission but there is no one on-call until 01/31/2024 Dr. Cast per discussion with tour operator. He will need to be contacted 01/31/24 in AM to review case. #4. Hyperkalemia, mild, admission potassium 5.6, judiciously hydrated initially prior to diuresis initiation as noted, de-escalating, repeat 01/29/2024 potassium 4.5, trending, 01/30/24 CK+ 4.4, trend. #5. Hyponatremia, mild: Admission CMP with sodium 134, possibly secondary to recent poor intake, hypovolemia, initially as noted in the ED very judiciously hydrated given concerns also for concurrent overload, transition from IV Lasix to oral regimen as noted above, continue to trend, 01/30/24 Na 138, trend. #6. Hypertension: Continue home regimen including lisinopril, amlodipine, PRN hydralazine. Initially IV lasix->transitioned back 01/29/24 to oral home regimen, d/c overnight 01/30/24 secondary to low normal BPs and need to hydrate for CT C/A/P in the setting of #3. #7. CLL: Patient with extensive lymphadenopathy including metastatic new lymphadenopathy: Patient with baseline leukocytosis of 30,000, mainly lymphocytosis, encourage continued outpatient follow-up with hematology/oncology as previously arranged. #8. Chronic Kidney Disease Stage IIIa: Admission BUN/Cr 27/1.40, GFR 53, baseline renal function 1.5-1.7 more recently however previous to this his renal function was 0.7-1.1 but changed 08/2023, last noted 09/07/2023 creatinine 1.67, repeat BMP 01/29/2024 BUN/Cr 20/1.46, GFR 52-->01/30/24 BUN/Cr 20/1.38, GFR 56, continue to trend. #9. Chronic normocytic anemia/iron deficiency anemia: Admission hemoglobin 11.7, MCV 90.2, baseline appears primarily 10-12, 01/29/2024 Hgb 11.1, continue iron supplementation, continue CBC trending, 01/30/24 Hgb 11, MCV 89.6, trend. #10. Allergic rhinitis: We will continue patient on fluticasone and loratadine regimen. #11. Chronic developmental delay/intellectual debility: Residing in a shelter, complicates presentation, previously apparently had potentially been living with her father who is recently , brother is his legal guardian, case management/social work consulted. #12. Obesity: Weight loss and lifestyle changes encouraged. #13. GERD: We will continue patient on PPI. #14. DVT prophylaxis: Lovenox. #15. CODE STATUS: DNR-CCA, no intubation status. Charges/Coding Visit Charges Inpatient E&M: [address] [facility] Hosp L3
[2024-01-30] MEDS: Ipratropium/Albuterol Sulfate 3 ML AMPUL.NEB INHALATION ×3 (07:03→20:02)
[2024-01-30 08:54] LABS: Absolute Lymphocyte Count 37.72 X10^3/uL (0.83-4.51); Absolute Neutrophil Count 3.7 X10^3/uL (2.0-7.7); Basophil# 0.21 X10^3/uL; Basophil% 0.5 % (0-1); Eosinophil# 0.02 X10^3/uL; Hematocrit 33.6 % (40-54); Lymphocyte # 37.72 X10^3/ul (0.83-4.51); Lymphocyte % 82.8 % (19-41); Mean Corp Hgb Conc 32.7 g/dL (32-36); Mean Corpuscular Hgb 29.3 pg (27.0-32.0); Mean Corpuscular Volume 89.6 fL (80-94); Mean Platelet Vol. 11.5 fl (6.2-12.0); Monocyte% 7.7 % (0-10); NRBC Flagged by Analyzer 0.5 % (0-5); Neutrophil # 3.69 X10^3/uL (2.7-7.7); Neutrophil % 8.1 % (47-70); POSITIVE COUNT YES; POSITIVE DIFFERENTIAL YES; POSITIVE MORPHOLOGY YES; Platelet Count 168 K/mm3 (150-450); RBC Distribution Width SD 49.4 fl (35.1-43.9); Red Blood Count 3.75 M/mm3 (4.6-6.2); White Blood Count 45.5 K/mm3 (4.4-11.0)
[2024-01-30] MEDS: Aspirin 81 MG TAB.CHEW PO (09:02)
[2024-01-30] MEDS: Pantoprazole Sodium 40 MG Tablet PO ×2 (09:02→21:13)
[2024-01-30] MEDS: Ferrous Sulfate 325 MG Tablet PO ×2 (09:02→17:31)
[2024-01-30] MEDS: Allopurinol 300 MG Tablet PO (09:02)
[2024-01-30] MEDS: Loratadine 10 MG Tablet PO (09:03)
[2024-01-30] MEDS: Nystatin Ointment 1 APPLIC TOPICAL ×2 (09:04→21:14)
[2024-01-30] MEDS: Fluticasone 0.05% 1 SPRAY NASAL.SRY NASAL (09:04)
[2024-01-30] MEDS: Lisinopril 10 MG Tablet PO (09:08)
[2024-01-30] MEDS: amLODIPine 5 MG Tablet PO (09:09)
[2024-01-30 09:12] LABS: ALB/GLOB Ratio 0.6 RATIO (0.9-2.4); AST(SGOT) 41 U/L (15-37); Alanine Aminotransfer ALT/SGPT 31 U/L (16-61); Albumin, Serum 2.6 g/dL (3.2-5.0); Alkaline Phosphatase 77 U/L (45-117); Anion Gap 10 (5-15); BUN 20 mg/dL (7-18); BUN/Creat Ratio 14.7 RATIO (10-20); Calcium,Total 7.9 mg/dL (8.5-10.1); Chloride 106 mmol/L (98-107); Creatinine, Serum 1.36 mg/dL (0.70-1.30); EST Glomerular Filtration Rate 56 mL/min (>60); Est Glom Filt Rate - Afr Amer 68 mL/min (>60); Estimated Creatinine Clearance 65.43 ml/min; Globulin 4.2 g/dL (2.2-4.2); Glucose 95 mg/dL (74-106); Potassium 4.4 mmol/L (3.5-5.1); Protein, Total 6.8 g/dL (6.4-8.2); Sodium Level 138 mmol/L (136-145)
--- NOTE | 2024-01-30 13:45 | PCM.RX.CS ---
Consult Antibiotic Management Pharmacy has been consulted to manage selected antibiotic: Vancomycin Type of Intervention Type of Consult: Follow-up Suspected Infection Suspected Infection: Pneumonia Labs Labs: Sodium 138 mmol/L (136-145) 01/30/24 06:26 Potassium 4.4 mmol/L (3.5-5.1) 01/30/24 06:26 Chloride 106 mmol/L (98-107) 01/30/24 06:26 Carbon Dioxide 22.0 mmol/L (21.0-32.0) 01/30/24 06:26 Anion Gap 10 (5-15) 01/30/24 06:26 BUN 20 mg/dL (7-18) H 01/30/24 06:26 Creatinine 1.36 mg/dL (0.70-1.30) H 01/30/24 06:26 Est GFR (MDRD) Af Amer 68 mL/min (>60) 01/30/24 06:26 Est GFR (MDRD) Non-Af 56 mL/min (>60) L 01/30/24 06:26 BUN/Creatinine Ratio 14.7 RATIO (10-20) 01/30/24 06:26 Glucose 95 mg/dL (74-106) 01/30/24 06:26 Vancomycin Trough 22.0 ug/mL (5.0-15.0) H 01/30/24 06:26 Microbiology Microbiology: Microbiology 01/30/24 10:20 Nasal Secretion MRSA (PCR) - Final 01/28/24 12:40 Blood Culture (Wb) - Anticubital Left Blood Culture - Preliminary No growth in 48 hours. 01/28/24 13:51 Urine, Catheterized Urine Culture - Preliminary Culture exhibits no growth. 01/29/24 07:45 Mucosa - Nasopharyngeal Respiratory Panel (PCR) - Final 01/29/24 06:05 Mucosa - Throat Streptococcus pyogenes (PCR) - Final 01/28/24 13:51 Urine Catheter - Catheter Legionella Antigen - Final 01/28/24 13:51 Urine Catheter - Catheter Streptococcus pneumoniae Antigen (M - Final 01/28/24 12:40 Mucosa - Nose SARS-CoV-2, Influenza & RSV (PCR) - Final Goal Trough Goal Trough: 15-20 mcg/mL Pharmacy Plan for Drug Dosing Pharmacy Plan for Drug Dosing: VANCOMYCIN LEVEL RECEIVED Current Vancomycin Dose: 1000MG Q12H (,19) Number of Doses Received: Vancomycin Level: 22 Hours Since Last Dose: 11.5 HOURS SINCE LAST DOSE Renal Function: SrCr 1.39 Renal Function Trend: SrCr stable Lab/Micro: Vancomycin Plan/Comments: Resulted trough of 22 is greater than the ordered goal trough of 15-20. recommend holding Vancomycin doses for 24 hours then restart at 750mg q12h on 01/31/24 0700. trough on 02/01/24 at 1830 Pending Level: 02/01/24 at 1830 Pharmacy Service will continue to monitor and adjust dosing as required. Follow-Up Labs Follow-Up Labs: Trough: Vancomycin (02/01/24 at 1830)
[2024-01-30] MEDS: Atorvastatin Calcium 40 MG Tablet PO (21:13)
[2024-01-31] VITALS (10 sets, daily range): BP systolic 95–123; BP diastolic 53–69; PULSE 75–88; RESP 12–20; TEMP 36.4–36.7; O2SAT 93–98
[2024-01-31] MEDS: 0.9% Normal Saline (1000mL) 1,000 ML 200 ML IV ×3 (04:05→21:23)
[2024-01-31 06:21] LABS: Absolute Lymphocyte Count 33.04 X10^3/uL (0.83-4.51); Absolute Neutrophil Count 3.3 X10^3/uL (2.0-7.7); Basophil# 0.63 X10^3/uL; Basophil% 1.6 % (0-1); Eosinophil# 0.03 X10^3/uL; Eosinophils% 0.1 % (0-5); Hematocrit 32.5 % (40-54); Hemoglobin 10.7 g/dL (13.0-16.5); Lymphocyte # 33.04 X10^3/ul (0.83-4.51); Lymphocyte % 81.6 % (19-41); Mean Corp Hgb Conc 32.9 g/dL (32-36); Mean Corpuscular Hgb 29.8 pg (27.0-32.0); Mean Corpuscular Volume 90.5 fL (80-94); Mean Platelet Vol. 12.5 fl (6.2-12.0); Monocyte# 3.21 X10^3/uL; Monocyte% 7.9 % (0-10); NRBC Flagged by Analyzer 0 % (0-5); Neutrophil % 8.1 % (47-70); POSITIVE COUNT YES; POSITIVE DIFFERENTIAL YES; POSITIVE MORPHOLOGY YES; Platelet Count 160 K/mm3 (150-450); RBC Distribution Width CV 14.7 % (11.6-14.6); Red Blood Count 3.59 M/mm3 (4.6-6.2)
[2024-01-31 06:29] LABS: Differential Indicated SCAN CRITERIA MET; White Blood Count 40.5 K/mm3 (4.4-11.0)
[2024-01-31 06:45] LABS: ALB/GLOB Ratio 0.5 RATIO (0.9-2.4); AST(SGOT) 46 U/L (15-37); Alanine Aminotransfer ALT/SGPT 28 U/L (16-61); Albumin, Serum 2.2 g/dL (3.2-5.0); Alkaline Phosphatase 75 U/L (45-117); Anion Gap 6 (5-15); BUN 11 mg/dL (7-18); BUN/Creat Ratio 10.1 RATIO (10-20); Calcium,Total 7.4 mg/dL (8.5-10.1); Chloride 107 mmol/L (98-107); Creatinine, Serum 1.09 mg/dL (0.70-1.30); EST Glomerular Filtration Rate 72 mL/min (>60); Est Glom Filt Rate - Afr Amer 87 mL/min (>60); Estimated Creatinine Clearance 81.63 ml/min; Globulin 4.2 g/dL (2.2-4.2); Glucose 80 mg/dL (74-106); Potassium 5.6 mmol/L (3.5-5.1); Protein, Total 6.4 g/dL (6.4-8.2); Sodium Level 135 mmol/L (136-145); Uric Acid 7.6 mg/dL (3.5-7.2)
[2024-01-31] MEDS: Ipratropium/Albuterol Sulfate 3 ML AMPUL.NEB INHALATION ×3 (07:29→19:57)
[2024-01-31] MEDS: Vancomycin HCl 750 MG in 0.9% Normal Saline (250mL Bag) 250 ML 250 MG IV (08:14)
[2024-01-31] MEDS: Fluticasone 0.05% 1 SPRAY NASAL.SRY NASAL (08:31)
[2024-01-31] MEDS: Nystatin Ointment 1 APPLIC TOPICAL ×2 (08:31→21:24)
[2024-01-31] MEDS: Pantoprazole Sodium 40 MG Tablet PO ×2 (08:32→21:21)
[2024-01-31] MEDS: Ferrous Sulfate 325 MG Tablet PO ×2 (08:32→16:01)
[2024-01-31] MEDS: Allopurinol 300 MG Tablet PO (08:32)
[2024-01-31] MEDS: Aspirin 81 MG TAB.CHEW PO (08:32)
[2024-01-31] MEDS: Loratadine 10 MG Tablet PO (08:33)
[2024-01-31 08:36] LABS: Reactive Lymphocyte 1+; Smudge Cells 2+
--- NOTE | 2024-01-31 09:32 | CASEMGMT ---
ELSA called patient's long-term ([phone]) and spoke with Georgiana. Georgiana said patient should be able to return to long-term. Georgiana said if therapy is recommended they do have their own therapy. An order would need to be sent with patient at discharge and they would set it up. When patient is ready for discharge the above number should be called and someone from the long-term will come and tow picker patient. ELSA thanked Claudia for the information. Plan: d/c back to long-term when medically ready. Maggie Medeiros COMMUNICATIONS ASSISTANTMsutapha JEAN BAPTISTE
[2024-01-31] MEDS: Piperacil/Tazobactam 3.375 GM in 0.9% Normal Saline (50mL MB+) 50 ML IV ×3 (10:39→21:23)
[2024-01-31] MEDS: amLODIPine 5 MG Tablet PO (10:46)
[2024-01-31] MEDS: Lisinopril 10 MG Tablet PO (10:46)
--- NOTE | 2024-01-31 11:30 | PHA.PHARE_ITS ---
Consult Antibiotic Management Pharmacy has been consulted to manage selected antibiotic: Vancomycin Type of Intervention Type of Consult: Follow-up Suspected Infection Suspected Infection: Pneumonia Prior Doses of Antibiotics Prior Doses of Antibiotics Received/Current Regimen: 01/28/24 2000MG given @ 191101/28/25 1000mg every 12 hours given @ 0605,1905 01/31/24 750mg every 12 hours given @ 0814 Labs Labs: Sodium 135 mmol/L (136-145) L 01/31/24 05:27 Potassium 5.6 mmol/L (3.5-5.1) H 01/31/24 05:27 Chloride 107 mmol/L (98-107) 01/31/24 05:27 Carbon Dioxide 22.0 mmol/L (21.0-32.0) 01/31/24 05:27 Anion Gap 6 (5-15) 01/31/24 05:27 BUN 11 mg/dL (7-18) 01/31/24 05:27 Creatinine 1.09 mg/dL (0.70-1.30) 01/31/24 05:27 Est GFR (MDRD) Af Amer 87 mL/min (>60) 01/31/24 05:27 Est GFR (MDRD) Non-Af 72 mL/min (>60) 01/31/24 05:27 BUN/Creatinine Ratio 10.1 RATIO (10-20) 01/31/24 05:27 Glucose 80 mg/dL (74-106) 01/31/24 05:27 Vancomycin Trough 22.0 ug/mL (5.0-15.0) H 01/30/24 06:26 Microbiology Microbiology: Microbiology 01/28/24 13:51 Urine, Catheterized Urine Culture - Final Culture exhibits no growth. 01/30/24 10:20 Nasal Secretion MRSA (PCR) - Final 01/28/24 12:40 Blood Culture (Wb) - Anticubital Left Blood Culture - Pr eliminary No growth in 48 hours. 01/29/24 07:45 Mucosa - Nasopharyngeal Respiratory Panel (PCR) - Final 01/29/24 06:05 Mucosa - Throat Streptococcus pyogenes (PCR) - Final 01/28/24 13:51 Urine Catheter - Catheter Legionella Antigen - Final 01/28/24 13:51 Urine Catheter - Catheter Streptococcus pneumoniae Antigen (M - Final 01/28/24 12:40 Mucosa - Nose SARS-CoV-2, Influenza & RSV (PCR) - Final Dosing Weight Weight used for dosin kg Estimated Creatinine Clearance Estimated Creatinine Clearance: 81.6 Goal Trough Goal Trough: 15-20 mcg/mL Pharmacy Plan for Drug Dosing Pharmacy Plan for Drug Dosing: Please continue to administer Vancomycin 750mg every 12 hours until next trough is drawn Pharmacy Service will continue to monitor and adjust dosing as required. Follow-Up Labs Follow-Up Labs: Trough: Vancomycin Date/Time Labs Ordered Labs to be done on [date and time ordered]: 01/31/26 @ 9504
[2024-01-31 11:44] LABS: Pathologist Review Reviewed
[2024-01-31 11:48] LABS: Pathologist Review Reviewed
[2024-01-31 11:51] LABS: Pathologist Review Reviewed
--- NOTE | 2024-01-31 14:50 | CASEMGMT ---
Physician was going to discharge patient so ELSA called Georgiana at the custodial and notified her. Patient went down for a Modified Barium Swallow test so physician is now going to keep patient until tomorrow. ELSA called Georgiana back and notified her of the change. Maggie Medeiros NETWORK PRICING CONSULTANT MARKEL
--- NOTE | 2024-01-31 15:27 | CON.PCM.ID_ITS ---
Assessment & Plan Assessment/Plan (1) Left facial swelling: PLAN: MRI concerning for malignancy. MRSA screen neg. Will stop vanc. Plan on short course zosyn to finish treatment for pneumonia. Will follow, thank you (2) Acute encephalopathy: HPI Consult Data Date of Consult: 01/31/24 HPI Narrative Reason for Consultation: L face mass HPI Narrative: ALLEY FORTE, is a 64 M with CLL, intellectual disability, senior living resident, recently started on abx for pneumonia, sent to ED 01/27 with several days confusion, L face swelling, limited po intake. Full ROS unable to be obtained due to mental status [facility] Medical History Anxiety Kidney disease GERD (gastroesophageal reflux disease) Non-smoker Intellectual disability Melanoma HTN (hypertension) Stasis dermatitis of both legs Ulcer of right lower extremity with fat layer exposed Cellulitis of both lower extremities Edema of both legs Noncompliance Ulcer of left lower leg Home Medications ?Medication ?Instructions ?Recorded ?Last Taken ?Type lisinopril 10 mg tablet 10 mg PO DAILY BP 12/15/16 10/08/21 History amlodipine 5 mg tablet 5 mg PO DAILY #30 tabs 09/09/23 Unknown Rx pantoprazole 40 mg tablet,delayed 40 mg PO BID #0 tabs 09/09/23 Unknown Rx release potassium chloride 20 mEq 20 meq PO BID #30 tabs 09/09/23 Unknown Rx tablet,extended release furosemide 40 mg tablet (Lasix) 40 mg PO DAILY 11/18/23 Unknown History multivitamin 1 tab PO DAILY 11/18/23 Unknown History docusate sodium 100 mg capsule 100 mg PO BID 01/28/24 Unknown History ferrous sulfate 325 mg (65 mg 325 mg PO BID 01/28/24 Unknown History iron) tablet (FeroSul) fluticasone propionate 50 1 spray intranasal DAILY 01/28/24 Unknown History mcg/actuation nasal spray,suspension loratadine 10 mg tablet 10 mg PO DAILY 01/28/24 Unknown History nystatin 100,000 unit/gram topical 1 applic topical BID 01/28/24 Unknown History cream Allergy/AdvReac Type Severity Reaction Status Date / Time No Known Allergies Allergy Verified 01/28/24 11:45 Surgical History History of skin graft H/O melanoma excision Social History Smoking Status: Never smoker Physical Exam Const no apparent distress General Appearance: lethargic HEENT HEENT Narrative: L face swelling Eyes PERRL and EOMs intact bilaterally Neck supple and No nodes Resp Auscultation: wheezes Cardio regular rate and regular rhythm GI soft to palpation, non-tender and non-distended Extremity General Extremity: edema Skin no rashes or lesions noted Neuro CN's II-XII intact bilaterally Lab / Micro Data Attestation: I reviewed the patient's lab results. 01/31/24 05:27 01/31/24 05:27 Labs: Laboratory Results - last 24 hr 01/28/24 12:40: Diff Path Review Reviewed 01/29/24 23:10: Diff Path Review Reviewed 01/30/24 08:48: Diff Path Review Reviewed 01/31/24 05:27: WBC 40.5 H*, RBC 3.59 L, Hgb 10.7 L, Hct 32.5 L, MCV 90.5, MCH 29.8, MCHC 32.9, RDW Std Deviation 49.0 H, RDW Coeff of Heath 14.7 H, Plt Count 160, MPV 12.5 H, Immature Gran % (Auto) 0.700, Neut % (Auto) 8.1 L, Lymph % (Auto) 81.6 H, [place] % (Auto) 7.9, Eos % (Auto) 0.1, Baso % (Auto) 1.6 H, Absolute Neuts (auto) 3.3, Absolute Lymphs (auto) 33.04 H, Nucleated RBC % 0, Diff Path Review May foll, Reactive Lymphocytes 1+, Smudge Cells 2+, Sodium 135 L, Potassium 5.6 H, Chloride 107, Carbon Dioxide 22.0, Anion Gap 6, BUN 11, Creatinine 1.09, Estim Creat Clear Calc 81.63, Est GFR (MDRD) Af Amer 87, Est GFR (MDRD) Non-Af 72, BUN/Creatinine Ratio 10.1, Glucose 80, Uric Acid 7.6 H, C alcium 7.4 L, Total Bilirubin 0.40, AST 46 H, ALT 28, Alkaline Phosphatase 75, Total Protein 6.4, Albumin 2.2 L, Globulin 4.2, Albumin/Globulin Ratio 0.5 L Micro: Microbiology 01/28/24 13:51 Urine, Catheterized Urine Culture - Final Culture exhibits no growth. 01/30/24 10:20 Nasal Secretion MRSA (PCR) - Final Rhythm Strip Rhythm Strip: Sinus Rhythm Rate: 91 Ectopy: None
--- NOTE | 2024-01-31 15:31 | SP.MBSS_ITS ---
Modified Barium Swallow Patient Information Study Date: 01/31/24 Study Time: 14:45 Direct Billable Minutes: 51 Total Minutes procedure & reportin Diagnosis: CHF I50.9 Referring Physician: Ritesh Cartwright Reason for Referral: Objectively assess swallow function, assess risk for aspiration, and determine recommendations for least restrictive diet textures and compensatory strategies to improve safety of swallow. Medical History: The patient is a care home resident who was brought to [facility] ED by EMS from [facility] office for AMS. Patient has developmental delay/intellectual disability and lives in a care home. Patient was not eating or drinking for the 3 days prior to admission and was not talking or communicating. He also presented with L sided facial swelling and was incontinent. Patient was admitted to PCU for management of acute encephalopathy, L facial swelling, and CHF amongst other comorbidities. Of note, he also had recent PNA. He was referred for ST consult due to concern for dysphagia. BSE 01/29/24 recommended the patient for soft and bite size textures / thin liquids. MBSS recommended during POC to further assess aspiration risk due to coughing with oral intake trials with [employer]. PMH: Stasis dermatitis of both legs, Ulcer of right lower extremity with fat layer exposed, Intellectual disability, Melanoma, HTN, Cellulitis of both lower extremities, Edema of both legs, Noncompliance, Ulcer of left lower leg. Current Diet Ordered: Soft and bite size textures / Thin liquids Dentition: Natural Teeth and Missing Teeth Mental Status: Impaired Respiratory Status: Oxygenating on Room Air Penetration-Aspiration Scale Penetration-Aspiration Scale: OBJECTIVE ASSESSMENT OF SWALLOW FUNCTION (QUANTITATIVE ? PER TRIAL): PENETRATION / ASPIRATION SCALE (RICHTER): 1 = does not enter airway 2 = enters airway/above vocal folds/ejected 3 = enters airway/above vocal folds/not ejected 4 = enters airway/contacts vocal folds/ejected 5 = enters airway/contacts vocal folds/not ejected 6 = enters airway/below vocal folds/ejected 7 = enters airway/below vocal folds/not ejected despite effort 8 = enters airway/below vocal folds/no effort VIDEOFLOROSCOPIC SCALE SCORE (RICHTER): Grade I = aspiration of material that has penetrated into the laryngeal vestibule, intact cough reflex Grade II = aspiration < 10 % of the bolus, intact cough reflex Grade III = aspiration of < 10 % of the bolus, reduced cough reflex or aspiration of > 10 % of the bolus, intact cough reflex Grade IV = aspiration of > 10 % of the bolus, reduced cough reflex Penetration-Aspiration Scale Score Thin Liquid via teaspoon: Result: 1= does not enter airway Thin Liquid via teaspoon Trial 2: Result: 2= enter airway/above vocal folds/ejected Comment: Patient refused all additional trials. Coughing occurred following this trial; however, the patient's laryngeal vestibule and trachea appeared clear of barium contrast when fluoroscopy was turned on. Oral Phase Labial Seal: No Labial Escape Tongue Control During Bolus Hold: Posterior escape of greater than half of bolus Bolus Transport/Lingual Motion: Delayed initiation of tongue motion Oral Residue: Trace residue lining oral structures Pharyngeal Phase Initiation of Pharyngeal Swallow: Bolus head in pyriforms Soft Palate Elevation: No bolus between soft palate and pharyngeal wall Laryngeal Elevation: Comp. Superior move thyroid cart w/comp. apprx arytenoid cart-epig pet Anterior Hyoid Excursion: Partial anterior movement Epiglottic Movement: Complete inversion Laryngeal Vestibule Closure at Height of Swallow: Incomplete; narrow column of air/contrast in laryngeal vestibule Pharyngeal Stripping Wave: Present - complete Pharyngoesophageal Segment Opening: Complete distension and complete duration; no obstruction of flow Tongue Base Retraction: Trace column of contrast between tongue base & post. pharyngeal wall Pharyngeal Residue: Trace residue within or on pharyngeal structures Diagnosis/Impression Diagnosis: Mild-moderate oropharyngeal dysphagia R13.12 Impression: Limited trials were completed due to patient refusal despite maximum encouragement from [employer]. The oral phase is primarily marked by... -Decreased bolus control with posterior loss of >1/2 the trial to the pyriform sinuses prior to swallow onset. -Delayed tongue motion for A-P transport. -Unable to assess mastication due to refusal of cookie. The pharyngeal phase is primarily marked by... -Delayed swallow onset. -Decreased anterior hyoid excursion w/ laryngeal penetration of thin liquids via tsp, which fully ejected after the swallow. Coughing occurred after laryngeal penetration; however, laryngeal vestibule and trachea appeared to be clear of barium contrast. Recommendations Diet: Mechanical Soft Textures (Soft and bite size textures - IDDSI Level 6) and Thin Liquids Compensatory Strategies: Small Bites, Small Sips, Slow Rate, Sitting upright and Remain sitting upright for 30 minutes after PO intake Supervision: Assist as needed Recommend Repeat Modified Barium Swallow: TBD (Only if patient is more agreeable to trials of barium.) Need for Skilled Speech Therapy Services: Yes Comment: Continued ST recommended for the following: -Training patient and staff in strategies to decrease risk for aspiration. Please consider bolus control cup (10cc) if the patient is not reliably able to control rate of drinking. -Ongoing assessment of diet tolerance at bedside with monitoring of lung sounds and respiratory status. Education Completed: 1. Described result of evaluation. and 7. Pt requires further education on strategies & risks. Status Active ST Patient: Active Contact Information [facility] Speech Therapy:: Eli Isaacs M.A. CCC-[employer]? Speech-Language Pathologist?? [facility] [address] [place] [address]? [email or web address]?? [phone]
--- NOTE | 2024-01-31 16:27 | PN.HOSP_ITS ---
Subjective Subjective Seems back to his baseline, he does have a large parotid mass on the left Objective Data Objective Data Vital Signs: Vital Signs Temp Pulse Resp BP Pulse Ox O2 Del Method 97.6 F L 84 18 108/67 94 Room Air 01/31/24 16:10 01/31/24 16:10 01/31/24 16:10 01/31/24 16:10 01/31/24 16:10 01/31/24 16:10 Oxygen Delivery Method Room Air Weight: 221 lb 12.56 oz Body Mass Index (BMI) 30.9 Intake & Output: Intake and Output for Last 24 Hours 01/30/24 01/31/24 02/01/24 03:59 03:59 03:59 Intake Total 1680 / 1680 4220.00 / 4220.00 2571.67 / 2571.67 Output Total 1400 / 1400 1200 / 1200 Balance 1680 / 1680 2820.00 / 2820.00 1371.67 / 1371.67 Lab / Micro Data 01/31/24 05:27 01/31/24 05:27 Labs: Laboratory Results - last 24 hr 01/28/24 12:40: Diff Path Review Reviewed 01/29/24 23:10: Diff Path Review Reviewed 01/30/24 08:48: Diff Path Review Reviewed 01/31/24 05:27: WBC 40.5 H*, RBC 3.59 L, Hgb 10.7 L, Hct 32.5 L, MCV 90.5, MCH 29.8, MCHC 32.9, RDW Std Deviation 49.0 H, RDW Coeff of Heath 14.7 H, Plt Count 160, MPV 12.5 H, Immature Gran % (Auto) 0.700, Neut % (Auto) 8.1 L, Lymph % (Auto) 81.6 H, Glenn % (Auto) 7.9, Eos % (Auto) 0.1, Baso % (Auto) 1.6 H, Absolute Neuts (auto) 3.3, Absolute Lymphs (auto) 33.04 H, Nucleated RBC % 0, Diff Path Review May foll, Reactive Lymphocytes 1+, Smudge Cells 2+, Sodium 135 L, Potassium 5.6 H, Chloride 107, Carbon Dioxide 22.0, Anion Gap 6, BUN 11, Creatinine 1.09, Estim Creat Clear Calc 81.63, Est GFR (MDRD) Af Amer 87, Est GFR (MDRD) Non-Af 72, BUN/Creatinine Ratio 10.1, Glucose 80, Uric Acid 7.6 H, C alcium 7.4 L, Total Bilirubin 0.40, AST 46 H, ALT 28, Alkaline Phosphatase 75, Total Protein 6.4, Albumin 2.2 L, Globulin 4.2, Albumin/Globulin Ratio 0.5 L Micro: Microbiology 01/28/24 13:51 Urine, Catheterized Urine Culture - Final Culture exhibits no growth. 01/30/24 10:20 Nasal Secretion MRSA (PCR) - Final 01/28/24 12:40 Blood Culture (Wb) - Anticubital Left Blood Culture - Preliminary No growth in 48 hours. 01/29/24 07:45 Mucosa - Nasopharyngeal Respiratory Panel (PCR) - Final 01/29/24 06:05 Mucosa - Throat Streptococcus pyogenes (PCR) - Final 01/28/24 13:51 Urine Catheter - Catheter Legionella Antigen - Final 01/28/24 13:51 Urine Catheter - Catheter Streptococcus pneumoniae Antigen (M - Final 01/28/24 12:40 Mucosa - Nose SARS-CoV-2, Influenza & RSV (PCR) - Final Rhythm Strip Rhythm Strip: Sinus Rhythm Rate: 91 Ectopy: None Physical Exam Narrative General: Alert, cooperative, No apparent distress HEENT: Atraumatic, PERRLA, EOMI, Normocephalic, left parotid mass Oral: Moist Mucosa Neck: Supple, No JVD Lungs: Diminished, Normal air movement, No rhonchi, No wheeze, No rales Cardiovascular: Regular rate, Regular Rhythm, Normal S1, Normal S2, No murmurs Abdomen: Soft, Non Tender, Non-Distended, No Hepato-splenomegaly Extremities: No edema, Capillary Refill Less than 3 Seconds Skin: No rashes, No breakdown Musculoskeletal: No Tenderness to Palpation of Joints or Extremities Neurological: No focal neurological deficits, Motor Exam 5/5 strength throughout, Sensory exam intact to light touch and pain Psych/Mental Status: Normal Affect, Appropriate Assessment & Plan Assessment/Plan (1) CHF (congestive heart failure): PLAN: Plan #1. Chronic HFpEF: Workup in the ED included T97.8, heart rate 78, BP 115/60, respiratory rate 16, 98% on room air with Tmax 99.3, most recent vitals T97.5, heart rate 78, BP 121/60, respiratory rate 18, 93% on room air, CBC with WBC 48.9, hemoglobin 11.7, MCV 90.2, platelet 219 with significant left shift, unremarkable coags, ABG with O2 saturation 90%, PaO2 57, pCO2 37 on room air, CMP with sodium 134, potassium 5.6, BUN/creatinine 27/1.42, GFR 53, magnesium 2.3, lactic acid 1.6, hepatic profile with AST 57 otherwise not marked appearing, total creatinine kinase 42, BNP 42.7, urinalysis unremarkable, chest x-ray with mild pulmonary vascular congestion, CT neck soft tissue with left parotid enlarged and lobulated, possible left parotid mass with diffuse bilateral cervical and mediastinal lymphadenopathy, SARS COVID/influenza/RSV PCR negative, blood culture pending per ED, urine culture pending per ED. In the ED patient ministered 1 L normal saline and DuoNeb therapy. Admitted to PCU, maintained on cardiac telemetry, intially maintained on lasix 40 mg IV daily to be cautious as concern dry upon presentation despite findings on film but BNP not elevated at 43.7 thus 01/29/24 d/c and transitioned back to oral home lasix but d/c overnight 01/30/24 secondary to low normal BPs and need to hydrate for CT C/A/P in the setting of #3., monitor I/Os, maintain on intake restriction, continue medical therapy with aspirin, lisinopril, not on beta-chayo therapy but unclear certain etiology, added statin, magnesium 2.3, TSH 2.740, Mag 2.3. Most recent ECHO noted 09/06/23 with LVEF 65% with normal diastology for age. 01/31/2024: CHF does not appear to be a significant component of his his admission or altered mental status as he was not requiring Lasix #2. Recent outpatient pneumonia diagnosis, possibly community-acquired: Recent evaluation at outside facility ED for pneumonia and pulmonary edema 2 days prior, discharged on Z-Salbador at that time, SARS COVID/influenza/RSV negative, Legionella and strep urine antigens negative, full respiratory viral panel negative, requested sputum culture, maintained on broad-spectrum antibiotic therapy with IV vancomycin and IV Zosyn given also parotid mass as noted #3 but appears noninfectious in etiology, MRSA screen requested, continue ATC duonebs, PRN albuterol, HOB, IS parameters w/ pending sputum cultures and procalcitonin 01/31/2024: Appreciate infectious disease assistance will continue Zosyn for 1 more day especially given that his encephalopathy has resolved #3. 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 Harkins and obtained additional labs including LDH 390, uric acid 10.7, HIV nonreactive, Hep C nonreactive, Hep B nonreactive. Given uric acid elevation patient initiated on allopurinol and IV fluids. Per discussion with oncology in the next 1 to 2 days following allopurinol and IV fluids with renal function monitoring if appropriate will need to obtain CT chest/abdomen/pelvis with IV contrast. Plan currently for bone marrow biopsy under sedation in February secondary to patient's behavioral disturbances and phobia of needles. ENT was consulted upon admission but there is no one on-call until 01/31/2024 Dr. Cast per discussion with explosive operator fuse. He will need to be contacted 01/31/24 in AM to review case. 01/31/2024: This is a known issue with ENT they have biopsied in the past recommend outpatient follow-up on discharge #4. Hyperkalemia, mild, admission potassium 5.6, judiciously hydrated initially prior to diuresis initiation as noted, de-escalating, repeat 01/29/2024 potassium 4.5, trending, 01/30/24 CK+ 4.4, trend. #5. Hyponatremia, mild: Admission CMP with sodium 134, possibly secondary to recent poor intake, hypovolemia, initially as noted in the ED very judiciously hydrated given concerns also for concurrent overload, transition from IV Lasix to oral regimen as noted above, continue to trend, 01/30/24 Na 138, trend. #6. Hypertension: Continue home regimen including lisinopril, amlodipine, PRN hydralazine. Initially IV lasix->transitioned back 01/29/24 to oral home regimen, d/c overnight 01/30/24 secondary to low normal BPs and need to hydrate for CT C/A/P in the setting of #3. #7. CLL: Patient with extensive lymphadenopathy including metastatic new lymphadenopathy: Patient with baseline leukocytosis of 30,000, mainly lymphocytosis, encourage continued outpatient follow-up with hematology/oncology as previously arranged. #8. Chronic Kidney Disease Stage IIIa: Admission BUN/Cr 27/1.40, GFR 53, baseline renal function 1.5-1.7 more recently however previous to this his renal function was 0.7-1.1 but changed 08/2023, last noted 09/07/2023 creatinine 1.67, repeat BMP 01/29/2024 BUN/Cr 20/1.46, GFR 52-->01/30/24 BUN/Cr 20/1.38, GFR 56, continue to trend. #9. Chronic normocytic anemia/iron deficiency anemia: Admission hemoglobin 11.7, MCV 90.2, baseline appears primarily 10-12, 01/29/2024 Hgb 11.1, continue iron supplementation, continue CBC trending, 01/30/24 Hgb 11, MCV 89.6, trend. #10. Allergic rhinitis: We will continue patient on fluticasone and loratadine regimen. #11. Chronic developmental delay/intellectual debility: Residing in a [place] [facility] [place], complicates presentation, previously apparently had potentially been living with her father who is recently , brother is his legal guardian, case management/social work consulted. #12. Obesity: Weight loss and lifestyle changes encouraged. #13. GERD: We will continue patient on PPI. DVT: Lovenox Charges/Coding Visit Charges Inpatient E&M: 02886 Subs Hosp L2
[2024-01-31] MEDS: Atorvastatin Calcium 40 MG Tablet PO (21:22)
[2024-02-01 03:00] VITALS: BP 115/68; PULSE 87; RESP 18; TEMP 37.2; O2SAT 95
[2024-02-01 04:40] VITALS: BMI 31.0
[2024-02-01] MEDS: 0.9% Normal Saline (1000mL) 1,000 ML 100 ML IV (05:01)
[2024-02-01] MEDS: Piperacil/Tazobactam 3.375 GM in 0.9% Normal Saline (50mL MB+) 50 ML IV (05:01)
[2024-02-01 09:00] VITALS: BP 115/71; PULSE 79; RESP 18; TEMP 36.4; O2SAT 97
[2024-02-01] MEDS: Fluticasone 0.05% 1 SPRAY NASAL.SRY NASAL (09:10)
[2024-02-01] MEDS: Nystatin Ointment 1 APPLIC TOPICAL (09:10)
[2024-02-01] MEDS: Allopurinol 300 MG Tablet PO (09:11)
[2024-02-01] MEDS: Aspirin 81 MG TAB.CHEW PO (09:11)
[2024-02-01] MEDS: Lisinopril 10 MG Tablet PO (09:11)
[2024-02-01] MEDS: Loratadine 10 MG Tablet PO (09:11)
[2024-02-01] MEDS: Ferrous Sulfate 325 MG Tablet PO (09:11)
[2024-02-01] MEDS: Pantoprazole Sodium 40 MG Tablet PO (09:11)
[2024-02-01] MEDS: amLODIPine 5 MG Tablet PO (09:11)
--- NOTE | 2024-02-01 10:10 | PCM.PN.ID ---
Physical Exam Narrative Feeling better, no trouble breathing, no fever overnight Const alert and no apparent distress General Appearance: cooperative Resp normal air movement and clear to auscultation bilaterally Cardio regular rate and regular rhythm GI soft to palpation, non-tender and non-distended Skin no rashes or lesions noted ID ID: Route of nutrition/ use of supplements: [] Nutritional Intake: [] IV Site: [] Negron Catheter: [] Assessment & Plan Assessment/Plan (1) Left facial swelling: PLAN: MRI concerning for malignancy, had recent abscess at site per primary team discussion with ENT. MRSA screen neg. Will stop zosyn today. Will follow as needed (2) Acute encephalopathy:
--- NOTE | 2024-02-01 12:26 | CASEMGMT ---
Social Work Physician plans to discharge pt back to the skilled nursing today. ELSA called Georgiana at the skilled nursing, she will come get pt today, SW just needs to let her know once he is discharged, and would like his discharge instructions faxed over: [phone]. MARC Pradhan
--- NOTE | 2024-02-01 13:47 | DCINST_ITS ---
Discharge Instructions Diet Discharge Diet: Low fat / Low cholesterol Activity Discharge Activity: Return to Normal Activity Dressing / Incision Call your doctor if you observe: Fever of 101 or Higher, Shortness of breath, Dizziness, Fainting spells, Swelling in the ankles, Chest pain and Increased palpitations (irregular heartbeat) Follow Up Care Test Results: Test results from this visit will be discussed in further detail at your follow- up appointment, if applicable. Discharge Plan Admission Admit Date/Time: 01/28/24 15:50 Attending Provider: Ritesh Cartwright Primary Care Provider: Anthony Vang Consulting Providers: Oz Lara; Liat Charles; Zack Royal; Berhane Cast Instructions Additional Instructions / Restrictions: Home PT/OT Discharge Orders/Prescriptions Prescriptions: New allopurinol 300 mg Tablet 300 mg PO DAILYCM 30 Days Qty: 30 0RF Continued lisinopril 10 MG tablet 10 mg PO DAILY Patient Comments: Blood pressure pantoprazole 40 mg Tablet,Delayed Release (Dr/Ec) 40 mg PO BID Qty: 0 0RF amlodipine 5 mg tablet 5 mg PO DAILY Qty: 30 0RF ferrous sulfate [FeroSul] 325 mg (65 mg iron) tablet 325 mg PO BID docusate sodium 100 mg capsule 100 mg PO BID fluticasone propionate 50 mcg/actuation spray,suspension 1 spray INTRANASAL DAILY Patient Comments: [NO ORIGINAL SIG] nystatin 100,000 unit/gram cream 1 applic topical BID loratadine 10 mg tablet 10 mg PO DAILY furosemide [Lasix] 40 mg tablet 40 mg PO DAILY multivitamin Tablet 1 tab PO DAILY Held potassium chloride 20 mEq tablet extended release 20 meq PO BID Qty: 30 0RF Hold Instructions: Resume on 02/05/24. Referrals / Follow Up: Anthony Vang MD [Primary Care Provider] - Within 1 Week Berhane Cast MD [Med Staff - Active Staff] - Within 2 Weeks Disposition Disposition (needs filled in before D/C Order can be placed): Home, Self Care
[2024-02-01 13:48] LABS: Pathologist Review Reviewed
--- NOTE | 2024-02-01 14:15 | CASEMGMT ---
Social Work SW spoke w/Georgiana at pt's senior living, she will be here about 4pm to picker operator pt. Physician did add for pt to get therapy at the senior living, ELSA let Georgiana know, faxed over the discharge instructions. ELSA called pt's brother/Guardian Huy Alonso and let him know pt will return to the senior living today, Georgiana will pick him up about 4pm, and that the doctor ordered home therapy again for pt. Pt's brother agreeable to discharge. No further needs, pt back to senior living today. Pt's RN also aware of pickup time. MARC Pradhan
--- NOTE | 2024-02-01 14:56 | NURSING ---
Report called to nurse Tirado for pt to be d/c back to his long term.
[2024-02-01 14:58] VITALS: BP 115/71; PULSE 79; RESP 18; TEMP 36.4; O2SAT 97
--- NOTE | 2024-02-01 18:01 | PCM.DC.SUM ---
Providers Date of Admission: 01/28/24 Date of Discharge: 02/01/24 Primary Care Physician: Dr. Anthony Vang MD Consultations 01/28/24 18:34 Consult: ENT Routine Consulting Provider: Berhane Cast Reason for Consult: Left parotid region swelling/infection EMERGENT Consult: No MD Notified: Yes Date Notified: 01/28/24 Time Notified: 11:13 Method of Notification: Verbal 01/30/24 10:51 Consult: Infectious Disease Routine Consulting Provider: Zack Royal Reason for Consult: PNA, poss GN/GP, failed outpatient abx, complicated by CA, parotid mass EMERGENT Consult: No MD Notified: Yes Date Notified: 01/31/24 Time Notified: 07:47 Method of Notification: Text Reason For Visit: AMS Diagnosis Discharge Diagnosis (1) Left facial swelling: Status: Acute Code(s): R22.0 - Localized swelling, mass and lump, head (2) Acute encephalopathy: Status: Acute Code(s): G93.40 - Encephalopathy, unspecified Medications at Discharge Home Medications lisinopril 10 mg tablet 10 mg PO DAILY BP 12/15/16 amlodipine 5 mg tablet 5 mg PO DAILY #30 tabs 09/09/23 pantoprazole 40 mg tablet,delayed release 40 mg PO BID #0 tabs 09/09/23 potassium chloride 20 mEq tablet,extended release 20 meq PO BID #30 tabs 09/09/23 furosemide 40 mg tablet (Lasix) 40 mg PO DAILY 11/18/23 multivitamin 1 tab PO DAILY 11/18/23 docusate sodium 100 mg capsule 100 mg PO BID 01/28/24 ferrous sulfate 325 mg (65 mg iron) tablet (FeroSul) 325 mg PO BID 01/28/24 fluticasone propionate 50 mcg/actuation nasal spray,suspension 1 spray intranasal DAILY 01/28/24 loratadine 10 mg tablet 10 mg PO DAILY 01/28/24 nystatin 100,000 unit/gram topical cream 1 applic topical BID 01/28/24 allopurinol 300 mg tablet 300 mg PO DAILYCM 30 days #30 tabs 02/01/24 Hospital Course Operations None Procedures None Summary of Care Provided Minutes Spent on Discharge: 36 Hospital Course: Per HPI: ALLEY FORTE, is a 64 M custodial resident was brought to ED by EMS from [facility] for altered mental status. Patient has developmental delay/intellectual disability and lives in custodial. I talked to the healthcare personnel from the custodial presented near the bedside. She said that he is not eating or drinking for last 3 days along with not talking or communicating. Usually his baseline he talks. He is also incontinent. He is not responding like he usually does. Patient also has left-sided facial swelling. Therefore he was sent to ED. As per the EMS report, patient was able to say yes or no questions appropriately but to me he did not even utter single word. He is awake. History mainly taken from the health aide from custodial, nursing staff and ED physician and EMS documentation. EMS vitals show BP 111/60, pulse 90, RR 16 to 18/min. Pulse ox 97% on room air. In ED, patient had basic lab work. Patient is CLL and has high lymphocyte count mainly lymphocytosis but is more than his baseline. ABG 7.[address] neck was done at my request to evaluate left facial swelling and discussed further in assessment plan. Hospital Course: #1. Chronic HFpEF: Workup in the ED included T97.8, heart rate 78, BP 115/60, respiratory rate 16, 98% on room air with Tmax 99.3, most recent vitals T97.5, heart rate 78, BP 121/60, respiratory rate 18, 93% on room air, CBC with WBC 48.9, hemoglobin 11.7, MCV 90.2, platelet 219 with significant left shift, unremarkable coags, ABG with O2 saturation 90%, PaO2 57, pCO2 37 on room air, CMP with sodium 134, potassium 5.6, BUN/creatinine 27/1.42, GFR 53, magnesium 2.3, lactic acid 1.6, hepatic profile with AST 57 otherwise not marked appearing, total creatinine kinase 42, BNP 42.7, urinalysis unremarkable, chest x-ray with mild pulmonary vascular congestion, CT neck soft tissue with left parotid enlarged and lobulated, possible left parotid mass with diffuse bilateral cervical and mediastinal lymphadenopathy, SARS COVID/influenza/RSV PCR negative, blood culture pending per ED, urine culture pending per ED. In the ED patient ministered 1 L normal saline and DuoNeb therapy. Admitted to PCU, maintained on cardiac telemetry, intially maintained on lasix 40 mg IV daily to be cautious as concern dry upon presentation despite findings on film but BNP not elevated at 43.7 thus 01/29/24 d/c and transitioned back to oral home lasix but d/c overnight 01/30/24 secondary to low normal BPs and need to hydrate for CT C/A/P in the setting of #3., monitor I/Os, maintain on intake restriction, continue medical therapy with aspirin, lisinopril, not on beta-chayo therapy but unclear certain etiology, added statin, magnesium 2.3, TSH 2.740, Mag 2.3. Most recent ECHO noted 09/06/23 with LVEF 65% with normal diastology for age. 01/31/2024: CHF does not appear to be a significant component of his his admission or altered mental status as he was not requiring Lasix 02/01/2024: Will continue with Lasix on discharge #2. Recent outpatient pneumonia diagnosis, possibly community-acquired: Recent evaluation at outside facility ED for pneumonia and pulmonary edema 2 days prior, discharged on Z-Salbador at that time, SARS COVID/influenza/RSV negative, Legionella and strep urine antigens negative, full respiratory viral panel negative, requested sputum culture, maintained on broad-spectrum antibiotic therapy with IV vancomycin and IV Zosyn given also parotid mass as noted #3 but appears noninfectious in etiology, MRSA screen requested, continue ATC duonebs, PRN albuterol, HOB, IS parameters w/ pending sputum cultures and procalcitonin 01/31/2024: Appreciate infectious disease assistance will continue Zosyn for 1 more day especially given that his encephalopathy has resolved 02/01/2024: Completed Zosyn and he does appear to be back down to his baseline mentation. He does only ever answer questions yes or no. There was an attempt to get a cookie swallow on 01/31/2024 however he did not comply with the protocol even though he is able to eat so this was canceled. Recommend speech therapy at the custodial as an outpatient if possible. Plan for discharge today #3. 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 Harkins and obtained additional labs including LDH 390, uric acid 10.7, HIV nonreactive, Hep C nonreactive, Hep B nonreactive. Given uric acid elevation patient initiated on allopurinol and IV fluids. Per discussion with oncology in the next 1 to 2 days following allopurinol and IV fluids with renal function monitoring if appropriate will need to obtain CT chest/abdomen/pelvis with IV contrast. Plan currently for bone marrow biopsy under sedation in February secondary to patient's behavioral disturbances and phobia of needles. ENT was consulted upon admission but there is no one on-call until 01/31/2024 Dr. Cast per discussion with [employer] operator. He will need to be contacted 01/31/24 in AM to review case. 01/31/2024: This is a known issue with ENT they have biopsied in the past recommend outpatient follow-up on discharge 02/01/2024: Outpatient follow-up for possible repeat biopsy with ENT, also benefit from following up with oncology. He was found to have an elevated uric acid so he was discharged on allopurinol #4. Hyperkalemia, mild, admission potassium 5.6, judiciously hydrated initially prior to diuresis initiation as noted, de-escalating, repeat 01/29/2024 potassium 4.5, trending, 01/30/24 CK+ 4.4, trend. 02/01/2024: Outpatient monitoring for his potassium of 5.6, his oral potassium will be placed on hold on discharge pending follow-up with his PCP #5. Hyponatremia, mild: Admission CMP with sodium 134, possibly secondary to recent poor intake, hypovolemia, initially as noted in the ED very judiciously hydrated given concerns also for concurrent overload, transition from IV Lasix to oral regimen as noted above, continue to trend, 01/30/24 Na 138, trend. #6. Hypertension: Continue home regimen including lisinopril, amlodipine, PRN hydralazine. Initially IV lasix->transitioned back 01/29/24 to oral home regimen, d/c overnight 01/30/24 secondary to low normal BPs and need to hydrate for CT C/A/P in the setting of #3. #7. CLL: Patient with extensive lymphadenopathy including metastatic new lymphadenopathy: Patient with baseline leukocytosis of 30,000, mainly lymphocytosis, encourage continued outpatient follow-up with hematology/oncology as previously arranged. #8. Chronic Kidney Disease Stage IIIa: Admission BUN/Cr 27/1.40, GFR 53, baseline renal function 1.5-1.7 more recently however previous to this his renal function was 0.7-1.1 but changed 08/2023, last noted 09/07/2023 creatinine 1.67, repeat BMP 01/29/2024 BUN/Cr 20/1.46, GFR 52-->01/30/24 BUN/Cr 20/1.38, GFR 56, continue to trend. #9. Chronic normocytic anemia/iron deficiency anemia: Admission hemoglobin 11.7, MCV 90.2, baseline appears primarily 10-12, 01/29/2024 Hgb 11.1, continue iron supplementation, continue CBC trending, 01/30/24 Hgb 11, MCV 89.6, trend. #10. Allergic rhinitis: We will continue patient on fluticasone and loratadine regimen. #11. Chronic developmental delay/intellectual debility: Residing in a custodial, complicates presentation, previously apparently had potentially been living with her father who is recently , brother is his legal guardian, case management/social work consulted. #12. Obesity: Weight loss and lifestyle changes encouraged. #13. GERD: We will continue patient on PPI. Physical Exam Narrative General: Alert, cooperative, No apparent distress HEENT: Atraumatic, PERRLA, EOMI, Normocephalic, left parotid mass Oral: Moist Mucosa Neck: Supple, No JVD Lungs: Diminished, Normal air movement, No rhonchi, No wheeze, No rales Cardiovascular: Regular rate, Regular Rhythm, Normal S1, Normal S2, No murmurs Abdomen: Soft, Non Tender, Non-Distended, No Hepato-splenomegaly Extremities: No edema, Capillary Refill Less than 3 Seconds Skin: No rashes, No breakdown Musculoskeletal: No Tenderness to Palpation of Joints or Extremities Neurological: No focal neurological deficits, Motor Exam 5/5 strength throughout, Sensory exam intact to light touch and pain Psych/Mental Status: Normal Affect, Appropriate Weight / BMI Weight Weight: 222 lb 10.67 oz Body Mass Index (BMI) 31.0 ABG / Lab / Microbiology Data 01/31/24 05:27 01/31/24 05:27 Laboratory: Laboratory Results - last 24 hr 01/31/24 05:27: Diff Path Review Reviewed Microbiology: Microbiology 01/28/24 13:51 Urine, Catheterized Urine Culture - Final Culture exhibits no growth. 01/30/24 10:20 Nasal Secretion MRSA (PCR) - Final 01/28/24 12:40 Blood Culture (Wb) - Anticubital Left Blood Culture - Preliminary No growth in 48 hours. 01/29/24 07:45 Mucosa - Nasopharyngeal Respiratory Panel (PCR) - Final 01/29/24 06:05 Mucosa - Throat Streptococcus pyogenes (PCR) - Final 01/28/24 13:51 Urine Catheter - Catheter Legionella Antigen - Final 01/28/24 13:51 Urine Catheter - Catheter Streptococcus pneumoniae Antigen (M - Final 01/28/24 12:40 Mucosa - Nose SARS-CoV-2, Influenza & RSV (PCR) - Final D/C Instructions Discharge Diet: Low fat / Low cholesterol Call your doctor if you observe: Fever of 101 or Higher, Shortness of breath, Dizziness, Fainting spells, Swelling in the ankles, Chest pain and Increased palpitations (irregular heartbeat) Meaningful Use Info Meaningful Use Meaningful Use Diagnoses (Choose all that apply): None applicable Ischemic Stroke Statin Dosing Therapy Reference: STATIN DOSE THERAPY REFERENCE: * Patients > 75 years receive moderate or high dose statin therapy. * Patients 75 years or YOUNGER should receive HIGH intensity statin dose unless contraindicated. You will be required to document reason for non-treatment if statin daily dose does not meet guidelines. HIGH DOSE STATIN THERAPY DAILY Atorvastatin > than or = to 40 mg Rosuvastatin > than or = to 20 mg Amlodipine + Atorvastatin > than or = to 2.5/40 mg Ezetimibe + Simvastatin 10/80 mg Simvastatin 80mg Discharge Plan Admission Admit Date/Time: 01/28/24 15:50 Attending Provider: Ritesh Cartwright Primary Care Provider: Anthony Vang Consulting Providers: Oz Lara; Liat Charles; Zack Royal; Berhane Cast Instructions Additional Instructions / Restrictions: Home PT/OT Discharge Orders/Prescriptions Prescriptions: New allopurinol 300 mg Tablet 300 mg PO DAILYCM 30 Days Qty: 30 0RF Continued lisinopril 10 MG tablet 10 mg PO DAILY Patient Comments: Blood pressure pantoprazole 40 mg Tablet,Delayed Release (Dr/Ec) 40 mg PO BID Qty: 0 0RF amlodipine 5 mg tablet 5 mg PO DAILY Qty: 30 0RF ferrous sulfate [FeroSul] 325 mg (65 mg iron) tablet 325 mg PO BID docusate sodium 100 mg capsule 100 mg PO BID fluticasone propionate 50 mcg/actuation spray,suspension 1 spray INTRANASAL DAILY Patient Comments: [NO ORIGINAL SIG] nystatin 100,000 unit/gram cream 1 applic topical BID loratadine 10 mg tablet 10 mg PO DAILY furosemide [Lasix] 40 mg tablet 40 mg PO DAILY multivitamin Tablet 1 tab PO DAILY Held potassium chloride 20 mEq tablet extended release 20 meq PO BID Qty: 30 0RF Hold Instructions: Resume on 02/05/24. Referrals / Follow Up: Anthony Vang MD [Primary Care Provider] - 02/11/24 10:20 am (Appointment is with Shelley Armenta N.P.) Berhane aCst MD [Med Staff - Active Staff] - 02/03/24 10:30 am Disposition Disposition (needs filled in before D/C Order can be placed): Home, Self Care Charges/Coding Visit Charges Inpatient E&M: 45093 Disch Hosp >30min
== END 2024-02-01 16:37 | disposition home or self-care (01) | DRG 70 ==
LOC: ED 17:00 → PCU 17:03
PROVIDERS: Family Medicine; Internal Medicine; Admitting Provider Internal Medicine; Emergency Provider Emergency Medicine; PCP Family Medicine; Visit Provider Family Medicine
DX: G93.41 Metabolic encephalopathy (principal); J18.9 Pneumonia, unspecified organism; I13.0 Hypertensive heart and chronic kidney disease with heart failure and stage 1 through stage 4 chronic kidney disease, or unspecified chronic kidney disease; E87.1 Hypo-osmolality and hyponatremia; C91.10 Chronic lymphocytic leukemia of B-cell type not having achieved remission; I50.32 Chronic diastolic (congestive) heart failure; E86.0 Dehydration; N18.31 Chronic kidney disease, stage 3a; D50.9 Iron deficiency anemia, unspecified; E66.9 Obesity, unspecified; K11.8 Other diseases of salivary glands; E86.1 Hypovolemia; K21.9 Gastro-esophageal reflux disease without esophagitis; J30.9 Allergic rhinitis, unspecified; E87.5 Hyperkalemia; Z11.52 Encounter for screening for COVID-19; R62.50 Unspecified lack of expected normal physiological development in childhood; F79 Unspecified intellectual disabilities; R09.02 Hypoxemia; Z66 Do not resuscitate; Z79.899 Other long term (current) drug therapy; Z68.39 Body mass index [BMI] 39.0-39.9, adult; R59.1 Generalized enlarged lymph nodes
CPT/HCPCS: 36415; 36600; 70491; 70543; 71046; 74230; 80048; 80053; 80202; 81001; 82550; 82803; 83605; 83615; 83735; 83880; 84145; 84443; 84550; 85025; 85610; 85730; 86703; 86706; 86803; 87040; 87086; 87340; 87449; 87631; 87633; 87641; 87651; 92526; 92610; 92611; 93005; 94640; 94762; 97110; 97162; 97165; 97530; 97802; 99285; A9575; J7030; J7040; J7050; P9612; Q9967; A4216; J1940

== ENCOUNTER 2024-03-02 12:43 | Emergency (ER) | payer MEDICARE, MEDICAID, SELFPAY ==
[2024-03-02 12:43] VITALS: BP 98/62; PULSE 81; RESP 16; TEMP 37.2; O2SAT 97; BMI 32.1
--- NOTE | 2024-03-02 13:40 | EDS_ITS ---
HPI History of Present Illness Chief Complaint: Wound Narrative Narrative: Patient is a 64-year-old male with history CHF, developmental delay, CLL, hypertension and stasis dermatitis presenting for wound evaluation for his forehead. Patient did not have any reported fall or trauma. Apparently he has had a wound on his forehead for at least a couple days that is getting worse and he was sent in by assisted for further evaluation. No report of any fevers, appetite or behavior changes. Patient denies any pain at the area. [facility] Medical History Anxiety Kidney disease GERD (gastroesophageal reflux disease) Non-smoker Intellectual disability Melanoma HTN (hypertension) Stasis dermatitis of both legs Ulcer of right lower extremity with fat layer exposed Cellulitis of both lower extremities Edema of both legs Noncompliance Ulcer of left lower leg Home Medications ?Medication ?Instructions ?Recorded ?Last Taken ?Type lisinopril 10 mg tablet 10 mg PO DAILY BP 12/15/16 10/08/21 History amlodipine 5 mg tablet 5 mg PO DAILY #30 tabs 09/09/23 Unknown Rx pantoprazole 40 mg tablet,delayed 40 mg PO BID #0 tabs 09/09/23 Unknown Rx release potassium chloride 20 mEq 20 meq PO BID #30 tabs 09/09/23 Unknown Rx tablet,extended release furosemide 40 mg tablet (Lasix) 40 mg PO DAILY 11/18/23 Unknown History multivitamin 1 tab PO DAILY 11/18/23 Unknown History docusate sodium 100 mg capsule 100 mg PO BID 01/28/24 Unknown History ferrous sulfate 325 mg (65 mg 325 mg PO BID 01/28/24 Unknown History iron) tablet (FeroSul) fluticasone propionate 50 1 spray intranasal DAILY 01/28/24 Unknown History mcg/actuation nasal spray,suspension loratadine 10 mg tablet 10 mg PO DAILY 01/28/24 Unknown History nystatin 100,000 unit/gram topical 1 applic topical BID 01/28/24 Unknown History cream allopurinol 300 mg tablet 300 mg PO DAILYCM 30 days #30 tabs 02/01/24 Unknown Rx doxycycline hyclate 100 mg capsule 100 mg PO BID #14 caps 03/02/24 Unknown Rx Allergy/AdvReac Type Severity Reaction Status Date / Time No Known Allergies Allergy Verified 03/02/24 12:44 Surgical History History of skin graft H/O melanoma excision Social History Smoking Status: Never smoker ROS ROS ED Review of Systems ROS Unobtainable: other Details: Review of systems is limited secondary to patient's mental status Constitutional Constitutional ED: Denies chills or fever(s) Gastrointestinal Gastrointestinal: Denies nausea or vomiting Integumentary Reports rash EXAM Physical Exam Const Vital Signs: 03/02/24 12:43 Temperature 98.9 F Temperature Source Temporal Pulse Rate 81 Respiratory Rate 16 Blood Pressure 98/62 Blood Pressure Mean 74 Pulse Ox 97 Oxygen Delivery Method Room Air Positive well nourished and well developed General Appearance ED: well developed and NAD HEENT Reports moist mucous membranes HEENT Narrative: Normocephalic atraumatic Eyes PERRL Chest Wall inspection of chest normal and palpation of chest normal Resp normal respiratory effort and clear to auscultation bilaterally Cardio regular rate and regular rhythm Neuro oriented x3 Sensorium / Orientation: alert Skin Skin Narrative: Patient has an irregular, slightly ulcerated wound over his forehead. There are 2 spots 1 is irregular at approximately 4 cm x 1 cm and lateral to that on the left there is a 1 cm x 1 cm area. There is some mild drainage over it but it is difficult to tell if it is granulomatous versus infectious. There is no surrounding erythema. Does not seem to be tender to palpation. No associated lymphangitic streaking or fluctuance. MDM MDM MDM Narrative Medical decision making narrative: Patient is evaluated for atraumatic wound to his forehead. Patient does have an ulcerated and slightly draining wound. Will obtain a culture and placed on doxycycline. Is given first dose in the emergency room. Patient does appear to have a history of melanoma and while this likely is infectious this also could be neoplastic. Will be given a referral for follow-up with dermatology if she does not heal. Is also card to follow-up with primary care doctor. Is given return precautions. Discharged back to assisted in stable condition. Is patient is normal vital signs, is well-appearing with no systemic symptoms I do not think requires further workup. Discharge Plan Triage Chief Complaint: Wound ED Provider: Kiersten Aguilar Dx/Rx/DC Orders Clinical Impression: Wound, open, forehead, Cellulitis Instructions: ED Cellulitis Prescriptions: New doxycycline hyclate 100 mg capsule 100 mg PO BID Qty: 14 0RF No Action lisinopril 10 MG tablet 10 mg PO DAILY Patient Comments: Blood pressure pantoprazole 40 mg Tablet,Delayed Release (Dr/Ec) 40 mg PO BID Qty: 0 0RF potassium chloride 20 mEq tablet extended release 20 meq PO BID Qty: 30 0RF amlodipine 5 mg tablet 5 mg PO DAILY Qty: 30 0RF ferrous sulfate [FeroSul] 325 mg (65 mg iron) tablet 325 mg PO BID docusate sodium 100 mg capsule 100 mg PO BID fluticasone propionate 50 mcg/actuation spray,suspension 1 spray INTRANASAL DAILY Patient Comments: [NO ORIGINAL SIG] nystatin 100,000 unit/gram cream 1 applic topical BID loratadine 10 mg tablet 10 mg PO DAILY allopurinol 300 mg Tablet 300 mg PO DAILYCM 30 Days Qty: 30 0RF furosemide [Lasix] 40 mg tablet 40 mg PO DAILY multivitamin Tablet 1 tab PO DAILY Primary Care Provider: Anthony Vang Referrals: Anthony Vang MD [Primary Care Provider] - Power Bear MD [Med Staff - Disability Coordinator] - 3-5 Days Print Language: [place] Disposition Disposition: Home, Self Care
[2024-03-02] MEDS: Doxycycline 100 MG CAPSULE PO (14:34)
[2024-03-02 14:40] VITALS: BP 103/70; PULSE 81; RESP 18; TEMP 36.6; O2SAT 97
== END 2024-03-02 14:41 | disposition home or self-care (01) ==
PROVIDERS: Emergency Provider Emergency Medicine; PCP Family Medicine; Visit Provider Emergency Medicine
DX: L03.211 Cellulitis of face (principal); C91.10 Chronic lymphocytic leukemia of B-cell type not having achieved remission; I11.0 Hypertensive heart disease with heart failure; I50.9 Heart failure, unspecified; K21.9 Gastro-esophageal reflux disease without esophagitis
CPT/HCPCS: 87070; 87077; 87186; 87205; 99282

== ENCOUNTER 2024-04-05 09:04 | Emergency (ER) | payer MEDICARE, MEDICAID, SELFPAY ==
[2024-04-05 09:05] VITALS: BP 110/69; PULSE 85; RESP 18; TEMP 35.8; O2SAT 100
--- NOTE | 2024-04-05 09:52 | EX.ED.DYSGE1 ---
HPI History of Present Illness Chief Complaint: Edema Narrative Narrative: Patient presents with redness and swelling to the left side of his face that was noticed this morning. Patient has a history of encephalopathy and is a poor informant. senior care staff noticed swelling this morning. Patient admits to decreased hearing. Patient does not answer any questions. Staff denies any fevers or chills. Staff reports that the patient ate normal breakfast today. Staff denies any nausea or vomiting. [facility] Medical History Anxiety Kidney disease GERD (gastroesophageal reflux disease) Non-smoker Intellectual disability Melanoma HTN (hypertension) Stasis dermatitis of both legs Ulcer of right lower extremity with fat layer exposed Cellulitis of both lower extremities Edema of both legs Noncompliance Ulcer of left lower leg Home Medications ?Medication ?Instructions ?Recorded ?Last Taken ?Type lisinopril 10 mg tablet 10 mg PO DAILY BP 12/15/16 10/08/21 History amlodipine 5 mg tablet 5 mg PO DAILY #30 tabs 09/09/23 Unknown Rx pantoprazole 40 mg tablet,delayed 40 mg PO BID #0 tabs 09/09/23 Unknown Rx release potassium chloride 20 mEq 20 meq PO BID #30 tabs 09/09/23 Unknown Rx tablet,extended release furosemide 40 mg tablet (Lasix) 40 mg PO DAILY 11/18/23 Unknown History multivitamin 1 tab PO DAILY 11/18/23 Unknown History docusate sodium 100 mg capsule 100 mg PO BID 01/28/24 Unknown History ferrous sulfate 325 mg (65 mg 325 mg PO BID 01/28/24 Unknown History iron) tablet (FeroSul) fluticasone propionate 50 1 spray intranasal DAILY 01/28/24 Unknown History mcg/actuation nasal spray,suspension loratadine 10 mg tablet 10 mg PO DAILY 01/28/24 Unknown History nystatin 100,000 unit/gram topical 1 applic topical BID 01/28/24 Unknown History cream allopurinol 300 mg tablet 300 mg PO DAILYCM 30 days #30 tabs 02/01/24 Unknown Rx doxycycline hyclate 100 mg capsule 100 mg PO BID #14 caps 03/02/24 Unknown Rx amoxicillin 875 mg-potassium 875 mg PO Q12H #20 TABLETS 04/05/24 Unknown Rx clavulanate 125 mg tablet Allergy/AdvReac Type Severity Reaction Status Date / Time No Known Allergies Allergy Verified 04/05/24 09:04 Surgical History History of skin graft H/O melanoma excision Social History Smoking Status: Never smoker ROS ROS ED Review of Systems ROS Unobtainable: due to encephalopathy Constitutional Constitutional ED: Denies chills or fever(s) Respiratory/Chest Respiratory/Chest: Denies cough or dyspnea Gastrointestinal Gastrointestinal: Denies nausea or vomiting Allergic/Immunologic Allergic/Immunologic ED: Denies mouth swelling or tongue swelling EXAM Physical Exam Const Vital Signs: 04/05/24 09:05 04/05/24 10:27 04/05/24 11:23 Temperature 96.5 F L 96.9 F L Temperature Source Temporal Temporal Pulse Rate 85 71 Respiratory Rate 18 18 Respiratory Effort Normal Non-Labored Respiratory Pattern Normal Blood Pressure 110/69 98/56 L Blood Pressure Mean 82 70 Pulse Ox 100 100 Oxygen Delivery Method Room Air Room Air Positive well nourished and well developed General Appearance ED: well developed and NAD HEENT Reports moist mucous membranes HEENT Narrative: There is a tender erythematous area over the left parotid gland. There is no fluctuance noted. There is no discharge or drainage. There appears to be some mild tenderness. Neck supple and no JVD Resp normal respiratory effort and clear to auscultation bilaterally Cardio regular rate and regular rhythm GI non-tender and non-distended Palpation: soft Neuro CN's II-XII intact bilaterally and no sensory deficits noted Sensorium / Orientation: alert Motor Exam: strength 5/5 throughout MDM MDM MDM Narrative Medical decision making narrative: Differential diagnosis includes parotid abscess, parotitis, facial abscess, sialoadenitis, and sialolithiasis. CBC will be obtained to assess for leukocytosis and anemia. Basic metabolic profile will be obtained to assess for electrolyte abnormality and renal function. CT of the soft tissue neck will be obtained to assess for parotid abscess and parotitis. Lab Data Attestation: I reviewed the patient's lab results. Lab results narrative: CBC was reviewed. White blood cell count was 26.5. This is actually improved from previous result. The remainder is within normal limits. Basic metabolic profile was reviewed and was within normal limits. Labs: Laboratory Results - last 24 hr 04/05/24 10:15 WBC 26.5 H RBC 4.00 L Hgb 11.9 L Hct 35.7 L MCV 89.3 MCH 29.8 MCHC 33.3 RDW Std Deviation 45.7 H RDW Coeff of Heath 14.2 Plt Count 222 MPV 11.2 Immature Gran % (Auto) 0.200 Neut % (Auto) 14.0 L Lymph % (Auto) 79.6 H [place] % (Auto) 5.0 Eos % (Auto) 0.9 Baso % (Auto) 0.3 Absolute Neuts (auto) 3.7 Absolute Lymphs (auto) 21.09 H Nucleated RBC % 0.2 Differential Comment SCANNED Sodium 137 Potassium 4.5 Chloride 104 Carbon Dioxide 29.0 Anion Gap 4 L BUN 20 H Creatinine 1.18 Estim Creat Clear Calc 71.89 Est GFR (MDRD) Af Amer 80 Est GFR (MDRD) Non-Af 66 BUN/Creatinine Ratio 16.9 Glucose 93 Calcium 9.2 Radiography Diagnostic Testing: Clinical Impression(s) from Imaging Studies Soft Tissue Neck CT 04/05/24 09:59 IMPRESSION: Persistent heterogeneous enlargement and enhancement of the left parotid gland with diffuse cervical and mediastinal lymphadenopathy. Enlarged lymph nodes are also seen in the axillary regions. Electronically Signed: Pavel Lara MD at 11:19 EDT , CT scan of the soft tissue head and neck was obtained. There is heterogeneous enlargement and enhancement of the left parotid gland with cervical and mediastinal lymphadenopathy. There are areas of decreased attenuation suggestive of possible necrosis. Biopsy was recommended for further evaluation. This was interpreted by the radiologist and was also independently reviewed by myself. Treatment and Re-Evaluation :: Patient was given a dose of Unasyn here. Patient and caregiver were advised of the findings. Case was discussed with Dr. Owens. He recommended placing the patient on Augmentin. He will follow-up with the patient in 2 to 3 weeks. Patient and caregiver understood and were agreeable with the plan. All questions were answered. Discharge Plan Triage Chief Complaint: Edema ED Provider: Tevin Justice Dx/Rx/DC Orders Clinical Impression: Acute parotitis, History of chronic lymphocytic leukemia Instructions: ED Salivary Gland Infection Prescriptions: New amoxicillin-pot clavulanate 875-125 mg tablet 875 mg PO Q12H Qty: 20 0RF No Action lisinopril 10 MG tablet 10 mg PO DAILY Patient Comments: Blood pressure pantoprazole 40 mg Tablet,Delayed Release (Dr/Ec) 40 mg PO BID Qty: 0 0RF potassium chloride 20 mEq tablet extended release 20 meq PO BID Qty: 30 0RF amlodipine 5 mg tablet 5 mg PO DAILY Qty: 30 0RF ferrous sulfate [FeroSul] 325 mg (65 mg iron) tablet 325 mg PO BID docusate sodium 100 mg capsule 100 mg PO BID fluticasone propionate 50 mcg/actuation spray,suspension 1 spray INTRANASAL DAILY Patient Comments: [NO ORIGINAL SIG] nystatin 100,000 unit/gram cream 1 applic topical BID loratadine 10 mg tablet 10 mg PO DAILY allopurinol 300 mg Tablet 300 mg PO DAILYCM 30 Days Qty: 30 0RF doxycycline hyclate 100 mg capsule 100 mg PO BID Qty: 14 0RF furosemide [Lasix] 40 mg tablet 40 mg PO DAILY multivitamin Tablet 1 tab PO DAILY Primary Care Provider: Anthony Vang Referrals: Anthony Vang MD [Primary Care Provider] - 5-7 Days Tyler Owens MD [Med Staff - Active Staff] - 10-14 Days if not better Print Language: [place] Disposition Disposition: Home, Self Care
--- NOTE | 2024-04-05 09:59 | CT_ITS ---
STUDY: CT SOFT TISSUE NECK WITH CONTRAST REASON FOR EXAM: Male, 64 years old. Parotid gland swelling RADIATION DOSAGE (If Supplied By Facility): CTDIvol = ( 16.69 ) mGy, DLP = ( 562.99 ) mGycm TECHNIQUE: The patient was scanned in a multi-detector CT scanner. High resolution transaxial imaging was performed following intravenous administration of IV 75mL Isovue-300. Sagittal and coronal images were reconstructed. Individualized dose optimization techniques were used for this CT. COMPARISON: Comparison is made with prior study dated January 28, 2024. FINDINGS: Multiple enlarged lymph nodes seen in the superior mediastinum. Enlarged bilateral axillary lymph nodes. Diffuse persistent heterogeneous enlargement and enhancement of the left parotid gland with areas of decreased attenuation suggestive of possible necrosis. Biopsy recommended for further evaluation. Normal bilateral chemist steroids spaces. Normal bilateral parapharyngeal spaces. Normal bilateral carotid spaces. Normal bilateral sublingual and submandibular glands and spaces. Normal visualized nasopharynx. Normal retropharyngeal space. Normal perivertebral space. Normal visualized bilateral faucial tonsils. The visualized tongue, tongue base and oropharynx are normal. Enlarged cervical lymph nodes. There is no demonstrated solid or cystic mass lesion. There is no abnormal contrast enhancement. Normal epiglottis, bilateral vallecula and hypopharynx. The pre-epiglottic and paraglottic adipose spaces are normal. Normal visualized bilateral piriform sinuses, aryepiglottic folds, vocal cords, and arytenoid-cricoid articulations. Normal subglottic trachea. Normal bilateral lobes of the thyroid gland. Normal visualized pulmonary apices. Mucosal thickening of the left maxillary sinus. Normal visualized cervical spine. CT/Soft Tissue Neck WITH Contrast IMPRESSION: Persistent heterogeneous enlargement and enhancement of the left parotid gland with diffuse cervical and mediastinal lymphadenopathy. Enlarged lymph nodes are also seen in the axillary regions. Electronically Signed: Pavel Lara MD at 11:19 EDT ,
[2024-04-05] MEDS: Ampicillin/Sulbactam 3 GM in 0.9% Normal Saline (100mL MB+) 100 ML IV (10:23)
[2024-04-05 10:26] VITALS: BMI 33.0
[2024-04-05 10:28] LABS: Absolute Lymphocyte Count 21.09 X10^3/uL (0.83-4.51); Absolute Neutrophil Count 3.7 X10^3/uL (2.0-7.7); Basophil# 0.09 X10^3/uL; Basophil% 0.3 % (0-1); Eosinophil# 0.23 X10^3/uL; Eosinophils% 0.9 % (0-5); Hematocrit 35.7 % (40-54); Hemoglobin 11.9 g/dL (13.0-16.5); Lymphocyte # 21.09 X10^3/ul (0.83-4.51); Lymphocyte % 79.6 % (19-41); Mean Corp Hgb Conc 33.3 g/dL (32-36); Mean Corpuscular Hgb 29.8 pg (27.0-32.0); Mean Corpuscular Volume 89.3 fL (80-94); Mean Platelet Vol. 11.2 fl (6.2-12.0); Monocyte# 1.33 X10^3/uL; NRBC Flagged by Analyzer 0.2 % (0-5); POSITIVE DIFFERENTIAL YES; POSITIVE MORPHOLOGY YES; Platelet Count 222 K/mm3 (150-450); RBC Distribution Width CV 14.2 % (11.6-14.6); RBC Distribution Width SD 45.7 fl (35.1-43.9); White Blood Count 26.5 K/mm3 (4.4-11.0)
[2024-04-05 10:35] LABS: Differential Indicated SCAN CRITERIA MET
[2024-04-05 10:41] LABS: Anion Gap 4 (5-15); BUN 20 mg/dL (7-18); BUN/Creat Ratio 16.9 RATIO (10-20); Calcium,Total 9.2 mg/dL (8.5-10.1); Chloride 104 mmol/L (98-107); Creatinine, Serum 1.18 mg/dL (0.70-1.30); EST Glomerular Filtration Rate 66 mL/min (>60); Est Glom Filt Rate - Afr Amer 80 mL/min (>60); Estimated Creatinine Clearance 71.89 ml/min; Glucose 93 mg/dL (74-106); Potassium 4.5 mmol/L (3.5-5.1); Sodium Level 137 mmol/L (136-145)
[2024-04-05 11:23] VITALS: BP 98/56; PULSE 71; RESP 18; TEMP 36.1; O2SAT 100
[2024-04-05 11:25] LABS: Differential Comment SCANNED
--- NOTE | 2024-04-05 11:44 | ED.RN ---
called for consent for tx, PHIL SonDonna, brother. states in the past pt has had blocked salivary gland to left side.
== END 2024-04-05 12:42 | disposition home or self-care (01) ==
PROVIDERS: Emergency Provider Emergency Medicine; PCP Family Medicine; Visit Provider Emergency Medicine
DX: K11.20 Sialoadenitis, unspecified (principal); I10 Essential (primary) hypertension; K21.9 Gastro-esophageal reflux disease without esophagitis; Z85.6 Personal history of leukemia
CPT/HCPCS: 70491; 80048; 85025; 96365; 99283; J7050; Q9967; J0295

== ENCOUNTER 2024-06-06 22:51 | Emergency (ER) | payer MEDICARE, MEDICAID, SELFPAY ==
[2024-06-06 22:52] VITALS: BP 162/100; PULSE 91; RESP 18; TEMP 36.2; O2SAT 97; BMI 33.3
[2024-06-06 23:15] LABS: Absolute Neutrophil Count 12.5 X10^3/uL (2.0-7.7); Basophil# 0.17 X10^3/uL; Basophil% 0.4 % (0-1); Eosinophil# 0.54 X10^3/uL; Eosinophils% 1.2 % (0-5); Hematocrit 38.2 % (40-54); Hemoglobin 12.9 g/dL (13.0-16.5); Mean Corp Hgb Conc 33.8 g/dL (32-36); Mean Corpuscular Volume 88.8 fL (80-94); Mean Platelet Vol. 11.4 fl (6.2-12.0); Monocyte# 1.39 X10^3/uL; Monocyte% 3.2 % (0-10); NRBC Flagged by Analyzer 0.2 % (0-5); Neutrophil # 12.49 X10^3/uL (2.7-7.7); Neutrophil % 28.5 % (47-70); POSITIVE COUNT YES; POSITIVE DIFFERENTIAL YES; POSITIVE MORPHOLOGY YES; Platelet Count 234 K/mm3 (150-450); RBC Distribution Width CV 15.2 % (11.6-14.6); RBC Distribution Width SD 49.1 fl (35.1-43.9)
[2024-06-06 23:19] LABS: Differential Indicated SCAN CRITERIA MET; White Blood Count 43.8 K/mm3 (4.4-11.0)
[2024-06-06] MEDS: Ondansetron 4 MG/2 ML Vial IV (23:20)
[2024-06-06 23:25] LABS: Partial Thromboplast Time 22.4 Seconds (24.1-36.2); Prothrombin Time (Protime)PT. 13.4 SECONDS (11.7-14.9)
[2024-06-06 23:37] LABS: AST(SGOT) 29 U/L (15-37); Alanine Aminotransfer ALT/SGPT 24 U/L (16-61); Albumin, Serum 3.7 g/dL (3.2-5.0); Alkaline Phosphatase 88 U/L (45-117); Anion Gap 7 (5-15); BUN 29 mg/dL (7-18); BUN/Creat Ratio 20.6 RATIO (10-20); Calcium,Total 9.5 mg/dL (8.5-10.1); Chloride 102 mmol/L (98-107); Creatinine, Serum 1.41 mg/dL (0.70-1.30); EST Glomerular Filtration Rate 54 mL/min (>60); Est Glom Filt Rate - Afr Amer 65 mL/min (>60); Estimated Creatinine Clearance 61.57 ml/min; Globulin 4.1 g/dL (2.2-4.2); Glucose 145 mg/dL (74-106); Lipase 44 U/L (13-75); Potassium 5.2 mmol/L (3.5-5.1); Protein, Total 7.8 g/dL (6.4-8.2); Sodium Level 136 mmol/L (136-145)
--- NOTE | 2024-06-06 23:48 | CT_ITS ---
EXAM: CT ANGIOGRAPHY ABDOMEN AND PELVIS WITHOUT AND WITH INTRAVENOUS CONTRAST CLINICAL INDICATION: gi bleed TECHNIQUE: Helically acquired angiography images were obtained of the abdomen and pelvis without and with intravenous contrast. This CT exam was performed using one or more of the following dose reduction techniques: automated exposure control, adjustment of the mA and/or kV according to patient size, and/or use of iterative reconstruction technique. MIP reconstructed images were created and reviewed. CONTRAST: 100 cc of Isovue-370 IV. RADIATION DOSE: CTDIvol = 33.46 mGy, DLP = 1380.51 mGy-cm COMPARISON: No relevant prior studies available. FINDINGS: VASCULATURE: AORTA: Extensive mesenteric and periaortic adenopathy. Normal caliber abdominal aorta. No dissection. CELIAC TRUNK AND MESENTERIC ARTERIES: No acute findings. No occlusion or significant stenosis. No dissection. RENAL ARTERIES: No acute findings. No occlusion or significant stenosis. No dissection. ILIAC ARTERIES: No acute findings. No occlusion or significant stenosis. No dissection. LOWER THORAX: Coronary artery calcifications. Small left pleural effusion. No cardiomegaly. ABDOMEN: LIVER: Unremarkable. Homogeneous. No focal mass. GALLBLADDER AND BILE DUCTS: Unremarkable. No calcified gallstones. No gallbladder distention or wall edema. No intra- or extrahepatic biliary ductal dilation. PANCREAS: Unremarkable. No focal cystic or solid mass. SPLEEN: Heterogeneous appearance to the spleen probably represents flow related enhancement artifact. ADRENALS: Unremarkable. No nodules. KIDNEYS AND URETERS: Unremarkable. Normal renal size and position. No hydronephrosis. STOMACH AND BOWEL: The rectum is distended up to 6.5 cm in diameter. Moderate amount of fecal material throughout the colon. No focal inflammatory change. PELVIS: APPENDIX: No evidence of acute appendicitis. BLADDER: Unremarkable. REPRODUCTIVE: Unremarkable as visualized. No mass. ABDOMEN and PELVIS: INTRAPERITONEAL SPACE: Unremarkable. No ascites or other fluid collection. No free air. BONES/JOINTS: Unremarkable. No suspicious lytic or blastic abnormality. SOFT TISSUES: Unremarkable. No discrete abdominal or pelvic wall hernia. LYMPH NODES: Subcarinal lymphadenopathy. Probable left hilar adenopathy or left hilar mass is partially visualized. Several mildly enlarged axillary lymph nodes bilaterally. Mild adenopathy in the groin bilaterally. CT/CTA Abd/Pelvis W/WO Contrast IMPRESSION: 1. Extensive adenopathy including mediastinal, hilar, mesenteric, retroperitoneal, axillary, and groin probably due to lymphoma. 2. No specific etiology for GI bleeding identified. 3. Constipation with mild rectal fecal impaction. 4. Coronary artery disease. 5. Small left pleural effusion. Electronically Signed: Viral Cruz MD at 1:49 EST ,
[2024-06-06 23:51] LABS: Differential Comment SCANNED; Smudge Cells 1+
[2024-06-06] MEDS: 0.9% Normal Saline (500mL Bag) 500 ML 999 ML IV (23:55)
[2024-06-07 00:52] VITALS: BP 120/67; PULSE 77; RESP 16; O2SAT 92
[2024-06-07] MEDS: proCHLORPERazine 10 MG/2 ML Vial IV (01:06)
[2024-06-07] MEDS: DiphenhydrAMINE 50 MG/ML Syringe 25 MG IV (01:06)
[2024-06-07 01:11] VITALS: O2SAT 88; O2SAT 93
--- NOTE | 2024-06-07 02:31 | EX.ED.DYSGE1 ---
HPI History of Present Illness Chief Complaint: GI Bleed Informant: patient and SNF Narrative Narrative: Patient is a 64-year-old male with MRDD who has a past medical history of hypertension congestive heart failure and leukemia. Secondary to his MRDD he cannot provide any further history. The [facility] staff states that today he had 1-2 episodes of vomiting. They state it was not dark or bloody in nature. They report that he then had a bowel movement and there was bright red blood. They state he does not have a history of bleeding disorder nor does he take blood thinners and therefore with the blood noted with bowel movement there was concern for potential internal bleeding and he was sent to the ER for evaluation [facility] Medical History Anxiety Kidney disease GERD (gastroesophageal reflux disease) Non-smoker Intellectual disability Melanoma HTN (hypertension) Stasis dermatitis of both legs Ulcer of right lower extremity with fat layer exposed Cellulitis of both lower extremities Edema of both legs Noncompliance Ulcer of left lower leg Home Medications ?Medication ?Instructions ?Recorded ?Last Taken ?Type lisinopril 10 mg tablet 10 mg PO DAILY BP 12/15/16 10/08/21 History amlodipine 5 mg tablet 5 mg PO DAILY #30 tabs 09/09/23 Unknown Rx pantoprazole 40 mg tablet,delayed 40 mg PO BID #0 tabs 09/09/23 Unknown Rx release potassium chloride 20 mEq 20 meq PO BID #30 tabs 09/09/23 Unknown Rx tablet,extended release furosemide 40 mg tablet (Lasix) 40 mg PO DAILY 11/18/23 Unknown History multivitamin 1 tab PO DAILY 11/18/23 Unknown History docusate sodium 100 mg capsule 100 mg PO BID 01/28/24 Unknown History ferrous sulfate 325 mg (65 mg 325 mg PO BID 01/28/24 Unknown History iron) tablet (FeroSul) fluticasone propionate 50 1 spray intranasal DAILY 01/28/24 Unknown History mcg/actuation nasal spray,suspension loratadine 10 mg tablet 10 mg PO DAILY 01/28/24 Unknown History nystatin 100,000 unit/gram topical 1 applic topical BID 01/28/24 Unknown History cream allopurinol 300 mg tablet 300 mg PO DAILYCM 30 days #30 tabs 02/01/24 Unknown Rx doxycycline hyclate 100 mg capsule 100 mg PO BID #14 caps 03/02/24 Unknown Rx amoxicillin 875 mg-potassium 875 mg PO Q12H #20 TABLETS 04/05/24 Unknown Rx clavulanate 125 mg tablet Allergy/AdvReac Type Severity Reaction Status Date / Time No Known Allergies Allergy Verified 06/06/24 23:06 Surgical History History of skin graft H/O melanoma excision Social History Smoking Status: Never smoker ROS ROS ED ROS Narrative Please note review of systems cannot be obtained as patient is MRDD with intellectual disability Review of Systems ROS Unobtainable: due to mental status EXAM Physical Exam Const Vital Signs: 06/06/24 22:52 06/07/24 00:52 06/07/24 01:11 Temperature 97.2 F L Temperature Source Temporal Pulse Rate 91 77 Respiratory Rate 18 16 Blood Pressure 162/100 H 120/67 Blood Pressure Mean 120 84 Pulse Ox 97 92 88 Oxygen Delivery Method Room Air Room Air Room Air Oxygen Flow Rate (L/min) 06/07/24 01:11 06/07/24 03:00 06/07/24 03:09 Temperature 98 F Temperature Source Pulse Rate 68 Respiratory Rate 16 Blood Pressure 124/87 H Blood Pressure Mean 99 Pulse Ox 93 97 97 Oxygen Delivery Method Nasal Cannula Room Air Oxygen Flow Rate (L/min) 2 Positive well nourished, well developed and obese General Appearance ED: well developed Nutritional Appearance: obese HEENT Reports moist mucous membranes HEENT Narrative: No tongue or lip swelling no oral lesions no airway edema or compromise No dried blood or active bleeding noted in the posterior pharynx No signs of infection in the posterior pharynx either Eyes PERRL and EOMs intact bilaterally General Eye ED: Negative for pale conjunctiva or scleral icterus Neck supple Neck Narrative: No crepitance or subcutaneous emphysema palpated Resp normal respiratory effort and clear to auscultation bilaterally Cardio regular rate and regular rhythm GI non-tender and non-distended GI Narrative: Abdomen is obese soft nontender and nondistended with hyperactive bowel sounds. Patient has a reducible ventral hernia noted. No peritoneal signs or rigidity No pulsatile mass or fluid wave Auscultation: hyperactive bowel sounds Palpation: soft Narrative: Patient has nonbleeding nonthrombosed external hemorrhoids. No anal fissure noted. There is superficial skin breakdown near the rectum without active bleeding present. Rectal tone is normal. Stool is brown in color. Hemoccult is negative Extremity normal to inspection Neuro CN's II-XII intact bilaterally Neuro Narrative: Patient is at his baseline mental status without new or focal neurologic deficit Sensorium / Orientation: alert Psych Psych Narrative: Patient has a flat affect Skin Skin Narrative: Soft tissue skin breakdown near the rectum as documented above without secondary findings to suggest infection or active bleeding noted MDM MDM MDM Narrative Medical decision making narrative: Patient arrived to the ER hypertensive but has a past medical history of this. custodial staff reported bright red blood per rectum. Patient does have external hemorrhoids as well as soft tissue skin breakdown which could have been the cause for bright red blood with bowel movement. In order to ensure he does not have acute blood loss anemia or acute kidney injury or severe electrolyte abnormality secondary to his bouts of nausea and vomiting I did elect to perform basic laboratory studies. The patient's white count is elevated approximately 44 but chart review reveals this is chronic in nature and consistent with his history of leukemia. The patient's BUN was elevated and chart review reveals that his baseline is near 20 and as the value was 29 today that could indicate potential internal bleeding. Even though the rectal exam was negative for blood with the elevated BUN I do have concern for potential GI bleed so elected to do a CTA of the abdomen and pelvis. This revealed no signs of infection perforation obstruction or active bleeding. Therefore at this time as patient's vitals are stable and his overall workup is negative there is no need for further evaluation in the ER and he is otherwise safe for discharge History & Record Review Discussion w/independent historian: Other (custodial staff) Lab Data Attestation: I reviewed the patient's lab results. Labs: Laboratory Results - last 24 hr 06/06/24 23:00 WBC 43.8 H* RBC 4.30 L Hgb 12.9 L Hct 38.2 L MCV 88.8 MCH 30.0 MCHC 33.8 RDW Std Deviation 49.1 H RDW Coeff of Heath 15.2 H Plt Count 234 MPV 11.4 Immature Gran % (Auto) 0.700 Neut % (Auto) 28.5 L Lymph % (Auto) 66.0 H [place] % (Auto) 3.2 Eos % (Auto) 1.2 Baso % (Auto) 0.4 Absolute Neuts (auto) 12.5 H Absolute Lymphs (auto) 28.90 H Nucleated RBC % 0.2 Differential Comment SCANNED Diff Path Review May foll Smudge Cells 1+ H PT 13.4 INR 1.0 APTT 22.4 L Sodium 136 Potassium 5.2 H Chloride 102 Carbon Dioxide 26.0 Anion Gap 7 BUN 29 H Creatinine 1.41 H Estim Creat Clear Calc 61.57 Est GFR (MDRD) Af Amer 65 Est GFR (MDRD) Non-Af 54 L BUN/Creatinine Ratio 20.6 H Glucose 145 H Calcium 9.5 Total Bilirubin 0.30 Direct Bilirubin 0.10 AST 29 ALT 24 Alkaline Phosphatase 88 Total Protein 7.8 Albumin 3.7 Globulin 4.1 Lipase 44 Radiography Diagnostic Testing: Clinical Impression(s) from Imaging Studies Abdomen/Pelvis CTA 06/06/24 23:48 IMPRESSION: 1. Extensive adenopathy including mediastinal, hilar, mesenteric, retroperitoneal, axillary, and groin probably due to lymphoma. 2. No specific etiology for GI bleeding identified. 3. Constipation with mild rectal fecal impaction. 4. Coronary artery disease. 5. Small left pleural effusion. Electronically Signed: Viral Cruz MD at 1:49 EST , Discharge Plan Triage Chief Complaint: GI Bleed ED Provider: Gregg Torres Dx/Rx/DC Orders Clinical Impression: Nausea & vomiting, External hemorrhoid, HTN (hypertension), Intellectual disability, History of chronic lymphocytic leukemia, CHF (congestive heart failure) Instructions: ED Hemorrhoids, ED Vomiting (Adult) Prescriptions: No Action lisinopril 10 MG tablet 10 mg PO DAILY Patient Comments: Blood pressure pantoprazole 40 mg Tablet,Delayed Release (Dr/Ec) 40 mg PO BID Qty: 0 0RF potassium chloride 20 mEq tablet extended release 20 meq PO BID Qty: 30 0RF amlodipine 5 mg tablet 5 mg PO DAILY Qty: 30 0RF ferrous sulfate [FeroSul] 325 mg (65 mg iron) tablet 325 mg PO BID docusate sodium 100 mg capsule 100 mg PO BID fluticasone propionate 50 mcg/actuation spray,suspension 1 spray INTRANASAL DAILY Patient Comments: [NO ORIGINAL SIG] nystatin 100,000 unit/gram cream 1 applic topical BID loratadine 10 mg tablet 10 mg PO DAILY allopurinol 300 mg Tablet 300 mg PO DAILYCM 30 Days Qty: 30 0RF doxycycline hyclate 100 mg capsule 100 mg PO BID Qty: 14 0RF furosemide [Lasix] 40 mg tablet 40 mg PO DAILY multivitamin Tablet 1 tab PO DAILY amoxicillin-pot clavulanate 875-125 mg tablet 875 mg PO Q12H Qty: 20 0RF Primary Care Provider: Anthony Vang Referrals: Anthony Vang MD [Primary Care Provider] - Activity Restrictions/Additional Instructions: The patient's stool with negative for blood on our exam. His CT scan does not reveal any obvious signs of bleeding either. He does have external hemorrhoids as well as some mild skin breakdown near the rectum. Either of these could have led to bouts of bright red blood. However as workup reveals no signs of internal bleeding he is safe to return home Print Language: Kiswahili Disposition Disposition: Home, Self Care Discharge Date/Time: 06/07/24 03:09
[2024-06-07 03:00] VITALS: BP 124/87; PULSE 68; RESP 16; TEMP 36.6; O2SAT 97
[2024-06-07 03:09] VITALS: O2SAT 97
[2024-06-08 13:16] LABS: Pathologist Review Reviewed
== END 2024-06-07 03:09 | disposition home or self-care (01) ==
PROVIDERS: Emergency Provider Emergency Medicine; PCP Family Medicine; Visit Provider Emergency Medicine
DX: R11.2 Nausea with vomiting, unspecified (principal); C95.90 Leukemia, unspecified not having achieved remission; I11.0 Hypertensive heart disease with heart failure; I50.9 Heart failure, unspecified; F79 Unspecified intellectual disabilities; K64.4 Residual hemorrhoidal skin tags; K92.2 Gastrointestinal hemorrhage, unspecified; K21.9 Gastro-esophageal reflux disease without esophagitis; E66.9 Obesity, unspecified
CPT/HCPCS: 74174; 80048; 80076; 82274; 83690; 85025; 85610; 85730; 96361; 96374; 96375; 99285; Q9967; A4216; J2405

== ENCOUNTER 2024-06-13 10:18 | Emergency (ER) | payer MEDICARE, MEDICAID, SELFPAY ==
[2024-06-13 10:20] VITALS: BP 103/77; PULSE 75; RESP 16; TEMP 36.5; O2SAT 97
--- NOTE | 2024-06-13 10:34 | CT_ITS ---
EXAM: CT ABDOMEN AND PELVIS WITH INTRAVENOUS CONTRAST CLINICAL INDICATION: Nausea and vomiting. LYMPHPHATIC LEUKEMIA TECHNIQUE: Helically acquired images were obtained of the abdomen and pelvis with intravenous contrast. CTDIvol = ( 15.39 ) mGy, DLP = ( 1419.88 ) mGycm This CT exam was performed using one or more of the following dose reduction techniques: automated exposure control, adjustment of the mA and/or kV according to patient size, and/or use of iterative reconstruction technique. CONTRAST: IV 100mL Isovue-370 COMPARISON: Jun 07, 2024 FINDINGS: LOWER THORAX: Redemonstration of small left pleural effusion with adjacent passive atelectasis. Unchanged appearance of moderate-sized pericardial effusion although incompletely imaged. Calcific coronary arteriolosclerosis redemonstrated involving left anterior descending coronary artery. ABDOMEN: LIVER: Unchanged intrahepatic and extrahepatic biliary ductal dilatation. Gallbladder is unremarkable. Pancreas is unremarkable. GALLBLADDER AND BILE DUCTS: See above. PANCREAS: See above. SPLEEN: Unremarkable. Normal size without focal cystic or solid mass. ADRENALS: Unremarkable. No nodules. KIDNEYS AND URETERS: Kidneys are otherwise unremarkable. No hydronephrosis. STOMACH AND BOWEL: Throughout the colon. No colitis or diverticulitis. No stomach or bowel distention. PELVIS: APPENDIX: No evidence of acute appendicitis. BLADDER: Decompressed bladder with no significant stranding associated. REPRODUCTIVE: Unremarkable as visualized. No mass. ABDOMEN and PELVIS: INTRAPERITONEAL SPACE: Unremarkable. No ascites or other fluid collection. No free air. BONES/JOINTS: Unremarkable. No suspicious lytic or blastic abnormality. SOFT TISSUES: Unremarkable. No discrete abdominal or pelvic wall hernia. VASCULATURE: See above. LYMPH NODES: Redemonstration of extensive adenopathy including mediastinal, hilar, mesenteric, retroperitoneal, axillary, and groin probably due lymphoma. CT/Abdomen/Pelvis W IV Cont ONLY IMPRESSION: 1. Unchanged adenopathy associated with lymphoma. 2. Unchanged biliary ductal dilatation. Correlate with LFTs and consider MRCP as clinically indicated. 3. Unchanged moderate pericardial effusion, incompletely imaged. Remaining examination is also stable. Electronically Signed: Gregg Vaca MD at 15:15 EST ,
[2024-06-13] MEDS: Ziprasidone IM 20 MG/ML VIAL IM (12:08)
[2024-06-13] MEDS: LORazepam 2 MG/ML Syringe IM (13:13)
[2024-06-13 13:20] LABS: Absolute Lymphocyte Count 26.32 X10^3/uL (0.83-4.51); Absolute Neutrophil Count 4.9 X10^3/uL (2.0-7.7); Basophil# 0.11 X10^3/uL; Basophil% 0.3 % (0-1); Eosinophil# 2.49 X10^3/uL; Eosinophils% 6.9 % (0-5); Hemoglobin 12.6 g/dL (13.0-16.5); Lymphocyte # 26.32 X10^3/ul (0.83-4.51); Lymphocyte % 73.3 % (19-41); Mean Corp Hgb Conc 34.1 g/dL (32-36); Mean Corpuscular Hgb 29.9 pg (27.0-32.0); Mean Corpuscular Volume 87.9 fL (80-94); Monocyte# 1.96 X10^3/uL; Monocyte% 5.5 % (0-10); NRBC Flagged by Analyzer 0.1 % (0-5); Neutrophil # 4.94 X10^3/uL (2.7-7.7); Neutrophil % 13.7 % (47-70); POSITIVE COUNT YES; POSITIVE DIFFERENTIAL YES; POSITIVE MORPHOLOGY YES; Platelet Count 240 K/mm3 (150-450); RBC Distribution Width CV 15.3 % (11.6-14.6); RBC Distribution Width SD 48.1 fl (35.1-43.9); Red Blood Count 4.21 M/mm3 (4.6-6.2); White Blood Count 35.9 K/mm3 (4.4-11.0)
--- NOTE | 2024-06-13 13:32 | ED.VIS.GI ---
HPI HPI - GI History of Present Illness Chief Complaint: GI Bleed Narrative Narrative: 64-year-old male presents from [facility] with staff because of reported coffee-ground emesis. History and physical is limited secondary to intellectual developmental delay. Per his caregiver, he has had 2 weeks of coffee-ground emesis. He was seen in [place] 1 week ago for it. Since then, he has had continued problems with dehydration and continued coffee-ground emesis. They also report history that he was seen by his primary care provider who mention palliative care to his brother Huy who is his power of claims attorney, and/or hospice with possible admission. Patient also reportedly has history of blood cancer, either lymphoma versus myeloma. He presents today with reported 2-week history of coffee-ground emesis and the need for palliative care/hospice consultation. Oral Surgery Technician states that he had a CAT scan performed a week ago which showed he had enlarged lymph nodes in his abdomen meaning that his cancer is progressing. [facility] Medical History Anxiety Kidney disease GERD (gastroesophageal reflux disease) Non-smoker Intellectual disability Melanoma HTN (hypertension) Stasis dermatitis of both legs Ulcer of right lower extremity with fat layer exposed Cellulitis of both lower extremities Edema of both legs Noncompliance Ulcer of left lower leg Home Medications ?Medication ?Instructions ?Recorded ?Last Taken ?Type lisinopril 10 mg tablet 10 mg PO DAILY BP 12/15/16 10/08/21 History amlodipine 5 mg tablet 5 mg PO DAILY #30 tabs 09/09/23 Unknown Rx pantoprazole 40 mg tablet,delayed 40 mg PO BID #0 tabs 09/09/23 Unknown Rx release potassium chloride 20 mEq 20 meq PO BID #30 tabs 09/09/23 Unknown Rx tablet,extended release furosemide 40 mg tablet (Lasix) 40 mg PO DAILY 11/18/23 Unknown History multivitamin 1 tab PO DAILY 11/18/23 Unknown History docusate sodium 100 mg capsule 100 mg PO BID 01/28/24 Unknown History ferrous sulfate 325 mg (65 mg 325 mg PO BID 01/28/24 Unknown History iron) tablet (FeroSul) fluticasone propionate 50 1 spray intranasal DAILY 01/28/24 Unknown History mcg/actuation nasal spray,suspension loratadine 10 mg tablet 10 mg PO DAILY 01/28/24 Unknown History nystatin 100,000 unit/gram topical 1 applic topical BID 01/28/24 Unknown History cream allopurinol 300 mg tablet 300 mg PO DAILYCM 30 days #30 tabs 02/01/24 Unknown Rx doxycycline hyclate 100 mg capsule 100 mg PO BID #14 caps 03/02/24 Unknown Rx amoxicillin 875 mg-potassium 875 mg PO Q12H #20 TABLETS 04/05/24 Unknown Rx clavulanate 125 mg tablet Allergy/AdvReac Type Severity Reaction Status Date / Time No Known Allergies Allergy Verified 06/06/24 23:06 Surgical History History of skin graft H/O melanoma excision Social History Smoking Status: Never smoker ROS ROS ED ROS Narrative Unable to obtain from patient. Reported coffee-ground emesis x 2 weeks. Review of Systems ROS Unobtainable: due to mental condition EXAM Physical Exam Narrative Exam Narrative: Afebrile. Vital signs noted. Consistent with MRDD/IDD. Cardiovascular examination reveals a regular rate and rhythm. Lungs clear to auscultation bilaterally. Abdomen is soft, nontender, with positive bowel sounds. Ambulatory in ED. Psychiatric examination does reveal intermittent aggression towards staff. Const Vital Signs: 06/13/24 10:20 06/13/24 14:00 06/13/24 15:38 Temperature 97.7 F L 98 F Temperature Source Temporal Pulse Rate 75 89 Respiratory Rate 16 16 Blood Pressure 103/77 115/92 H 115/92 H Blood Pressure Mean 85 99 99 Pulse Ox 97 99 Oxygen Delivery Method Room Air 06/13/24 16:00 Temperature Temperature Source Pulse Rate Respiratory Rate Blood Pressure 132/98 H Blood Pressure Mean 109 Pulse Ox Oxygen Delivery Method MDM MDM MDM Narrative Medical decision making narrative: His caregiver does state that he does not like needles and will need assistance in obtaining laboratory work and IV placement. Additionally, RN discussed with his brother, Pb, that he will require intramuscular medications. He states reportedly that this has happened previously and is agreeable to him receiving intramuscular injections for sedation. Initially patient given Geodon 20 mg intramuscularly but was still combative with staff. He was given additional 2 mg of Ativan. He did briefly require 4 point leather restraints as he started swinging his arms and attempting to strike staff. For both safety of the patient and staff, he was placed in the restraints and blood work was obtained. Later, I had a lengthy discussion with his brother who is his DURABLE POWER OF AUTO BODY MECHANIC APPRENTICE/guardian, Pb, who agrees with obtaining laboratory work and/or imaging, and I did discuss with him observation for palliative care and hospice consult. Regardless of what was found today, it may be getting to the point where although he is DO NOT RESUSCITATE Comfort Care arrest currently, that this be changed to DO NOT RESUSCITATE comfort care only. I reviewed his laboratory work and he has an elevated white count of 35.9 but is lower than previous at 43 consistent with his lymphoma. Hemoglobin 12.6 with platelet count 240. Electrolyte panel shows sodium of 133, and has had intermittent hyponatremia in the past. Lactic acid normal at 1.2. Lipase normal at 29 so I doubt pancreatitis. I reviewed the radiology report of the CT of the abdomen pelvis and he has diffuse adenopathy consistent with lymphoma. He has a dilated common bile duct and while they are suggesting MRCP, I do not feel this is a procedure the patient will tolerate. Correlation with his LFTs show no evidence of elevation of his AST, ALT, and alk phos. Hence, I think it is probably more of a chronic type of problem. Patient was discussed with social work. I discussed the patient with shock, his brother and guardian who agrees with observation for palliative care and more than likely hospice consultation to make him DNR comfort care only. I will discuss patient with the hospitalist for observation. Patient is in stable condition. In discussion with the hospitalist, it was felt that he would be better served for social work to arrange hospice evaluation/enrollment at the [facility]. I discussed this with his brother as well. Instead of observing the patient, patient will be discharged after home hospice evaluation and palliative care evaluation is arranged by social work. Disposition is discharged to [facility] in stable condition. History & Record Review Discussion w/independent historian: Patient and Other (car worker helper) Lab Data Attestation: I reviewed the patient's lab results. Labs: Laboratory Results - last 24 hr 06/13/24 13:10 WBC 35.9 H* RBC 4.21 L Hgb 12.6 L Hct 37.0 L MCV 87.9 MCH 29.9 MCHC 34.1 RDW Std Deviation 48.1 H RDW Coeff of Heath 15.3 H Plt Count 240 MPV 11.0 Immature Gran % (Auto) 0.300 Neut % (Auto) 13.7 L Lymph % (Auto) 73.3 H [place] % (Auto) 5.5 Eos % (Auto) 6.9 H Baso % (Auto) 0.3 Absolute Neuts (auto) 4.9 Absolute Lymphs (auto) 26.32 H Nucleated RBC % 0.1 Diff Path Review May foll Platelet Estimate A Sodium 133 L Potassium 4.6 Chloride 100 Carbon Dioxide 31.0 Anion Gap 2 L BUN 17 Creatinine 1.05 Est GFR (MDRD) Af Amer 91 Est GFR (MDRD) Non-Af 75 BUN/Creatinine Ratio 16.2 Glucose 97 Lactic Acid 1.2 Calcium 9.3 Total Bilirubin 0.50 AST 21 ALT 21 Alkaline Phosphatase 91 Total Protein 7.4 Albumin 3.5 Globulin 3.9 Albumin/Globulin Ratio 0.9 Lipase 29 Radiography Diagnostic Testing: Clinical Impression(s) from Imaging Studies Abdomen/Pelvis CT 06/13/24 10:34 IMPRESSION: 1. Unchanged adenopathy associated with lymphoma. 2. Unchanged biliary ductal dilatation. Correlate with LFTs and consider MRCP as clinically indicated. 3. Unchanged moderate pericardial effusion, incompletely imaged. Remaining examination is also stable. Electronically Signed: Gregg Vaca MD at 15:15 EST , Management Discussion w/another healthcare provider: Hospitalist and farmworker grain/Case management Discharge Plan Triage Chief Complaint: GI Bleed ED Provider: Reese Cota Dx/Rx/DC Orders Clinical Impression: Lymphadenopathy, Intellectual disability, Lymphoma, Coffee ground vomiting, DNR (do not resuscitate) discussion Instructions: What Is Hospice?, Starting Hospice, ED Upper GI Bleeding (Stable), ED Vomiting (Adult) Prescriptions: No Action lisinopril 10 MG tablet 10 mg PO DAILY Patient Comments: Blood pressure pantoprazole 40 mg Tablet,Delayed Release (Dr/Ec) 40 mg PO BID Qty: 0 0RF potassium chloride 20 mEq tablet extended release 20 meq PO BID Qty: 30 0RF amlodipine 5 mg tablet 5 mg PO DAILY Qty: 30 0RF ferrous sulfate [FeroSul] 325 mg (65 mg iron) tablet 325 mg PO BID docusate sodium 100 mg capsule 100 mg PO BID fluticasone propionate 50 mcg/actuation spray,suspension 1 spray INTRANASAL DAILY Patient Comments: [NO ORIGINAL SIG] nystatin 100,000 unit/gram cream 1 applic topical BID loratadine 10 mg tablet 10 mg PO DAILY allopurinol 300 mg Tablet 300 mg PO DAILYCM 30 Days Qty: 30 0RF doxycycline hyclate 100 mg capsule 100 mg PO BID Qty: 14 0RF furosemide [Lasix] 40 mg tablet 40 mg PO DAILY multivitamin Tablet 1 tab PO DAILY amoxicillin-pot clavulanate 875-125 mg tablet 875 mg PO Q12H Qty: 20 0RF Primary Care Provider: Anthony Vang Referrals: Anthony Vang MD [Primary Care Provider] - Activity Restrictions/Additional Instructions: Have your hospice enrollment/evaluation performed at the [facility]. Print Language: Senegalese Disposition Disposition: Home, Self Care
[2024-06-13 13:46] LABS: ALB/GLOB Ratio 0.9 RATIO (0.9-2.4); AST(SGOT) 21 U/L (15-37); Alanine Aminotransfer ALT/SGPT 21 U/L (16-61); Albumin, Serum 3.5 g/dL (3.2-5.0); Alkaline Phosphatase 91 U/L (45-117); Anion Gap 2 (5-15); BUN 17 mg/dL (7-18); BUN/Creat Ratio 16.2 RATIO (10-20); Calcium,Total 9.3 mg/dL (8.5-10.1); Chloride 100 mmol/L (98-107); Creatinine, Serum 1.05 mg/dL (0.70-1.30); EST Glomerular Filtration Rate 75 mL/min (>60); Est Glom Filt Rate - Afr Amer 91 mL/min (>60); Globulin 3.9 g/dL (2.2-4.2); Glucose 97 mg/dL (74-106); Lipase 29 U/L (13-75); Potassium 4.6 mmol/L (3.5-5.1); Protein, Total 7.4 g/dL (6.4-8.2); Sodium Level 133 mmol/L (136-145)
[2024-06-13 13:49] LABS: Lactic Acid 1.2 mmol/L (0.4-1.9)
[2024-06-13 14:00] VITALS: BP 115/92
[2024-06-13 14:17] LABS: Platelet Estimate A (ADEQ)
[2024-06-13 14:18] LABS: Differential Indicated SCAN CRITERIA MET
[2024-06-13 15:38] VITALS: BP 115/92; PULSE 89; RESP 16; TEMP 36.6; O2SAT 99
--- NOTE | 2024-06-13 15:48 | HP.PCM.HOS_ITS ---
HPI - General HPI Narrative ALLEY FORTE, is a 64 M who presents [facility] Medical History Anxiety Kidney disease GERD (gastroesophageal reflux disease) Non-smoker Intellectual disability Melanoma HTN (hypertension) Stasis dermatitis of both legs Ulcer of right lower extremity with fat layer exposed Cellulitis of both lower extremities Edema of both legs Noncompliance Ulcer of left lower leg Home Medications ?Medication ?Instructions ?Recorded ?Last Taken ?Type lisinopril 10 mg tablet 10 mg PO DAILY BP 12/15/16 10/08/21 History amlodipine 5 mg tablet 5 mg PO DAILY #30 tabs 09/09/23 Unknown Rx pantoprazole 40 mg tablet,delayed 40 mg PO BID #0 tabs 09/09/23 Unknown Rx release potassium chloride 20 mEq 20 meq PO BID #30 tabs 09/09/23 Unknown Rx tablet,extended release furosemide 40 mg tablet (Lasix) 40 mg PO DAILY 11/18/23 Unknown History multivitamin 1 tab PO DAILY 11/18/23 Unknown History docusate sodium 100 mg capsule 100 mg PO BID 01/28/24 Unknown History ferrous sulfate 325 mg (65 mg 325 mg PO BID 01/28/24 Unknown History iron) tablet (FeroSul) fluticasone propionate 50 1 spray intranasal DAILY 01/28/24 Unknown History mcg/actuation nasal spray,suspension loratadine 10 mg tablet 10 mg PO DAILY 01/28/24 Unknown History nystatin 100,000 unit/gram topical 1 applic topical BID 01/28/24 Unknown History cream allopurinol 300 mg tablet 300 mg PO DAILYCM 30 days #30 tabs 02/01/24 Unknown Rx doxycycline hyclate 100 mg capsule 100 mg PO BID #14 caps 03/02/24 Unknown Rx amoxicillin 875 mg-potassium 875 mg PO Q12H #20 TABLETS 04/05/24 Unknown Rx clavulanate 125 mg tablet Allergy/AdvReac Type Severity Reaction Status Date / Time No Known Allergies Allergy Verified 06/06/24 23:06 Surgical History History of skin graft H/O melanoma excision Social History Smoking Status: Never smoker Vital Signs Vital Signs Vital Signs: 06/13/24 10:20 06/13/24 14:00 06/13/24 15:38 Temperature 97.7 F L 98 F Temperature Source Temporal Pulse Rate 75 89 Respiratory Rate 16 16 Blood Pressure 103/77 115/92 H 115/92 H Blood Pressure Mean 85 99 99 Pulse Ox 97 99 Oxygen Delivery Method Room Air Results Lab / Micro Data 06/13/24 13:10 06/13/24 13:10 Labs: Laboratory Results - last 24 hr 06/13/24 13:10: WBC 35.9 H*, RBC 4.21 L, Hgb 12.6 L, Hct 37.0 L, MCV 87.9, MCH 29.9, MCHC 34.1, RDW Std Deviation 48.1 H, RDW Coeff of Heath 15.3 H, Plt Count 240, MPV 11.0, Immature Gran % (Auto) 0.300, Neut % (Auto) 13.7 L, Lymph % (Auto) 73.3 H, Ward % (Auto) 5.5, Eos % (Auto) 6.9 H, Baso % (Auto) 0.3, Absolute Neuts (auto) 4.9, Absolute Lymphs (auto) 26.32 H, Nucleated RBC % 0.1, Diff Path Review October, Platelet Estimate A, Sodium 133 L, Potassium 4.6, Chloride 100, Carbon Dioxide 31.0, Anion Gap 2 L, BUN 17, Creatinine 1.05, Est GFR (MDRD) Af Amer 91, Est GFR (MDRD) Non-Af 75, BUN/Creatinine Ratio 16.2, Glucose 97, Lactic Acid 1.2, Calcium 9.3, Total Bilirubin 0.50, AST 21, ALT 21, Alkaline Phosphatase 91, Total Protein 7.4, Albumin 3.5, Globulin 3.9, Albumin/Globulin Ratio 0.9, Lipase 29 Imaging Radiology Impression Abdomen/Pelvis CT 06/13/24 10:34 IMPRESSION: 1. Unchanged adenopathy associated with lymphoma. 2. Unchanged biliary ductal dilatation. Correlate with LFTs and consider MRCP as clinically indicated. 3. Unchanged moderate pericardial effusion, incompletely imaged. Remaining examination is also stable. Electronically Signed: Gregg Vaca MD at 15:15 EST ,
[2024-06-13 16:00] VITALS: BP 132/98
[2024-06-14 14:08] LABS: Pathologist Review Reviewed
== END 2024-06-13 16:37 | disposition home or self-care (01) ==
PROVIDERS: Emergency Provider Emergency Medicine; PCP Family Medicine; Visit Provider Emergency Medicine
DX: R59.9 Enlarged lymph nodes, unspecified (principal); C85.90 Non-Hodgkin lymphoma, unspecified, unspecified site; K92.2 Gastrointestinal hemorrhage, unspecified; F79 Unspecified intellectual disabilities; E86.0 Dehydration; R11.10 Vomiting, unspecified; I10 Essential (primary) hypertension; K21.9 Gastro-esophageal reflux disease without esophagitis; Z66 Do not resuscitate
CPT/HCPCS: 74177; 80053; 83605; 83690; 85025; 96372; 99284; Q9967; A4216; J3486

== ENCOUNTER 2024-07-17 12:46 | Emergency (ER) | payer MEDICARE, MEDICAID, SELFPAY ==
[2024-07-17 12:47] VITALS: BP 105/54; PULSE 87; RESP 18; TEMP 37; O2SAT 98
== END 2024-07-17 15:24 | disposition left against medical advice (07) ==
LOC: ED 15:34
PROVIDERS: PCP Family Medicine
DX: Z53.21 Procedure and treatment not carried out due to patient leaving prior to being seen by health care provider (principal)

== ENCOUNTER 2024-10-10 11:51 | Inpatient (IN) | payer MEDICARE, MEDICAID, SELFPAY ==
[2024-10-10] VITALS (16 sets, daily range): BP systolic 80–151; BP diastolic 46–109; PULSE 74–88; RESP 9–18; TEMP 36.4–36.8; O2SAT 12–99; BMI 38.0; BMI 37.1
--- NOTE | 2024-10-10 12:01 | CT_ITS ---
PROCEDURE: SINUS/FACIAL BONE WITH CONTRAS, 10/10/2024 REASON FOR EXAM: FACIAL CELLULITIS WITH ABSCESS VERSUS PAROTID GLAN TECHNIQUE: CT sinuses was performed with IV contrast. Multiplanar reformats were generated. IV contrast: 100 mL Isovue-300 RADIATION DOSE SUMMARY: CTDlvol: 29.38 mGy DLP: 664.99 mGycm One or more dose reduction techniques were used (e.g., Automated exposure control, adjustment of the mA and/or kV according to patient size, use of iterative reconstruction technique). COMPARISON: and prior FINDINGS: Mild artifact through the level of the oral cavity and oropharynx related to dental amalgam. Problem specific findings: Redemonstrated asymmetric enlargement and relative hyperenhancement involving the LEFT parotid gland, difficult to measure, roughly 5.8 cm craniocaudal. Extent of soft tissue abnormality is increased as compared with 04/05/2024 and 12/21/2022. A previous fluid attenuating region cranially seen on 04/05/2024 is no longer present, with a 1.2 x 1.5 cm fluid attenuating/nonenhancing region more inferiorly new from that time. Asymmetric subcutaneous stranding in the overlying face. Grossly unremarkable RIGHT parotid. Submandibular glands are partially imaged, grossly unremarkable where visualized. Similar mild bilateral cervical lymphadenopathy, with nodes up to 13 mm short axis on the LEFT and 11 mm on the RIGHT. Similar punctate calcification along the inferior most parotid gland present from at least 12/21/2022 slight asymmetric thickening of the nearby LEFT platysma. Cerumen in versus soft tissue thickening in the immediately adjacent LEFT external auditory canal. Presumed cerumen in the RIGHT external auditory canal. Operative changes: None. Paranasal sinuses: Mucous retention cysts and/or polyps in the LEFT maxillary sinus. Mild mucosal thickening in the anterior ethmoid air cells. Trace mucosal thickening in the inferior RIGHT maxillary sinus. No air-fluid levels. Mastoid air cells are clear.. Outflow tracts: Unable to evaluate diminutive posterior sphenoethmoidal recesses, favored patent given aeration of the sinuses. Patent ostiomeatal complexes and frontal recesses. Other: Leftward nasal septal deviation of roughly 6 mm. Paradoxical curvature of the RIGHT middle turbinate. Grossly unremarkable globes/orbits. Demineralization. Prominent of the extra-axial fluid posteriorly along the bilateral cerebellar hemispheres which are slightly anteriorly displaced, unusual appearance, but similar to 12/21/2022. Appearance could reflect chronic hygroma or perhaps arachnoid cysts. Nasal septum near midline. No keily bullosa. No infraorbital air cells. No [place] air cell. No sphenoid sinus septation on the bony carotid canals. No supraorbital pneumatization. Olfactory fossa and fovea ethmoidalis heights are symmetric. Lamina papyracea is intact. Mastoid air cells are clear. CT/Sinus/Facial Bone WITH Contras IMPRESSION: 1. 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 A central hypoenhancing/non enhancing area measuring 1.5 cm could reflect abscess and/or a necrotic component. Inflammatory changes in the surrounding f k[place] may be reactive or reflect cellulitis. Trace thickening of the LEFT platysma may reflect myositis. Recommend clinical follo w-up including ENT consultation. Nonurgent tissue sampling should be considered given long-term persistence of these findings and suspicion for neoplasm. If neoplasm is confirmed, suspicion for perineural spread would be high given the local extent of the findings, but would be best evaluated by outpatient MRI face with and without contrast if neoplasm is confirmed. 2. Mild [id number] cervical lymphadenopathy may be reactive or ref lect metastatic disease. Recommend clinical follow-up to ensure resolution. Note that cervical and mediastinal lymphadenop athy below the field of view were also present on CT neck 04/05/2024, increasing the index of suspicion for metastatic disease gi aiden the severity of partially imaged mediastinal lymphadenopathy seen at that time. 3. Soft tissue thickening and/or cerumen in the immediately adjacent LEFT exter nal auditory canal with associated narrowing. Unable to exclude direct neoplastic extension from the adjacent parotid gland l esion. Correlate with exam. 4. Additional description as above. Reading Location: [id number]
[2024-10-10] MEDS: Ketamine HCl 500 MG/5 ML Vial 141 MG IM (12:13)
--- NOTE | 2024-10-10 12:14 | ED.RN ---
THIS NURSE ATTEMPTED IV BEFORE UTILIZING MEDICATION. THIS PT BEGAN GETTING AGITATED SCREAMING AT THIS NURSE AND ELMER RN. PT BEGAN SWINGING. THIS NURSE ATTEMPTED VERBAL DEESCALATION. ATTEMPT UNSUCCESSFUL. THIS NURSE ADMINISTERED MEDICATION
--- NOTE | 2024-10-10 12:20 | EX.ED.DYSGE1 ---
HPI History of Present Illness Chief Complaint: Abscess Detail of Chief Complaint: Facial redness and swelling preauricular area Informant: other Limited: dementia Onset/Context/Timing Onset: Today Context: Sudden Onset Timing: Continuous Quality: Redness and swelling over the left parotid region/preauricular area Location: Previously described Current Severity: Unable to determine since patient will not answer questions. Maximum Severity: Unable to determine Worsened by: Unknown Relieved by: Nothing Associated Symptoms Associated Symptoms: Unable to determine Narrative Narrative: Patient is 64-year-old male. He was discharged from [facility] yesterday. When I asked the woman that accompanied him she was not able to tell me any other than she handed me a piece of paper which revealed that he had chronic kidney disease hypertension. No other history is available. Prior similar symptoms: No Recent Illness/Hospitalization: Yes [facility] Medical History Anxiety Kidney disease GERD (gastroesophageal reflux disease) Non-smoker Intellectual disability Melanoma HTN (hypertension) Stasis dermatitis of both legs Ulcer of right lower extremity with fat layer exposed Cellulitis of both lower extremities Edema of both legs Noncompliance Ulcer of left lower leg Medical History no medical history Home Medications ?Medication ?Instructions ?Recorded ?Last Taken ?Type lisinopril 10 mg tablet 10 mg PO DAILY BP 12/15/16 10/10/24 History amlodipine 5 mg tablet 5 mg PO DAILY #30 tabs 09/09/23 10/10/24 Rx pantoprazole 40 mg tablet,delayed 40 mg PO BID #0 tabs 09/09/23 10/10/24 Rx release potassium chloride 20 mEq 20 meq PO BID #30 tabs 09/09/23 10/10/24 Rx tablet,extended release furosemide 40 mg tablet (Lasix) 40 mg PO DAILY 11/18/23 10/10/24 History multivitamin 1 tab PO DAILY 11/18/23 10/10/24 History docusate sodium 100 mg capsule 100 mg PO BID PRN constipation 01/28/24 Unknown History ferrous sulfate 325 mg (65 mg 325 mg PO BID 01/28/24 10/10/24 History iron) tablet (FeroSul) fluticasone propionate 50 1 spray intranasal DAILY PRN nasal 01/28/24 Unknown History mcg/actuation nasal congestion spray,suspension loratadine 10 mg tablet 10 mg PO DAILY 01/28/24 10/10/24 History allopurinol 300 mg tablet 300 mg PO DAILYCM 30 days #30 tabs 02/01/24 10/10/24 Rx acetaminophen 500 mg tablet 1,000 mg PO TID PAIN 10/10/24 10/10/24 History montelukast 10 mg tablet 10 mg PO QHS 10/10/24 10/09/24 History mupirocin 2 % topical ointment 1 applic topical TID LEGS AND 10/10/24 Unknown History FOREHEAD quetiapine 50 mg tablet 50 mg PO TID 10/10/24 10/10/24 History sertraline 50 mg tablet 50 mg PO DAILY 10/10/24 10/10/24 History Allergy/AdvReac Type Severity Reaction Status Date / Time No Known Allergies Allergy Verified 10/10/24 11:57 Family History no significant family his Surgical History History of skin graft H/O melanoma excision Surgical History no surgical history Social History Smoking Status: Never smoker ROS ROS ED Review of Systems ROS Unobtainable: due to mental status and other Details: Patient has cognitive disability as baseline EXAM Physical Exam Const Vital Signs: 10/10/24 11:53 10/10/24 11:56 10/10/24 13:22 Temperature 97.8 F 97.8 F 97.5 F L Temperature Source Oral Oral Axillary Pulse Rate 84 80 75 Respiratory Rate 18 18 12 Blood Pressure 108/60 105/72 80/46 L Blood Pressure Mean 76 83 57 Pulse Ox 98 99 93 Oxygen Delivery Method Room Air Room Air 10/10/24 13:30 10/10/24 13:38 10/10/24 13:45 Temperature Temperature Source Pulse Rate 77 83 74 Respiratory Rate 11 L 12 11 L Blood Pressure 90/53 L 104/54 L 92/55 L Blood Pressure Mean 63 68 68 Pulse Ox 95 90 94 Oxygen Delivery Method 10/10/24 14:00 10/10/24 14:00 10/10/24 14:05 Temperature 97.7 F L Temperature Source Axillary Pulse Rate 88 77 Respiratory Rate 12 11 L 16 Blood Pressure 90/62 90/62 Blood Pressure Mean 72 71 Pulse Ox 95 12 Oxygen Delivery Method Room Air 10/10/24 14:15 10/10/24 14:54 10/10/24 14:55 Temperature Temperature Source Pulse Rate Respiratory Rate 10 L 9 L 10 L Blood Pressure 101/67 96/66 107/70 Blood Pressure Mean 77 77 83 Pulse Ox 95 93 94 Oxygen Delivery Method 10/10/24 15:00 10/10/24 16:00 Temperature Temperature Source Pulse Rate 78 85 Respiratory Rate 10 L 14 Blood Pressure 109/73 109/73 Blood Pressure Mean 84 85 Pulse Ox 97 95 Oxygen Delivery Method Positive well nourished and well developed Constitutional Narrative: BMI is 38.1. Vital signs are unremarkable. General Appearance ED: well developed; Negative for pallor HEENT Reports TM's clear and moist mucous membranes HEENT Narrative: Head is atraumatic and not normocephalic. He has multiple scars. Woman is uncertain what those scars are due to. She did inform me that he picks at his skin and recently he has scabs on his scalp. There is swelling over the left parotid glands. There is erythema. There is firmness question of slight fluctuance. This is very tender since patient grimaces and move my hand away. Tympanic Membrane ED: Yes TM's clear Eyes PERRL and EOMs intact bilaterally General Eye ED: Negative for pale conjunctiva or scleral icterus Neck no lymphadenopathy, supple and no JVD Resp normal respiratory effort and clear to auscultation bilaterally Cardio regular rate, regular rhythm, S1 normal heart sound and no murmurs GI normal to inspection, nondistended, normoactive bowel sounds, non-tender and non-distended; Negative for hepatosplenomegaly Neuro No oriented x3 and CN's II-XII intact bilaterally Sensorium / Orientation: Negative for alert Psych Psych Narrative: Patient has a flat affect. Skin No no rashes or lesions noted, No no wounds and skin turgor normal General Skin Exam: Negative for jaundice or pallor Sepsis Attestation Sepsis Alert: Yes Sepsis Attestation: Agree w/Sepsis Date exam was performed: 10/10/24 Time exam was performed: 13:39 Possible Source of Sepsis: Skin/soft tissue Sepsis Organ Dysfunction Criteria Present: SBP < 90 mmHg or MAP < 65 mmHg Fluid Resuscitation Fluid resuscitation indicated?: Yes Fluid Resuscitation ordered: 30 ml/kg fluid bolus ordered Amount of fluid ordered: 3,060 Sepsis Note Date exam was performed: 10/10/24 Time exam was performed: 15:50 Sepsis Attestation: Sepsis re-evaluation was performed Response to fluids: Fluid responsive hypotension MDM MDM MDM Narrative Medical decision making narrative: Differential diagnosis would include facial abscess with cellulitis, parotid gland abscess Patient has been to the ER in the past. He has been combative and very difficult to establish IV. With this history tube milligrams per kilogram of ketamine IM was ordered for chemical control to allow nurses to place IV and obtain CT of the face with IV contrast if there is no contraindication i.e. abnormal renal function. Appropriate blood work was ordered. Reviewed Dr. Rody Gregory's note. Patient was felt to be better served for outpatient workup and possible hospice evaluation. This was discussed with hospitalist Dr. Charles. History & Record Review Additional record(s) reviewed:: Prior inpatient record, Prior outpatient record, Prior ED visit and Prior labs Lab Data Attestation: I reviewed the patient's lab results. Lab results narrative: White count is elevated 20.9 thousand with shift. There is no bandemia. He is anemic with an H&H of 9.9 and 30.1. Indices are unremarkable. Electrolyte panel reveals elevated BUN/creatinine of 21 and 1.23. This is slight elevation from his baseline. Glucose is elevated 133 with a normal CO2 anion gap. Lactate was normal at 1.6. Labs: Laboratory Results - last 24 hr 10/10/24 12:24 WBC 20.9 H RBC 3.18 L Hgb 9.9 L Hct 30.1 L MCV 94.7 H MCH 31.1 MCHC 32.9 RDW Std Deviation 55.2 H RDW Coeff of Heath 15.9 H Plt Count 224 MPV 11.1 Immature Gran % (Auto) 0.400 Neut % (Auto) 18.2 L Lymph % (Auto) 73.9 H [place] % (Auto) 5.4 Eos % (Auto) 1.7 Baso % (Auto) 0.4 Absolute Neuts (auto) 3.8 Absolute Lymphs (auto) 15.42 H Nucleated RBC % 0.1 [address] Review May foll Sodium 137 Potassium 5.0 Chloride 103 Carbon Dioxide 24.4 Anion Gap 10 BUN 21 H Creatinine 1.23 H Estim Creat Clear Calc 75.53 Est GFR (MDRD) Non-Af 65 BUN/Creatinine Ratio 17.2 Glucose 133 H Lactic Acid 1.6 Calcium 8.9 Once I time to review patient's records. There is no history of congestive heart failure. His renal failure is minimal. He will receive a full 30 cc/kg bolus. He was empirically started on Unasyn and blood cultures were added. Radiography Diagnostic Testing: Clinical Impression(s) from Imaging Studies Facial/Sinus 10/10/24 12:01 IMPRESSION: 1. 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 A central hypoenhancing/nonenhancing area measuring 1.5 cm could reflect abscess and/or a necrotic component. Inflammatory changes in the surrounding face may be reactive or reflect cellulitis. Trace thickening of the LEFT platysma may reflect myositis. Recommend clinical follow-up including ENT consultation. Nonurgent tissue sampling should be considered given long-term persistence of these findings and suspicion for neoplasm. If neoplasm is confirmed, suspicion for perineural spread would be high given the local extent of the findings, but would be best evaluated by outpatient MRI face with and without contrast if neoplasm is confirmed. 2. Mild [id number]-[id number]-RIGHT cervical lymphadenopathy may be reactive or reflect metastatic disease. Recommend clinical follow-up to ensure resolution. Note that cervical and mediastinal lymphadenopathy below the field of view were also present on CT neck 04/05/2024, increasing the index of suspicion for metastatic disease given the severity of partially imaged mediastinal lymphadenopathy seen at that time. 3. Soft tissue thickening and/or cerumen in the immediately adjacent LEFT external auditory canal with associated narrowing. Unable to exclude direct neoplastic extension from the adjacent parotid gland lesion. Correlate with exam. 4. Additional description as above. Reading Location: [id number] CT of the face with IV contrast reveals inflammatory changes on the left and I believe there is a parotid gland abscess. Awaiting formal read by radiologist. Management Discussion w/another healthcare provider: Hospitalist (Case discussed with Dr. Tevin Purvis. Full admit PCU. He was informed that Dr. Villalba did review the films and that it was appropriate to keep patient at [facility]) Treatment and Re-Evaluation :: I was informed by nurse that 1317 that patient's systolic pressure 70. 500 cc bolus of normal saline was ordered since he has history of kidney disease and there is concern for fluid overload. Comments:: Spoke with Jessica one of the directors at the facility Mr. Joseph resides at. She states his oncologist Dr. Tabares. Temp was made to contact him. There was no answer at the office. She also states she is seen at [facility]. Will contact them regarding the CAT scan findings and determine what best to do for patient. 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 Tyler Owens. He requested to look at the CAT scan and call me back.), Arranging Admission or Transfer, Performing Direct Patient Care at Bedside and - (Spoke with Dr. Tyler Owens. He was last seen January [address] Berhane Cast. He has had infections before and resolved with IV antibiotics. He does not believe it will need an I&D at this time. In light of this discussion we will contact hospitalist for admission for sepsis.) Discharge Plan Triage Chief Complaint: Abscess ED Provider: Casey Sidhu Dx/Rx/DC Orders Clinical Impression: Sepsis, Acute hypotension, Cellulitis of face, Acute suppurative parotitis Prescriptions: No Action lisinopril 10 MG tablet 10 mg PO DAILY Patient Comments: Blood pressure pantoprazole 40 mg Tablet,Delayed Release (Dr/Ec) 40 mg PO BID Qty: 0 0RF potassium chloride 20 mEq tablet extended release 20 meq PO BID Qty: 30 0RF amlodipine 5 mg tablet 5 mg PO DAILY Qty: 30 0RF ferrous sulfate [FeroSul] 325 mg (65 mg iron) tablet 325 mg PO BID docusate sodium 100 mg capsule 100 mg PO BID PRN (Reason: constipation) fluticasone propionate 50 mcg/actuation spray,suspension 1 spray INTRANASAL DAILY PRN (Reason: nasal congestion) Patient Comments: [NO ORIGINAL SIG] loratadine 10 mg tablet 10 mg PO DAILY allopurinol 300 mg Tablet 300 mg PO DAILYCM 30 Days Qty: 30 0RF furosemide [Lasix] 40 mg tablet 40 mg PO DAILY multivitamin Tablet 1 tab PO DAILY acetaminophen 500 mg tablet 1,000 mg PO TID montelukast 10 mg tablet 10 mg PO QHS mupirocin 2 % ointment 1 applic topical TID sertraline 50 mg tablet 50 mg PO DAILY quetiapine 50 mg tablet 50 mg PO TID Primary Care Provider: Anthony Vang Referrals: Anthony Vang MD [Primary Care Provider] - Print Language: Egyptian Disposition Disposition: Acute Care Hospital [facility]
[2024-10-10 12:44] LABS: Absolute Lymphocyte Count 15.42 X10^3/uL (0.83-4.51); Absolute Neutrophil Count 3.8 X10^3/uL (2.0-7.7); Basophil# 0.08 X10^3/uL; Basophil% 0.4 % (0-1); Eosinophil# 0.36 X10^3/uL; Eosinophils% 1.7 % (0-5); Hematocrit 30.1 % (40-54); Hemoglobin 9.9 g/dL (13.0-16.5); Lymphocyte # 15.42 X10^3/ul (0.83-4.51); Lymphocyte % 73.9 % (19-41); Mean Corp Hgb Conc 32.9 g/dL (32-36); Mean Corpuscular Hgb 31.1 pg (27.0-32.0); Mean Corpuscular Volume 94.7 fL (80-94); Mean Platelet Vol. 11.1 fl (6.2-12.0); Monocyte# 1.13 X10^3/uL; Monocyte% 5.4 % (0-10); NRBC Flagged by Analyzer 0.1 % (0-5); Neutrophil # 3.79 X10^3/uL (2.7-7.7); Neutrophil % 18.2 % (47-70); POSITIVE DIFFERENTIAL YES; Platelet Count 224 K/mm3 (150-450); RBC Distribution Width CV 15.9 % (11.6-14.6); RBC Distribution Width SD 55.2 fl (35.1-43.9); Red Blood Count 3.18 M/mm3 (4.6-6.2); White Blood Count 20.9 K/mm3 (4.4-11.0)
[2024-10-10 13:20] LABS: Anion Gap 10 (5-15); BUN 21 mg/dL (4-19); BUN/Creat Ratio 17.2 RATIO (10-20); Calcium,Total 8.9 mg/dL (7.6-11.0); Carbon Dioxide 24.4 mmol/L (21.0-32.0); Chloride 103 mmol/L (98-108); Creatinine, Serum 1.23 mg/dL (0.70-1.20); EST Glomerular Filtration Rate 65 (>60); Estimated Creatinine Clearance 75.53 ml/min (50-250); Glucose 133 mg/dL (70-99); Sodium Level 137 mmol/L (133-145)
[2024-10-10] MEDS: 0.9% Normal Saline (500mL Bag) 500 ML 1000 ML IV (13:24)
[2024-10-10 13:26] LABS: Lactic Acid 1.6 mmol/L (0.0-2.0)
[2024-10-10 13:27] LABS: Differential Indicated SCAN CRITERIA MET
--- NOTE | 2024-10-10 13:27 | ED.RN ---
Received report from Mel Whitt RN. Walked into pt room for assessment. placed on monitor due to ketamine administration. Pt BP 80s systolic. Notified Dr. Nahum CRAWLEY about pt BP dropping. Received order for 500cc bolus. Placed in Trendelenburg.
[2024-10-10] MEDS: 0.9% Normal Saline (1000mL) 1,000 ML 999 ML IV ×3 (14:34→16:52)
[2024-10-10] MEDS: Ampicillin/Sulbactam 3 GM in 0.9% Normal Saline (100mL MB+) 100 ML IV (14:34)
--- NOTE | 2024-10-10 16:09 | ED.RN ---
called CT and talked with Jesica. stated they called company to determine how much longer CT would take to have official read x2.
--- NOTE | 2024-10-10 17:04 | ED.RN ---
updated legal guardian about pt admission and status
--- NOTE | 2024-10-10 17:18 | HP.PCM.HOS_ITS ---
[facility] - General General Date of Service: 10/10/24 Chief Complaint: facial swelling [facility] Narrative ALLEY FORTE, is a 64 M who presents with facial swelling. Patient is minimally verbal and is unable to history and patient has a worker from his care home who was not able to provide much information as well. The patient presents with left facial swelling and was hypotensive. Patient received 30 cc/kg of IV fluid and his pressure improved. He had a CAT scan that showed findings suspicious for infiltrative parotid neoplasm with or without superimposed parotitis. A central hypoenhancing/nonenhancing area measuring 1.5 cm could reflect an abscess and/or necrotic component. Inflammatory changes in the surrounding face may be reactive or reflect cellulitis. Dr. Sidhu, the emergency room, reached out to ENT with Dr. Owens and reviewed the data with him. Dr. Owens felt comfortable with the patient being admitted here and ENT seeing the patient in consultation. Addition to the IV fluids patient received patient received Unasyn. Additionally there is a report that the patient was just discharged from [facility] yesterday. I attempted using [employer] but that site was not nonfunctional at this time. [facility] Medical History Anxiety Kidney disease GERD (gastroesophageal reflux disease) Non-smoker Intellectual disability Melanoma HTN (hypertension) Stasis dermatitis of both legs Ulcer of right lower extremity with fat layer exposed Cellulitis of both lower extremities Edema of both legs Noncompliance Ulcer of left lower leg Medical History no medical history Home Medications ?Medication ?Instructions ?Recorded ?Last Taken ?Type lisinopril 10 mg tablet 10 mg PO DAILY BP 12/15/16 0 10/10/24 History amlodipine 5 mg tablet 5 mg PO DAILY #30 tabs 09/0810/10/24 Rx pantoprazole 40 mg tablet,delayed 40 mg PO BID #0 tabs 09/09/23 10/10/24 Rx release potassium chloride 20 mEq 20 meq PO BID #30 tabs 09/0810/10/24 Rx tablet,extended release furosemide 40 mg tablet (Lasix) 40 mg PO DAILY 4 10/10/24 History multivitamin 1 tab PO DAILY 11/18/23 05/0 11/29 History docusate sodium 100 mg capsule 100 mg PO BID PRN const ipation 01/28/24 Unknown History ferrous sulfate 325 mg (65 mg 325 mg PO BID 01/28/24 0 10/10/24 History iron) tablet (FeroSul) fluticasone propionate 50 1 spray intranasal DAILY PRN nasal 01/28/24 Unknown History mcg/actuation nasal congestion spray,suspension loratadine 10 mg tablet 10 mg PO DAILY 01/28/2411/29 History allopurinol 300 mg tablet 300 mg PO DAILYCM 30 days #3 0 tabs 02/01/24 10/10/24 Rx acetaminophen 500 mg tablet 1,000 mg PO TID PAIN 10/1010/10/24 History montelukast 10 mg tablet 10 mg PO QHS 10/10/24 History mupirocin 2 % topical ointment 1 applic topical TID LE GS AND 10/10/24 Unknown History FOREHEAD quetiapine 50 mg tablet 50 mg PO TID 10/10/24 History sertraline 50 mg tablet 50 mg PO DAILY 10/10/2411/29 History Allergy/AdvReac Type Severity Reaction Status Date / Time No Known Allergies Allergy Verified 10/10/24 11:57 Family History no significant family his unable to obtain Surgical History History of skin graft H/O melanoma excision Surgical History no surgical history Social History Smoking Status: Never smoker ROS Review of Systems ROS Unobtainable: due to encephalopathy Vital Signs Vital Signs Vital Signs: 10/10/24 11:53 10/10/24 11:56 10/10/24 13:22 Temperature 36.6 C 36.6 C 36.4 C L Temperature Source Oral Oral Axillary Pulse Rate 84 80 75 Respiratory Rate 18 18 12 Blood Pressure 108/60 105/72 80/46 L Blood Pressure Mean 76 83 57 Pulse Ox 98 99 93 Oxygen Delivery Method Room Air Room Air 10/10/24 13:30 10/10/24 13:38 10/10/24 13:45 Temperature Temperature Source Pulse Rate 77 83 74 Respiratory Rate 11 L 12 11 L Blood Pressure 90/53 L 104/54 L 92/55 L Blood Pressure Mean 63 68 68 Pulse Ox 95 90 94 Oxygen Delivery Method 10/10/24 14:00 10/10/24 14:00 10/10/24 14:05 Temperature 36.5 C L Temperature Source Axillary Pulse Rate 88 77 Respiratory Rate 12 11 L 16 Blood Pressure 90/62 90/62 Blood Pressure Mean 72 71 Pulse Ox 95 12 Oxygen Delivery Method Room Air 10/10/24 14:15 10/10/24 14:54 10/10/24 14:55 Temperature Temperature Source Pulse Rate Respiratory Rate 10 L 9 L 10 L Blood Pressure 101/67 96/66 107/70 Blood Pressure Mean 77 77 83 Pulse Ox 95 93 94 Oxygen Delivery Method 10/10/24 15:00 10/10/24 16:00 10/10/24 17:11 Temperature 36.4 C L Temperature Source Pulse Rate 78 85 86 Respiratory Rate 10 L 14 13 Blood Pressure 109/73 109/73 111/70 Blood Pressure Mean 84 85 83 Pulse Ox 97 95 96 Oxygen Delivery Method Weight Weight: 116.9 kg Body Mass Index (BMI) 38.0 Physical Exam Const Constitutional Narrative: Awake. Afebrile. Nonverbal. Does follow some simple commands. HEENT normocephalic HEENT Narrative: Dry mucous membranes. Large swelling over the left aspect of his face extending from his mandible and into the anterior portion of his left ear. Very firm and indurated. No appreciable fluctuance. No draining lesions. Eyes Eyes Narrative: No icterus. Neck no lymphadenopathy Neck Narrative: No thyromegaly Resp normal respiratory effort, no retractions, no use of accessory muscles and clear to auscultation bilaterally Cardio regular rate, regular rhythm, S1 normal heart sound and S2 normal heart sound GI normal to inspection, nondistended, normoactive bowel sounds, soft to palpation, non-tender and non-distended Neuro Sensorium / Orientation: awake Results Lab / Micro Data 10/10/24 12:24 10/10/24 12:24 Labs: Laboratory Results - last 24 hr 10/10/24 12:24: WBC 20.9 H, RBC 3.18 L, Hgb 9.9 L, Hct 30.1 L, MCV 94.7 H, MCH 31.1, MCHC 32.9, RDW Std Deviation 55.2 H, RDW Coeff of Heath 15.9 H, Plt Count 224, MPV 11.1, Immature Gran % (Auto) 0.400, Neut % (Auto) 18.2 L, Lymph % (Auto) 73.9 H, [place] % (Auto) 5.4, Eos % (Auto) 1.7, Baso % (Auto) 0.4, Absolute Neuts (auto) 3.8, Absolute Lymphs (auto) 15.42 H, Nucleated RBC % 0.1, Diff Path Review May foll, Sodium 137, Potassium 5.0, Chloride 103, Carbon Dioxide 24.4, Anion Gap 10, BUN 21 H, Creatinine 1.23 H, Estim Creat Clear Calc 75.53, Est GFR (MDRD) Non-Af 65, BUN/Creatinine Ratio 17.2, Glucose 133 H, Lactic Acid 1.6, Calcium 8.9 Imaging Radiology Impression Facial/Sinus 10/10/24 12:01 IMPRESSION: 1. 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 A central hypoenhancing/nonenhancing area measuring 1.5 cm could reflect abscess and/or a necrotic component. Inflammatory changes in the surrounding face may be reactive or reflect cellulitis. Trace thickening of the LEFT platysma may reflect myositis. Recommend clinical follow-up including ENT consultation. Nonurgent tissue sampling should be considered given long-term persistence of these findings and suspicion for neoplasm. If neoplasm is confirmed, suspicion for perineural spread would be high given the local extent of the findings, but would be best evaluated by outpatient MRI face with and without contrast if neoplasm is confirmed. 2. Mild KPDW-[id number]-RIGHT cervical lymphadenopathy may be reactive or reflect metastatic disease. Recommend clinical follow-up to ensure resolution. Note that cervical and mediastinal lymphadenopathy below the field of view were also present on CT neck 04/05/2024, increasing the index of suspicion for metastatic disease given the severity of partially imaged mediastinal lymphadenopathy seen at that time. 3. Soft tissue thickening and/or cerumen in the immediately adjacent LEFT external auditory canal with associated narrowing. Unable to exclude direct neoplastic extension from the adjacent parotid gland lesion. Correlate with exam. 4. Additional description as above. Reading Location: [id number] Assessment & Plan Assessment/Plan (1) Sepsis: PLAN: Present on admission qSOFA of 2 with blood pressure of 80/46 and encephalopathy. Patient received 30 cc/kg of IV fluid and blood pressure responded well. No need for pressors at this time. Patient was seen by myself after the administration IV fluids. Secondary to facial cellulitis/left parotitis with possible abscess/necrotic changes. Follow up cultures. Abx with pip/tazo and vancomycin Reportedly, the patient was just discharged from [facility]. Will request records as I am unable to access [employer] at this time (2) Cellulitis of face: PLAN: cellulitis v acute parotitis with abscess v necrotic changes. ENT consult (Dr. Owens notified and told Dr. Sidhu pt ok to remain here) Previously the patient has had fine-needle aspirations of his parotid gland which has come back negative for malignancy. (3) Encephalopathy: PLAN: Patient is awake minimally verbal. Patient group rooms coordinator states that the patient is normally communicative. I suspect patient is having metabolic cephalopathy due to underlying sepsis cellulitis/parotitis. Avoid potentiating medications such as quetiapine and sertraline for now. PLAN: Plan Chronic conditions * Hypertension: Hold antihypertensives for now given the recent hypotension that the patient had with his underlying sepsis. * Gout: Continue with allopurinol * Anemia: Continue ferrous sulfate VTE prophylaxis with enoxaparin. CODE STATUS Per previous documentation DNRCCA sinceNo intubation. Charges/Coding Visit Charges Inpatient E&M: 75595 Init Hosp L3
[2024-10-10] MEDS: 0.9% Normal Saline (1000mL) 1,000 ML 150 ML IV (18:34)
[2024-10-10 18:40] LABS: Lactic Acid < 1.0 mmol/L (0.0-2.0)
[2024-10-10] MEDS: 0.9% Normal Saline (250mL Bag) 250 ML 15 ML IV (18:45)
[2024-10-10] MEDS: Vancomycin HCl 2,000 MG in 0.9% Normal Saline (500mL Bag) 500 ML 250 MG IV (18:45)
--- NOTE | 2024-10-10 18:57 | PCM.RX.CS ---
Consult Antibiotic Management Pharmacy has been consulted to manage selected antibiotic: Vancomycin Type of Intervention Type of Consult: New start Suspected Infection Suspected Infection: Sepsis and Skin/Soft tissue Labs Labs: Sodium 137 mmol/L (133-145) 10/10/24 12:24 Potassium 5.0 mmol/L (3.3-5.1) 10/10/24 12:24 Chloride 103 mmol/L (98-108) 10/10/24 12:24 Carbon Dioxide 24.4 mmol/L (21.0-32.0) 10/10/24 12:24 Anion Gap 10 (5-15) 10/10/24 12:24 BUN 21 mg/dL (4-19) H 10/10/24 12:24 Creatinine 1.23 mg/dL (0.70-1.20) H 10/10/24 12:24 Est GFR (MDRD) Non-Af 65 (>60) 10/10/24 12:24 BUN/Creatinine Ratio 17.2 RATIO (10-20) 10/10/24 12:24 Glucose 133 mg/dL (70-99) H 10/10/24 12:24 Dosing Weight Weight used for dosin.1 kg Estimated Creatinine Clearance Estimated Creatinine Clearance: 76 ML/MIN Goal Trough Goal Trough: 15-20 mcg/mL Pharmacy Plan for Drug Dosing Pharmacy Plan for Drug Dosing: Give loading dose of 2000mg IV x1, then continue with 1750mg IV q12h per [facility] dosing protocol. Check a trough before the 4th overall dose. Pharmacy Service will continue to monitor and adjust dosing as required. Follow-Up Labs Follow-Up Labs: Trough: Vancomycin Date/Time Labs Ordered Labs to be done on [date and time ordered]: 10/12/24 06:30
[2024-10-10] MEDS: Pantoprazole Sodium 40 MG Tablet PO (20:02)
[2024-10-10] MEDS: Acetaminophen 500 MG Tablet 1000 MG PO (20:02)
[2024-10-10] MEDS: QUEtiapine 25 MG Tablet PO (20:02)
[2024-10-10] MEDS: Piperacil/Tazobactam 3.375 GM in 0.9% Normal Saline (50mL MB+) 50 ML IV (20:59)
[2024-10-11 03:30] VITALS: BP 108/64; PULSE 71; RESP 18; TEMP 36.3; O2SAT 96
[2024-10-11] MEDS: Vancomycin HCl 1,750 MG in 0.9% Normal Saline (500mL Bag) 500 ML 250 MG IV ×2 (05:18→18:51)
--- NOTE | 2024-10-11 05:45 | NURSING ---
Pt refusing to have her labs drawn at this time.
[2024-10-11 08:00] VITALS: BP 109/63; PULSE 72; RESP 16; TEMP 36.4; O2SAT 96
--- NOTE | 2024-10-11 08:03 | PCM.PN.HOSP ---
Reason for Visit Reason for Visit: Diagnoses Sepsis, unspecified organism (10/10/24) Encephalopathy, unspecified (10/10/24) Cellulitis of face (10/10/24) Subjective Subjective More alert today. Objective Data Objective Data Vital Signs: Vital Signs Temp Pulse Resp BP Pulse Ox O2 Del Method 36.3 C L 71 18 108/64 96 Room Air 10/11/24 03:30 10/11/24 03:30 10/11/24 03:30 10/11/24 03:30 10/11/24 03:30 10/11/24 03:30 Oxygen Delivery Method Room Air Weight: 114.1 kg Body Mass Index (BMI) 37.1 Intake & Output: Intake and Output for Last 24 Hours 10/09/24 10/10/24 10/11/24 23:59 23:59 23:59 Intake Total 4474.80 / 4474.80 1656.75 / 1656.75 Output Total 350 / 350 100 / 100 Balance 4124.80 / 4124.80 1556.75 / 1556.75 Lab / Micro Data 10/10/24 12:24 10/10/24 12:24 Labs: Laboratory Results - last 24 hr 10/10/24 12:24: WBC 20.9 H, RBC 3.18 L, Hgb 9.9 L, Hct 30.1 L, MCV 94.7 H, MCH 31.1, MCHC 32.9, RDW Std Deviation 55.2 H, RDW Coeff of Heath 15.9 H, Plt Count 224, MPV 11.1, Immature Gran % (Auto) 0.400, Neut % (Auto) 18.2 L, Lymph % (Auto) 73.9 H, [place] % (Auto) 5.4, Eos % (Auto) 1.7, Baso % (Auto) 0.4, Absolute Neuts (auto) 3.8, Absolute Lymphs (auto) 15.42 H, Nucleated RBC % 0.1, Diff Path Review October, Sodium 137, Potassium 5.0, Chloride 103, Carbon Dioxide 24.4, Anion Gap 10, BUN 21 H, Creatinine 1.23 H, Estim Creat Clear Calc 75.53, Est GFR (MDRD) Non-Af 65, BUN/Creatinine Ratio 17.2, Glucose 133 H, Lactic Acid 1.6, Calcium 8.9 10/10/24 17:40: Lactic Acid < 1.0 Radiography Diagnostic Testing: Radiology Impression Facial/Sinus 10/10/24 12:01 IMPRESSION: 1. 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 A central hypoenhancing/nonenhancing area measuring 1.5 cm could reflect abscess and/or a necrotic component. Inflammatory changes in the surrounding face may be reactive or reflect cellulitis. Trace thickening of the LEFT platysma may reflect myositis. Recommend clinical follow-up including ENT consultation. Nonurgent tissue sampling should be considered given long-term persistence of these findings and suspicion for neoplasm. If neoplasm is confirmed, suspicion for perineural spread would be high given the local extent of the findings, but would be best evaluated by outpatient MRI face with and without contrast if neoplasm is confirmed. 2. Mild [id number]-RIGHT cervical lymphadenopathy may be reactive or reflect metastatic disease. Recommend clinical follow-up to ensure resolution. Note that cervical and mediastinal lymphadenopathy below the field of view were also present on CT neck 04/05/2024, increasing the index of suspicion for metastatic disease given the severity of partially imaged mediastinal lymphadenopathy seen at that time. 3. Soft tissue thickening and/or cerumen in the immediately adjacent LEFT external auditory canal with associated narrowing. Unable to exclude direct neoplastic extension from the adjacent parotid gland lesion. Correlate with exam. 4. Additional description as above. Reading Location: [facility] Physical Exam Const alert and no apparent distress Constitutional Narrative: watching cartoons with sound on very high. HEENT head/scalp atraumatic HEENT Narrative: left lateral facial swelling. indurated. no purulence expressed. Resp normal respiratory effort, no retractions, no use of accessory muscles and clear to auscultation bilaterally Cardio regular rate, regular rhythm, S1 normal heart sound and S2 normal heart sound Assessment & Plan Assessment/Plan (1) Sepsis: PLAN: Present on admission qSOFA of 2 with blood pressure of 80/46 and encephalopathy. Patient received 30 cc/kg of IV fluid and blood pressure responded well. No need for pressors at this time. Patient was seen by myself after the administration IV fluids. Secondary to facial cellulitis/left parotitis with possible abscess/necrotic changes. Follow up cultures. Abx with pip/tazo and vancomycin Reportedly, the patient was just discharged from [facility]. Will request records as I am unable to access [facility] at this time (2) Cellulitis of face: PLAN: cellulitis v acute parotitis with abscess v necrotic changes. ENT consult (Dr. Owens notified and told Dr. Sidhu pt ok to remain here) Previously the patient has had fine-needle aspirations of his parotid gland which has come back negative for malignancy. (3) Encephalopathy: PLAN: Improved Patient is awake minimally verbal. Patient group work program director states that the patient is normally communicative. I suspect patient is having metabolic cephalopathy due to underlying sepsis cellulitis/parotitis. Avoid potentiating medications such as quetiapine and sertraline for now. PLAN: Plan Chronic conditions Hypertension: Hold antihypertensives for now given the recent hypotension that the patient had with his underlying sepsis. Gout: Continue with allopurinol Anemia: Continue ferrous sulfate VTE prophylaxis with enoxaparin. Though the patient is declining. I explained the risks and benefits. He initially agreed, only to decline later. Avoid SCDs given LE venous stasis ulcers. CODE STATUS Per previous documentation DNRCCA No intubation. Charges/Coding Visit Charges Inpatient E&M: 84039 Subs Hosp L2
[2024-10-11] MEDS: Piperacil/Tazobactam 3.375 GM in 0.9% Normal Saline (50mL MB+) 50 ML IV ×3 (08:13→23:14)
[2024-10-11] MEDS: Menthol/Lanolin/Calamine/Znox 113 GM Tube 1 APPLIC TOPICAL ×2 (08:16→23:12)
[2024-10-11] MEDS: Nystatin Powder 15gm Bottle 1 APPLIC TOPICAL ×2 (08:17→23:12)
[2024-10-11] MEDS: Loratadine 10 MG Tablet PO (08:18)
[2024-10-11] MEDS: Pantoprazole Sodium 40 MG Tablet PO (08:18)
[2024-10-11] MEDS: Allopurinol 300 MG Tablet PO (08:18)
[2024-10-11 11:01] LABS: Pathologist Review Reviewed
[2024-10-11] MEDS: Ensure Plus High Protein 120 ML LIQUID PO (11:09)
[2024-10-11] MEDS: Ferrous Sulfate 325 MG Tablet PO ×2 (11:09→16:42)
[2024-10-11 13:24] VITALS: BP 118/74; PULSE 80; RESP 20; TEMP 36.5; O2SAT 95
[2024-10-11 16:35] VITALS: BP 125/71; PULSE 89; RESP 16; TEMP 36.8; O2SAT 97
[2024-10-11 23:09] VITALS: BP 121/74; PULSE 81; RESP 18; TEMP 36.4; O2SAT 97
[2024-10-12 03:36] VITALS: BP 115/79; PULSE 83; RESP 18; TEMP 36.2; O2SAT 96
[2024-10-12] MEDS: Piperacil/Tazobactam 3.375 GM in 0.9% Normal Saline (50mL MB+) 50 ML IV (05:20)
--- NOTE | 2024-10-12 08:03 | PCM.PN.HOSP ---
Reason for Visit Reason for Visit: Diagnoses Sepsis, unspecified organism (10/10/24) Encephalopathy, unspecified (10/10/24) Cellulitis of face (10/10/24) Subjective Subjective Refusing labs and medications. Objective Data Objective Data Vital Signs: Vital Signs Temp Pulse Resp BP Pulse Ox O2 Del Method 36.2 C L 83 18 115/79 96 Room Air 10/12/24 03:36 10/12/24 03:36 10/12/24 03:36 10/12/24 03:36 10/12/24 03:36 10/12/24 03:43 Oxygen Delivery Method Room Air Weight: 114.1 kg Body Mass Index (BMI) 37.1 Intake & Output: Intake and Output for Last 24 Hours 10/10/24 10/11/24 10/12/24 23:59 23:59 23:59 Intake Total 4474.80 / 4474.80 3691.75 / 3691.75 50 / 50 Output Total 350 / 350 400 / 400 Balance 4124.80 / 4124.80 3291.75 / 3291.75 50 / 50 Lab / Micro Data 10/10/24 12:24 10/10/24 12:24 Labs: Laboratory Results - last 24 hr 10/10/24 12:24: Diff Path Review Reviewed Micro: Microbiology 10/10/24 14:10 Blood Culture (Wb) - Anticubital Right Blood Culture - Preliminary Physical Exam Const Constitutional Narrative: alert. non-toxic. afebrile. HEENT head/scalp atraumatic HEENT Narrative: swelling over left side of face with firmness. no fluctuance noted. Assessment & Plan Assessment/Plan (1) Sepsis: PLAN: Present on admission qSOFA of 2 with blood pressure of 80/46 and encephalopathy. Patient received 30 cc/kg of IV fluid and blood pressure responded well. No need for pressors at this time. Patient was seen by myself after the administration IV fluids. Secondary to facial cellulitis/left parotitis with possible abscess/necrotic changes. Follow up cultures. Abx with pip/tazo and vancomycin. Had a long conversation with the patient about the importance of taking antibiotics to treat his underlying infection. I told him that I will discharge him if he informs me that he will take his antibiotics as instructed that we will discharge him otherwise that I would need to keep urine here in the hospital to administer IV antibiotics. He verbally agreed to taking the antibiotics and understands that he needs to take the antibiotics. (2) Parotitis: PLAN: DW Dr. Owens, he feels that this acute parotitis. He does not feel the parotid area is neoplasm as it was previously biopsied, and unlikely abscess. He recommended 10-days of abx and to follow up as outpt. Pt may need to have his parotid gland removed at a later point. Patient to follow-up with ENT as outpatient. Previously the patient has had fine-needle aspirations of his parotid gland which has come back negative for malignancy. DC with Augmentin and doxycycline (to cover MRSA) (3) Encephalopathy: PLAN: Improved Patient is awake minimally verbal. Patient central office worker states that the patient is normally communicative. I suspect patient is having metabolic cephalopathy due to underlying sepsis cellulitis/parotitis. Avoid potentiating medications such as quetiapine and sertraline for now. PLAN: Plan Chronic conditions Hypertension: Hold antihypertensives for now given the recent hypotension that the patient had with his underlying sepsis. Gout: Continue with allopurinol Anemia: Continue ferrous sulfate VTE prophylaxis with enoxaparin. Though the patient is declining. I explained the risks and benefits. He initially agreed, only to decline later. Avoid SCDs given LE venous stasis ulcers. CODE STATUS Per previous documentation DNRCCA No intubation.
[2024-10-12 10:40] VITALS: BP 109/66; PULSE 78; RESP 18; TEMP 36.6; O2SAT 96
[2024-10-12] MEDS: Loratadine 10 MG Tablet PO (10:44)
--- NOTE | 2024-10-12 11:09 | CASEMGMT ---
Patient is [facility] for [facility]. ELSA called a previous number for a Georgiana with the [facility]. ELSA was informed the correct person to call would be Rossy at [phone]. ELSA called Rossy and let her know patient will be discharged today. Rossy asked that d/c orders be faxed to [phone]. Should patient be discharged on a short term medication or one that he needs right away script should be sent to [facility]. Otherwise scripts should be sent to [facility]. Rossy asked that ELSA call her when ELSA has an idea of when they can come and pick patient up. Maggie Medeiros [employer]
--- NOTE | 2024-10-12 11:14 | DS.PCM_ITS ---
Providers Date of Admission: 10/10/24 Primary Care Physician: Dr. Anthony Vang MD Consultations 10/10/24 17:59 Consult: ENT Routine Consulting Provider: Noam Owens Reason for Consult: parotid abscess EMERGENT Consult: No MD Notified: Yes Date Notified: 10/10/24 Time Notified: 17:18 Method of Notification: ED Physician Initiated Reason For Visit: SEPSIS Diagnosis Discharge Diagnosis (1) Sepsis: Status: Acute Code(s): A41.9 - Sepsis, unspecified organism Plan: Present on admission qSOFA of 2 with blood pressure of 80/46 and encephalopathy. Patient received 30 cc/kg of IV fluid and blood pressure responded well. No need for pressors at this time. Patient was seen by myself after the administration IV fluids. Secondary to facial cellulitis/left parotitis with possible abscess/necrotic changes. Follow up cultures. Abx with pip/tazo and vancomycin. Had a long conversation with the patient about the importance of taking antibiotics to treat his underlying infection. I told him that I will discharge him if he informs me that he will take his antibiotics as instructed that we will discharge him otherwise that I would need to keep urine here in the hospital to administer IV antibiotics. He verbally agreed to taking the antibiotics and understands that he needs to take the antibiotics. (2) Parotitis: Status: Acute Code(s): K11.20 - Sialoadenitis, unspecified Plan: DW Dr. Owens, he feels that this acute parotitis. He does not feel the parotid area is neoplasm as it was previously biopsied, and unlikely abscess. He recommended 10-days of abx and to follow up as outpt. Pt may need to have his parotid gland removed at a later point. Patient to follow-up with ENT as outpatient. Previously the patient has had fine-needle aspirations of his parotid gland which has come back negative for malignancy. DC with Augmentin and doxycycline (to cover MRSA) (3) Encephalopathy: Status: Acute Code(s): G93.40 - Encephalopathy, unspecified Plan: Improved Patient is awake minimally verbal. Patient machine group leader states that the patient is normally communicative. I suspect patient is having metabolic cephalopathy due to underlying sepsis cellulitis/parotitis. Avoid potentiating medications such as quetiapine and sertraline for now. Plan Chronic conditions * Hypertension: Hold antihypertensives for now given the recent hypotension that the patient had with his underlying sepsis. * Gout: Continue with allopurinol * Anemia: Continue ferrous sulfate VTE prophylaxis with enoxaparin. Though the patient is declining. I explained the risks and benefits. He initially agreed, only to decline later. Avoid SCDs given LE venous stasis ulcers. CODE STATUS Per previous documentation DNRCCA No intubation. Medications at Discharge Home Medications lisinopril 10 mg tablet 10 mg PO DAILY BP 12/15/16 amlodipine 5 mg tablet 5 mg PO DAILY #30 tabs 09/09/23 pantoprazole 40 mg tablet,delayed release 40 mg PO BID #0 tabs 09/09/23 furosemide 40 mg tablet (Lasix) 40 mg PO DAILY 11/18/23 multivitamin 1 tab PO DAILY 11/18/23 docusate sodium 100 mg capsule 100 mg PO BID PRN constipation 01/28/24 ferrous sulfate 325 mg (65 mg iron) tablet (FeroSul) 325 mg PO BID 01/28/24 fluticasone propionate 50 mcg/actuation nasal spray,suspension 1 spray intranasal DAILY PRN nasal congestion 01/28/24 loratadine 10 mg tablet 10 mg PO DAILY 01/28/24 allopurinol 300 mg tablet 300 mg PO DAILYCM 30 days #30 tabs 02/01/24 acetaminophen 500 mg tablet 1,000 mg PO TID PAIN 10/10/24 montelukast 10 mg tablet 10 mg PO QHS 10/10/24 mupirocin 2 % topical ointment 1 applic topical TID LEGS AND FOREHEAD 10/10/24 quetiapine 50 mg tablet 50 mg PO TID 10/10/24 sertraline 50 mg tablet 50 mg PO DAILY 10/10/24 amoxicillin 875 mg-potassium clavulanate 125 mg tablet 1 tab PO Q12H #20 tabs 10/12/24 doxycycline monohydrate 100 mg capsule 100 mg PO BID #20 caps 10/12/24 Hospital Course Operations None Procedures None Summary of Care Provided Minutes Spent on Discharge: 32 Weight / BMI Weight Weight: 114.1 kg Body Mass Index (BMI) 37.1 ABG / Lab / Microbiology Data 10/10/24 12:24 10/10/24 12:24 Microbiology: Microbiology 10/10/24 14:10 Blood Culture (Wb) - Anticubital Right Blood Culture - Preliminary 10/10/24 13:45 Blood Culture (Wb) - Venous Blood Culture - Preliminary No growth in 48 hours. D/C Instructions Discharge Diet: No restrictions DC O2, CPAP, BIPAP Needs Home O2 Discharge instructions: No Meaningful Use Info Meaningful Use Meaningful Use Diagnoses (Choose all that apply): None applicable Ischemic Stroke Statin Dosing Therapy Reference: STATIN DOSE THERAPY REFERENCE: * Patients > 75 years receive moderate or high dose statin therapy. * Patients 75 years or YOUNGER should receive HIGH intensity statin dose unless contraindicated. You will be required to document reason for non-treatment if statin daily dose does not meet guidelines. HIGH DOSE STATIN THERAPY DAILY Atorvastatin > than or = to 40 mg Rosuvastatin > than or = to 20 mg Amlodipine + Atorvastatin > than or = to 2.5/40 mg Ezetimibe + Simvastatin 10/80 mg Simvastatin 80mg Discharge Plan Admission Admit Date/Time: 10/10/24 17:05 Primary Reason for Your Visit: acute left parotitis Attending Provider: Tevin Jaramillo Primary Care Provider: Anthony Vang Consulting Providers: Noam Owens Instructions Additional Instructions / Restrictions: Take your antibiotics as instructed. Follow-up with Dr. Owens in about a month for evaluation of your parotid gland. Discharge Orders/Prescriptions Prescriptions: New amoxicillin-pot clavulanate 875-125 mg tablet 1 tab PO Q12H Qty: 20 0RF doxycycline monohydrate 100 mg capsule 100 mg PO BID Qty: 20 0RF Continued lisinopril 10 MG tablet 10 mg PO DAILY Patient Comments: Blood pressure pantoprazole 40 mg Tablet,Delayed Release (Dr/Ec) 40 mg PO BID Qty: 0 0RF amlodipine 5 mg tablet 5 mg PO DAILY Qty: 30 0RF ferrous sulfate [FeroSul] 325 mg (65 mg iron) tablet 325 mg PO BID docusate sodium 100 mg capsule 100 mg PO BID PRN (Reason: constipation) fluticasone propionate 50 mcg/actuation spray,suspension 1 spray INTRANASAL DAILY PRN (Reason: nasal congestion) Patient Comments: [NO ORIGINAL SIG] loratadine 10 mg tablet 10 mg PO DAILY allopurinol 300 mg Tablet 300 mg PO DAILYCM 30 Days Qty: 30 0RF furosemide [Lasix] 40 mg tablet 40 mg PO DAILY multivitamin Tablet 1 tab PO DAILY acetaminophen 500 mg tablet 1,000 mg PO TID montelukast 10 mg tablet 10 mg PO QHS mupirocin 2 % ointment 1 applic topical TID sertraline 50 mg tablet 50 mg PO DAILY quetiapine 50 mg tablet 50 mg PO TID Discontinued potassium chloride 20 mEq tablet extended release 20 meq PO BID Qty: 30 0RF Referrals / Follow Up: Anthony Vang MD [Primary Care Provider] - Within 2 Weeks Tyler Owens MD [Med Staff - Active Staff] - Within 1 Month Disposition Disposition (needs filled in before D/C Order can be placed): Home, Self Care Charges/Coding Visit Charges Inpatient E&M: 12254 Disch Hosp >30min
--- NOTE | 2024-10-12 11:50 | CASEMGMT ---
ELSA faxed d/c orders to the long term fax given to ELSA [phone]. ELSA also called Rossy with the long term and let her know that patient is ready to go anytime. ELSA asked that Rossy call ELSA when she has an idea when someone will be in to get patient. Rossy asked for a return to work excuse. ELSA notified RN about this. ELSA did talk with physician about return to work excuse and he said patient can return anytime. Maggie Medeiros [employer]
--- NOTE | 2024-10-12 13:29 | NURSING ---
Patient refused all medication this morning. MD was notified. When caregiver came to pick up attendant the patient for discharge back to the detention, the caregiver stated that patient will usually comply if you offer nirali and juan diego for future reference.
== END 2024-10-12 13:33 | disposition home or self-care (01) | DRG 154 ==
LOC: ED 16:50 → PCU 17:25
PROVIDERS: Emergency Provider Emergency Medicine; PCP Family Medicine
DX: K11.21 Acute sialoadenitis (principal); A41.9 Sepsis, unspecified organism; G93.41 Metabolic encephalopathy; L02.01 Cutaneous abscess of face; L03.211 Cellulitis of face; I10 Essential (primary) hypertension; D64.9 Anemia, unspecified; D37.030 Neoplasm of uncertain behavior of the parotid salivary glands; I95.9 Hypotension, unspecified; M10.9 Gout, unspecified; K21.9 Gastro-esophageal reflux disease without esophagitis; M60.9 Myositis, unspecified
CPT/HCPCS: 70487; 80048; 83605; 85025; 87040; 87149; 97161; 97166; 97802; 99285; Q9967; A4216; J0295

== ENCOUNTER → 2025-05-25 | Outpatient (CLI) | payer MEDICARE, MEDICAID, SELFPAY ==
[2025-05-25 16:13] LABS: Mucous, Urine 0 SEEN /hpf (<or=2+)
[2025-05-25 17:41] LABS: Color, Urine Straw (Yellow); Glucose, Dipstick Normal (Normal); Ketone-Dipstick Negative (Negative); Leukocyte Esterase-Dipstick Negative /ul (Negative); Nitrite-Dipstick Negative (Negative); Occult Blood-Urine Negative /ul (Negative); Protein-Dipstick 15 mg/dl (Negative); Specific Gravity, Urine 1.015 (1.002-1.030); Urine Bilirubin Dipstick Negative (Negative)
[2025-05-25 18:34] LABS: Red Blood Cells-Urine 0-5 SEEN /hpf (0-5); Squamous Epithelial Cells - UA 0-5 SEEN /hpf (0-5)
== END | disposition home or self-care (01) ==
LOC: LABSPEC 15:52
PROVIDERS: PCP Family Medicine
DX: R35.0 Frequency of micturition (principal); R82.998 Other abnormal findings in urine
CPT/HCPCS: 81001; 87086